=== PATIENT | female | born 1965 | race Caucasian/White ===

== ENCOUNTER → 2018-01-29 11:33 | Outpatient (CLI) | payer MEDICARE, SELFPAY ==
--- NOTE | 2018-01-29 11:40 | RAD_ITS ---
STUDY: X-RAY - LEFT KNEE REASON FOR EXAM: Female, 52 years old. Patient fell. Pain TECHNIQUE: 4 view(s) of the knee. COMPARISON: January 16, 2016 FINDINGS: There is a total left knee replacement with a metallic hardware in good position. There are no acute fractures. The quadriceps and patellar tendons are normal and there is no knee joint effusion. RAD/Knee 4 or More Views IMPRESSION: Total knee replacement. Nothing acute Electronically Signed: Gunnar Mandel, at 5:17 EDT Tel , Service support ,
== END ==
PROVIDERS: Family Provider Family Medicine; PCP Family Medicine; Visit Provider Family Medicine
DX: M25.562 Pain in left knee (principal)
CPT/HCPCS: 73564

== ENCOUNTER 2018-05-03 11:30 | Outpatient (RCR) | payer MEDICARE, SELFPAY ==
--- NOTE | 2018-03-22 14:55 | HP.PTEVAL ---
Patient's Visit Information NU RAMOS is a 52 year old F referred to Physical Therapy by Klaudia Ashley DO with a diagnosis of Left Knee Pain. Date of Evaluation: 03/22/18 Physical Therapist: Celeste Perkins - Visit Plan Frequency: 3x /Week Duration: 3 Weeks Plan: Focus on LE and core s/s for functional mobility in an aquatic setting - Subjective Subjective: Patient reports that a couple of years ago she had a TKR on the left- fell on it and has bursitis. She has Bariatric surgery in January- she has to use a cart at [facility] due to the knee pain. TKR in the left 2 years ago then 6 months later had a fall but everything looks good on it. The right is very arthritic. Trying to get her weight down and she can't get down on her knees. Recently landed on the knee again and its pretty sore. Left: worst: 10 right: 10 but thats like that all the time- is probably going have to have that replaced. Does not get out of bed befoer she takes a pain pill (Tramadol and Tylenol)- has to use a cane in the AM. Both knees give out on her. Most comfortable position is sitting. 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 Pain is located on the anterior knee and the medial knee. Dr. Acevedo did her knee replacement. No radiating pain- no N/T in the feet. Has not had recent injections in her knees. Had x-rays on the knee which was good. Describes the pain as sharp/shooting and hard to put weight through it. Is not currently seeing an ortho for the right knee. One story home with 3 stairs to get in- no problems negotiating them. Sleep: sometimes it wakes her up at night. PMHx/Meds: no changes - Objective Posture: FH, RS. Gait: slightly antalgic- decreased stance on the left LE with poor heel/toe pattern. Stairs: asc/desc 8 recip with 2 HR- slow neeta with poor control with descent. HR/TR: able with pain TR. Balance: unable to SLS without UE A. Palpation: tender along medial joint line and patella. Observation: mild swelling distal to the patealla. ROM: 0-120 degrees. Strength: Ankle: 5/5, Knee: 4/5, Hip: 4/5 Core: fair minus. Flex: HS: moderate, Gastroc: moderate - Goals Goal 1:: Patient will be I with HEP and progression Goal Time Frame: 4-6 Weeks Goal 2:: Patient will demo 4+/5 strength in LE Goal Time Frame: 4-6 Weeks Goal 3:: Patient will asc/desc 8 stairs with 1 HR and good control Goal Time Frame: 4-6 Weeks Goal 4:: Patient will ambulate >300 feet with a normalized gait pattern Goal Time Frame: 4-6 Weeks - Rehabilitation Potential Physical Therapy Diagnosis: Patient presents with hypomobility- she has decreased strength and muscular endurance leading to abnormal giat and pain with ADL's. Rehabilitation Potential: Fair - Anticipated Interventions Patient/Client Instruction: Educate patient on: Benefits of Fitness Program Therapeutic Exercise to Include: Power training, Balance training, Body mechanics, Postural training, Flexibilty training, Gait and locomotor training, In an aquatic setting Thank you for the opportunity to evaluate your patient. For Medicare and Medicare HMO plans, please review the plan of care and approve it. It will need to be FAXED BACK to us at [phone] for Medicare purposes. Please let me know if there are questions or concerns regarding this plan of care. Physician Signature: Date:
--- NOTE | 2018-04-12 15:31 | HP.PTREVAL ---
Klaudia Ashley, DO, It has been my pleasure to treat NU RAMOS over the last 8 visits for Left Knee Pain. Please see the progress note below for an update on the physical therapy plan of care! Subjective: Patient reports that the knee is stronger but the pain is still there. Feels like something on the top of the knee is dented. Worst: 10/10- along the medial side of the knee- In the water she is much more stable. Is able to do more on land now and can go up/down the stairs with more confidence. Sleep: sometimes disturbed- gets up in the AM and takes her pill due to the OA and the weather. 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 Pretty sore after being up on it for long periods of time. Objective/Function: Posture: no pertinent abnormalities. Observation: R medial infrapatellar bursitits. Gait: WFL, slight lateral lean to L, favoring R leg. Stairs: 1 HR reciprocal pattern ascend and descend; favor R leg. AROM: LE WNL, able to toe and heel raise with PT hand placement on shoulder, unstable. Balance: SLS R le seconds, unstable. SLS L leg: unable to perform due to instability. Strength: LE 5/5 throughout. Plan Plan: Progression to land exercise program and dry needling modality. Goals Goal 1:: Patient will be I with HEP and progression Goal Time Frame: 4-6 Weeks Goal Progress: Progressing Goal 2:: Patient will demo 4+/5 strength in LE Goal Time Frame: 4-6 Weeks Goal Progress: Goal Met Goal 3:: Patient will asc/desc 8 stairs with 1 HR and good control Goal Time Frame: 4-6 Weeks Goal Progress: Goal Met Goal 4:: Patient will ambulate >300 feet with a normalized gait pattern Goal Time Frame: 4-6 Weeks Goal Progress: Progressing Goal 5:: Jennnet will SLS for 10 seconds on each LE Goal Time Frame: 4-6 Weeks Anticipated Interventions Patient/Client Instruction: Educate patient on: Benefits of Fitness Program Therapeutic Exercise to Include: Power training, Balance training, Body mechanics, Postural training, Flexibilty training, Gait and locomotor training, In an aquatic setting Please do not hesitate to contact me at [phone] by phone or if you have questions or concerns regarding this new plan of care! Sincerely, Celeste Perkins
--- NOTE | 2018-05-03 13:23 | HP.PTDCSUM_ITS ---
HP - PT D/C Summary It has been my pleasure to treat NU RAMOS under orders from Klaudia Ashley DO, for the diagnosis of Left Knee Pain for a total of 14 visit(s). Discharge Date: Please see the following information for a summary of their discharge status. - Subjective Subjective: [place] pretty good all day after performing housework all of Thursday. Knee feels really good today. Current pain 0/10, best 0/10, worst 3/10. Pain stays local. No trouble at home or with stairs. Doing more than thought able to do. Plans to take knee brace at beach. 90% better than when came in; really enjoyed dry needling. - Pain L knee Pain Intensity (Out of 10): 3 - Overall Improvement % Improvement: 90 - Objective Objective/Function: Gait: WFL. Stairs: ascend with 1 HR reciprocally with good control; descend reciprocally no HR. AROM: LE WFL. Able to heel raise without UE support, required UE support and tactile lumbar support to toe raise. Balance: SL 14 seconds on L and 7 seconds on R. Strength: LE 5/5 bilat throughout except R hip flex. 4+/5. - Goals Goal 1:: Patient will be I with HEP and progression Goal Progress: Goal Met Goal 2:: Patient will demo 4+/5 strength in LE Goal Progress: Goal Met Goal 3:: Patient will asc/desc 8 stairs with 1 HR and good control Goal Progress: Goal Met Goal 4:: Patient will ambulate >300 feet with a normalized gait pattern Goal Progress: Goal Met Goal 5:: Jennnet will SLS for 10 seconds on each LE Goal Progress: Progressing - Plan Plan: Discharge to HEP. - D/C Information If there are questions or concerns regarding this patient's physical therapy, please feel free to call me at [phone]. Thank you for the referral of this patient. Sincerely, Celeste Perkins
== END 2018-05-03 19:00 | disposition home or self-care (01) ==
LOC: PT 11:30
PROVIDERS: Family Provider Family Medicine; PCP Family Medicine; Visit Provider Family Medicine
DX: M25.562 Pain in left knee (principal); M70.52 Other bursitis of knee, left knee
CPT/HCPCS: 97110; 97113; 97161; 97164

== ENCOUNTER → 2018-05-31 16:18 | Outpatient (CLI) | payer MEDICARE, SELFPAY ==
[2018-05-31 17:38] LABS: Erythrocyte Sedimentation Rate 49 mm/hr (0-30)
[2018-05-31 18:00] LABS: Rheumatoid Factor < 10.0 IU/mL (<15)
[2018-06-02 14:43] LABS: ANTINUCLEAR ANTIBODIES DIRECT Negative (Negative)
[2018-06-04 11:31] LABS: CCP IgG Antibodies 8 units (0-19)
== END ==
PROVIDERS: Family Provider Family Medicine; PCP Family Medicine; Visit Provider Family Medicine
DX: M79.10 Myalgia, unspecified site (principal); M25.50 Pain in unspecified joint
CPT/HCPCS: 36415; 85652; 86038; 86140; 86200; 86431

== ENCOUNTER → 2018-06-28 12:18 | Outpatient (CLI) | payer MEDICARE, SELFPAY ==
[2017-03-24 08:41] VITALS: BMI 47.2
--- NOTE | 2018-06-28 12:25 | RAD_ITS ---
HISTORY: inflammatory polyarthropathy COMPARISON: None FINDINGS: AP Pelvis: 1 view. The right and left hips are symmetrical and appear normal. Right pelvic phlebolith. No fracture or acute disease. Degenerative arthritis with marginal sclerosis and inferior spurring of the left SI joint. Degenerative spondylosis of the lower lumbar spine. RAD/Pelvis 1 or 2 Views IMPRESSION: 1. Lower lumbar degenerative spondylosis and left SI joint degenerative arthritis. 2. Negative bilateral hips. 3. No acute disease. at 0441 Reported and signed by: Ian Muro MD Electronically Signed: Ian Muro, at 4:39 EST Tel , Service support ,
[2018-06-28 14:25] LABS: Absolute Lymphocyte Count 3.09 X10^3/ul (0.83-4.51); Absolute Neutrophil Count 3.5 X10^3/uL (2.0-7.7); Basophil# 0.06 X10^3/uL; Basophil% 0.8 % (0-1); Eosinophils% 1.4 % (0-5); Hematocrit 41.9 % (37-47); Lymphocyte # 3.09 X10^3/ul (4.0); Mean Corp Hgb Conc 33.4 g/gl (32-36); Mean Corpuscular Hgb 32.2 pg (27.0-32.0); Mean Corpuscular Volume 96.3 fL (81-99); Mean Platelet Vol. 11.1 fl (6.2-12.0); Monocyte# 0.45 X10^3/uL; Monocyte% 6.3 % (0-10); Neutrophil # 3.46 X10^3/uL (2.7-7.7); Neutrophil % 48.2 % (47-70); Platelet Count 263 K/mm3 (150-450); RBC Distribution Width CV 15.4 % (11.6-14.6); RBC Distribution Width SD 52.5 fl (35.1-43.9); Red Blood Count 4.35 M/mm3 (4.2-5.4); White Blood Count 7.2 K/mm3 (4.4-11.0)
[2018-06-28 14:30] LABS: POSITIVE COUNT NO; POSITIVE DIFFERENTIAL NO; POSITIVE MORPHOLOGY NO
[2018-06-28 14:33] LABS: Erythrocyte Sedimentation Rate 19 mm/hr (0-30)
[2018-06-28 15:00] LABS: ALB/GLOB Ratio 0.8 RATIO (0.9-2.4); AST(SGOT) 22 U/L (15-37); Alanine Aminotransfer ALT/SGPT 27 U/L (13-56); Albumin, Serum 3.5 g/dL (3.2-5.0); Alkaline Phosphatase 116 U/L (45-117); Anion Gap 12 (5-15); BUN 15 mg/dL (7-18); BUN/Creat Ratio 15.1 RATIO (10-20); Calcium,Total 9.3 mg/dL (8.5-10.1); Chloride 99 mmol/L (98-107); EST Glomerular Filtration Rate 62 mL/min (>60); Est Glom Filt Rate - Afr Amer 75 mL/min (>60); Globulin 4.3 g/dL (2.2-4.2); Glucose 85 mg/dL (74-106); Potassium 2.7 mmol/L (3.5-5.1); Protein, Total 7.8 g/dL (6.4-8.2); Rheumatoid Factor < 10.0 IU/mL (<15); Sodium Level 141 mmol/L (136-145)
[2018-06-29 16:51] LABS: ANTINUCLEAR ANTIBODIES DIRECT Negative (Negative)
[2018-07-03 09:21] LABS: CCP IgG Antibodies 9 units (0-19); HEPATITIS B SURFACE AG Negative (Negative); HLA B27 Positive (.); Hep B Surface Antibodies Non Reactive (.); Hep C Antibodies 0.2 s/co ratio (0.0-0.9)
== END ==
PROVIDERS: Family Provider Family Medicine; PCP Family Medicine; Referring Provider Internal Medicine Rheumatology; Visit Provider Internal Medicine Rheumatology
DX: M06.4 Inflammatory polyarthropathy (principal); M17.0 Bilateral primary osteoarthritis of knee; M21.40 Flat foot [pes planus] (acquired), unspecified foot; K21.9 Gastro-esophageal reflux disease without esophagitis; Z87.11 Personal history of peptic ulcer disease; Z98.84 Bariatric surgery status
CPT/HCPCS: 36415; 72170; 80053; 81374; 85025; 85652; 86038; 86140; 86200; 86431; 86706; 86803; 87340

== ENCOUNTER → 2018-07-12 14:49 | Outpatient (CLI) | payer MEDICARE, SELFPAY ==
[2018-07-12 18:29] LABS: Anion Gap 10 (5-15); BUN 10 mg/dL (7-18); Calcium,Total 8.8 mg/dL (8.5-10.1); Chloride 100 mmol/L (98-107); Creatinine, Serum 0.91 mg/dL (0.55-1.02); EST Glomerular Filtration Rate 68 mL/min (>60); Est Glom Filt Rate - Afr Amer 83 mL/min (>60); Glucose 85 mg/dL (74-106); Potassium 3.3 mmol/L (3.5-5.1); Sodium Level 140 mmol/L (136-145)
== END ==
PROVIDERS: Family Provider Family Medicine; PCP Family Medicine; Visit Provider Family Medicine
DX: E87.6 Hypokalemia (principal)
CPT/HCPCS: 36415; 80048

== ENCOUNTER → 2019-01-17 | Outpatient (CLI) | payer MEDICARE, SELFPAY ==
[2017-03-24 08:41] VITALS: BMI 47.2
[2019-01-17 10:21] LABS: Absolute Lymphocyte Count 1.85 X10^3/ul (0.83-4.51); Absolute Neutrophil Count 3.7 X10^3/uL (2.0-7.7); Basophil# 0.06 X10^3/uL; Eosinophil# 0.07 X10^3/uL; Eosinophils% 1.1 % (0-5); Hematocrit 39.8 % (37-47); Hemoglobin 13.1 g/dl (12.0-15.0); Lymphocyte # 1.85 X10^3/ul (4.0); Lymphocyte % 29.5 % (19-41); Mean Corp Hgb Conc 32.9 g/gl (32-36); Mean Corpuscular Hgb 33.7 pg (27.0-32.0); Mean Corpuscular Volume 102.3 fL (81-99); Mean Platelet Vol. 10.4 fl (6.2-12.0); Monocyte# 0.61 X10^3/uL; Monocyte% 9.7 % (0-10); Neutrophil # 3.68 X10^3/uL (2.7-7.7); Neutrophil % 58.5 % (47-70); Platelet Count 269 K/mm3 (150-450); RBC Distribution Width CV 16.3 % (11.6-14.6); RBC Distribution Width SD 61.2 fl (35.1-43.9); Red Blood Count 3.89 M/mm3 (4.2-5.4); White Blood Count 6.3 K/mm3 (4.4-11.0)
[2019-01-17 10:22] LABS: POSITIVE COUNT NO; POSITIVE DIFFERENTIAL NO; POSITIVE MORPHOLOGY NO
[2019-01-17 11:05] LABS: ALB/GLOB Ratio 0.8 RATIO (0.9-2.4); AST(SGOT) 45 U/L (15-37); Alanine Aminotransfer ALT/SGPT 40 U/L (13-56); Albumin, Serum 3.4 g/dL (3.2-5.0); Alkaline Phosphatase 111 U/L (45-117); Anion Gap 12 (5-15); BUN 10 mg/dL (7-18); Calcium,Total 9.4 mg/dL (8.5-10.1); Chloride 101 mmol/L (98-107); Creatinine, Serum 0.83 mg/dL (0.55-1.02); EST Glomerular Filtration Rate 76 mL/min (>60); Est Glom Filt Rate - Afr Amer 92 mL/min (>60); Glucose 75 mg/dL (74-106); Potassium 3.1 mmol/L (3.5-5.1); Protein, Total 7.4 g/dL (6.4-8.2); Sodium Level 141 mmol/L (136-145)
== END | disposition home or self-care (01) ==
LOC: MTLAB 08:34
PROVIDERS: Family Provider Family Medicine; PCP Family Medicine; Referring Provider Internal Medicine Rheumatology; Visit Provider Internal Medicine Rheumatology
DX: M06.4 Inflammatory polyarthropathy (principal); M17.0 Bilateral primary osteoarthritis of knee; M21.40 Flat foot [pes planus] (acquired), unspecified foot; K21.9 Gastro-esophageal reflux disease without esophagitis; Z87.11 Personal history of peptic ulcer disease; Z98.84 Bariatric surgery status; Z79.899 Other long term (current) drug therapy
CPT/HCPCS: 36415; 80053; 85025

== ENCOUNTER → 2019-09-05 | Outpatient (CLI) | payer MEDICARE, SELFPAY ==
[2017-03-24 08:41] VITALS: BMI 47.2
[2019-09-05 12:23] LABS: Absolute Lymphocyte Count 0.81 X10^3/uL (0.83-4.51); Absolute Neutrophil Count 5.2 X10^3/uL (2.0-7.7); Basophil# 0.09 X10^3/uL; Basophil% 1.4 % (0-1); Eosinophil# 0.02 X10^3/uL; Eosinophils% 0.3 % (0-5); Hematocrit 41.1 % (37-47); Hemoglobin 13.5 g/dL (12.0-15.0); Lymphocyte # 0.81 X10^3/ul (4.0); Lymphocyte % 12.8 % (19-41); Mean Corp Hgb Conc 32.8 g/dL (32-36); Mean Corpuscular Hgb 34.8 pg (27.0-32.0); Mean Corpuscular Volume 105.9 fL (81-99); Mean Platelet Vol. 9.3 fl (6.2-12.0); Monocyte# 0.27 X10^3/uL; Monocyte% 4.3 % (0-10); NRBC Flagged by Analyzer 0 % (0-5); Neutrophil # 5.15 X10^3/uL (2.7-7.7); Platelet Count 283 K/mm3 (150-450); RBC Distribution Width CV 14.9 % (11.6-14.6); Red Blood Count 3.88 M/mm3 (4.2-5.4); White Blood Count 6.4 K/mm3 (4.4-11.0)
[2019-09-05 12:31] LABS: ALB/GLOB Ratio 0.9 RATIO (0.9-2.4); AST(SGOT) 63 U/L (15-37); Alanine Aminotransfer ALT/SGPT 60 U/L (13-56); Albumin, Serum 3.7 g/dL (3.2-5.0); Alkaline Phosphatase 105 U/L (45-117); Anion Gap 6 (5-15); BUN 9 mg/dL (7-18); BUN/Creat Ratio 12.4 RATIO (10-20); Calcium,Total 9.4 mg/dL (8.5-10.1); Chloride 105 mmol/L (98-107); Creatinine, Serum 0.73 mg/dL (0.55-1.02); EST Glomerular Filtration Rate 88 mL/min (>60); Est Glom Filt Rate - Afr Amer 107 mL/min (>60); Globulin 3.9 g/dL (2.2-4.2); Glucose 95 mg/dL (74-106); Potassium 3.6 mmol/L (3.5-5.1); Protein, Total 7.6 g/dL (6.4-8.2); Sodium Level 138 mmol/L (136-145)
== END | disposition home or self-care (01) ==
LOC: MTLAB 10:41
PROVIDERS: PCP Family Medicine; Referring Provider Internal Medicine Rheumatology; Visit Provider Internal Medicine Rheumatology
DX: M06.4 Inflammatory polyarthropathy (principal); M17.0 Bilateral primary osteoarthritis of knee; M21.40 Flat foot [pes planus] (acquired), unspecified foot; K21.9 Gastro-esophageal reflux disease without esophagitis; Z87.11 Personal history of peptic ulcer disease; Z98.84 Bariatric surgery status; Z79.899 Other long term (current) drug therapy
CPT/HCPCS: 36415; 80053; 85025

== ENCOUNTER → 2020-01-11 | Outpatient (CLI) | payer MEDICARE, SELFPAY ==
[2017-03-24 08:41] VITALS: BMI 47.2
[2020-01-11 15:34] LABS: Absolute Lymphocyte Count 1.79 X10^3/uL (0.83-4.51); Absolute Neutrophil Count 2.7 X10^3/uL (2.0-7.7); Basophil# 0.08 X10^3/uL; Basophil% 1.5 % (0-1); Eosinophil# 0.06 X10^3/uL; Eosinophils% 1.1 % (0-5); Hematocrit 39.4 % (37-47); Hemoglobin 12.8 g/dL (12.0-15.0); Lymphocyte # 1.79 X10^3/ul (4.0); Lymphocyte % 34.1 % (19-41); Mean Corp Hgb Conc 32.5 g/dL (32-36); Mean Corpuscular Hgb 35.4 pg (27.0-32.0); Mean Corpuscular Volume 108.8 fL (81-99); Mean Platelet Vol. 10.8 fl (6.2-12.0); Monocyte# 0.59 X10^3/uL; Monocyte% 11.2 % (0-10); NRBC Flagged by Analyzer 0 % (0-5); Neutrophil # 2.71 X10^3/uL (2.7-7.7); Neutrophil % 51.7 % (47-70); Platelet Count 140 K/mm3 (150-450); RBC Distribution Width CV 15.7 % (11.6-14.6); RBC Distribution Width SD 62.4 fl (35.1-43.9); Red Blood Count 3.62 M/mm3 (4.2-5.4); White Blood Count 5.3 K/mm3 (4.4-11.0)
[2020-01-11 15:43] LABS: Vitamin B12 819 pg/mL (211-911)
[2020-01-11 16:27] LABS: ALB/GLOB Ratio 0.9 RATIO (0.9-2.4); AST(SGOT) 221 U/L (15-37); Alanine Aminotransfer ALT/SGPT 104 U/L (13-56); Albumin, Serum 3.2 g/dL (3.2-5.0); Alkaline Phosphatase 139 U/L (45-117); Anion Gap 9 (5-15); BUN 10 mg/dL (7-18); Calcium,Total 8.8 mg/dL (8.5-10.1); Chloride 101 mmol/L (98-107); Creatinine, Serum 0.83 mg/dL (0.55-1.02); EST Glomerular Filtration Rate 75 mL/min (>60); Est Glom Filt Rate - Afr Amer 91 mL/min (>60); Ferritin 149 ng/mL (8-252); Globulin 3.6 g/dL (2.2-4.2); Glucose 92 mg/dL (74-106); Iron 51 ug/dL (50-170); Magnesium 1.5 mg/dL (1.6-2.6); Potassium 2.9 mmol/L (3.5-5.1); Protein, Total 6.8 g/dL (6.4-8.2); Sodium Level 141 mmol/L (136-145); Thyroid Stim Hormone (TSH) 0.82 uIU/mL (0.358-3.74)
--- OUTSIDE RECORDS SUMMARY | 2020-05-20 11:05 | XMS RPT_ITS | CCD ---
:1965 External Reference #:[id number] Author Organization [facility] Care Team Providers Name Role Phone LAKTASH, (MACHINE STRAP BUCKLER) Unavailable Unavailable HUNTER, (MACHINE STRAP BUCKLER) Unavailable Unavailable KINGSLEY Unavailable Unavailable KINGSLEY Unavailable Unavailable LAKTASH, (MACHINE STRAP BUCKLER) Unavailable Unavailable LAKTASH, (MACHINE STRAP BUCKLER) Unavailable Unavailable HOWARD Unavailable Unavailable KINGSLEY Unavailable Unavailable HOWARD Unavailable Unavailable LAKTASH, (MACHINE STRAP BUCKLER) Unavailable Unavailable LAKTASH, (MACHINE STRAP BUCKLER) Unavailable Unavailable LAKTASH, (MACHINE STRAP BUCKLER) Unavailable Unavailable LAKTASH, (MACHINE STRAP BUCKLER) Unavailable Unavailable HOWARD Unavailable Unavailable HOWARD Unavailable Unavailable LAKTASH, (MACHINE STRAP BUCKLER) Unavailable Unavailable LAKTASH, (MACHINE STRAP BUCKLER) Unavailable Unavailable LAKTASH, (MACHINE STRAP BUCKLER) Unavailable Unavailable LAKTASH, (MACHINE STRAP BUCKLER) Unavailable Unavailable MIEDEL, JONO Unavailable Unavailable LAKTASH, (MACHINE STRAP BUCKLER) Unavailable Unavailable LAKTASH, (MACHINE STRAP BUCKLER) Unavailable Unavailable KINGSLEY Unavailable Unavailable KINGSLEY Unavailable Unavailable LAKTASH, (MACHINE STRAP BUCKLER) Unavailable Unavailable KINGSLEY Unavailable Unavailable KINGSLEY Unavailable Unavailable KINGSLEY Unavailable Unavailable LAKTASH, (MACHINE STRAP BUCKLER) Unavailable Unavailable KINGSLEY Unavailable Unavailable KINGSLEY Unavailable Unavailable LAKTASH, M Unavailable Unavailable IMCA Unavailable Unavailable IMCA Unavailable Unavailable LAKTASH, M Unavailable Unavailable IMCA Unavailable Unavailable LAKTASH, M Unavailable Unavailable IMCA Unavailable Unavailable LAKTASH, M Unavailable Unavailable IMCA Unavailable Unavailable LAKTASH, M Unavailable Unavailable IMCA Unavailable Unavailable IMCA Unavailable Unavailable LAKTASH, M Unavailable Unavailable IMCA Unavailable Unavailable HOWARD Unavailable Unavailable HOWARD Unavailable Unavailable IMCA Unavailable Unavailable HOWARD Unavailable Unavailable IMCA Unavailable Unavailable HOWARD Unavailable Unavailable KINGSLEY, R Unavailable Unavailable IMCA Unavailable Unavailable LAKTASH, M Unavailable Unavailable IMCA Unavailable Unavailable IMCA Unavailable Unavailable LAKTASH, M Unavailable Unavailable IMCA Unavailable Unavailable IMCA Unavailable Unavailable KINGSLEY, R Unavailable Unavailable IMCA Unavailable Unavailable IMCA Unavailable Unavailable KINGSLEY, R Unavailable Unavailable IMCA Unavailable Unavailable IMCA Unavailable Unavailable LAKTASH, M Unavailable Unavailable IMCA Unavailable Unavailable IMCA Unavailable Unavailable KINGSLEY, R Unavailable Unavailable KINGSLEY, R Unavailable Unavailable IMCA Unavailable Unavailable KINGSLEY, R Unavailable Unavailable KINGSLEY, R Unavailable Unavailable IMCA Unavailable Unavailable LAKTASH, M Unavailable Unavailable IMCA Unavailable Unavailable LAKTASH, M Unavailable Unavailable IMCA Unavailable Unavailable LAKTASH, M Unavailable Unavailable IMCA Unavailable Unavailable LAKTASH, M Unavailable Unavailable IMCA Unavailable Unavailable IMCA Unavailable Unavailable LAKTASH, M Unavailable Unavailable IMCA Unavailable Unavailable LAKTASH, M Unavailable Unavailable IMCA Unavailable Unavailable IMCA Unavailable Unavailable KINGSLEY, R Unavailable Unavailable IMCA Unavailable Unavailable IMCA Unavailable Unavailable KINGSLEY, R Unavailable Unavailable IMCA Unavailable Unavailable IMCA Unavailable Unavailable LAKTASH, M Unavailable Unavailable IMCA Unavailable Unavailable LAKTASH, M Unavailable Unavailable IMCA Unavailable Unavailable IMCA Unavailable Unavailable KINGSLEY, R Unavailable Unavailable IMCA Unavailable Unavailable LAKTASH, M Unavailable Unavailable IMCA Unavailable Unavailable IMCA Unavailable Unavailable Siders, C Unavailable Unavailable Deep GÓMEZ, M Unavailable Aminata Ashley Primary Care Provider Pcp Unavailable Unavailable Allergies Reported Allergen Reaction(s) Severity Date of Onset Location Bee Translations: [ Swelling 03-15-2013 - Kartik arboleda [facility] BEES, BEES, BEES] Cigar Packer And Shader ository Medications Medication Name Sig Date Prescriber Location Amoxicillin AMOXICILLIN 500 MG 12-14-2015 [facility] Surgi dann CAPS 4 po 60 12-27-2015 [facility] ([phone]) minutesprior to procedure AMOXICILLIN [id number] Elina Suárez PADee Budesonide / SYMBICORT 160-4.5 12-27-2015 [facility] Surgic al formoterol MCG/ACT AERO 2 puffs 03-03-2017 [facility] ([id number]) bid BUDESONIDE-FORMOTEROL FUMARATE [id number] Joss Adame MD celecoxib CELEBREX 200 MG CAPS 12-27-2015 - [facility] Kim gical 1 po daily 03-03-2017 [facility] (62582) CELECOXIB [id number] Joss Adame MD cloNIDine CLONIDINE HCL 0.2 MG 08-10-2014 [facility] Kim gical TABS daily [facility] (42477) CLONIDINE HCL [id number] Yamile Montes cloNIDine HCl (CATAPRES) 0.2 mg tablet Ccf Provi marleni [facility] (22684) Take 0.2 mg by mouth twice daily. 0 Active Comment: Take 0.2 mg by mouth twice d aily. Diclofenac DICLOFENAC SODIUM 25 MG 08-10-2014 - [facility] Surgical TBEC twice daily 12-27-2015 [facility] ([id number]) DICLOFENAC SODIUM [id number] Elina Suárez PA-C fluticasone FLOVENT HFA 110 MCG/ACT 08-10-2014 - [facility] Surgical AERO two puffs daily 12-27-2015 [facility] (61408) FLUTICASONE PROPIONATE HFA [id number] Yamile Montes hydroCHLOROthiazide HYDROCHLOROTHIAZIDE 25 MG 08-10-2014 - [facility] Surgical TABS One tablet by mouth 12-27-2015 [facility] (74381) daily HYDROCHLOROTHIAZIDE [id number] Joss Adame MD Comment: Take 25 mg by mouth once aicha ly. MULTIPLE VITAMINS-MINERALS CENTRUM MULTIGUMMIES CHEW 12-27-2015 [facility] Surgical Take 2 gummies daily [facility] (64329) MULTIPLE VITAMINS-MINERALS [id number] Elina Suárez PA-C CENTRUM MULTIGUMMIES CHEW Take 2 gummies 12-27-2015 [facility] (70702) daily MULTIPLE VITAMINS-MINERALS [id number] Elina Suárez PA-C multivitamin tablet multivitamin tablet Take Ccf Provi marleni [facility] 1 tablet by mouth once Provider (4419 [id number]) daily. 0 Active Comment: Take 1 tablet by mouth once daily. nabumetone NABUMETONE 500 MG TABS One 03-03-2017 [facility] tablet by mouth twice daily (40586) NABUMETONE [id number] Joss Adame MD pantoprazole PROTONIX 20 MG TBEC 03-03-2017 [facility] PANTOPRAZOLE SODIUM [id number] (44004) Joss Adame MD pantoprazole DR (PROTONIX) 20 mg Ccf Provider [facility] (43881) tablet Take 10 mg by mouth once daily. 0 Active Comment: Take 10 mg by mouth once aicha ly. Simvastatin SIMVASTATIN 40 MG 03-03-2017 [facility] Surgic al TABS One tablet by Associate [facility] (64988) mouth daily SIMVASTATIN [id number] Joss Adame MD terbinafine TERBINAFINE HCL 250 08-10-2014 - [facility] Surg ical MG TABS daily 12-27-2015 [facility] (44 691) TERBINAFINE HCL [id number] Yamile Montes Thiamine thiamine (VITAMIN 11-06-2017 [facility] ([employer] [facility] 100 mg tablet Laktash Lilly (50132) Indications: ([employer]) Thiamine deficiency Laktash Take 1 tablet by mouth once daily. 90 tablet 0 11/06/2017 Active Comment: Take 1 tablet by mouth once daily. traMADol TRAMADOL HCL 50 MG TABS 08-10-2014 - 12-27-2015 [facility] once every six hours as (446 91) needed TRAMADOL HCL [id number] Yamile Montes Problems Active Problems Category Problem Name Status Date Location Esophageal disorders Gastro-esophageal Active 08-20-2017 - [facility] reflux disease without Medic [facility] esophagitis (83402) Fluid and electrolyte Hypokalemia Active 04-23-2018 - [facility] (28207) Joint disorders and Loose body in knee Active 08-10-2014 - [facility] Surgical dislocations; [facility] (44 691) trauma-related Osteoarthritis Osteoarthritis of knee Active 08-22-2014 - [facility] (446 91) Other non-traumatic Arthritis of knee Active 05-03-2013 - [facility] joint disorders (22385) Other nutritional; Morbid (severe) obesity Active 01-05-2018 - [facility] endocrine; and due to excess calories [facility] metabolic disorders (21596) Other nutritional; Severe obesity Active 01-05-2018 - [facility] endocrine; and (43159) metabolic disorders Other nutritional; Morbid obesity Active 12-15-2017 - [facility] endocrine; and (68223) metabolic disorders Substance-related Nicotine dependence, Active 07-22-2017 - [facility] disorders cigarettes, in [facility] Cent[facility] remission (88737) Unclassified Unknown / UNK(Unknown) Active 12-29-2017 - [facility] (49015) Unclassified Eating disorder, Active 09-29-2017 - [facility] (49204) Unclassified Obstructive sleep apnea Active 08-20-2017 - [facility] (40700) Unclassified Aftercare Active 08-09-2015 - [facility] (446 91) Past or Other Problems Category Problem Name Status Date Location Abdominal pain Abdominal pain Completed 03-03-2017 [facility] Surgica l [facility] (446 91) Nutritional deficiencies Vitamin deficiency, Completed [facility] unspecified [facility] (0000 0) Other gastrointestinal Bariatric surgery Completed 01-13-2018 - [facility] disorders status [facility] (0000 0) Other gastrointestinal Constipation Completed 03-03-2017 [facility] S urgical disorders [facility] (446 91) Other injuries and Injury of lower Completed 03-16-2015 [facility] Max rgical conditions due to extremity [facility] (11089) external causes Other lower respiratory Dyspnea Completed 12-27-2015 [facility] Surgical disease [facility] (446 91) Other non-traumatic joint Knee pain Completed 08-10-2014 [facility] Surgical disorders [facility] ([phone]) Other nutritional; Abnormal weight gain Completed 12-27-2015 - [facility] Surgical endocrine; and metabolic [facility] (24881) disorders Other skin disorders Disorder of skin Completed 12-27-2015 - [facility] (446 91) Residual codes; History of operative Completed 01-16-2016 [facility] Surgical unclassified procedure on knee [facility] (59617) Residual codes; Hypersomnia Completed 01-16-2016 [facility] Surgical unclassified [facility] (446 91) Spondylosis; Chronic low back Completed 06-05-2015 [facility] Surgica l intervertebral disc pain [facility] (47449) disorders; other back problems Unclassified Morbid (severe) 01-05-2018 - [facility] excess calories (17402) Results Result Name Value Range Unit Interpretation Flag Date Location progress on 2018-04 Protein mass HNO ID: [id number]: Liberty marks 04-23-2018 [facility]leService: (none)Author Type: Medical Center PhysicianType: Progress NotesFiled: ([id number]) 04/30/2018 10:37 AMNote Text:BARIATRIC SURGERY CLINICFOLLOW UP NOTEDate: April 23, 2018 Time: 2:35 PMName: Reta Tuttle SurgeryDate of Surgery: 01/05/18urgical Procedure: lap sleeve gastrectomyPre-surgical weight: 132.5 kg (292 lb)Other Bariatric SurgeriesNoneVisit:3 monthsToday's Visit:Wt 112.4 kg (247 lb 12.8 oz) BMI 41.11 kg/m2BMI 41.11 kg/(m2)Last Visit:Wt: 120.7 kg (266 lb 3.2 oz) BMI: 43.61 kg/(m2)Total weight loss:20 kg (44 lb 3.2 oz)%EWL: 32%COMPLICATIONS SINCE LAST VISIT?:NONEDIET INTAKE:tolerates Phase V dietDAILY SUPPLEMENTS:Calcium: Calcium Citrate w/ vitamin D (1200 - 1500mg)Multivitamin AND Minerals: 1 per dayIron Supplement: included in multi-vitaminVitamin A: included in multi-vitaminVitamin B12: 500 mcgB Complex: included in multi-vitaminBiotin: NoVitamin C: included in multi-vitaminVitamin D3: included in multi-vitaminVitamin E: included in multi-vitaminZinc: included in multi-vitaminOther: N/AEXERCISE: total minutes per week: 30-45 minutes of exercise per dayCurrent Outpatient Prescriptions:ursodiol (ACTIGALL) 300 mg capsule Take 1 capsule by mouth twice daily.START AFTER SURGERY.pantoprazole DR (PROTONIX) 20 mg tablet Take 10 mg by mouth once daily.thiamine (VITAMIN B-1) 100 mg tablet Take 1 tablet by mouth once daily.hydroCHLOROthiazide (HYDRODIURIL, ESIDRIX) 25 mg tablet Take 25 mg bymouth once daily.cloNIDine HCl (CATAPRES) 0.2 mg tablet Take 0.2 mg by mouth twice daily.multivitamin tablet Take 1 tablet by mouth once daily.No current facility-administered medications for this visit.ACTIVE PROBLEM LISTArthritis of KneeMorbid Obesity (Hcc)Obesity, Class III, BMI >= 40Class 3 Obesity With Body Mass Index (Bmi) of 40.0 to 44.9 in Adult ([facility])REVIEW OF SYSTEMS:CONSTITUTIONAL: Patient denies fevers, chills, sweatsCARDIOVASCULAR: Patient denies chest pains, palpitationsRESPIRATORY: No dyspnea on exertion, no wheezing or cough.GI: No nausea, vomiting, diarrhea, constipation, abdominal pain,hematochezia or melena.: No urinary hesitancy or dribbling. No nocturia or urinary frequency.PHYSICAL EXAM:PHYSICAL EXAMINATION:GENERAL: No apparent distress. Pt is alert and oriented x3. Mucousmembranes moist. No jaundice or scleral icterusVITAL SIGNS: HR, BP, Temp; NormalHEART: Regular rate and rhythmABDOMEN: Soft, nontender, and nondistended. Positive bowel sounds. Nohepatosplenomegaly was noted. Incisions healing nicely. No cellulitis orabscess. No evidence of site hernia.EXTREMITIES: Without any cyanosis, clubbing, rash, lesions or edema.A/P:- Normal post-OP course*- DISPOSITION: Return 3 months- EDUCATION: Pt encouraged to continue with positive lifestyle changes anddaily/vitamin intake- REFERRALS: N/AInstructions regarding potassium rich foods provided. We will repeat herpotassium level next week iLberty Wynn, MDAdvanced Laparoscopic and Bariatric Surgery Protein mass HNO ID: [id number]: Cinthia mckeon 04-23-2018 Kathie kang (Rd) Mathewice: (none)Author Medical Center Type: Registered DietitianType: ([id number]) Progress NotesFiled: 04/30/2018 10:37 AMNote Text:3 Month Post-opTravi Aparicio Fry52 year old female BP 131/69 Pulse 82 Ht 165.4 cm (5' 5.1) Wt112.4 kg (247 lb 12.8 oz) BMI 41.11 kg/m?SG 01/06/1844# lost since locbzju25%EWL based on IBW w/ BMI 25%BF: deferredTolerating by mouth well: YesNausea: NoVomiting: NoConstipation: Yes--using OTC softeners as neededDiarrhea:NoWeak/Shaky/Light-h eaded: NoEstimated Nutrient Intake:Average of 3 days food records: No24 hour recall/Usual intake: YesEstimated Intake per below:75 protein (g)1.2 g/KgIBW30 carbohydrate (g)510 txgq11-39 liquid intake (oz)Diet advancement/meal pattern reviewed: YesFood/bevearge information: 3 month diet h/oExercise: formal exercise daily for 30-45 minutes (bike ride for 15-20minutes + total gym 20-25 minutes + walk dog for 10 minutes)--haselliptical available in garage for upcoming winter24 hour recall:B-rice cereal 1/3 cupL-tuna pouch (17g)D- 1/2 turkey burger (1.5)Fluids-- coffee drink 1/2 cup milk, 1/2 cup decaf + 15g protein powder(19g), 2x/day.1/2 iraqi yogurt (triple zero) -- (9g)SF popsicleFluids--water 64oz fluidsIntake of obesity endorsing foods: noneFrequent grazing: noneSatiety between meals: yesAttendance at support group: no, encouraged attendanceVitamins:MVI: 2, complete, with [id number]: 1000mcgCalcium Citrate: 1200mg--1, 600 with lunch and 1, 600 with dinnerIron: N/AWritten information provided and reviewed: journalsupport group scheduleHigh potassium food list--encouraged to include these items in diet perteam recommendationsSupport group scheduleReinforced Behaviors:journalPt did not bring food journal to appointment today. Patient verbally reports achieving 55?70 grams protein of 64 ounce dailyprotein goal. She reports achieving over 64 ounces of fluid of 64 ouncefluid goal--both of these supported by 24-hour recall provided in officetoday. She is choosing decaf coffee mixed with 4 ounces of milk mixed with15 g protein from protein powder to aid with meeting goal, furtherguidance with use of this drink provided below. Per team recs, providedhigh potassium containing foods h/o and encouraged patient to include thiswith meals in appropriate portion sizes per guidelines.Goals: Goals - advance to 3 month diet instructions--2oz (14g) protein with 2oz fiber for lunch and dinner + (4oz decaf coffee + 15g protein + 4oz milk, 2times per day for Breakfast and after workout snack) + 2 healthy fat servings - bring food journal to all appointments - consider attending support group - formal exercise daily for 30 minutes (chair exercises, walking, biking)--peppy pace - review potassium rich foods and include items in dietCinthia Sellers RD, LD cnov on 2018-04-23 CNOV Office Visit Normal 04-23-2018 Kathie ([id number]) ---------RETA RAMOS ([id number]) 1965 F CHTDate Time Provider Department04/23/18 2:00 PM LIBERTY [id number] Medica l During your visit today, we recorded the following information about you: Pulse Blood pressure Center Weight Height 82/minute 131/ 69 112.[address], LD 04/30/2018 10:37 AM Signed3 ( [id number]) Month Post-opTravi Mcconnelly52 y ear old female BP 131/69 Pulse 82 Ht 165.4 cm (5' 5.1) Wt 112.4kg (247 lb 12.8 oz) B IN 41.11 kg/m?SG 01/06/1844# lost since ijgjebc80%EWL based on IBW w/ BMI 25%BF: deferredTolerating by mouth well: YesNausea: NoVomiting: NoConstipation: Yes--using OTC softeners as neededDiarrhea: NoWeak/Shaky/Light-headed: NoEstimated Nutrient Intake:Average of 3 days food records: No24 hour recall/Usual intake: YesEstimated Intake per below:75 protein (g)1.2 g/KgIBW30 carbohydrate (g)51 0 hvhn93-39 liquid intake (oz)Diet advancement/meal pattern reviewed: YesFood/bevearge information : 3 month diet h/oExercise: formal exercise daily for 30-45 minutes (bike ride for 15-20 minutes + total gym 20-25 minutes + walk dog for 10 minutes)--has elliptical availablein garage for upcom ing winter24 hour recall:B-rice cereal 1/3 cupL-tuna pouch (17g)D- 1/2 turkey burger (1 .5)Fluids-- coffee drink 1/2 cup milk, 1/2 cup decaf + 15g protein powder (19g),2x/day.1/2 gree k yogurt (triple zero) -- (9g)SF popsicleFluids--water 64oz fluidsIntake of obesity endo rsing foods: noneFrequent grazing: noneSatiety between meals: yesAttendance at support reta up: no, encouraged attendanceVitamins:MVI: 2, complete, with [id number]: 1000mcgCalcium Citrate: 1200mg--1, 600 with lunch and 1, 600 with dinnerIron: N/AWritten information provi ded and reviewed: journalsupport group scheduleHigh potassium food list--encouraged to include these items in diet per teamrecommendationsSupport group scheduleReinforced Behaviors :journalPt did not bring food journal to appointment today. Patient verbally reports achieving 5 5?70 grams protein of 64 ounce dailyprotein goal. She reports achieving over 64 ounces of fluid of 6 4 ounce fluidgoal--both of these supported by 24- hour recall provided in office today. Sheis choos ing decaf coffee mixed with 4 ounces of milk mixed with 15 g proteinfrom protein powder t o aid with meeting goal, further guidance with use of thisdrink provided below. Per team rec s, provided high potassium containing foodsh/o and encouraged patient to include this with meals i n appropriate portionsizes per guidelines.Goals: Goals - advance to 3 month diet instructions--2oz (14g) protein with 2oz fiber for lunch and dinner + (4oz decaf coffee + 15g protein + 4oz milk, 2 times per day for Breakfast and after workout snack) + 2 healthy fat servings - bring food aundreana l to all appointments - consider attending support group - formal exercise daily for 30 minute s (chair exercises, walking, biking)--peppy pace - review potassium rich foods and include items in dietChelsey ROSS Sellers, Bhavin Wynn MD 04/23/2018 2:35 PM SignedPlease continue to foc us on good fluid, protein, vitamin intake and exercisechoices, you're doing a great jobLiberty andino MD 04/30/2018 10:37 AM SignedBARIATRIC SURGERY CLINICFOLLOW UP NOTEDate: April 23, 2018 Time: 2:35 PMName: Reta Tuttle SurgeryDate of Surgery: 01/05/18urgical Procedure: la p sleeve gastrectomyPre-surgical weight: 132.5 kg (292 lb)Other Bariatric SurgeriesNoneVisit :3 monthsToday's Visit:Wt 112.4 kg (247 lb 12.8 oz) BMI 41.11 kg/m2BMI 41.11 kg/(m2)Last Visit:Wt: 120.7 kg (266 lb 3.2 oz) BMI: 43.61 kg/(m2)Total weight loss:20 kg (44 lb 3.2 oz)%EWL: 32%COMPLICAT IONS SINCE LAST VISIT?:NONEDIET INTAKE:tolerates Phase V dietDAILY SUPPLEMENTS:Calcium: Calcium Citrate w/ vitamin D (1200 - 1500mg)Multivitamin AND Minerals: 1 per dayIron Supplement: included in multi-vitaminVitamin A: included in multi- vitaminVitamin B12: 500 mcgB Complex: included in mu lti-vitaminBiotin: NoVitamin C: included in multi- vitaminVitamin D3: included in multi-vitaminVit esparza E: included in multi-vitaminZinc: included in multi-vitaminOther: N/AEXERCISE: total minutes p er week: 30-45 minutes of exercise per dayCurrent Outpatient Prescriptions:ursodiol (ACTI GALL) 300 mg capsule Take 1 capsule by mouth twice daily. STARTAFTER SURGERY.pantoprazole DR (PRO TONIX) 20 mg tablet Take 10 mg by mouth once daily.thiamine (VITAMIN B-1) 100 mg tablet Take 1 ta blet by mouth once daily.hydroCHLOROthiazide (HYDRODIURIL, ESIDRIX) 25 mg tablet Take 25 mg by mout honce daily.cloNIDine HCl (CATAPRES) 0.2 mg tablet Take 0.2 mg by mouth twice daily.multivitamin tab let Take 1 tablet by mouth once daily.No current facility-administered medications for this visit.A CTIVE PROBLEM LISTArthritis of KneeMorbid Obesity (Hcc)Obesity, Class III, BMI >= 40Class 3 Obesit y With Body Mass Index (Bmi) of 40.0 to 44.9 in Adult ([facility])REVIEW OF SYSTEMS:CONSTITUTIONAL: Jenn ent denies fevers, chills, sweatsCARDIOVASCULAR: Patient denies chest pains, palpitationsRESPIRATO RY: No dyspnea on exertion, no wheezing or cough.GI: No nausea, vomiting, diarrhea, constipa tion, abdominal pain, hematocheziaor melena.: No urinary hesitancy or dribbling. No nocturia or ur inary frequency.PHYSICAL EXAM:PHYSICAL EXAMINATION:GENERAL: No apparent distress. Pt is alert and or iented x3. Mucous membranesmoist. No jaundice or scleral icterusVITAL SIGNS: HR, BP, Temp; NormalH EART: Regular rate and rhythmABDOMEN: Soft, nontender, and nondistended. Positive bowel sounds. Nohepatosplenomegaly was noted. Incisions healing nicely. No cellulitis orabscess. No janna dence of site hernia.EXTREMITIES: Without any cyanosis, clubbing, rash, lesions or edema.A/P:- Daily l post-OP course*- DISPOSITION: Return 3 months- EDUCATION: Pt encouraged to continue with positive lifestyle changes anddaily/vitamin intake- REFERRALS: N/AInstructions regarding po tassium rich foods provided. We will repeat herpotassium level next week Rhina Montoya Laparoscopic and Bariatric SurgeryReferring Provider: SELF [[id number]]Allergkaterina s As of Date: 04/23/2018 Noted Allergy ReactionBEES 03/15/2013 7 - SwellingDate Reviewed: 04/23Reviewed by: Liberty Wynn - Fully AssessedReason for Visit: Established Patient [175]Mimi coleman Visit Diagnosis:S/P laparoscopic sleeve gastrectomy [Z98.84] Other Visit Diagnoses:Vitamin defi ciency [E56.9] Hypokalemia [E87.6]Order(s):POTASSIUM BLD [SQK1] Order #: [id number] FUTUREPrescrip tions as of 04/23/2018 Sig: URSODIOL 300 MG CAPSULE Take 1 capsule by mouth twice* PANTOPRAZOLE 20 MG TABLET,DEL* Take 10 mg by mouth once maged* THIAMINE HCL (VITAMIN B1) 100* Take 1 tablet by [facility] once d* HYDROCHLOROTHIAZIDE 25 MG TAB* Take 25 mg by mouth once maged* CLONIDINE HCL 0.2 MG T ABLET Take 0.2 mg by mouth twice da* MULTIVITAMIN TABLET Take 1 tablet by mouth once d*Problem List As Of Date 04/23/2018 Noted Resolved Arthritis of knee [M17.10] INVALID FOR* Meniscus tear [ S83.209A] 06/06/2013 Tear of medial cartilage or meniscus of knee, c*INVALID FOR*06/06/2013 Mor bid obesity (HCC) [E66.01] INVALID FOR* More... Obesity, Class III, BMI >= 40 [E66.01] INVALID FOR* Class 3 obesity with body mass index (BMI) of 4*INVALID FOR* Other instructions from your clini shelia: Please continue to focus on good fluid, protein, vitamin intake and exercise choices, you're doing a great jobDisposition: Return in about 3 months (around 07/23/2018) for thermo processor.Follow-up and Disposition History Recorded --------Questionnai re: AG GEN SURG BARIATRIC POST-OP VISITSWEIGHT (pounds) -> 247.8 -----Questionnaire: AG GEN SURG BARIATRIC PRE-OP VISITSEncounter Number: [id number] Status:Closed by LIBERTY WYNN MD on 04/30/18 vitamin b12 on 2017 Cobalamin (Vitamin B12) 2768 112-4094 pg/mL Normal 2017 [facility] ([id number]) Comment: Performed By: #### CBC, B12, SERFOL, PTHI, BMP ####[facility] [address] [place], [place] [phone]#### B1VIT ####[facility] [address] [place], [place] [phone] vitamin b1,whole bld on 2018-04-19 Vitamin B1 Whole Bld 95 70-180 nmol/L Normal 8 [facility] (06126) Comment: Result Comment: (NOTE)INTERP RETIVE INFORMATION: Vitamin B1, Whole BloodThis assay measures the concentra tion of thiamine diphosphate(TDP), the primary active form of vitamin B1. A pproximately 90percent of vitamin B1 present in whole blood is TDP. Thiamine andthiamine monophosphate, which comprise the remaining 10 percent,are not measured.Test developed and characteristics determined by [employer]. See Compliance Statement B: VHT/CSPerformed by [facility],[address] [place] [id number] tpz.VHT, Westley Moe MD, Lab. Director Performed By: #### CBC, BMP, PTHI, B12, SERFOL ####[facility] [address] [place], [place] [phone]#### B1VIT ####[facility] [address] [place], [place] [phone] pth, intact on 2017 PTH, Intact 33 15-65 pg/mL Normal 04-19-2018 [facility] [place] ([id number]) Comment: Performed By: #### CBC, B12, SERFOL, PTHI, BMP ####[facility] [address] [place], [place] [phone]#### B1VIT ####[facility] [address] [place], [place] [phone] folate, serum on 20-04-17 Folate, Serum >20.0 >4.7 Normal 04-19-2018 [facility] (57626) Comment: Result Comment: A result of > 20 ng/mL is not necessarilyindicative of a pathologic or treatablecondi tion: it reflects a limitation of thetest methodology.Assay reference range: 4.8 to 24.2 ng/mL.Suitable for detection of folate deficiency.Referen ce:Folate III (Folate III) [package insert V 1.0English].[employer], [place], [place]: June2015. Performed By: #### CBC, B12, SERFOL, PTHI, BMP ####[place] [address] [place], [place] [phone]#### B1VIT ####[facility] [address] [place], [place] [phone] cbc on 2018-04-19 Absolute nRBC <0.01 <0.01 Normal 04-19-2018 [facility] (04305) Comment: Performed By: #### CBC, B12, SERFOL, PTHI, BMP ####[place] [address] [place], [place] [phone]#### B1VIT ####[facility] [address] [place], [place] [phone] Erythrocyte distribution 17.7 11.5-15.0 % High 04-19 [facility] width Auto Ratio (RBC) [address] ([address]) Comment: Performed By: #### CBC, B12, SERFOL, PTHI, BMP ####[facility] [place], [place] [phone]#### B1VIT ####[facility] [address] [place], [place] [phone] Hematocrit Auto Volume 42.9 36.0-46.0 % Normal 018 [facility] (d) [facility] ([address]33) Comment: Performed By: #### CBC, B12, SERFOL, PTHI, BMP ####[address] [place], [place] [phone]#### B1VIT ####[facility] [address] [place], [place] [phone] Hemoglobin mass conc 13.8 11.5-15.5 g/dL Normal 8 [facility] (d) [address] ([address]) Comment: Performed By: #### CBC, B12, SERFOL, PTHI, BMP ####[address] [place], [place] [phone]#### B1VIT ####[facility] [address] [place], [place] [phone] MCH Auto Entitic mass 29.5 26.0-34.0 pG Normal 04-19-20 18 [facility] (RBC) [address] ([address]) Comment: Performed By: #### CBC, B12, SERFOL, PTHI, BMP ####[address] [place], [place] [phone]#### B1VIT ####[facility] [address] [place], [place] [phone] MCHC Auto mass conc 32.2 30.5-36.0 g/dL Normal 04-19-2018 [facility] (RBC) [address] ([address]) Comment: Performed By: #### CBC, B12, SERFOL, PTHI, BMP ####[address] [place], [place] [phone]#### B1VIT ####[facility] [address] [place], [place] [phone] MCV Auto Entitic volume 91.7 80.0-100.0 fL Normal 04-19 [facility] (RBC) [address] ([address]) Comment: Performed By: #### CBC, B12, SERFOL, PTHI, BMP ####[address], [place] [phone]#### B1VIT ####[facility] [address] [place], [place] [phone] Platelet mean volume Auto 11.5 9.0-12.7 fL Normal 04-03 [facility] Entitic volume (Bld) [address] (67913) Comment: Performed By: #### CBC, B12, SERFOL, PTHI, BMP ####[address], [place] [phone]#### B1VIT ####[facility] [address] [place], [place] [phone] Platelets Auto #/vol 270 150-400 k/uL Normal 8 [facility] (Bld) [address] ([address]) Comment: Performed By: #### CBC, B12, SERFOL, PTHI, BMP ####[address] [phone]#### B1VIT ####[facility] [address] [place], [place] [phone] RBC Auto #/vol (Bld) 4.68 3.90-5.20 m/uL Normal 8 [facility] (73693) Comment: Performed By: #### CBC, B12, SERFOL, PTHI, BMP ####[address] [place], [place] [phone]#### B1VIT ####[facility] [address] [place], [place] [phone] WBC Auto #/vol (Bld) 8.66 3.70-11.00 k/uL Normal 04-19-20 18 [facility] (96221) Comment: Performed By: #### CBC, B12, SERFOL, PTHI, BMP ####[facility] [address], [place] [phone]#### B1VIT ####[facility] [address] [place], [place] [phone] basic metabolic panl on 2018-04-19 Anion gap 3 molar conc 19 9-18 mmol/L High 018 [facility] (96836) Comment: Performed By: #### CBC, BMP, PTHI, B12, SERFOL ####[place] [address], [place] [phone]#### B1VIT ####[facility] [address] [place], [place] [phone] Calcium mass conc 10.0 8.5-10.2 mg/dL Normal 04-19-2018 [facility] (80108) Comment: Performed By: #### CBC, BMP, PTHI, B12, SERFOL ####[place] [address] [place], [place] [phone]#### B1VIT ####[facility] [address] [place], [place] [phone] Chloride molar conc 97 97-105 mmol/L Normal 04-19-2018 [facility] (61568) Comment: Performed By: #### CBC, BMP, PTHI, B12, SERFOL ####[place] [address] [place], [place] [phone]#### B1VIT ####[facility] [address] [place], [place] [phone] CO2 molar conc 23 22-30 mmol/L Normal 04-19-2018 [facility] (72011) Comment: Performed By: #### CBC, BMP, PTHI, B12, SERFOL ####[place] [address], [place] [phone]#### B1VIT ####[facility] [address] [place], [place] [phone] Creatinine mass conc 0.95 0.58-0.96 mg/dL Normal 8 [facility] (27656) Comment: Performed By: #### CBC, BMP, PTHI, B12, SERFOL ####[facility] [address] [place], [place] [phone]#### B1VIT ####[facility] [address] [place], [place] [phone] eGFR- Amer. >60 Normal 04-19-2018 [facility] (37421) Comment: Performed By: #### CBC, BMP, PTHI, B12, SERFOL ####[facility] [address] [place], [place] [phone]#### B1VIT ####[facility] [address] [place], [place] [phone] GFR/1.73 sq M predicted >60 mL/min/{1.73_m2} Normal 04-19-2018 [facility] among non-blacks MDRD [address] ([address]) vol rate/area (S/P/Bld) Comment: Result Comment: eGFR (Estima maria a GFR) Units of measure: mL/min/1.73 meters squaredeGFR is derived from the reexpressed MDRD Study equation using the following parameters: serum creatinine, age, gender and race. The creatinine assay has been calibrated to be traceable to IDMS.An eGFR <60 mL/min/1.73m2 for >3 months is consistent with chronic kidney disease. Refer to KDOQI guidelines for clinical inte rpretation.In patients with unstable renal function, e.g. those with ac [place] kidney injury, the eGFR may not accurately reflect actual GFR. Performed By: #### CBC, BMP, PTHI, B12, SERFOL ####[facility] [address] [place], [place] [phone]#### B1VIT ####[facility] [address] [place], [place] [phone] Glucose mass conc 95 74-99 mg/dL Normal 04-19-2018 [facility] (49879) Comment: Result Comment: The [place] Diabetes Association (ADA) provides guidance for cutoff values for fastin g glucose and random glucose. The ADA defines fasting as no caloric intake for at least 8 hours. Fasting plasma glucose results between 100 to 125 m g/dL indicate increased risk for diabetes (prediabetes).Fasting plasma glucose results greater than or equal to 126 mg/dL meet the criteria for diagnosis of diabetes. In the absence of unequivocal hyperglycemia, r esults should be confirmed by repeat testing. In a patient with classic sympt oms of hyperglycemia or hyperglycemic crisis, random plasma glucose result s greater than or equal to 200 mg/dL meet the criteria for diagnosis of di abetes.Reference: Standards of Medical Care in Diabetes 2016, [place] Diab etes Association. Diabetes Care. 2016.39(Suppl 1). Performed By: #### CBC, BMP, PTHI, B12, SERFOL ####[facility] [address], [place] [phone]#### B1VIT ####[facility] [address] [place], [place] [phone] Potassium molar conc 3.4 3.7-5.1 mmol/L Low 8 [facility] (21603) Comment: Performed By: #### CBC, BMP, PTHI, B12, SERFOL ####[facility] [address], [place] [phone]#### B1VIT ####[facility] [address] [place], [place] [phone] Sodium molar conc 139 136-144 mmol/L Normal 04-19-2018 [facility] (48016) Comment: Performed By: #### CBC, BMP, PTHI, B12, SERFOL ####[facility] [address] [place], [place] [phone]#### B1VIT ####[facility] [address] [place], [place] [phone] Urea nitrogen mass conc 11 7-21 mg/dL Normal 2017 [facility] (88933) Comment: Performed By: #### CBC, BMP, PTHI, B12, SERFOL ####[facility] [address] [place], [place] [phone]#### B1VIT ####[facility] [address] [place], [place] [phone] obsolete on 2018-03 OBSOLETE Refill Normal 03-19-2018 Kathie (AGGENS4) ---------RETA RAMOS ([id number]) 1965 F CHTDate Time Provider Department03/19/18 LILLY ESTEVEZ (MACHINE STRAP BUCKLER) AGGENS4 Medical During your visit today, we recorded the following information about you:Allergies As of Date: Pascale nter 03/19/2018 Noted Allergy Lindsey ctionBEES 03/15/2013 7 - SwellingDate Reviewed: 02/19/2018Reviewed by: (0000 0) Liberty Wynn - Fully Assesskarli Jones for Visit: Refill Request [94]Prescriptions as of 03/19/2018 Sig: URSODIOL 300 MG CAPSULE Take 1 capsule by mouth twice* PANTOPRAZOLE 20 MG TABLET,DEL* Take 20 mg by mouth once maged* TEENA INE HCL (VITAMIN B1) 100* Take 1 tablet by mouth once d* HYDROCHLOROTHIAZIDE 25 MG TA B* Take 25 mg by mouth once maged* CLONIDINE HCL 0.2 MG TABLET Take 0.2 mg by mouth twice da* MULTIV ITAMIN TABLET Take 1 tablet by mouth once d*Problem List As Of Date 03/19/2018 Noted Resolved Ar thritis of knee [M17.10] INVALID FOR* Meniscus tear [S83.209A] 06/06/2013 Tear of medial ca rtilage or meniscus of knee, c*INVALID FOR*06/06/2013 Morbid obesity (HCC) [E66.01] INVALID FOR* More... Obesity, Class III, BMI >= 40 [E66.01] INVALID FOR* Class 3 obesity with body mass index (BMI) of 4*INVALID FOR* Status:Closed by JOHANNA ODELL MA on 03/19/18 progress on 2018-01 Protein mass HNO ID: [id number]: Liberty marks 02-19-2018 [facility] DaigleService: (none)Author Type: Medical Center PhysicianType: Progress ([id number]) NotesFiled: 02/19/2018 3:23 PMNote Text:BARIATRIC SURGERY CLINICFOLLOW UP NOTEDate: February 19, 2018 Time: 2:53 PMName: Reta Tuttle SurgeryDate of Surgery: 01/05/2018Surgical Procedure: Laparoscopic sleeve gastrectomyPre-surgical weight: 132.5 kg (292 lb)Other Bariatric SurgeriesNoneVisit:6 weeksToday's Visit:Wt 120.7 kg (266 lb 3.2 oz) BMI 43.61 kg/m2BMI 43.61 kg/(m2)Last Visit:Wt: 126.8 kg (279 lb 9.6 oz) BMI: 45.80 kg/(m2)Total weight loss:11.7 kg (25 lb 12.8 oz)%EWL: 19%COMPLICATIONS SINCE LAST VISIT?:NONEDIET INTAKE:tolerates Phase V dietDAILY SUPPLEMENTS:Calcium: Calcium Citrate w/ vitamin D (1200 - 1500mg)Multivitamin AND Minerals: 1 per dayIron Supplement: included in multi-vitaminVitamin A: included in multi-vitaminVitamin B12: 500 mcgB Complex: included in multi-vitaminBiotin: NoVitamin C: included in multi-vitaminVitamin D3: included in multi-vitaminVitamin E: included in multi-vitaminZinc: included in multi-vitaminOther: N/AEXERCISE: total minutes per week: Riding her bike or doing gym exercises in herbasement dailyCurrent Outpatient Prescriptions:ursodiol (ACTIGALL) 300 mg capsule Take 1 capsule by mouth twice daily.START AFTER SURGERY.pantoprazole DR (PROTONIX) 20 mg tablet Take 20 mg by mouth once daily.thiamine (VITAMIN B-1) 100 mg tablet Take 1 tablet by mouth once daily.cloNIDine HCl (CATAPRES) 0.2 mg tablet Take 0.2 mg by mouth twice daily.multivitamin tablet Take 1 tablet by mouth once daily.hydroCHLOROthiazide (HYDRODIURIL, ESIDRIX) 25 mg tablet Take 25 mg bymouth once daily.No current facility-administered medications for this visit.ACTIVE PROBLEM LISTArthritis of KneeMorbid Obesity ([facility])Obesity, Class III, BMI >= 40Class 3 Obesity With Body Mass Index (Bmi) of 40.0 to 44.9 in Adult ([facility])REVIEW OF SYSTEMS:CONSTITUTIONAL: Patient denies fevers, chills, sweatsCARDIOVASCULAR: Patient denies chest pains, palpitationsRESPIRATORY: No dyspnea on exertion, no wheezing or cough.GI: No nausea, vomiting, diarrhea, constipation, abdominal pain,hematochezia or melena.: No urinary hesitancy or dribbling. No nocturia or urinary frequency.No abnormal urethral discharge.PHYSICAL EXAM:PHYSICAL EXAMINATION:GENERAL: No apparent distress. Pt is alert and oriented x3. No jaundice orscleral icterusVITAL SIGNS: HR, BP, Temp; NormalHEART: Regular rate and rhythmABDOMEN: Soft, nontender, and nondistended. Positive bowel sounds. Nohepatosplenomegaly was noted. Citizens healing nicely. No synovitis orabscess. No evidence of port site hernia.A/P:- Normal post-OP course- DISPOSITION: Return for 3 month postop visit- EDUCATION: Pt encouraged to continue with positive lifestyle changes anddaily/vitamin intake- REFERRALS: N/A Liberty Wynn MDAdvanced Laparoscopic and Bariatric Surgery Protein mass HNO ID: [id number]: Cinthia mckeon 02-19-2018 Kathie kang [facility]Rd[facility] (none)Author Type: Registered ([id number]) DietitianType: Progress NotesFiled: 02/19/2018 3:23 PMNote Text:6 Week Post-OpTravi McconnellySG 01/05/1826# lost since kikusau39% EWL based on IBW w/ BMI 25Tolerating by mouth well: YesNausea: NoVomiting: NoConstipation: NoDiarrhea:NoWeak/Shaky/Light-head ed: NoEstimated Nutrient Intake:Average of 3 days' food records: Yes24 hour recall/Usual intake: Yes66 protein (g)69 liquid intake (oz)Diet advancement/meal pattern reviewed: YesFood/beverage intolerance: none reportedExercise: formal exercise daily for 30 minutes (bike riding or on totalgym (3-4), walking) -- breaking a sweatVitamins:MVI: 2, complete, with fpxhkujzlP34: 1000mcgCalcium Citrate: 1200mg--1 with lunch and 1 with dinnerIron: N/AWritten information provided and reviewed: journalsupport group scheduleReinforced behaviors:attend support group meetings2 cups milk/soymilk dailyPt brought food journal to appointment today. Upon review of food journal, pt is meeting daily protein and fluid goals.Per 6 week diet instructions, added additional glass of milk in theevening to meet 64g protein recommendation. Encouraged to ensure exerciseis at a peppy pace to further enhance wt loss. Encouraged attendance atsupport groups.Goals: Goals - advance to 6 week diet instructions--2oz (14g) protein 1oz fiber w/ meals + 3 cups of milk between + 2 healthy fat servings - consider attending support group - continue with vitamin schedule - formal exercise daily for 30 minutes (chair exercises, walking, biking)--pepshannan Sellers RD, LD cnov on 2018-02-19 CNOV Office Visit Normal 02-19-2018 Kathie (AGGENS4) ---------RETA RAMOS ([id number]) 1965 [address] Mota HTDate Time Provider Department02/19/18 2:00 PM KINGSLEY, LIBERTY AGGENS4 During Medical your visit today, we recorde d the following information about you: Pulse Blood pressure Weight Height Cente r 75/minute 162/82 120.7 kg [address]. [address], LD 02/19/2018 3:23 PM Signed6 Week Post-OpTonya (0 0000) J FrySG 01/05/1826# lost since pkmbkza36% EWL based on IBW w/ BMI 25Tolerating by mouth well: YesNausea: NoVomiting: NoConstipation: NoDiarrhea:NoWeak/Shaky/Light-headed: NoEstimated Nutrient Intake:Average of 3 days' food records: Yes 24 hour recall/Usual intake: Yes66 protein (g)69 liquid intake (oz)Diet advancement/meal pattern rev iewed: YesFood/beverage intolerance: none reportedExercise: formal exercise daily for 30 minutes (bike r iding or on total gym(3-4), walking) -- breaking a sweatVitamins:MVI: 2, complete, with zlokvspxgP31: 1000mcgCalcium Citrate: 1200mg--1 with lunch and 1 with dinnerIron: N/AWritten information provi ded and reviewed: journalsupport group scheduleReinforced behaviors:attend support group meetings2 cups milk/soymilk dailyPt brought food journal to appointment today. Upon review of food journal, pt i s meeting daily protein and fluid goals. Per6 week diet instructions, added additional glass of milk in the evening to yahv05b protein recommendation. Encouraged to ensure exercise is at a peppy pace to further enhance wt loss. Encouraged attendance at support groups.Goals: Goals - advance to 6 week di et instructions--2oz (14g) protein 1oz fiber w/ meals + 3 cups of milk between + 2 healthy fat serv ings - consider attending support group - continue with vitamin schedule - formal exercise daily for 30 minutes (chair exercises, walking, biking)--peppy paceCinthia Sellers RD, LDLiberty Wynn MD 2017 2:52 PM SignedPlease continue to focus on good diet and exercise choices, you can do this!! susana Wynn MD 02/19/2018 3:23 PM SignedBARIATRIC SURGERY CLINICFOLLOW UP NOTEDate: February 19, 2018 Time : 2:53 PMName: Reta Aparicio yIestelarobert SurgeryDate of Surgery: 01/05/2018Surgical Procedure: Laparoscopic slee ve gastrectomyPre-surgical weight: 132.5 kg (292 lb)Other Bariatric SurgeriesNoneVisit:6 weeksTo day's Visit:Wt 120.7 kg (266 lb 3.2 oz) BMI 43.61 kg/m2BMI 43.61 kg/(m2)Last Visit:Wt: 126.8 kg (279 lb 9.6 oz) BMI: 45.80 kg/(m2)Total weight loss:11.7 kg (25 lb 12.8 oz)%EWL: 19%COMPLICATIONS SI NCE LAST VISIT?:NONEDIET INTAKE:tolerates Phase V dietDAILY SUPPLEMENTS:Calcium: Calcium Citrate w/ vitamin D (1200 - 1500mg)Multivitamin AND Minerals: 1 per dayIron Supplement: included in multi-vitaminVitamin A: included in multi- vitaminVitamin B12: 500 mcgB Complex: included in multi-v itaminBiotin: NoVitamin C: included in multi- vitaminVitamin D3: included in multi-vitaminVitamin E: incl uded in multi-vitaminZinc: included in multi- vitaminOther: N/AEXERCISE: total minutes per week: Ridi ng her bike or doing gym exercises in her basementdailyCurrent Outpatient Prescriptions:ursodiol (ACTI GALL) 300 mg capsule Take 1 capsule by mouth twice daily. STARTAFTER SURGERY.pantoprazole DR (PRO TONIX) 20 mg tablet Take 20 mg by mouth once daily.thiamine (VITAMIN B-1) 100 mg tablet Take 1 tablet by mouth once daily.cloNIDine HCl (CATAPRES) 0.2 mg tablet Take 0.2 mg by mouth twice daily.multivitam in tablet Take 1 tablet by mouth once daily.hydroCHLOROthiazide (HYDRODIURIL, ESIDRIX) 25 mg tablet Take 25 mg by mouthonce daily.No current facility-administered medications for this visit.A CTIVE PROBLEM LISTArthritis of KneeMorbid Obesity (Hcc)Obesity, Class III, BMI >= 40Class 3 Obesity Wit h Body Mass Index (Bmi) of 40.0 to 44.9 in Adult ([facility])REVIEW OF SYSTEMS:CONSTITUTIONAL: Jenn ent denies fevers, chills, sweatsCARDIOVASCULAR: Patient denies chest pains, palpitationsRESPIRATO RY: No dyspnea on exertion, no wheezing or cough.GI: No nausea, vomiting, diarrhea, constipation, abdo silvio pain, hematocheziaor melena.: No urinary hesitancy or dribbling. No nocturia or urinary frequenc y. Noabnormal urethral discharge.PHYSICAL EXAM:PHYSICAL EXAMINATION:GENERAL: No appa rent distress. Pt is alert and oriented x3. No jaundice orscleral icterusVITAL SIGNS: HR, BP, Temp; NormalHEART: Regular rate and rhythmABDOMEN: Soft, nontender, and nondistended. Positive bowel sounds. Nohepatosplenomegaly was noted. Citizens healing nicely. 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] Other V isit Diagnosis:Vitamin deficiency [E56.9]Order(s):BASIC METABOLIC PNL [SQBMP] Order #: [id number] FUTURE CBC [SQCBC] Order #: [id number] FUTURE FOLATE SERUM [SQSERFOL] Order #: [id number] FUTURE PTH INT ACT BLD [SQPTHI] Order #: [id number] FUTURE VITAMIN B12 BLOOD [SQB12] Order #: [id number] FUTURE VITAMIN B1/THIAMINE, WHOLE BLD [NGT0ICG] Order #: [id number] FUTUREPrescriptions as of 02/19/2018 Sig: URSODI OL 300 MG CAPSULE Take 1 capsule by mouth twice* PANTOPRAZOLE 20 MG TABLET,DEL* Take 20 mg by mo uth once maged* THIAMINE HCL (VITAMIN B1) 100* Take 1 tablet by mouth once d* CLONIDINE HCL 0.2 MG TABL ET Take 0.2 mg by mouth twice da* MULTIVITAMIN TABLET Take 1 tablet by mouth once d* HYDROCHLOROTHI AZIDE 25 MG TAB* Take 25 mg by mouth once maged*Problem List As Of Date 02/19/2018 Noted Resolved Ar thritis of knee [M17.10] INVALID FOR* Meniscus tear [S83.209A] 06/06/2013 Tear of medial cartilage or meniscus of knee, c*INVALID FOR*06/06/2013 Morbid obesity (HCC) [E66.01] INVALID FOR* More... Obesity , Class III, BMI >= 40 [E66.01] INVALID FOR* Class 3 obesity with body mass index (BMI) of 4*INVALID FOR * Other instructions from your clinician: Please continue to focus on good diet and exercise choices, y ou can do this!!Disposition: Return in about 2 months (around 04/22/2018) for [place].Follow-up and Disposition History Recorded --------Questionnaire: AG GEN SURG BARIATRIC POST-O P VISITSWEIGHT (pounds) -> 266.2Encounter Number: [id number] Status:Closed by LIBERTY WYNN MD on 02/19/18 cnco on 2018-02-19 CNCO Letter TextThe Choice You Can Normal 02-19-2018 [facility] Vivian Harrison APRN.[facility] ([id number]) [facility] [address] [address], 4th [place], [place] [address]U: F: This document certifies that Reta Ramos is at least 6 weeks post-op andmedically ready to exercise.This certificate is a complimentary 4 week pass to [facility] Center.[address] [place], [place] [address] ([address] [facility] [address] [place])[address] [place], [place] [address] (at [address] AND [address] in [place])[address] [place], [place] [address] ([place] exit of [address])Use it in good health!Expires vitamin b12 on 2017 Cobalamin (Vitamin B12) 090 400-5034 pg/mL Normal 2017 [facility] ([address]) Comment: Performed By: #### CBC, BMP, PTHI, B12, SERFOL ####[facility], [place] [phone]#### B1VIT ####[facility] [address] [place], [place] [phone] vitamin b1,whole bld on 2018-02-10 Vitamin B1 Whole Bld 170 70-180 nmol/L Normal 8 [facility] ([address]) Comment: Result Comment: (NOTE)INTERP RETIVE INFORMATION: Vitamin B1, Whole BloodThis assay measures the concentra tion of thiamine diphosphate(TDP), the primary active form of vitamin B1. A pproximately 90percent of vitamin B1 present in whole blood is TDP. Thiamine andthiamine monophosphate, which comprise the remaining 10 percent,are not measured.Test developed and characteristics determined by [employer] [facility]. See Compliance Statement B: VHT/CSPerformed by [facility],[address] [place] [address] igy.VHT, Westley Moe MD, Lab. Director Performed By: #### CBC, BMP, PTHI, B12, SERFOL ####[facility] [address], [place] [phone]#### B1VIT ####[facility] [address] [place], [place] [phone] pth, intact on 2017 PTH, Intact 31 15-65 pg/mL Normal 02-10-2018 [facility] [place] ([address]) Comment: Performed By: #### CBC, BMP, PTHI, B12, SERFOL ####[facility] [address] [place], [place] [phone]#### B1VIT ####[facility] [address] [place], [place] [phone] folate, serum on 17-02-11 Folate, Serum >20.0 >4.7 Normal 02-10-2018 [facility] ([address]) Comment: Result Comment: A result of > 20 ng/mL is not necessarilyindicative of a pathologic or treatablecondi tion: it reflects a limitation of thetest methodology.Assay reference range: 4.8 to 24.2 ng/mL.Suitable for detection of folate deficiency.Referen ce:Folate III (Folate III) [package insert V 1.0English].[facility], [place], [place]: June2015. Performed By: #### CBC, BMP, PTHI, B12, SERFOL ####[facility] [place], [place] [phone]#### B1VIT ####[facility] [address] [place], [place] [phone] cbc on 2018-02-10 Absolute nRBC <0.01 <0.01 Normal 02-10-2018 [facility] ([address]) Comment: Performed By: #### CBC, BMP, PTHI, B12, SERFOL ####[facility] [address] [place], [place] [phone]#### B1VIT ####[facility] [address]zthf[address] [place], [place] [phone] Erythrocyte distribution 17.5 11.5-15.0 % High 02-10 [facility] width Auto Ratio (RBC) [address] ([address]) Comment: Performed By: #### CBC, BMP, PTHI, B12, SERFOL ####[facility], [place] [phone]#### B1VIT ####[facility] Qem[address]kbvog[address] [place], [place] [phone] Hematocrit Auto Volume 40.9 36.0-46.0 % Normal 018 [facility] ([facility] ([address]) Comment: Performed By: #### CBC, BMP, PTHI, B12, SERFOL ####[address] [phone]#### B1VIT ####[facility] [address]jq[address] [place], [place] [phone] Hemoglobin mass conc 12.6 11.5-15.5 g/dL Normal 8 [facility] ([facility]) [address] ([address]) Comment: Performed By: #### CBC, BMP, PTHI, B12, SERFOL ####[address] [phone]#### B1VIT ####[facility] Gilnyxctkbib[address] [place], [place] [phone] MCH Auto Entitic mass 27.2 26.0-34.0 pG Normal 02-11-20 18 [facility] (RBC) [address] ([address]) Comment: Performed By: #### CBC, BMP, PTHI, B12, SERFOL ####[address] [phone]#### B1VIT ####[facility] Eiiroospiqrm[address] [place], [place] [phone] MCHC Auto mass conc 30.8 30.5-36.0 g/dL Normal 02-10-2018 [facility] (RBC) [address] ([address]) Comment: Performed By: #### CBC, BMP, PTHI, B12, SERFOL ####[address] [phone]#### B1VIT ####[facility] [address]keq[address]q9[address] [place], [place] [phone] MCV Auto Entitic volume 88.3 80.0-100.0 fL Normal 02-10 [facility] ([facility]) [address] ([address]) Comment: Performed By: #### CBC, BMP, PTHI, B12, SERFOL ####[address] [phone]#### B1VIT ####[facility] Dimxobicbmvv786 [place], [place] [phone] Platelet mean volume Auto 13.0 9.0-12.7 fL High 01-31 [facility] Entitic volume (Bld) ([address]206) Comment: Performed By: #### CBC, BMP, PTHI, B12, SERFOL ####[address] [phone]#### B1VIT ####[facility] [address]isfmb[address] [place], [place] [phone] Platelets Auto #/vol 253 150-400 k/uL Normal 8 [facility] (Bld) [address] ([address]) Comment: Performed By: #### CBC, BMP, PTHI, B12, SERFOL ####[address] [phone]#### B1VIT ####[facility] [address]zszsfkziqhu[address] [place], [place] [phone] RBC Auto #/vol (Bld) 4.63 3.90-5.20 m/uL Normal 8 [facility] ([address]889) Comment: Performed By: #### CBC, BMP, PTHI, B12, SERFOL ####[address] [phone]#### B1VIT ####[facility] Xggajtzonlgl9[address] [place], [place] [phone] WBC Auto #/vol (Bld) 6.75 3.70-11.00 k/uL Normal 02-11-20 18 [facility] (79[address]) Comment: Performed By: #### CBC, BMP, PTHI, B12, SERFOL ####[address] [phone]#### B1VIT ####[facility] Mbfiyfaaedri319 [place], [place] [phone] basic metabolic panl on 2018-02-10 Anion gap 3 molar conc 16 9-18 mmol/L Normal 018 [facility] ([address]46) Comment: Performed By: #### CBC, BMP, PTHI, B12, SERFOL ####[address] [phone]#### B1VIT ####[facility] Cpeplwjckoum197 [place], [place] [phone] Calcium mass conc 10.1 8.5-10.2 mg/dL Normal 02-10-2018 [facility] ([address]) Comment: Performed By: #### CBC, BMP, PTHI, B12, SERFOL ####[address] [phone]#### B1VIT ####[facility] Vsdwxtmoowub687 [place], [place] [phone] Chloride molar conc 102 97-105 mmol/L Normal 02-10-2018 [facility] (67684) Comment: Performed By: #### CBC, BMP, PTHI, B12, SERFOL ####[address] [phone]#### B1VIT ####[facility] Bcoznqxclknj[address] [place], [place] [phone] CO2 molar conc 23 22-30 mmol/L Normal 02-10-2018 [facility] ([address]) Comment: Performed By: #### CBC, BMP, PTHI, B12, SERFOL ####[facility] [address] [place], [place] [phone]#### B1VIT ####[facility] Cqtbzntzpbhi[address] [place], [place] [phone] Creatinine mass conc 1.00 0.58-0.96 mg/dL High 8 [facility] ([address]) Comment: Performed By: #### CBC, BMP, PTHI, B12, SERFOL ####[facility] [address] [place], [place] [phone]#### B1VIT ####[facility] [address]msvkuz5[address] [place], [place] [phone] eGFR- Amer. >60 Normal 02-10-2018 [facility] ([address]47) Comment: Performed By: #### CBC, BMP, PTHI, B12, SERFOL ####[facility] [address] [place], [place] [phone]#### B1VIT ####[facility] Hinbdveiigyh[address] [place], [place] [phone] GFR/1.73 sq M predicted among 58 . Normal 02-10-2018 [facility] non-blacks MDRD vol rate/area (31924) (S/P/Bld) Comment: Result Comment: eGFR (Estima maria a GFR) Units of measure: mL/min/1.73 meters squaredeGFR is derived from the reexpressed MDRD Study equation using the following parameters: serum creatinine, age, gender and race. The creatinine assay has been calibrated to be traceable to IDMS.An eGFR <60 mL/min/1.73m2 for >3 months is consistent with chronic kidney disease. Refer to KDOQI guidelines for clinical inte rpretation.In patients with unstable renal function, e.g. those with ac [place] kidney injury, the eGFR may not accurately reflect actual GFR. Performed By: #### CBC, BMP, PTHI, B12, SERFOL ####[facility] [address] [place], [place] [phone]#### B1VIT ####[facility] [address]wzorpzahc[address] [place], [place] [phone] Glucose mass conc 82 74-99 mg/dL Normal 02-10-2018 [facility] ([address]54) Comment: Result Comment: The [place] Diabetes Association (ADA) provides guidance for cutoff values for fastin g glucose and random glucose. The ADA defines fasting as no caloric intake for at least 8 hours. Fasting plasma glucose results between 100 to 125 m g/dL indicate increased risk for diabetes (prediabetes).Fasting plasma glucose results greater than or equal to 126 mg/dL meet the criteria for diagnosis of diabetes. In the absence of unequivocal hyperglycemia, r esults should be confirmed by repeat testing. In a patient with classic sympt oms of hyperglycemia or hyperglycemic crisis, random plasma glucose result s greater than or equal to 200 mg/dL meet the criteria for diagnosis of di abetes.Reference: Standards of Medical Care in Diabetes 2016, [place] Diab etes Association. Diabetes Care. 2016.39(Suppl 1). Performed By: #### CBC, BMP, PTHI, B12, SERFOL ####[facility] [address] [place], [place] [phone]#### B1VIT ####[facility] Nsrxcufgsdar[address] [place], [place] [phone] Potassium molar conc 4.2 3.7-5.1 mmol/L Normal 8 [facility] (335[address]) Comment: Performed By: #### CBC, BMP, PTHI, B12, SERFOL ####[facility] [address] [place], [place] [phone]#### B1VIT ####[facility] Jiqkg[address]rsqsno[address] [place], [place] [phone] Sodium molar conc 141 136-144 mmol/L Normal 02-10-2018 [facility] ([address]217) Comment: Performed By: #### CBC, BMP, PTHI, B12, SERFOL ####[facility] [address] [place], [place] [phone]#### B1VIT ####[facility] Zinliuiubede9[address] [place], [place] [phone] Urea nitrogen mass conc 14 7-21 mg/dL Normal 2017 [facility] ([address]) Comment: Performed By: #### CBC, BMP, PTHI, B12, SERFOL ####[facility] [address] [place], [place] [phone]#### B1VIT ####[facility] [address]pkqtqslltzi9[address] [place], [place] [phone] progress on 2018-01 Protein mass HNO ID: [id number]: Lilly Normal 01-13-2018 [facility] ([facility] Paramed[facility]) LaktashService: [facility] (none)Author Type: Nurse ([id number]) PractitionerType: Progress NotesFiled: 01/15/2018 12:55 PMNote Text:Name: Reta Aparicio OmarN: [id number] SurgeryDate of Surgery: 01/05/2018Surgeon: DaigleSurgical Procedure: Sleeve gastrectomyPre-surgical weight: 292 lbOther Bariatric SurgeriesNoneVisit:7 daysToday's Visit: Wt 126.8 kg (279 lb 9.6 oz) BMI 45.8 kg/m2 BMI 45.80kg/(m2)Last Visit: Wt: 131.1 kg (289 lb) BMI: 48.09 kg/(m2)Total weight loss: 12Ideal weight: 69.2 kg (152 lb 9.9 oz)Excess weight: 139% of excess body weight lost: -126.826 kg (-279 lb 9.6 oz)COMPLICATIONS SINCE LAST VISIT?: NONEComplaining of mild incisional Vs gas pain located to extraction siteDIET INTAKE: tolerates Phase V dietDAILY SUPPLEMENTS:Calcium: Calcium Citrate w/ vitamin D (1200 - 1500mg)Multivitamin AND Minerals: 2 per dayIron Supplement: 27 - 28 mgVitamin B12: 1000 mcgBiotin: NoVitamin C: included in multi-vitaminVitamin D3: 2000 IUOther: Actigall 300 mg twice dailyThiamine 100 mg for a mild thiamine deficiency preoperatively thatreturned to baselineEXERCISE: No exerciseAre you attending any Support Groups? No attendanceCurrent Outpatient Prescriptions:traMADol (ULTRAM) 50 mg tablet Take 1-2 tablets by mouth every 8 hours asneeded for Pain (post operative) for up to 7 days.ursodiol (ACTIGALL) 300 mg capsule Take 1 capsule by mouth twice daily.START AFTER SURGERY.pantoprazole DR (PROTONIX) 20 mg tablet Take 20 mg by mouth once daily.thiamine (VITAMIN B-1) 100 mg tablet Take 1 tablet by mouth once daily.hydroCHLOROthiazide (HYDRODIURIL, ESIDRIX) 25 mg tablet Take 25 mg bymouth once daily.cloNIDine HCl (CATAPRES) 0.2 mg tablet Take 0.2 mg by mouth twice daily.multivitamin tablet Take 1 tablet by mouth once daily.No current facility-administered medications for this visit.ACTIVE PROBLEM LISTArthritis of KneeMorbid Obesity (Hcc)Obesity, Class III, BMI >= 40Class 3 Obesity With Body Mass Index (Bmi) of 40.0 to 44.9 in Adult ([facility])REVIEW OF SYSTEMS: Denies nausea, vomiting, dumping syndrome, abdominalpain, constipation, diarrhea, melena, hematochezia and paresthesias, gaitabnormality, fatigue, weakness, lower extremity edemaPHYSICAL EXAM:Deferred, no abdominal issues, all wound healed nicely. 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 Protein mass HNO ID: [id number]: Cinthia Thakur linda 01-13-2018 Kathie kang (R[address]) Venturaervice: [facility] (none)Author Type: Registered ([id number]) DietitianType: Progress NotesFiled: 01/15/2018 12:55 PMNote Text:2 Week Post-OpTravi Aparicio FrySurgery Date: 01/06/1812# lost since surgeryCompliance with Full Liquid Diet: YesTolerating by mouth well: YesNausea: NoVomiting: NoConstipation: NoDiarrhea:NoDrinking Slowly: YesCompleted food record: NoJournal brought to appointment: No60 average protein intake (g)64 average liquid intake (oz)Food/beverage intolerance: none reportedExercise: generalized activity, walkingWritten information provided and reviewed: soft dietjournalvitamin scheduleReinforced Behaviors: increase exercise: per goalsvitamin schedulesupport group scheduledPt did not bring food journal to appointment--reports adhering to mealguidelines provided while inpatient. Pt will be using protein powder (30g protein/scoop) for soft dietinstructions, further guidance with use of this supplement provided below.Is adhering to vitamin schedule--2 complete MVI w/ breakfast, 1000mcg B12,1200mg Calcium Citrate split between lunch and dinner. Additional ironsupplement N/A d/t pt denying regular menstrual cycle. Encouragedattendance at support groups.Goals: Goals - advance to soft diet instructions--1oz (7g) protein w/ meals + 2 cups of milk between, each mixed with 1/2 scoop protein supplement - consider attending support group - continue with vitamin schedule - formal exercise 5x/week for 30 minutes (chair exercises, walking) - return to keeping a daily food journal--meet 64g protein and 64oz fluidsCinthia Sellers RD, LD cnov on 2018-01-13 CNOV Office Visit Normal 01-13-2018 Kathie (AGGENS4) ---------RETA RAMOS ([id number]) 1965 F CHTDate Time Provider Department01/13/18 3:30 PM LILLY ESTEVEZ (MACH[employer] BUCKLER) Medical AGGENS4 During your visit to day, we recorded the following information about you: Pulse Blood Center pressure Weight Height 93/mi nute 148/96 126.8 [address], LD 01/15/2018 12:55 ([id number]) PM Signed2 Week Post-OpTravi Aparicio FrySurgery Date: 01/06/1812# lost since surgeryCompliance with Full Liquid Diet: YesTolerating b y mouth well: YesNausea: NoVomiting: NoConstipation: NoDiarrhea:NoDrinking Slowly : YesCompleted food record: NoJournal brought to appointment: No60 average protein intake (g)64 average liquid intake (oz)Food/beverage intolerance: none reportedExercise: generalize d activity, walkingWritten information provided and reviewed: soft dietjournalvitamin sap payroll consultant einforced Behaviors: increase exercise: per goalsvitamin schedulesupport group schedu ledPt did not bring food journal to appointment--reports adhering to mealguidelines provided edward andino inpatient. Pt will be using protein powder (30g protein/scoop) for soft dietinstructions, critical access hospital guidance with use of this supplement provided below. Isadhering to vitamin schedule--2 complete MVI w/ breakfast, 1000mcg B12, 1200mgCalcium Citrate split between lunch and dinner. Additional iron supplement N/Ad/t pt denying regular menstrual cycle. Encouraged attendance at supportgroups. Goals: Goals - advance to soft diet instructions--1oz (7g) protein w/ meals + 2 cups of milk betwe en, each mixed with 1/2 scoop protein supplement - consider attending support group - continue wit h vitamin schedule - formal exercise 5x/week for 30 minutes (chair exercises, walking) - return to keeping a daily food journal--meet 64g protein and 64oz fluidsCinthia Sellers RD, Pilar Estevez APRN.CNP 01/13/2018 4:09 PM SignedPlease wait another 3 weeks before lifting over 10 pounds and another 2 weeksbefore soaking in a tub/swimming in a pool. Otherwise, you are permitted toparticipate in cardiovascular exercise.Lilly Estevez APRN.SONIDO 01/15/2018 12:55 PM SignedNam e: Reta Alessandra BrodyRN: [id number] SurgeryDate of Surgery: 01/05/2018Surgeon: Kendall dann Procedure: Sleeve gastrectomyPre-surgical weight: 292 lbOther Bariatric SurgeriesNoneVisit :7 daysToday's Visit: Wt 126.8 kg (279 lb 9.6 oz) BMI 45.8 kg/m2 BMI 45.80 kg/(m2)Last Visit: Wt: 131.1 kg (289 lb) BMI: 48.09 kg/(m2)Total weight loss: 12Ideal weight: 69.2 kg (152 lb 9.9 oz)Exces s weight: 139% of excess body weight lost: -126.826 kg (-279 lb 9.6 oz)COMPLICATIONS SINCE LAST VISIT?: NONEComplaining of mild incisional Vs gas pain located to extraction siteDIET INTAKE: tolerates Phase V dietDAILY SUPPLEMENTS:Calcium: Calcium Citrate w/ vitamin D (1200 - 1500mg)Mul tivitamin AND Minerals: 2 per dayIron Supplement: 27 - 28 mgVitamin B12: 1000 mcgBiotin: NoVitam in C: included in multi-vitaminVitamin D3: 2000 IUOther: Actigall 300 mg twice dailyThiamine 100 m g for a mild thiamine deficiency preoperatively that returned tobaselineEXERCISE: No exerc iseAre you attending any Support Groups? No attendanceCurrent Outpatient Prescriptions:tra MADol (ULTRAM) 50 mg tablet Take 1-2 tablets by mouth every 8 hours asneeded for Pain (post oper ative) for up to 7 days.ursodiol (ACTIGALL) 300 mg capsule Take 1 capsule by mouth twice daily . STARTAFTER SURGERY.pantoprazole DR (PROTONIX) 20 mg tablet Take 20 mg by mouth once daily.thiamine (VITAMIN B-1) 100 mg tablet Take 1 tablet by mouth once daily.hydroCHLOROthiazide (H YDRODIURIL, ESIDRIX) 25 mg tablet Take 25 mg by mouthonce daily.cloNIDine HCl (CATAPRE S) 0.2 mg tablet Take 0.2 mg by mouth twice daily.multivitamin tablet Take 1 tablet by mouth once daily.No current facility-administered medications for this visit.ACTIVE PROBLEM LISTArt hritis of KneeMorbid Obesity (Hcc)Obesity, Class III, BMI >= 40Class 3 Obesity With Body Mass Index (Bmi) of 40.0 to 44.9 in Adult ([facility])REVIEW OF SYSTEMS: Denies nausea, vomiting, dumping syndrome, abdominal pain,constipation, diarrhea, melena, hematochezia and paresthesias, gaitabnormalit y, fatigue, weakness, lower extremity edemaPHYSICAL EXAM:Deferred, no abdominal issues, all wound healed nicely. No ridity, reboundtenderness or guardingASSESSMENT AND PLAN: Normal post-OP courseD ISPOSITION: Return 1 month to Post-op follow up/ individual office visitEDUCATION: Pt encourage d to continue with positive lifestyle changes anddaily/vitamin intakeREFERRALS: N/ALABS: To day: Surgical pathology reviewed In one month: CBC, BMP, Vitamin B12, Folate, and B1; she does not haveinsurance coverage for iron studies, vitamin DContinue with PPI, ActigallAdvised to stop HCTZ and follow up with PCPLilly Estevez APRN.CNPReferring Provider: SELF [[id number]]Allergies As of Date: 0 01/13/2018 Noted Allergy ReactionBEES 03/15/2013 7 - SwellingDate Reviewed: 01/13/2018Reviewed by: Sara Aggarwal - Fully AssessedPrimary Visit Diagnosis:S/P laparoscopic sleeve gastrect lola [Z98.84] Other Visit Diagnosis:Vitamin deficiency [E56.9]Order(s):BASIC METABO LIC PNL [SQBMP] Order #: [id number] FUTURE CBC [SQCBC] Order #: [id number] FUTURE FOLATE SER UM [SQSERFOL] Order #: [id number] FUTURE VITAMIN B1/THIAMINE, WHOLE BLD [DNY9ZYH] Order #: [id number] FUTURE VITAMIN B12 BLOOD [SQB12] Order #: [id number] FUTUREPrescriptions as of Sig: TRAMADOL 50 MG TABLET Take 1-2 tablets by mouth arsen* URSODIOL 300 MG CAPSULE Take 1 capsule by mouth twice* PANTOPRAZOLE 20 MG TABLET,DEL* Take 20 mg by mouth once maged* THIAMINE HC L (VITAMIN B1) 100* Take 1 tablet by mouth once d* HYDROCHLOROTHIAZIDE 25 MG TAB* Take 25 mg by donna th once maged* CLONIDINE HCL 0.2 MG TABLET Take 0.2 mg by mouth twice da* MULTIVITAMIN TABLET Take 1 tablet by mouth once d*Problem List As Of Date 01/13/2018 Noted Resolved Arthritis of knee [ M17.10] INVALID FOR* Meniscus tear [S83.209A] 06/06/2013 Tear of medial cartilage or meniscus of helen andino c*INVALID FOR*06/06/2013 Morbid obesity (HCC) [E66.01] INVALID FOR* More... Obesity, Class III, BMI >= 40 [E66.01] INVALID FOR* Class 3 obesity with body mass index (BMI) of 4*INVALID FOR* Othe r instructions from your clinician: Please wait another 3 weeks before lifting over 10 pounds and a nother 2 weeks before soaking in a tub/swimming in a pool. Otherwise, you are permitted to partici landin in cardiovascular exercise.Disposition: Return in about 1 month (around 02/12/2018) for Dr. Wynn, Woody felton.Follow-up and Disposition History Recorded --------Questionnai re: AG GEN SURG BARIATRIC PO ST-OP VISITSWEIGHT (pounds) -> 279.6Encounter Number: [id number] Status:Closed by LILLY STILES on 01/01 12/18 progress on 2018-01 Protein mass conc HNO ID: [id number]: Normal 01-07-2018 [facility]fany (Res) [facility] FatchikovaService: General ([id number]) SurgeryAuthor Type: ResidentType: Progress NotesFiled: 01/07/2018 4:32 PMNote Text:FABIO RemovalStitches cut. FABIO pulled - intact. Area covered with 4x4.Stefany Barksdale MDGeneral Surgery ResidentJune 2017 4:31 PMPager: [phone] Protein mass conc HNO ID: [id number]: Normal 01-07-2018 [facility] Stefany (Res) [facility] FatchikovaService: General ([id number]) SurgeryAuthor Type: ResidentType: Progress NotesFiled: 01/07/2018 4:09 PMNote Text:PROGRESS NOTEElective Surgery Progress NoteSERVICE DATE: 01/07/2018SERVICE TIME: 11:11 AMSUBJECTIVE:SubjectiveBowel movement NoFlatus YesDiet DIET BARIATRICAmbulating YesNausea NoEmesis NoCurrent Facility-Administered Medications:potassium phosphate 15 mmol in NaCl 0.9% 250 mL 15 mmol INTRAVENOUS ONCElactated ringers infusion 5-30 mL/hr INTRAVENOUS CONTINUOUSscopolamine - VERIFY patch OTHER q 8 Hpotassium chloride 20 mEq in lactated Ringers 1,000 mL 150 mL/hrINTRAVENOUS CONTINUOUS0.9% NaCl 2-10 mL 2-10 mL INTRAVENOUS q [address] 40 mg tab(s) (PROTONIX) 40 mg ORAL DAILY (6 AM)ondansetron (PF) 4 mg injection (ZOFRAN) 4 mg INTRAVENOUS q 4 H PRNacetaminophen 650 mg CUP (TYLENOL) 650 mg ORAL q 6 HtraMADol 50-100 mg tab(s) (ULTRAM) 50-100 mg ORAL q 6 H PRNenoxaparin 40 mg injection (LOVENOX) 40 mg SUBCUTANEOUS q 12 HRHYDROmorphone 0.5 mg injection (DILAUDID) 0.5 mg INTRAVENOUS q 3 H PRNOBJECTIVE:ObjectivePHYSICAL EXAM:VITAL SIGNSBP 144/77 Pulse 66 Temp (Src) 96.8 (Oral) Resp 18 Ht 5' 5.354(1.66m) Wt 289 lb (131.1kg) SpO2 94% BMI 47.57 kg/(m2).Temp (24hrs), Av.4 ?C (97.6 ?F), Min:36 ?C (96.8 ?F), Max:36.7 ?C(98.1 ?F)Date 01/06/18699 - 01/07/1865801/07/18699 - 01/08/18 0659Shift 0889-5630 2064-3311 9756-1695 24 Hour Total 2664-9913 [id number] 24 Hour TotalINTAKE PO 480 240 720 PO 480 240 720 IV 850 850 LR 850 850 Shift Total 1330 240 1570OUTPUT Urine 213 157 6344 Void (ml) 925 769 4366 Tubes 45 40 40 125 Drain/Tube Output (Drain/Tube 01/05/18 1845 Admission to [facility] Abdomen) 45 40 40 125 Shift Total 745 340 40 1125Weight (kg) 131.1 131.1 131.1 131.1 131.1 131.1 131.1 131.1GENERAL: Alert, no distress, cooperativeSKIN: Skin color, texture, turgor normal. No rashes or lesions.LUNGS: Unlabored breathing on O2 Therapy: Room Air on sating at SpO2: 96%CARDIAC: rate and rhythm as above,ABDOMEN: Benign, Soft, No masses, hepatosplenomegaly, No lymphadenopathyand Mild tenderness in GeneralizedEXTREMITIES: ROM of all joint grossly normal: strength grossly normalbilaterally. No deformities noted.WOUND: No abdominal wound issuesJP with SS outputDATA:Diagnostic tests reviewed for today's visit:No results for input(s): BODSITE, CTYPE, PH, PCO2, PO2, BE, HCO3, CO2CT,O2HB, COHB, MHGB, TEMP, PHTC, PCO2T, PO2T, O2AD in the last 72 hours.Recent Labs 410 500 [id number] 0.91 -- 0.84BUN 6* -- 9NA 139 -- 136K 3.4* -- 4.1CHLOR 103 -- 101CO2 30 -- 30ANION 9 -- 9GLUC 95 -- 111*CA 8.8 -- 8.3*WBC 7.44 8.43 11.76*HB 10.7* 10.9* 10.6*HCT 35.0 34.4 33.9*PLT 257 273 253ASSESSMENT AND PLAN:Active Hospital Problems Diagnosis Date Noted- Morbid obesity (HCC) 12/15/2017 Overview Note: Added automatically from request for surgery [id number]- Obesity, Class III, BMI >= 40 01/05/2018- Class 3 obesity with body mass index (BMI) of 40.0 to 44.9 in adult(HCC) 01/05/2018Assessment/PlanThis is a 52 year old female s/p lap sleeve gastrectomy 01/05/1858-JSZW-bvb-pain nvctmbl-bpz-jwvlu 2-Discharge home today- D/C FABIO drainSIGNATURE: Stefany Barksdale MD PATIENT NAME: Reta KraftATE: January 07, 2018 : 11:11 AM PAGER: see belowElective General Surgery Service Pager:For questions or concerns Mon-Fri 6a-5p please page [phone].After 5pm and on Weekends and Holidays, please page [phone] if in ICU or 2174if on RNF. mdrd gfr on 2018-01 GFR/1.73 sq M >60 >60mL/min/1.73m2 mL/min/{1.73_m2} Normal [facility] predicted among [facility] non-blacks MDRD (000 00) vol rate/area (S/P/Bld) Comment: Result Comment: If the patie nt is , multiply the result by 1.210. Performed By: #### P14 ####A [place] [address] hemogram/diff on 18-01-07 Abs Immature Grans 0.02 0.00-0.05 thou/cmm Normal 01-07-2018 [facility] (00 000) Comment: Performed By: #### P14 ####A [place] [address] Abs. Baso 0.07 0.01-0.08 thou/cmm Normal 01-07-2018 [facility] (11030) Comment: Performed By: #### P14 ####[place] [address] Abs. [place] 0.53 0.27-0.70 thou/cmm Normal 01-07-2018 [facility] (79813) Comment: Performed By: #### P14 ####[place] [address] Abs. Neut (ANC) 4.55 1.56-6.13 thou/cmm Normal 01-07-2018 [facility] (28975) Comment: Performed By: #### P14 ####A [place] [address] Basophils/100 WBC Auto (Bld) 0.9 % Normal 0 01-07-2018 [facility] (49110) Comment: Performed By: #### P14 ####A [facility] [place], [place] [address] Eosinophils Auto #/vol 0.11 0.00-0.31 thou/cmm Normal 018 [facility] (d) Health Sys tem (63422) Comment: Performed By: #### P14 ####A [facility] [place], [place] [address] Eosinophils/100 WBC Auto (Bld) 1.5 % Normal 01-07-2018 [facility] (47647) Comment: Performed By: #### P14 ####A [address] [address] Erythrocyte distribution 18.5 11.7-14.4 % High 01-07 [facility] width Auto Ratio (RBC) System (04646) Comment: Performed By: #### P14 ####A [address] [address] Hematocrit Auto Volume 35.0 34.1-44.9 % Normal 018 [facility] Fraction (Bld) Syste m (97819) Comment: Performed By: #### P14 ####A [address] [address] Hemoglobin mass conc (Bld) 10.7 11.2-15.7 g/dL Low [facility] (00 000) Comment: Performed By: #### P14 ####A [address] [address] Immature Grans 0.30 % Normal 01-07-2018 [facility] (71043) Comment: Performed By: #### P14 ####A [address] [address] Lymphocytes Auto #/vol 2.16 1.18-3.74 thou/cmm Normal 018 [facility] (d) Health [facility] tem (54851) Comment: Performed By: #### P14 ####A [facility] [place], [place] [address] Lymphocytes/100 WBC Auto (Bld) 29.0 % Normal 01-07-2018 [facility] (95011) Comment: Performed By: #### P14 ####A [facility] [place], [place] [address] MCH Auto Entitic mass 27.4 25.6-32.2 pg Normal 01-08-[address] [facility] (00 000) Comment: Performed By: #### P14 ####A [address] [address] MCHC Auto mass conc (RBC) 30.6 31.6-34.8 % Low [facility] (78277) Comment: Performed By: #### P14 ####A [address] [address] MCV Auto Entitic volume 89.5 79.4-94.8 fl Normal 2017 [facility] (RBC) System (00 000) Comment: Performed By: #### P14 ####A [address] [address] Monocytes/100 WBC Auto (Bld) 7.1 % Normal 0 01-07-2018 [facility] (46000) Comment: Performed By: #### P14 ####A [address] [address] Platelet mean volume Auto 10.2 9.4-12.3 fl Normal [facility] Entitic volume (Bld) System (29275) Comment: Performed By: #### P14 ####A [address] [address] Platelets Auto #/vol 257 182-369 thou/cmm Normal 8 [facility] (00 000) Comment: Performed By: #### P14 ####A [address] [address] RBC Auto #/vol (Bld) 3.91 3.93-5.22 mil/cmm Low 8 [facility] (00 000) Comment: Performed By: #### P14 ####A [facility] [place], [place] [address] RDW SD 59.6 36.4-46.3 fl High 01-07-2018 [facility] (54552) Comment: Performed By: #### P14 ####A [facility] [place], [place] [address] Seg Neutrophil 61.2 % Normal 01-07-2018 [facility] (59824) Comment: Performed By: #### P14 ####A [facility] [place], [place] [address] WBC Auto #/vol (Bld) 7.44 3.98-10.04 thou/cmm Normal 01-08-20 18 [facility] (00 000) Comment: Performed By: #### P14 ####A [address] [address] cnds on 2018-01-07 CNDS HNO ID: [id number]: Stefany (Res) Normal 01-07-2018 [facility] FatchikovaService: [facility] Type: ResidentType: Discharge ([id number]) SummariesFiled: 01/07/2018 4:11 PMNote Text:DISCHARGE NOTE (Patient Admitted Less than 48 Hours)SERVICE DATE: 01/07/2018SERVICE TIME: 1:30ADMISSION DATE: 01/05/2018DISCHARGE DISPOSITION: Home/Self Care52 year old female s/p lap sleeve gastrectomy 01/05/18GENERAL: Alert, no distress, cooperativeSKIN: Skin color, texture, turgor normal. No rashes or lesions.LUNGS: Unlabored breathing on O2 Therapy: Room Air on sating at SpO2: 96%CARDIAC: rate and rhythm as above,ABDOMEN: Benign, Soft, No masses, hepatosplenomegaly, No lymphadenopathyand Mild tenderness in GeneralizedEXTREMITIES: ROM of all joint grossly normal: strength grossly normalbilaterally. No deformities noted.WOUND: No abdominal wound issuesJP with SS outputDIET: BariatricACTIVITY AFTER DISCHARGE: Lifting is restricted to 10 lbs for 3 weeksFOLLOW UP CARE REQUIRED: Dr. Wynn, MDDISCHARGE MEDICATIONS (ONLY ACTIVATE WHEN READY TO DISCHARGE):Discharge Medication List as of 01/07/2018 12:29 PMSTART taking these medicationstraMADol (ULTRAM) 50 mg tabletTake 1-2 tablets by mouth every 8 hours as needed for Pain (postoperative) for up to 7 days.Print RX, Disp-20 tablet, R-0Dx: 1. Morbid obesity (HCC)CONTINUE these medications which have NOT CHANGEDursodiol (ACTIGALL) 300 mg capsuleTake 1 capsule by mouth twice daily. START AFTER SURGERY.Normal, Disp-60 capsule, R-5pantoprazole DR (PROTONIX) 20 mg tabletTake 20 mg by mouth once daily.Historical Medthiamine (VITAMIN B-1) 100 mg tabletTake 1 tablet by mouth once daily.Normal, Disp-90 tablet, R-0, Long-termDx: 1. Thiamine deficiencyhydroCHLOROthiazide (HYDRODIURIL, ESIDRIX) 25 mg tabletTake 25 mg by mouth once daily.Historical Med, Long-termcloNIDine HCl (CATAPRES) 0.2 mg tabletTake 0.2 mg by mouth twice daily.Historical Med, Long-termmultivitamin tabletTake 1 tablet by mouth once daily.Historical Med, Long-termFINAL DIAGNOSIS: Morbid ObesitySIGNATURE: Stefany Barksdale MD PATIENT NAME: Reta Bonilla: January 07, 2018 : 4:09 PM PAGER: [phone] case managem on 201 03-08-07 CASE MANAGEM HNO ID: [id number]: Normal 0 01-07-2018 [facility] LUZ ELENA Mancia Rnervice: [facility] Care ManagementAuthor Type: ([id number]) Registered NurseType: Care Mgt Progress NoteFiled: 01/07/2018 8:46 AMNote Text:CARE MANAGEMENT PROGRESS NOTESERVICE DATE: 01/07/2018SERVICE TIME: 0844 LOS: 2 daysNeeds Prior to Discharge: NoneChart reviewed. Patient POD#2 s/p laparoscopic sleeve gastrectomy.Discharge plan remains return to home with when medically stable;anticipate discharge home likely later today. No new discharge needs notedat this time.SIGNATURE: Jaki Quezada RN PATIENT NAME: Reta Bonilla: January 07, 2018 : 8:44 AM PAGER/CONTACT #: [phone] basic panel on 2017 Creatinine mass conc 0.91 0.51-0.95 mg/dL Normal 8 [facility] [employer] [facility] (00 000) Comment: Performed By: #### P14 ####A [facility] [place], [place] [address] Anion gap 3 molar conc 9 8-16 mmol/L Normal 018 [facility] (48002) Comment: Performed By: #### P14 ####A [address] [address] CO2 molar conc 30 21-32 mEq/L Normal 01-07-2018 [facility] (49918) Comment: Performed By: #### P14 ####A [address] [address] Glucose mass conc 95 70-99 mg/dL Normal 01-07-2018 [facility] (37266) Comment: Performed By: #### P14 ####A [address] [address] Urea nitrogen mass conc 6 7-18 mg/dL Low 2017 [facility] (39187) Comment: Performed By: #### P14 ####A [address] [address] Calcium mass conc 8.8 8.5-10.1 mg/dL Normal 01-07-2018 [facility] (77788) Comment: Performed By: #### P14 ####A [address] [address] Chloride molar conc 103 98-107 mEq/L Normal 01-07-2018 [facility] (66258) Comment: Performed By: #### P14 ####A [address] [address] Potassium molar conc 3.4 3.5-5.1 mEq/L Low 8 [facility] [employer] [facility] (39144) Comment: Performed By: #### P14 ####A [address] [place] [address] Sodium molar conc 139 136-145 mEq/L Normal 01-07-2018 A [facility] (22340) Comment: Performed By: #### P14 ####A [address] [address] No panel information on 2018-01-07 CONVERTED CLINICAL OPERATIVE PROCEDURE: 01-07-2018 [facility] HISTORY Laparoscopic gastrectomy ([id number]) CLINICAL INFORMATION: Morbid obesity CONVERTED ELECTRONIC YAMILE LOPEZ M.D. 0 01-07-2018 [facility] SIGNATURE (Electronic signature on file) ([id number]) Final Signed Out: 01/07/2018 14:12 CONVERTED FINAL FINAL DIAGNOSIS: 018 [facility] DIAGNOSIS SLEEVE GASTRECTOMY - NO INFL AMMATORY PROCESS OR OTHER DIAGNOSTIC ABNORMALITY IS IDENTIFIED. ( 62220) CONVERTED GROSS GROSS DESCRIPTION: 01-07 [facility] DESCRIPTION Sleeve gastrectomy ([id number]) Received in formalin labeled sleeve gastrectomy is a partial stomach with one stapled margin measuring 24 x 3 x 2 cm. The serosal surface demonstrates patchy ecchymosis. The stapled margin is removed revealing normal rugal folds. The wall of the stomach averages 0.2 cm in t hickness. No lesion is seen. No ulceration is identified. Title Camera Operator sections are submitted from one aspect towards the opposite in three cassettes. ARH:flavio CONVERTED ORDERING Ordering Provider: [facility] PROVIDER SANDRA WYNN ( [id number]) progress on 2018-01 Protein HNO ID: [id number]: Klarissa (Intensive Care Ambulance Paramedic) No rmal 01-06-2018 [place] [facility] conc LinderService: General SurgeryAuthor Type: General Nurse PractitionerType: Progress Medical NotesFiled: 01/06/2018 1:53 PMNote Center Text:INPATIENT PROGRESS NOTESERVICE DATE: () 01/06/2018SERVICE TIME: 1:47 PMPRIMARY SERVICE: Bariatric SurgerySubjectiveCHIEF COMPLAINT: Morbid ObesityINTERVAL HPI: 52 year old female s/p sleeve gastrectomy. POD #1. Minimalnausea, pain is controlled, tolerating current phase of diet.Current hospital medications:lactated ringers infusion 5-30 mL/hr INTRAVENOUS CONTINUOUSscopolamine - VERIFY patch OTHER q 8 H[START ON 01/07/2018] scopolamine - REMOVE PATCH OTHER ONCEpotassium chloride 20 mEq in lactated Ringers 1,000 mL 150 mL/hrINTRAVENOUS CONTINUOUS0.9% NaCl 2-10 mL 2-10 mL INTRAVENOUS q [address] 40 mg tab(s) (PROTONIX) 40 mg ORAL DAILY (6 AM)ondansetron (PF) 4 mg injection (ZOFRAN) 4 mg INTRAVENOUS q 4 H PRNacetaminophen 650 mg CUP (TYLENOL) 650 mg ORAL q 6 HtraMADol 50-100 mg tab(s) (ULTRAM) 50-100 mg ORAL q 6 H PRNenoxaparin 40 mg injection (LOVENOX) 40 mg SUBCUTANEOUS q 12 HRHYDROmorphone 0.5 mg injection (DILAUDID) 0.5 mg INTRAVENOUS q 3 H PRNObjectivePHYSICAL EXAM:BP 139/55 Pulse 88 Temp (Src) 98.1 (Temporal Artery) Resp 18 Ht 5'5.354 (1.66m) Wt 289 lb (131.1kg) SpO2 94% BMI 47.57 kg/(m2).Physical Exam PerformedGENERAL: Alert, no distress, cooperativeABD: Soft. Mildly-tender.DATA:Diagnostic tests reviewed for today's visit:Most recent labsAssessment/PlanPrincipal Problem: Morbid obesity (HCC) POA: Yes Assessment AND Plan: Tolerating current phase of diet, minimal nausea,pain is controlled thus likely discharged to home later today.Continue PPI.Home going instructions reviewed. Follow up as scheduled in office.Medication and Non-Pharmacologic VTE Prophylaxis/AnticoagulantsAnticoagulant AND Antiplatelet Medications Start Dose Route Frequency Ordered Stop 01/06/18 0600 enoxaparin 40 mg injection (LOVENOX) (Surgical ModerateRisk ) 40 mg SUBCUTANEOUS EVERY 12 HOURS 01/05/18 2106 --01/05/18 2115 pneumatic compression stockings (ri,oh)01/05/18 1400 pneumatic compression stockings (ri,oh)VTE Prophylaxis: VTE prophylaxis appropriateSIGNATURE: Klarissa Harrison APRN.CNP PATIENT NAME: Reta KraftATE: January 06, 2018 : 1:47 PM PAGER:Klarissa Harrison APRN.CNP Protein HNO ID: [id number]: Stevie (Res) Jairo calin 01-06-2018 Kathie kang AdityaService: General SurgeryAuthor Type: General ResidentType: Progress NotesFiled: Medical 01/06/2018 11:13 [facility] Text: ([id number]) -Attestation signed by Liberty Wynn at 01/06/2018 5:19 PMI personally saw and examined the patient. I reviewed the resident's note. Carroll with the resident's assessment and plan unless otherwise noted below.Doing very well. Minimal abdominal pain. Denies nausea or vomiting. No acidreflux. FABIO drain is on the serous side of serosanguineous. Patient's husbandwants her to stay overnight. Plan for discharge tomorrow. Continue to monitorhemoglobin. PROGRESS NOTEElective Surgery Progress NoteSERVICE DATE: 01/06/2018SERVICE TIME: 11:11 AMSUBJECTIVE:SubjectiveSubjective: This is a 52 year old female s/p lap sleeve gastrectomyBowel movement NoFlatus NoDiet DIET BARIATRICAmbulating YesNausea NoEmesis NoCurrent Facility-Administered Medications:lactated ringers infusion 5-30 mL/hr INTRAVENOUS CONTINUOUSscopolamine - VERIFY patch OTHER q 8 Hpotassium chloride 20 mEq in lactated Ringers 1,000 mL 150 mL/hrINTRAVENOUS CONTINUOUS0.9% NaCl 2-10 mL 2-10 mL INTRAVENOUS q [address] 40 mg tab(s) (PROTONIX) 40 mg ORAL DAILY (6 AM)ondansetron (PF) 4 mg injection (ZOFRAN) 4 mg INTRAVENOUS q 4 H PRNacetaminophen 650 mg CUP (TYLENOL) 650 mg ORAL q 6 HtraMADol 50-100 mg tab(s) (ULTRAM) 50-100 mg ORAL q 6 H PRNenoxaparin 40 mg injection (LOVENOX) 40 mg SUBCUTANEOUS q 12 HRHYDROmorphone 0.5 mg injection (DILAUDID) 0.5 mg INTRAVENOUS q 3 H PRNOBJECTIVE:ObjectivePHYSICAL EXAM:VITAL SIGNSBP 122/68 Pulse 77 Temp (Src) 97.7 (Temporal Artery) Resp 18 Ht 5'5.354 (1.66m) Wt 289 lb (131.1kg) SpO2 96% BMI 47.57 kg/(m2).Temp (24hrs), Av.3 ?C (97.4 ?F), Min:35.6 ?C (96.1 ?F), Max:37 ?C(98.6 ?F)Date 01/05/18 07 - 01/06/18 0659 01/06/18 07 - 01/07/18 0659Shift [id number] 5596-4194 5651-5076 24 Hour Total 2563-0944 [id number] 24 Hour TotalINTAKE IV 2400 1000 3400 850 850 LR 1000 1000 850 850 OR Crystalloid intake (mL) 2400 2400 Shift Total 2400 1000 3400 850 850OUTPUT Urine 750 750 300 300 Void (ml) 750 750 300 300 Tubes 35 40 75 30 30 Drain/Tube Output (Drain/Tube 01/05/18 1845 Admission [facility]) 35 40 75 30 30 Blood 50 50 Estimated Blood loss 50 50 Shift Total 85 790 875 330 330Weight (kg) 131.1 131.1 131.1 131.1 131.1 131.1 131.1 131.1GENERAL: Alert, no distress, cooperativeSKIN: Skin color, texture, turgor normal. No rashes or lesions.LUNGS: Unlabored breathing on O2 Therapy: Room Air on sating at SpO2: 96%CARDIAC: rate and rhythm as above,ABDOMEN: Benign, Soft, No masses, hepatosplenomegaly, No lymphadenopathyand Mild tenderness in GeneralizedEXTREMITIES: ROM of all joint grossly normal: strength grossly normalbilaterally. No deformities noted.WOUND: No abdominal wound issuesJP with SS outputDATA:Diagnostic tests reviewed for today's visit:No results for input(s): BODSITE, CTYPE, PH, PCO2, PO2, BE, HCO3, CO2CT,O2HB, COHB, MHGB, TEMP, PHTC, PCO2T, PO2T, O2AD in the last 72 hours.Recent Labs [id number] 0.84BUN 9NA 136K 4.1CHLOR 101CO2 30ANION 9GLUC 111*CA 8.3*WBC 11.76*HB 10.6*HCT 33.9*PLT 253ASSESSMENT AND PLAN:Active Hospital Problems Diagnosis Date Noted- Morbid obesity (HCC) 12/15/2017 Overview Note: Added automatically from request for surgery [id number]- Obesity, Class III, BMI >= 40 01/05/2018- Class 3 obesity with body mass index (BMI) of 40.0 to 44.9 in adult(HCC) 01/05/2018Assessment/PlanThis is a 52 year old female s/p lap sleeve gastrectomy 01/05/1886-DIVC-mxm-pain fvczjkc-cdb-wdckq 2-cbc @ 1500-possible d/c if doing well this afternoon.SIGNATURE: Stevie Burgess MD PATIENT NAME: Reta Bonilla: January 06, 2018 : 11:11 AM PAGER: [phone] General Surgery Service Pager:For questions or concerns Mon-Fri 6a-5p please page [phone].After 5pm and on Weekends and Holidays, please page [phone] if in ICU or 2174if on RNF. nutrition on 01-06 NUTRITION HNO ID: [id number]: Cinthia Normal 01-06-2018 [facility] Center TherapyAuthor Type: Registered ([id number]) DietitianType: NutritionFiled: 01/06/2018 1:46 PMNote Text:Reta McconnellMarielyrocedure and surgery date: 01/05/18Estimated ounces of fluids consumed per hour: 4Current phase diet: Phase 2 Pt presents status post sleeve gastrectomy, post-op day number 1. Isable to tolerate 4 ounces per hour of Phase 2 diet. Choosing to usepurchased whey protein isolate protein supplement for full-liquiddischarge diet. Instructed to start post-op vitamins upon discharge d/tchoosing this supplement (reviewed 1200mg calcium citrate to be taken individed doses). Counseled extensively on meeting 64oz fluid requirement:encouraged frequent sipping throughout the day to meet this goal.Recommended patient to follow up with our office for any intake concernsand/or complications.Items provided and/or reviewed:Discharge diet instructionsPost-op JournalPost-op vitamins and schedulePlan for follow up on 01/13 for soft diet instructions and to addressfurther nutrition concerns.Cinthia Sellers RD, LD mdrd gfr on 2018-01 GFR/1.73 sq M >60 >60mL/min/1.73m2 mL/min/{1.73_m2} Normal [facility] predicted among [facility] System non-blacks MDRD (000 00) vol rate/area (S/P/Bld) Comment: Result Comment: If the patie nt is , multiply the result by 1.210. Performed By: #### CBC1 #### [address] [address] hemogram/diff on 18-01-06 Abs Immature Grans 0.03 0.00-0.05 thou/cmm Normal 01-06-2018 [facility] (00 000) Comment: Performed By: #### CBC1 #### [address] [address] Abs. Baso 0.07 0.01-0.08 thou/cmm Normal 01-06-2018 [facility] (13195) Comment: Performed By: #### CBC1 #### [address] [address] Abs. [place] 0.58 0.27-0.70 thou/cmm Normal 01-06-2018 [facility] (61632) Comment: Performed By: #### CBC1 #### [address] [address] Abs. Neut (ANC) 5.50 1.56-6.13 thou/cmm Normal 01-06-2018 [facility] (63309) Comment: Performed By: #### CBC1 #### [address] [address] Basophils/100 WBC Auto (Bld) 0.8 % Normal 0 01-06-2018 [facility] (60426) Comment: Performed By: #### CBC1 #### [address] [address] Eosinophils Auto #/vol 0.05 0.00-0.31 thou/cmm Normal 018 [facility] (d) [facility] (91002) Comment: Performed By: #### CBC1 #### [address] [address] Eosinophils/100 WBC Auto (Bld) 0.6 % Normal 01-06-2018 [facility] (31877) Comment: Performed By: #### CBC1 #### [address] [address] Erythrocyte distribution 18.5 11.7-14.4 % High 01-06 [facility] width Auto Ratio (RBC) System (20729) Comment: Performed By: #### CBC1 #### [address] [address] Hematocrit Auto Volume 34.4 34.1-44.9 % Normal 018 [facility] Fraction (Bld) Syste m (66660) Comment: Performed By: #### CBC1 #### [address] [address] Hemoglobin mass conc (Bld) 10.9 11.2-15.7 g/dL Low [facility] (00 000) Comment: Performed By: #### CBC1 #### [address] [address] Immature Grans 0.40 % Normal 01-06-2018 [facility] (66772) Comment: Performed By: #### CBC1 #### [address] [address] Lymphocytes Auto #/vol 2.19 1.18-3.74 thou/cmm Normal 018 [facility] ([facility] (28249) Comment: Performed By: #### CBC1 #### [facility] [place], [place] [address] Lymphocytes/100 WBC Auto (Bld) 26.0 % Normal 01-06-2018 [facility] (99855) Comment: Performed By: #### CBC1 #### [facility] [place], [place] [address] MCH Auto Entitic mass 27.3 25.6-32.2 pg Normal 01-07-20 18 [facility] (RBC) System (00 000) Comment: Performed By: #### CBC1 #### [address] [address] MCHC Auto mass conc 31.7 31.6-34.8 % Normal 01-06-2018 [facility] (RBC) System (00 000) Comment: Performed By: #### CBC1 #### [address] [address] MCV Auto Entitic volume 86.0 79.4-94.8 fl Normal 2017 [facility] (RBC) System (00 000) Comment: Performed By: #### CBC1 #### [address] [address] Monocytes/100 WBC Auto (Bld) 6.9 % Normal 0 01-06-2018 [facility] (79293) Comment: Performed By: #### CBC1 #### [address] [address] Platelet mean volume Auto 9.9 9.4-12.3 fl Normal -0 [facility] Entitic volume (Bld) System (81724) Comment: Performed By: #### CBC1 #### [address] [address] Platelets Auto #/vol 273 182-369 thou/cmm Normal 8 [facility] (Bld) System (00 000) Comment: Performed By: #### CBC1 #### [facility] [place] [address] RBC Auto #/vol (Bld) 4.00 3.93-5.22 mil/cmm Normal 8 [facility] (00 000) Comment: Performed By: #### CBC1 #### [facility] [place] [address] RDW SD 58.0 36.4-46.3 fl High 01-06-2018 [facility] (56384) Comment: Performed By: #### CBC1 #### [place] [address] Seg Neutrophil 65.3 % Normal 01-06-2018 [facility] (16256) Comment: Performed By: #### CBC1 #### [place] [address] WBC Auto #/vol (Bld) 8.43 3.98-10.04 thou/cmm Normal 01-07-20 18 [facility] (00 000) Comment: Performed By: #### CBC1 #### [place] [address] Abs Immature Grans 0.05 0.00-0.05 thou/cmm Normal 01-06-2018 [facility] (00 000) Comment: Performed By: #### CBC1 #### [place] [address] Abs. Baso 0.06 0.01-0.08 thou/cmm Normal 01-06-2018 [facility] (74255) Comment: Performed By: #### CBC1 #### [place] [address] Abs. [place] 0.54 0.27-0.70 thou/cmm Normal 01-06-2018 [facility] (41687) Comment: Performed By: #### CBC1 #### [place] [address] Abs. Neut (ANC) 9.71 1.56-6.13 thou/cmm High 01-06-2018 [facility] (10697) Comment: Performed By: #### CBC1 #### [address] [address] Basophils/100 WBC Auto (Bld) 0.5 % Normal 0 01-06-2018 [facility] (60810) Comment: Performed By: #### CBC1 #### [address] [address] Eosinophils Auto #/vol 0.01 0.00-0.31 thou/cmm Normal 018 [facility] ([facility]) Health Sys tem (59324) Comment: Performed By: #### CBC1 #### [address] [address] Eosinophils/100 WBC Auto (Bld) 0.1 % Normal 01-06-2018 [facility] (54642) Comment: Performed By: #### CBC1 #### [address] [address] Erythrocyte distribution 18.3 11.7-14.4 % High 01-06 [facility] width Auto Ratio (RBC) System (13064) Comment: Performed By: #### CBC1 #### [address] [address] Hematocrit Auto Volume 33.9 34.1-44.9 % Low 018 [facility] Fraction (Bld) Syste m (47040) Comment: Performed By: #### CBC1 #### [address] [address] Hemoglobin mass conc (Bld) 10.6 11.2-15.7 g/dL Low [facility] (00 000) Comment: Performed By: #### CBC1 #### [address] [address] Immature Grans 0.40 % Normal 01-06-2018 [facility] (79791) Comment: Performed By: #### CBC1 #### [address] [address] Lymphocytes Auto #/vol 1.39 1.18-3.74 thou/cmm Normal 2 018 [facility] (Bld) Health Sys tem (22053) Comment: Performed By: #### CBC1 #### [facility] [place], [place] [address] Lymphocytes/100 WBC Auto (Bld) 11.8 % Normal 01-06-2018 [facility] (10683) Comment: Performed By: #### CBC1 #### [facility] [place], [place] [address] MCH Auto Entitic mass 27.3 25.6-32.2 pg Normal 01-07-20 18 [facility] (RBC) System (00 000) Comment: Performed By: #### CBC1 #### [address] [address] MCHC Auto mass conc (RBC) 31.3 31.6-34.8 % Low - [facility] (96373) Comment: Performed By: #### CBC1 #### [address] [address] MCV Auto Entitic volume 87.4 79.4-94.8 fl Normal 2017 [facility] (RBC) System (00 000) Comment: Performed By: #### CBC1 #### [address] [address] Monocytes/100 WBC Auto (Bld) 4.6 % Normal 0 01-06-2018 [facility] (79032) Comment: Performed By: #### CBC1 #### [address] [address] Platelet mean volume Auto 10.8 9.4-12.3 fl Normal [facility] Entitic volume (Bld) System (25126) Comment: Performed By: #### CBC1 #### [address] [address] Platelets Auto #/vol 253 182-369 thou/cmm Normal 8 [facility] [employer] (Bld) System (00 000) Comment: Result Comment: Smear scanne d tech agrees with platelet count Performed By: #### CBC1 #### [facility] [place], [place] [address] RBC Auto #/vol (Bld) 3.88 3.93-5.22 mil/cmm Low 8 [facility] (00 000) Comment: Performed By: #### CBC1 #### [facility] [place], [place] [address] RDW SD 57.6 36.4-46.3 fl High 01-06-2018 [facility] (39026) Comment: Performed By: #### CBC1 #### [facility] [place], [place] [address] Seg Neutrophil 82.6 % Normal 01-06-2018 [facility] (49636) Comment: Performed By: #### CBC1 #### [facility] [place], [place] [address] WBC Auto #/vol (Bld) 11.76 3.98-10.04 thou/cmm High 01-07-20 18 [facility] (00 000) Comment: Performed By: #### CBC1 #### [place] [address] case mgt init daphne on 2018-01-06 CASE MGT HNO ID: [id number]: Jaki (Rn) Normal 01-06-2018 [facility] LUZ ELENA Coonervice: Care ManagementAuthor General Type: Registered NurseType: Care Mgt Medical Initial AssessmentFiled: 01/06/2018 1:14 Center PMNote Text:CARE MANAGEMENT: ASSESSMENT ([id number]) AND DISCHARGE PLANSERVICE DATE: 01/06/2018SERVICE TIME: 1235PRIMARY CARE PHYSICIAN:DALE Southhone: [phone] STATUS: InpatientNeeds Prior to Discharge: 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 NoAdvance Directive:Health Literacy:1. How often do you need to have someone help you when you readinstructions, pamphlets, or other written material from your doctor orpharmacy? Never - 12. How confident are you filling out medical forms by yourself? Extremely- 1If Patient scores > 3 on either question, the following interventions wereput into place:Gave Patient the opportunity to ask questions and Patient did not score >3FUNCTIONAL AND COGNITIVE/BEHAVIORALPRIOR TO ADMISSION:Baseline Mental Status: Alert AND Oriented, Person, Place , Time andSituationFunctional Status: IndependentDoes Patient Currently Receive Any Community Services or Home Care? NoneEquipment Prior to Admission: Bi-level Positive Airway Pressure/ContinuousPositive Airway PressureCane - StraightHas the Patient Been in a Long Term Facility in the Past 30 days? NoSOCIAL:Living Arrangement: HomeLives With: Spouse per patientFinancial Resources: UnemployedPrimary Contact: Extended Emergency Contact InformationPrimary Emergency Contact: Tiny Castellanos Wrgkfunn: Friend (spouse per patient)Secondary Emergency Contact: Raegan Trejo Aftlwoqu: MotherSupportive: YesOther Important Patient Contacts: NoneCaregiver Assessment:Caregiver is ready, willing and able to meet the patient's needs asrecommended by the inter-professional team? No Caregiver NeededPatient's transition needs and plan for meeting these needs: Patient plansto return home with assistance as needed at discharge. Nodischarge needs noted at this time.Does the patient have an acute stroke diagnosis, or has the patient had astroke during this admission? NoMedication Adherence:I am convinced of the importance of my prescription medication: Agreecompletely - 0I worry that my prescription medication will do more harm than good to meDisagree completely - 0I feel financially burdened by my yto-mn-bifnsj expenses for myprescription medication: Disagree mostly -0Patient is categorized as low risk < 2Are you interested in bedside delivery of your medications? YesFood Concerns:In the Last Month, Have You had Trouble Getting Food? No trouble gettingfoodDuring the Last Month, Have You Worried Whether Your Food Would Run OutBefore You Had Enough Money to Buy More? NoIs the Patient Psychosocially Complex? NoASSESSMENT AND PLAN:Medical Needs: Nutritional - bariatric diet and ObesityPsychosocial Needs: NoneFREEDOM OF CHOICE EXPLAINED:N/A --no discharge needs noted at this timePOTENTIAL TRANSITION PLANSNo Services IndicatedPatient states family will provide transport home at discharge.SIGNATURE: Jaki Quezada RN PATIENT NAME: Reta Bonilla: January 06, 2018 : 1:03 PM PAGER/CONTACT #: [phone] case managem on 03-08-06 CASE MANAGEM HNO ID: [id number]: Normal 0 01-06-2018 [facility] Jaki (Rn) [facility] RNService: Care (000 00) ManagementAuthor Type: Registered NurseType: Care Mgt Progress NoteFiled: 01/06/2018 8:20 AMNote Text:CARE MANAGEMENT PROGRESS NOTESERVICE DATE: 01/06/2018SERVICE TIME: 0819 LOS: 1 dayNeeds Prior to Discharge: To Be DeterminedChart reviewed. Patient POD#1 laparoscopic sleeve gastrectomy withintraoperative EGD. Advanced to bariatric diet. Continue to follow fordischarge planning needs.SIGNATURE: Jaki Quezada RN PATIENT NAME: Reta Bonilla: January 06, 2018 : 8:19 AM PAGER/CONTACT #: [phone] basic panel on 2017 Creatinine mass conc 0.84 0.51-0.95 mg/dL Normal 8 [facility] (00 000) Comment: Performed By: #### CBC1 #### [address] [address] Glucose mass conc 111 70-99 mg/dL High 01-06-2018 [facility] (93084) Comment: Performed By: #### CBC1 #### [address] [address] Urea nitrogen mass conc 9 7-18 mg/dL Normal 2017 [facility] (81921) Comment: Performed By: #### CBC1 #### [address] [address] Anion gap 3 molar conc 9 8-16 mmol/L Normal 018 [facility] (46108) Comment: Performed By: #### CBC1 #### [facility] [place], [place] [address] Calcium mass conc 8.3 8.5-10.1 mg/dL Low 01-06-2018 [facility] (61847) Comment: Performed By: #### CBC1 #### [facility] [place] [address] CO2 molar conc 30 21-32 mEq/L Normal 01-06-2018 [facility] (98280) Comment: Performed By: #### CBC1 #### [place] [address] Chloride molar conc 101 98-107 mEq/L Normal 01-06-2018 [facility] (21982) Comment: Performed By: #### CBC1 #### [place] [address] Potassium molar conc 4.1 3.5-5.1 mEq/L Normal 8 [facility] (82159) Comment: Performed By: #### CBC1 #### [place] [address] Sodium molar conc 136 136-145 mEq/L Normal 01-06-2018 [facility] (55510) Comment: Performed By: #### CBC1 #### [place] [address] surgical tissue exam on 2018-01-05 Surgical Tissue Test performed at [facility] 01-05-2018 [facility] [address] ([address]) [place], [place] [address]MAPI: RETA RAMOS [id number] REQUESTING: SANDRA WYNN MDFINAL DIAGNOSIS:SLEEVE GASTRECTOMY - NO INFLAMMATORY PROCESS OR OTHER DIAGNOSTICABNORMALITY IS IDENTIFIED.OPERATIVE PROCEDURE: Laparoscopic gastrectomyCLINICAL INFORMATION: Morbid obesityGROSS DESCRIPTION:Sleeve gastrectomyReceived in formalin labeled sleeve gastrectomy is a partial stomachwith one stapled margin measuring 24 x 3 x 2 cm. The serosal surfacedemonstrates patchy ecchymosis. The stapled margin is removedrevealing normal rugal folds. The wall of the stomach averages 0.2 cmin thickness. No lesion is seen. No ulceration is identified.Title Camera Operator sections are submitted from one aspect towards theopposite in three cassettes. ARH:flavio LOPEZ M.D.(Electronic signature on file)Signed out: 01/07/2018 14:12PRINTED: 01/07/2018 Page 1 of 1 Comment: Performed By: #### P14 ####[place] [address] operative no on 201 03-08-05 OPERATIVE NO HNO ID: [id number]: Liberty marks 01-05-2018 Counts Include [facility] HospitalElenarvice: General SurgeryAuthor Type: General PhysicianType: Operative ReportFiled: Medical 01/06/2018 9:43 AMNote Text:[facility] - Operative ReportSURGEON: ([id number]) ALIDA AlATIENT NAME: RETA RAMOS RN: [id number] CSN: [id number] OF SURGERY: 01/05/2018DATE OF : 1965 SEX/AGE: F/52PATIENT TYPE: I HOSP SVC: GENS LOCATION: [id number] OF SURGERY: 01/05/2018SURGEON: LAURO AlEFERRING PHYSICIAN: Lilly Estevez CNPPROCEDURES:1. Laparoscopic sleeve gastrectomy.2. Intraoperative esophagogastroduodenoscopy.ASSISTANTS:1. Dr. Stevie Burgess (surgical instrument mechanic).2. Santos Parsons (surgical supply assistant).ANESTHESIA: General anesthetic without complications.PREOPERATIVE DIAGNOSIS: Morbid obesity with body mass index of 48kilograms/meter squared.POSTOPERATIVE DIAGNOSIS: Morbid obesity with body mass index of 48kilograms/meter squared.COMPLICATIONS: Minor liver capsule injury cauterized with goodhemostasis.ESTIMATED BLOOD LOSS: 50.SPECIMEN: Sleeve gastrectomy specimen.WOUND CLASS: 2.SURGICAL COUNTS: All sponge and needle counts were correct at the end ofthe case.CRYSTALLOID: 1500 mL.DESCRIPTION OF PROCEDURE: The patient was brought to the operativetheater in stable condition. The preprocedural checklist was completedto the satisfaction the entire team and verified with the patient. Juwan have preoperativeantibiotics in the form of IV Mefoxin. She had DVT prophylaxis in theform of SCD stockings and subcutaneous Lovenox. Once she was induced andintubated byAnesthesia, she was prepped and draped in the usual fashion. We startedthe procedure by doing a Veress needle entry in the left upper quadrant.A #15 blade was used to make the skin incision. Veress needle wascarefully introduced. Insufflation was hooked up with appropriateinsufflation pressures. We then used a 5 millimeter 0 degree scopewithin a 5 millimeter optical trocar to gain entry into the abdomen.There was no evidence of injury to surrounding structures. We thenswitched to a 5 millimeter 30-degree scope to facilitate placement of ourother port sites. This involved two 12 millimeter ports in the midabdomen, two 5 millimeter ports in right upper quadrant, and 1 further 5millimeter port in the left upper quadrant. We then switched to a 10millimeter 45-degree scope. The reticulating liver retractor was broughtin via the right upper quadrant and used to retract the left lobe of theliver anteriorly. The patient was then placed in steep reverseTrendelenburg position. To begin the procedure, the advancedhemostasis function on the Harmonic energy device was used to enter thelesser sac along the greater curve of the stomach. The gastrocolicligament was takenproximally towards the left vida again using the Harmonic. She did havesome redundant fundus adherent to the diaphragm, which was dissectedaway. There was no evidence of hiatal hernia. There was goodintraabdominal length of esophagus. We then took the distal gastrocolicligamentous attachments heading towards the pylorus. She did have someretrogastric attachments taken sharply with theHarmonic. We then had Anesthesia remove the orogastric tube. We thenplaced a 40- Luxembourger blunt-tip bougie through the patient's mouth with thetip in the distal stomach. To create the sleeve gastrectomy, a series ofsequential 60 millimeter purple load on the Aerob iDrive stapler wereused. The first staple firing occurred approximately 5 to 6 centimetersproximal to the pylorus. The last staple firing was a 45 millimeterpurple load approximately 1 centimeter orgreater away from the angle of His. The resulting staple line wasoversewn with a running 2-0 Surgidac on the EndoStitch device. We thenremoved the 40-Luxembourger bougie. A laparoscopic bowel clamp was placeddistal to the staple line. The patient was flattened out and copiousamounts of irrigation fluid placed along the sleeve. I then performed aformal intraoperative esophagogastroduodenoscopy. The patient had noobvious esophageal pathology. The sleeve had excellent caliber. Therewas no pathological narrowing. Staple line hemostasis was excellent.Intraoperative leak test was negative. Insufflation and the gastroscopewere then removed. Laparoscopically, the irrigation fluid was suctionedout. At this point, we did notice a small capsule injury on theunderside of the left lobe of the liver. This was either from one of ourgraspers in the area or the liver retractor. The patient did have rathersignificant fatty liver disease and this was somewhat friable. We diduse a laparoscopic hook set to 80 spray on cautery to cauterize the areawith good hemostasis. At this point, we turned ourattention to doing a three-point gastropexy between the sleeve and thegastrocolic ligament using 2-0 Surgidac on the EndoStitch. I thenflattened the patient down. The specimen was ultimately removed via theright abdominal large 12 millimeter port site after stretching this witha Elba clamp. There was no breach orspillage of contents. The port was then replaced. The Navid-Thomasonfascial closure device using 0 Vicryl suture was then used to close the 2larger mid abdominal port sites. 10-20 milliliter of our Exparelsolution was placed in all of the port sites. We also used the Exparelto perform under laparoscopicassistance bilateral abdominal wall tap nerve blocks. At this point, weensured we had good hemostasis, which was indeed the case. Given thesmall liver capsule injury and slight oozing along the staple line duringthe procedure, we opted to leave a 19-Luxembourger round fenestrated FABIO drainin the left upper quadrant. This was brought out via the right upperquadrant port after removing the liver retractor. It was secured using a2-0 nylon skin stitch. At the end of the procedure, we had excellenthemostasis. The FABIO drain was simply precautionary. Insufflation wasthen removed and our 5 ports removed under direct visualization. 12millimeter port sites were then removed. Fascial defects were tied down. Specimenextraction site was irrigated with copious amounts of warm saline.FurtherExparel was placed in all of our skin incisions. 4-0 subcuticularMonocryl was used to close the skin incisions. Steri-Strips were placedover the wounds. A drain gauze was placed over the FABIO drain. Thepatient tolerated the procedure very well and was returned to recoveryroom in stable condition.SURGEON: Eulalio Al MDCD:modlRevised:01/06/2018jhD: 01/05/2018 19:47:22T: 01/06/2018 00:10:16Job #: [id number] nursing prog on 201 03-08-05 Protein mass conc HNO ID: [id number] Normal Kathie Castanon Author: Linn Avila RN [facility] Service: (none) (000 00) Author Type: Registered Nurse Type: Nursing Progress Note Filed: 01/05/2018 8:49 PM Note Text: {pt now going to 5205 again Protein mass conc HNO ID: [id number] Normal [facility] Author: Linn Avila RN [facility] Service: (none) (000 00) Author Type: Registered Nurse Type: Nursing Progress Note Filed: 01/05/2018 8:40 PM Note Text: Pt now to stay ON in PACU Protein mass conc HNO ID: [id number] Normal [facility] Author: Linn Avila RN [facility] Service: (none) (000 00) Author Type: Registered Nurse Type: Nursing Progress Note Filed: 01/05/2018 8:12 PM Note Text: {pt continuously taking o2 off. o2 removed Protein mass conc HNO ID: [id number]: Normal 01-05-2018 Kathie Avila [facility] RNService: (none)Author ([id number]) Type: Registered NurseType: Nursing Progress NoteFiled: 01/05/2018 8:10 PMNote Text:Dr. Burnham paged regarding pt's 03/12 pain and nausea. Fentanyl given perorder and pt started with Compazine vs. zofran per MD history physical on 2018-01-05 HISTORY PHYSICAL HNO ID: [id number]: Franki 01-05-2018 [facility] Liberty DuraneService: [facility] SurgeryAuthor Type: ([id number]) PhysicianType: HANDPFiled: 01/05/2018 4:09 PMNote Text:UPDATED HISTORY AND PHYSICAL EXAMINATIONSERVICE DATE: 01/05/2018SERVICE TIME: 4:09 PMPHYSICAL EXAM MUST BE COMPLETED ON ADMISSIONThe History and Physical (completed in the past 30 days) has been reviewedand the patient has been examined. The contents accurately reflect thepatient's condition with the following additions or revisions since theHANDP was completed.Examination indicates no changes.Provisional Diagnosis/Treatment Plan: Procedure(s) (LRB):LAPAROSCOPIC LONGITUDINAL GASTRECTOMY, GASTRIC RESTRICTIVE PROCEDURE,POSSIBLE OPEN,POSSIBLE BLOOD PRODUCTS (N/A)EGD (N/A)LAPAROSCOPIC BIOPSY LIVER, POSSIBLE (N/A)LAPAROSCOPIC RPR PARAESOHAGEAL HERNIA W/ FUNDOPLASTY W/ MESH, POSSIBLE(N/A)This HANDP can be found in the Electronic Medical Record dated 12/29/2017.SIGNATURE: Liberty Wynn MD PATIENT NAME: Reta KraftATE: January 05, 2018 : 4:09 PM PAGER: glucose meter on 18-01-05 Glucose mass conc 93 70-99 mg/dL Normal 01-05-2018 [facility] ([id number]) Comment: Performed By: #### CBC1 #### [place] [address] brief op not on 201 03-08-05 BRIEF OP HNO ID: [id number]: Liberty Doan 01-05-2018 [facility] General Type: PhysicianType: Brief Op NoteFiled: Medical 01/05/2018 7:08 PMNote Text: BRIEF Center OPERATIVE NOTEBARIATRIC AND METABOLIC ([id number]) INSTITUTELOG ID: [id number]/PROCEDURE DATE: 01/05/2018INCISION/PROCEDURE START TIME: 4:55 PMINCISION CLOSE/PROCEDURE END TIME:SURGEON(S) AND ARCHITECTURE FACULTY MEMBER(S):Surgeon(s) and Role: * Liberty Wynn - Primary * Stevie (Edwin Burgess - Resident - AssistingSurgical Hospital Wellness Coordinator: Mony Ramos [facility] Wellness Coordinator (Relief): Yohan Yee SAPROCEDURES AND ANESTHESIA:Procedure(s) and Anesthesia Type: * LAPAROSCOPIC LONGITUDINAL GASTRECTOMY, GASTRIC RESTRICTIVE PROCEDURE,POSSIBLE OPEN,POSSIBLE BLOOD PRODUCTS - General * EGD - GeneralRevision: NoIf CPT is a Band, Brand: N/AModifiers: - Savage-en-Y: N/A - Sleeve Gastrectomy: N/A - Gastric Banding: N/ATAP Block Performed: YesDIAGNOSIS CODE(S):Pre-Op Diagnosis Codes: * Morbid obesity (HCC) [E66.01]Post-Op Diagnosis Codes: * Same as preoperative diagnosisANESTHESIA:Anesthesia Start Time: * No date or time recorded *Anesthesia End Time: * No date or time recorded *Was Temperature Maintained Above 36.5C for the Entire Case: YesSURGICAL APPROACH: LaparoscopicDVT PREVENTION: Intermittent venous compression device and AnticoagulationINTAKE/OUTPUT:FLUID REPLACEMENT AMOUNT: 1500 mLRBC Transfusion? NoEstimated Blood Loss: 50 mlsDRAINS: NoWOUND CLASSIFICATION: Clean ContaminatedFINDINGS - LEAK TEST: NegativeSPECIMENS: sleeve gastrectomyINTRA-OPERATIVE ADVERSE EVENTS: small Liver capsule injurySIGNATURE: Liberty Wynn MD PATIENT NAME: Reta KraftATE: January 05, 2018 : 7:07 PM PAGER/CONTACT #: aneana preop on 01-05 ANES PREOP HNO ID: [id number]: John marks 01-05-2018 Kahtie Castanon DicioccioService: AnesthesiologyAuthor Medical Type: PhysicianType: Anesthesia Center PreOpFiled: 01/05/2018 3:33 PMNote Text: ([id number]) ANESTHESIOLOGY DAY OF SURGERY NOTESERVICE DATE: 01/05/2018SERVICE TIME: 3:32 PMDOB: 1965Procedure(s) (LRB):LAPAROSCOPIC LONGITUDINAL GASTRECTOMY, GASTRIC RESTRICTIVE PROCEDURE,POSSIBLE OPEN,POSSIBLE BLOOD PRODUCTS (N/A)EGD (N/A)LAPAROSCOPIC BIOPSY LIVER, POSSIBLE (N/A)LAPAROSCOPIC RPR PARAESOHAGEAL HERNIA W/ FUNDOPLASTY W/ MESH, POSSIBLE(N/A)Surgeon(s):Liberty Dang body mass index is 48.09 kg/m? as calculated from the following: Height as of this encounter: 165.1 cm (5' 5). Weight as of this encounter: 131.1 kg (289 lb).Most recent hematocrit and potassium results:Hematocrit 43.1 12/29/2017Potassium 4.0 10/19/2017ANES DOS/PREOP NOTE:Vitals: 600 412BP: 128/74Pulse: 75Resp: 18Temp: (!) 35.6 ?C (96.1 ?F)SpO2: 96%Weight: 131.1 kg (289 lb)Height: 165.1 cm (5' 5)ACTIVE PROBLEM LISTArthritis of KneeMorbid Obesity (Hcc)Obesity, Class III, BMI >= 40Class 3 Obesity With Body Mass Index (Bmi) of 40.0 to 44.9 in Adult (Hcc)PAST MEDICAL HISTORYDiagnosis Date- GERD (gastroesophageal reflux disease)- HTN (hypertension)- Hx of peptic ulcer >20 years ago- Meniscus tear left knee- Morbid obesity (HCC)- SUSAN (obstructive sleep apnea)- Osteoarthritis of both kneesPAST SURGICAL HISTORYProcedure Laterality Date- BACK SURGERY HX- KNEE LEFT OP SURGERY x3- KNEE SCOPE,MENISECTOMY,MED OR LAT 06/06/2013 Left knee arthroscopic partial medial meniscectomy- PAST SURGICAL HISTORY OF Low back- TOTAL KNEE REPLACEMENT LeftFAMILY HISTORYProblem Relation Age of Onset- Hypertension Mother- Hypertension Father- Lipids Father- Heart FatherSocial History:Social HistorySubstance Use Topics- Smoking status: Former Smoker Packs/day: 0.50 Years: 20.00 Types: Cigarettes Quit date: 07/06/2013- Smokeless tobacco: Never Used- Alcohol use Yes Comment: occasionallyNo current facility-administered medications on file prior to encounter.Current Outpatient Prescriptions on File Prior to Encounter:hydroCHLOROthiazide (HYDRODIURIL, ESIDRIX) 25 mg tablet Take 25 mg bymouth once daily.cloNIDine HCl (CATAPRES) 0.2 mg tablet Take 0.2 mg by mouth twice daily.thiamine (VITAMIN B-1) 100 mg tablet Take 1 tablet by mouth once daily.multivitamin tablet Take 1 tablet by mouth once daily.OMEGA-3S/DHA/EPA/FISH OIL (OMEGA 3 ORAL) Take by mouth.Current Facility-Administered Medications:lactated ringers infusion 5-30 mL/hr INTRAVENOUS CONTINUOUS Klarissa (Sonido)LindercefOXitin 2 g in NaCl 0.9% 100 mL MB+ (MEFOXIN) 2 g INTRAVENOUS Pre-OpOnce Klarissa Gonzales) Lindergabapentin 600 mg cap(s) (NEURONTIN) 600 mg ORAL Pre-Op Once Klarissa Gonzales)Linderscopolamine 1 mg over 3 days 1 Patch (TRANSDERM-SCOP) 1 Patch TRANSDERMALONCE Klarissa RosadoIntensive Care Ambulance Paramedic) Linderscopolamine - VERIFY patch OTHER q 8 H Klarissa Gonzales) Hunter[START ON 01/07/2018] scopolamine - REMOVE PATCH OTHER ONCE Klarissa Gonzales)Linderketamine 28.5 mg injection (KETALAR) 0.5 mg/kg/dose ([place]) INTRAVENOUSONCE Liberty Daiglelidocaine iv infusion 2 g in D5W 250 mL 2.4 mg/kg/hr ([place]) INTRAVENOUSONCE Liberty Daiglemagnesium sulfate 1.7 g in NaCl 0.9% 100 mL 1.7 g INTRAVENOUS ONCE LibertyDaigleketamine 250 mg in NaCl 0.9% 250 mL 10 mcg/kg/min ([place]) INTRAVENOUS ONCEChris Daiglebupivacaine liposome (EXPAREL) 266 mg (20 mL) + bupivacaine 0.25% 30 mL in0.9% NaCl 150 mL bag for wound infiltration INFILTRATION ONCE LibertyDaiglecelecoxib 200 mg cap(s) (CeleBREX) 200 mg ORAL ONCE Liberty DaigleAllergies:ALLERGIESAllergen Reactions- Bees SwellingDOS EXAM: Adequate NPO status: YesAnesthetic risks, benefits, alternatives, personnel and consent discussed:YesPatient agrees to proceed: YesPrevious Anesthesia: No history of adverse event.Airway Assessment: MP 2; Neck ROM: Limited Flexion and Extension; AirwayEvaluation: Thick neckSymptoms of Sleep Apnea: Hypertension, BMI > 35, Age over 50 (52 year old)and H/O OSADentition: Dentures: upperAdditional Physical Exam:Lungs: Patient health status unchanged since recent history and physical.See history and physical for exam findings.Cardiac: Patient health status unchanged since recent history andphysical. See history and physical for exam findings.Additional Pertinent Findings: N/ABlood Products: Not anticipated for this procedure.Anesthetic Plan: General, Standard ASA MonitorsPain Management Plan: Parenteral or OralASA Class: 3Other Medical Problems: NoneChronic Beta Eleonora medication administered within 24 hours: N/AI have interviewed and examined the patient. I have reviewed the medicalrecord and/or the pre-anesthesia evaluation, pertinent labs, and testresults.Significant changes in the patient's condition since the History andPhysical, not otherwise documented in primary service progress notes: NoThis contains updated information obtained within 48 hours ofSurgery/Procedure.SIGNATURE: John Garcia MD PATIENT NAME: Reta KraftATE: January 05, 2018 : 3:32 PM CSN: [id number] anes post on 01-05 ANES POST HNO ID: [id number]: John Doan 01-05-2018 [facility] DicioccioService: [facility] AnesthesiologyAuthor Type: ([id number]) PhysicianType: Anesthesia PostOpFiled: 01/05/2018 8:58 PMNote Text:POST ANESTHESIA EVALUATION NOTESERVICE DATE: 01/05/2018SERVICE TIME: 8:58 PMDOB: 1965Vitals: 01/05/1819Temp: (!) 35.6 ?C (96.1 ?F) 36.1 ?C (97 ?F) 36.5 ?C (97.7 ?F) 01/05/1819P: 140/84 151/89 155/89 151/78 01/06/1820Pulse: 84 75 75 71 01/06/1820Resp: 19 17 16 16 01/06/1820SpO2: 100% 95% 95% 95%Validated Vital Signs: YesPOST ANES STATUS: No apparent anesthetic complications. The patient isappropriately hydrated with stable respiratory and cardiovascular status.Patient has safe and adequate airway control. The patient has appropriatepain relief and no significant post operative nausea or vomiting. Thepatient has achieved baseline mental status.Further assessment by Anesthesia Service: NoneOther Remarks:SIGNATURE: John Garcia MD PATIENT NAME: Reta KraftATE: January 05, 2018 : 8:58 PM PAGER/CONTACT #: [id number] thiamine (vitb1), whole blood on 2018-01-03 Thiamine (VitB1), Whole SEE BELOW Normal 2017 [facility] Blood System (00 000) Comment: Result Comment: Vitamin B1 W hole Bld 169Reference range: 70 to 180Unit: nmol/L(NOTE)INTERPRETIVE INF ORMATION: Vitamin B1, Whole BloodThis assay measures the concentration o f thiamine diphosphate(TDP), the primary active form of vitamin B1. Approxim ately 90percent of vitamin B1 present in whole blood is TDP. Thiamine andth iamine monophosphate, which comprise the remaining 10 percent,are not measured.Test developed and characteristics determined by [facility]. See Compliance Statement B: VHT/CSPerformed by [facility],[address] [place] [id number] vrn.VHT, Westley Moe MD, Lab. DirectorPerforming Laboratory: Performed By: #### CBC1 #### [address] [address] type and screen on 2017-12-29 ABO group Nom (Bld) O Normal 12-29-2017 [facility] ([id number]) Comment: Performed By: #### CBC1 #### [address] [address] Comment PAT specimen Normal 12-29-2017 [facility] ([id number]) Comment: Performed By: #### CBC1 #### [address] [address] RH Type Positive Normal 12-29-2017 [facility] ([id number]) Comment: Performed By: #### CBC1 #### [facility] [place], [place] [address] history physical on 2017-12-29 HISTORY HNO ID: [id number]: Emily Marks Normal 12-29-2017 [facility] PHYSICAL (Intensive Care Ambulance Paramedic) WoehlerService: (none)Author Medical Type: Nurse PractitionerType: Center HANDPFiled: 12/29/2017 2:20 PMNote ([id number]) Text:HISTORY AND PHYSICAL EXAMINATIONSERVICE DATE: 12/29/2017SERVICE TIME: 1:30 PMPRICRESTWOOD [facility] PH[facility]IAN: Latha South patient has the following:ACTIVE PROBLEM LISTArthritis of KneeMorbid Obesity (Hcc)SubjectiveCHIEF COMPLAINT: Morbid ObesityHPI: This is a 52 year old female with c/o above but did not gain weightuntil 6-7 years ago when she could no longer exercise because of herknees. States she use to gain weight but was very easy to lose. States sheweighed 140 after the of her 3rd child. States she can no longertake weight off unless she exercises often. She has co-morbidities of HTNGerd SUSAN. She has lost 20 lbs for this procedure and has had multipletesting. Current BMI 48.0 After all her testing she has met the criteriafor weight loss surgery. After discussion with the surgeon she agrees tosurgical intervention.PAST MEDICAL HISTORYDiagnosis Date- GERD (gastroesophageal reflux disease)- HTN (hypertension)- Hx of peptic ulcer >20 years ago- Meniscus tear left knee- Morbid obesity (HCC)- SUSAN (obstructive sleep apnea)- Osteoarthritis of both kneesPAST SURGICAL HISTORYProcedure Laterality Date- BACK SURGERY HX- KNEE LEFT OP SURGERY x3- KNEE SCOPE,MENISECTOMY,MED OR LAT 06/06/2013 Left knee arthroscopic partial medial meniscectomy- PAST SURGICAL HISTORY OF Low back- TOTAL KNEE REPLACEMENT LeftFAMILY HISTORYProblem Relation Age of Onset- Hypertension Mother- Hypertension Father- Lipids Father- Heart FatherSOCIAL HISTORY:Social History Marital status: Single Spouse name: Years of education: Number of children:Social History Main Topics Smoking status: Former Smoker Packs/day: 0.50 Years: 20.00 Types: Cigarettes Quit date: 07/06/2013 Smokeless tobacco: Never Used Alcohol use: Yes Comment: occasionally Drug use: NoSocial History Narrative Merged History Encounter Prior to Admission medications as of 12/29/17 1329Medication Sig Last Dose Takingpantoprazole DR (PROTONIX) 20 mg tablet Take 20 mg by mouth once daily.Yesthiamine (VITAMIN B-1) 100 mg tablet Take 1 tablet by mouth once daily.YeshydroCHLOROthiazide (HYDRODIURIL, ESIDRIX) 25 mg tablet Take 25 mg bymouth once daily. YescloNIDine HCl (CATAPRES) 0.2 mg tablet Take 0.2 mg by mouth twice daily.Yesmultivitamin tablet Take 1 tablet by mouth once daily. YesOMEGA-3S/DHA/EPA/FISH OIL (OMEGA 3 ORAL) Take by mouth. Yesursodiol (ACTIGALL) 300 mg capsule Take 1 capsule by mouth twice daily.START AFTER SURGERY.No medication comments found.ALLERGIESAllergen Reactions- Bees SwellingREVIEW OF SYSTEMS:PAIN ASSESSMENT:General: Denies fever, chills, and unexpected weight change.Neuro: Denies dizziness and headaches.Respiratory: Denies SOB and cough OSACardiovascular: Denies CP and palpitations. HTNGI: Denies abd pain and N/V/D. GerdGU: Denies dysuria and frequency.Endocrine: No history of Diabetes.Hematology: Denies history of bleeding or clotting disorder.Musculoskeletal: Denies joint pain and swelling.Skin: Denies open sores and rashes.Diagnostic tests reviewed for today's visit: Lab Value Units Date High Low HB 11.3 g/dL 10/19/2017 15.7 11.2 HCT 37.9 % 10/19/2017 44.9 34.1 WBC 7.19 thou/c* 10/19/2017 10.04 3.98 PLT 340 thou/c* 10/19/2017 369 182 NA 138 mEq/L 10/19/2017 145 136 K 4.0 mEq/L 10/19/2017 5.1 3.5 GLUC 99 mg/dL 10/19/2017 99 70 BUN 14 mg/dL 10/19/2017 18 7 CREAT 0.88 mg/dL 10/19/2017 0.95 0.51 PTSEC No results within date range. INR No results within date range. APTT No results within date range. ALT 32 U/L 10/19/2017 78 12 AST 25 U/L 10/19/2017 37 9 TBILI 0.5 mg/dL 10/19/2017 1.0 0.2 TSH No results within date range. Lab Value Units Date High Low HCGQT No results within date range. UHCG No results within date range. HCG, BODY* No results within date range. Lab Value Units Date High Low ABORHD No results within date range. ABSCREEN No results within date range.No results found for: [id number] EXAM:VITALS:BP 137/89 Pulse 84 Temp 97.2 Resp 18 Ht 5' 5 (1.65m) Wt 289 lb(131.1kg) SpO2 99% BMI 48.09 kg/(m2).General: NAD. Cooperative.Skin: Skin is warm, no rashes, and no open sores.HEENT: Normocephalic.Cardiovascular: Normal S1 AND S2. RRRLungs: CTA. No respiratory distress.Abdomen: Soft.Extremities: No edema.Neurological: Alert and oriented x 3Pulses: radial pulses +2PLANHTN - Well controlledOSA - Advised to bring CPAP/BIPAP machine to hospitalMETS:Climb a flight of stairs or walk up a hill (5.50 METs)Do heavy work around the house, such as scrubbing floors, lifting ormoving heavy furniture (8.00 METs)Patient denies any chest pain or undue shortness of breath with the abovephysical activity.ANESTHESIA FINDINGS:Intubation History: No history of difficult intubationSignificant Anesthesia Considerations: NauseaDX: Morbid ObesityPlanned Procedure: LAPAROSCOPIC LONGITUDINAL GASTRECTOMY, GASTRICRESTRICTIVE PROCEDURE [90089] EGD LAPAROSCOPIC BIOPSY LIVER [2377]LAPAROSCOPIC RPR PARAESOHAGEAL HERNIA W/ FUNDOPLASTY W/ MESH [39175]The Following Tests/Procedures Have Been Initiated: TANDS HANDH AlbuminCONSULTS: nonePlanned Anesthetic: GeneralInstructions Given to Patient:Patient given verbal and written preop instructions and voicescomprehension and compliance.SIGNATURE: Emily Agustin APRN.CNP PATIENT NAME: Reta KraftATE: December 29, 2017 : 1:30 PM PAGER/CONTACT #: [facility] on 2017-12-29 Hemoglobin mass conc 13.1 11.2-15.7 g/dL Normal 8 [facility] (00 000) Comment: Performed By: #### CBC1 #### [facility] [place], [place] [address] hct on 2017-12-29 Hematocrit Auto Volume 43.1 34.1-44.9 % Normal 018 [facility] Fraction (d) Syste m ([address]) Comment: Performed By: #### CBC1 #### [facility] [place], [place] [address] albumin blood on 18-12-28 Albumin mass conc 4.1 3.4-5.0 g/dL Normal 12-29-2017 [facility] [employer] [facility] (22117) Comment: Performed By: #### CBC1 #### [address] [address] cnco on 2017-12-18 CNCO Letter Text Liberty Wynn MD [facility] Acc [address] [facility] [address]Spyz: [phone] Thk 2017Re: Reta KraftOB: Normal 12-18-[address] [place] [address] Sherie tena is to request MEDICAL clearance for the above named patient.Patient is scheduled for surgery on: 01/05/18Type of surgery to be General performed is: Bariatric and will be performed undergeneral anesthesia.Thank you,Sara Aggarwal MA for Liberty Wynn MDMaintenance Medications: OK to D/C blood Medical thinner/anticoagulant typeme dications prior to surgery:____Yes ____days before surgery____NoPatient is considered:____Low Risk ____Intermediate Risk ____High Center RiskReason: Signature (15101) of Physician DatePlease fax back as soon as possible to zach dee progress on 2017-12 Protein mass HNO ID: [id number]: Liberty marks 12-17-2017 [facility] DaigleService: (none)Author Type: Medical PhysicianType: Progress NotesFiled: Center 12/18/2017 8:21 AMNote Text:BARIATRIC ([id number]) SURGERY PREOPERATIVE VISIT NOTEName: Reta Millan Tasha Ramos is a 52 year old female seen in Bariatric Surgery clinictoday for their final preoperative assessment.WEIGHTCurrent BMI: Body mass index is 47.79 kg/m?.Initial weight/BMI : 292 lbsPlanned Procedure:Laparoscopic Sleeve GastrectomyEGDShe again presents today with her mother who had a previous open gastricbypass 20 years ago. The patient and her mother to have several concernsregarding Savage-en-Y gastric bypass. She does have a history of previouspeptic ulcer disease but no recent ulcer on EGD in her H. pylori wasnegative. She does take frequent NSAIDs for joint pain and walks with acane. She also has a history of reflux but is controlled on a proton pumpinhibitor. While on her medication she has no symptoms. She does havesignificant symptoms while off her medications. During evaluation in ourprogram was also brought to light that she does have at least mildcognitive impairment. Her mother is a good support for her. Bringing thisaltogether they're both more comfortable with sleeve gastrectomy and I dothink this is reasonable. They do understand the risk of worsening refluxafter sleeve.PAST MEDICAL HISTORY:PAST MEDICAL HISTORYDiagnosis Date- GERD (gastroesophageal reflux disease)- HTN (hypertension)- Hx of peptic ulcer >20 years ago- Meniscus tear left knee- SUSAN (obstructive sleep apnea)- Osteoarthritis of both kneesPAST SURGICAL HISTORY:PAST SURGICAL HISTORYProcedure Laterality Date- BACK SURGERY HX- KNEE LEFT OP SURGERY x3- KNEE SCOPE,MENISECTOMY,MED OR LAT 06/06/2013 Left knee arthroscopic partial medial meniscectomy- PAST SURGICAL HISTORY OF Low back- TOTAL KNEE REPLACEMENTSOCIAL HISTORY:Social HistorySubstance Use Topics- Smoking status: Former Smoker Packs/day: 0.50 Years: 20.00 Types: Cigarettes Quit date: 07/06/2013- Smokeless tobacco: Never Used- Alcohol use Yes Comment: occasionallyALLERGIES:ALLERGIESAller gen Reactions- Bees SwellingMEDICATIONS:Prior to Admission Medications:pantoprazole DR (PROTONIX) 20 mg tablet Take 20 mg by mouth once daily.thiamine (VITAMIN B-1) 100 mg tablet Take 1 tablet by mouth once daily.hydroCHLOROthiazide (HYDRODIURIL, ESIDRIX) 25 mg tablet Take 25 mg bymouth once daily.cloNIDine HCl (CATAPRES) 0.2 mg tablet Take 0.2 mg by mouth twice daily.multivitamin tablet Take 1 tablet by mouth once daily.ursodiol (ACTIGALL) 300 mg capsule Take 1 capsule by mouth twice daily.START AFTER SURGERY.OMEGA-3S/DHA/EPA/FISH OIL (OMEGA 3 ORAL) Take by mouth.VISIT NOTEThis patient was seen in clinic today to obtain informed consent, todiscuss the details of their upcoming operation including the appropriateexpectations for perioperative and postoperative care. In addition,preoperative and postoperative relevant prescriptions were provided andexplained during this clinic visit.The consent discussion included the risks, benefits and anticipatedoutcomes of the procedure, the risks and benefits of the alternatives tothe procedure, and the roles and tasks of the personnel to be involved.The patient had an opportunity to ask additional questions that wereanswered. The patient expressed that they understood.A consent form was signed today.Prescriptions were explained and provided to the patient.Very low calorie diet preoperativelyActigall postoperativelyContinue PPI postoperativelyNo extended Lovenox based on risk calculationBariatric enhanced recovery patientChsusana Wynn MD Advanced Laparoscopic and Bariatric Surgery Protein mass HNO ID: [id number]: Cinthia Thakur linda 12-17-2017 [facility] ([address]) Venturaervice: (none)Author Medical Type: Registered DietitianType: Center Progress NotesFiled: 12/18/2017 8:21 ([id number]) AMNote Text:Pre-operative 2 Week Liquid Diet InstructionsReta McconnellyPre-Op wt goal: 290#Tentative Surgery Date: 01/05/18Pre-operative %BF: deferredJournal brought to appointment: Yes, meeting protein and fluid goal2 week VLCD instructions reviewed: YesEncouraged pt to review education class materials: Yes, denies furtherquestionsPost-operative protein supplement reviewed: Yes, has purchased wheyprotein isolate (26g protein per serving)ERAS protocol reviewed: Yes, provided 2, Boost Breeze supplementsDischarge diet instruction provided: yes, provided post-op journal andfull liquid diet h/oExercise: formal exercise 4x/week (WII or total gym for 20-30 minutes) Pt has purchased whey protein isolate--reviewed mixing this with skim/1%milk for full liquid diet in to increase protein intake. Discussed thatpost-op vitamins will be started upon discharge, additional iron N/A asshe denies a regular menstrual cycle--reviewed that if menstrual cycle ispresent, iron supplement will need to be started.Goals - complete 8 day very low calorie diet and ERAS protocol - consider purchasing post-op vitamins - continue to review education class binder and discharge diet - formal exercise 4-5x/week for 30 minutes (chair exercises, WII games at a peppy pace)Cinthia Sellers RD, LD cnov on 2017-12-17 CNOV Office Visit Normal 12-17-2017 Kathie ([id number]) ---------RETA RAMOS ([id number]) 1965 Enoch Mota HTDate Time Provider Department12/17/17 2:00 PM LIBERTY WYNN4 During Medical your visit today, we recorde d the following information about you: Weight Height 132.3 kg [address], LD 8:21 AM SignedPre-operative 2 Week Liquid Diet Charlotte (0000 0) Tasha FryPre-Op wt goal: 290#Te ntative Surgery Date: 01/05/18Pre-operative %BF: deferredJournal brought to appointment: Yes, meeting pr otein and fluid goal2 week VLCD instructions reviewed: YesEncouraged pt to review education class mater ials: Yes, denies furtherquestionsPost-operative protein supplement reviewed: Yes, has purchased whey proteinisolate (26g protein per serving)ERAS protocol reviewed: Yes, provided 2, Boost Breeze sup plementsDischarge diet instruction provided: yes, provided post-op journal and fullliquid diet h/oExerc ise: formal exercise 4x/week (WII or total gym for 20-30 minutes) Pt has purchased whey protein isola te--reviewed mixing this with skim/1% milkfor full liquid diet in to increase protein intake. Dis cussed that post-opvitamins will be started upon discharge, additional iron N/A as she denies aregular m enstrual cycle--reviewed that if menstrual cycle is present, ironsupplement will need to be started.Goal s - complete 8 day very low calorie diet and ERAS protocol - consider purchasing post-op vitamins - continue to review education class binder and discharge diet - formal exercise 4-5x/week for 30 mi nutes (chair exercises, WII games at a peppy pace)Cinthia Sellers RD, Pilar Estevez, MISTI.MACHINE STRAP BUCKLER 12/17 2:46 PM Signed1. Stop taking NSAID medication, herbal supplements, fish oil, flaxseed oil 7days prior to surgery because they thin your blood. Tylenol (Acetaminophen) ispermitted before surgery.2 . If you have diabetes or high blood pressure you must make an appointment tovisit your primary care pr cora ONE WEEK after surgery to regulate yourmedication.3. Your two week post-operative appointment w rebecca Wynn is at .BEFORE SURGERY CHECKLIST1. The evening before surgery, consume 28-3 2 ounces of Gatorade or 1 boostbreeze2. The day of surgery, consume 20 ounces of Gatorade or 1 moose t breeze. Thismust be completed before you arrive to the surgery center (2 hours before)3. Continue to consume clear liquids until you arrive to surgery (2 hoursbefore)4. STOP the following medications 1 day before surgery: Hydrochlorothiazide5. TAKE the following medications the morning of surgery: Clon idine6. 12 hours before surgery shower with anti- bacterial soap, Chlorhexidine. Donot apply l otions, powder, or make-up. Apply clean clothing and bedding afteryour shower. Please remove your j ewelry, including wedding band!ITEMS TO BRING TO THE HOSPITAL:1. CPAP/BiPAP if you are being treated for sleep apnea.2. Comfortable walking shoes3. You will remain in a hospital gown during your stay. You m ay bringundergarments to Josesito Wynn MD 12/18/2017 8:21 AM SignedBARIATRIC SURGERY PREO PERATIVE VISIT NOTEName: Reta Cordova Monty Tasha Ramos is a 52 year old female seen in Bariatric Surgery cl in today fortheir final preoperative assessment.WEIGHTCurrent BMI: Body mass index is 47.79 kg/m?.In itial weight/BMI : 292 lbsPlanned Procedure:Laparoscopic Sleeve GastrectomyEGDShe again pres ents today with her mother who had a previous open gastric dnboye54 years ago. The patient and her mot her to have several concerns rascpxxjlQcnc-se-Z gastric bypass. She does have a history of previous p eptic ulcerdisease but no recent ulcer on EGD in her H. pylori was negative. She does takefrequ ent NSAIDs for joint pain and walks with a cane. She also has a history ofreflux but is controlled o n a proton pump inhibitor. While on her medicationshe has no symptoms. She does have significant sympto ms while off hermedications. During evaluation in our program was also brought to light thatalix hendrix s have at least mild cognitive impairment. Her mother is a good supportfor her. Bringing this altogethe r they're both more comfortable with sleevegastrectomy and I do think this is reasonable. They do under stand the risk ofworsening reflux after sleeve.PAST MEDICAL HISTORY:PAST MEDICAL HISTORYDiagnosis Stephen e- GERD (gastroesophageal reflux disease)- HTN (hypertension)- Hx of peptic ulcer >20 years ago- Meniscu s tear left knee- SUSAN (obstructive sleep apnea)- Osteoarthritis of both kneesPAST SURGICAL HISTORY:P AST SURGICAL HISTORYProcedure Laterality Date- BACK SURGERY HX- KNEE LEFT OP SURGERY x3- KNEE SCOPE,ME NISECTOMY,MED OR LAT 06/06/2013 Left knee arthroscopic partial medial meniscectomy- PAST SURGICAL HISTORY OF Low back- TOTAL KNEE REPLACEMENTSOCIAL HISTORY:Social HistorySubstance Use Topics- Smoking status: Former Smoker Packs/day: 0.50 Years: 20.00 Types: Cigarettes Quit date: 013- Smokeless tobacco: Never Used- Alcohol use Yes Comment: occasionallyALLERGIES:ALLERG IESAllergen Reactions- Bees SwellingMEDICATIONS:Prior to Admission Medications:pantoprazole DR (PROTONIX) 20 mg tablet Take 20 mg by mouth once daily.thiamine (VITAMIN B-1) 100 mg tablet Take 1 ta blet by mouth once daily.hydroCHLOROthiazide (HYDRODIURIL, ESIDRIX) 25 mg tablet Take 25 mg by mouthon ce daily.cloNIDine HCl (CATAPRES) 0.2 mg tablet Take 0.2 mg by mouth twice daily.multivitamin tablet Ta ke 1 tablet by mouth once daily.ursodiol (ACTIGALL) 300 mg capsule Take 1 capsule by mouth twice daily . STARTAFTER SURGERY.OMEGA-3S/DHA/EPA/FISH OIL (OMEGA 3 ORAL) Take by mouth.VISIT NOTEThis patient was seen in clinic today to obtain informed consent, to discussthe details of their upcoming operation including the appropriate expectationsfor perioperative and postoperative care. In addition, preoperat ivett andpostoperative relevant prescriptions were provided and explained during thisclinic visit.The consent discussion included the risks, benefits and anticipated outcomes ofthe procedure, the risks a nd benefits of the alternatives to the procedure, andthe roles and tasks of the personnel to be involved .The patient had an opportunity to ask additional questions that were answered.The patient express ed that they understood.A consent form was signed today.Prescriptions were explained and provided to th e patient.Very low calorie diet preoperativelyActigall postoperativelyContinue PPI postoperativelyNo extended Lovenox based on risk calculationBariatric enhanced recovery patientChr is MD [facility] Advanced Laparoscopic and Bariatric SurgeryReferring Provider: SELF [[id number]]Allergie s As of Date: 12/17/2017 Noted Allergy ReactionBEES 03/15/2013 7 - SwellingDate Reviewed: 12/17Reviewed by: Liberty Wynn - Fully AssessedReason for Visit: Established Patient [175]Mimi coleman Visit Diagnosis:BMI 45.0-49.9, adult (HCC) [Z68.42]Order(s):CONSULT TO PRE-SURGICAL TESTING (AG) [7 565954] Order #: [id number]: 1 HANDP FOR SURGERY [T6919KER] Order #: [id number] HEMOGLOBIN (HGB) [SQHGB] Order #: [id number] FUTURE HEMATOCRIT (HCT) [SQHCT] Order #: [id number] FUTURE TYPE + SCR EEN [SQTSCR] Order #: [id number] FUTURE ALBUMIN BLD [SQALB] Order #: [id number] FUTURE ursodiol ( ACTIGALL) 300 mg capsuleTake 1 capsule by mouth twice daily. START AFTER SURGERY.Disp: 60 capsuleRfl: 5Prescriptions as of 12/17/2017 Sig: PANTOPRAZOLE 20 MG TABLET,DEL* Take 20 mg by mouth once maged* TH IAMINE HCL (VITAMIN B1) 100* Take 1 tablet by mouth once d* HYDROCHLOROTHIAZIDE 25 MG TA B* Take 25 mg by mouth once maged* CLONIDINE HCL 0.2 MG TABLET Take 0.2 mg by mouth twice da* MULTIVITA MIN TABLET Take 1 tablet by mouth once d* URSODIOL 300 MG CAPSULE Take 1 capsule by mouth twice* OMEG A 3 ORAL Take by mouth.Problem List As Of Date 12/17/2017 Noted Resolved Arthritis of knee [M17.10] I NVALID FOR* Meniscus tear [S83.209A] 06/06/2013 Tear of medial cartilage or meniscus of knee, c*INVALID FOR*06/06/2013 Morbid obesity (HCC) [E66.01] INVALID FOR* More... Other instructions from your clini shelia: 1. Stop taking NSAID medication, herbal supplements, fish oil, flaxseed oil 7 days prior to surgery because they thin your blood. Tylenol (Acetaminophen) is permitted before surgery. 2. If you agudelo ve diabetes or high blood pressure you must make an appointment to visit your primary care provider O NE WEEK after surgery to regulate your medication. 3. Your two week post-operative appointment w rebecca Wynn is at . BEFORE SURGERY CHECKLIST 1. The evening before surgery, cons ume 28-32 ounces of Gatorade or 1 boost breeze 2. The day of surgery, consume 20 ounces of Gatorad e or 1 boost breeze. This must be completed before you arrive to the surgery center (2 hours befo re) 3. Continue to consume clear liquids until you arrive to surgery (2 hours before) 4. STOP the fo llowing medications 1 day before surgery: Hydrochlorothiazide 5. TAKE the following medications the mo rning of surgery: Clonidine 6. 12 hours before surgery shower with anti-bacterial soap, Chlorhe xidine. Do not apply lotions, powder, or make-up. Apply clean clothing and bedding after your shower. P lease remove your jewelry, including wedding band! ITEMS TO BRING TO THE HOSPITAL: 1. CPAP/BiPAP if y ou are being treated for sleep apnea. 2. Comfortable walking shoes 3. You will remain in a hospital go wn during your stay. You may bring undergarments to wearPrescriptions ordered this encounter Disp Refills Start End URSODIOL 300 MG CAPSULE 60 c* 5 12/17/2017 06/15/2018 Route: ORAL Sig: Take 1 caps ule by mouth twice daily. START AFTER SURGERY.Medications Discontinued During This Encounter therap eutic multivitamin tablet 0 03/15/2013 12/17/2017 Class: Historical Med Route: ORAL Sig: Take 1 tabl et by mouth once daily. Disc: Reason for discontinue is not on file.Follow-up and Disposition History Recorded --------Questionnaire: AG GEN SURG BARIATRIC PRE-OP VISITSWEIGHT (pounds) (PRE OP) -> 291.6Encounter Number: [id number] Status:Closed by LIBERTY WYNN MD on 12/18 hosp on 2017-12-15 HOSP Patient:Reta Ramos JMRN: Height:5' Normal 12-15-2017 [facility] 5(1.651 m)Weight:289 lb (131.09 [facility] kg)Outpatient Medications as of (11695) 01/05/18:ursodiol (ACTIGALL) [address] (PROTONIX) 20 mg tabletthiamine (VITAMIN B-1) 100 mg tablethydroCHLOROthiazide (HYDRODIURIL, ESIDRIX) 25 mg tabletcloNIDine HCl (CATAPRES) 0.2 mg tabletmultivitamin tabletOMEGA-3S/DHA/EPA/FISH OIL (OMEGA 3 ORAL)Admission/Clinic Administered Medications as of 01/05/18:lactated ringers infusioncefOXitin 2 g in NaCl 0.9% 100 mL MB+ (MEFOXIN)gabapentin 600 mg cap(s) (NEURONTIN)scopolamine 1 mg over 3 days 1 Patch (TRANSDERM-SCOP)scopolamine - VERIFY patchscopolamine - REMOVE PATCHketamine 28.5 mg injection (KETALAR)lidocaine iv infusion 2 g in D5W 250 mLmagnesium sulfate 1.7 g in NaCl 0.9% 100 mLketamine 250 mg in NaCl 0.9% 250 mLbupivacaine liposome (EXPAREL) 266 mg (20 mL) + bupivacaine 0.25% 30 mL in 0.9%NaCl 150 mL bag for wound infiltrationcelecoxib 200 mg cap(s) (CeleBREX)lactated ringers infusionmeperidine (PF) 12.5 mg injection (DEMEROL)ipratropium-albuterol 3 mL nebulizer solution (DUONEB)fentaNYL 50 mcg/mL 50 mcg injection (SUBLIMAZE)ondansetron (PF) 4 mg injection (ZOFRAN)prochlorperazine 10 mg injection (COMPAZINE)Problem List:Arthritis of knee [M17.10]Morbid obesity (HCC) [E66.01]Obesity, Class III, BMI >= 40 [E66.01]Class 3 obesity with body mass index (BMI) of 40.0 to 44.9 in adult (HCC)[E66.9, Z68.41]Allergies:BeesDate Verified: 01/05/18Lab ValuesLab Value Units Date High LowHEMA* 43.1 % 12/29/2017 44.9 34.1Progress Notes ([facility] ACC 492):Sara Aggarwal MA 01/01/2018 9:29 AM SignedMedical clearance received.Progress Notes ([facility] ACC 492):Cinthia Sellers RD, LD 12/18/2017 8:21 AM SignedPre-operative 2 Week Liquid Diet InstructionsTrevonjanessa Cordova FryPre-Op wt goal: 290#Tentative Surgery Date: 01/05/18Pre-operative %BF: deferredJournal brought to appointment: Yes, meeting protein and fluid goal2 week VLCD instructions reviewed: YesEncouraged pt to review education class materials: Yes, denies further questionsPost-operative protein supplement reviewed: Yes, has purchased whey proteinisolate (26g protein per serving)ERAS protocol reviewed: Yes, provided 2, Boost Breeze supplementsDischarge diet instruction provided: yes, provided post-op journal and fullliquid diet h/oExercise: formal exercise 4x/week (WII or total gym for 20-30 minutes) Pt has purchased whey protein isolate--reviewed mixing this with skim/1% milkfor full liquid diet in to increase protein intake. Discussed that post-opvitamins will be started upon discharge, additional iron N/A as she denies aregular menstrual cycle--reviewed that if menstrual cycle is present, ironsupplement will need to be started.Goals - complete 8 day very low calorie diet and ERAS protocol - consider purchasing post-op vitamins - continue to review education class binder and discharge diet - formal exercise 4-5x/week for 30 minutes (chair exercises, WII games at a peppy pace)Cinthia Sellers RD, Pilar Estevez APRN.MACHINE STRAP BUCKLER 12/17/2017 2:46 PM Signed1. Stop taking NSAID medication, herbal supplements, fish oil, flaxseed oil 7days prior to surgery because they thin your blood. Tylenol (Acetaminophen) ispermitted before surgery.2. If you have diabetes or high blood pressure you must make an appointment tovisit your primary care provider ONE WEEK after surgery to regulate yourmedication.3. Your two week post-operative appointment with Dr. Wynn is at .BEFORE SURGERY CHECKLIST1. The evening before surgery, consume 28-32 ounces of Gatorade or 1 boostbreeze2. The day of surgery, consume 20 ounces of Gatorade or 1 boost breeze. Thismust be completed before you arrive to the surgery center (2 hours before)3. Continue to consume clear liquids until you arrive to surgery (2 hoursbefore)4. STOP the following medications 1 day before surgery: Hydrochlorothiazide5. TAKE the following medications the morning of surgery: Clonidine6. 12 hours before surgery shower with anti-bacterial soap, Chlorhexidine. Donot apply lotions, powder, or make-up. Apply clean clothing and bedding afteryour shower. Please remove your jewelry, including wedding band!ITEMS TO BRING TO THE HOSPITAL:1. CPAP/BiPAP if you are being treated for sleep apnea.2. Comfortable walking shoes3. You will remain in a hospital gown during your stay. You may bringundergarments to Josesito Wynn MD 12/18/2017 8:21 AM SignedBARIATRIC SURGERY PREOPERATIVE VISIT NOTEName: Reta Ramos is a 52 year old female seen in Bariatric Surgery clinic today fortheir final preoperative assessment.WEIGHTCurrent BMI: Body mass index is 47.79 kg/m?.Initial weight/BMI : 292 lbsPlanned Procedure:Laparoscopic Sleeve GastrectomyEGDShe again presents today with her mother who had a previous open gastric bnijnn13 years ago. The patient and her mother to have several concerns [id number] gastric bypass. She does have a history of previous peptic ulcerdisease but no recent ulcer on EGD in her H. pylori was negative. She does takefrequent NSAIDs for joint pain and walks with a cane. She also has a history ofreflux but is controlled on a proton pump inhibitor. While on her medication shehas no symptoms. She does have significant symptoms while off her medications.During evaluation in our program was also brought to light that she does have atleast mild cognitive impairment. Her mother is a good support for her. Bringingthis altogether they're both more comfortable with sleeve gastrectomy and I dothink this is reasonable. They do understand the risk of worsening reflux aftersleeve.PAST MEDICAL HISTORY:PAST MEDICAL HISTORYDiagnosis Date- GERD (gastroesophageal reflux disease)- HTN (hypertension)- Hx of peptic ulcer >20 years ago- Meniscus tear left knee- SUSAN (obstructive sleep apnea)- Osteoarthritis of both kneesPAST SURGICAL HISTORY:PAST SURGICAL HISTORYProcedure Laterality Date- BACK SURGERY HX- KNEE LEFT OP SURGERY x3- KNEE SCOPE,MENISECTOMY,MED OR LAT 06/06/2013 Left knee arthroscopic partial medial meniscectomy- PAST SURGICAL HISTORY OF Low back- TOTAL KNEE REPLACEMENTSOCIAL HISTORY:Social HistorySubstance Use Topics- Smoking status: Former Smoker Packs/day: 0.50 Years: 20.00 Types: Cigarettes Quit date: 07/06/2013- Smokeless tobacco: Never Used- Alcohol use Yes Comment: occasionallyALLERGIES:ALLERGIESAllergen Reactions- Bees SwellingMEDICATIONS:Prior to Admission Medications:pantoprazole DR (PROTONIX) 20 mg tablet Take 20 mg by mouth once daily.thiamine (VITAMIN B-1) 100 mg tablet Take 1 tablet by mouth once daily.hydroCHLOROthiazide (HYDRODIURIL, ESIDRIX) 25 mg tablet Take 25 mg by mouth oncedaily.cloNIDine HCl (CATAPRES) 0.2 mg tablet Take 0.2 mg by mouth twice daily.multivitamin tablet Take 1 tablet by mouth once daily.ursodiol (ACTIGALL) 300 mg capsule Take 1 capsule by mouth twice daily. STARTAFTER SURGERY.OMEGA-3S/DHA/EPA/FISH OIL (OMEGA 3 ORAL) Take by mouth.VISIT NOTEThis patient was seen in clinic today to obtain informed consent, to discuss thedetails of their upcoming operation including the appropriate expectations forperioperative and postoperative care. In addition, preoperative andpostoperative relevant prescriptions were provided and explained during thisclinic visit.The consent discussion included the risks, benefits and anticipated outcomes ofthe procedure, the risks and benefits of the alternatives to the procedure, andthe roles and tasks of the personnel to be involved.The patient had an opportunity to ask additional questions that were answered.The patient expressed that they understood.A consent form was signed today.Prescriptions were explained and provided to the patient.Very low calorie diet preoperativelyActigall postoperativelyContinue PPI postoperativelyNo extended Lovenox based on risk calculationBariatric enhanced recovery Lucy Wynn MD [facility] h. pylori ag, stool on 2017-12-03 H. pylori Ag, Stool SEE BELOW Normal 12-03-2017 [facility] ([id number]) Comment: Result Comment: Hpylori Ag E IA StoolSpecimen Desc: StoolTest Result Negative for Helicobacter pyloriAntig en by EIA.Report Status FINAL [id number] Laboratory:[facility] [id number] Performed By: #### HPYAX ### [address] [address] thiamine (vitb1), whole blood on 2017-12-01 Thiamine (VitB1), Whole SEE BELOW Normal 2017 [facility] (00 000) Comment: Result Comment: Vitamin B1 W hole Bld 161Reference range: 70 to 180Unit: nmol/L(NOTE)INTERPRETIVE INF ORMATION: Vitamin B1, Whole BloodThis assay measures the concentration o f thiamine diphosphate(TDP), the primary active form of vitamin B1. Approxim ately 90percent of vitamin B1 present in whole blood is TDP. Thiamine andth iamine monophosphate, which comprise the remaining 10 percent,are not measured.Test developed and characteristics determined by [employer]. See Compliance Statement B: VHT/CSPerformed by A [facility],[address] [place] [id number] ydw.VHT, Westley Moe MD, Lab. DirectorPerforming Laboratory: Performed By: #### VB1WX ### [address] [address] progress on 2017-11 Protein mass HNO ID: [id number]: Cinthiacristiana mckeon 11-24-2017 [facility] conc (Rd) Venturaervice: Medical Center (none)Author Type: Registered ([id number]) DietitianType: Progress NotesFiled: 11/27/2017 3:22 PMNote Text:Reta Lemos required months of supervised wt lossEducation Class: 09/17/17Pre-Op weight goal: 290#Education Class: Patient received instruction regarding healthy foodchoices and eating behaviors identified as optimal when preparing forsurgery, losing weight after surgery, and maintaining weight losslong-term. Patient also received instruction regarding the Bariatric FullLiquid diet following surgery and optimal post-operative high-proteinsupplement choices. Other topics discussed included healthy groceryshopping and food preparation.Pre-Surgical Preparation:Post-Class Quiz: 80% taken 09/04/17, re-tested during today's appointment,scored 80% today, 11/24/17Behaviors Accomplished:Visit # 5 Date: 11/24/2017Weight: 131.2 kg (289 lb 3.2 oz)Weight goal met: Yes: pt achieved GW during today's encounter. Lpfftyauw36# below initial wt and 1# below GW.Behaviors that helped/hindered weight loss: HELPED: increasingfruit/non-starchy vegetablesKeeping journal dailyEating 3 meals/one snackChoose healthy foodsDaily multivitaminDrink between mealsSip beverages slowlyEat slowly,chew wellNo high fat/fast foodsD/c'd caffeinated, carbonated beveragesExercise: formal exericse 3x/week for 15-30 minutes (WII games or weighttraining)Written information provided and reviewed:Healthy plate/menusBehavior ChecklistJournalPt brought food journal to appointment today. Commended pt on achieving GW during today's encounter. Upon review offood journal, of days calculated, pt is meeting her daily protein andfluid goals. Provided further feedback with protein calculations via frontpage of food journal, reference 1oz of protein = 7g. Despite thisfeedback, pt would still be meeting her daily protein goal. Counseled oncalculating/monitoring every day in reference to post-op outcomes. Isusing a protein shake as meal replacement--choosing protein powder w/ 24gprotein and mixing with water--discussed mixing post-op protein supplementwith milk to aid with meeting protein goals.Goals: Goals - continue to calculate protein intake- documenting all fluids consumed (goal of 64oz of fluids, and 64g protein)-document every single day - formal exercise 4-5x/week for 30 minutes (chair exercises, WII games naldo peppy pace) - include fiber and protein with all meals, make meals mimic MyPlate - review education class binder, bring any questions to next appointmentCinthia Sellers RD, LD Protein mass HNO ID: [id number]: Lilly Doan 11-24-2017 Destindillan kang (Intensive [facility] Ambulance Paramedic) Ryan: (none)Author [facility] Center Type: Nurse PractitionerType: ([id number]) Progress NotesFiled: 11/27/2017 3:22 PMNote Text:Pre-op Visit #: 5Weight: Wt 131.2 kg (289 lb 3.2 oz) BMI 47.39 kg/d2Vya-wl Goal: 290Previous Encounter Weight: Last 2 Encounter Wt Readings: Date: Wt: 11/24/2017 131.2 kg (289 lb 3.2 oz) 10/13/2017 132.2 kg (291 lb 6.4 oz)HPI: Reta Ramos a 52 year old female for medical weight loss treatmentof her obesity related co morbidities. This individual presents for month5 preoperative visit, she does not have a direct recurrent per insurance.She does present with a weight loss and she has met her preoperativeweight loss goal, she did bring a food record for review. Furthersubjective and objective data were discussed in office today with anne marie.We reviewed the results of her testing completed in the past month, I didcommunicate initial recommendations to her patient portal. She hasfollowed through with these recommendations. Preoperative labs aresignificant for a mild thiamine deficiency, this is completelyasymptomatic, we did send over a low-dose supplement and she has followedthrough these recommendations. Upper GI was performed with no evidence ofhiatal hernia.Also reviewed recommendations for her psychology assessment. They did notea mild cognitive impairment, she does have a suitable support system. Rosie maintained her monthly appointment and has met her preoperative goals.She has demonstrated a contaminant to treatment plan preoperatively.Her blood pressure was also noted to be elevated office today, she is dueto take her second dose of medications that she has to picker/puller from herpharmacy later today. She is entirely asymptomatic.PAST MEDICAL HISTORYDiagnosis Date- GERD (gastroesophageal reflux disease)- HTN (hypertension)- Hx of peptic ulcer >20 years ago- Meniscus tear left knee- SUSAN (obstructive sleep apnea)- Osteoarthritis of both kneesSocial:Social HistorySubstance Use Topics- Smoking status: Former Smoker Packs/day: 0.50 Years: 20.00 Types: Cigarettes Quit date: 07/06/2013- Smokeless tobacco: Never Used- Alcohol use Yes Comment: occasionallyMedications:Current Outpatient Prescriptions:thiamine (VITAMIN B-1) 100 mg tablet Take 1 tablet by mouth once daily.hydroCHLOROthiazide (HYDRODIURIL, ESIDRIX) 25 mg tablet Take 25 mg bymouth once daily.cloNIDine HCl (CATAPRES) 0.2 mg tablet Take 0.2 mg by mouth twice daily.multivitamin tablet Take 1 tablet by mouth once daily.OMEGA-3S/DHA/EPA/FISH OIL (OMEGA 3 ORAL) Take by mouth.therapeutic multivitamin tablet Take 1 tablet by mouth once daily.No current facility-administered medications for this visit.ROS:General: Weight lossHEENT: Negative for frequent or significant headaches, No changes inhearing or vision, no nose bleeds or other nasal problems Cpap: Using itnightly.GI:No nausea, vomiting, or diarrheaMuskuloskeletal: Negative for joint pain or swelling, back pain or musclepainSkin: Negative for lesions, rash, and itchingPsych: See HPIExam:BP 174/98 Pulse 104 Ht 5' 5.5 (1.66m) Wt 289 lb 3.2 oz (131.2kg) BMI 47.38 kg/(m2).GENERAL APPEARANCE: Pleasant, interacts appropriately and in no apparentdistress. Appropriately groomedABDOMEN: Obese, soft, non-tender, no masses, no palpable hernia.SKIN: Skin of normal texture, temperature withoutrashes/lesions/ulcerations. PSYCH: Oriented to person, place, time; appropriate insight and judgement.Appropriate affect.Diagnostic Tests Reviewed for Today's VisitMost recent labs and imaging results.BEHAVIOR MODIFICATIONS: MetASSESSMENT/PLAN:1. Obesity, morbid, BMI 50 or higher (HCC) - ICD9: 278.01, ICD10: E66.01(primary diagnosis)-Continue ongoing efforts of following a regular balanced diet followed byregular, higher intensity exercise-Also received 10-15 minutes of dietary counseling in office today-Continue to bring food journal at every appointmentIn the literature, individuals with mild cognitive impairment are notprecluded for surgery [place] they have adequate social support anddemonstrate commitment and compliance to treatment recommendations whichin my opinion this individual has demonstrated preoperatively. She is alsomet her preoperative goals.2. Obstructive sleep apnea - ICD9: 327.23, ICD10: G47.33Continue with sleep therapy3. Gastroesophageal reflux disease, esophagitis presence not specified -ICD9: 530.81, ICD10: K21.9Biopsy not performed on previous EGD- H PYLORI AG BY EIA,STOOL4. Thiamine deficiency - ICD9: 265.1, ICD10: E51.9- VITAMIN B1/THIAMINE, WHOLE BLDGivn she has met her preoperative goals, I have placed her follow-up withDrJessie Kingsley to consent for surgery, she is aware ongoing efforts at dietand exercise will continue to be evaluated.Lilly Estevez APRN.CNPTime spent counseling was > 50% total time or 20 minutes.This note was generated using voice recognition technology and may containgrammatical errors. cnov on 2017-11-24 CNOV Office Visit Normal 11-24-2017 Kathie ([facility]) ---------RETA RAMOS ([id number]) 1965 F CHTDate Time Provider Department11/24/17 1:45 PM LILLY ESTEVEZ ([facility]) Medical [facility] During your visit to day, we recorded the following information about you: Pulse Blood Center pressure Weight Height 104/m inute 174/98 131.2 kg 1.664 Lillie Estevez APRN.CNP 11/24/2017 2:26 PM ([id number]) SignedPlease complete your l abs as discussed todayAmy MARCUS Estevez 11/27/2017 3:22 PM SignedPre-op Visit #: 5Weigh t: Wt 131.2 kg (289 lb 3.2 oz) BMI 47.39 kg/m2Pre- op Goal: 290Previous Encounter Weight: Last 2 Enc ounter Wt Readings: Date: Wt: 11/24/2017 131.2 kg (289 lb 3.2 oz) 10/13/2017 132.2 kg (291 lb 6.4 oz)HPI: Reta Ramos a 52 year old female for medical weight loss treatment of herobesity rela maria a co morbidities. This individual presents for month 5preoperative visit, she does not have a d irect recurrent per insurance. Ti present with a weight loss and she has met her preoperative weight lossgoal, she did bring a food record for review. Further subjective and objectivedata were discussed in office today with her dietitian.We reviewed the results of her testing compl eted in the past month, I didcommunicate initial recommendations to her patient portal. She has foll owedthrough with these recommendations. Preoperative labs are significant for amild thiami ne deficiency, this is completely asymptomatic, we did send over alow-dose supplement and she has followed through these recommendations. UpperGI was performed with no evidence of hiatal hernia .Also reviewed recommendations for her psychology assessment. They did note amild cognitive impairm ent, she does have a suitable support system. She hasmaintained her monthly appointment and has met her preoperative goals. She hasdemonstrated a contaminant to treatment plan preoperativel y.Her blood pressure was also noted to be elevated office today, she is due totake her second dose o f medications that she has to picker/puller from her pharmacylater today. She is entirely asymptomatic.PAS T MEDICAL HISTORYDiagnosis Date- GERD (gastroesophageal reflux disease)- HTN (hypertension) - Hx of peptic ulcer ANDgt;20 years ago- Meniscus tear left knee- SUSAN (obstructive sleep apnea)- O steoarthritis of both kneesSocial:Social HistorySubstance Use Topics- Smoking status: Former Smoke r Packs/day: 0.50 Years: 20.00 Types: Cigarettes Quit date: 07/06/2013- Smokeless tobacco: Never Use d- Alcohol use Yes Comment: occasionallyMedications:Current Outpatient Prescriptions:thiamine (VITAMIN B-1) 100 mg tablet Take 1 tablet by mouth once daily.hydroCHLOROthiazide (H YDRODIURIL, ESIDRIX) 25 mg tablet Take 25 mg by mouthonce daily.cloNIDine HCl (CATAPRE S) 0.2 mg tablet Take 0.2 mg by mouth twice daily.multivitamin tablet Take 1 tablet by mouth once daily.OMEGA-3S/DHA/EPA/FISH OIL (OMEGA 3 ORAL) Take by mouth.therapeutic multivitam in tablet Take 1 tablet by mouth once daily.No current facility-administered medica tions for this visit.ROS:General: Weight lossHEENT: Negative for frequent or significant head aches, No changes in hearing orvision, no nose bleeds or other nasal problems Cpap: Using it nigh tly.GI:No nausea, vomiting, or diarrheaMuskuloskeletal: Negative for joint pain or swelling, back pain or muscle painSkin: Negative for lesions, rash, and itchingPsych: See HPIExam:BP 174/98 Puls e 104 Ht 5' 5.5ANDquot; (1.66m) Wt 289 lb 3.2 oz (131.2kg) BMI 47.38 kg/(m2).GENERAL APPEAR ANCE: Pleasant, interacts appropriately and in no apparentdistress. Appropriately groomedABDOMEN : Obese, soft, non-tender, no masses, no palpable hernia.SKIN: Skin of normal texture, temperature without rashes/lesions/ulcerations.PSYCH: Oriented to person, place, time; appropriate insight an d judgement.Appropriate affect.Diagnostic Tests Reviewed for Today's VisitMost recent labs and im aging results.BEHAVIOR MODIFICATIONS: MetASSESSMENT/PLAN:1. Obesity, morbid, BMI 50 or higher (HC C) - ICD9: 278.01, ICD10: E66.01(primary diagnosis)-Continue ongoing efforts of following a regul ar balanced diet followed byregular, higher intensity exercise-Also received 10-15 minutes of di kristianry counseling in office today-Continue to bring food journal at every appointmentIn the [facility], individuals with mild cognitive impairment are not precludedfor surgery [place] they have ad equate social support and demonstratecommitment and compliance to treatment recommendations wh ich in my opinion thisindividual has demonstrated preoperatively. She is also met her preoperative goals.2. Obstructive sleep apnea - ICD9: 327.23, ICD10: G47.33Continue with sleep therapy3. Gastroe sophageal reflux disease, esophagitis presence not specified - ICD9:530.81, ICD10: K21.9Bio psy not performed on previous EGD- H PYLORI AG BY EIA,STOOL4. Thiamine deficiency - ICD9: 265.1, IC D10: E51.9- VITAMIN B1/THIAMINE, WHOLE BLDGivn she has met her preoperative goals, I have p laced her follow-up with to consent for surgery, she is aware ongoing efforts at diet maryam xercise will continue to be evaluated.Lilly Estevez APRN.CNPTime spent counseling was ANDgt; 50% to severiano time or 20 minutes.This note was generated using voice recognition technology and may containgr ammatical errors.Cinthia Sellers, RD, LD 11/27/2017 3:22 PM Jasper arboleda months of supervised wt lossEducation Class: 09/17/17Pre-Op weight goal: 290#Education Class: P yolette received instruction regarding healthy food choicesand eating behaviors identified as opti mal when preparing for surgery, losingweight after surgery, and maintaining weight loss long -term. Patient alsoreceived instruction regarding the Bariatric Full Liquid diet following surger yand optimal post-operative high-protein supplement choices. Other topicsdiscussed included hea lthy grocery shopping and food preparation.Pre-Surgical Preparation:Post-Class Quiz: 80% taken 09/04/17, re-tested during today's appointment, zeewjx03% today, 11/24/17Behaviors Acco mplished:Visit # 5 Date: 11/24/2017Weight: 131.2 kg (289 lb 3.2 oz)Weight goal met: Yes: pt achieved GW during today's encounter. Currently 16#below initial wt and 1# below GW.Behaviors that h elped/hindered weight loss: HELPED: increasingfruit/non-starchy vegetablesKeeping journal da ilyEating 3 meals/one snackChoose healthy foodsDaily multivitaminDrink between mealsSip beverages s lowlyEat slowly,chew wellNo high fat/fast foodsD/c'd caffeinated, carbonated beveragesExercise : formal exericse 3x/week for 15-30 minutes (WII games or weighttraining)Written infor mation provided and reviewed:Healthy plate/menusBehavior ChecklistJournalPt brought f ood journal to appointment today. Commended pt on achieving GW during today's encounter. Upon revi ew of foodjournal, of days calculated, pt is meeting her daily protein and fluid goals.Provided fur ther feedback with protein calculations via front page of foodjournal, reference 1oz of protein = 7 g. Despite this feedback, pt would stillbe meeting her daily protein goal. Counseled on calculati ng/monitoring everyday in reference to post-op outcomes. Is using a protein shake as mealreplace ment--choosing protein powder w/ 24g protein and mixing withwater--discussed mixing post-op protein supplement with milk to aid withmeeting protein goals.Goals: Goals - continu e to calculate protein intake- documenting all fluids consumed (goal of 64oz of fluids, and 64g prot ein)-document every single day - formal exercise 4- 5x/week for 30 minutes (chair exercises, WI I games naldo peppy pace) - include fiber and protein with all meals, make meals mimic MyPlate - r eview education class binder, bring any questions to next appointmentCinthia Sellers RD, LDReferring Provider: SELF [[id number]]Allergies As of Date: 11/24/2017 Noted Allergy ReactionBEES 0 03/15/2013 7 - SwellingDate Reviewed: 11/24/2017Reviewed by: Johanna Roque) Saul - Fully AssessedReason for Visit: Established Patient [175]Primary Visit Diagnosis:Obesity, morbid, BMI 50 or higher (HC C) [E66.01] Other Visit Diagnoses:Obstructive sleep apnea [G47.33] Gastroesophageal reflux dise ase, esophagitis presence not specified [K21.9] Thiamine deficiency [E51.9]Order(s):VITAMIN B1/T HIAMINE, WHOLE BLD [ILR6PNU] Order #: [id number] FUTURE H PYLORI AG BY EIA,STOOL [SQHPYLAG] Order # : [id number] FUTUREPrescriptions as of 11/24/2017 Sig: THIAMINE HCL (VITAMIN B1) 100* Take 1 tab let by mouth once d* HYDROCHLOROTHIAZIDE 25 MG TAB* Take 25 mg by mouth once maged* CLONIDINE HCL 0.2 MG TABLET Take 0.2 mg by mouth twice da* MULTIVITAMIN TABLET Take 1 tablet by mouth once d* OMEG A 3 ORAL Take by mouth. THERAPEUTIC MULTIVITAMIN TABL* Take 1 tablet by mouth once d*Problem List As Of Date 11/24/2017 Noted Resolved Arthritis of knee [M17.10] INVALID FOR* Meniscus tear [S83.209A ] 06/06/2013 Tear of medial cartilage or meniscus of knee, c*INVALID FOR*06/06/2013 Other instruc tions from your clinician: Please complete your labs as discussed todayDisposition: Return in about 1 month (around 12/24/2017) for Dr. Wnyn, Dietitian.Follow-up and Disposition History Recorded --------Questionnai re: AG GEN SURG BARIATRIC OH E-OP VISITSWEIGHT (pounds) (PRE OP) -> 289.2GOAL WEIGHT -> 290Encounter Number: [id number] Status:Closed by FRANKY STILES on 11/27/17 progress on 2017-10 Protein HNO ID: [id number]: Kerrie ÁlvarezsienaService: Normal 10-27-2017 [place] mass (none)Author Type: PhysicianType: Progress General conc NotesFiled: 11/10/2017 2:42 PMNote Text:October 27 Medical 2017Reta McconnellyDOB: 1965Encounter Dates: Center 09/29/17 and 10/27/17Reta Ramos was referred to ([id number]) this office by Dr. Wynn and his bariatricsurgery team for psychological evaluation pertaining to Ms. Ramos?sconsideration of bariatric surgery to assist in treating her morbidobesity. We saw Ms. Ramos over two sessions: September 29 and October 27, 2017.During these visits we conducted our standard preoperative psychologicalevaluation. This included: a clinical interview, administration andinterpretation of a rapid screening instrument for cognitive dysfunctionas well as a broadband measure of personality and psychopathology, reviewof her food/activity log, and extended discussion of the standardpreoperative dietary and activity changes we recommend for bariatricsurgery candidates. This report summarizes our findings andrecommendations pertaining to Ms. Ramos?s care.Identifying InformationMs. Raoms is a 52-year-old female considering bariatric surgery. Shereported a current weight of 294 pounds at a height of 5' 8? with BMI >44.History of Present IllnessMsJessie Ramos reported weighing 294 pounds at 5' 8?, which she said is downabout 12 pounds since her first meeting with the bariatric surgery team.She said the surgical team?s weight loss goal for her is 13 pounds. Shereported weighing 311 pounds when she began preparing for bariatricsurgery in July 2017.Ms. Ramos reported being an ?average? weight in high school. She said shewas around 120 pounds at age 16. She said she steadily gained about 30pounds over the course of having three children. She reported she gainedabout 100 pounds over the course of a year in 2012 after having three kneesurgeries. During this time she said she went from 170 pounds to 270pounds. She described a family history of obesity and stated her motherhad bariatric surgery. She said knee pain/problems, soda pop,grazing/snacking, and eating convenience foods have contributed to herweight gains. She was vague in her report of how long she has beenconsidering surgery. She said her mother has been encouraging it foryears. She noted her mother had bariatric surgery about 20 years ago, lostweight, and now gets sick from eating too much/too quickly. Generally, had fair insight and was a poor historian regarding her weighthistory.Ms. Ramos attended our program's nutrition class and met the bariatricsurgery team at least 4 times. We advised her to attend the bariatricsurgery support group. She related some understanding of the dietary andactivity changes that we routinely recommend patients embark onpreoperatively. Ms. Ramos related a vague understanding of the risks, sideeffects, and potential benefits that bariatric surgery might pose for her.However, she was unable to describe any risks or side effects of surgerywithout cueing. She said she understood that was a possible sideeffect. However, with other side effects (e.g., of anesthesia), she stated?I?m not sure and don?t want to know.? She also expressed clearuncertainty as to which surgical procedure preferred and presented littleknowledge about any particular type(s) of bariatric surgery. She statedshe would have the procedure the surgeon recommends. Her motivation forsurgery includes having less joint pain, more mobility, and doing moreactivities with her grandchildren.Ms. Ramos brought her food journal to our first meeting and appears to begenerally implementing recommended dietary changes. She describedcontinuing to decrease snacking late in the day and increasing duration ofexercise sessions. She reported exercising using [employer] 2-3times/week for about 20 minutes per session. She did not bring her log toour second meeting and reported she had nearly filled the log.Relevant Medical HistoryMs. Richard?s medical history includes GERD, hypertension, torn meniscus,sleep apnea, osteoarthritis in knees, and history of peptic ulcer (> 20years ago). Her surgical history includes back surgery, knee surgery, kneescope, and knee replacement. Her medications include clonidine,pantoprazole, hydrochlorothiazide, omega 3, and multivitamins.Mental/Behavioral/Psychopharmacologi dann Treatment HistoryMs. Richard denied any history of psychotherapeutic or psychopharmacologicaltreatment. She reported drinking wine rarely, denied caffeine intake, andsaid she successfully quit smoking over four years ago. Ms. Ramos reporteddifficulty falling and staying asleep, getting about 6 hours of sleep pernight.Psychosocial HistoryMs. Richard described moving frequently as a child. She reported being born [place], [place] and moving to [place], [place], then moved to [place], [place],and [place] due to her father?s employment. She said her parents arestill and she has three brothers (one older, two younger) who areall still living. She stated her mother worked at a factory then became [employer]. She noted her father worked for [employer] then as a cement corrugated fastener driver.She described her family as close and supportive. She denied any historyof trauma, neglect, or abuse.Education/Work: Ms. Ramos stated she started high school in [place], [place] butgraduated from a high school in [place], [place]. She describedherself as a B/C student who did not participate in school activities butwas active in rastafarian activities. She denied any behavioral problems,special education, or learning disabilities. During high school she workedat a [employer]. 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 Most recently she worked at an [employer] for 14 years before beginning receiving disability benefitsabout two years ago for back and knee injuries/pain.Relationship History: Ms. Ramos reported she has been twice and isnot currently in an intimate relationship. She described having threechildren with her first , whom she was to for 13 years. Shediscussed her children are independent adults and her marriage endedbecause they were incompatible. She described a second marriage of 13years, which also ended in divorce because they were incompatible and hewas ?money grubbing.?Risk/Protective Factors: Ms. Ramos lives alone. She stated her mother is herbiggest support and she will be staying at her parent?s house aftersurgery during recovery. She described a close friend, her brothers, andher daughter as other supports.Mental Status and PresentationMs. Ramos arrived on time, was dressed casually, and was groomedappropriately. She appeared her stated age. She was oriented to person,place, and time and was alert and attentive. She had normal, coherentspeech and appropriate eye contact. She presented as cooperative andpleasant. Her mood was euthymic. Broad range of affect was present. Therewas no evidence of hallucinations or delusions during our interviews. Herinsight was fair. Her judgment was good. There is some evidence of mildcognitive impairment (see testing results below).Psychological Testing ResultsMs. Ramos was administered the [place] Multiphasic ElcgubrnrxcElkwbeygc-2-Feumcgoaudiv Form (MMPI-2-RF). The MMPI-2-RF is a broadbandmeasure of personality and psychopathology. Her responses to the items onthe MMPI-2 yielded a profile that appears valid and interpretable. Herresponses are generally consistent with those who present withgastrointestinal complaints (e.g., upset stomach) and an overall sense ofphysical debilitation/poor health (i.e., malaise). These symptoms areconsistent with many bariatric patients.Ms. Ramos was also administered the Bonilla Cognitive Assessment (MoCA).The MoCA is a rapid screening instrument for mild cognitive dysfunctionacross seven domains. Ms. Ramos?s total score (22/30) is suggestive of mildcognitive impairment. Particularly, Ms. Ramos?s responses evidenceddifficulties in the domains of visuoconstructional skills, executivefunctions, attention and concentration, and memory/recall.Summary, Impressions, RecommendationsMs. Ramos is a 52-year-old female considering bariatric surgery. Shereported a current weight of 294 pounds at a height of 5' 8? with BMI >44. She said her weight is down about 12 pounds since her first meetingwith the bariatric surgery team, which is one pound short of the bariatricteam?s preoperative weight loss goal for her. She exhibits some effort inimplementing the dietary and exercise changes we recommend to patientspreoperatively. Her judgment and adherence to preoperative recommendationsare good.However, Ms. Ramos?ana cognitive functioning is mildly impaired. She haslittle knowledge of her options for surgery and a vague grasp ofrisks/side effects. Her insight is fair and she is a poor historian of herweight history. Testing results suggested Ms. Ramos has mild cognitiveimpairment.In summary, due to Ms. Lesters mild cognitive impairment, additionalreminders and education from the bariatric team may be warranted. Inaddition, maintaining exercise and dietary changes recommendedpreoperatively may ensure a greater likelihood of maintaining the behaviormodifications necessary for successful outcomes related to surgery.Therefore, this patient is considered cleared for bariatric surgery atthis time, if she is able to maintain her lifestyle changes and meet herpreoperative goals. Additional recommendations include:? Continuing to make changes outlined in the bariatric program'sbehavioral contract.? Having ongoing contact with the bariatric team for diet/exercisemonitoring and feedback.? Attending postoperative support groups.? Seeking individual psychotherapeutic treatment if psychological symptomsarise.? Activities designed to improve cognitive functioning and memory.Kerrie Howadr, Ph.D.PsychologistSteven Miguel M.A.Security Solutions Engineer Protein HNO ID: [id number]: Kerrie HowardService: Normal 10-27-2017 [place] mass (none)Author Type: PhysicianType: Progress General conc NotesFiled: 10/27/2017 2:07 PMNote Text:Bariatric Medical Pre-op Interview - Session #2Patient: Reta Cordova Richard Jennings : 1965[facility] 2017:TrevonyaTime: 1:10-2:05 ([id number]) pmCode: [id number] changes since last sessionFood journal?: Filling up the food journal, needs a new one. Did not bringto session. Reported that almost at WL goal. and Excercise?: Problems dueto knee pain. Will play [employer], 2x a week for 30 minutes. Also usesGuojia New Materials machine 2x a week.Pt reported that she is within 1 lb. Of her preop WL goal.Psychosocial HistoryFamily of Origin (parent together? Siblings? and when? Abuse? Getalong now?) :Moved quite a bit. Born in [place], lived in [place], then [place], [place], [place]. Was moving due to father's job. Mom and dad, stillmarried, 3 brothers (1 older, 2 younger), volodymyr, played with brothers.Mom worked at a factor[employer], then a in home caregiver. Dad worked at [employer], retired from there, also worked as a cement corrugated fastener driver. Good childhood,very disciplined family, gardened, hard working family. Denied abuse orneglect.Parents sill living and together, brothers sill living. Very close family.Interpersonal History: (marriage #, how long? Children, who lives withnow, supportive of surgery? Support system?). Has been 2x, and is currently not in a relationship.First , was together for 13 years. He worked odd jobs. Pt was 20years old when they got . Has 3 kids with him (1 daughter, 2 sons -all adults now). Marriage ended due to incompatibility.Second marriage, lasted for 13 years. He worked at a [employer]. Endeddue to incompatibility- he was money grubbing.Pt lives alone. She reported that her biggest support is her mother, johnny will stay at her parent's house after surgery during the recoveryperiod. Close friend, brothers, daughter, other supports. They aresupportive of her having surgery.Educational Hx: (highest level completed, where attended, grades,extracurricular, learning disabilities / IEP, behavioral problems)High school: Started at [place], and graduated out of [place]. [employer] [place]. B/C student, average student. No activities at school,participated in rastafarian activities (basketball, volleyball, track). Deniedspecial education or learning disability. Denied any behavioral problems.Got ASC certified through [employer].Vocational Hx: (include current job and how long)Worked age 14 at the [employer]. Then at a [employer]. Worked at a [employer]. 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 Denied additional problems.Current Stressors: Car is broke down. Got family support and they helpedher repair it. Medical issue- knees.Coping Styles (strategy, hoahaoism, ethnicity, hobby): Social support fromfamily, hobbies- puzzles, adult coloring, watches old movies ([employer]).Used to be faith growing up, [employer]. .Sleep (problems falling asleep, staying asleep, quality of sleep, hours ofsleep, CPAP): Denied problems falling asleep. Some problems stayingasleep. Sleeps 5-6 hours of sleep a night, uses CPAP nightly. Fair qualityof sleep.Review MMPI-2: yes. ( T = 70-75 on MLS, GIC)Pt's response: OpenMoCA: 22/30 = MCI. Difficulties with visuospatial / executive (4/5- cubemissed), Attention (serial 7's 1/3, TTL repeated with 3's same score),Delayed recall (0/5, responded positively to cuing for category andmultiple choice).Mental Status/Behavioral Observations:Appearance: casually dressed and appropriately groomedAttitude: open and cooperativeOrientation: c9Ybulytxry/Concentration: no observed impairmentsMemory: immediate, recent and and remote-intactBehavior: unremarkableSpeech: euthymicAffect: broad rangeThought Processes: logical and goal-directedThought Content: no evidence of delusionsPerceptual Disturbances: no evidence of perceptual disturbancesSuicide/Homicide: no evidence of suicidal/homicidal ideationInsight: fairJudgement: goodDx: F50.9- Eating Disorder NOSRecommendations:Continue making changes outlined in the program's behavioral contract andHave ongoing contact with the bariatric team for frequent diet/exercisecompliance monitoring, feedback, and encouragementAlso, due to MCI might need additional reminders and curing from bariatriccenter.Kerrie Howard, PhD hosp on 2017-10-27 HOSP Psych Procedure Normal 10-27-2017 [place] on (AGPSYACC) RICHARDTREVONRETA General CORDOVA ([id number]) 1965 CHTDate Time Provider Department10/27/17 KERRIE HOWARD Medical During your visit today, we recorded the following information about you:Kerrie Howard, PhD [facility] 11/10/2017 2:42 PM [facility] 2017[facility] McconnellyDOB: 1965[facility] Dates: 09/29/17 and ([id number]) 10/27/17Reta Tasha Ramos was refe rred to this office by Dr. Wynn and his bariatricsurgery team for psychological evaluation per conyning to Ms. Ramos?s considerationof bariatric surgery to assist in treating her morbid obesity. We saw Ms. Rawls two sessions: September 29 and October 27, 2017. During these visits weconducted our standard preoperative psychological evaluation. This included: aclinical interview, adminis tration and interpretation of a rapid screeninginstrument for cognitive dysfunction as well as a bro adband measure ofpersonality and psychopathology, review of her food/activity log, and exten deddiscussion of the standard preoperative dietary and activity changes werecommend for bariatric max rgery candidates. This report summarizes our findingsand recommendations pertaining to Ms. Ramos?s care .Identifying InformationMs. Ramos is a 52-year-old female considering bariatric surgery. She repor maria a acurrent weight of 294 pounds at a height of 5' 8? with BMI > 44.History of Present Illnes [place]. Richard reported weighing 294 pounds at 5' 8?, which she said is down about 12pounds since her [facility] meeting with the bariatric surgery team. She said thesurgical team?s weight loss goal for her is 13 pounds. She reported [id number] pounds when she began preparing for bariatric surgery in 2016.Ms. Ramos reported being an ?average? weight in high school. She said she wasaround 120 pound s at age 16. She said she steadily gained about 30 pounds overthe course of having three children. Hi karli reported she gained about 100 poundsover the course of a year in 2012 after having three knee surg eries. Duringthis time she said she went from 170 pounds to 270 pounds. She described afamily histor y of obesity and stated her mother had bariatric surgery. She saidknee pain/problems, soda pop, gra zing/snacking, and eating convenience foodshave contributed to her weight gains. She was vague in her report of how longshe has been considering surgery. She said her mother has been encouraging itfor years. She noted her mother had bariatric surgery about 20 years ago, lostweight, and now get s sick from eating too much/too quickly. Generally, Ms. Ramoshad fair insight and was a poor histo aron regarding her weight history.Ms. Ramos attended our program's nutrition class and met the bariatric surgeryteam at least 4 times. We advised her to attend the bariatric surgery supportgro up. She related some understanding of the dietary and activity changes thatwe routinely recommend p atients embark on preoperatively. Ms. Ramos related avague understanding of the risks, side effects, and potential benefits thatbariatric surgery might pose for her. However, she was unable to d escribe anyrisks or side effects of surgery without cueing. She said she understood thatdeath was a p ossible side effect. However, with other side effects (e.g., ofanesthesia), she stated ?I ?m not sure and don?t want to know.? She alsoexpressed clear uncertainty as to which surgical procedu re preferred andpresented little knowledge about any particular type(s) of bariatric surgery.She sta maria a she would have the procedure the surgeon recommends. Her motivationfor surgery includ es having less joint pain, more mobility, and doing moreactivities with her grandchildren.Ms. Ramos br ought her food journal to our first meeting and appears to begenerally implementing recommended tary changes. She described continuing todecrease snacking late in the day and increasing duration of exercise sessions.She reported exercising using [employer] 2-3 times/week for about 20 tierra tesper session. She did not bring her log to our second meeting and reported shehad nearly fille d the log.Relevant Medical HistoryMs. Richard?s medical history includes GERD, hypertension, torn men iscus, sleepapnea, osteoarthritis in knees, and history of peptic ulcer (> 20 years ago).Her surgica l history includes back surgery, knee surgery, knee scope, and kneereplacement. Her medicat ions include clonidine, pantoprazole,hydrochlorothiazide, omega 3, and multivitamins.Mental/Behavio ral/Psychopharmacological Treatment HistoryMs. Richard denied any history of psychotherapeutic or psychop harmacologicaltreatment. She reported drinking wine rarely, denied caffeine intake, and saidshe successfully quit smoking over four years ago. Ms. Ramos reported difficultyfalling and stayin g asleep, getting about 6 hours of sleep per night.Psychosocial HistoryMs. Richard described mov ing frequently as a child. She reported being born [place], [place] and moving [place], [place], then moved to [place], [place], [facility] due to her father?s employment. 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 She notedher father worked f or [employer] then as a cement corrugated fastener driver. She described her family asclose and supportive. She denied any h istory of trauma, neglect, or abuse.Education/Work: Ms. Ramos stated she started high school in [place], [place] butgraduated from a high school in [place], [place]. She described herself asa [employer] st [employer]ia who did not participate in school activities but was active [employer] activities. She den ied any behavioral problems, special education, orlearning disabilities. During high school she worke d at a [employer].She then worked at a [employer], and [employer].Most recently she worked at an [employer] for 14 years before beginningreceiving disability mariaelena efits about two years ago for back and kneeinjuries/pain.[facility] History: Ms. Ramos reported she has been twice and is notcurrently in an intimate relationship. She described having three children withher first , whom she was to for 13 years. She discussed herchildren are independent adults and her marriage ended because they wereincompatible. She described a second marriage of 13 years, which also ended indivorce because they were incompatible and he was ?money grubbing.?Risk/Protective Factors: Ms. Ramos lives alone . She stated her mother is herbiggest support and she will be staying at her parent?s house after kim geryduring recovery. She described a close friend, her brothers, and her daughteras other supports.Me ntal Status and PresentationMs. Ramos arrived on time, was dressed casually, and was groomed ap propriately.She appeared her stated age. She was oriented to person, place, and time andwas alert and attentive. She had normal, coherent speech and appropriate eyecontact. She presented as cooperative and pleasant. Her mood was euthymic.Broad range of affect was present. There was no ev idence of hallucinations ordelusions during our interviews. Her insight was fair. Her judgment was g ood.There is some evidence of mild cognitive impairment (see testing resultsbelow).Psychological Testing ResultsMs. Ramos was administered the [place] Multiphasic EiiidqwlbksSaqcryscl-3-Rszfo uctured Form (MMPI-2-RF). The MMPI-2-RF is a broadband measureof personality and psychopathol oglalit. Her responses to the items on the MMPI- 2yielded a profile that appears valid and interpreta ble. Her responses aregenerally consistent with those who present with gastrointestinal complaints( e.g., upset stomach) and an overall sense of physical debilitation/poor health(i.e., malaise). These symptoms are consistent with many bariatric patients.Ms. Ramos was also administered the Bonilla Co gnitive Assessment (MoCA). TheMoCA is a rapid screening instrument for mild cognitive dysfunction a crossseven domains. Ms. Ramos?s total score (22/30) is suggestive of mild cognitiveimpairment. Particu larly, Ms. Ramos?s responses evidenced difficulties in thedomains of visuoconstructional skills, executive functions, attention andconcentration, and memory/recall.Summary, Impre ssions, RecommendationsMs. Ramos is a 52-year-old female considering bariatric surgery. She repor maria a acurrent weight of 294 pounds at a height of 5' 8? with BMI > 44. She said herweight is down a bout 12 pounds since her first meeting with the bariatricsurgery team, which is one pound short of the bariatric team?s preoperativeweight loss goal for her. She exhibits some effort in implementing the dietaryand exercise changes we recommend to patients preoperatively. Her judgment andadherence to preoperative recommendations are good.However, Ms. Morales cognitive functioning is mildly impair ed. She has littleknowledge of her options for surgery and a vague grasp of risks/side effects.Her in sight is fair and she is a poor historian of her weight history. Testingresults suggested Ms. Ramos has mild cognitive impairment.In summary, due to Ms. Lesters mild cognitive impairment, additi onal remindersand education from the bariatric team may be warranted. In addition,maintaining exercis e and dietary changes recommended preoperatively may ensurea greater likelihood of maintaining th e behavior modifications necessary forsuccessful outcomes related to surgery. Therefore, this pat ient is consideredcleared for bariatric surgery at this time, if she is able to maintain herlifestyl e changes and meet her preoperative goals. Additional recommendationsinclude:? Con tinuing to make changes outlined in the bariatric program's behavioralcontract.? Having ongoing contact with the bariatric team for diet/exercise monitoringand feedback.? Attending postope rative support groups.? Seeking individual psychotherapeutic treatment if psychological symptomsari se.? Activities designed to improve cognitive functioning and memory.Ramila Blank.PsychologistSteven Miguel M.A.Psychology AssistantAllergies As of Date: 10/27/2017 Noted Fermín gutiérrez ReactionBEALICE 03/15/2013 7 - SwellingDate Reviewed: 10/13/2017Reviewed by: Francisca Roque) Ainger - Fully AssessedReason for Visit: Results [95] Cmt: Bariatric report and results for HGXA-0-FPCaynslv Visit Diagnosis:Eating disorder, unspecified [F50.9]Prescriptions as of 0 10/27/2017 Sig: HYDROCHLOROTHIAZIDE 25 MG TAB* Take 25 mg by mouth once maged* CLONIDINE HCL 0.2 MG T ABLET Take 0.2 mg by mouth twice da* MULTIVITAMIN TABLET Take 1 tablet by mouth once d* OMEGA 3 ORA L Take by mouth. THERAPEUTIC MULTIVITAMIN TABL* Take 1 tablet by mouth once d*Problem List As Of Da te 10/27/2017 Noted Resolved Arthritis of knee [M17.10] INVALID FOR* Meniscus tear [S83.209A] 11/2012 Tear of medial cartilage or meniscus of knee, c*INVALID FOR*06/06/2013Disposition: R eturn if symptoms worsen or fail to improve.Follow- up and Disposition History RecordedEncounter Maria Isabel mber: [id number] Status:Closed by [facility] on 11/10/17 thiamine (vitb1), whole blood on 2017-10-22 Thiamine (VitB1), Whole SEE BELOW Normal 2017 [facility] Blood System (00 000) Comment: Result Comment: Vitamin B1 W hole Bld 54 LReference range: 70 to 180Unit: nmol/L(NOTE)INTERPRETIVE INF ORMATION: Vitamin B1, Whole BloodThis assay measures the concentration o f thiamine diphosphate(TDP), the primary active form of vitamin B1. Approxim ately 90percent of vitamin B1 present in whole blood is TDP. Thiamine andth iamine monophosphate, which comprise the remaining 10 percent,are not measured.Test developed and characteristics determined by [employer]. See Compliance Statement B: VHT/CSPerformed by A [facility],[address] [place] [id number] bby.VHT, Westley Moe MD, Lab. DirectorPerforming Laboratory: Performed By: #### VB1WX ### #[place] [address] vitamin b12 on 2017 Cobalamin (Vitamin B12) 304 193-986 pg/mL Normal 2017 [facility] conc System (00 000) Comment: Performed By: #### B12 ####A [place] [address] us abd right upper quadrant on 2017-10-19 US ABD RIGHT UPPER Performed at [facility] 10-19-2017 [facility] APPROVED BY: [facility] MAE ARAUJO MD RIGHT UPPER ([id number]) QUADRANT ABDOMINAL ULTRASOUND CLINICAL INDICATION: Preoperative evaluation for bariatric surgery. COMPARISON: None FINDINGS:Real-time grayscale sonography of the right upper quadrant with supplemental Doppler interrogation. Liver: Liver demonstrates increased coarsened echotexture with decreased through transmission compatible with hepatic steatosis. No focal hepatic mass. Gallbladder/biliary system: There are no shadowing gallstones. There is no intrahepatic biliary ductal dilatation. The visualized proximal common bile duct is not dilated measuring 0.4 cm. Pancreas: Visualized portion of the pancreas is unremarkable. Right kidney: 10.4 cm in length No hydronephrosis or evidence of a mass or nephrolithiasis.. IMPRESSION:1. Hepatic steatosis. No hepatic mass identified. 2. No cholelithiasis or sonographic evidence of cholecystitis. No biliary dilation. progress on 2017-10 Protein mass conc HNO ID: [id number]: Normal 10-19-2017 [facility] Lilly (Intensive Care Ambulance Paramedic) ZenaidaService: Medical Center (none)Author Type: Nurse ([id number]) PractitionerType: Progress NotesFiled: 10/19/2017 10:57 AMNote Text:Received outside EGD, normal with no evidence of hiatal hernia. Biopsy wasnot performed, will need an testing for H pylori via stool sample.GISELLE Yañez mdrd gfr on 2017-10 GFR/1.73 sq M >60 >60mL/min/1.73m2 mL/min/{1.73_m2} Normal [facility] predicted among [facility] non-blacks MDRD (000 00) vol rate/area (S/P/Bld) Comment: Result Comment: If the patie nt is , multiply the result by 1.210. Performed By: #### GFR ####A [place] [address] hosp on 2017-10-19 HOSP Patient Update Normal 10-19-2017 Christy ibrahim ([facility]4) ---------RETA RAMOS ([id number]) 1965 F CHTDate Time Provider Department10/19/17 LILLY ESTEVEZ ([facility]) [facility] Medical During your visit today, we recorded the following information about you:DILCIA YañezC Center 10/19/2017 10:57 AM SignedRec eived outside EGD, normal with no evidence of hiatal hernia. Biopsy was (0 0000) notperformed, will need an t esting for H pylori via stool sample.Lilly Estevez NP-CAllergies As of Date: 10/19/2017 Noted Aller gy ReactionBEES 03/15/2013 7 - SwellingDate Reviewed: 10/13/2017Reviewed by: Francisca Roque) Aideysi - Fully AssessedReason for Visit: Received Outside Medical Records [3573] Cmt: EGDPrescriptions as of 10/19/2017 Sig: HYDROCHLOROTHIAZIDE 25 MG TAB* Take 25 mg by mouth once aicha l* CLONIDINE HCL 0.2 MG TABLET Take 0.2 mg by mouth twice da* MULTIVITAMIN TABLET Take 1 t ablet by mouth once d* OMEGA 3 ORAL Take by mouth. THERAPEUTIC MULTIVITAMIN TABL* Take 1 ta blet by mouth once d*Problem List As Of Date 10/19/2017 Noted Resolved Arthritis of knee [M17.10] I NVALID FOR* Meniscus tear [S83.209A] 06/06/2013 Tear of medial cartilage or meniscus of helen andino c*INVALID FOR*06/06/2013Encounter Number: [id number] Status:Closed by LILLY STILES on 10/19/17 hemogram on 2017-10 Erythrocyte distribution 18.9 11.7-14.4 % High 10-19 [facility] width Auto Ratio (RBC) System (49030) Comment: Performed By: #### CBC1 #### [address] [address] Hematocrit Auto Volume 37.9 34.1-44.9 % Normal 018 [facility] Fraction (Bld) Syste m (82250) Comment: Performed By: #### CBC1 #### [place] [address] Hemoglobin mass conc 11.3 11.2-15.7 g/dL Normal 8 [facility] (Bld) System (00 000) Comment: Performed By: #### CBC1 #### [place] [address] MCH Auto Entitic mass 25.0 25.6-32.2 pg Low 10-20-19 18 [facility] (RBC) System (00 000) Comment: Performed By: #### CBC1 #### [place] [address] MCHC Auto mass conc (RBC) 29.8 31.6-34.8 % Low 10-01 [facility] System (39729) Comment: Performed By: #### CBC1 #### [place] [address] MCV Auto Entitic volume 83.8 79.4-94.8 fl Normal 2017 [facility] (RBC) System (00 000) Comment: Performed By: #### CBC1 #### [place] [address] Platelet mean volume Auto 10.2 9.4-12.3 fl Normal 10-01 [facility] Entitic volume (Bld) System (23819) Comment: Performed By: #### CBC1 #### [place] [id number] Platelets Auto #/vol 340 182-369 thou/cmm Normal 8 [facility] (Bld) System (00 000) Comment: Performed By: #### CBC1 #### [place] [address] RBC Auto #/vol (Bld) 4.52 3.93-5.22 mil/cmm Normal 8 [facility] (00 000) Comment: Performed By: #### CBC1 #### [facility] [place] [address] RDW SD 57.6 36.4-46.3 fl High 10-19-2017 [facility] ([address]) Comment: Performed By: #### CBC1 #### [facility] [place] [address] WBC Auto #/vol (Bld) 7.19 3.98-10.04 thou/cmm Normal 10-20-19 18 [facility] (00 000) Comment: Performed By: #### CBC1 #### [place] [address] folate on 2017-10-01 9 Folate 18.20 3.10-17.50 ng/mL High 10-19-2017 [facility] ([address]648) Comment: Performed By: #### FOL ####A [place] [address] comprehensive panel on 2017-10-19 ALP enzyme act/vol 107 46-116 U/L Normal 10-19-2017 [facility] (73[address]) Comment: Performed By: #### P14 ####A [place] [address] Bilirubin mass conc 0.5 0.2-1.0 mg/dL Normal 10-19-2017 [facility] ([address]) Comment: Performed By: #### P14 ####A [place] [address] Protein mass conc 7.5 6.4-8.2 g/dL Normal 10-19-2017 [facility] (34622) Comment: Performed By: #### P14 ####A [place] [address] AST enzyme act/vol 25 9-37 U/L Normal 10-19-2017 [facility] (76461) Comment: Performed By: #### P14 ####A [facility] [place], [place] [address] Creatinine mass conc 0.88 0.51-0.95 mg/dL Normal 8 [facility] (00 000) Comment: Performed By: #### P14 ####A [facility] [place], [place] [address] ALT enzyme act/vol 32 12-78 U/L Normal 10-19-2017 [facility] (73763) Comment: Performed By: #### P14 ####A [address] [address] Albumin mass conc 3.6 3.4-5.0 g/dL Normal 10-19-2017 [facility] (82937) Comment: Performed By: #### P14 ####A [address] [address] Anion gap 3 molar conc 9 8-16 mmol/L Normal 018 [facility] (51431) Comment: Performed By: #### P14 ####A [address] [address] Calcium mass conc 9.6 8.5-10.1 mg/dL Normal 10-19-2017 [facility] (28926) Comment: Performed By: #### P14 ####A [address] [address] CO2 molar conc 31 21-32 mEq/L Normal 10-19-2017 [facility] ([address]154) Comment: Performed By: #### P14 ####A [address] [address] Glucose mass conc 99 70-99 mg/dL Normal 10-19-2017 [facility] [employer] [facility] (30336) Comment: Performed By: #### P14 ####A [address] [address] Urea nitrogen mass conc 14 7-18 mg/dL Normal 2017 [facility] (02156) Comment: Performed By: #### P14 ####A [address] [address] Chloride molar conc 102 98-107 mEq/L Normal 10-19-2017 [facility] (01450) Comment: Performed By: #### P14 ####A [facility] [place], [place] [address] Potassium molar conc 4.0 3.5-5.1 mEq/L Normal 8 [facility] (42626) Comment: Performed By: #### P14 ####A [facility] [place], [place] [address] Sodium molar conc 138 136-145 mEq/L Normal 10-19-2017 A [facility] ([address]750) Comment: Performed By: #### P14 ####A [address] [address] progress on 2017-10 Protein HNO ID: [id number]: Lilly (Intensive Care Ambulance Paramedic) Norm al 10-13-2017 [place] [facility] conc LaktashService: (none)Author Type: Nurse General PractitionerType: Progress NotesFiled: Medical 10/16/2017 1:20 PMNote Text:Pre-op Visit #: Center 4Weight: Wt 132.2 kg (291 lb 6.4 oz) BMI (93742) 47.75 kg/h7Qnv-ep Goal: 290Previous Encounter Weight: Last 2 Encounter Wt Readings: Date: Wt: 10/13/2017 132.2 kg (291 lb 6.4 oz) 09/23/2017 133.4 kg (294 lb 3.2 oz)HPI: Reta Ramos a 52 year old female for medical weight loss treatmentof her obesity related co morbidities. This individual presents forfourth preoperative visit, she does not have a diet requirement perinsurance. She does present with a weight loss and has brought a foodrecord for review she continues to demonstrate a good progression towardsher preoperative goals. Further subjective and objective data wasobtained by our dietitian and office today.We have been unable to obtain previous endoscopy report, we will make anadditional attempt, if we're unable to obtain this may need to proceedwith performing her own endoscopy given GERD, history of peptic ulcerdisease.PAST MEDICAL HISTORYDiagnosis Date- GERD (gastroesophageal reflux disease)- HTN (hypertension)- Hx of peptic ulcer >20 years ago- Meniscus tear left knee- SUSAN (obstructive sleep apnea)- Osteoarthritis of both kneesSocial:Social HistorySubstance Use Topics- Smoking status: Former Smoker Packs/day: 0.50 Years: 20.00 Types: Cigarettes Quit date: 07/06/2013- Smokeless tobacco: Never Used- Alcohol use Yes Comment: occasionallyMedications:Current Outpatient Prescriptions:cloNIDine HCl (CATAPRES) 0.2 mg tablet Take 0.2 mg by mouth once daily.pantoprazole DR (PROTONIX) 20 mg tablet Take 20 mg by mouth once daily.hydroCHLOROthiazide (HYDRODIURIL, ESIDRIX) 25 mg tablet Take 25 mg bymouth once daily.cloNIDine HCl (CATAPRES) 0.2 mg tablet Take 0.2 mg by mouth twice daily.pantoprazole DR (PROTONIX) 20 mg tablet Take 20 mg by mouth once daily.multivitamin tablet Take 1 tablet by mouth once daily.OMEGA-3S/DHA/EPA/FISH OIL (OMEGA 3 ORAL) Take by mouth.hydrochlorothiazide 25 mg tablet Take 1 tablet by mouth once daily.therapeutic multivitamin tablet Take 1 tablet by mouth once daily.No current facility-administered medications for this visit.ROS:General: Weight lossHEENT: Negative for frequent or significant headaches, No changes inhearing or vision, no nose bleeds or other nasal problems Cpap: Using itnightly.GI:No nausea, vomiting, or diarrhea and Positive for heart burn on PPIMuskuloskeletal: Negative for joint pain or swelling, back pain or musclepainSkin: Negative for lesions, rash, and itchingPsych: Negative for sleep disturbance, mood disorder and recentpsychosocial stressorsExam:BP 140/92 Pulse 92 Ht 5' 5.5 (1.66m) Wt 291 lb 6.4 oz (132.2kg) BMI 47.74 kg/(m2).GENERAL APPEARANCE: Pleasant, interacts appropriately and in no apparentdistress. Appropriately groomedABDOMEN: Obese, soft, non-tender, no masses, no palpable hernia.SKIN: Skin of normal texture, temperature withoutrashes/lesions/ulcerations.PSYCH: Oriented to person, place, time; appropriate insight and judgement.Appropriate affect.Diagnostic Tests Reviewed for Today's VisitNo new labsBEHAVIOR MODIFICATIONS: Partially metASSESSMENT/PLAN:1. Obesity, morbid, BMI 50 or higher (HCC) - ICD9: 278.01, ICD10: E66.01(primary diagnosis)-Continue ongoing efforts of following a regular balanced diet followed byregular, higher intensity exercise-Also received 10-15 minutes of dietary counseling in office today-Continue to bring food journal at every appointment2. Gastroesophageal reflux disease, esophagitis presence not specified -ICD9: 530.81, ICD10: K21.9- Multiple requests for EGD-If we are unable to obtain, will need to book EGD3. Obstructive sleep apnea - ICD9: 327.23, ICD10: G47.33Continue with sleep therapyFollow up with me/dietitian in 1 month review results scheduled next week,psychology recommendationsAmy KARIN Estevez-CTime spent counseling was > 50% total time or 30 minutes.This note was generated using voice recognition technology and may containgrammatical errors. Protein HNO ID: [id number]: Cinthia (Ross) Jairo layton 10-13-2017 Destindillan Whiteheadervice: (none)Author Type: General Registered DietitianType: Progress Medical NotesFiled: 10/16/2017 1:20 [facility] Text:Reta Lemos required months of (76519) supervised wt lossEducation Class: 09/17/17Pre-Op weight goal: 290#Education Class: Patient received instruction regarding healthy foodchoices and eating behaviors identified as optimal when preparing forsurgery, losing weight after surgery, and maintaining weight losslong-term. Patient also received instruction regarding the Bariatric FullLiquid diet following surgery and optimal post-operative high-proteinsupplement choices. Other topics discussed included healthy groceryshopping and food preparation.Pre-Surgical Preparation:Post-Class Quiz: 80% taken 09/23/17Behaviors Accomplished:Visit # Date: 10/13/2017Weight: 132.2 kg (291 lb 6.4 oz)Weight goal met: No: pt presents with a 3# wt loss since last appointment.Currently 14# below initial wt and 1# above GW.Behaviors that helped/hindered weight loss: HELPED: been working out withNewsana[employer] machine (15 minute intervals, 2x/day)Keeping journal dailyEating 3 meals/one snackChoose healthy foodsDaily multivitaminDrink between mealsSip beverages slowlyEat slowly,chew wellNo high fat/fast foodsD/c'd caffeinated, carbonated beveragesExercise: formal exercise 3x/week for 30 minutes of WII games (15 minuteintervals)- breaking a sweatWritten information provided and reviewed:Healthy plate/menusBehavior ChecklistJournalTracking protein intakeTracking liquid intakePt brought food journal to appointment today. Upon review of food journal, pt is meeting her protein goal on most daysand achieving her fluid goal daily--consuming 2, 32oz tumblers of water.Pt has increased her non-starchy vegetable consumption, encouraged to alsoinclude a protein source with these vegetables if choosing this as a mealin reference to post-op. Encouraged to also further increase exercise,with goal of 30 minutes daily. Using protein shake as mealreplacement/snack--choosing to mix with skim/1% milk and powdered peanutbutter-provided feedback of including milk with protein calculations andusing protein shake as meal replacement.Goals: Goals - continue to calculate protein intake- documenting all fluids consumed (goal of 64oz of fluids, and 64g protein) - formal exercise 4-5x/week for 30 minutes (chair exercises, WII games at a peppy pace) - include fiber and protein with all meals, make meals mimic Chandrakant Sellers RD, LD cnov on 2017-10-13 CNOV Office Visit Normal 10-13-2017 Kathie ([facility]) ---------RETA RAMOS ([id number]) 1965 F TDate Time Provider Department10/13/17 4:00 PM LILLY ESTEVEZ ([facility]) Medical [facility] During your visit to day, we recorded the following information about you: Pulse Blood [facility] pressure Weight Height 92/mi nute 140/92 132.[address], LD 10/16/2017 1:20 PM ([id number]) Jasper carlos d months of supervised wt lossEducation Class: 09/17/17Pre-Op weight goal: 290#Education Class: P yolette received instruction regarding healthy food choicesand eating behaviors identified as opti mal when preparing for surgery, losingweight after surgery, and maintaining weight loss long -term. Patient alsoreceived instruction regarding the Bariatric Full Liquid diet following surger yand optimal post-operative high-protein supplement choices. Other topicsdiscussed included hea lthy grocery shopping and food preparation.Pre-Surgical Preparation:Post-Class Quiz: 80% taken 09/23/17Behaviors Accomplished:Visit # Date: 10/13/2017Weight: 132.2 kg (291 lb 6.4 oz)[facility] goal met: No: pt presents with a 3# wt loss since last appointment.Currently 14# be low initial wt and 1# above GW.Behaviors that helped/hindered weight loss: HELPED: been working o ut with [employer] (15 minute intervals, 2x/day)Keeping journal dailyEating 3 meals/one [facility] [place] kChoose healthy foodsDaily multivitaminDrink between mealsSip beverages slowlyEat slowly,chew wellNo high fat/fast foodsD/c'd caffeinated, carbonated beveragesExercise: formal exercise 3x/week for 30 minutes of [employer] games (15 minuteintervals)- breaking a sweatWritten information provided and rev iewed:Healthy plate/menusBehavior ChecklistJournalTracking protein intakeTracking liquid intake Pt brought food journal to appointment today. Upon review of food journal, pt is meeting her p rotein goal on most days andachieving her fluid goal daily--consuming 2, 32oz tumblers of water. P t hasincreased her non-starchy vegetable consumption, encouraged to also include aprotein source with these vegetables if choosing this as a meal in reference topost-op. Encouraged to als o further increase exercise, with goal of 30 minutesdaily. Using protein shake as meal replac ement/snack--choosing to mix withskim/1% milk and powdered peanut butter-provided feedback of including milkwith protein calculations and using protein shake as meal replacement.Goals: Goals - c ontinue to calculate protein intake- documenting all fluids consumed (goal of 64oz of fluids, and 64g protein) - formal exercise 4-5x/week for 30 minutes (chair exercises, WII games at a pe ppy pace) - include fiber and protein with all meals, make meals mimic Chandrakant Sellers RD , GISELLE Story 10/16/2017 1:20 PM SignedPre- op Visit #: 4Weight: Wt 132.2 kg (291 lb 6.4 oz) BMI 47.75 kg/s3Woy-mn Goal: 290Previous Encounter Weight: Last 2 Encounter Wt Readings: Date: Wt: 10/13/2017 132.2 kg (291 lb 6.4 oz) 09/23/2017 133.4 kg (294 lb 3.2 oz)HPI: Reta Ramos a [age] year old female for medical weight loss treatment of herobesity related co morbidities. This individual presents for fourthpreoperative visit, she does not have a diet requirement per insuran ce. Avaoes present with a weight loss and has brought a food record for review shecontinues to nkechi leightrate a good progression towards her preoperative goals.Further subjective and objective stephen a was obtained by our dietitian and officetoday.We have been unable to obtain previous endoscopy re port, we will make anadditional attempt, if we're unable to obtain this may need to proceed withperf orming her own endoscopy given GERD, history of peptic ulcer disease.PAST MEDICAL HISTORY Diagnosis Date- GERD (gastroesophageal reflux disease)- HTN (hypertension)- Hx of peptic ulcer ANDgt;20 years ago- Meniscus tear left knee- SUSAN (obstructive sleep apnea)- Osteoarthritis of both kneesSocial:Social HistorySubstance Use Topics- Smoking status: Former Smoker Packs/ day: 0.50 Years: 20.00 Types: Cigarettes Quit date: 07/06/2013- Smokeless tobacco: Never Use d- Alcohol use Yes Comment: occasionallyMedications:Current Outpatient Prescriptions:cloNIDine HCl (CATAPRES) 0.2 mg tablet Take 0.2 mg by mouth once daily.pantoprazole DR (PROTONIX) 20 mg tablet T deanna 20 mg by mouth once daily.hydroCHLOROthiazide (HYDRODIURIL, ESIDRIX) 25 mg tablet Take 2 5 mg by mouthonce daily.cloNIDine HCl (CATAPRES) 0.2 mg tablet Take 0.2 mg by mouth twice daily.pant oprazole DR (PROTONIX) 20 mg tablet Take 20 mg by mouth once daily.multivitamin tablet Ta ke 1 tablet by mouth once daily.OMEGA- 3S/DHA/EPA/FISH OIL (OMEGA 3 ORAL) Take by mouth.hydrochl orothiazide 25 mg tablet Take 1 tablet by mouth once daily.therapeutic multivitamin tablet Take 1 t ablet by mouth once daily.No current facility- administered medications for this visit.ROS:General: Weight lossHEENT: Negative for frequent or significant headaches, No changes in hearing orvision, no nose bleeds or other nasal problems Cpap: Using it nightly.GI:No nausea, vomiting, or diarrhe a and Positive for heart burn on PPIMuskuloskeletal: Negative for joint pain or swelling, back pain or muscle painSkin: Negative for lesions, rash, and itchingPsych: Negative for sleep disturban ce, mood disorder and recent psychosocialstressorsExam:BP 140/92 Pulse 92 Ht 5' 5.5ANDquot; (1.66m) Wt 291 lb 6.4 oz (132.2kg) BMI 47.74 kg/(m2).GENERAL APPEARANCE: Pleasant, intera cts appropriately and in no apparentdistress. Appropriately groomedABDOMEN: Obese, soft, non-tender, no masses, no palpable hernia.SKIN: Skin of normal texture, temperature without rashes/lesions/ulcerations.PSYCH: Oriented to person, place, time; appropriate insight and judg ement.Appropriate affect.Diagnostic Tests Reviewed for Today's VisitNo new labsBEHAVIOR MODIFICATIO NS: Partially metASSESSMENT/PLAN:1. Obesity, morbid, BMI 50 or higher (HCC) - ICD9: 278.01, ICD10: E66.01(primary diagnosis)-Continue ongoing efforts of following a regular balanced diet follow ed byregular, higher intensity exercise-Also received 10-15 minutes of dietary counseling in office today-Continue to bring food journal at every appointment2. Gastroesophageal reflux dise ase, esophagitis presence not specified - ICD9:530.81, ICD10: K21.9- Multiple requests for EGD-If we are unable to obtain, will need to book EGD3. Obstructive sleep apnea - ICD9: 327.23, ICD10: G47.33Continue with sleep therapyFollow up with me/dietitian in 1 month review results sched ed next week,psychology recommendationsAmy DILCIA EstevezCTime spent counseling was ANDgt; 50% to severiano time or 30 minutes.This note was generated using voice recognition technology and may containgr ammatical errors.Referring Provider: SELF [[id number]]Allergies As of Date: 10/13/2017 Noted Allergy Lindsey ctionBEES 03/15/2013 7 - SwellingDate Reviewed: 10/13/2017Reviewed by: Johanna Roque) Maria Isabel - Fully A ssessoksanaReason for Visit: Established Patient [175]Primary Visit Diagnosis:Obesity, morbid, B IN 50 or higher ([facility]) [E66.01] Other Visit Diagnoses:Gastroesophageal reflux disease, esophagitis presence not specified [K21.9] Obstructive sleep apnea [G47.33]Prescriptions as of 10/13/2017 Sig: HYDROCHLOROTHIAZIDE 25 MG TAB* Take 25 mg by mouth once maged* CLONIDINE HCL 0.2 MG T ABLET Take 0.2 mg by mouth twice da* MULTIVITAMIN TABLET Take 1 tablet by mouth once d* OMEGA 3 ORA L Take by mouth. THERAPEUTIC MULTIVITAMIN TABL* Take 1 tablet by mouth once d*Problem List As Of Da te 10/13/2017 Noted Resolved Arthritis of knee [M17.10] INVALID FOR* Meniscus tear [S83.209A] 11/2012 Tear of medial cartilage or meniscus of knee, c*INVALID FOR*06/06/2013Medications Di scontinued During This Encounter cloNIDine HCl (CATAPRES) 0.2 mg tabl* 10/13/2017 Class: Historical Med Route: ORAL Sig: Take 0.2 mg by mouth once daily. Disc: Reason for discontinue is not on file. hydrochlorothiazide 25 mg tablet 0 11/29/2013 10/13/2017 Class: Historical Med Route: ORAL S ig: Take 1 tablet by mouth once daily. Disc: Reason for discontinue is not on file. pantoprazole DR (PROTONIX) 20 mg tab* 10/13/2017 Class: Historical Med Route: ORAL Sig: Take 20 mg by mouth once aicha ly. Disc: Reason for discontinue is not on file. pantoprazole DR (PROTONIX) 20 mg tab* 018 Class: Historical Med Route: ORAL Sig: Take 20 mg by mouth once daily. Disc: Reason for disc ontinue is not on file.Disposition: Return in about 6 weeks (around 11/24/2017) for PREVENTIVE MAINTENANCE COORDINATOR, Dietitian.Follow-up and Disposition Histo ry Recorded --------Questionnai re: AG GEN SURG BARIATRIC OH E-OP VISITSWEIGHT (pounds) (PRE OP) -> 291.4Encounter Number: [id number] Status:Closed by LILLY STILES on 10/01 01/18 progress on 2017-09 Protein mass conc HNO ID: [id number] Normal [facility] Author: [facility] Service: (none) (000 00) Author Type: Physician Type: Progress Notes Filed: 09/30/2017 1:54 PM Note Text: The patient completed the MMPI-2-RF. Kerrie Howard, PhD Protein mass conc HNO ID: [id number]: Normal 09-29-2017 [facility] (none)Author Type: ( [id number]) PhysicianType: Progress NotesFiled: 09/29/2017 3:22 PMNote Text:Bariatric Pre-op Interview - Session #1Patient: Reta Ramos : [birth year]TonyaTime: 2:15-3:10 pmCode: [id number] psych referral? DKMeeting with surgeon, which doctor:Yes and Comments: DaigleType of surgery? Unsure- will leave it up to the doctor. She said that hedoesn't know which procedure he recommends. Did not know much about eitherof the procedures.How long thinking? Vague- mom has been asking her about it for years.Since 2011 and began having knee problems.Decision Making Process: arthritis in her knees is so bad, and then fx herankle, now less active due to these issues. Weight gain within the last 3years. 3 knee surgeries since 2011.Talked with any postop patients: Mom had bariatric surgery 20 years ago.Lost the weight, but didn't change eating habits, now still gets sick-eating too fast and too much- vomiting. Mom now has a hernia in herstomach. Mom did not have the education classes.Motivation: less pain, more mobilityWeight Loss Goal: estimate 150 lbs., and this would be acceptable.Post op Expectations: be more active with grand kids, kayaking, ride hermotorcycle, pontoon boat, less pain and joint issues (knees). Help withback pain and ankle pain. Help with asthma.ActivityTues night info meeting NoFriday moring nutrition class YesMeeting with Nurse Practitioner: Yes and Comments: Lilly 4xMeeting with Header Set Up Operator: Yes and Comments: Shalini 4xInformed Consent/Risk AND Side effects:Risk-operative:- UnderstoodAnesthesia- I'm not sure and don't want to know. Pt had nausea as a sideeffect.Bleeding- understoodBlood Clots- doesn't know, don't want to fall into a deep sleep.Lung / Breathe- Cued? YesLeakage- DKInfection- understoodPostoperative:Dumpi ng- DK,Vitamins- Cued? yesNo liquids w/meals- Cued? YesObstruction- seemed to understand.Stretch Pouch- Cued? yesWeight Regain- Cued? yesPatient seems to have a poor understanding of the surgeries, the risks andside effects.Medical HistoryPAST MEDICAL HISTORYDiagnosis Date- GERD (gastroesophageal reflux disease)- HTN (hypertension)- Hx of peptic ulcer >20 years ago- Meniscus tear left knee- SUSAN (obstructive sleep apnea)- Osteoarthritis of both kneesPAST SURGICAL HISTORYProcedure Laterality Date- BACK SURGERY HX- KNEE LEFT OP SURGERY x3- KNEE SCOPE,MENISECTOMY,MED OR LAT 06/06/2013 Left knee arthroscopic partial medial meniscectomy- PAST SURGICAL HISTORY OF Low back- TOTAL KNEE REPLACEMENTAny history of Mental Health issues postop: Denied. Very upset that firstknee scope didn't help her.Current Medications/Vitamins/OTCCurre nt Outpatient Prescriptions:cloNIDine HCl (CATAPRES) 0.2 mg tablet Take 0.2 mg by mouth once daily.Disp: Rfl:pantoprazole DR (PROTONIX) 20 mg tablet Take 20 mg by mouth once daily.Disp: Rfl:hydroCHLOROthiazide (HYDRODIURIL, ESIDRIX) 25 mg tablet Take 25 mg bymouth once daily. Disp: Rfl:cloNIDine HCl (CATAPRES) 0.2 mg tablet Take 0.2 mg by mouth twice daily.Disp: Rfl:pantoprazole DR (PROTONIX) 20 mg tablet Take 20 mg by mouth once daily.Disp: Rfl:multivitamin tablet Take 1 tablet by mouth once daily. Disp: Rfl:OMEGA-3S/DHA/EPA/FISH OIL (OMEGA 3 ORAL) Take by mouth. Disp: Rfl:hydrochlorothiazide 25 mg tablet Take 1 tablet by mouth once daily. Disp:Rfl: 0therapeutic multivitamin tablet Take 1 tablet by mouth once daily. Disp:Rfl: 0No current facility-administered medications for this visit.stomach pill, blood pressure pill. Denied psych meds. [facility]- pain relief supplementNo current facility-administered medications for this visit.Weight HX:(General Story, Heaviest, Family Hx of obesity?, factors attributed toweight gain)Poor historian.Average in childhood. Age 16 -120 lbs. When and had kids- 140's.Last kid born - 150 lbs. Started seriously gaining weight 5 years ago whenhad 3 knee surgeries. Gained 100 lbs within a year- in 2012. Went from 170lbs to 270 lbs. Family history of obesity- mom had bariatric surgery.Factors attributed to weight gain- knee issues, pop, grazing, conveniencefoods- nachos.311 lbs. Heaviest at beginning of bariatric program, July 2017.-Current weight: There were no vitals taken for this visit. 294 lbs.-Current Height: There were no vitals taken for this visit. 5'8 454 BMI-Preoperative weight loss goal: 13 lbs, current progress? Down 11 lbstowards goal.Weight loss attempts:(commercial diets, fad diets, medications- Rx and OTC, most weight lostand method)Diet pills- unknown OTC, Emir pills, denied Rx. Denied any specific diets.Exercise- would work her weight off.Most weight lost: Gave up pop and sweet tea, lost 70 lbs. 15 years ago.Problematic Eating:(review PHQ ED questions, grazing, night eating syndrome, binge eating,purging, history of diagnosis of eating disorder or ED treatment)Grazing, night eating. Denied binging. Lots of pop drinking.Food Journal:Started: Yes,Brought to session: Yes,Complete? Yes ,3 meals? Yes, 80% of days,Issues/Concerns? No and trying to make changes, reducing snacking inevenings, started tracking protein.Exercise:Yes, Type Nintendo Wii, Frequency 2-3x a week for 20 minutes and Issues?:goal is to do 30 minutes, 3x a week.Mental Health History(dx, counseling, psychotropic meds, inpatient tx, SI, current providersand treatment frequency.)Denied psych meds. Denied counseling. Denied group. Deniedhospitalizations.Report ed that she was very stressed while raising kids and working 50hours.Family history of MH issues? deniedETOH/Drug UseUsed to drink a lot of beer before , quit. Currently, drinks wineoccasionally.Denied any tx or issuesFamily history of SA issues? Denied.-Caffeine?: TEA , SODA and OTHER energy drinks. Now on water only.-Nicotine?: None, quit 4 years ago.Mental Status/Behavioral ObservationsAppearance:casual ly dressed and appropriately groomedAttitude:open and cooperativeOrientation: i6Uzkziqddr/Concentration: no observed impairmentsMemory: immediate, recent and and remote-intactBehavior: unremarkableSpeech: hyperverbalMood: euthymicAffect: broad rangeThought Processes: logical and goal-directedThought Content: no evidence of delusionsPerceptual Disturbances: no evidence of perceptual disturbancesSuicide/Homicide: no evidence of suicidal/homicidal ideationInsight: poorJudgement: fairPlanMMPI - 2 and Continue 2nd session psychosocial history, consider MoCA.Dx: F50.9- Eating Disorder Jc Howard, PhDWith Roscoe Miguel MA advanced psychology practicum student. progress on 2017-09 Protein HNO ID: [id number]: Lilly (Intensive Care Ambulance Paramedic) Bharath live 09-23-2017 [place] [facility] LaktashService: (none)Author Type: Nurse General PractitionerType: Progress NotesFiled: Medical 09/30/2017 7:37 PMNote Text:Pre-op Visit #: Center 3Weight: Wt 133.4 kg (294 lb 3.2 oz) BMI (45459) 48.21 kg/r7Fij-hl Goal: 290Previous Encounter Weight: Last 2 Encounter Wt Readings: Date: Wt: 09/23/2017 133.4 kg (294 lb 3.2 oz) 08/20/2017 134.7 kg (297 lb)HPI: Reta Ramos a 52 year old female for medical weight loss treatmentof her obesity related co morbidities. This individual presents for thirdpreoperative visit, she does not have a direct requirement per insurance.She does present with an additional weight loss, she bring a food recordfor review and she is exercising. She has completed our preoperativeeducation class and has rescheduled her psychology appointments. Thus addi has achieved efforts towards preoperative agreement and expectations.Further subjective and objective data was obtained by our dietitian andoffice today.Individual, we also discussed the results of her upper GI, this isessentially normal. We have been unable to obtain outside EGD recordsdespite numerous attempts. She is also followed up with her primary careregarding her sleep therapy and is using nightly.PAST MEDICAL HISTORYDiagnosis Date- GERD (gastroesophageal reflux disease)- HTN (hypertension)- Hx of peptic ulcer >20 years ago- Meniscus tear left knee- SUSAN (obstructive sleep apnea)- Osteoarthritis of both kneesSocial:Social HistorySubstance Use Topics- Smoking status: Former Smoker Packs/day: 0.50 Years: 20.00 Types: Cigarettes Quit date: 07/06/2013- Smokeless tobacco: Never Used- Alcohol use Yes Comment: occasionallyMedications:Current Outpatient Prescriptions:cloNIDine HCl (CATAPRES) 0.2 mg tablet Take 0.2 mg by mouth once daily.pantoprazole DR (PROTONIX) 20 mg tablet Take 20 mg by mouth once daily.hydroCHLOROthiazide (HYDRODIURIL, ESIDRIX) 25 mg tablet Take 25 mg bymouth once daily.cloNIDine HCl (CATAPRES) 0.2 mg tablet Take 0.2 mg by mouth twice daily.pantoprazole DR (PROTONIX) 20 mg tablet Take 20 mg by mouth once daily.multivitamin tablet Take 1 tablet by mouth once daily.OMEGA-3S/DHA/EPA/FISH OIL (OMEGA 3 ORAL) Take by mouth.hydrochlorothiazide 25 mg tablet Take 1 tablet by mouth once daily.therapeutic multivitamin tablet Take 1 tablet by mouth once daily.No current facility-administered medications for this visit.ROS:General: Weight lossHEENT: Negative for frequent or significant headaches, No changes inhearing or vision, no nose bleeds or other nasal problems Cpap: Using itnightly.GI:No nausea, vomiting, or diarrhea and Positive for heart burn upper GInormal, attempting to obtain EGDMuskuloskeletal: Joint pain, she is using an kylp-myu-indyumw supplementto manage joint pain that is helpfulSkin: Negative for lesions, rash, and itchingPsych: Negative for sleep disturbance, mood disorder and recentpsychosocial stressors; is initiated consultation for psychosocialassessment.Exam:BP 160/90[pt did not take bp medication[ Pulse 113 Ht 5' 5.5 (1.66m) Wt 294 lb 3.2 oz (133.4kg) BMI 48.20 kg/(m2).GENERAL APPEARANCE: Pleasant, interacts appropriately and in no apparentdistress. Appropriately groomedSKIN: Skin of normal texture, temperature withoutrashes/lesions/ulcerations.PSYCH: Oriented to person, place, time; appropriate insight and judgement.Appropriate affect.Diagnostic Tests Reviewed for Today's VisitMost recent imagingBEHAVIOR MODIFICATIONS: Partially metASSESSMENT/PLAN:1. Obesity, morbid, BMI 50 or higher (HCC) - ICD9: 278.01, ICD10: E66.01(primary diagnosis)-Continue ongoing efforts of following a regular balanced diet followed byregular, higher intensity exercise-Also received 10-15 minutes of dietary counseling in office today-Continue to bring food journal at every appointment-Patient agreement reviewed- XR CHEST 2V FRONTAL/LAT- VITAMIN B12 BLOOD- VITAMIN B1/THIAMINE, WHOLE BLD- FOLATE SERUM- ECG COMPLETE W INTERPRETATION- COMP METABOLIC PANEL- CBC- US ABD RT UPPER QUADRANT2. Gastroesophageal reflux disease, esophagitis presence not specified -ICD9: 530.81, ICD10: K21.9- Obtain outside EGDUpper GI normal3. Obstructive sleep apnea - ICD9: 327.23, ICD10: G47.33Continue with sleep therapy- XR CHEST 22 FRONTAL/LAT- ECG COMPLETE W INTERPRETATIONDue to Medicare guidelines, she did not have insurance coverage for ironstudies, vitamin D, she did not pay for these out of pocket. Thus wecould not obtain these preoperativelyFollow up with me in our dietitian in 1 month for preoperative visits andto review the above planAmy YOLANDA Estevezime spent counseling was > 50% total time or 20 minutes.This note was generated using voice recognition technology and may containgrammatical errors. Protein HNO ID: [id number]: Cinthia Vernon) Jairo calin 09-23-2017 Destindillan kang Venturaervice: (none)Author Type: General Registered DietitianType: Progress Medical NotesFiled: 09/30/2017 7:37 PMNote Center Text:Reta Cordova Lilia required months of ([id number]) supervised wt lossEducation Class: 09/17/17Pre-Op weight goal: 290#Education Class: Patient received instruction regarding healthy foodchoices and eating behaviors identified as optimal when preparing forsurgery, losing weight after surgery, and maintaining weight losslong-term. Patient also received instruction regarding the Bariatric FullLiquid diet following surgery and optimal post-operative high-proteinsupplement choices. Other topics discussed included healthy groceryshopping and food preparation.Pre-Surgical Preparation:Post-Class Quiz: 80% taken today, 09/23/17Behaviors Accomplished:Visit # 3 Date: 09/23/2017Weight: 133.4 kg (294 lb 3.2 oz)Weight goal met: No: pt presents with a 3# wt loss since last encounter.Currently 11# below initial wt and 4# above GW.Behaviors that helped/hindered weight loss: HELPED: following portionsizes, weighing via scale and using cups, and eating 3x/day.Keeping journal dailyEating 3 meals/one snackChoose healthy foodsDaily multivitaminSip beverages slowlyEat slowly,chew wellNo high fat/fast foodsD/c'd caffeinated, carbonated beveragesExercise: formal exercise of chair exercises 3x/week 10-15 minutes-waiting after a meal to start sippingWritten information provided and reviewed:Healthy plate/menusBehavior ChecklistJournalTracking protein intakePt brought food journal to appointment today. Upon review of food journal, pt has made efforts of calculating dailyprotein/fluid intake. Provided further guidance with use of front of foodjournal for reference--to be further reviewed at next encounter w/ dailyfluid intake when documented. Pt considering alternative methods forformal, planned exercise such as WII games- did review engaging in atleast 10 minute intervals at a peppy pace with achieving goal per below.To increase satiety and in reference to post-op, provided encouragement ofadding fiber with each meal (non-starchy vegetables, whole grain, fruit).Will provide further feedback at next appointment with all calculationspresent.Goals: Goals - continue to calculate protein intake- documenting all fluids consumed (goal of 64oz of fluids, and 64g protein) - formal exercise 4-5x/week for 30 minutes (chair exercises, WII games at a peppy pace) - include fiber with all meals - add fruit to protein shake, increase non-starchy vegetables w/ meals (broccoli, green beans)Cinthia Sellers RD, LD cnov on 2017-09-23 CNOV Office Visit Normal 09-23-2017 Kathie (AGGENS[facility]) ---------RETA RAMOS ([id number]) 1965 F C HTDate Time Provider Department09/23/17 3:30 PM LILLY ESTEVEZ (MACHINE STRAP BUCKLER) [facility] M edical During your visit today, we recorded the following information about you: Pulse Blood pressure Weight Cente r Height 113/minute 160/90 133 .4 kg [address], LD 09/30/2017 7:37 PM Jasper Cordova (0000 0) Aminta required months of sup ervised wt lossEducation Class: 09/17/17Pre-Op weight goal: 290#Education Class: Patient received inst ruction regarding healthy food choicesand eating behaviors identified as optimal when preparing for s urgery, losingweight after surgery, and maintaining weight loss long-term. Patient alsoreceived instruc tion regarding the Bariatric Full Liquid diet following surgeryand optimal post-operative high-protein supplement choices. Other topicsdiscussed included healthy grocery shopping and food preparation.Pre-Kim gical Preparation:Post-Class Quiz: 80% taken today, 09/23/17Behaviors Accomplished:Visit # 3 Date: 09/23/2017Weight: 133.4 kg (294 lb 3.2 oz)Weight goal met: No: pt presents with a 3# wt loss since last encounter.Currently 11# below initial wt and 4# above GW.Behaviors that helped/hindered weight loss: HELPED: following portion sizes,weighing via scale and using cups, and eating 3x/day.Keeping journa l dailyEating 3 meals/one snackChoose healthy foodsDaily multivitaminSip beverages slowlyEat slowly,c hew wellNo high fat/fast foodsD/c'd caffeinated, carbonated beveragesExercise: formal ex ercise of chair exercises 3x/week 10-15 minutes- waiting after a meal to start sippingWritten informa tion provided and reviewed:Healthy plate/menusBehavior ChecklistJournalTracking pro tein intakePt brought food journal to appointment today. Upon review of food journal, pt has made ef forts of calculating dailyprotein/fluid intake. Provided further guidance with use of front of foodjou rnal for reference--to be further reviewed at next encounter w/ daily fluidintake when documented. Pt considering alternative methods for formal, plannedexercise such as WII games- did review engaging i n at least 10 minute intervalsat a peppy pace with achieving goal per below. To increase satiety a nd inreference to post-op, provided encouragement of adding fiber with each meal(non-starchy vegetables, whole grain, fruit). Will provide further feedback atnext appointment with all calculations present.Goaminata ls: Goals - continue to calculate protein intake- documenting all fluids consumed (goal of 64oz of fl uids, and 64g protein) - formal exercise 4-5x/week for 30 minutes (chair exercises, WII games at a pe ppy pace) - include fiber with all meals - add fruit to protein shake, increase non-starchy vegetab les w/ meals (broccoli, green beans)Cinthia Sellers RD, Pilar Estevez PREVENTIVE MAINTENANCE COORDINATOR-C 09/23/2017 3:51 PM Ashley dPlease continue to review your before surgery goals.GISELLE Yañez 09/30/2017 7:37 PM SignedPre- op Visit #: 3Weight: Wt 133.4 kg (294 lb 3.2 oz) BMI 48.21 kg/d6Xym-ul Goal: 290Previous Encounter Weight: Last 2 Encounter Wt Readings: Date: Wt: 09/23/2017 133.4 kg (294 lb 3.2 oz) 08/20/2017 134.7 kg (297 lb)HPI: Reta Ramos a 52 year old female for medical weight loss treatment of herobesity rela maria a co morbidities. This individual presents for thirdpreoperative visit, she does not have a direct r equirement per insurance. Shedoes present with an additional weight loss, she bring a food record for reviewand she is exercising. She has completed our preoperative education class andhas rescheduled her psychology appointments. Thus far she has achieved effortstowards preoperative agreement and e xpectations. Further subjective andobjective data was obtained by our dietitian and office today.I ndividual, we also discussed the results of her upper GI, this is essentiallynormal. We have b libby unable to obtain outside EGD records despite numerousattempts. She is also followed up with her pr imary care regarding her sleeptherapy and is using nightly.PAST MEDICAL HISTORYDiagnosis Date- GERD (gastroesophageal reflux disease)- HTN (hypertension)- Hx of peptic ulcer ANDgt;20 years ago- Meniscus tear left knee- SUSAN (obstructive sleep apnea)- Osteoarthritis of both kneesSocial:Social HistorySu bstance Use Topics- Smoking status: Former Smoker Packs/day: 0.50 Years: 20.00 Types: Cigarettes Quit date: 07/06/2013- Smokeless tobacco: Never Used- Alcohol use Yes Comment: occasionallyMedications:Curr ent Outpatient Prescriptions:cloNIDine HCl (CATAPRES) 0.2 mg tablet Take 0.2 mg by mouth once daily.p antoprazole DR (PROTONIX) 20 mg tablet Take 20 mg by mouth once daily.hydroCHLOROthiazide (H YDRODIURIL, ESIDRIX) 25 mg tablet Take 25 mg by mouthonce daily.cloNIDine HCl (CATAPRES) 0.2 mg tablet Take 0.2 mg by mouth twice daily.pantoprazole DR (PROTONIX) 20 mg tablet Take 20 mg by mouth once daily.multivita min tablet Take 1 tablet by mouth once daily.OMEGA-3S/DHA/EPA/FISH OIL (OMEGA 3 ORAL) Take by mouth.hydrochlorothiazide 25 mg tablet Take 1 tablet by mouth once daily.t herapeutic multivitamin tablet Take 1 tablet by mouth once daily.No current facility-administered medica tions for this visit.ROS:General: Weight lossHEENT: Negative for frequent or significant headaches, No changes in hearing orvision, no nose bleeds or other nasal problems Cpap: Using it nightly.GI:No nause a, vomiting, or diarrhea and Positive for heart burn upper GInormal, attempting to obtain EGDMusk uloskeletal: Joint pain, she is using an fnwy-dwc-plbbeuf supplement tomanage joint pain that is helpfulSkin: Negative for lesions, rash, and itchingPsych: Negative for sleep disturbance, mood diso rder and recent psychosocialstressors; is initiated consultation for psychosocial assessment.Exam :BP 160/90[pt did not take bp medication[ Pulse 113 Ht 5' 5.5ANDquot; (1.66m) Wt 294 lb 3.2 oz (1 33.4kg) BMI 48.20 kg/(m2).GENERAL APPEARANCE: Pleasant, interacts appropriately and in no appa rentdistress. Appropriately groomedSKIN: Skin of normal texture, temperature without rashes/l esions/ulcerations.PSYCH: Oriented to person, place, time; appropriate insight and judgement.Approp riate affect.Diagnostic Tests Reviewed for Today's VisitMost recent imagingBEHAVIOR MODIFICATION S: Partially metASSESSMENT/PLAN:1. Obesity, morbid, BMI 50 or higher (HCC) - ICD9: 278.01, ICD10: E66.0 1(primary diagnosis)-Continue ongoing efforts of following a regular balanced diet followed byreg ular, higher intensity exercise-Also received 10-15 minutes of dietary counseling in office today-C ontinue to bring food journal at every appointment- Patient agreement reviewed- XR CHEST 2V FRONTA L/LAT- VITAMIN B12 BLOOD- VITAMIN B1/THIAMINE, WHOLE BLD- FOLATE SERUM- ECG COMPLETE W INTERPRETATION- C OMP METABOLIC PANEL- CBC- US ABD RT UPPER QUADRANT2. Gastroesophageal reflux disease, esophagitis presence not specified - ICD9:530.81, ICD10: K21.9- Obtain outside EGDUpper GI normal3. Obstructive slee p apnea - ICD9: 327.23, ICD10: G47.33Continue with sleep therapy- XR CHEST 22 FRONTAL/LAT- ECG COMPLETE W INTERPRETATIONDue to Medicare guidelines, she did not have insurance coverage for ironstudies, vi tamin D, she did not pay for these out of pocket. Thus we could notobtain these preoperativelyFollow u p with me in our dietitian in 1 month for preoperative visits and toreview the above planAmy Jairo Estevez P-CTime spent counseling was ANDgt; 50% total time or 20 minutes.This note was generated using voice re cognition technology and may containgrammatical errors.Referring Provider: SELF [[id number]]Allergies As of Da te: 09/23/2017 Noted Allergy ReactionBEES 03/15/2013 7 - SwellingDate Reviewed: 09/23/2017Reviewed by: Johanna Roque) Ainger - Fully AssessedReason for Visit: Established Patient [175]Primary Visit D iagnosis:Obesity, morbid, BMI 50 or higher ([facility]) [E66.01] Other Visit Diagnoses:Gastroesophageal r eflux disease, esophagitis presence not specified [K21.9] Obstructive sleep apnea [G47.33]Order(s):XR CH EST 2V FRONTAL/LAT [[id number]] Order #: [id number] FUTURE VITAMIN B12 BLOOD [SQB12] Order #: [id number] FUTURE VITAMIN B1/THIAMINE, WHOLE BLD [RJT2UHR] Order #: [id number] FUTURE FOLATE SERUM [SQSERFOL] Orde r #: [id number] FUTURE ECG COMPLETE W INTERPRETATION [ECG01] Order #: [id number] COMP METABOLIC PA BENNIE [SQCMP] Order #: [id number] FUTURE CBC [SQCBC] Order #: [id number] FUTURE US ABD RT UPPER QUADR ANT [[id number]] Order #: [id number] FUTUREPrescriptions as of 09/23/2017 Sig: CLONIDINE HCL 0.2 MG TABLET Take 0.2 mg by mouth once aicha* PANTOPRAZOLE 20 MG TABLET,DEL* Take 20 mg by mouth once maged* HYDROCHLORO THIAZIDE 25 MG TAB* Take 25 mg by mouth once maged* CLONIDINE HCL 0.2 MG TABLET Take 0.2 mg by mouth twice da* PANTOPRAZOLE 20 MG TABLET,DEL* Take 20 mg by mouth once maged* MULTIVITAMIN TABLET Take 1 t ablet by mouth once d* OMEGA 3 ORAL Take by mouth. HYDROCHLOROTHIAZIDE 25 MG TAB* Take 1 tablet by donna th once d* THERAPEUTIC MULTIVITAMIN TABL* Take 1 tablet by mouth once d*Problem List As Of Date Noted Resolved Arthritis of knee [M17.10] INVALID FOR* Meniscus tear [S83.209A] 06/06/2013 T ear of medial cartilage or meniscus of knee, c*INVALID FOR*06/06/2013 Other instructions from your clini shelia: Please continue to review your before surgery goals.Disposition: Return in about 1 month (marshall und 10/21/2017) for PREVENTIVE MAINTENANCE COORDINATOR, Dietitian.Follow-up and Disposition History Recorded --------Questionnaire: AG GEN SURG BARIATRIC PRE-OP VISITSWEIGHT (pounds) (PRE OP) -> 294.2Encounter Number: [id number] Status:Closed by LILLY STILES on 09/04 03/20 progress on 2017-09 Protein mass HNO ID: [id number]: Lilly (Sonido) Jairo layton 09-17-2017 [facility] Ryan: (none)Author Type: Medical Nurse PractitionerType: Progress Center NotesFiled: 09/17/2017 10:55 AMNote ([id number]) Text:Date: September 17, 2017 Time: 10:54 AMName: Reta Belle COMPLAINT:This is a 52 year old female with morbid obesity who presents to clinicfor bariatric surgery and is completing educational class today.HISTORY OF PRESENTING ILLNESS:This individual [facility] and presents to complete preoperativerequirements.Reta Ramos has been seen monthly for medically supervisedweight loss and is being evaluated on their lifestyle modifications.Deniesany difficulty hearing presentation. Denies any difficulty visualizingeducational materialsPHYSICAL EXAM:General Appearance: Well appearing, alert, in no acute distress,well-hydrated, well nourished.MSK: Ambulated to seat without difficulty.PSYCH: Speech clear, asked questions throughout the class. Thoughtprocesses intact, judgment and insight intact.IMPRESSION:Reta Ramos is a 52 year old female with the following diagnosis andco-morbidities:Morbid (severe) obesityPLAN:Counseling and surgical care coordination was addressed during thiseducational class. This individual watched an instructional video 30minutes in length discussing preoperative requirements, medications,psychology, prevention measures. Pathophysiology and SIde effects ofsurgery were discussed. Medications to be stopped 2 weeks and 1 weekprior to surgery were discussed. Discharge instructions for a 2 weekperiod in terms of dietary restrictions, activity requirements,medications, follow-up were reviewed. Vitamins and supplements werereviewed with samples provided. Additionally, signs and symptoms ofvitamin deficiencies reviewed. Postoperative medication management wasexplained. Received prevention education in terms of DVT prophylaxis andpneumonia prophylaxis. Patient was educated on signs and symptomsrequiring immediate and/or emergent medical attention. This patient alsoreceived dietary education.This individual received an educational binder with handouts reviewing thefor mentioned class materials. At the end of class, Reta Ramos wasprovided time to answer questions. Denies any further questions orconcerns.Of the 3 hours total time in direct patient contact, greater than 50% ofthe time was spent in counseling and/or coordinating care.GISELLE Yañez on 2017-09-17 DOREENOV Office Visit Normal 09-17-2017 Kathie (AGGENS4) ---------RETA RAMOS TASHA ([id number]) 1965 F TDate Time Provider Department09/17/17 9:30 AM LILLY ESTEVEZ (SONIDO) Medical [facility]4 During your visit to day, we recorded the following information about you:GISELLE Yañez Center 09/17/2017 10:55 AM SignedDat e: September 17, 2017 Time: 10:54 AMName: Reta Belle ([id number]) COMPLAINT:This is a 52 year old female with morbid obesity who presents to clinic forbariatric surgery and is completing ed ucational class today.HISTORY OF PRESENTING ILLNESS:This individual is currently enrolled in the [facility] persuingweight loss surgery and presents to complete preoperative requir ements.Reta Clay has been seen monthly for medically supervised weight loss and is beingeval uated on their lifestyle modifications.Denies any difficulty hearingpresentation. Denies any difficulty visualizing educational materialsPHYSICAL EXAM:General Appearance: Well appearing, alert, in no acute distress, well-hydrated,well nourished.MSK: Ambulated to seat without di fficulty.PSYCH: Speech clear, asked questions throughout the class. Thought processesintact, amanda gment and insight intact.IMPRESSION:Reta Ramos is a 52 year old female with the following di agnosis andco-morbidities:Morbid (severe) obesityPLAN:Counseling and surgical care coordination w as addressed during this educationalclass. This individual watched an instructional video 30 minut es in lengthdiscussing preoperative requirements, medications, psychology, preventionmeasur es. Pathophysiology and SIde effects of surgery were discussed.Medications to be stopped 2 weeks and 1 week prior to surgery were discussed.Discharge instructions for a 2 week pe riod in terms of dietary restrictions,activity requirements, medications, follow-up were reviewed. Vitamins andsupplements were reviewed with samples provided. Additionally, signs andsympt oms of vitamin deficiencies reviewed. Postoperative medication managementwas explained. Rec eived prevention education in terms of DVT prophylaxis andpneumonia prophylaxis. Patient was edu cated on signs and symptoms requiringimmediate and/or emergent medical attention. This patient also receiveddietary education.This individual received an educational binder with handouts reviewi ng the formentioned class materials. At the end of class, Reta Ramos was provided timeto answer q uestions. Denies any further questions or concerns.Of the 3 hours total time in direct patient conta ct, greater than 50% of thetime was spent in counseling and/or coordinating care.Nikolay Weiss NP-C 09/17/2017 10:55 AM SignedReview educational materials discussed in class and provided in your binderComplete supervised weight loss as scheduledReferring Provider: SELF [[id number]]Allergies As of Date: 09/17/2017 Noted Allergy ReactionBEES 03/15/2013 7 - SwellingDate Reviewed: 08/20/2017Reviewed by: Liberty Wynn - Fully AssessedPrimary Visit Diagnosis:Obesity, mor bid, BMI 50 or higher ([facility]) [E66.01]Order(s):GROUP HEALTH EDUCATION [[id number]] Order #: [id number]: 1Prescriptions as of 09/17/2017 Sig: CLONIDINE HCL 0.2 MG TABLET Take 0.2 mg by mouth once da i* PANTOPRAZOLE 20 MG TABLET,DEL* Take 20 mg by mouth once maged* HYDROCHLOROTHIAZIDE 25 MG TA B* Take 25 mg by mouth once maged* CLONIDINE HCL 0.2 MG TABLET Take 0.2 mg by mouth twice da* PANTOP RAZOLE 20 MG TABLET,DEL* Take 20 mg by mouth once maged* MULTIVITAMIN TABLET Take 1 tablet by mout h once d* OMEGA 3 ORAL Take by mouth. HYDROCHLOROTHIAZIDE 25 MG TAB* Take 1 tablet by mouth once d* THERAPEUTIC MULTIVITAMIN TABL* Take 1 tablet by mouth once d*Problem List As Of Date 09/17/2017 N oted Resolved Arthritis of knee [M17.10] INVALID FOR* Meniscus tear [S83.209A] 06/06/2013 Tear o f medial cartilage or meniscus of knee, c*INVALID FOR*06/06/2013 Other instructions from your clini shelia: Review educational materials discussed in class and provided in your binder Complete supervi sed weight loss as scheduledEncounter Number: [id number] Status:Closed by LILLY STILES on 09/17/17 ugi w/air w/o kub incl esophagus on 2017-09-03 UGI W/AIR W/O KUB Performed at [facility] 09-03-2017 [facility] APPROVED BY: [facility] Rogelio Wright MD EXAM ([id number]) TITLE:UGI W/AIR W/O KUB INCL ESOPHAGUS DATE:09/03/2017 07:40 COMPARISON: None. CLINICAL INDICATION/HISTORY: Preoperative bariatric surgery TECHNIQUE: UGI W/AIR W/O KUB INCL ESOPHAGUS. Study was performed by the psychiatric technician assistant. 34 total images and 1 minute of fluoroscopic time provided by radiology FINDINGS: Barium passed through the esophagus without obstruction, reflux or herniation. Stomach filled to its normal contour without filling defect mass. No evidence of gastric outlet obstruction. Duodenal bulb and sweep are normal. No active ulcer crater seen. IMPRESSION: Unremarkable upper GI series progress on 2017-08 Protein mass HNO ID: [id number]: Liberty marks 08-20-2017 Destin pearl DaigleService: (none)Author Type: General PhysicianType: Progress NotesFiled: Medical 08/20/2017 4:19 PMNote Text:BARIATRIC Center SURGERY NEW PATIENT CONSULTATION ([id number]) HISTORY AND PHYSICALDate: August 20, 2017 Time: 2:44 PMName: Reta Doe is a 51 year old female with morbid obesity (Body mass index is 48.67kg/(m2).) who presents to clinic for consideration of bariatric surgery.She has suffered with weight problems most of her life. She has triednumerous weight loss programs in the past with minimal success. She wouldeither lose minimal weight or would gain back any weight she did lose. Shehas numerous motivations for considering bariatric surgery includingweight loss, control of obesity-related co-morbidities, quality of lifeimprovement and overall longevity.She is present with her mother who remotely had an open Savage-en-Y gastricbypass and has had some issues postoperatively. Patient does have ahistory of acid reflux. No symptoms while on 20 mg of Protonix. Whileoff her medication she has almost daily symptoms. No dysphagia orregurgitation. However, she complains of chronic gas bloating andabdominal distention with no obvious cause. [place]. She is unsure if they did a biopsyfor H. pylori. She has a history of previous peptic ulcer disease. Nomelena or bright red blood per rectum. She does have hypertension. Shehas obstructive sleep apnea but is noncompliant with her CPAP. She doeshave severe osteoarthritis of the knees and takes tramadol. Currently nottaking NSAIDs but has in the past. No History of jaundice.PAST MEDICAL HISTORY:PAST MEDICAL HISTORYDiagnosis Date- GERD (gastroesophageal reflux disease)- HTN (hypertension)- Hx of peptic ulcer >20 years ago- Meniscus tear left knee- SUSAN (obstructive sleep apnea)- Osteoarthritis of both kneesPAST SURGICAL HISTORY:PAST SURGICAL HISTORYProcedure Laterality Date- BACK SURGERY HX- KNEE LEFT OP SURGERY x3- KNEE SCOPE,MENISECTOMY,MED OR LAT 06/06/2013 Left knee arthroscopic partial medial meniscectomy- PAST SURGICAL HISTORY OF Low back- TOTAL KNEE REPLACEMENTFAMILY HISTORY:FAMILY HISTORYProblem Relation Age of Onset- Hypertension Mother- Hypertension Father- Lipids Father- Heart FatherSOCIAL HISTORY:Social HistorySubstance Use Topics- Smoking status: Former Smoker Packs/day: 0.50 Years: 20.00 Types: Cigarettes Quit date: 07/06/2013- Smokeless tobacco: Never Used- Alcohol use Yes Comment: occasionallyMEDICATIONS:Prior to Admission Medications:cloNIDine HCl (CATAPRES) 0.2 mg tablet Take 0.2 mg by mouth once daily.pantoprazole DR (PROTONIX) 20 mg tablet Take 20 mg by mouth once daily.hydroCHLOROthiazide (HYDRODIURIL, ESIDRIX) 25 mg tablet Take 25 mg bymouth once daily.cloNIDine HCl (CATAPRES) 0.2 mg tablet Take 0.2 mg by mouth twice daily.pantoprazole DR (PROTONIX) 20 mg tablet Take 20 mg by mouth once daily.multivitamin tablet Take 1 tablet by mouth once daily.OMEGA-3S/DHA/EPA/FISH OIL (OMEGA 3 ORAL) Take by mouth.hydrochlorothiazide 25 mg tablet Take 1 tablet by mouth once daily.therapeutic multivitamin tablet Take 1 tablet by mouth once daily.ALLERGIES:ALLERGIESAllergen Reactions- Bees SwellingPHYSICAL EXAM:BP 156/84 Pulse 93 Ht 166.4 cm (5' 5.5) Wt 134.7 kg (297 lb) BMI48.67 kg/g8Dyvwrkv appearance: Morbidly obese, appears stated age, no obviousdistress, present with her motherSkin: warm, no jaundice, good turgor pressure, mucous membranes moistHead and neck: No scleral icterusHeart: regular rhythm and rateAbdomen: soft, non-tender, no masses, no organomegaly, unable to palpatethe liver or splenic edge, non-tympanic to percussion, no abdominal wallincisions or hernias noted. Negative Oro's sign. No peritonealfindingsExtremities: Normal exam of the extremities, no pitting edemaIMPRESSION:Reta Ramos is a 51 year old female with the following diagnosis andco-morbidities:Body mass index is 48.67 kg/(m2)., hypertension, obstructive sleep apneafor which she is noncompliant with CPAP but understands importance, GERD,osteoarthritis of the kneesDiagnosis noted as above, no additional diagnosis at this time.This patient does meet the criteria for a surgical weight loss procedureaccording to NIH guidelines.Today we spent over 60 minutes in the office with her in direct patientcontact. Over 50% of that time was spent in counseling and coordinatingher care. She was given the opportunity to ask numerous questions and Iused various visual aids to explain the anatomy related to the variousbariatric surgical options.PLAN:The plan of treatment for Reta Ramos is to continue with theconsultations and tests ordered today in hopes of qualifying forpre-operative clearance for bariatric surgery.Patient is interested in: Sleeve gastrectomy versus Savage-en-Y gastricbypass. Given her symptoms, I would like to perform an upper GI and gether outside EGD and biopsy results before deciding on a procedure.Needs EGD - booked todayUGI/Ultrasound of RUQ before surgeryContinue with psychology and nutrition assessmentRhina Montoya Laparoscopic and Bariatric Surgery Protein mass HNO ID: [id number]: Cinthia (Ross) Normal 08-20-2017 Kathie Whiteheadervice: (none)Author Type: General Registered DietitianType: Progress Medical NotesFiled: 08/20/2017 4:19 PMNote Center Text:Reta Lemos required months of ([id number]) supervised wt lossEducation Class: TBDPre-Op weight goal: 290#Education Class: Patient received instruction regarding healthy foodchoices and eating behaviors identified as optimal when preparing forsurgery, losing weight after surgery, and maintaining weight losslong-term. Patient also received instruction regarding the Bariatric FullLiquid diet following surgery and optimal post-operative high-proteinsupplement choices. Other topics discussed included healthy groceryshopping and food preparation.Pre-Surgical Preparation:Post-Class Quiz: N/Bautista Accomplished:Visit # 2 Date: 08/20/2017Weight: 134.7 kg (297 lb)Weight goal met: No: pt presents with an 8# wt loss. Currently 8# belowinitial wt and 7# above GW.Behaviors that helped/hindered weight loss: HELPED: following mealguidelines provided, does report having the stomach bug over this pastmonth.Eating 3 meals/one snackDaily multivitaminSip beverages slowlyEat slowly,chew wellNo high fat/fast foodsD/c'd caffeinated, carbonated beveragesExercise: has been implementing chair exercisesWritten information provided and reviewed:Healthy plate/menusBehavior ChecklistJournalSick sheet h/oProtein sheet h/oPt brought food journal to appointment today. Pt's mother, Disha, present during appointment. Pt reports following mealguidelines from initial patient information, did review to still continueto document in food journal. She also states consuming 64oz of fluids perday: instructed to start documenting that intake. Planning to startimplementing formal exercise schedule, supported this and reviewed goalbelow. Will plan to start calculating protein/fluid intake during nextappointment and give education class quiz.Goals: Goals - attend education class, bring any questions to next appointment - can do [employer] Triple Zero iraqi yogurt - formal exercise 3x/week for 15 minutes (chair exercises) - journal food intake daily- if following meal guidelines, document foods consumed in jounal- add fluids (goal of 64oz)Cinthia Sellers RD, LD cnov on 2017-08-20 CNOV Office Visit Normal 08-20-2017 Kathie (AGGENS4) ---------RETA RAMOS ([id number]) 1965 F CHTDate Time Provider Department08/20/17 2:00 PM LIBERTY WYNN Medica l During your visit today, we recorded the following information about you: Pulse Blood pressure Center Weight Height 93/minute 156/ 84 134.7 kg [address], LD 08/20/2017 4:19 PM ([id number]) Jasper carlos d months of supervised wt lossEducation Class: TBDPre-Op weight goal: 290#Education Class: Patient received instruction regarding healthy food choicesand eating behaviors identified as opti mal when preparing for surgery, losingweight after surgery, and maintaining weight loss long -term. Patient alsoreceived instruction regarding the Bariatric Full Liquid diet following surger yand optimal post-operative high-protein supplement choices. Other topicsdiscussed included hea lthy grocery shopping and food preparation.Pre-Surgical Preparation:Post-Class Quiz: N/Bautista Accomplished:Visit # 2 Date: 08/20/2017Weight: 134.7 kg (297 lb)Weight goal met: No: pt presents with an 8# wt loss. Currently 8# below initialwt and 7# above GW.Behaviors that help ed/hindered weight loss: HELPED: following meal guidelinesprovided, does report having the ANDqu ot;stomach bugANDquot; over this past month.Eating 3 meals/one snackDaily multivitaminSip b everages slowlyEat slowly,chew wellNo high fat/fast foodsD/c'd caffeinated, carbonated beve ragesExercise: has been implementing chair exercisesWritten information provided and reviewed:Health y plate/menusBehavior ChecklistJournalSick sheet h/oProtein sheet h/oPt brought food journal to appo intment today. Pt's mother, Disha, present during appointment. Pt reports following mealguidel bhavik from initial patient information, did review to still continue todocument in food journal. She also states consuming 64oz of fluids per day:instructed to start documenting that intake. Samreen nning to start implementingformal exercise schedule, supported this and reviewed goal below. Will pl an tostart calculating protein/fluid intake during next appointment and giveeducation class quiz.Demetrice ls: Goals - attend education class, bring any questions to next appointment - can do [employer] T riple Zero iraqi yogurt - formal exercise 3x/week for 15 minutes (chair exercises) - journal food in take daily- if following meal guidelines, document foods consumed in jounal- add fluids (goal of 64oz)Cinthia Sellers RD, Bhavin Wynn MD 08/20/2017 2:44 PM SignedPlease continue to foc us on good diet and exercise choices, every pound youlose before surgery makes a huge differe nce!Liberty Wynn MD 08/20/2017 4:19 PM SignedBARIATRIC SURGERY NEW PATIENT CONSULTATION HISTORY AND PHYSICALDate: August 20, 2017 Time: 2:44 PMName: Reta Doe is a 51 year old female with morbid obesity (Body mass index is 48.67kg/(m2).) who presents to clinic for consideration of bariatric surgery.She has suffered with weight problems most of her life. She has tried numerous weight loss programs in the past with minimal success. She would either loseminimal weight or would gain back any weight she did lose. She has numerousmotivations for considering bariatric surger y including weight loss, control ofobesity-related co-morbidities, quality of life improvement and overalllongevity.She is present with her mother who remotely had an open Savage-en-Y gastricbypass and has had some issues postoperatively. Patient does have a history ofacid reflux. No symptoms w hile on 20 mg of Protonix. While off her medicationshe has almost daily symptoms. No dysphagia or re gurgitation. However, shecomplains of chronic gas bloating and abdominal distention with no obviouscause. She recently had an EGD in [facility] and was told she had 2 polyps. Sheis unsure if did a biopsy for H. pylori. She has a history of previouspeptic ulcer disease. No melena or bright red blood per rectum. She does havehypertension. She has obstructive sleep apnea but is noncompliant with herCPAP. She does have severe osteoarthritis of the knees and takes tramadol .Currently not taking NSAIDs but has in the past. No History of jaundice.PAST MEDICAL HISTOR Y:PAST MEDICAL HISTORYDiagnosis Date- GERD (gastroesophageal reflux disease)- HTN (hypertension) - Hx of peptic ulcer ANDgt;20 years ago- Meniscus tear left knee- USSAN (obstructive sleep apnea)- O steoarthritis of both kneesPAST SURGICAL HISTORY:PAST SURGICAL HISTORYProcedure Laterality Date- BACK SURGERY HX- KNEE LEFT OP SURGERY x3- KNEE SCOPE,MENISECTOMY,MED OR LAT 06/06/2013 Left knee arthroscopic partial medial meniscectomy- PAST SURGICAL HISTORY OF Low back - TOTAL KNEE REPLACEMENTFAMILY HISTORY:FAMILY HISTORYProblem Relation Age of Onset- Hypertension M other- Hypertension Father- Lipids Father- Heart FatherSOCIAL HISTORY:Social HistorySubsta nce Use Topics- Smoking status: Former Smoker Packs/day: 0.50 Years: 20.00 Types: Cigarettes Quit date: 07/06/2013- Smokeless tobacco: Never Used- Alcohol use Yes Comment: occasionallyMEDICAT IONS:Prior to Admission Medications:cloNIDine HCl (CATAPRES) 0.2 mg tablet Take 0.2 mg by mouth once daily.pantoprazole DR (PROTONIX) 20 mg tablet Take 20 mg by mouth once daily.hydroCHLOROthiazi de (HYDRODIURIL, ESIDRIX) 25 mg tablet Take 25 mg by mouthonce daily.cloNIDine HCl (CATAPRE S) 0.2 mg tablet Take 0.2 mg by mouth twice daily.pantoprazole DR (PROTONIX) 20 mg tablet Take 20 mg by mouth once daily.multivitamin tablet Take 1 tablet by mouth once daily.OMEGA-3S/DHA/EPA/ FISH OIL (OMEGA 3 ORAL) Take by mouth.hydrochlorothiazide 25 mg tablet Take 1 tablet by mouth once daily.therapeutic multivitamin tablet Take 1 tablet by mouth once daily.ALLERGIES:ALLERGIESAll ergen Reactions- Bees SwellingPHYSICAL EXAM:BP 156/84 Pulse 93 Ht 166.4 cm (5' 5.5ANDquot;) Wt 134.7 kg (297 lb) BMI48.67 kg/j0Bymvnvg appearance: Morbidly obese, appears stated age, n o obvious distress,present with her motherSkin: warm, no jaundice, good turgor pressure, mucous memb ranes moistHead and neck: No scleral icterusHeart: regular rhythm and rateAbdomen: soft, non-tende r, no masses, no organomegaly, unable to palpate theliver or splenic edge, non-tympanic to percus ba, no abdominal wall incisionsor hernias noted. Negative Oro's sign. No peritoneal findings Extremities: Normal exam of the extremities, no pitting edemaIMPRESSION:Reta Ramos is a 51 year old female with the following diagnosis andco-morbidities:Body mass index is 48.67 kg/(m2)., hypertension, obstructive sleep apnea forwhich she is noncompliant with CPA P but understands importance, GERD,osteoarthritis of the kneesDiagnosis noted as above, no additiona l diagnosis at this time.This patient does meet the criteria for a surgical weight loss procedu reaccording to NIH guidelines.Today we spent over 60 minutes in the office with her in direct pa tientcontact. Over 50% of that time was spent in counseling and coordinating hercare. She wa s given the opportunity to ask numerous questions and I usedvarious visual aids to explain the a natomy related to the various bariatricsurgical options.PLAN:The plan of treatment for Reta Mcconnell y is to continue with the consultationsand tests ordered today in hopes of qualifying for pre-operat ivett clearance forbariatric surgery.Patient is interested in: Sleeve gastrectomy versus Savage-en-Y gastric bypass.Given her symptoms, I would like to perform an upper GI and get her outside EGDand b iopsy results before deciding on a procedure.Needs EGD - booked todayUGI/Ultrasound of RUQ b efore surgeryContinue with psychology and nutrition assessmentLiberty Wynn MDAdvcoy Laparosco pic and Bariatric SurgeryReferring Provider: SELF [[id number]]Allergies As of Date: 08/20/2017 Noted Aller gy ReactionBEES 03/15/2013 7 - SwellingDate Reviewed: 08/20/2017Reviewed by: Liberty Wynn - Fully AssessedReason for Visit: Consult [173] Cmt: seen amyPrimary Visit Diagnosis:BMI 45.0-49.9, adult (HCC) [Z68.4 2] Other Visit Diagnosis:Gastroesophageal r eflux disease, esophagitis presence not specified [K21.9]Order(s):XR UPPER GI ROUTINE DOUBLE CONT RAST/AIR [1795091] Order #: [id number] FUTUREPrescriptions as of 08/20/2017 Sig: CLONIDINE HC L 0.2 MG TABLET Take 0.2 mg by mouth once aicha* PANTOPRAZOLE 20 MG TABLET,DEL* Take 20 mg by mo uth once maged* HYDROCHLOROTHIAZIDE 25 MG TAB* Take 25 mg by mouth once maged* CLONIDINE HCL 0.2 MG T ABLET Take 0.2 mg by mouth twice da* PANTOPRAZOLE 20 MG TABLET,DEL* Take 20 mg by mouth once aicha l* MULTIVITAMIN TABLET Take 1 tablet by mouth once d* OMEGA 3 ORAL Take by mouth. HYDROCHLOROTHIAZID E 25 MG TAB* Take 1 tablet by mouth once d* THERAPEUTIC MULTIVITAMIN TABL* Take 1 tablet by mouth once d*Problem List As Of Date 08/20/2017 Noted Resolved Arthritis of knee [M17.10] INVALID FOR* M eniscus tear [S83.209A] 06/06/2013 Tear of medial cartilage or meniscus of knee, c*INVALID FOR*06/06 Other instructions from your clinician: Please continue to focus on good diet and exercise ch oices, every pound you lose before surgery makes a huge difference!Disposition: Diannau rn in about 4 weeks (around 09/17/2017) for Lilly.Follow-up and Disposition History Recorded --------Questionnai re: AG GEN SURG BARIATRIC [place] E-OP VISITSWEIGHT (pounds) (PRE OP) -> 297Letter Text Liberty Wynn MDGens [facility] [address] AveATwo [facility] Psych[facility] [address]Ahrs: [phone] Xbyxpqm 2017 Klaudia Ashley [id number] [place], [place] [address]Nrpvp: [phone]: [phone]: Reta Cordova SwapnilOB: [address]Dear Dr[address] Klaudia Ashley, DO,I have had the opportunity to evaluate your patient, Reta Ramos, on08/20/17. Please see a copy of my impression and recommendations below.IM PRESSION:Reta Ramos is a 51 year old female with the following diagnosis andco-morbidities: Body mass index is 48.67 kg/(m2)., hypertension, obstructive sleep apnea forwhich she is noncom pliant with CPAP but understands importance, GERD,osteoarthritis of the kneesDiagnosis noted as abov e, no additional diagnosis at this time.This patient does meet the criteria for a surgical weig ht loss procedureaccording to NIH guidelines.Today we spent over 60 minutes in the office with h er in direct patientcontact. Over 50% of that time was spent in counseling and coordinating hercare. She was given the opportunity to ask numerous questions and I usedvarious visual aids to e xplain the anatomy related to the various bariatricsurgical options.PLAN:The plan of seferino atment for Reta Ramos is to continue with the consultationsand tests ordered today in hopes of qu alifying for pre-operative clearancefor bariatric surgery.Patient is interested in: Sleeve gastre ctomy versus Savage-en-Y gastric bypass.Given her symptoms, I would like to perform an upper GI and g et her outsideEGD and biopsy results before deciding on a procedure.Needs EGD - booked todayUGI/Ultrasound of RUQ before surgeryContinue with psychology and nutrition assessmentRuth mejia for allowing me to participate in the care of your patient. If youwould like additional det ails of our visit, please contact our office.Sincerely,Liberty Wynn MD(Electronically signed to expedite mailing) Status:Closed by LIBERTY WYNN MD on 08/20/17 progress on 2017-07 Protein HNO ID: [id number]: Lilly (Intensive Care Ambulance Paramedic) Bharath live 07-22-2017 [place]in mass pearl Suareze: (none)Author Type: Nurse General PractitionerType: Progress NotesFiled: Medical 07/24/2017 1:42 PMNote Text:BARIATRIC Center SURGERY NEW PATIENT CONSULTATION HISTORY ([id number]) AND PHYSICALDate: July 22, 2017 Time: 1:57 PMName: Reta Belle COMPLAINT:This is a 51 year old female with morbid obesity (Body mass index is 49.92kg/(m2).) who presents to clinic for consideration of bariatric surgery.HISTORY OF PRESENTING ILLNESS:Reta Ramos presents today for consideration of bariatric surgery. Agustina Ramos has suffered from weight problems majority of her lifespan and hasnumerous attempts at weight loss. However, she does feel that undergoinga total knee replacement and osteoarthritis of bilateral knees were eventsthat led to significant weight gain. She also has a family history ofobesity, in fact her mother who is present this encounter had a Idyp-pd-Mduptoe 20 years ago. This individual is has lost weight through diet andexercise attempts, however ultimately regained this weight. Furthermore,she wishes to be more active but is aware her severe obesity andosteoarthritis are significantly limiting.Today we reviewed her medical history at length. She is not currentlytreated for type 2 diabetes or hyperlipidemia. However she is treated forhypertension and she does have a significant family history of type 2diabetes. Specific to her she has significant ostial arthritis ofbilateral knees has artery had a total knee replacement, and continues torequire a cane to ambulate. She will take NSAIDs 4-5 times per month forjoint pain. She does feel some of her medications cause reflux symptoms.She had a recent endoscopy, she is unsure of the results of this. Lizeth is reporting a remote history of a peptic ulcer with stigmata ofbleeding. Lastly, she has seen a heating fixture tender for concerns withbreathing in the setting of obstructive sleep apnea, smoking history,obesity however no restrictive lung disease was identified to be tooobesity hypoventilation syndrome. However, she is not currently adherentwith sleep therapy and she is unable to follow up with her pulmonologistdue to outstanding bills.PAST MEDICAL HISTORYDiagnosis Date- GERD (gastroesophageal reflux disease)- Hx of peptic ulcer >20 years ago- Meniscus tear left knee- SUSAN (obstructive sleep apnea)- Osteoarthritis of both kneesPAST SURGICAL HISTORYProcedure Laterality Date- KNEE SCOPE,MENISECTOMY,MED OR LAT 06/06/2013 Left knee arthroscopic partial medial meniscectomy- PAST SURGICAL HISTORY OF Low back- TOTAL KNEE REPLACEMENTFAMILY HISTORYProblem Relation Age of Onset- Hypertension Mother- Hypertension Father- Lipids Father- Heart FatherSOCIAL HISTORY:Social HistorySubstance Use Topics- Smoking status: Former Smoker Packs/day: 0.50 Years: 20.00 Types: Cigarettes Quit date: 07/06/2013- Smokeless tobacco: Never Used- Alcohol use Yes Comment: occasionallyMEDICATIONS:Prior to Admission Medications:cloNIDine HCl (CATAPRES) 0.2 mg tablet Take 0.2 mg by mouth once daily.pantoprazole DR (PROTONIX) 20 mg tablet Take 20 mg by mouth once daily.hydrochlorothiazide 25 mg tablet Take 1 tablet by mouth once daily.therapeutic multivitamin tablet Take 1 tablet by mouth once daily.ALLERGIESAllergen Reactions- Bees SwellingREVIEW OF SYSTEMS:GENERAL: Weight gainHEENT: Negative for frequent or significant headaches, No changes inhearing or vision, no nose bleeds or other nasal problemsNECK: Negative for lumps, goiter, pain and significant neck swellingRESPIRATORY: Negative for cough, hemoptysis, wheezing, COPD, dyspnea orshortness of breath, She's had extensive evaluation by a pulmonologistthat confirmed no evidence of emphysema, chronic bronchitis. She doeshave obstructive sleep apnea. She does not adherent with her sleeptherapy.CARDIOVASCULAR: Negative for chest pain, leg swelling, CHF or palpitationsGI: No nausea, vomiting, or diarrhea, Negative for abdominal discomfort,blood in stools or black stools, change in bowel habit, nausea, vomitingand Positive for heart burn She will clearance reflux symptoms off of PPItherapy. She is reporting a recent endoscopy.: No history of dysuria, frequency or incontinenceMUSCULOSKELETAL: See HPISKIN: Negative for lesions, rash, and itchingPSYCH: Negative for sleep disturbance, mood disorder and recentpsychosocial stressorsHEMATOLOGY/LYMPHOLOGY: Negative for prolonged bleeding, bruising easily orswollen nodesENDOCRINE: Negative for cold or heat intolerance, polyuria, polydipsia andgoiterPHYSICAL EXAM:BP 159/91 Pulse 89 Ht 166.4 cm (5' 5.5) Wt (!) 138.2 kg (304 lb 9.6oz) BMI 49.92 kg/s2MOSBWHK APPEARANCE: Pleasant, interacts appropriately and in no apparentdistress. Appropriately groomedENT: Oral mucosa pink without lesions/ulcerations, dentition intact.NECK: Supple without lymphadenopathy or thyromegalyABDOMEN: Obese, soft, non-tender, no masses, no palpable hernia.MUSCULOSKELETAL: No joint deformities, good range of motion spine, hips,knees, and ankles.SKIN: Skin of normal texture, temperature withoutrashes/lesions/ulcerations.PSYCH: Oriented to person, place, time; appropriate insight and judgement.Appropriate affect.Diagnostic Tests Reviewed for Today's VisitNo new labsIMPRESSION AND PLAN:Reta Ramos is a 51 year old female with the following diagnosis andco-morbidities:Body mass index is 49.92 kg/(m2).This patient does meet the criteria for a surgical weight loss procedureaccording to NIH guidelines. Time was spent discussing both surgicaloptions as well asshe was provided with estimations in terms of percentexcess weight loss. Procedure she is interested in: Sleeve gastrectomyversus Savage-en-Y bypass.? Reta Ramos does not have a diet requirement, however we will see hermonthly to evaluate objective goals. Therefore, Reta Ramos was given a15 pound weight loss goal, received 10-15 minutes of dietary counseling inoffice today, as well as was scheduled for our shared education class. Shewill also need to be cleared by psychology.1. Obesity, morbid, BMI 50 or higher (HCC) - ICD9: 278.01, ICD10: E66.01(primary diagnosis)2. Obstructive sleep apnea - ICD9: 327.23, ICD10: G47.33-Requested recent records, I did advise her to have her sleep therapyturned over to her primary care provider3. Gastroesophageal reflux disease without esophagitis - ICD9: 530.81,ICD10: K21.9- Requested recent EGD4. Cigarette nicotine dependence in remission - ICD9: V15.82, ICD10:F17.211Commended on cessationAmy Joana Estevez the 60 minutes spent with the patient, >50% counseling and orcoordinating care.This note was generated using voice recognition technology and may containgrammatical errors. Protein HNO ID: [id number]: Cinthia layton 07-22-2017 Kathie Carmonaice: (none)Author Type: General Registered DietitianType: Progress Medical NotesFiled: 07/24/2017 1:42 [facility] Text:[facility] Kathie Castanon - ([id number]) Bariatric DepartmentNew Patient Nutritional AssessmentReta Arriolathropometrics:51 year old female BP 159/91 Pulse 89 Ht 166.4 cm (5' 5.5) Wt (!)138.2 kg (304 lb 9.6 oz) BMI 49.92 kg/d1Nuoiuxm Body Fat: 45%Weight History:Previous weight loss attempts: walking, discontinued intake of soda/tea,Luz diet, Nutrisystem, Weight WatchersLife events that have contributed to weight gain: increased painassociated w/ kneePersonal weight loss goals: 180#Medical History:PAST MEDICAL HISTORYDiagnosis Date- Meniscus tear left knee- SUSAN (obstructive sleep apnea)- Unspecified essential hypertension Essential hypertensionDietary Intake:24 hour recall provided Breakfast- 1 orange and cream of wheat Lunch- tuna salad Dinner- hamburger Snacks- nothinLimitations of keeping a food record: noneFood Allergies: noneFrequency of fried foods: 1-2 times per monthFrequency of high sugar foods: 1-2 times per monthFrequency of snack-type foods: 1-2 times per weekFrequency of caffeine/carbonated beverages: 1-2 times per weekFrequency of dining out meals: 1-2 times per monthPhysical Activity:Physical conditions limiting activity: knee pain and difficulty w/breathingCurrent activity: no formal initiatedPre-op goal weight: 290#Written information provided and reviewed:Healthy plate/menusBehavior ChecklistJournal%BF GraphChair exercises Pt's mother, Disha, present during appointment today. Pt reportsconsuming 2/3 meals on most day, usually skips lunch. Did review highprotein, convenient meal items for this meal. Does like milk, currentlydrinking whole milk--further rationale provided for skim or 1%. Providedchair exercises d/t pt report knee pain--encouraged formal, plannedexercise. Will give education class quiz during next appointment and startdaily complete MVI.Goals: Goals - formal exercise 3x/week for 15 minutes (chair exercises) - Have 3 meals a day - protein source with every meal, do not skip lunch - journal daily and bring to all appointmentsCinthia Sellers RD, LD [place] on 2017-07-22 [place] Office Visit Normal 07-22-2017 Kathie (AGGENS4) ---------RETA RAMOS ([id number]) 1965 FDate Time Provider Zkxbtoderz32/20/17 1:30 PM LILLY ESTEVEZ ([facility]) Medical AGGENS4 During your visit to day, we recorded the following information about you: Pulse Blood Center pressure Weight Height 89/mi nute 159/91 138.[address], LD 07/24/2017 1:42 ([id number]) PM SignedAs[facility]ab[facility] Ak dillan [facility] - Bariatric DepartmentNew Patient Nutritional AssessmentTrevonjanessa Cordova Anirudhacrolyn pometrics:51 year old female BP 159/91 Pulse 89 Ht 166.4 cm (5' 5.5ANDquot;) Wt (!)138.2 k g (304 lb 9.6 oz) BMI 49.92 kg/f8Jqpycbi Body Fat: 45%Weight History:Previous weight loss attempts: walking, discontinued intake of soda/tea, Adkinsdiet, Nutrisystem, Weight Watchers Life events that have contributed to weight gain: increased pain associated w/kneePersonal we ight loss goals: 180#Medical History:PAST MEDICAL HISTORYDiagnosis Date- Meniscus tear left kne e- SUSAN (obstructive sleep apnea)- Unspecified essential hypertension Essential hypertensionDietar y Intake:24 hour recall provided Breakfast- 1 orange and cream of wheat Lunch- tuna salad Dinner- agudelo mburger Snacks- nothinLimitations of keeping a food record: noneFood Allergies: noneFrequency of fried foods: 1-2 times per monthFrequency of high sugar foods: 1-2 times per monthFrequency of snack-type foods: 1-2 times per weekFrequency of caffeine/carbonated beverages: 1-2 times per wee kFrequency of dining out meals: 1-2 times per monthPhysical Activity:Physical conditions limiting activity: knee pain and difficulty w/ breathingCurrent activity: no formal initiate dPre-op goal weight: 290#Written information provided and reviewed:Healthy plate/menus Behavior ChecklistJournal%BF GraphChair exercises Pt's mother, Disha, present during appointment t bucky. Pt reports consuming 2/3meals on most day, usually skips lunch. Did review high protein, con venientmeal items for this meal. Does like milk, currently drinking wholemilk--further rationale provided for skim or 1%. Provided chair exercises d/tpt report knee pain--encouraged formal, samreen nned exercise. Will give educationclass quiz during next appointment and start daily complete MVI .Goals: Goals - formal exercise 3x/week for 15 minutes (chair exercises) - Have 3 meals a day - protein source with every meal, do not skip lunch - journal daily and bring to all appointment Linda Sellers RD, GISELLE Story 07/22/2017 1:57 PM SignedWelcome to the first s tep towards your new healthy life! As we discussed,please review the bariatric Center program and contract. Review with thehandouts that were given to an explained to include; the plate diet, cliff djournal, follow-up schedule, bariatric patient flowsheet, and support groupflyer with upcoming stephen es. Please incorporate efforts at eating 3 meals perday with each meal lasting approximately the lo nger than 30 minutes. Anythinglonger would be considered ANDquot;grazingANDquot;. Als o, as recommended inincorporating exercise 4-5 times per week for 30 minutes. This will help youa chieve your presurgical weight loss goal.Please attend educational class scheduled. Please sche dule your appointmentwith our psychologist for your evaluation as directed. Please complete an yadditional orders and/or testing as directed by your provider. You will see usmonthly for medic ally supervised weight loss and we'll progress you towardssurgery.GISELLE Yañez 07/24/2017 1:4 2 PM SignedBARIATRIC SURGERY NEW PATIENT CONSULTATION HISTORY AND PHYSICALDate: July 22 017 Time: 1:57 PMName: Reta BradshawJAVIER COMPLAINT:This is a 51 year old female with morbid obesi ty (Body mass index is 49.92kg/(m2).) who presents to clinic for consideration of bariatric s urgery.HISTORY OF PRESENTING ILLNESS:Reta Ramos presents today for consideration of bariatric s urgery. Reta Clay has suffered from weight problems majority of her lifespan and has numerousatt empts at weight loss. However, she does feel that undergoing a total kneereplacement and osteoart hritis of bilateral knees were events that led tosignificant weight gain. She also has a family history of obesity, in fact hermmckinley who is present this encounter had a Savage-en-Y bypass 20 years ago. Thisindividual is has lost weight through diet and exercise attempts, howeverultimately regained this weight. Furthermore, she wishes to be more active butis aware her severe obesity and osteoarthritis are significantly limiting.Today we reviewed her medical history at length. S he is not currently treatedfor type 2 diabetes or hyperlipidemia. However she is treated for h ypertensionand she does have a significant family history of type 2 diabetes. Specific toher she has significant ostial arthritis of bilateral knees has artery had atotal knee replacement, and continues to require a cane to ambulate. She willtake NSAIDs 4-5 times per month for joint pain. Hi andino does feel some of hermedications cause reflux symptoms. She had a recent endoscopy, she is uns ureof the results of this. She also is reporting a remote history of a pepticulcer with stigmata of bleeding. Lastly, she has seen a heating fixture tender forconcerns with breathing in the setting of obstructive sleep apnea, smokinghistory, obesity however no restrictive lung disease was identified to be tooobesity hypoventilation syndrome. However, she is not currently adherent withsleep therapy and she is unable to follow up with her heating fixture tender due tooutstanding bills.PAST MED ICAL HISTORYDiagnosis Date- GERD (gastroesophageal reflux disease)- Hx of peptic ulcer ANDgt;20 yea rs ago- Meniscus tear left knee- SUSAN (obstructive sleep apnea)- Osteoarthritis of both knees PAST SURGICAL HISTORYProcedure Laterality Date- KNEE SCOPE,MENISECTOMY,MED OR LAT 06/06/2013 Left knee arthroscopic partial medial meniscectomy- PAST SURGICAL HISTORY OF Low back - TOTAL KNEE REPLACEMENTFAMILY HISTORYProblem Relation Age of Onset- Hypertension Mother- Hyperte nsion Father- Lipids Father- Heart FatherSOCIAL HISTORY:Social HistorySubstance Use Topics- Smoking status: Former Smoker Packs/day: 0.50 Years: 20.00 Types: Cigarettes Quit date: 013- Smokeless tobacco: Never Used- Alcohol use Yes Comment: occasionallyMEDICATIONS:Prio r to Admission Medications:cloNIDine HCl (CATAPRES) 0.2 mg tablet Take 0.2 mg by mouth once daily.p antoprazole DR (PROTONIX) 20 mg tablet Take 20 mg by mouth once daily.hydrochlorothiazide 25 mg tablet Take 1 tablet by mouth once daily.therapeutic multivitamin tablet Take 1 tablet by mout h once daily.ALLERGIESAllergen Reactions- Bees SwellingREVIEW OF SYSTEMS:GENERAL: Weight gain HEENT: Negative for frequent or significant headaches, No changes in hearing orvision, no nose bl eeds or other nasal problemsNECK: Negative for lumps, goiter, pain and significant neck swellingRES PIRATORY: Negative for cough, hemoptysis, wheezing, COPD, dyspnea orshortness of breath, She's had extensive evaluation by a heating fixture tender thatconfirmed no evidence of emphysema, chronic bronch itis. She does haveobstructive sleep apnea. She does not adherent with her sleep therapy.CARDIOVASC ULAR: Negative for chest pain, leg swelling, CHF or palpitationsGI: No nausea, vomiting, or diarrhe a, Negative for abdominal discomfort, bloodin stools or black stools, change in bowel habit, nause a, vomiting and Positivefor heart burn She will clearance reflux symptoms off of PPI therapy. She isreporting a recent endoscopy.: No history of dysuria, frequency or incontinenceMUS CULOSKELETAL: See HPISKIN: Negative for lesions, rash, and itchingPSYCH: Negative for sleep disturbance, mood disorder and recent psychosocialstressorsHEMATOL OGY/LYMPHOLOGY: Negative for prolonged bleeding, bruising easily orswollen nodesENDOCRINE: Ne gative for cold or heat intolerance, polyuria, polydipsia andgoiterPHYSICAL EXAM:BP 15 9/91 Pulse 89 Ht 166.4 cm (5' 5.5ANDquot;) Wt (!) 138.2 kg (304 lb 9.6oz) BMI 49.92 kg/m2G ENERAL APPEARANCE: Pleasant, interacts appropriately and in no apparentdistress. Appropriat mary groomedENT: Oral mucosa pink without lesions/ulcerations, dentition intact.NECK: Supple without lymphadenopathy or thyromegalyABDOMEN: Obese, soft, non-tender, no masses, no palpable hernia.M USCULOSKELETAL: No joint deformities, good range of motion spine, hips, knees,and ankles.SKIN: Skin of normal texture, temperature w ithout rashes/lesions/ulcerations.P SYCH: Oriented to person, place, time; appropriate insight and judgement.Appropriate affect .Diagnostic Tests Reviewed for Today's VisitNo new labsIMPRESSION AND PLAN:Reta Ramos is a 51 ye ar old female with the following diagnosis andco- morbidities:Body mass index is 49.92 kg/(m2).This patient does meet the criteria for a surgical weight loss procedureaccording to [facility] gu idelines. Time was spent discussing both surgical optionsas well asshe was provided with estimation s in terms of percent excess weightloss. Procedure she is interested in: Sleeve gastrectomy versu s Chvj-br-Bzejlbd.? Reta Ramos does not have a diet requirement, however we will see her estefani hlyto evaluate objective goals. Therefore, Reta Ramos was given a 15 poundweight loss goal, recei sierra 10-15 minutes of dietary counseling in office today,as well as was scheduled for our shared edu cation class. She will also need yamilex cleared by psychology.1. Obesity, morbid, BMI 50 or higher (HC C) - ICD9: 278.01, ICD10: E66.01(primary diagnosis)2. Obstructive sleep apnea - ICD9: 327.23, ICD10: G47.33-Requested recent records, I did advise her to have her [facility]. Gastroesophageal reflux disease without esophagitis - ICD9: 530.81, ICD10:K21.9- Requested recent EGD4. Cigarette nicotine dependence in remission - ICD9: V15.82, IC D10: F17.211Commended on cessationAmy KARIN Estevez- COenoch the 60 minutes spent with the patient, ANDg t;50% counseling and orcoordinating care.This note was generated using voice recognition technology and may containgrammatical errors.Referring Provider: ANGEL BABIN [[id number]]Allergies As of Date: 07/22/2017 Noted Allergy ReactionBEES 03/15/2013 7 - SwellingDate Reviewed: 07/22Reviewed by: Lilly Estevez - Fully AssessedReason for Visit: Consult [173]Primary Visit D iagnosis:Obesity, morbid, BMI 50 or higher (HCC) [E66.01] Other Visit Diagnoses:Obstructive sleep apnea [G47.33] Gastroesophageal reflux disease without esophagitis [K21.9] Cigarette nicotine d ependence in remission [F17.211]Prescriptions as of 07/22/2017 Sig: CLONIDINE HCL 0.2 MG TABLET Take 0.2 mg by mouth once aicha* PANTOPRAZOLE 20 MG TABLET,DEL* Take 20 mg by mouth once maged* HYDRO CHLOROTHIAZIDE 25 MG TAB* Take 1 tablet by mouth once d* THERAPEUTIC MULTIVITAMIN TABL* Take 1 ta blet by mouth once d*Medication notes this encounter FLUTICASONE 110 MCG/ACTUATION HFA AEROSOL IN HALER >> Johanna Farah MA 07/22/2017 1:07 PM >> JOHANNA FARAH MA [facility] Jul 22, 2017 1:07 PM stopped TRAMADOL 50 MG TABLET >> Johanna Farah MA 07/22/2017 1:07 PM >> JOHANNA FARAH MA [facility] Jul 1:07 PM stopped DICLOFENAC SODIUM 75 MG TABLET,DELAYED RELEASE >> Johanna Farah MA 017 1:08 PM >> JOHANNA FARAH MA [facility] Jul 22, 2017 1:08 PM stoppedProblem List As Of Da juana 07/22/2017 Noted Resolved Arthritis of knee [M17.10] INVALID FOR* Meniscus tear [S83.209A] 11/2012 Tear of medial cartilage or meniscus of knee, c*INVALID FOR*06/06/2013 Other instruc tions from your clinician: Welcome to the first step towards your new healthy life! As we sally d, please review the bariatric Center program and contract. Review with the handouts that were given to an explained to include; the plate diet, food journal, follow-up schedule, bariatric patient flowsheet, and support group flyer with upcoming dates. Please incorporate efforts at eatin g 3 meals per day with each meal lasting approximately the longer than 30 minutes. Anything longer would be considered grazing. Also, as recommended in incorporating exercise 4-5 times per week for 30 minutes. This will help you achieve your presurgical weight loss goal. Please attend educatio nal class scheduled. Please schedule your appointment with our psychologist for your evalua tion as directed. Please complete any additional orders and/or testing as directed by your provider . You will see us monthly for medically supervised weight loss and we'll progress you towards s urgery.Medications Discontinued During This Encounter diclofenac, EC, 75 mg EC tablet 90 t* 1 08/1607/22/2017 Class: Print RX Route: ORAL Sig: Take 1 tablet by mouth twice daily. FOR PAIN Disc: Reason for discontinue is not on file. traMADol 50 mg tablet 11/15/2013 07/22/2017 Class: Historical Med Route: ORAL Sig: Take 1 tablet by mouth every 8 hours as needed. Disc: Reason for dis continue is not on file. fluticasone 110 mcg/actuation inhaler 0 11/29/2013 07/22/2017 Class: Historical Med Route: INHALATION Sig: Inhale 1 Puff as instructed twice daily. Disc: Reason for disc ontinue is not on file.Disposition: Return in about 1 month (around 08/22/2017) for with Dr. Kaitlyn cunningham, with Dietitian.Follow-up and Disposition History Recorded --------Questionnai re: AG GEN SURG BARIATRIC [place] E-OP VISITSWEIGHT (pounds) (PRE OP) -> 304.6HEIGHT (inches) -> 65.5PREOP BMI -> 50PREOP LARA AL BODY WEIGHT -> 64GOAL WEIGHT -> 290PREOP % BODY FAT -> 45Letter TextEncounter Number: [id number] Status:Closed by LILLY STILES on 07/24/17 office visit: abdominal pain and constip ation on 2017-03-03 Fall risk assessment No 7 - [facility] Surgical 03-03-2017 Associate s ([id number]) Protein mass conc Done 03-03-2017 - [facility] Surgical 03-03-2017 Associate s ([id number]) Tobacco smoking status Former 017 - [facility] Surgical [facility] 03-03-2017 Associate s ([id number]) Tobacco smoking status Former smoker - [facility] 03-03-2017 Associate s ([id number]) lab report: urinalysis, complete on 2016-03-12 Bacteria LM.HPF 0 SEEN /hpf None Seen 03-12-2016 - [facility] Surgical #/area (Urine sed) 03-12-2016 Associates ([id number]) Epithelial cells 0-5 SEEN -03-12-2016 [facility] Surgical LM.HPF #/area (Urine 6 Associates ([id number]) sed) Mucus Ql (Urine sed) 0 SEEN <or=2+ 6 - [facility] Surgical 03-12-2016 Associate s ([id number]) RBC LM.HPF #/vol 0 SEEN 0-5 03-12-2016 - [facility] Surgical (Urine sed) 03-12-2016 Associa faith ([id number]) WBC #/vol (Bld) 0 SEEN 0-5 03-12-2016 - [facility] Surgical 03-12-2016 Associate s ([id number]) lab report: troponin-i on 2016-03-12 Troponin I.cardiac < 0.02 ng/mL <0.06 ng/mL 03-12-[address] [place] [address] Surgical mass conc 03-12-2016 Associate s ([id number]) lab report: lipase on 2016-03-12 LIPASE 204 73-393 U/L 03-12-2016 - 03-12- 016 [facility] ([id number]) lab report: comprehensive metabolic prof il on 2016-03-12 Albumin mass conc 3.2 3.4-5.0 g/dL Low 03-12-2016 - [facility] Surgical 03-12-2016 Associate s ([id number]) Albumin/Globulin 0.8 RATIO 0.9-2.4 {ratio} Low 03-12-2016 [facility] Surgical mass ratio 03-12-2016 Associat es ([id number]) ALP enzyme 143 50-136 U/L High 03-12-2016 - [facility] Max rgical act/vol (Bld) 03-12-2016 Assoc iates ([id number]) ALT enzyme 57 12-78 U/L 03-12-2016 [facility] Max rgical act/vol 03-12-2016 Associate s ([id number]) Anion gap molar 7 5-15 mmol/L 03-12-2016 - [facility] Surgical conc 03-12-2016 Associate s ([id number]) AST enzyme 85 15-37 U/L High 03-12-2016 [facility] Max rgical act/vol 03-12-2016 Associate s ([id number]) Bilirubin mass 0.30 0.20-1.00 mg/dL 03-12-2016 - [facility] Surgical conc 03-12-2016 Associate s ([id number]) Calcium mass conc 8.5 8.5-10.1 mg/dL 03-12-2016 [facility] Surgical 03-12-2016 Associate s ([id number]) Chloride molar 102 98-107 mmol/L 03-12-2016 [facility] Surgical conc 03-12-2016 Associate s ([id number]) CO2 ppres (BldV) 30.0 21.0-32.0 mmol/L 03-12-2016 [facility] Surgical 03-12-2016 Associate s ([id number]) Creatinine mass 1.06 0.55-1.20 mg/dL 03-12-2016 - [facility] Surgical conc 03-12-2016 Associate s ([id number]) EST GFR - AA 70 >60 mL/min 03-12-2016 - [facility] Surgical 03-12-2016 Associate s ([id number]) GFR/1.73 sq M 58 >60 mL/min Low 03-12-2016 [facility] Surgical predicted among 03-12-2016 Ass ociates non-blacks MDRD (386 91) vol rate/area (S/P/Bld) Globulin mass 4.1 2.3-3.5 g/dL High 03-12-2016 [facility] Surgical conc (S) 03-12-2016 Associate s ([id number]) Glucose mass conc 97 70-110 mg/dL 03-12-2016 - [facility] Surgical 03-12-2016 Associate s ([id number]) Potassium molar 3.4 3.5-5.1 mmol/L Low 03-12-2016 - [facility] conc 03-12-2016 Associate s ([id number]) Protein mass conc 7.3 6.4-8.2 g/dL 03-12-2016 - [facility] Surgical 03-12-2016 Associate s ([id number]) Sodium molar conc 139 136-145 mmol/L 03-12-2016 - [facility] Surgical 03-12-2016 Associate s ([id number]) Urea nitrogen 15 7-18 mg/dL 03-12-2016 [facility] Surgical mass conc 03-12-2016 Associate s ([id number]) Urea 14.2 RATIO 10-20 03-12-2016 [facility] Max rgical nitrogen/Creatini 03-12-2016 A ssociates ne mass ratio ([id number] ) lab report: cbc w/diff, automated on 2016-03-12 Basophils/100 WBC 0.7 0-1 % 03-12-2016 [facility] Surgical (Bld) 03-12-2016 Associate s ([id number]) Eosinophils/100 WBC 1.9 0-5 % 03-12-2016 [facility] Surgical (Bld) 03-12-2016 Associate s ([id number]) Erythrocyte 59.8 35.1-43.9 fL High 03-12-2016 [facility] S urgical distribution width 03-12-2016 Associates Ratio (RBC) ([id number]) Erythrocyte 17.8 11.6-14.6 % High 03-12-2016 [facility] S urgical distribution width 03-12-2016 Associates Ratio (RBC) ([id number]) Hematocrit Volume 34.5 37-47 % Low 03-12-2016 [facility] Surgical Fraction (Bld) 03-12-2016 Asso ciates ([id number]) Hemoglobin mass conc 10.6 12.0-15.0 g/dL Low [address] [place] [address] Surgical (Bld) 03-12-2016 Associate s ([id number]) Immature 0.100 0.0-0.9 % 03-12-2016 [facility] Kim gical granulocytes #/vol 03-12-2016 Associates (Bld) ([id number]) Lymphocytes #/vol 1.97 X10 0.83-4.51 03-12-2016 [facility] Surgical (Bld) 3/UL 03-12-2016 Associate s ([id number]) Lymphocytes/100 WBC 27.0 19-41 % 03-12-2016 [facility] Surgical (Bld) 03-12-2016 Associate s ([id number]) MCH Entitic mass 28.1 27.0-32.0 pg 03-12-2016 [facility] Surgical (RBC) 03-12-2016 Associate s ([id number]) MCHC mass conc (RBC) 30.7 G/GL 32-[address] [place] [address] Surgical 03-12-2016 Associate s ([id number]) MCV Entitic volume 91.5 81-99 fL 03-12-2016 - [facility] Surgical (RBC) 03-12-2016 Associate s ([id number]) Monocytes/100 WBC 6.3 0-10 % 03-12-2016 - [facility] Surgical (Bld) 03-12-2016 Associate s ([id number]) Neutrophils #/vol 4.7 X10 2.0-7.7 03-12-2016 - [facility] Surgical (Bld) 3/UL 03-12-2016 Associate s ([id number]) Neutrophils/100 WBC 64.0 47-70 % 03-12-2016 - [facility] Surgical (Bld) 03-12-2016 Associate s ([id number]) Platelet mean volume 8.9 6.2-12.0 fL - [facility] Surgical Entitic volume (Bld) 6 Associates ([id number]) Platelets #/vol 316 150-450 10*3/mm3 03-12-2016 Surgical (Bld) 03-12-2016 Associate s ([id number]) RBC #/vol (Bld) 3.77 4.2-5.4 10*6/uL Low 03-12-2016 [facility] Surgical 03-12-2016 Associate s ([id number]) WBC #/vol (Bld) 7.3 4.4-11.0 10*9/L 03-12-2016 [facility] Surgical 03-12-2016 Associate s ([id number]) lab report: (p) urinalysis, complete on 2016-03-12 Albumin Ql (U) Negative Negative 03-12-2016 [facility] Surgical 03-12-2016 Associate s ([id number]) Bilirubin Ql (U) Negative Negative 03-12-2016 [facility] Surgical 03-12-2016 Associate s ([id number]) Clarity Nom (U) Clear Clear 03-12-2016 Surgical 03-12-2016 Associate s ([id number]) Color Nom (U) Yellow Yellow 03-12-2016 [facility] Surgical 03-12-2016 Associate s ([id number]) Glucose Ql (U) Normal mg/dl Normal 03-12-2016 [facility] Surgical 03-12-2016 Associate s ([id number]) Ketones mass conc Negative Negative 03-12-2016 [facility] Surgical (U) 03-12-2016 Associate s ([id number]) Leukocyte esterase 25 Negative High 03-12-2016 [facility] Surgical Test strip Ql (U) 03-12-2016 Aminata pathak ([id number]) OCCULT BLOOD-UR Negative Negative 03-12-2016 - [facility] 03-12-2016 Associate s ([id number]) pH (U) 6.5 5.0 - 8.0 [pH] 03-12-2016 - [facility] Kim gical 03-12-2016 Associate s ([id number]) Specific gravity 1.015 1.002-1.030 03-12-2016 - [facility] Surgical Refractometry 03-12-2016 Assoc iates Relative Density ([id number] 661) (U) lab report: thyroid stim hormone (tsh) on 2015-12-27 Thyrotropin Qn 0.71 0.358-3.74 u[iU]/mL 12-27-2015 - Surgical 12-27-2015 Associate s ([id number]) lab report: t4 free direct on 2015-12-27 T4 free mass conc 0.94 0.76-1.46 ng/dL 12-26-2015 - 12-27-2015 [facility] ([id number]) lab report: free t3 on 2015-12-27 T3 free mass conc 2.8 2.18-3.98 pg/mL 12-26-2015 - 12-27-2015 [facility] ([id number]) lab report: ,urine on 2015-07-24 HCG.beta subunit Negative 07-24-2014 - 07-24-2015 [facility] ( test) Ql (U) ([id number]) microbiology: mrsa/said screen on 2015-07-20 MRSA+SAID SCRN . 07-20-2014 - [facility] ([id number]) office visit: abdominal pain and constip ation on 2013-08-03 MG Breast screening Normal Bilateral - [facility] Surgical 08-03-2013 Associate s ([id number]) Vital Signs Vital Sign Description Value / Unit Date Location The following section is limited to 5 en tries per type and includes entries from the following time range: 20160130 - 1. BMI (Body Mass Index) 45.36 kg/m2 03-03-2017 - 03-03-2017 [facility] ([id number]) Body surface area Derived 62.63 mL/min 03-12-2016 - 6 [facility] Associates from formula ([id number]) Body Temperature 98 [degF] 03-03-2017 - 03-03-2017 [facility] Kim gical Associates ([id number]) Body Temperature 96.26 [degF] 01-30-2016 - 01-30-2016 [facility] Kim gical Associates ([id number]) BP Diastolic 89 mm[Hg] 03-03-2017 - 03-03-2017 [facility] Surg ical [facility] ([id number]) BP Systolic 145 mm[Hg] 03-03-2017 - 03-03-2017 [facility] Surg ical [facility] ([id number]) BSA (Body Surface Area) 2.42 m2 01-30-2016 - 01-30-2016 [facility] ([id number]) Height 175.26 cm 03-03-2017 - 03-03-2017 [facility] S[facility] ical [facility] ([id number]) Height 175.26 cm 01-30-2016 - 01-30-2016 [facility] ([id number]) Pulse (Heart Rate) 60 /min 01-30-2016 - 01-30-2016 [facility] S urgical Associates ([id number]) Respiratory Rate 20 /min 03-03-2017 - 03-03-2017 [facility] Kim gical Associates ([id number]) Weight 139.35 kg 03-03-2017 - 03-03-2017 [facility] S[facility] ical [facility] ([id number]) Weight 132.27 kg 01-30-2016 - 01-30-2016 [facility] S[facility] ical [facility] ([id number]) Encounters Date Type Reason Provider Location 01-05-2018 - Evaluation and LIBERTY Anthony eneral 01-07-[address] [facility] inpatient SANDRA WYNN ([id number]) [facility]DRA WYNN [facility] SANDRA WYNN 04-23-2018 - Patient encounter [id number]-2018 - Patient encounter KLARISSA HARRISON [facility] 04-19-[address] (0000 0) 02-19-2018 - Patient encounter LIBERTY Vázquez Gene [facility] 02-19-2018 [facility] ([id number][facility] 02-10-2018 - Patient encounter LILLY (SONIDO) ZENAIDA [facility] 02-10-[address] (0000 0) 01-13-2018 - Patient encounter LILLY (SONIDO) ZENAIDA [facility] 01-13-2018 M LAKTASH [facility] ([id number]) 12-29-2017 - Patient encounter LILLY (SONIDO) ZENAIDA [facility] 12-30-2017 [id number] 12-29-2017 [facility][id number][facility] 12-17-2017 - Patient encounter LIBERTY Vázquez Gene [facility] 12[facility]17-2017 [facility] [place] ([id number][facility] 12-02-2017 - Patient encounter LILLY (SONIDO) ZENAIDA [place] A sonia General 12-03-2017 [facility] ([id number][facility] 11-24-2017 - Patient encounter LILLY (SONIDO) ZENAIDA [place] A sonia General 11-25-2017 M [facility] ([id number]) 11-24-2017 - Patient encounter LILLY (SONIDO) ZENAIDA [place] A sonia General 11-24-2017 [facility] ([id number]) 11-24-2017 - Patient encounter LILLY (SONIDO) ZENAIDA [place] A sonia General 11-24-2017 [facility] ([id number]) 10-27-2017 - Patient encounter KERRIEPEDRO LUIS HOWARD [place] G eneral 10-27-2017 [facility] er KERRIE HOWARD ([id number]) [place]ERRIE [place]ARD [place] 10-19-2017 - Patient encounter LILLY (SONIDO) ZENAIDA [place] A sonia General 10-20-2017 M [facility] ([id number]) 10-19-2017 - Patient encounter LILLY (SONIDO) ZENAIDA [place] A sonia General 10-19-2017 M [facility] ([id number]) 10-13-2017 - Patient encounter LILLY (SONIDO) ZENAIDA [place] A sonia General 10-13-[address] [facility] ([id number]) 09-29-2017 - Patient encounter KERRIE Anthony eneral 09-29-2017 [facility][phone] KERRIE HOWARD SANDRA Patricio [facility] 09-23-2017 - Patient encounter LILLY (SONIDO) ZENAIDA LILLY [place] sonia General 09-23-[address] [facility] ([id number]) 09-17-2017 - Patient encounter LILLY (SONIDO) ZENAIDA LILLY [facility]ia [facility] 09-17-2017 [facility] ([id number][facility] 09-03-2017 Patient encounter LIBERTY KINGSLEY [place] [facility] ([id number]) 08-20-2017 - Patient encounter LIBERTY KINGSLEY Kathie [facility] 08-20-2017 [facility] ([id number]) 07-22-2017 - Patient encounter LILLY (SONIDO) ARTIEAMY [facility] 07-22-2017 [facility][id number] 08-18-2018 Patient encounter LILLY ESTEVEZ [facility] Faci lity:[place] procedure [facility] 07-20-2018 Patient encounter LILLY ESTEVEZ [facility] Faci [place]ity:[place] procedure [facility] 01-05-2018 - Patient encounter Liberty Wynn [facility] 01-05-2018 procedure 10-28-2017 Patient encounter LILLY ZEEHI [facility] Faci lity:[place] procedure [facility] 01-05-2018 Results Only [facility] Procedures Procedure Name Date Provider Location CONVERTED SURGICAL PATHOLOGY 01-05-2018 [facility] ([id number]) Antibody screen 12-29-2017 [facility] ([id number]) Comment: Performed By: #### CBC1 #### [address] [address] Urinalysis 03-12-2016 - [facility] Surgical 03-12-2016 Associates ([phone] 1) Echo ttc r-t 2d 01-30-2016 - Gricelda Zaragoza [facility] Surgica l w/wom-mode compl spec&colr 02-11-2016 [facility] ([id number]) d Pulmonary stress 01-30-2016 - Gricelda Zaragoza [facility] Surgical test/simple 02-11-2016 [facility] ([id number] 1) Thyrotropin [Units/volume] 12-27-2015 - [facility] in Serum or Plasma 01-01-2016 [facility] ([id number]) Thyroxine (T4) free 12-27-2015 - [facility] Surgica l [Mass/volume] in Serum or 01-01-2016 [facility] ([id number]) Plasma Triiodothyronine (T3) Free 12-27-2015 - [facility] [Mass/volume] in Serum or 01-01-2016 [facility] at[facility] ([id number]) Plasma Pain Management 06-06-2015 - [facility] 06-06-2016 [facility] ([id number] 1) Physical therapy 06-06-2015 - [facility] management 06-06-2016 [facility] ([id number] 1) Radex spine lumbscrl compl 06-05-2015 - [facility] S urgical w/bending views min 6 07-20-2015 [facility] ([id number]) Mri any jt lower extrem 01-12-2015 - [facility] ical w/o contrast matrl 07-20-2015 [facility] ([id number]) Radiologic exam knee 01-12-2015 - [facility] Surgica l complete 4/more views 07-20-2015 [facility] ([id number]) Documentation of current 08-22-2014 - [facility] Kim gical medications 08-29-2014 [facility] ([id number] 1) Mri any jt lower extrem 08-10-2014 - [facility] Surg ical w/o contrast matrl 07-20-2015 [facility] ([id number]) Radiologic exam knee [facility]/more views 07-20-2015 [facility] ([id number]) Plan of Treatment Plan Description Date Location DIABETES SCREEN DIABETES SCREEN 11-09-2021 [facility] ([id number]) INFLUENZA (#1) INFLUENZA (#1) 2020 [facility] (48306) Colonoscopy Colonoscopy 03-03-2017 [facility] Surgical 03-20-2017 Associates ([id number] 1) CT Abdomen and pelvis; CT Abdomen and pelvis; 03-03-2017 [facility] Surgical with contrast with contrast 03-04-2017 [facility] ([id number] 1) material(s) material(s) Echo Complete with Color Echo Complete with Color 01-30-2016 [facility] Surgical Flow Flow 02-11-2016 [facility] ([id number] 1) Pulmonary stress Pulmonary stress 01-30-2016 [facility] Surgical testing; simple (eg, testing; simple (eg, 02-11-2016 Associ ates (44486) 6-minute walk) 6-minute walk) Complete sleep workup Complete sleep workup 01-16-2016 [facility] Surgical (PSG,CPAP as indicated) (PSG,CPAP as indicated) 01-16-2016 [facility] ([id number]) & Follow up & Follow up CT Chest with Contrast CT Chest with Contrast 01-16-2016 [facility] Surgical 01-16-2016 [facility] ([phone] 1) Follow Up Appt 3 months Follow Up Appt 3 months 01-16-2016 [facility] Surgical 01-16-2016 [facility] ([phone] 1) X-Ray, Knee X-Ray, Knee 01-16-2016 [facility] Surgical 01-16-2016 [facility] ([phone] 1) Pulmonary Referral Pulmonary Referral Polo 01-10-2016 [facility] Surgical Polo Purcell, Pulmonary Medicine of os ter, [address], [place], [address] Binh, Pulmonary 01-11-2016 [facility] ([id number]) [facility] [place], [address], [place], [address] X-Ray, Chest, PA & X-Ray, Chest, PA & 12-27-2015 [facility] Surgic al Lateral Lateral 12-27-2015 Associates ([phone] 1) Dermatology Referral Dermatology Referral 12-27-2015 [facility] Max rgical 12-27-2015 [facility] ([phone] 1) Pulmonary Function Pulmonary Function 12-27-2015 [facility] Surgic al 12-27-2015 [facility] ([id number] 1) *T3-Free *T3-Free 12-27-2015 - [facility] Surgical 01-01-2016 Associates ([id number]) *T4 free *T4 free 12-27-2015 - [facility] Surgical 01-01-2016 [facility] ([id number]) *TSH *TSH 12-27-2015 - [facility] Surgical 01-01-2016 [facility] ([id number]) X-Ray, Knee X-Ray, Knee 09-06-2015 - [facility] Surgical 09-06-2015 [facility] ([id number]) Pain Management Pain Management [place] 06-06-2015 - [facility] Surgic al [place] Charles Basali, [address], [address], [place], [address] Charles Basali, 546 06-06-2015 [facility] ([id number]) [facility], [facility] [address], [address] Physical Therapy General Physical Therapy General 06-06-2015 [facility] Surgical Rehab Services, [address] [place] [address], [address] R ehab Services, [facility] 06-06-2015 [facility] ([id number]) [place], [address] X-Ray, Spine, Lumbar, X-Ray, Spine, Lumbar, 06-05-2015 [facility] Surgical complete with bending complete with bending 07-20-2015 Yomaira carter ([id number]) views views 79315 Ofc Vst, Est Level 38278 Ofc Vst, Est Level 03-16-2015 [facility] Surgical IV IV 03-19-2015 [facility] ([id number]) X-Ray, Knee X-Ray, Knee 03-16-2015 - [facility] Surgical 03-16-2015 [facility] ([id number] 1) [address]773 Ofc Vst, Est Level 58510 Ofc Vst, Est Level 02-27-2015 - [facility] Surgical IV IV 03-06-2015 [facility] ([id number]) MRI Joint Lower MRI Joint Lower 01-12-2015 - [facility] Surgical Extremity Extremity 07-20-2015 [facility] ([id number]) X-Ray, Knee X-Ray, Knee 01-12-2015 - [facility] Surgical 07-20-2015 [facility] ([id number]) MRI Joint Lower MRI Joint Lower 08-10-2014 - [facility] Surgical Extremity Extremity 07-20-2015 [facility] ([id number]) X-Ray, Knee X-Ray, Knee 08-10-2014 - [facility] Surgical 07-20-2015 [facility] ([id number] 1) SHINGRIX VACCINE (1 of SHINGRIX VACCINE (1 of 2013 [facility] 2) 2) ([id number]) COLORECTAL CANCER COLORECTAL CANCER 2013 [facility] inic SCREENING,SEE MODIFIER SCREENING,SEE MODIFIER ([id number]) LIPID SCREEN LIPID SCREEN 2008 [facility] ([id number]) MAMMOGRAM MAMMOGRAM 2003 [facility] ([id number]) HPV TESTING HPV TESTING 1993 [facility] ([id number]) PAP TESTING PAP TESTING 1984 [facility] ([id number]) DTAP,TDAP,TD (1 - Tdap) DTAP,TDAP,TD (1 - Tdap) 1982 [facility] ([id number]) HEPATITIS C SCREENING HEPATITIS C SCREENING 1981 [facility] ([id number]) HIV SCREENING HIV SCREENING 1981 [facility] ([id number]) Patient education OPERATIVE+KNEE+ARTHROSCO [facility] S urgical PY [facility] ([id number] 1) Payers Payer Name Policy Number Location MEDICARE [id number] [facility] (44 195) MEDICARE A AND B [id number] [facility] ([id number]) MEDICARE A AND B [id number] [facility] ([id number]) [id number] [facility] ([id number]) [id number] [facility] ([id number]) [id number] [facility] ([id number]) [id number] [facility] ([id number]) [id number] [facility] ([id number]) [id number] [facility] ([id number]) [id number] [facility] ([id number]) [id number] [facility] ([id number]) [id number] [facility] ([id number]) [id number] [facility] ([id number]) [id number] [facility] ([id number]) [id number] [facility] ([id number]) [id number] [facility] ([id number]) [id number] [facility] ([id number]) [id number] [facility] ([id number]) [id number] [facility] ([id number]) [id number] [facility] ([id number]) [id number] [facility] ([id number]) [id number] [facility] ([id number]) [id number] [facility] ([id number]) [id number] [facility] ([id number]) [id number] [facility] ([id number]) [id number] [facility] ([id number]) [id number] [facility] ([id number]) [id number] [facility] ([phone]) [id number] [facility] ([id number]) [id number] [facility] ([id number]) The following information is from the original human readable contentNo Payer Records FoundNo Payer Records FoundNo Payer Records Found Social History Type Social History Date Location Description Tobacco smoking status Former smoker 01-05-2018 [facility] ([id number]) History of tobacco use Current smoker 07-06-2013 [facility] ([id number]) History of tobacco use Cigarette Smoker 07-06-2013 [facility] ([id number]) Cigarettes smoked 01-05-2018 [facility] ic current (pack per day) 01-05-2018 ([id number]) - Reported Tobacco use and Never used 01-05-2018 [facility] exposure ([id number]) Alcohol intake Current drinker of 01-05-[address] [facility] alcohol (finding) (91974) Alcohol Comment occasionally 07-21-2017 [facility] ([id number]) Sex Assigned At Female [facility] ([id number]) The following information is from the original human readable contentNo Social History Records FoundNo Social History Records FoundNo Social History Records FoundNo Social History Records FoundNo Social History Records Found Goals Patient Goal Desired Goal Summary Purpose Family History No Family History Records FoundNo Family History Records FoundNo Family History Records Found Advance Directives Documents on File Type Date 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 This clinical summary was aggregated from multiple sources. Caution should be exercised in using it in the provision of clinical care. This summary normalizes information from multiple sources, and as a consequence, information in this document may materially changethe coding, format and clinical context of patient data. In addition, data may be omittedin some cases. CLINICAL DECISIONS SHOULD BE BASED ON THE PRIMARY CLINICAL RECORDS. [facility] provides no warranty or guarantee of the accuracy or completeness of information in this document. UNRECOGNIZED CONTENT PROVIDED BELOW FOR UNRECOGNIZED SECTION INFORMATION SOURCE DATE CREATED AUTHOR AUTHOR'S ORGANIZATIO N 05/22/2018 [facility] DATE CREATED AUTHOR AUTHOR'S ORGANIZATIO N 05/31/2018 [facility] DATE CREATED AUTHOR AUTHOR'S ORGANIZATIO N 07/17/2018 [facility] UNRECOGNIZED CONTENT PROVIDED BELOW FOR UNRECOGNIZED SECTION Source Comments In the event this information is protected by the Federal Confidentiality of Alcohol and Drug Abuse Patient Records regulations: The Federal rules restrict any use of the information to criminally investigate or prosecute any alcohol or drug abuse patient.[facility]
== END | disposition home or self-care (01) ==
LOC: BFHLAB 12:15
PROVIDERS: PCP Family Medicine; Visit Provider Family Medicine
DX: E16.2 Hypoglycemia, unspecified (principal); D64.9 Anemia, unspecified; R20.2 Paresthesia of skin; R53.83 Other fatigue; Z98.84 Bariatric surgery status; Z51.81 Encounter for therapeutic drug level monitoring
CPT/HCPCS: 36415; 80053; 82607; 82728; 82746; 83540; 83735; 84443; 85025

== ENCOUNTER → 2020-02-07 | Outpatient (CLI) | payer MEDICARE, SELFPAY ==
--- NOTE | 2020-02-07 07:38 | US_ITS ---
STUDY: ABDOMINAL ULTRASOUND - RIGHT UPPER QUADRANT REASON FOR VISIT: Female, 54 years old ELEVATED LIVER ENZYMES TECHNIQUE: Ultrasound evaluation of the right upper quadrant was performed with real-time and static ortega-scale imaging. TECHNICAL QUALITY: Adequate. COMPARISON: Comparison is made with prior ultrasound examination dated March 12, 2016. FINDINGS: Liver: The liver measures 16.0 cm. There is increased echogenicity consistent with fatty infiltration. The bile ducts are within normal limits. There is hepatic color flow. The direction of portal flow is hepatopetal. There is no demonstrated mass lesion. Gallbladder: Normal distended gallbladder. The gallbladder wall measures 2.5 mm. There is a negative sonographic Oro''s sign. There is no pericholecystic fluid. There are no gallstones. Common Bile Duct (C.B.D.): The common bile duct measures 2.1 mm. Pancreas: Normal size of the head, body of the pancreas. The tail portion is obscured due to overlying bowel gas. There is normal echogenicity of the pancreas. There is no demonstrated pancreatic mass or cyst. Right Kidney: Normal size of the right kidney. The right kidney measures 10.3 cm x 4.3 cm x 5.1 cm. Normal renal cortex. The right cortex measures 1.7 cm. There is no demonstrated renal mass or cyst. There is no right hydronephrosis. US/Abdomen Limited IMPRESSION: Fatty infiltration of the liver. Electronically Signed: Fransisco Henriquez, at 10:05 EDT , Service support ,
== END | disposition home or self-care (01) ==
LOC: US 07:37
PROVIDERS: PCP Family Medicine; Referring Provider Family Medicine; Visit Provider Family Medicine
DX: R74.8 Abnormal levels of other serum enzymes (principal)
CPT/HCPCS: 76705

== ENCOUNTER → 2020-04-05 | Outpatient (CLI) | payer MEDICARE, SELFPAY ==
--- NOTE | 2020-04-05 13:23 | CT_ITS ---
STUDY: CT ABDOMEN AND PELVIS WITH CONTRAST REASON FOR EXAM: Female, 54 years old. ABD PAIN, BLOATING, FEELS A and quot; TIGHTNESS and quot; AROUND HER WAIST, WT LOSS, PREV GASTRIC BYPASS RADIATION DOSAGE (If Supplied By Facility): CTDIvol = ( 14.03 ) mGy, DLP = ( 1003.87 ) mGycm TECHNIQUE: Transaxial images were obtained from the dome of the diaphragm to the symphysis pubis with oral contrast. Oral and amp; IV Readi-CAT and amp; 100mL Isovue-300 was administered. Sagittal and coronal images were reconstructed. Individualized dose optimization techniques were used for this CT. COMPARISON: Comparison is made with prior study dated 03/11/2017. FINDINGS: The visualized lung bases are unremarkable. The visualized portions of the heart are within normal limits. There is decreased attenuation of the liver consistent with steatosis. Hepatomegaly. Normal gallbladder and extrahepatic biliary system. Normal spleen. Normal pancreas. Normal bilateral adrenal glands. Normal right kidney. Normal left kidney. Subtotal gastrectomy for gastric bypass surgery. Normal small intestine. Normal colon. The appendix is visualized and appears normal. Normal abdominal aorta. Normal inferior vena cava. Normal retroperitoneum. Normal urinary bladder. There is a small umbilical hernia containing fat. There are degenerative changes of the visualized lumbar spine. CT/Abdomen/Pelvis WITH Contrast IMPRESSION: Hepatomegaly and fatty infiltration of liver. Subtotal gastrectomy for gastric bypass surgery. Electronically Signed: Fransisco Henriquez, at 14:30 EDT , Service support ,
== END | disposition home or self-care (01) ==
LOC: CT 13:22
PROVIDERS: PCP Family Medicine; Referring Provider Family Medicine; Visit Provider Family Medicine
DX: R10.9 Unspecified abdominal pain (principal); R14.0 Abdominal distension (gaseous)
CPT/HCPCS: 74177; Q9967

== ENCOUNTER → 2020-04-30 | Outpatient (CLI) | payer MEDICARE, SELFPAY ==
--- NOTE | 2020-04-30 13:21 | MRI_ITS ---
STUDY: MRI LUMBAR SPINE WITHOUT CONTRAST REASON FOR EXAM: Female, 54 years old. ddd, bilat radiculopathy TECHNIQUE: Standardized fat and water weighted pulse sequences were obtained in the sagittal and axial planes. COMPARISON: Lumbar spine films 06/05/2015 FINDINGS: T12-L1: Normal endplates. Normal disc height, hydration and morphology. Normal bilateral facet joints. Normal central canal and bilateral lateral recesses. Normal bilateral intervertebral neural foramina. Normal lumbar lordosis. There is no substantial scoliosis. Normal conus medullaris that terminates at L1 L1-2: Normal endplates. Normal disc height, desiccation and minimal annular bulge. Normal bilateral facet joints. Normal central canal and bilateral lateral recesses. Normal bilateral intervertebral neural foramina. L2-3: Normal endplates. Normal disc height, desiccation and minor annular bulge.. Normal bilateral facet joints. Normal central canal and bilateral lateral recesses. Normal bilateral intervertebral neural foramina. L3-4: Normal endplates. Normal disc height, desiccation and minor annular bulge.. Normal bilateral facet joints. Normal central canal and bilateral lateral recesses. Minor bilateral neuroforaminal encroachment. L4-5: Degenerative endplate changes. Narrowed disc space with desiccation of the disc and mild annular bulge with small left foraminal disc protrusion. Mild facet arthropathy and thickening of ligamenta flava. Normal central canal and bilateral recesses. Mild right neuroforaminal stenosis and moderate narrowing on the left. L5-S1: Degenerative endplate changes. Narrowed disc space with desiccation of disc and minimal annular bulge. Bilateral facet arthropathy. Minor bilateral neural foraminal encroachment. Normal visualized sacral ala. Normal visualized paraspinous soft tissue structures. MRI/Spine Lumbar (Routine) IMPRESSION: No evidence for acute fracture or other significant bony pathology. Mild spondylosis and multilevel disc degeneration Mild multilevel spinal stenosis secondary to disc disease and bony hypertrophy most pronounced at L4-5. Findings as above Electronically Signed: Fabio Collins MD at 22:22 EDT , Service support ,
== END | disposition home or self-care (01) ==
PROVIDERS: PCP Family Medicine; Referring Provider Family Medicine; Visit Provider Family Medicine
DX: M51.16 Intervertebral disc disorders with radiculopathy, lumbar region (principal)
CPT/HCPCS: 72148

== ENCOUNTER 2020-06-05 00:38 | Observation (INO) | payer MEDICARE, SELFPAY ==
[2020-06-05] VITALS (21 sets, daily range): BP systolic 120–179; BP diastolic 72–101; PULSE 87–133; RESP 16–29; TEMP 36.5–37.1; O2SAT 94–98; BMI 25.2; BMI 29.9; BMI 29.0
--- NOTE | 2020-06-05 00:43 | CT_ITS ---
STUDY: CT BRAIN WITHOUT CONTRAST REASON FOR EXAM: Female, 54 years old. FACIAL TREMORS/TROUBLE FINDING WORDS. HTN-rx controlled RADIATION DOSAGE (If Supplied By Facility): CTDIvol = ( 44.99 ) mGy, DLP = ( 779.24 ) mGycm TECHNIQUE: Transaxial CT imaging of the brain was performed without administration of intravenous contrast material. Individualized dose optimization techniques were used for this CT. COMPARISON: No relevant priors. FINDINGS: Normal soft tissue structures. Normal calvarium. Normal size ventricles and extra-axial spaces for the patient''s age. Normal white matter tracts of the cerebral hemispheres. Normal basal ganglia and thalami. Normal brainstem. Normal cerebellum. There is no intracranial hemorrhage. There are no findings of an acute ischemic infarction. There is minimal mucoperiosteal thickening in the right maxillary sinus consistent with chronic disease. There is no evidence for acute sinusitis. CT/Brain/Head without Contrast IMPRESSION: Normal unenhanced CT scan of the brain. Electronically Signed: Rufino Moise MD at 1:28 EST , Service support ,
--- NOTE | 2020-06-05 00:43 | EKG12_ITS ---
Test Reason : STROKE Blood Pressure : / mmHG Vent. Rate : 106 BPM Atrial Rate : 106 BPM P-R Int : 136 ms QRS Dur : 088 ms QT Int : 334 ms P-R-T Axes : 020 -16 029 degrees QTc Int : 443 ms Sinus tachycardia Otherwise normal ECG Confirmed by CHAPO GÓMEZ, CLARICE ([id number]), editor house organ KIKI SANDERSON ([id number]) on 06/07/2020 11:33:51 AM Referred By: ALEXIS Confirmed By:CLARICE COWAN MD
--- NOTE | 2020-06-05 00:43 | RAD_ITS ---
STUDY: X-RAY CHEST REASON FOR EXAM: Female, 54 years old. NEURO SYMPTOMS TECHNIQUE: 2 AP portable views of the chest were obtained. COMPARISON: Chest x-ray 12/27/2015. FINDINGS: There are no confluent pulmonary infiltrates. There is no demonstrated pleural abnormality. Normal size heart. Normal mediastinum and ishmael. Normal visualized aortic arch and descending thoracic aorta. There are no demonstrated acute fractures or destructive bone lesions. There is no demonstrated abnormality of the visualized soft tissue structures of the upper abdomen. RAD/Chest 1 View IMPRESSION: Normal x-ray examination of the chest. Electronically Signed: Rufino Moise MD at 1:20 EST , Service support ,
--- NOTE | 2020-06-05 00:44 | ED.VIS.GEN ---
History of Present Illness Chief Complaint: Neuro S/Sx Informant: Patient, Family Onset: Today Context: Sudden Onset Timing: Continuous Current Severity: Moderate Maximum Severity: Moderate Narrative: The patient is a 54-year-old female with medical history significant for hypertension, hyperlipidemia, and chronic back pain that presents to the emergency department with neurologic symptoms. Her symptoms began yesterday afternoon at 2 PM. She was talking, and having repetitive motion of her face. Her states that she was having a difficult time getting her words out. He states that he was pleading with her throughout the day that she should be evaluated. She finally relented at about midnight and came in. She states that she feels generally weak. She also states she just does not feel herself. She did have some difficulty with word finding but that is since resolved. She denies any focal weakness. She denies headache or visual change. She has no history of TIA or stroke. Prior similar symptoms: No Recent Illness/Hospitalization: No Past Medical History - Allergies and Home Meds Allergies/Adverse Reactions: Allergies No Known Allergies Allergy (Verified 06/05/20 00:41) Primary Care Physician: Klaudia Ashley DO [Primary Care Provider] - Prior records reviewed: Yes Past Medical History: - - Hypertension, hyperlipidemia, arthritis Surgical History: noncontributory Smoking Status: Former smoker Review of Systems General: Denies: Chills, Fever, Sweats Eyes: Denies: Visual changes - bilaterally, Diplopia ENT: Denies: Rhinorrhea, Sore throat Cardiovascular: Denies: Chest pain, Palpitations Respiratory: Denies: Dyspnea, Cough, Dyspnea on exertion Gastrointestinal: Denies: Abdominal pain, Nausea, Vomiting, Diarrhea, Melena, Hematochezia Genitourinary: Denies: Dysuria, Hematuria, Frequency Musculoskeletal: Denies: Back pain, Extremity Pain Skin: Denies: Rash, Wounds Neurological: Denies: Headache, Weakness, Numbness Physical Exam Inital Vital Signs reviewed: Yes General: Well nourished, Well developed, No Acute Distress Head: Normocephalic, Atraumatic Eyes: Perrl, EOMI ENT: Moist mucous membranes, No rhinorrhea Neck: Supple, Nontender Cardiovascular: Regular rate, Regular rhythm, No murmurs Respiratory: No distress, CTA bilaterally, Chest nontender Abdomen: Soft, Nontender, Nondistended, Normal bowel sounds Back: Nontender, Normal Inspection Extremities: Nontender, No edema Skin: Normal color, No rash Neurological: Alert, Oriented x3, Cranial nerves II-XII grossly intact, Normal Strength, Normal Sensation Psychological: Normal affect, Normal Mood Diagnostic/Tx/Re-eval Clinical Impression(s) from Imaging Studies Chest X-Ray 06/05/20 00:43 IMPRESSION: Normal x-ray examination of the chest. Electronically Signed: Rufino Moise MD at 1:20 EST , Service support , Abnormal Lab Results 06/05/20 06/05/20 06/05/20 00:45 00:45 00:45 WBC 8.1 RBC 4.39 Hgb 14.6 Hct 42.8 MCV 97.5 MCH 33.3 H MCHC 34.1 RDW Std Deviation 49.7 H RDW Coeff of Arnold 13.8 Plt Count 270 MPV 8.9 Immature Gran % (Auto) 0.100 Neut % (Auto) 46.2 L Lymph % (Auto) 45.9 H [place] % (Auto) 6.2 Eos % (Auto) 0.5 Baso % (Auto) 1.1 H Absolute Neuts (auto) 3.7 Absolute Lymphs (auto) 3.71 Nucleated RBC % 0 PT 12.4 INR 1.0 APTT 27.1 Sodium 144 Potassium 3.5 Chloride 106 Carbon Dioxide 25.0 Anion Gap 13 BUN 7 Creatinine 0.70 Estim Creat Clear Calc 90.53 Est GFR (MDRD) Af Amer 111 Est GFR (MDRD) Non-Af 92 BUN/Creatinine Ratio 10.0 Glucose 91 Calcium 9.4 Troponin I < 0.015 - Rhythm Strip Rhythm Strip: Sinus Tach Rate: 110 Ectopy: None - EKG Initial EKG Interpretation: Sinus Rhythm, No Acute Injury Pattern Prior: Unchanged - Medical Decision Making The patient presents with questionable facial spasm and difficulty getting her words out. It happened at about 2:00 today. Since then, she states that she is felt generally weak. Her NIH is 0. However, given the components of expressive aphasia, stroke work-up was pursued. EKG demonstrated sinus rhythm without acute ischemic change. Screening labs are relatively unremarkable. The patient is on tramadol. I am not sure if this was a partial seizure that contributed this to her symptoms. However, she is also hypertensive and has history of high cholesterol. This could represent TIA. I do feel the most prudent plan of care will be observation for TIA work-up. The patient was discussed with the hospitalist. Impression 1. Aphasia-resolved ED Disposition - Plan for ED Patient: Referrals: Klaudia Ashley DO [Primary Care Provider] -
[2020-06-05 00:51] LABS: Absolute Lymphocyte Count 3.71 X10^3/uL (0.83-4.51); Absolute Neutrophil Count 3.7 X10^3/uL (2.0-7.7); Basophil# 0.09 X10^3/uL; Basophil% 1.1 % (0-1); Eosinophil# 0.04 X10^3/uL; Eosinophils% 0.5 % (0-5); Hematocrit 42.8 % (37-47); Hemoglobin 14.6 g/dL (12.0-15.0); Lymphocyte # 3.71 X10^3/ul (4.0); Lymphocyte % 45.9 % (19-41); Mean Corp Hgb Conc 34.1 g/dL (32-36); Mean Corpuscular Hgb 33.3 pg (27.0-32.0); Mean Corpuscular Volume 97.5 fL (81-99); Mean Platelet Vol. 8.9 fl (6.2-12.0); Monocyte% 6.2 % (0-10); NRBC Flagged by Analyzer 0 % (0-5); Neutrophil # 3.74 X10^3/uL (2.7-7.7); Neutrophil % 46.2 % (47-70); Platelet Count 270 K/mm3 (150-450); RBC Distribution Width CV 13.8 % (11.6-14.6); RBC Distribution Width SD 49.7 fl (35.1-43.9); Red Blood Count 4.39 M/mm3 (4.2-5.4); White Blood Count 8.1 K/mm3 (4.4-11.0)
[2020-06-05 01:03] LABS: Prothrombin Time (Protime)PT. 12.4 SECONDS (11.7-14.9)
[2020-06-05 01:04] LABS: Partial Thromboplast Time 27.1 Seconds (24.1-36.2)
[2020-06-05 01:19] LABS: Anion Gap 13 (5-15); BUN 7 mg/dL (7-18); Calcium,Total 9.4 mg/dL (8.5-10.1); Chloride 106 mmol/L (98-107); EST Glomerular Filtration Rate 92 mL/min (>60); Est Glom Filt Rate - Afr Amer 111 mL/min (>60); Estimated Creatinine Clearance 90.53 ml/min; Glucose 91 mg/dL (74-106); Potassium 3.5 mmol/L (3.5-5.1); Sodium Level 144 mmol/L (136-145)
--- NOTE | 2020-06-05 01:40 | PCM.HP.STD ---
Problem List (1) Aphasia Status: Acute (2) TIA (transient ischemic attack) Status: Acute History of Present Illness Date of Admission: 06/05/20 Chief Complaint: unable to speak and facial twitching The patient is a 54 year old male patient with no significant past medical history for stroke presents to the emergency room after onset of inability to speak associated with facial jerking motions. This began at approximately 2:00 this afternoon and persisted to 1230 this evening. Her significant other encouraged her to go to get medical treatment yet she resisted until this time. CT scan is negative for acute findings. All neurologic symptoms have resolved at the time of my evaluation. Laboratory studies are unremarkable. Patient will be admitted for observation and MRI in the morning. Past Medical History Allergies No Known Allergies Allergy (Verified 06/05/20 00:41) Home Medications: Ambulatory Orders Medication Instructions Recorded Clonidine HCl [Catapres] 0.2 mg PO DAILY 09/04/14 Pantoprazole Sodium [Protonix] 20 mg PO DAILY 03/23/17 Dicyclomine HCl 10 mg PO 4X/DAY 06/05/20 Folic Acid 1 mg PO DAILY 06/05/20 L.acidoph,Paracasei, B.lactis 1 ea PO DAILY 06/05/20 [Probiotic] Magnesium Oxide 400 mg PO BID 06/05/20 Potassium Chloride 10 meq PO BID 06/05/20 Surgical History: Surgical History (Last Updated 02/08/18 @ 10:37 by Lilly Kern) h/o back surgery 1999 h/o left TKA 07/24/2015 Surgical History: noncontributory Smoking Status: Never smoker - *Family History Maternal History Items: No pertinent history Review of Systems Constitutional: Denies: Chills, Fever, Weight Change HEENT: Denies: Head Aches, Sinus Congestion, Sinus Drainage Cardiovascular: Denies: Chest Pain, Palpitations Respiratory: Denies: Cough, Shortness of breath at rest, Sputum production Gastrointestinal: Denies: Abdominal Pain, Nausea, Vomiting Genitourinary: Denies: Dysuria Musculoskeletal: Reports: Leg Pain. Denies: Joint Pain, Joint Tenderness Skin: Denies: Rash, Wounds Neurological: Reports: Incoordination - legs moving rapidly. Denies: Focal weakness, Numbness, Tingling Psychiatric: Denies: Anxiety, Depression, Homicidal Ideations, Suicidal Ideations Hematologic/ Lymphatic: Denies: Easy Bruising, Easy Bleeding VTE Information - Inpt Only VTE Present on Admission: No VTE Mechan Device Prophylaxis: None VTE Pharm Prophylaxis ordered?: Yes - Physical Exam Vitals/I&O's: Vital Signs Temp Pulse Resp BP Pulse Ox 98.3 F 102 H 20 H 127/95 H 96 06/05/20 00:42 06/05/20 01:16 06/05/20 01:16 06/05/20 01:16 06/05/20 01:16 Oxygen Delivery Method Room Air Weight: 166 lb 1.187 oz Body Mass Index (BMI) 25.2 Finger Stick Blood Glucose 102 General: Alert, Oriented x3, Cooperative HEENT: Atraumatic, PERRLA, EOMI, Normocephalic Neck: Supple, No JVD, Negative Carotid Bruits Lungs: Clear to auscultation, Normal air movement Cardiovascular: Regular rate, Normal S1, Normal S2, No murmurs Abdomen: Bowel Sounds Present, Soft, Non Tender Extremities: No edema, Capillary Refill Less than 3 Seconds Skin: No rashes Musculoskeletal: No Tenderness to Palpation of Joints or Extremities Neurological: Cranial nerves II-XII grossly intact Psych/Mental Status: Appropriate, Anxious Laboratory Results 06/05/20 00:45: WBC 8.1, RBC 4.39, Hgb 14.6, Hct 42.8, MCV 97.5, MCH 33.3 H, MCHC 34.1, RDW Std Deviation 49.7 H, RDW Coeff of Arnold 13.8, Plt Count 270, MPV 8.9, Immature Gran % (Auto) 0.100, Neut % (Auto) 46.2 L, Lymph % (Auto) 45.9 H, [place] % (Auto) 6.2, Eos % (Auto) 0.5, Baso % (Auto) 1.1 H, Absolute Neuts (auto) 3.7, Absolute Lymphs (auto) 3.71, Nucleated RBC % 0 06/05/20 00:45: PT 12.4, INR 1.0, APTT 27.1 06/05/20 00:45: Sodium 144, Potassium 3.5, Chloride 106, Carbon Dioxide 25.0, Anion Gap 13, BUN 7, Creatinine 0.70, Estim Creat Clear Calc 90.53, Est GFR (MDRD) Af Amer 111, Est GFR (MDRD) Non-Af 92, BUN/Creatinine Ratio 10.0, Glucose 91, Calcium 9.4, Troponin I < 0.015 Current Medications Labetalol HCl (Labetalol (Prefilled) 20 Mg/4 Ml) 20 mg IV X1 PRN PRN Reason: BLOOD PRESSURE Assessment/Plan All Active Problems Aphasia (Acute) TIA (transient ischemic attack) (Acute) Blood per rectum (Acute) Epigastric pain (Acute) Weight gain (Acute) Plan 1. Transient ischemic attack/aphasia associated with facial twitching?admit patient for observation to progressive care unit, neuro checks per routine, MRI in the morning, all neurologic symptoms have returned to baseline with no motor deficit at this time. We will add aspirin to her regimen 2. 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 3. DVT prophylaxis?low molecular weight heparin OBSV E&M: [id number] Initial observation care L2
[2020-06-05] MEDS: HYDROcodone Bitartrate/Apap 5/325 Tablet PO (01:41)
--- NOTE | 2020-06-05 01:54 | MRI_ITS ---
STUDY: MRI BRAIN WITHOUT CONTRAST REASON FOR EXAM: Female, 54 years old. Facial jerking,unable to speak TECHNIQUE: Standardized multiplanar fat and water weighted pulse sequences were obtained. COMPARISON: CT 06/05/2020 FINDINGS: Normal size of the ventricles and extra-axial spaces for the patient''s age. Normal white matter tracts of the supratentorial brain. There is no evidence for recent intracranial ischemia or other cause of cytotoxic edema on diffusion weighted imaging (DWI). Normal T2* images of the brain without demonstrated susceptibility artifact. There is no demonstrated hemosiderin stain. Normal bilateral basal ganglia. Normal thalami. There is no extra-axial fluid accumulation. Normal flow voids within the major intracranial circulation suggesting patency by spin echo criteria. Normal sella turcica, pituitary gland, infundibular stalk, optic chiasm and hypothalamus. Normal tectal plate and pineal gland. Normal midbrain, bennett and medulla. Normal cerebellum. Normal basal cisterns. Normal bilateral temporal bones. Normal bilateral internal auditory canals. No demonstrated orbital abnormality, within the constraints of a routine brain study. Normal visualized paranasal sinuses. Normal calvarium and skull base. Normal visualized soft tissue structures. Normal visualized upper cervical spine. MRI/Brain without Contrast IMPRESSION: Normal unenhanced MRI of the brain. Electronically Signed: Nicola Fry MD at 14:38 EST Tel , Service support ,
[2020-06-05] MEDS: Acetaminophen 325 MG Tablet 650 MG PO ×2 (03:47→21:10)
[2020-06-05 05:37] LABS: Anion Gap 13 (5-15); BUN 8 mg/dL (7-18); BUN/Creat Ratio 12.2 RATIO (10-20); Calcium,Total 8.9 mg/dL (8.5-10.1); Chloride 106 mmol/L (98-107); Cholesterol 315 mg/dL (200); Creatinine, Serum 0.66 mg/dL (0.55-1.02); EST Glomerular Filtration Rate 99 mL/min (>60); Est Glom Filt Rate - Afr Amer 119 mL/min (>60); Estimated Creatinine Clearance 96.01 ml/min; Glucose 81 mg/dL (74-106); High Density Lipoprotein 132 mg/dL; Magnesium 1.6 mg/dL (1.6-2.6); Potassium 3.6 mmol/L (3.5-5.1); Sodium Level 142 mmol/L (136-145); Triglycerides 120 mg/dL; Very Low Density Lipoprotein 24 mg/dL (5-40)
--- NOTE | 2020-06-05 06:09 | NURSING ---
pt started having cp, states it is coming and going, sharp, under left breast. called for a stat ekg
--- NOTE | 2020-06-05 06:34 | EKG12_ITS ---
Test Reason : Blood Pressure : / mmHG Vent. Rate : 119 BPM Atrial Rate : 119 BPM P-R Int : 134 ms QRS Dur : 088 ms QT Int : 318 ms P-R-T Axes : 013 -25 017 degrees QTc Int : 447 ms Sinus tachycardia Leftward axis Poor R wave progression Abnormal ECG Confirmed by HENNA GÓMEZ, DAVID ([id number]), assistant film editor SILVESTRE COLLINS ([id number]) on 06/06/2020 10:53:38 AM Referred By: Confirmed By:DAVID AGUILLON MD
[2020-06-05] MEDS: Nitroglycerin (INPATIENT USE) 0.4 MG TAB.SUBL SUBLINGUAL (06:55)
[2020-06-05 08:00] LABS: Bedside Glucose 102 mg/dL (70-110)
[2020-06-05] MEDS: traMADol 50 MG Tablet PO (09:42)
[2020-06-05] MEDS: Aspirin 81 MG TAB.CHEW PO (10:00)
[2020-06-05] MEDS: cloNIDine HCl 0.2 MG Tablet PO (10:01)
[2020-06-05] MEDS: Dicyclomine 10 MG Capsule PO ×4 (10:01→21:07)
[2020-06-05] MEDS: Enoxaparin 40 MG/0.4 ML Syringe SC (10:01)
[2020-06-05] MEDS: Magnesium Chloride 64 MG Delay Rel.Tablet 128 MG PO ×2 (10:02→21:07)
[2020-06-05] MEDS: Pantoprazole Sodium 20 MG Tablet PO (10:02)
[2020-06-05 10:06] LABS: Free T3 2.4 pg/mL (2.18-3.98); T4 Free Direct 0.96 ng/dL (0.76-1.46)
[2020-06-05] MEDS: Pramipexole Di-HCl 0.125 MG Tablet PO ×3 (10:54→21:10)
[2020-06-05] MEDS: LORazepam 2 MG/ML Syringe 0.5 MG IV (10:55)
--- NOTE | 2020-06-05 14:55 | PCM.PN.HOSP ---
<Zeke Osorio - Last Filed: 06/05/20 14:55> Patient Problems: Active and Suspected Problems Aphasia (Acute) TIA (transient ischemic attack) (Acute) Reason for Visit: facial tremor Subjective: Pt presented after developing facial spasms noted by her . Today she has muscle spasms of the upper and lower extremities with burning of the BL LE. pt feels that she is very hot though she is not running a fever. She is anxious. She is somewhat tachycardic but without palpitations. No issues with conversation this AM. She initially could not have MRI due to restlessness, however this improved after having ativan, requip, and tramadol Vitals/I&O's: Vital Signs Temp Pulse Resp BP Pulse Ox 98.8 F 121 H 18 154/80 H 96 06/05/20 12:00 06/05/20 14:51 06/05/20 12:00 06/05/20 12:00 06/05/20 12:00 Oxygen Delivery Method Room Air Weight: 196 lb 10.437 oz Body Mass Index (BMI) 29.9 Finger Stick Blood Glucose 102 Intake and Output for Last 24 Hours 06/03/20 06/04/20 06/05/20 23:59 23:59 23:59 Intake Total 170 / 170 Balance 170 / 170 General: Alert, Oriented x3, Cooperative HEENT: Atraumatic, PERRLA, EOMI, Normocephalic Neck: Supple, No JVD, Negative Carotid Bruits Lungs: Clear to auscultation, Normal air movement Cardiovascular: No murmurs, Tachycardic Abdomen: Bowel Sounds Present, Soft, Non Tender Extremities: No edema, Capillary Refill Less than 3 Seconds, - - BL UE tremor, restless legs. Skin: - - diffuse mild erythema and warmth Musculoskeletal: No Tenderness to Palpation of Joints or Extremities Neurological: Cranial nerves II-XII grossly intact Psych/Mental Status: Normal Affect, Appropriate, Alert and oriented to time, place, person, mood and affect Laboratory Results 06/05/20 00:43: POC Glucose 102 06/05/20 00:45: WBC 8.1, RBC 4.39, Hgb 14.6, Hct 42.8, MCV 97.5, MCH 33.3 H, MCHC 34.1, RDW Std Deviation 49.7 H, RDW Coeff of Arnold 13.8, Plt Count 270, MPV 8.9, Immature Gran % (Auto) 0.100, Neut % (Auto) 46.2 L, Lymph % (Auto) 45.9 H, Andrew % (Auto) 6.2, Eos % (Auto) 0.5, Baso % (Auto) 1.1 H, Absolute Neuts (auto) 3.7, Absolute Lymphs (auto) 3.71, Nucleated RBC % 0 06/05/20 00:45: PT 12.4, INR 1.0, APTT 27.1 06/05/20 00:45: Sodium 144, Potassium 3.5, Chloride 106, Carbon Dioxide 25.0, Anion Gap 13, BUN 7, Creatinine 0.70, Estim Creat Clear Calc 90.53, Est GFR (MDRD) Af Amer 111, Est GFR (MDRD) Non-Af 92, BUN/Creatinine Ratio 10.0, Glucose 91, Calcium 9.4, Troponin I < 0.015 06/05/20 04:54: Sodium 142, Potassium 3.6, Chloride 106, Carbon Dioxide 23.0, Anion Gap 13, BUN 8, Creatinine 0.66, Estim Creat Clear Calc 96.01, Est GFR (MDRD) Af Amer 119, Est GFR (MDRD) Non-Af 99, BUN/Creatinine Ratio 12.2, Glucose 81, Calcium 8.9, Magnesium 1.6, Triglycerides 120, Cholesterol 315 H, LDL Cholesterol 159 H, VLDL Cholesterol 24, HDL Cholesterol 132 06/05/20 04:54: Troponin I < 0.015 06/05/20 04:56: TSH 0.20 L, Free T4 0.96, Free T3 pg/dL 2.4 06/05/20 09:58: Ammonia 21.0 Current Medications Acetaminophen (Acetaminophen 325 Mg Tablet) 650 mg PO Q6H PRN PRN PRN Reason: Pain Score 1-10/Temp > 100.7 F Last Admin: 06/05/20 03:47 Dose: 650 mg Documented by: Aspirin (Aspirin 81 Mg Tab.Chew) 81 mg PO DAILY@0800 [facility] Last Admin: 06/05/20 10:00 Dose: 81 mg Documented by: Clonidine (Clonidine Hcl 0.2 Mg Tablet) 0.2 mg PO DAILY [facility] Last Admin: 06/05/20 10:01 Dose: 0.2 mg Documented by: Dicyclomine HCl (Dicyclomine 10 Mg Capsule) 10 mg PO 4X/DAY [facility] Last Admin: 06/05/20 10:01 Dose: 10 mg Documented by: Enoxaparin Sodium (Enoxaparin 40 Mg/0.4 Ml Syringe) 40 mg SC DAILY [facility] Last Admin: 06/05/20 10:01 Dose: 40 mg Documented by: Hydralazine HCl (Hydralazine 20 Mg/Ml Vial) 5 mg IV Q30M PRN PRN Reason: to maintain BP goals Sodium Chloride () 250 mls @ 15 mls/hr IV .[id number] PRN PRN Reason: Saline Flush Sodium Chloride () 250 mls @ 15 mls/hr IV .[id number] PRN PRN Reason: Additional IVPB Infusion Labetalol HCl (Labetalol (Prefilled) 20 Mg/4 Ml) 10 - 20 mg IV Q10M PRN PRN PRN Reason: to Maintain BP Goals Magnesium Chloride (Magnesium Chloride 64 Mg Delay Rel.Tablet) 128 mg PO BID [facility] Last Admin: 06/05/20 10:02 Dose: 128 mg Documented by: Ondansetron HCl (Ondansetron 4 Mg/2 Ml Vial) 4 mg IV Q8H PRN PRN PRN Reason: NAUSEA/VOMITING Pantoprazole Sodium (Pantoprazole Sodium 20 Mg Tablet) 20 mg PO DAILY [facility] Last Admin: 06/05/20 10:02 Dose: 20 mg Documented by: Potassium Chloride (Potassium Chloride 10 Meq Tablet) 10 meq PO BIDCM [facility] Last Admin: 06/05/20 10:00 Dose: 10 meq Documented by: Pramipexole Dihydrochloride (Pramipexole Di-Hcl 0.125 Mg Tablet) 0.125 mg PO TID [facility] Last Admin: 06/05/20 10:54 Dose: 0.125 mg Documented by: Sodium Chloride (0.9% Saline Lock 10 Ml Syringe) 10 - 40 ml IV UD PRN PRN Reason: SALINE FLUSH Tramadol HCl (Tramadol 50 Mg Tablet) 50 mg PO 4X/DAY PRN PRN Reason: Pain Score 6-10 STROKE Vital Signs/Narrative: Vital Signs Temp Pulse Resp BP Pulse Ox 06/05/20 14:51 121 H 06/05/20 12:00 98.8 F 115 H 18 154/80 H 96 06/05/20 11:00 128 H Medical Necessity - Tobacco Use Smoking Status: Former smoker Assessment/Plan All Active Problems Aphasia (Acute) TIA (transient ischemic attack) (Acute) Blood per rectum (Acute) Epigastric pain (Acute) Weight gain (Acute) 1. Tremor, aphasia - aphasia resolved - tremor is BL upper and lower extremities. MRI normal. Improved with ativan, requip, tramadol. She is prescribed 150 tabs tramadol q 30 days so 5x per day. Opiate withdrawal is a possibility. She last filled this in november and would have run out approximately 05/27. Consult [facility] neuro for tremor. Leg spasms and burning concerning for RLS. TSH low however t3/4 normal. Ammonia normal. 2. Chronic leg pain - pt states no specific etiology but was on tramadol 5x/day for this. Would have run out 05/27 per [facility] report. Pulses in BLE are normal so doubt claudication. 3. HTN - catapres 4. GERD - ppi DVT ppx: lovenox This patient was seen by Zeke Osorio PA-C under the supervision of Dr. Hernandez. <Thanh Hernandez - Last Filed: 06/05/20 15:13> Vitals/I&O's: Vital Signs Temp Pulse Resp BP Pulse Ox 98.8 F 121 H 18 154/80 H 96 06/05/20 12:00 06/05/20 14:51 06/05/20 12:00 06/05/20 12:00 06/05/20 12:00 Oxygen Delivery Method Room Air Weight: 89.2 kg Body Mass Index (BMI) 29.9 Finger Stick Blood Glucose 102 Intake and Output for Last 24 Hours 06/03/20 06/04/20 06/05/20 23:59 23:59 23:59 Intake Total 170 / 170 Balance 170 / 170 Laboratory Results 06/05/20 00:43: POC Glucose 102 06/05/20 00:45: WBC 8.1, RBC 4.39, Hgb 14.6, Hct 42.8, MCV 97.5, MCH 33.3 H, MCHC 34.1, RDW Std Deviation 49.7 H, RDW Coeff of Arnold 13.8, Plt Count 270, MPV 8.9, Immature Gran % (Auto) 0.100, Neut % (Auto) 46.2 L, Lymph % (Auto) 45.9 H, Andrew % (Auto) 6.2, Eos % (Auto) 0.5, Baso % (Auto) 1.1 H, Absolute Neuts (auto) 3.7, Absolute Lymphs (auto) 3.71, Nucleated RBC % 0 06/05/20 00:45: PT 12.4, INR 1.0, APTT 27.1 06/05/20 00:45: Sodium 144, Potassium 3.5, Chloride 106, Carbon Dioxide 25.0, Anion Gap 13, BUN 7, Creatinine 0.70, Estim Creat Clear Calc 90.53, Est GFR (MDRD) Af Amer 111, Est GFR (MDRD) Non-Af 92, BUN/Creatinine Ratio 10.0, Glucose 91, Calcium 9.4, Troponin I < 0.015 06/05/20 04:54: Sodium 142, Potassium 3.6, Chloride 106, Carbon Dioxide 23.0, Anion Gap 13, BUN 8, Creatinine 0.66, Estim Creat Clear Calc 96.01, Est GFR (MDRD) Af Amer 119, Est GFR (MDRD) Non-Af 99, BUN/Creatinine Ratio 12.2, Glucose 81, Calcium 8.9, Magnesium 1.6, Triglycerides 120, Cholesterol 315 H, LDL Cholesterol 159 H, VLDL Cholesterol 24, HDL Cholesterol 132 06/05/20 04:54: Troponin I < 0.015 06/05/20 04:56: TSH 0.20 L, Free T4 0.96, Free T3 pg/dL 2.4 06/05/20 09:58: Ammonia 21.0 Current Medications Acetaminophen (Acetaminophen 325 Mg Tablet) 650 mg PO Q6H PRN PRN PRN Reason: Pain Score 1-10/Temp > 100.7 F Last Admin: 06/05/20 03:47 Dose: 650 mg Documented by: Aspirin (Aspirin 81 Mg Tab.Chew) 81 mg PO DAILY@0800 [facility] Last Admin: 06/05/20 10:00 Dose: 81 mg Documented by: Clonidine (Clonidine Hcl 0.2 Mg Tablet) 0.2 mg PO DAILY [facility] Last Admin: 06/05/20 10:01 Dose: 0.2 mg Documented by: Dicyclomine HCl (Dicyclomine 10 Mg Capsule) 10 mg PO 4X/DAY [facility] Last Admin: 06/05/20 10:01 Dose: 10 mg Documented by: Enoxaparin Sodium (Enoxaparin 40 Mg/0.4 Ml Syringe) 40 mg SC DAILY [facility] Last Admin: 06/05/20 10:01 Dose: 40 mg Documented by: Hydralazine HCl (Hydralazine 20 Mg/Ml Vial) 5 mg IV Q30M PRN PRN Reason: to maintain BP goals Sodium Chloride () 250 mls @ 15 mls/hr IV .[id number] PRN PRN Reason: Saline Flush Sodium Chloride () 250 mls @ 15 mls/hr IV .[id number] PRN PRN Reason: Additional IVPB Infusion Labetalol HCl (Labetalol (Prefilled) 20 Mg/4 Ml) 10 - 20 mg IV Q10M PRN PRN PRN Reason: to Maintain BP Goals Magnesium Chloride (Magnesium Chloride 64 Mg Delay Rel.Tablet) 128 mg PO BID [facility] Last Admin: 06/05/20 10:02 Dose: 128 mg Documented by: Ondansetron HCl (Ondansetron 4 Mg/2 Ml Vial) 4 mg IV Q8H PRN PRN PRN Reason: NAUSEA/VOMITING Pantoprazole Sodium (Pantoprazole Sodium 20 Mg Tablet) 20 mg PO DAILY [facility] Last Admin: 06/05/20 10:02 Dose: 20 mg Documented by: Potassium Chloride (Potassium Chloride 10 Meq Tablet) 10 meq PO BIDCM [facility] Last Admin: 06/05/20 10:00 Dose: 10 meq Documented by: Pramipexole Dihydrochloride (Pramipexole Di-Hcl 0.125 Mg Tablet) 0.125 mg PO TID [facility] Last Admin: 06/05/20 10:54 Dose: 0.125 mg Documented by: Sodium Chloride (0.9% Saline Lock 10 Ml Syringe) 10 - 40 ml IV UD PRN PRN Reason: SALINE FLUSH Tramadol HCl (Tramadol 50 Mg Tablet) 50 mg PO 4X/DAY PRN PRN Reason: Pain Score 6-10 STROKE Vital Signs/Narrative: Vital Signs Temp Pulse Resp BP Pulse Ox 06/05/20 14:51 121 H 06/05/20 12:00 98.8 F 115 H 18 154/80 H 96 Assessment/Plan This patient was seen in conjunction with Zeke Jo PA-C . I have independently interviewed and examined the patient and reviewed pertinent historical, laboratory, and other data. Please refer to Zeke Osorio PA-C note for details of this patient's presentation, findings, and recommendations. I have reviewed Zeke Osorio PA-C note and concur with documented findings. In brief, patient is a 54-year-old lady who presented with significant tremor and aphasia. There was a suspicion of possible CVA admitted to a monitored bed for subsequent work-up Physical Examination: GENERAL: Appears anxious HEENT: Atraumatic; EYES; Anicteric, Normal Conjunctiva NECK; supple, normal thyroid, RESPIRATORY: Diminished to auscultation CARDIOVASCULAR: Regular S1 S2, GI: soft, normoactive bowel sounds, : No Renal angle tenderness; EXTREMITIES: No edema, no clubbing, MUSCULOSKELETAL: no muscle waisting NEURO: Awake; no lateralizing signs. SKIN: No Rash PSYCH; anxious Assessment: Possible TIA?aphasia resolved 2. Tremors 3. Suspected anxiety attack 4. Chronic leg pain 5. Essential hypertension 6. GERD 7. Abnormal TSH 8. DVT prophylaxis Recommendations: 1. I have discussed the results of my overview and impressions with the patient 2. Options for management were reviewed OBSV E&M: 46183 Subsequent observation care L3
--- NOTE | 2020-06-05 15:01 | TELEMED_ITS ---
[facility] Telemed has confirmed receipt of a request for visit. This document confirms receipt of the order initiating the consult. To find the results of the consultation, please view the patient's reports for the scanned Telemed Consult.
[2020-06-05 16:51] LABS: Vitamin B12 404 pg/mL (211-911)
[2020-06-05] MEDS: LORazepam 0.5 MG Tablet PO (21:10)
[2020-06-06] VITALS (9 sets, daily range): BP systolic 112–174; BP diastolic 67–96; PULSE 79–104; RESP 14–18; TEMP 36.7–37.1; O2SAT 97–99
[2020-06-06] MEDS: hydrALAZINE 20 MG/ML Vial 10 MG IV (00:44)
[2020-06-06] MEDS: 0.9% Saline Lock 10 ML Syringe IV (00:45)
[2020-06-06] MEDS: cloNIDine HCl 0.2 MG Tablet PO ×2 (04:07→08:58)
[2020-06-06] MEDS: Pramipexole Di-HCl 0.125 MG Tablet PO ×2 (05:07→14:44)
[2020-06-06] MEDS: Aspirin 81 MG TAB.CHEW PO (08:51)
[2020-06-06] MEDS: Magnesium Chloride 64 MG Delay Rel.Tablet 128 MG PO (08:51)
[2020-06-06] MEDS: Enoxaparin 40 MG/0.4 ML Syringe SC (08:52)
[2020-06-06] MEDS: Dicyclomine 10 MG Capsule PO ×2 (08:52→14:44)
[2020-06-06] MEDS: Pantoprazole Sodium 20 MG Tablet PO (08:52)
--- NOTE | 2020-06-06 09:21 | CASEMGMT ---
SW did not complete a PHQ 9 as per Physician Supervising Nurse she did not have a Stroke or TIA. Bonita BATES MSW
[2020-06-06] MEDS: traMADol 50 MG Tablet PO (14:46)
--- NOTE | 2020-06-06 15:12 | DS.PCM_ITS ---
<Zeke Osorio - Last Filed: 06/06/20 15:12> Discharge Date and Diagnosis - Problem List Patient Problems: Active and Suspected Problems Aphasia (Acute) TIA (transient ischemic attack) (Acute) Date of Admission: 06/05/20 Date of Discharge: 06/06/20 - Primary Discharge Diagnosis Acute Problems: Active Problems CVA ruled out Seizure ruled out tremor unclear etiology borderline low B12 anxiety Hospital Course and Treatment Imaging Results: CT/Brain/Head without Contrast IMPRESSION: Normal unenhanced CT scan of the brain. RAD/Chest 1 View IMPRESSION: Normal x-ray examination of the chest. MRI/Brain without Contrast IMPRESSION: Normal unenhanced MRI of the brain. EEG: No seizure activity. Study suggestive of mild diffuse encephalopathy based on slow generalized pattern on normal background rhythm. Consults: Neuro - [facility] Teleneuro Operations: None Procedures: None Summary of Care Provided: Hospital course: The patient is a 54 year old F with pmhx of chronic leg pain, HTN, GERD, who presented to the ER with inability to speak and tremors of the face, upper and lower extremities. In the ER she had negative CT mirna and was admitted with concern for TIA. The patient had ongoing severe tremor with speaking difficulties the following day. She complained of burning leg pain and muscle spasms of the arms and legs, flushing/hot flashes, anxiety. She had low TSH however normal T4/T3. She completed menopause over a year ago. She initially was too tremulous to go for MRI but improved with ativan, requip, and tramadol. MRI brain showed no stroke. She had borderline low mag which was supplemented, she had a normal ammonia, normal folate, borderline low B12. She has good peripheral pulses so I dont feel that her burning leg pain is due to PAD. [facility] tele neuro was consulted. They did not feel this was a TIA. They recommended EEG, to supplement her borderline low B12, to start hydroxyzine for anxiety, and to discontinue tramadol. She had no seizure activity on EEG. She was prescribed hydroxyzine for anxiety and b12 supplementation. She was advised to follow up with her PCP in 1 week. She was discharged home in stable condition. This patient was seen by Zeke Osorio PA-C under the supervision of Doctor Hernandez. [] Patient Problems: Active and Suspected Problems Aphasia (Acute) TIA (transient ischemic attack) (Acute) - Physical Exam Vitals/I&O's: Vital Signs Temp Pulse Resp BP Pulse Ox 98.1 F 79 14 112/67 99 06/06/20 14:43 06/06/20 14:43 06/06/20 14:43 06/06/20 14:43 06/06/20 14:43 Oxygen Delivery Method Room Air Weight: 196 lb 10.437 oz Body Mass Index (BMI) 29.9 Finger Stick Blood Glucose 102 Intake and Output for Last 24 Hours 06/04/20 06/05/20 06/06/20 23:59 23:59 23:59 Intake Total 734 / 734 100 / 100 Balance 734 / 734 100 / 100 General: Alert, Oriented x3, Cooperative HEENT: Atraumatic, PERRLA, EOMI, Normocephalic Neck: Supple, No JVD, Negative Carotid Bruits Lungs: Clear to auscultation, Normal air movement Cardiovascular: Regular rate, No murmurs Abdomen: Bowel Sounds Present, Soft, Non Tender Extremities: No edema, Capillary Refill Less than 3 Seconds Skin: No rashes, No breakdown Musculoskeletal: No Tenderness to Palpation of Joints or Extremities Neurological: Cranial nerves II-XII grossly intact Psych/Mental Status: Normal Affect, Appropriate, Alert and oriented to time, place, person, mood and affect Laboratory Results 06/05/20 00:45: Vitamin B12 404 06/06/20 09:15: Folate 40.60 Current Medications Acetaminophen (Acetaminophen 325 Mg Tablet) 650 mg PO Q6H PRN PRN PRN Reason: Pain Score 1-10/Temp > 100.7 F Last Admin: 06/05/20 21:10 Dose: 650 mg Documented by: Aspirin (Aspirin 81 Mg Tab.Chew) 81 mg PO DAILY@0800 [facility] Last Admin: 06/06/20 08:51 Dose: 81 mg Documented by: Clonidine (Clonidine Hcl 0.2 Mg Tablet) 0.2 mg PO DAILY [facility] Last Admin: 06/06/20 08:58 Dose: 0.2 mg Documented by: Cyanocobalamin (Cyanocobalamin 500 Mcg Tablet) 500 mcg PO DAILY@0800 [facility] Dicyclomine HCl (Dicyclomine 10 Mg Capsule) 10 mg PO 4X/DAY [facility] Last Admin: 06/06/20 14:44 Dose: 10 mg Documented by: Enoxaparin Sodium (Enoxaparin 40 Mg/0.4 Ml Syringe) 40 mg SC DAILY [facility] Last Admin: 06/06/20 08:52 Dose: 40 mg Documented by: Hydralazine HCl (Hydralazine 20 Mg/Ml Vial) 10 mg IV Q4H PRN PRN PRN Reason: SBP > 160 Last Admin: 06/06/20 00:44 Dose: 10 mg Documented by: Hydroxyzine Pamoate (Hydroxyzine Janine 25 Mg Capsule) 25 mg PO 4X/DAY PRN PRN PRN Reason: ANXIETY Sodium Chloride () 250 mls @ 15 mls/hr IV .[id number] PRN PRN Reason: Saline Flush Sodium Chloride () 250 mls @ 15 mls/hr IV .[id number] PRN PRN Reason: Additional IVPB Infusion Labetalol HCl (Labetalol (Prefilled) 20 Mg/4 Ml) 10 - 20 mg IV Q10M PRN PRN PRN Reason: to Maintain BP Goals Magnesium Chloride (Magnesium Chloride 64 Mg Delay Rel.Tablet) 128 mg PO BID [facility] Last Admin: 06/06/20 08:51 Dose: 128 mg Documented by: Ondansetron HCl (Ondansetron 4 Mg/2 Ml Vial) 4 mg IV Q8H PRN PRN PRN Reason: NAUSEA/VOMITING Pantoprazole Sodium (Pantoprazole Sodium 20 Mg Tablet) 20 mg PO DAILY [facility] Last Admin: 06/06/20 08:52 Dose: 20 mg Documented by: Potassium Chloride (Potassium Chloride 10 Meq Tablet) 10 meq PO BIDCM [facility] Last Admin: 06/06/20 08:51 Dose: 10 meq Documented by: Pramipexole Dihydrochloride (Pramipexole Di-Hcl 0.125 Mg Tablet) 0.125 mg PO TID [facility] Last Admin: 06/06/20 14:44 Dose: 0.125 mg Documented by: Sodium Chloride (0.9% Saline Lock 10 Ml Syringe) 10 - 40 ml IV UD PRN PRN Reason: SALINE FLUSH Last Admin: 06/06/20 00:45 Dose: 10 ml Documented by: Tramadol HCl (Tramadol 50 Mg Tablet) 50 mg PO TID [facility] Last Admin: 11/04/20 14:46 Dose: 50 mg Documented by: Discharge Diet: Low fat/ Low Cholesterol, 2000 mg Sodium Diet Discharge Activity: Return to Normal Activity Home Medications: Medications to take at Discharge Clonidine HCl [Catapres] 0.2 mg PO DAILY 09/04/14 Pantoprazole Sodium [Protonix] 20 mg PO DAILY 03/23/17 Acetaminophen [Tylenol] 650 mg PO DAILY 06/05/20 Dicyclomine HCl 10 mg PO 4X/DAY 06/05/20 Folic Acid 1 mg PO DAILY 06/05/20 LJessieacidophZunilda, B.lactis [Probiotic] 1 ea PO DAILY 06/05/20 Magnesium Oxide 400 mg PO BID 06/05/20 Potassium Chloride 10 meq PO BID 06/05/20 Cyanocobalamin [Vitamin B12] 500 mcg PO DAILY@0800 #30 tab 06/06/20 hydrOXYzine pamoate capsule [Vistaril pamoate capsule] 25 mg PO 4X/DAY PRN PRN #120 cap 06/06/20 Following Prescriptions Were Given to Patient: hydrOXYzine pamoate capsule [Vistaril pamoate capsule] 25 mg PO 4X/DAY PRN PRN #120 cap PRN Reason: Anxiety Transmission Status: Received by [id number] Cyanocobalamin [Vitamin B12] 500 mcg PO DAILY@0800 #30 tab Transmission Status: Received by [id number] Primary Care Physician: Klaudia Ashley DO [Primary Care Provider] - Please follow up with your Primary Care Physician in: 1 week Disposition: Home Minutes spent on discharge:: 35 Patient Condition:: Stable Medical Necessity - Tobacco Use Smoking Status: Former smoker Meaningful Use Info Meaningful Use Diagnoses (Choose all that apply): None applicable <Thanh Hernandez - Last Filed: 06/06/20 18:07> Discharge Date and Diagnosis - Primary Discharge Diagnosis Acute Problems: Active Problems Aphasia (Acute) TIA (transient ischemic attack) (Acute) Hospital Course and Treatment Summary of Care Provided: This patient was seen in conjunction with Zeke Osorio PA-C . I have independently interviewed and examined the patient and reviewed pertinent historical, laboratory, and other data. Please refer to Zeke Osorio PA-C note for details of this patient's presentation, findings, and recommendations. I have reviewed Zeke Osorio PA-C note and concur with documented findings. In brief, patient is a 54-year-old lady who presented with significant tremor and aphasia. There was a suspicion of possible CVA admitted to a monitored bed for subsequent work-up Assessment: 1. Possible TIA?aphasia resolved 2. Tremors 3. Suspected anxiety attack 4. Chronic leg pain 5. Essential hypertension 6. GERD 7. Abnormal TSH 8. DVT prophylaxis Hospital Course; as documented above - Physical Exam Vitals/I&O's: Vital Signs Temp Pulse Resp BP Pulse Ox 98.1 F 88 14 112/67 99 06/06/20 14:43 06/06/20 15:02 06/06/20 14:43 06/06/20 14:43 06/06/20 14:43 Oxygen Delivery Method Room Air Weight: 89.2 kg Body Mass Index (BMI) 29.9 Finger Stick Blood Glucose 102 Intake and Output for Last 24 Hours 06/04/20 06/05/20 06/06/20 23:59 23:59 23:59 Intake Total 734 / 734 100 / 100 Balance 734 / 734 100 / 100 Laboratory Results 06/06/20 09:15: Folate 40.60 OBSV E&M: [id number] Observation care discharge
--- NOTE | 2020-06-06 15:12 | PCM.DC ---
- Discharge Diagnoses Current Active Problems: Current Active and Chronic Problems Aphasia (Acute) TIA (transient ischemic attack) (Acute) You will use the following diet at home:: Cardiac Your food should be the consistency of: Regular Your liquids should be the consistency of: Regular/Thin Discharge Activity: Return to Normal Activity Allergies/Adverse Reactions: Allergies methotrexate Adverse Reaction (Verified 06/05/20 03:12) Rash Medications to take at Discharge Clonidine HCl [Catapres] 0.2 mg PO DAILY 09/04/14 Pantoprazole Sodium [Protonix] 20 mg PO DAILY 03/23/17 Acetaminophen [Tylenol] 650 mg PO DAILY 06/05/20 Dicyclomine HCl 10 mg PO 4X/DAY 06/05/20 Folic Acid 1 mg PO DAILY 06/05/20 L.acidoph,Paracasei, B.lactis [Probiotic] 1 ea PO DAILY 06/05/20 Magnesium Oxide 400 mg PO BID 06/05/20 Potassium Chloride 10 meq PO BID 06/05/20 Cyanocobalamin [Vitamin B12] 500 mcg PO DAILY@0800 #30 tab 06/06/20 hydrOXYzine pamoate capsule [Vistaril pamoate capsule] 25 mg PO 4X/DAY PRN PRN #120 cap 06/06/20 The following prescriptions were given: hydrOXYzine pamoate capsule [Vistaril pamoate capsule] 25 mg PO 4X/DAY PRN PRN #120 cap PRN Reason: Anxiety Transmission Status: Sent to [id number] Cyanocobalamin [Vitamin B12] 500 mcg PO DAILY@0800 #30 tab Transmission Status: Sent to [id number] Primary Care Physician: Klaudia Ashley DO [Primary Care Provider] - Please follow up with your Primary Care Physician in: 1 week Test Results: Test results from this visit will be discussed in further detail at your follow-up appointment, if applicable. Proposed Discharge Date: 06/06/20
--- NOTE | 2020-06-06 15:16 | CASEMGMT ---
This RN JACOB to room with [facility]OWLEY form at this time, explanation done-pt voices understanding, and signs [facility]OW[facility] form at this time. Original to chart and copy to pt at this time. MCR IP vs OBS booklet to pt at this time. Pt voices no further questions/concerns/needs at this time. SStaten RACHEL JAMES
--- NOTE | 2020-06-06 16:05 | CASEMGMT ---
Per therapy, pt has no need for any further therapy at this time. Pt states on concerns with going home at discharge. Mike RAMOS CM
== END 2020-06-06 15:12 | disposition home or self-care (01) ==
LOC: ED 01:27 → PCU 03:27
PROVIDERS: Physician Assistant; Admitting Provider Family Medicine; Emergency Provider Emergency Medicine; PCP Family Medicine; Visit Provider Internal Medicine
DX: G45.9 Transient cerebral ischemic attack, unspecified (principal); R53.1 Weakness; R47.01 Aphasia; R25.1 Tremor, unspecified; F41.9 Anxiety disorder, unspecified; Z79.899 Other long term (current) drug therapy; E78.5 Hyperlipidemia, unspecified; I10 Essential (primary) hypertension; R29.818 Other symptoms and signs involving the nervous system; M19.90 Unspecified osteoarthritis, unspecified site; G89.29 Other chronic pain; K21.9 Gastro-esophageal reflux disease without esophagitis; R94.6 Abnormal results of thyroid function studies; M62.838 Other muscle spasm; R23.2 Flushing; M79.606 Pain in leg, unspecified
CPT/HCPCS: 36415; 70450; 70551; 71045; 80048; 80061; 82140; 82607; 82746; 82962; 83735; 84439; 84443; 84481; 84484; 85025; 85610; 85730; 92610; 93005; 94762; 95819; 96372; 96374; 96375; 97162; 97166; 99218; 99285; A4216; G0378

== ENCOUNTER 2020-06-25 04:56 | Emergency (ER) | payer MEDICARE, SELFPAY ==
[2020-06-05 02:57] VITALS: BMI 29.9
[2020-06-25 04:57] VITALS: BP 157/95; PULSE 84; RESP 16; TEMP 36.7; O2SAT 97; BMI 33.1
[2020-06-25] MEDS: LORazepam 2 MG/ML Syringe 1 MG IV (05:25)
[2020-06-25 05:26] LABS: Absolute Lymphocyte Count 2.26 X10^3/uL (0.83-4.51); Absolute Neutrophil Count 1.3 X10^3/uL (2.0-7.7); Basophil# 0.04 X10^3/uL; Eosinophil# 0.08 X10^3/uL; Hematocrit 36.9 % (37-47); Hemoglobin 12.2 g/dL (12.0-15.0); Lymphocyte # 2.26 X10^3/ul (4.0); Lymphocyte % 55.3 % (19-41); Mean Corp Hgb Conc 33.1 g/dL (32-36); Mean Corpuscular Hgb 33.7 pg (27.0-32.0); Mean Corpuscular Volume 101.9 fL (81-99); Mean Platelet Vol. 9.3 fl (6.2-12.0); Monocyte# 0.39 X10^3/uL; Monocyte% 9.5 % (0-10); NRBC Flagged by Analyzer 0 % (0-5); Neutrophil # 1.31 X10^3/uL (2.7-7.7); Platelet Count 115 K/mm3 (150-450); RBC Distribution Width CV 14.2 % (11.6-14.6); Red Blood Count 3.62 M/mm3 (4.2-5.4); White Blood Count 4.1 K/mm3 (4.4-11.0)
[2020-06-25] MEDS: 0.9% Normal Saline 1,000 ML 150 ML IV (05:29)
[2020-06-25 05:43] LABS: Anion Gap 7 (5-15); BUN 9 mg/dL (7-18); BUN/Creat Ratio 18.8 RATIO (10-20); Calcium,Total 8.5 mg/dL (8.5-10.1); Chloride 108 mmol/L (98-107); Creatinine, Serum 0.48 mg/dL (0.55-1.02); EST Glomerular Filtration Rate 142 mL/min (>60); Est Glom Filt Rate - Afr Amer 172 mL/min (>60); Estimated Creatinine Clearance 122.51 ml/min; Glucose 90 mg/dL (74-106); Magnesium 1.9 mg/dL (1.6-2.6); Potassium 3.2 mmol/L (3.5-5.1); Sodium Level 145 mmol/L (136-145)
--- NOTE | 2020-06-25 06:05 | ED.VISSUMM ---
- ER Visit Summary Date of Service: 06/25/20 Chief Complaint: [Burning sensation to both legs] History of Present Illness: The patient is a 54 F [presents to the emergency department with complaint of pain in both legs. Patient states that she has this burning sensation and legs feel like they are on fire. Patient states this is been going on for about 2 days. Patient also complains of similar sensation to her hands and forearms. Patient states that she was admitted a few weeks ago for suspected TIA and was diagnosed with anxiety.] Patient does have history of hypertension and arthritis and up until 3 months ago she was on methotrexate. Patient no longer is on the methotrexate but continues to take folic acid. She is not had any new medications other than a as needed anxiety medication for which she cannot remember the name of. Patient denies recent illness. She states that she drank some vodka and orange juice this evening to try to help with the pain. Physical Examination: [HEENT-PERRLA, EOMI. Cranial nerves II through XII grossly intact. TMs clear. Mucous membranes moist. No adenopathy. Cardiovascular-regular rate and rhythm without murmur or ectopy Lungs-clear to auscultation, chest wall stable without crepitus or subcu emphysema Abdomen-normoactive bowel sounds, soft, nontender, no rebound or rigidity, no peritoneal signs. Extremities-intact ?4, normal range of motion, normal pulses, atraumatic. Both lower extremities are warm to the touch and have normal capillary refill. Patient is hypersensitive to touch of the skin. Deep tendon reflexes are plus 2 out of 4 bilaterally at the patella and Achilles. Patient has normal 5 extension bilaterally.] Test Results: [CBC with differential obtained showed a white blood cell count of 4.1, hemoglobin 12, hematocrit 37, platelets 115. Chemistries unremarkable. Magnesium was 1.9. Alcohol was 246.] Emergency Department Course and Treatment: [IV line established on arrival. Patient was given Ativan 1 mg IV initially.] Treatment Plan: [This point etiology of her symptoms is unclear and patient advised to follow-up with her primary care physician within next 3 to 5 days. Patient will be given a few [place] for pain however she is advised not to drink alcohol.] Disposition: [Discharged home in stable condition] Impression: [Bilateral leg pain-etiology uncertain] This note was generated with [employer] software. It may contain incorrect words, spelling, and punctuation that were not noted in review of the chart prior to signing ED Disposition - Plan for ED Patient: Referrals: Klaudia Ashley DO [Primary Care Provider] -
--- NOTE | 2020-06-25 06:09 | ED.DEP ---
ED Disposition - Plan for ED Patient: Prescriptions: Hydrocodone Bitart/Apap 5-325 [[place] 5MG-325MG] 1 tab PO Q4H PRN PRN 2 Days #10 tab PRN Reason: Pain Prescription Printed Referrals: Klaudia Ashley DO [Primary Care Provider] - 3-5 Days Additional Instructions: the reason for your leg and arm pain is unclear. Avoid alcohol and see your doctor in follow up
[2020-06-25 06:20] VITALS: BP 125/82; PULSE 81; RESP 16; O2SAT 98
== END 2020-06-25 06:29 | disposition home or self-care (01) ==
LOC: ED 05:14
PROVIDERS: Emergency Provider Emergency Medicine; PCP Family Medicine
DX: M79.604 Pain in right leg (principal); M79.605 Pain in left leg; I10 Essential (primary) hypertension; Z79.899 Other long term (current) drug therapy
CPT/HCPCS: 80048; 80320; 83735; 85025; 96361; 96374; 99284; J7030; A4216; G0480

== ENCOUNTER 2021-01-19 13:52 | Observation (INO) | payer MEDICARE, SELFPAY ==
[2021-01-19] VITALS (10 sets, daily range): BP systolic 124–181; BP diastolic 90–125; PULSE 102–122; RESP 11–24; TEMP 36.6–36.7; O2SAT 92–97; BMI 33.1; BMI 32.3
--- NOTE | 2021-01-19 13:57 | CT_ITS ---
We are attempting to reach an attending provider to discuss findings. An addendum with communication details will be sent when the communication is complete. EXAM: CT HEAD WITHOUT INTRAVENOUS CONTRAST CLINICAL INDICATION: Neuro deficit, acute, stroke suspected TECHNIQUE: Multiple axial images were obtained of the head without intravenous contrast. This CT exam was performed using one or more of the following dose reduction techniques: automated exposure control, adjustment of the mA and/or kV according to patient size, and/or use of iterative reconstruction technique. This report was created using [email or web address] report [place] [employer] technology. COMPARISON: CT head without contrast 06/05/2020. FINDINGS: BRAIN AND EXTRA-AXIAL SPACES: Unremarkable. No intra- or extra-axial hemorrhage. No evidence of acute infarct. No intracranial mass or mass effect. There is preservation of the ortega/white matter interface. Posterior fossa structures are unremarkable. Ventricles are appropriate for age. No hydrocephalus. Basal cisterns are patent. BONES/JOINTS: Unremarkable. No discrete lytic or blastic abnormalities. SINUSES: Unremarkable as visualized. Clear. MASTOID AIR CELLS: Unremarkable. Clear. ORBITS: Visualized globes, extraocular muscles, optic nerves and retrobulbar fat appear unremarkable. CT/STROKE Brain/Head without Cont IMPRESSION: 1. No CT evidence of intracranial bleeding, acute ischemic infarct or acute intracranial abnormality. 2. Total ASPECTS score: 10/10. 3. No interval change when compared to 06/05/2020. Electronically Signed: Cj Recio MD at 14:08 EDT , Service support ,
--- NOTE | 2021-01-19 13:57 | CT_ITS ---
We are attempting to reach an attending provider to discuss findings. An addendum with communication details will be sent when the communication is complete. STUDY: CTA HEAD AND NECK WITH CONTRAST REASON FOR EXAM: Female, 55 years old. Neuro deficit, acute, stroke suspected RADIATION DOSAGE (If Supplied By Facility): CTDIvol = ( 18.87 ) mGy, DLP = ( 663.24 ) mGycm TECHNIQUE: CT angiography was performed with a multi-detector CT scanner. Data acquisition was obtained from the skull base through the vertex following intravenous administration of IV 100mL Isovue-370. MIP images were reconstructed from the axial data set. Post-processing of the angiographic images was performed, with multiplanar reformation and 3D reconstruction. Individualized dose optimization techniques were used for this CT. COMPARISON: No relevant priors. FINDINGS: Normal bilateral petrous carotid arteries. Normal right cavernous carotid artery with a normal supraclinoid bifurcation. Normal left cavernous carotid artery with a normal supraclinoid bifurcation. Normal right A1 segment of the anterior cerebral artery. Normal left A1 segment of the anterior cerebral artery. Normal intact anterior communicating artery (ACOM). Normal bilateral A2 segments of the anterior cerebral arteries. Normal right M1 and M2 segments of the middle cerebral arteries, with a normal M1 bifurcation. Normal left M1 and M2 segments of the middle cerebral arteries, with a normal M1 bifurcation. No visible right posterior communicating artery (PCOM). No visible left posterior communicating artery (PCOM). Normal bilateral vertebral arteries. Normal basilar artery with a normal basilar bifurcation. The visualized bilateral superior cerebellar (SCA) arteries are normal. Normal bilateral P1, P2 and visualized P3 segments of the posterior cerebral arteries. There is no demonstrated aneurysm of the [place] of [place]. There is no demonstrated abnormality of the visualized brain. AORTIC ARCH: Normal visualized aortic arch. Normal origins of the brachiocephalic, left common carotid, and left subclavian arteries. Normal direct aortic arch origin of the left vertebral artery. RIGHT CAROTID ARTERIES: Normal right common carotid artery (CCA). Normal right internal carotid bulb. Normal origin of the right internal carotid (ICA) artery without a hemodynamically significant stenosis. Normal visualized cervical portion of the right internal carotid artery. Normal origin of the right external carotid artery (ECA). LEFT CAROTID ARTERIES: Normal left common carotid artery (CCA). Normal left internal carotid bulb. Normal origin of the left internal carotid (ICA) artery without a hemodynamically significant stenosis. Normal visualized cervical portion of the left internal carotid artery. Normal origin of the left external carotid artery (ECA). VERTEBRAL ARTERIES: Normal bilateral vertebral arteries. The left vertebral artery has a direct aortic arch origin and is nondominant. CT/STROKE CTA Head AND Neck W/Con IMPRESSION: Normal CTA Head and neck with contrast. Electronically Signed: Cj Recio MD at 14:29 EDT , Service support ,
--- NOTE | 2021-01-19 13:57 | EKG12_ITS ---
Test Reason : STROKE Blood Pressure : / mmHG Vent. Rate : 119 BPM Atrial Rate : 119 BPM P-R Int : 144 ms QRS Dur : 094 ms QT Int : 336 ms P-R-T Axes : 055 -15 042 degrees QTc Int : 472 ms Sinus tachycardia Otherwise normal ECG Confirmed by GHAZALA GÓMEZ, CHARITY ([id number]), food expeditor SILVESTRE COLLINS ([id number]) on 01/21/2021 10:42:33 A M Referred By: HEIDY Confirmed By:VERN VIVAR MD
--- NOTE | 2021-01-19 14:26 | EX.ED.DYSGE1 ---
HPI History of Present Illness Chief Complaint: Confusion Narrative Narrative: Patient was brought in by EMS under EMS stroke protocol prehospital activation, per EMS they were called to the home where the patient seemed unresponsive she was brought medially to the ED history is not fully available as the 's not here yet. Apparently something happened at home where she could not respond EMS arrived she was awake per EMS she is moving everything she would answer the questions in a slow fashion her NIH was almost 0. On arrival her NIH was 0 she was awake alert did not know why she was brought to the hospital. She underwent prehospital stroke protocol I assessed her on arrival her NIH was 0 she is awake alert moving all 4 extremities appropriately just did not know why she was here. Her subsequently arrived later Provide the following history indicates his woke up feeling fine he indicates he has a history of gastric bypass surgery chronic knee pain she is on gabapentin and tramadol. She was trying to pay a bill over the phone that was important to her to be paid today she could not find her purse she then became the very anxious she began shaking her arms up in the air because she could not find her purse to pay the bill she then became nonverbal. He states she has these episodes when she gets very upset, she continued to be nonverbal because she could not find the purse, he is frantically searched around the home found the purse showed it to her and then she basically sat back and would not respond stopped flailing her arms he called EMS and she was brought to the hospital The reports when his gets very anxious she has these types episodes he assures me she was not ill in any way. She has no history of NC PE or DVT she does have a history of intermittent abdominal pain and knee pain related to bariatric surgery and osteoarthritis of her knees no fever no cough no coronavirus exposures again no history of NC PE DVT stroke or seizure she was not incontinent At this time the patient is awake and alert I reviewed that history with her she simply states she does not remember what happened at home or why she is in the hospital and she has no complaints Stroke neurology was contacted they completed their assessment her NIH is 0 they do not believe she requires TPA they would believe she would be need to be admitted for MRI and observation, subsequently, CTA head and neck were read by radiologist showing no occlusive disease no dissection no acute gross abnormality [facility] Medical History (Updated 01/19/21 @ 14:45 by Helena Henderson) Hypertension Home Medications clonidine HCl 0.2 mg PO DAILY 09/04/14 [History Last Taken 03/24/17 07:00] pantoprazole 20 mg PO DAILY 03/23/17 [History Last Taken 03/24/17 07:00] fluoxetine 10 mg PO DAILY 01/19/21 [History Last Taken Unknown] gabapentin 100 mg PO TID 01/19/21 [History Last Taken Unknown] hydroxyzine HCl 25 mg PO 4X/DAY 01/19/21 [History Last Taken Unknown] tramadol 50 mg PO Q8H PRN 01/19/21 [History Last Taken Unknown] Allergy/AdvReac Type Severity Reaction Status Date / Time methotrexate AdvReac Rash Verified 01/19/21 14:45 Surgical History (Updated 02/08/18 @ 10:37 by Lilly Kern) h/o back surgery h/o left TKA Social History (Updated 02/14/18 @ 09:49 by John Acevedo DO) Smoking Status: Never smoker ROS ROS ED ROS Narrative Emotional upset lack of memory as above Constitutional Constitutional ED: Reports subjective, sweats and other; Denies chills, fever(s) or weight loss Eyes Eyes: Denies blurry vision or change in vision ENT ENT ED: Denies ear pain Cardiovascular Cardiovascular: Denies chest pain or palpitations Respiratory/Chest Respiratory/Chest: Denies dyspnea Gastrointestinal Gastrointestinal: Denies abdominal pain, nausea or vomiting Genitourinary Genitourinary ED: Denies dysuria or hematuria Musculoskeletal Musculoskeletal: Denies arthralgias or myalgias Integumentary Reports rash; Denies abscess Neurologic Neurologic: Denies weakness Psychiatric Psychiatric: Denies anxiety or depression Endocrine Endocrinology: Denies polydipsia or polyuria Allergic/Immunologic Allergic/Immunologic ED: Denies urticaria EXAM Physical Exam Narrative Exam Narrative: Patient's neurologic exam shows NIH of 0 awake and alert speaking normally moving all 4 extremities cranial nerves normal head neck chest abdomen was unremarkable she does have some very mild knee pain that is old and not new Const Vital Signs: 01/19/21 14:15 01/19/21 14:45 Temperature 98.0 F Temperature Source Temporal Pulse Rate 118 H 111 H Respiratory Rate 22 H 14 Blood Pressure 178/120 H 170/107 H Blood Pressure Mean 139 128 Pulse Ox 96 92 Oxygen Delivery Method Room Air Room Air MDM MDM MDM Narrative Medical decision making narrative: The patient's EKG shows a sinus rhythm rate 120 She is resting comfortably bed she has a slight resting tremor bilaterally that she states happened sometimes she has no complaints given all the above will complete her stroke evaluation labs will be evaluated discussed with hospitalist the neurologist recommendation she be admitted for MRI and observation ED screening labs are generally unremarkable see all those reports, she is awake and alert NIH is still 0 spoke with the hospitalist arrange for admission, I did give her Ativan 1 mg IV for the sense of anxiety and she is resting comfortably Admit stable Final impression transient loss of memory, situational stress Lab Data Labs: Laboratory Results - last 24 hr 01/19/21 01/19/21 01/19/21 14:15 14:15 14:15 WBC 7.7 RBC 4.11 L Hgb 12.8 Hct 38.2 MCV 92.9 MCH 31.1 MCHC 33.5 RDW Std Deviation 53.1 H RDW Coeff of Arnold 15.6 H Plt Count 121 L MPV 9.4 Immature Gran % (Auto) 0.400 Neut % (Auto) 81.0 H Lymph % (Auto) 8.0 L [place] % (Auto) 4.4 Eos % (Auto) 5.7 H Baso % (Auto) 0.5 Absolute Neuts (auto) 6.2 Absolute Lymphs (auto) 0.61 L Nucleated RBC % 0 PT 13.6 INR 1.1 APTT 23.5 L Sodium 137 Potassium 3.5 Chloride 100 Carbon Dioxide 26.0 Anion Gap 11 BUN 11 Creatinine 0.91 Estim Creat Clear Calc 68.81 Est GFR (MDRD) Af Amer 82 Est GFR (MDRD) Non-Af 68 BUN/Creatinine Ratio 12.1 Glucose 159 H Calcium 8.7 Troponin I < 0.015 Radiography Diagnostic Testing: Radiology Impression Brain CT 01/19/21 13:57 IMPRESSION: 1. No CT evidence of intracranial bleeding, acute ischemic infarct or acute intracranial abnormality. 2. Total ASPECTS score: 10/10. 3. No interval change when compared to 06/05/2020. Electronically Signed: Cj Recio MD at 14:08 EDT , Service support , ADDENDUM: 01/19/21 1415 IMPRESSION: 1. No CT evidence of intracranial bleeding, acute ischemic infarct or acute intracranial abnormality. 2. Total ASPECTS score: 10/10. 3. No interval change when compared to 06/05/2020. N.B. : The above Results were Read Back by Cj Recio MD to Timmy Avalos MD, and understanding confirmed on 01/19/2021 14:09:01 (ET). Electronically Signed: Cj Recio MD at 14:08 EDT , Service support , Head/Neck CTA 01/19/21 13:57 IMPRESSION: Normal CTA Head and neck with contrast. Electronically Signed: Cj Recio MD at 14:29 EDT , Service support , ADDENDUM: 01/19/21 1439 IMPRESSION: Normal CTA Head and neck with contrast. N.B. : The above Results were Read Back by Cj Recio MD to Michela Avalos MD, and understanding confirmed on 01/19/2021 14:32:16 (ET). Electronically Signed: Cj Recio MD at 14:29 EDT , Service support , Discharge Plan Triage Chief Complaint: Confusion ED Provider: Timmy Avalos Dx/Rx/DC Orders Prescriptions: No Action clonidine HCl 0.2 MG tablet 0.2 mg PO DAILY RF: 0 pantoprazole 20 MG tablet 20 mg PO DAILY RF: 0 tramadol 50 mg Tablet 50 mg PO Q8H PRN (Reason: Pain (Scale Score 1-3)) RF: 0 fluoxetine 10 mg Capsule 10 mg PO DAILY RF: 0 hydroxyzine HCl 25 mg Tablet 25 mg PO 4X/DAY RF: 0 gabapentin 100 mg Capsule 100 mg PO TID RF: 0 Primary Care Provider: Klaudia Ashley
[2021-01-19 14:30] LABS: Absolute Lymphocyte Count 0.61 X10^3/uL (0.83-4.51); Absolute Neutrophil Count 6.2 X10^3/uL (2.0-7.7); Basophil# 0.04 X10^3/uL; Basophil% 0.5 % (0-1); Eosinophil# 0.44 X10^3/uL; Eosinophils% 5.7 % (0-5); Hematocrit 38.2 % (37-47); Hemoglobin 12.8 g/dL (12.0-15.0); Lymphocyte # 0.61 X10^3/ul (0.83-4.51); Mean Corp Hgb Conc 33.5 g/dL (32-36); Mean Corpuscular Hgb 31.1 pg (27.0-32.0); Mean Corpuscular Volume 92.9 fL (81-99); Mean Platelet Vol. 9.4 fl (6.2-12.0); Monocyte# 0.34 X10^3/uL; Monocyte% 4.4 % (0-10); NRBC Flagged by Analyzer 0 % (0-5); Neutrophil # 6.21 X10^3/uL (2.7-7.7); Platelet Count 121 K/mm3 (150-450); RBC Distribution Width CV 15.6 % (11.6-14.6); RBC Distribution Width SD 53.1 fl (35.1-43.9); Red Blood Count 4.11 M/mm3 (4.2-5.4); White Blood Count 7.7 K/mm3 (4.4-11.0)
[2021-01-19 14:36] LABS: International Normalized Ratio 1.1; Prothrombin Time (Protime)PT. 13.6 SECONDS (11.7-14.9)
[2021-01-19 14:37] LABS: Partial Thromboplast Time 23.5 Seconds (24.1-36.2)
[2021-01-19] MEDS: 0.9% Normal Saline 1,000 ML 100 ML IV (14:43)
[2021-01-19] MEDS: LORazepam 2 MG/ML Syringe 1 MG IV (14:43)
[2021-01-19 14:46] LABS: Anion Gap 11 (5-15); BUN 11 mg/dL (7-18); BUN/Creat Ratio 12.1 RATIO (10-20); Calcium,Total 8.7 mg/dL (8.5-10.1); Chloride 100 mmol/L (98-107); Creatinine, Serum 0.91 mg/dL (0.55-1.02); EST Glomerular Filtration Rate 68 mL/min (>60); Est Glom Filt Rate - Afr Amer 82 mL/min (>60); Estimated Creatinine Clearance 68.81 ml/min; Glucose 159 mg/dL (74-106); Potassium 3.5 mmol/L (3.5-5.1); Sodium Level 137 mmol/L (136-145)
--- NOTE | 2021-01-19 14:57 | PCM.HP.STD ---
HPI - General HPI Narrative NU BASURTO, is a 55 F who was brought to the emergency department by the with sudden onset of confusion. Patient does not recall the events leading to her presenting to the ED. Per patient's patient became confused suddenly on the afternoon of her presentation.. There was no episodes of seizure activity. Patient did not pass out. Was brought to the emergency department helper CT obtained was unremarkable. A stroke alert was called and assessment of transient global amnesia was made admitted to monitored bed for subsequent management [facility] Medical History (Updated 01/19/21 @ 15:[address] Thanh Hernandez MD) Hypertension TGA (transient global amnesia) Home Medications clonidine HCl 0.2 mg PO DAILY 09/04/14 [History Last Taken 03/24/17 07:00] pantoprazole 20 mg PO DAILY 03/23/17 [History Last Taken 03/24/17 07:00] fluoxetine 10 mg PO DAILY 01/19/21 [History Last Taken Unknown] gabapentin 100 mg PO TID 01/19/21 [History Last Taken Unknown] hydroxyzine HCl 25 mg PO 4X/DAY 01/19/21 [History Last Taken Unknown] tramadol 50 mg PO Q8H PRN 01/19/21 [History Last Taken Unknown] Allergy/AdvReac Type Severity Reaction Status Date / Time methotrexate AdvReac Rash Verified 01/19/21 14:45 Family History (Updated 01/19/21 @ 15:[address] Thanh Hernandez MD) Father Hypertension Mother Hypertension Surgical History (Updated 02/08/18 @ 10:37 by Lilly Kern) h/o back surgery h/o left TKA Social History (Updated 02/14/18 @ 09:49 by John Acevedo DO) Smoking Status: Never smoker ROS ROS Narrative GENERAL: denies fever, chills, HEENT: denies headache, sinus congestion, RESPIRATORY: denies cough, sputum production, CARDIAC: denies chest pain, palpitations, orthopnea, GASTROINTESTINAL: denies abdominal pain, nausea, GENITOURINARY: denies dysuria, urgency, frequency, EXTREMITY: denies swelling MUSCULOSKELETAL: denies current joint pain or tenderness NEUROLOGIC: denies focal numbness, weakness, tingling HEMATOLOGIC: denies easy bruising and/or hemorrhage INTEGUMENT: denies rashes PSYCHIATRIC: denies suicidal or homicidal ideation Vital Signs Vital Signs Vital Signs: 01/19/21 14:15 01/19/21 14:45 Temperature 98.0 F Temperature Source Temporal Pulse Rate 118 H 111 H Respiratory Rate 22 H 14 Blood Pressure 178/120 H 170/107 H Blood Pressure Mean 139 128 Pulse Ox 96 92 Oxygen Delivery Method Room Air Room Air Weight Weight: 98.9 kg Body Mass Index (BMI) 33.1 Physical Exam Narrative GENERAL: cooperative HEENT: Atraumatic; EYES; Anicteric, Normal Conjunctiva NECK; supple, normal thyroid, RESPIRATORY: Diminished to auscultation CARDIOVASCULAR: Regular S1 S2, GI: soft, normoactive bowel sounds, : No Renal angle tenderness; EXTREMITIES: No edema, no clubbing, MUSCULOSKELETAL: no muscle waisting NEURO: Awake; no lateralizing signs. SKIN: No Rash PSYCH; Flat affect Results Lab / Micro Data Result Diagrams: 01/19/21 14:15 01/19/21 14:15 Labs: Laboratory Results - last 24 hr 01/19/21 01/19/21 01/19/21 14:15 14:15 14:15 WBC 7.7 RBC 4.11 L Hgb 12.8 Hct 38.2 MCV 92.9 MCH 31.1 MCHC 33.5 RDW Std Deviation 53.1 H RDW Coeff of Arnold 15.6 H Plt Count 121 L MPV 9.4 Immature Gran % (Auto) 0.400 Neut % (Auto) 81.0 H Lymph % (Auto) 8.0 L [place] % (Auto) 4.4 Eos % (Auto) 5.7 H Baso % (Auto) 0.5 Absolute Neuts (auto) 6.2 Absolute Lymphs (auto) 0.61 L Nucleated RBC % 0 PT 13.6 INR 1.1 APTT 23.5 L Sodium 137 Potassium 3.5 Chloride 100 Carbon Dioxide 26.0 Anion Gap 11 BUN 11 Creatinine 0.91 Estim Creat Clear Calc 68.81 Est GFR (MDRD) Af Amer 82 Est GFR (MDRD) Non-Af 68 BUN/Creatinine Ratio 12.1 Glucose 159 H Calcium 8.7 Troponin I < 0.[address] 01/19/21 13:57 IMPRESSION: 1. No CT evidence of intracranial bleeding, acute ischemic infarct or acute intracranial abnormality. 2. Total ASPECTS score: 10/10. 3. No interval change when compared to 06/05/2020. Electronically Signed: Cj Recio MD at 14:08 EDT , Service support , ADDENDUM: 01/19/21 1415 IMPRESSION: 1. No CT evidence of intracranial bleeding, acute ischemic infarct or acute intracranial abnormality. 2. Total ASPECTS score: 10/10. 3. No interval change when compared to 06/05/2020. N.B. : The above Results were Read Back by Cj Recio MD to Timmy Avalos MD, and understanding confirmed on 01/19/2021 14:09:01 (ET). Electronically Signed: Cj Recio MD at 14:08 EDT , Service support , Head/Neck CTA 01/19/21 13:57 IMPRESSION: Normal CTA Head and neck with contrast. Electronically Signed: Cj Recio MD at 14:29 EDT , Service support , ADDENDUM: 01/19/21 1439 IMPRESSION: Normal CTA Head and neck with contrast. N.B. : The above Results were Read Back by Cj Recio MD to Michela Avalos MD, and understanding confirmed on 01/19/2021 14:32:16 (ET). Electronically Signed: Cj Recio MD at 14:29 EDT , Service support , Assessment & Plan Assessment/Plan (1) TGA (transient global amnesia): PLAN: Patient is a 55-year-old lady admitted with sudden onset of confusion 1. Suspected transient global amnesia ?Patient has been admitted to monitored bed undergoing subsequent evaluation with every 4 neurochecks as well as MRI of the brain. CTA of the head obtained was unremarkable. As part of a management patient was started on statin therapy and aspirin and 2D echo ordered. Patient is also on a bunch of psychotropic medications including gabapentin tramadol hydroxyzine this could also explain for her confusion 2. GERD ?On PPI 3. Generalized osteoarthritis ?Patient was on gabapentin and tramadol held 4. Obesity with BMI of 33.2 ?Weight loss advised 5. Depression ?Patient is on Prozac 6. DVT prophylaxis - On enoxaparin Charges/Coding Visit Charges OBSV E&M: 27796 Initial observation care L3
[2021-01-19 15:55] LABS: Thyroid Stim Hormone (TSH) 0.75 uIU/mL (0.358-3.74)
[2021-01-19 16:06] LABS: Alcohol, Blood (Medical)-Serum < 3.0 mg/dL
--- NOTE | 2021-01-19 16:24 | ECHOD_ITS ---
Reason For Study: TIA/CVA Procedure This was a 2D Doppler, Color Flow transthoracic echocardiogram. The study was technically difficult. Exam performed portable in patient room. Left Ventricle Normal LV size. Left ventricular systolic function is normal. The estimated ejection fraction is 60 %. Stage 1 diastolic dysfunction. No regional wall motion abnormalities noted. Right Ventricle Normal RV size. Normal systolic function. Atria Normal left atrium. Normal right atrium. Bubble contrast study negative for right to left interatrial shunt. Mitral Valve Normal mitral valve. Tricuspid Valve Normal tricuspid valve. Aortic Valve Normal aortic valve. Trisinus/trileaflet aortic valve. Pulmonic Valve Normal pulmonic valve. Great Vessels Normal aortic root. The pulmonary artery is normal size. Normal inferior vena cava. Pericardium/Pleural No pericardial effusion. Medication Performed a rapid injection of agitated mix of 9 cc saline and 1cc air to assess for atrial septal defect. CT negative for stroke. MMode/2D Measurements & Calculations LVIDd: 4.7 cm IVSd: 1.0 cm Ao root diam: 3.7 cm LVIDs: 3.4 cm LVPWd: 1.1 cm RVDd: 4.2 cm FS: 27.6 % LAV(MOD-bp): 58.2 ml LVAd ap4: 26.0 cm2 LVAd ap2: 22.0 cm2 LAV(MOD-bp) Indexed: 27.8 ml/m2 LVLd ap4: 7.9 cm LVLd ap2: 8.1 cm LAV(MOD-sp2): 63.0 ml EDV(MOD-sp4): 69.8 ml EDV(MOD-sp2): 53.4 ml LAV(MOD-sp4): 49.1 ml EDV(sp4-el): 72.3 ml EDV(sp2-el): 50.9 ml LVAs ap4: 13.4 cm2 LVAs ap2: 10.9 cm2 LVLs ap4: 5.6 cm LVLs ap2: 5.8 cm ESV(MOD-sp4): 26.7 ml ESV(MOD-sp2): 18.4 ml ESV(sp4-el): 27.2 ml ESV(sp2-el): 17.4 ml EF(MOD-sp4): 61.7 % EF(MOD-sp2): 65.6 % EF(sp4-el): 62.4 % SV(MOD-sp4): 43.1 ml SV(MOD-sp2): 35.0 ml SV(sp4-el): 45.1 ml LA A4 area: 17.6 cm2 LA dimension(2D): 3.9 cm RA A4 area: 17.9 cm2 Time Measurements MV dec time: 0.24 sec Doppler Measurements & Calculations MV E max gerhard: 51.5 cm/sec Lat Peak E' Gerhard: 8.6 cm/sec Med Peak E' Gerhard: 6.9 cm/sec MV A max gerhard: 65.8 cm/sec E/E' lat: 6.0 E/E' med: 7.5 MV E/A: 0.78 Ao V2 max: 163.3 cm/sec LV V1 max: 141.2 cm/sec PA V2 max: 107.7 cm/sec Ao max P.7 mmHg LV V1 max P.0 mmHg TR max gerhard: 240.6 cm/sec TR max P.2 mmHg ECHO/Echo Complete Interpretation Summary Normal LV size. Left ventricular systolic function is normal. The estimated ejection fraction is 60 %. Stage 1 diastolic dysfunction. Bubble contrast study negative for right to left interatrial shunt. Ordering Physician: Thanh Hernandez Referring Physician: DANISH CRAWFORD Performed By: Jennifer Rizzo, ROSSCS, RVT
[2021-01-19] MEDS: cloNIDine HCl 0.2 MG Tablet PO (18:14)
[2021-01-19] MEDS: Enoxaparin 40 MG/0.4 ML Syringe SC (18:15)
[2021-01-19] MEDS: Pantoprazole Sodium 20 MG Tablet PO (18:15)
[2021-01-19] MEDS: 0.9% Normal Saline 1,000 ML 75 ML IV (18:15)
--- NOTE | 2021-01-19 20:38 | CM.ED ---
JASPER Note Referral Source: Case Find Referral Reason: Stroke Alert SW met with patient's , Kit Castellanos and updated him regarding the process of assessing for stroke. He provided history. Patient provided emotional support. SW remains available if additional needs arise. Plan: Patient admitted to PCU Soniya VELÁSQUEZ
[2021-01-19] MEDS: Atorvastatin Calcium 40 MG Tablet PO (23:02)
[2021-01-20] VITALS (10 sets, daily range): BP systolic 102–145; BP diastolic 57–83; PULSE 72–92; RESP 14–16; TEMP 36.4–37; O2SAT 94–100
[2021-01-20] MEDS: 0.9% Normal Saline 1,000 ML 75 ML IV ×2 (04:00→21:46)
[2021-01-20 06:41] LABS: Amphetamine Urine VISTA NEGATIVE (<1000 ng/mL); Barbiturate Urine VISTA NEGATIVE (< 200 ng/mL); Benzodiazepine Urine VISTA NEGATIVE (< 200 ng/mL); Cocaine Urine VISTA NEGATIVE (< 300 ng/mL); Ecstacy Urine VISTA NEGATIVE (< 500 ng/mL); Methadone Urine VISTA NEGATIVE (< 300 ng/mL); PCP Urine VISTA NEGATIVE (< 25 ng/mL); THC Urine VISTA NEGATIVE (< 50 ng/mL); Vista UDS pH Range 5
[2021-01-20 07:04] LABS: Absolute Lymphocyte Count 1.92 X10^3/uL (0.83-4.51); Absolute Neutrophil Count 2.7 X10^3/uL (2.0-7.7); Basophil# 0.03 X10^3/uL; Basophil% 0.6 % (0-1); Eosinophil# 0.07 X10^3/uL; Eosinophils% 1.4 % (0-5); Hematocrit 38.5 % (37-47); Hemoglobin 12.6 g/dL (12.0-15.0); Lymphocyte # 1.92 X10^3/ul (0.83-4.51); Lymphocyte % 37.4 % (19-41); Mean Corp Hgb Conc 32.7 g/dL (32-36); Mean Corpuscular Volume 94.6 fL (81-99); Mean Platelet Vol. 10.5 fl (6.2-12.0); Monocyte# 0.44 X10^3/uL; Monocyte% 8.6 % (0-10); NRBC Flagged by Analyzer 0 % (0-5); Neutrophil # 2.66 X10^3/uL (2.7-7.7); Neutrophil % 51.8 % (47-70); Platelet Count 118 K/mm3 (150-450); RBC Distribution Width CV 15.6 % (11.6-14.6); RBC Distribution Width SD 53.9 fl (35.1-43.9); Red Blood Count 4.07 M/mm3 (4.2-5.4); White Blood Count 5.1 K/mm3 (4.4-11.0)
[2021-01-20 08:10] LABS: AST(SGOT) 62 U/L (15-37); Alanine Aminotransfer ALT/SGPT 31 U/L (13-56); Albumin, Serum 3.3 g/dL (3.2-5.0); Alkaline Phosphatase 138 U/L (45-117); Anion Gap 8 (5-15); BUN 9 mg/dL (7-18); BUN/Creat Ratio 11.7 RATIO (10-20); Bilirubin, Direct 0.46 mg/dL (0.00-0.30); Calcium,Total 8.6 mg/dL (8.5-10.1); Chloride 102 mmol/L (98-107); Cholesterol 260 mg/dL (200); Creatinine, Serum 0.77 mg/dL (0.55-1.02); EST Glomerular Filtration Rate 82 mL/min (>60); Est Glom Filt Rate - Afr Amer 99 mL/min (>60); Estimated Creatinine Clearance 81.32 ml/min; Globulin 3.7 g/dL (2.2-4.2); Glucose 89 mg/dL (74-106); High Density Lipoprotein 131 mg/dL; Magnesium 1.3 mg/dL (1.6-2.6); Potassium 2.6 mmol/L (3.5-5.1); Sodium Level 139 mmol/L (136-145); Triglycerides 119 mg/dL; Very Low Density Lipoprotein 24 mg/dL (5-40)
--- NOTE | 2021-01-20 10:00 | MRI_ITS ---
HISTORY: Transient global amnesia prev mri 06/05/20. TECHNIQUE: Multiplanar and multisequence MR images of the brain were obtained without gadolinium. # of images incl. paperwork: 282. COMPARISON: CT prior day, MRI 06/05/2020. FINDINGS: Motion artifact lowers sensitivity of the examination. BRAIN PARENCHYMA: Very mild T2 FLAIR hyperintense signal in the periventricular white matter. No abnormal focus of restricted diffusion. INTRACRANIAL HEMORRHAGE: No acute intracranial hemorrhage. CSF SPACES: Cerebral ventricles, cortical sulci, and other extra-axial CSF spaces within normal limits in size for patient's age. No midline shift or other significant mass effect. No extra-axial fluid collection. VASCULAR SYSTEM: Major intracranial flow-voids maintained. PARANASAL SINUSES AND MASTOID AIR CELLS: Clear. MRI/Brain without Contrast IMPRESSION: No evidence for acute infarct. Very mild chronic small vessel ischemic gliosis. Motion artifact. at 1314 Reported and signed by: Cecilia Snider MD Electronically Signed: Cecilia Snider MD at 13:13 EDT Tel , Service support ,
--- NOTE | 2021-01-20 10:20 | PCM.PN.HOSP ---
Subjective Subjective Patient is a 55-year-old lady admitted with transient global amnesia. Seen this a.m. patient is close to her baseline. She has been placed on telemetry for continuous monitoring was found to have runs of SVT. Diagnostic data significant for hypokalemia which is currently being repleted. Scheduled to undergo MRI and a 2D echo as part of her evaluation Objective Data Objective Data Vital Signs: Vital Signs Temp Pulse Resp BP Pulse Ox 98.4 F 84 14 145/83 H 99 01/20/21 08:42 01/20/21 08:42 01/20/21 08:42 01/20/21 08:42 01/20/21 08:42 Oxygen Delivery Method Room Air Weight: 96.3 kg Body Mass Index (BMI) 32.3 Intake & Output: Intake and Output for Last 24 Hours 01/18/21 01/19/21 01/20/21 23:59 23:59 23:59 Intake Total 845 / 845 881.25 / 881.25 Output Total 100 / 100 Balance 845 / 845 781.25 / 781.25 Lab / Micro Data Result Diagrams: 01/20/21 06:36 01/20/21 06:36 Labs: Laboratory Results - last 24 hr 01/19/21 01/19/21 01/19/21 14:15 14:15 14:15 WBC 7.7 RBC 4.11 L Hgb 12.8 Hct 38.2 MCV 92.9 MCH 31.1 MCHC 33.5 RDW Std Deviation 53.1 H RDW Coeff of Arnold 15.6 H Plt Count 121 L MPV 9.4 Immature Gran % (Auto) 0.400 Neut % (Auto) 81.0 H Lymph % (Auto) 8.0 L Boundary % (Auto) 4.4 Eos % (Auto) 5.7 H Baso % (Auto) 0.5 Absolute Neuts (auto) 6.2 Absolute Lymphs (auto) 0.61 L Nucleated RBC % 0 PT 13.6 INR 1.1 APTT 23.5 L Sodium 137 Potassium 3.5 Chloride 100 Carbon Dioxide 26.0 Anion Gap 11 BUN 11 Creatinine 0.91 Estim Creat Clear Calc 68.81 Est GFR (MDRD) Af Amer 82 Est GFR (MDRD) Non-Af 68 BUN/Creatinine Ratio 12.1 Glucose 159 H Calcium 8.7 Magnesium Total Bilirubin Direct Bilirubin AST ALT Alkaline Phosphatase Troponin I < 0.015 Total Protein Albumin Globulin Triglycerides Cholesterol LDL Cholesterol VLDL Cholesterol HDL Cholesterol TSH Urine Opiates Screen Urine Methadone Screen Ur Barbiturates Screen Ur Phencyclidine Scrn Ur Amphetamines Screen U Methamphetamin-MDMA U Benzodiazepines Scrn Urine Cocaine Screen U Cannabinoids Screen Ur Drug Screen Comment Ethyl Alcohol 01/19/21 01/19/21 01/20/21 14:15 14:15 06:10 WBC RBC Hgb Hct MCV MCH MCHC RDW Std Deviation RDW Coeff of Arnold Plt Count MPV Immature Gran % (Auto) Neut % (Auto) Lymph % (Auto) Boundary % (Auto) Eos % (Auto) Baso % (Auto) Absolute Neuts (auto) Absolute Lymphs (auto) Nucleated RBC % PT INR APTT Sodium Potassium Chloride Carbon Dioxide Anion Gap BUN Creatinine Estim Creat Clear Calc Est GFR (MDRD) Af Amer Est GFR (MDRD) Non-Af BUN/Creatinine Ratio Glucose Calcium Magnesium Total Bilirubin Direct Bilirubin AST ALT Alkaline Phosphatase Troponin I Cancelled Total Protein Albumin Globulin Triglycerides Cholesterol LDL Cholesterol VLDL Cholesterol HDL Cholesterol TSH 0.75 Urine Opiates Screen NEGATIVE Urine Methadone Screen NEGATIVE Ur Barbiturates Screen NEGATIVE Ur Phencyclidine Scrn NEGATIVE Ur Amphetamines Screen NEGATIVE U Methamphetamin-MDMA NEGATIVE U Benzodiazepines Scrn NEGATIVE Urine Cocaine Screen NEGATIVE U Cannabinoids Screen NEGATIVE Ur Drug Screen Comment Ethyl Alcohol < 3.0 01/20/21 01/20/21 06:36 06:36 WBC 5.1 RBC 4.07 L Hgb 12.6 Hct 38.5 MCV 94.6 MCH 31.0 MCHC 32.7 RDW Std Deviation 53.9 H RDW Coeff of Arnold 15.6 H Plt Count 118 L MPV 10.5 Immature Gran % (Auto) 0.200 Neut % (Auto) 51.8 Lymph % (Auto) 37.4 Boundary % (Auto) 8.6 Eos % (Auto) 1.4 Baso % (Auto) 0.6 Absolute Neuts (auto) 2.7 Absolute Lymphs (auto) 1.92 Nucleated RBC % 0 PT INR APTT Sodium 139 Potassium 2.6 L* Chloride 102 Carbon Dioxide 29.0 Anion Gap 8 BUN 9 Creatinine 0.77 Estim Creat Clear Calc 81.32 Est GFR (MDRD) Af Amer 99 Est GFR (MDRD) Non-Af 82 BUN/Creatinine Ratio 11.7 Glucose 89 Calcium 8.6 Magnesium 1.3 L Total Bilirubin 1.60 H Direct Bilirubin 0.46 H AST 62 H ALT 31 Alkaline Phosphatase 138 H Troponin I Total Protein 7.0 Albumin 3.3 Globulin 3.7 Triglycerides 119 Cholesterol 260 H LDL Cholesterol 105 VLDL Cholesterol 24 HDL Cholesterol 131 TSH Urine Opiates Screen Urine Methadone Screen Ur Barbiturates Screen Ur Phencyclidine Scrn Ur Amphetamines Screen U Methamphetamin-MDMA U Benzodiazepines Scrn Urine Cocaine Screen U Cannabinoids Screen Ur Drug Screen Comment Ethyl Alcohol Radiography Diagnostic Testing: Radiology Impression Brain CT 01/19/21 13:57 IMPRESSION: 1. No CT evidence of intracranial bleeding, acute ischemic infarct or acute intracranial abnormality. 2. Total ASPECTS score: 10/10. 3. No interval change when compared to 06/05/2020. Electronically Signed: Cj Recio MD at 14:08 EDT , Service support , ADDENDUM: 01/19/21 1415 IMPRESSION: 1. No CT evidence of intracranial bleeding, acute ischemic infarct or acute intracranial abnormality. 2. Total ASPECTS score: 10/10. 3. No interval change when compared to 06/05/2020. N.B. : The above Results were Read Back by Cj Recio MD to Timmy Avalos MD, and understanding confirmed on 01/19/2021 14:09:01 (ET). Electronically Signed: Cj Recio MD at 14:08 EDT , Service support , Head/Neck CTA 01/19/21 13:57 IMPRESSION: Normal CTA Head and neck with contrast. Electronically Signed: Cj Recio MD at 14:29 EDT , Service support , ADDENDUM: 01/19/21 1439 IMPRESSION: Normal CTA Head and neck with contrast. N.B. : The above Results were Read Back by Cj Recio MD to Michela Avalos MD, and understanding confirmed on 01/19/2021 14:32:16 (ET). Electronically Signed: Cj Recio MD at 14:29 EDT , Service support , Physical Exam Narrative GENERAL: cooperative HEENT: Atraumatic; EYES; Anicteric, Normal Conjunctiva NECK; supple, normal thyroid, RESPIRATORY: Diminished to auscultation CARDIOVASCULAR: Regular S1 S2, GI: soft, normoactive bowel sounds, : No Renal angle tenderness; EXTREMITIES: No edema, no clubbing, MUSCULOSKELETAL: no muscle waisting NEURO: Awake; no lateralizing signs. SKIN: No Rash PSYCH; Flat affect Assessment & Plan Assessment/Plan (1) TGA (transient global amnesia): PLAN: Patient is a 55-year-old lady admitted with sudden onset of confusion 1. Suspected transient global amnesia ?Patient has been admitted to monitored bed undergoing subsequent evaluation with every 4 neurochecks as well as MRI of the brain. CTA of the head obtained was unremarkable. As part of a management patient was started on statin therapy and aspirin and 2D echo ordered. Patient is also on a bunch of psychotropic medications including gabapentin tramadol hydroxyzine this could also explain for her confusion -01/20/2021; scheduled to undergo MRI placement 2. GERD ?On PPI 3. Generalized osteoarthritis ?Patient was on gabapentin and tramadol held 4. Obesity with BMI of 33.2 ?Weight loss advised 5. Depression ?Patient is on Prozac 6. DVT prophylaxis - On enoxaparin 7. Hypokalemia ?Corrected per protocol 8. PSVT ?Patient currently on telemetry monitoring Charges/Coding Visit Charges OBSV E&M: 02071 Subsequent observation care L3
[2021-01-20] MEDS: Pantoprazole Sodium 20 MG Tablet PO (10:29)
[2021-01-20] MEDS: Aspirin 81 MG TAB.CHEW PO (10:29)
[2021-01-20] MEDS: cloNIDine HCl 0.2 MG Tablet PO (10:29)
[2021-01-20] MEDS: Enoxaparin 40 MG/0.4 ML Syringe SC (10:29)
[2021-01-20] MEDS: LORazepam 2 MG/ML Syringe 1 MG IV (11:05)
[2021-01-20] MEDS: Potassium Chloride Oral Tablet 20 MEQ PO ×2 (13:12→16:40)
[2021-01-20] MEDS: Magnesium Chloride 64 MG Delay Rel.Tablet 128 MG PO ×2 (13:13→19:48)
[2021-01-20] MEDS: Potassium Chloride 10mEq/100mL 10 MEQ/100 ML IV.SOLN. 100 MEQ IV BOLUS ×4 (13:35→16:39)
[2021-01-20] MEDS: Magnesium Sulfate 4gm/100mL 4 GM/100 ML IV.SOLN. IV (13:37)
[2021-01-20] MEDS: Atorvastatin Calcium 40 MG Tablet PO (19:48)
[2021-01-21 02:58] VITALS: PULSE 77
[2021-01-21 03:10] VITALS: BP 139/83; PULSE 87; RESP 16; TEMP 36.5; O2SAT 99
[2021-01-21 05:55] LABS: Anion Gap 6 (5-15); BUN 11 mg/dL (7-18); BUN/Creat Ratio 16.2 RATIO (10-20); Calcium,Total 7.7 mg/dL (8.5-10.1); Chloride 110 mmol/L (98-107); Creatinine, Serum 0.68 mg/dL (0.55-1.02); EST Glomerular Filtration Rate 95 mL/min (>60); Est Glom Filt Rate - Afr Amer 115 mL/min (>60); Estimated Creatinine Clearance 92.08 ml/min; Glucose 96 mg/dL (74-106); Potassium 3.9 mmol/L (3.5-5.1); Sodium Level 143 mmol/L (136-145)
[2021-01-21 07:38] VITALS: PULSE 75
[2021-01-21 10:08] VITALS: BP 128/72; PULSE 79; RESP 12; TEMP 37.1; O2SAT 97
[2021-01-21] MEDS: Enoxaparin 40 MG/0.4 ML Syringe SC (10:14)
[2021-01-21] MEDS: cloNIDine HCl 0.2 MG Tablet PO (10:14)
[2021-01-21] MEDS: Magnesium Chloride 64 MG Delay Rel.Tablet 128 MG PO (10:14)
[2021-01-21] MEDS: Aspirin 81 MG TAB.CHEW PO (10:14)
[2021-01-21] MEDS: Pantoprazole Sodium 20 MG Tablet PO (10:14)
[2021-01-21] MEDS: Potassium Chloride Oral Tablet 20 MEQ PO (10:14)
[2021-01-21] MEDS: 0.9% Normal Saline 1,000 ML 75 ML IV (10:15)
--- NOTE | 2021-01-21 10:48 | CASEMGMT ---
SW did not complete a PHQ 9 as per physician patient did not have a Stroke or TIA. Bonita BATES
--- NOTE | 2021-01-21 10:56 | CASEMGMT ---
This RN CM to room with CROWLEY form, explanation done-pt voices understanding, and signs CROWLEY form. Pt has IP vs OBS booklet at bedside. Original to chart and copy to pt. Pt awaiting results for discharge. Pt's at bedside. SStaten RN CM
--- NOTE | 2021-01-21 11:00 | PCM.DC ---
Discharge Instructions Diet Discharge Diet: No restrictions Activity Discharge Activity: Return to Normal Activity Dressing / Incision Call your doctor if you observe: Shortness of breath, Dizziness and Chest pain Follow Up Care Test Results: Test results from this visit will be discussed in further detail at your follow-up appointment, if applicable. Discharge Plan Admission Admit Date/Time: 01/19/21 14:57 Primary Reason for Your Visit: Confusion Attending Provider: Genet Ramon Primary Care Provider: Klaudia Ashley Discharge Orders/Prescriptions Prescriptions: New potassium chloride [Klor-Con M20] 20 mEq Tablet,Er Particles/Crystals 20 meq PO DAILY Qty: 30 RF: 0 atorvastatin 10 mg tablet 10 mg PO QHS Qty: 30 RF: 0 Continued clonidine HCl 0.2 MG tablet 0.2 mg PO DAILY RF: 0 pantoprazole 20 MG tablet 20 mg PO DAILY RF: 0 tramadol 50 mg Tablet 50 mg PO Q8H PRN (Reason: Pain (Scale Score 1-3)) RF: 0 fluoxetine 10 mg Capsule 10 mg PO PRN PRN (Reason: depression) RF: 0 gabapentin 100 mg Capsule 100 mg PO TID RF: 0 Referrals / Follow Up: Klaudia Ashley DO [Primary Care Provider] - In 1 Week Disposition Disposition (needs filled in before D/C Order can be placed): Home, self care
--- NOTE | 2021-01-21 11:13 | DS.PCM_ITS ---
Documented by User: Janny Tejeda NP, [employer]-C 01/21/21 11:36 Providers Date of Admission: 01/19/21 Date of Discharge: 01/21/21 Primary Care Physician: Dr. Klaudia Ashley DO Reason For Visit: TRANSIENT GLOBAL AMNESIA Diagnosis Discharge Diagnosis (1) TGA (transient global amnesia): Status: Acute Code(s): G45.4 - Transient global amnesia Medications at Discharge Home Medications clonidine HCl 0.2 mg PO DAILY 09/04/14 pantoprazole 20 mg PO DAILY 03/23/17 fluoxetine 10 mg PO PRN PRN 01/19/21 gabapentin 100 mg PO TID 01/19/21 tramadol 50 mg PO Q8H PRN 01/19/21 atorvastatin 10 mg PO QHS #30 tab 01/21/21 potassium chloride [Klor-Con M20] 20 meq PO DAILY #30 tab 01/21/21 Hospital Course Operations None Procedures 2-D Echocardiogram Summary of Care Provided Minutes Spent on Discharge: 35 Hospital Course: Patient is a 55-year-old female admitted 01/19/2021 due to sudden onset confusion. 1. Suspected transient global amnesia-CVA/TIA ruled out. No evidence of seizure activity or syncope. Confusion was noted to be transient and patient did not have further confusion during admission. MRI without acute infarct. Very mild chronic small vessel ischemic gliosis. CTA of head and neck unremarkable. Follow-up with PCP in 1 week. 2. Hypokalemia-replaced per protocol. Potassium supplement ordered at discharge. Recommend repeat BMP in 1 week by PCP. 3. PSVT/PVCs- Echo completed, report pending and will be reviewed prior to DC. PSVT single episode. If patient has recurrent episodes/symptomatic, consider addition of beta edinson. 4. Hyperlipidemia-initiated on low-dose statin. 5. Generalized osteoarthritis-on gabapentin, tramadol. 6. Obesity-diet and lifestyle modifications encouraged. 7. Depression-on Prozac. Patient seen and examined prior to discharge. Physical assessment as noted below. Patient is stable for discharge with follow up recommendations as noted above. This patient was seen by Janny Tejeda NP-C under the supervision of Dr. Ramon. Physical Exam Const alert, oriented x3 and no apparent distress Orientation / Consciousness: awake, oriented to person, oriented to place and oriented to time HEENT normocephalic and moist oral mucous membranes Eyes PERRL, EOMs intact bilaterally and conjunctivae normal Neck no lymphadenopathy Resp normal respiratory effort and clear to auscultation bilaterally Cardio regular rate, regular rhythm and no murmurs Peripheral Pulses: pulses 2+ throughout GI normal to inspection, nondistended, normoactive bowel sounds, non-tender and non-distended Extremity normal to inspection Skin no rashes or lesions noted Lesions: no lesions Rashes: no rashes Trauma: no lacerations or abrasions Neuro CN's II-XII intact bilaterally, no focal motor deficits, no sensory deficits noted and deep tendon reflexes 2+ bilaterally Psych mental status grossly normal and affect normal Weight / BMI Weight Weight: 212 lb 4.882 oz Body Mass Index (BMI) 32.3 ABG / Lab / Microbiology Data Result Diagrams: 01/20/21 06:36 01/21/21 05:30 Laboratory: Laboratory Results - last 24 hr 01/21/21 05:30 Sodium 143 Potassium 3.9 Chloride 110 H Carbon Dioxide 27.0 Anion Gap 6 BUN 11 Creatinine 0.68 Estim Creat Clear Calc 92.08 Est GFR (MDRD) Af Amer 115 Est GFR (MDRD) Non-Af 95 BUN/Creatinine Ratio 16.2 Glucose 96 Calcium 7.7 L Radiography Diagnostic Testing: Radiology Impression Brain MRI 01/20/21 10:00 IMPRESSION: No evidence for acute infarct. Very mild chronic small vessel ischemic gliosis. Motion artifact. at 1314 Reported and signed by: Cecilia Snider MD Electronically Signed: Cecilia Snider MD at 13:13 EDT Tel , Service support , D/C Instructions Discharge Diet: No restrictions Call your doctor if you observe: Shortness of breath, Dizziness and Chest pain Meaningful Use Info Meaningful Use Diagnoses (Choose all that apply): None applicable Discharge Plan Admission Admit Date/Time: 01/19/21 14:57 Primary Reason for Your Visit: Confusion Attending Provider: Genet Ramon Primary Care Provider: Klaudia Ashley Instructions Additional Instructions / Restrictions: Patient Problems: Altered Health Status related to Hospitalization Patient Goals: *Optimal Level of Health *Keep Appointments *Medication Compliance *Remain Safe Discharge Orders/Prescriptions Prescriptions: New potassium chloride [Klor-Con M20] 20 mEq Tablet,Er Particles/Crystals 20 meq PO DAILY Qty: 30 RF: 0 atorvastatin 10 mg tablet 10 mg PO QHS Qty: 30 RF: 0 Continued clonidine HCl 0.2 MG tablet 0.2 mg PO DAILY RF: 0 pantoprazole 20 MG tablet 20 mg PO DAILY RF: 0 tramadol 50 mg Tablet 50 mg PO Q8H PRN (Reason: Pain (Scale Score 1-3)) RF: 0 fluoxetine 10 mg Capsule 10 mg PO PRN PRN (Reason: depression) RF: 0 gabapentin 100 mg Capsule 100 mg PO TID RF: 0 Referrals / Follow Up: Klaudia Ashley DO [Primary Care Provider] - In 1 Week Disposition Disposition (needs filled in before D/C Order can be placed): Home, self care Documented by User: Dr. Genet Ramon DO 01/21/21 15:26 Providers Date of Admission: 01/19/21 Reason For Visit: TRANSIENT GLOBAL AMNESIA Medications at Discharge Home Medications clonidine HCl 0.2 mg PO DAILY 09/04/14 pantoprazole 20 mg PO DAILY 03/23/17 fluoxetine 10 mg PO PRN PRN 01/19/21 gabapentin 100 mg PO TID 01/19/21 tramadol 50 mg PO Q8H PRN 01/19/21 atorvastatin 10 mg PO QHS #30 tab 01/21/21 potassium chloride [Klor-Con M20] 20 meq PO DAILY #30 tab 01/21/21 Hospital Course Operations None Procedures 2-D Echocardiogram Summary of Care Provided Minutes Spent on Discharge: 22 Hospital Course: Mrs. Goff is a 55-year-old white female who presented to the emergency department [facility] on 01/19/2021 with acute onset confusion. Upon admission the patient did not recall the events leading to her presentation the emergency department. Her reported she became confused suddenly on the afternoon of her presentation. She had no episodes of seizure activity had no syncopal episode and was otherwise unremarkable. A stroke alert was called and per evaluation by the stroke physician transient global amnesia was suggested but stroke work-up was recommended. She was admitted to complete a stroke work-up. An MRI was performed and showed no evidence of acute infarct and mild chronic small vessel changes. An echocardiogram was performed and showed an EF of 60% with stage I diastolic dysfunction and no regional wall motion abnormalities. A bubble contrast that he was negative for shunt. Patient had hypokalemia (2.6) on presentation and this was replaced per protocol. The patient states she felt much better. She is to follow-up with her PCP in 1 week and I would recommend a repeat BMP to reassess her potassium. She was discharged in stable condition and was back to baseline. Physical Exam Const alert, oriented x3, no apparent distress, average body habitus and no limitatio ns Constitutional Narrative: Overweight middle-aged white female, lying in bed currently getting echo, appears comfortable General Appearance: cooperative, comfortable, well kempt and well developed Orientation / Consciousness: awake, oriented to person, oriented to place and oriented to time Exam Limitations: no limitations HEENT normocephalic and head/scalp atraumatic Eyes PERRL and EOMs intact bilaterally Neck supple Neck Narrative: Trachea midline Resp normal respiratory effort, no retractions, no use of accessory muscles and clear to auscultation bilaterally Cardio regular rate, regular rhythm, S1 normal heart sound, S2 normal heart sound, no murmurs, no rub, no gallops, no clicks and no JVD GI normal to inspection, nondistended, normoactive bowel sounds, soft to palpation, non-tender and non-distended Extremity normal to inspection, full ROM and no clubbing, cyanosis or edema Skin no rashes or lesions noted and no wounds Neuro oriented x3, CN's II-XII intact bilaterally, moves all extremities and no focal motor deficits Sensorium / Orientation: awake, alert, oriented to person, oriented to place and oriented to time Speech: speech normal Psych affect normal ABG / Lab / Microbiology Data Result Diagrams: 01/20/21 06:36 01/21/21 05:30 Discharge Plan Admission Admit Date/Time: 01/19/21 14:57 Primary Reason for Your Visit: Confusion Attending Provider: Genet Ramon Primary Care Provider: Klaudia Ashley Instructions Additional Instructions / Restrictions: Patient Problems: Altered Health Status related to Hospitalization Patient Goals: *Optimal Level of Health *Keep Appointments *Medication Compliance *Remain Safe Discharge Orders/Prescriptions Prescriptions: New potassium chloride [Klor-Con M20] 20 mEq Tablet,Er Particles/Crystals 20 meq PO DAILY Qty: 30 RF: 0 atorvastatin 10 mg tablet 10 mg PO QHS Qty: 30 RF: 0 Continued clonidine HCl 0.2 MG tablet 0.2 mg PO DAILY RF: 0 pantoprazole 20 MG tablet 20 mg PO DAILY RF: 0 tramadol 50 mg Tablet 50 mg PO Q8H PRN (Reason: Pain (Scale Score 1-3)) RF: 0 fluoxetine 10 mg Capsule 10 mg PO PRN PRN (Reason: depression) RF: 0 gabapentin 100 mg Capsule 100 mg PO TID RF: 0 Referrals / Follow Up: Klaudia Ashley DO [Primary Care Provider] - In 1 Week Disposition Disposition (needs filled in before D/C Order can be placed): Home, self care Charges/Coding Visit Charges Inpatient E&M: 80757 Disch Hosp
== END 2021-01-21 11:03 | disposition home or self-care (01) ==
LOC: ED 15:14 → PCU 22:38
PROVIDERS: Hospitalist; Admitting Provider Internal Medicine; Emergency Provider Emergency Medicine; PCP Family Medicine; Visit Provider Internal Medicine
DX: G45.4 Transient global amnesia (principal); G89.29 Other chronic pain; R29.700 NIHSS score 0; I10 Essential (primary) hypertension; K21.9 Gastro-esophageal reflux disease without esophagitis; M15.9 Polyosteoarthritis, unspecified; F32.9 Major depressive disorder, single episode, unspecified; E66.9 Obesity, unspecified; E87.6 Hypokalemia; I47.1 Supraventricular tachycardia; E78.5 Hyperlipidemia, unspecified; Z68.33 Body mass index [BMI] 33.0-33.9, adult; Z98.84 Bariatric surgery status; Z79.899 Other long term (current) drug therapy
CPT/HCPCS: 36415; 70450; 70496; 70498; 70551; 71045; 80048; 80061; 80076; 80307; 82077; 83735; 84443; 84484; 85025; 85610; 85730; 93005; 93306; 94762; 96361; 96365; 96366; 96372; 96375; 96376; 97802; 99218; 99285; J7030; Q9967; A4216; G0378; J3490

== ENCOUNTER 2021-04-17 16:49 | Emergency (ER) | payer MEDICARE, SELFPAY ==
[2021-04-17 16:50] VITALS: BP 131/98; PULSE 129; PULSE 135; RESP 13; RESP 19; TEMP 37; O2SAT 100; BMI 46.5
[2021-04-17 17:00] VITALS: PULSE 129; RESP 16; TEMP 37; O2SAT 100
--- NOTE | 2021-04-17 17:00 | RAD_ITS ---
We are attempting to reach an attending provider to discuss findings. An addendum with communication details will be sent when the communication is complete. STUDY: X-RAY CHEST REASON FOR EXAM: Female, 55 years old. Trauma TECHNIQUE: Single frontal view of the chest. COMPARISON: 01/19/2021. FINDINGS: Endotracheal tube tip enters the right mainstem bronchus. Patchy opacity at the base of the left lung likely represents atelectasis. Normal size heart. Normal mediastinum and ishmael. Normal visualized pulmonary arteries. Normal visualized aortic arch and descending thoracic aorta. Normal visualized thoracic spine. Normal visualized ribs, clavicles, and shoulders. There is no demonstrated abnormality of the visualized soft tissue structures of the upper abdomen. RAD/Chest 1 View (Portable) IMPRESSION: Endotracheal tube tip enters the right mainstem bronchus. Recommend retraction by approximately 3 cm. Patchy opacity at the base of the left lung likely represents atelectasis. Electronically Signed: Juve Hayes MD at 18:17 EDT Tel , Service support ,
--- NOTE | 2021-04-17 17:02 | EKG12_ITS ---
Test Reason : TRAUMA Blood Pressure : / mmHG Vent. Rate : 123 BPM Atrial Rate : 123 BPM P-R Int : 144 ms QRS Dur : 090 ms QT Int : 324 ms P-R-T Axes : 023 -19 043 degrees QTc Int : 463 ms Sinus tachycardia Otherwise normal ECG Confirmed by CHAPO GÓMEZ, CLARICE ([id number]), slot editor SILVESTRE COLLINS ([id number]) on 04/18/2021 10:36:35 AM Referred By: VICKY Confirmed By:CLARICE COWAN MD
--- NOTE | 2021-04-17 17:03 | CT_ITS ---
ACR Level 3 findings have been noted. An addendum which confirms receipt of the report will follow. STUDY: CT CHEST, ABDOMEN T PELVIS WITHOUT CONTRAST REASON FOR EXAM: Female, 55 years old. Trauma RADIATION DOSAGE (If Supplied By Facility): CTDIvol = ( 24.41 ) mGy, DLP = ( 2285.32 ) mGycm TECHNIQUE: Transaxial imaging was performed without the administration of intravenous contrast material. Multiplanar coronal and sagittal images were reformatted. Individualized dose optimization techniques were used for this CT. COMPARISON: CT abdomen and pelvis April 05, 2020 FINDINGS: CHEST Endotracheal tube and orogastric tube are present. There is left greater than right lower lung airspace consolidation. There is no demonstrated pleural abnormality. There are calcifications of the coronary arteries. Normal mediastinum. Normal hilar regions. Normal unenhanced pulmonary arteries. There is atherosclerotic calcification of the aortic arch with tortuosity and elongation of the aortic arch and descending thoracic aorta. There are multi-level degenerative changes of the thoracic spine. There is posterior soft tissue swelling at the left shoulder. There is no demonstrated abnormality of the visualized upper abdomen. ABDOMEN There is leftward in the right lower lung airspace consolidation. The visualized portions of the heart are within normal limits. There is hepatomegaly with diffuse hepatic enlargement. Normal gallbladder and extrahepatic biliary system. Normal spleen. Normal pancreas. Normal bilateral adrenal glands. Normal right kidney. Normal left kidney. There is postoperative change of the stomach. Normal small intestine. Normal colon. The appendix is visualized and appears normal. Normal abdominal aorta. Normal inferior vena cava. Normal retroperitoneum. Normal abdominal wall. There are diffuse degenerative changes of the visualized lumbar spine. PELVIS Normal urinary bladder. There is abnormal positioning of De La Fuente catheter at the vagina. Normal visualized small intestine. Normal visualized colon. There is no pelvic fluid. There is no pelvic lymphadenopathy or mass lesion. Normal visualized uterus. Normal visualized pelvic arteries. Normal abdominal wall. Normal osseous structures. CT/CT Chest, Abd, Pelvis WO Cont IMPRESSION: No acute fracture. No solid organ injury. Bilateral lower lung infiltrates or contusions. Abnormal positioning of De La Fuente catheter. Electronically Signed: Cr López MD at 18:32 EDT , Service support ,
--- NOTE | 2021-04-17 17:03 | CT_ITS ---
STUDY: CT CERVICAL SPINE WITHOUT CONTRAST REASON FOR EXAM: Female, 55 years old. Trauma RADIATION DOSAGE (If Supplied By Facility): CTDIvol = ( 23.32 ) mGy, DLP = ( 487.75 ) mGycm TECHNIQUE: High resolution transaxial imaging was performed without contrast material. Sagittal and coronal images were reconstructed. Individualized dose optimization techniques were used for this CT. COMPARISON: None FINDINGS: Normal craniovertebral junction. Normal anterior atlantoaxial articulation. Normal odontoid process. There is a hairline fracture of the right lateral mass of C2 Normal cervical lordosis. Normal vertebral bodies and posterior osseous elements. C2-3: Normal endplates. Normal disc height and morphology. Normal central canal and intervertebral neuroforamina. C3-4: Normal endplates. Normal disc height and morphology. Normal central canal and intervertebral neuroforamina. C4-5: Minor anterior endplate spurring.. Normal disc height and morphology. Normal central canal and intervertebral neuroforamina. C5-6: Normal endplates. Normal disc height and morphology. Normal central canal and intervertebral neuroforamina. C6-7: Normal endplates. Normal disc height and morphology. Normal central canal and intervertebral neuroforamina. C7-T1: Normal endplates. Normal disc height and morphology. Normal central canal and intervertebral neuroforamina. Normal visualized soft tissue structures. CT/Spine Cervical without Contras IMPRESSION: Hairline fracture of the right lateral mass of C2. No other acute fractures identified. Mild degenerative changes N.B. : The above Results were Read Back by Fabio Collins MD to Dr. luis su MD, and understanding confirmed on 04/17/2021 18:45:25 (ET). Electronically Signed: Fabio Collins MD at 18:51 EDT , Service support ,
--- NOTE | 2021-04-17 17:03 | CT_ITS ---
STUDY: CT BRAIN WITHOUT CONTRAST REASON FOR EXAM: Female, 55 years old. Trauma RADIATION DOSAGE (If Supplied By Facility): CTDIvol = ( 44.99 ) mGy, DLP = ( 812.98 ) mGycm TECHNIQUE: Transaxial CT imaging of the brain was performed without administration of intravenous contrast material. Individualized dose optimization techniques were used for this CT. COMPARISON: January 19, 2021 FINDINGS: There is soft tissue swelling and injury on the left. There is air in the subcutaneous soft tissues of the left parietal scalp. There are increased density foreign body with possible glass. There are endotracheal tube and orogastric tube. Normal calvarium. Normal size ventricles and extra-axial spaces for the patient''s age. Normal white matter tracts of the cerebral hemispheres. Normal basal ganglia and thalami. Normal brainstem. Normal cerebellum. There is no intracranial hemorrhage. There are no findings of an acute ischemic infarction. Normal visualized paranasal sinuses. CT/Brain/Head without Contrast IMPRESSION: Normal unenhanced CT scan of the brain. Soft tissue swelling and injury with foreign body. Electronically Signed: Cr López MD at 18:24 EDT , Service support ,
--- NOTE | 2021-04-17 17:03 | RAD_ITS ---
STUDY: X-RAY - PELVIS REASON FOR EXAM: Female, 55 years old. Trauma -- Pelvis 2 views TECHNIQUE: One view of the pelvis was obtained. COMPARISON: None. FINDINGS: There is a non-specific bowel gas pattern. Granular high attenuation material overlying the left hip and pelvis may represent retained foreign bodies. Normal bilateral iliac wings, sacroiliac joints and visualized sacrum. Normal visualized bilateral superior and inferior pubic rami. Normal pubic symphysis. Normal ischial tuberosities. Normal visualized right femoral head. Normal right acetabulum. Normal right hip joint. Normal visualized left femoral head. Normal left acetabulum. Normal left hip joint. RAD/Pelvis 1 or 2 Views IMPRESSION: Intact osseous structures. Granular high attenuation material overlying the left hip and pelvis may represent retained foreign bodies. Electronically Signed: Juve Hayes MD at 18:01 EDT Tel , Service support ,
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
--- NOTE | 2021-04-17 17:08 | NURSING ---
CALLED [facility] FOR TRANSFER.
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
[2021-04-17 17:18] LABS: Absolute Lymphocyte Count 3.37 X10^3/uL (0.83-4.51); Absolute Neutrophil Count 2.3 X10^3/uL (2.0-7.7); Basophil% 1.6 % (0-1); Eosinophil# 0.09 X10^3/uL; Eosinophils% 1.4 % (0-5); Hematocrit 34.7 % (37-47); Hemoglobin 10.9 g/dL (12.0-15.0); Lymphocyte # 3.37 X10^3/ul (0.83-4.51); Lymphocyte % 53.4 % (19-41); Mean Corp Hgb Conc 31.4 g/dL (32-36); Mean Corpuscular Volume 105.2 fL (81-99); Mean Platelet Vol. 9.3 fl (6.2-12.0); Monocyte# 0.42 X10^3/uL; Monocyte% 6.7 % (0-10); NRBC Flagged by Analyzer 0.6 % (0-5); Neutrophil # 2.27 X10^3/uL (2.7-7.7); Neutrophil % 35.9 % (47-70); POSITIVE MORPHOLOGY YES; Platelet Count 251 K/mm3 (150-450); RBC Distribution Width SD 77.7 fl (35.1-43.9); White Blood Count 6.3 K/mm3 (4.4-11.0)
[2021-04-17 17:20] LABS: Differential Indicated SCAN CRITERIA MET; International Normalized Ratio 0.9
[2021-04-17] MEDS: Etomidate 20 MG/10 ML Vial IV (17:21)
[2021-04-17] MEDS: Rocuronium Bromide 50 MG/5 ML Vial 100 MG IV (17:21)
[2021-04-17 17:28] LABS: AST(SGOT) 101 U/L (15-37); Alanine Aminotransfer ALT/SGPT 47 U/L (13-56); Albumin, Serum 2.9 g/dL (3.2-5.0); Alkaline Phosphatase 144 U/L (45-117); Anion Gap 7 (5-15); BUN 8 mg/dL (7-18); BUN/Creat Ratio 10.7 RATIO (10-20); Bilirubin, Direct 0.12 mg/dL (0.00-0.30); Chloride 111 mmol/L (98-107); Creatinine, Serum 0.74 mg/dL (0.55-1.02); EST Glomerular Filtration Rate 85 mL/min (>60); Est Glom Filt Rate - Afr Amer 103 mL/min (>60); Estimated Creatinine Clearance 84.61 ml/min; Globulin 3.8 g/dL (2.2-4.2); Glucose 112 mg/dL (74-106); Potassium 3.5 mmol/L (3.5-5.1); Protein, Total 6.7 g/dL (6.4-8.2); Sodium Level 147 mmol/L (136-145)
--- NOTE | 2021-04-17 17:31 | NURSING ---
CALLED [facility] ETA IS 25 MIN
[2021-04-17 17:35] LABS: Base Excess -1 mmol/L (-2 to +2); Bicarbonate 24.5 mmol/L (22-26); Blood Gas Specimen Type ART; FI02 60; PEEP 5; PO2 172 mmHG (75-100); RR 16; SITE L Radial; SO2 99 % (95-99); Total Carbon Dioxide 26 mmol/L; Vt 450; pCO2 45.3 mmHg (35-45); pH 7.34 (7.35-7.45)
[2021-04-17 17:45] VITALS: BP 166/111; PULSE 121; RESP 19; O2SAT 100
[2021-04-17] MEDS: Cefazolin 1 GM/50 ML BAG IV (17:46)
[2021-04-17] MEDS: Propofol 200 MG/20 ML Vial 40 MG IV BOLUS (17:50)
[2021-04-17] MEDS: Propofol 10MG/Ml 1,000 MG/100 ML Bottle 8.3 MG CONT INF (17:52)
[2021-04-17 17:53] LABS: Differential Comment SCANNED
[2021-04-17 17:54] LABS: Anisocytosis 1+; Microcytosis 1+
[2021-04-17 18:17] VITALS: BP 155/93
[2021-04-17 18:18] VITALS: BP 133/84; PULSE 124; O2SAT 99
== END 2021-04-17 18:27 | disposition short-term general hospital (02) ==
LOC: ED 17:11
PROVIDERS: Emergency Provider Emergency Medicine; PCP Family Medicine
DX: S06.9X1A Unspecified intracranial injury with loss of consciousness of 30 minutes or less, initial encounter (principal); J96.00 Acute respiratory failure, unspecified whether with hypoxia or hypercapnia; S81.012A Laceration without foreign body, left knee, initial encounter; S01.01XA Laceration without foreign body of scalp, initial encounter; R40.2431 Glasgow coma scale score 3-8, in the field [EMT or ambulance]; I10 Essential (primary) hypertension; Z79.899 Other long term (current) drug therapy; Z87.891 Personal history of nicotine dependence; V48.0XXA Car driver injured in noncollision transport accident in nontraffic accident, initial encounter; Y93.I9 Activity, other involving external motion; Y92.410 Unspecified street and highway as the place of occurrence of the external cause; Y99.8 Other external cause status
CPT/HCPCS: 31500; 36600; 70450; 71045; 71250; 72125; 72170; 74176; 80048; 80076; 82803; 85025; 85610; 85730; 87426; 93005; 94002; 96365; 96375; 99251; 99285; J7030; A4216; G0463

== ENCOUNTER 2021-05-03 10:06 | Emergency (ER) | payer MEDICARE, SELFPAY ==
[2021-05-03 10:07] VITALS: BP 176/102; PULSE 99; RESP 16; TEMP 36.3; O2SAT 99; BMI 33.4
--- NOTE | 2021-05-03 10:27 | VDLE_ITS ---
Reason For Study: Swelling Procedure LEFT This is a venous duplex using B-mode, color GSV is normal. flow and spectral Doppler. CFV is compressible, spontaneous, phasic, Exam performed portable in ED. competent, and demonstrates normal A preliminary report was called and/or faxed augmentation. to [facility]. FV is compressible, spontaneous, phasic, competent and demonstrates normal augmentation. POP V is compressible, spontaneous, phasic, competent and demonstrates normal augmentation. T/P Trunk is compressible. PTV is compressible. LT PerV is compressible. VL/Venous Duplex US, Unilateral Interpretation Summary There is no evidence of left lower extremity deep vein thrombosis. Left great s aphenous vein appears patent and compressible segmentally. Ordering Physician: Eamon Sterling Referring Physician: Klaudia Ashley Performed By: Tracee Hernandez RVT
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
== END 2021-05-03 11:32 | disposition home or self-care (01) ==
PROVIDERS: Emergency Provider Student in an Organized Health Care Education/Training Program; PCP Family Medicine
DX: S70.12XA Contusion of left thigh, initial encounter (principal); S80.212A Abrasion, left knee, initial encounter; V89.2XXA Person injured in unspecified motor-vehicle accident, traffic, initial encounter; Y92.410 Unspecified street and highway as the place of occurrence of the external cause; Z87.891 Personal history of nicotine dependence
CPT/HCPCS: 93971; 99281; 99282

== ENCOUNTER → 2022-01-22 | Outpatient (CLI) | payer MEDICARE, SELFPAY ==
[2022-01-22 12:23] LABS: Absolute Lymphocyte Count 1.13 X10^3/uL (0.83-4.51); Absolute Neutrophil Count 6.9 X10^3/uL (2.0-7.7); Basophil# 0.09 X10^3/uL; Basophil% 0.9 % (0-1); Hematocrit 30.3 % (37-47); Hemoglobin 10.8 g/dL (12.0-15.0); Lymphocyte # 1.13 X10^3/ul (0.83-4.51); Lymphocyte % 11.9 % (19-41); Mean Corp Hgb Conc 35.6 g/dL (32-36); Mean Corpuscular Hgb 39.4 pg (27.0-32.0); Mean Corpuscular Volume 110.6 fL (81-99); Mean Platelet Vol. 8.9 fl (6.2-12.0); Monocyte# 1.15 X10^3/uL; Monocyte% 12.1 % (0-10); NRBC Flagged by Analyzer 0 % (0-5); Neutrophil # 6.94 X10^3/uL (2.7-7.7); Neutrophil % 72.8 % (47-70); POSITIVE MORPHOLOGY YES; Platelet Count 231 K/mm3 (150-450); Red Blood Count 2.74 M/mm3 (4.2-5.4); White Blood Count 9.5 K/mm3 (4.4-11.0)
[2022-01-22 12:26] LABS: International Normalized Ratio 1.4; Partial Thromboplast Time 35.8 Seconds (24.1-36.2); Prothrombin Time (Protime)PT. 16.8 SECONDS (11.7-14.9)
[2022-01-22 12:27] LABS: Differential Indicated SCAN CRITERIA MET
[2022-01-22 13:07] LABS: Anisocytosis 2+; Hypochromasia 1+
[2022-01-22 13:08] LABS: Vitamin B12 1177 pg/mL (211-911)
[2022-01-22 13:22] LABS: ALB/GLOB Ratio 0.6 RATIO (0.9-2.4); AST(SGOT) 225 U/L (15-37); Alanine Aminotransfer ALT/SGPT 84 U/L (13-56); Albumin, Serum 2.2 g/dL (3.2-5.0); Alkaline Phosphatase 323 U/L (45-117); Anion Gap 10 (5-15); BUN 8 mg/dL (7-18); Calcium,Total 8.5 mg/dL (8.5-10.1); Chloride 92 mmol/L (98-107); Creatinine, Serum 0.89 mg/dL (0.55-1.02); EST Glomerular Filtration Rate 69 mL/min (>60); Est Glom Filt Rate - Afr Amer 84 mL/min (>60); Glucose 96 mg/dL (74-106); Potassium 2.7 mmol/L (3.5-5.1); Protein, Total 6.2 g/dL (6.4-8.2); Sodium Level 133 mmol/L (136-145)
== END | disposition home or self-care (01) ==
LOC: LAB 11:58
PROVIDERS: PCP Family Medicine; Visit Provider Family Medicine
DX: R17 Unspecified jaundice (principal); F10.20 Alcohol dependence, uncomplicated
CPT/HCPCS: 36415; 80053; 82607; 82746; 85025; 85610; 85730

== ENCOUNTER 2022-01-23 13:55 | Inpatient (IN) | payer MEDICARE, SELFPAY ==
[2022-01-23 13:56] VITALS: BP 129/65; PULSE 91; RESP 14; TEMP 36.4; O2SAT 100; BMI 30.4
--- NOTE | 2022-01-23 14:22 | CT_ITS ---
STUDY: CT Abdomen And Pelvis W/ Contrast Injection 01/23/2022 3:56 PM REASON FOR EXAM: Female, 56 years old. JAUNDICE PAIN abdominal pain TECHNIQUE: Transaxial images were obtained without oral contrast, and IV 100mL [id number]-300 intravenous contrast. Individualized dose optimization techniques were used for this CT. COMPARISON: None. FINDINGS: The visualized lung bases are unremarkable. The visualized portions of the heart are within normal limits. There is decreased attenuation of the liver consistent with steatosis. Enhancement of the wall of the gallbladder suggesting inflammation. Coronal images do demonstrate inflammation of the gallbladder wall. No visible gallstones. Unremarkable spleen. Unremarkable pancreas.There is hepatomegaly with diffuse hepatic enlargement. Unremarkable bilateral adrenal glands. No acute findings of the right kidney. No acute findings of the left kidney. There are multiple surgical clips around the stomach. There are also anastomotic sutures around the stomach and altered gastrointestinal anatomy. This is consistent for prior gastric surgery (this may include sleeve, Dawn, or gastric bypass and other types of gastric surgery). Unremarkable small intestine. Unremarkable colon. There is non-visualization of the appendix. There are calcifications of the abdominal aorta. This is consistent for atherosclerotic disease. There is no abdominal aortic aneurysm. Unremarkable inferior vena cava. Subcentimeter mesenteric lymph nodes. Unremarkable urinary bladder. There is an umbilical hernia containing fat. There are diffuse degenerative changes of the visualized lumbar spine. There is bilateral neural foraminal stenosis at L4-5 and L5-S1. CT/Abdomen/Pelvis W IV Cont ONLY IMPRESSION: (NOT LISTED IN ORDER OF SIGNIFICANCE) Fatty liver. Enlarged liver. There is bilateral neural foraminal stenosis at L4-5 and L5-S1. CT findings concerning for cholecystitis. Calcified gallstones are nonvisualized however Other findings as above. Electronically Signed: Adán Hayes MD at 16:00 EDT ,
--- NOTE | 2022-01-23 14:22 | CT_ITS ---
STUDY: CT BRAIN WITHOUT CONTRAST REASON FOR EXAM: Female, 56 years old. confusion TECHNIQUE: Transaxial CT imaging of the brain was performed without administration of intravenous contrast material. Individualized dose optimization techniques were used for this CT. COMPARISON: 04/17/2021 FINDINGS: Normal calvarium. Normal soft tissues. Normal size ventricles and extra-axial spaces for the patient''s age. Normal white matter tracts of the cerebral hemispheres. Normal basal ganglia and thalami. Normal brainstem. Normal cerebellum. There is no intracranial hemorrhage. There are no findings of an acute ischemic infarction. Normal visualized paranasal sinuses. ASPECTS 10 CT/Brain/Head without Contrast IMPRESSION: There are no acute intracranial findings. Electronically Signed: Adán Hayes MD at 15:42 EDT ,
[2022-01-23 14:27] LABS: Absolute Lymphocyte Count 1.03 X10^3/uL (0.83-4.51); Absolute Neutrophil Count 7.5 X10^3/uL (2.0-7.7); Basophil# 0.09 X10^3/uL; Basophil% 0.9 % (0-1); Eosinophil# 0.07 X10^3/uL; Eosinophils% 0.7 % (0-5); Hematocrit 31.4 % (37-47); Lymphocyte # 1.03 X10^3/ul (0.83-4.51); Lymphocyte % 10.5 % (19-41); Mean Corpuscular Hgb 39.9 pg (27.0-32.0); Mean Corpuscular Volume 113.8 fL (81-99); Mean Platelet Vol. 8.9 fl (6.2-12.0); Monocyte# 1.02 X10^3/uL; Monocyte% 10.4 % (0-10); NRBC Flagged by Analyzer 0 % (0-5); Neutrophil # 7.54 X10^3/uL (2.7-7.7); Neutrophil % 76.5 % (47-70); POSITIVE MORPHOLOGY YES; Platelet Count 253 K/mm3 (150-450); Red Blood Count 2.76 M/mm3 (4.2-5.4); White Blood Count 9.9 K/mm3 (4.4-11.0)
[2022-01-23 14:29] LABS: Differential Indicated SCAN CRITERIA MET
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
[2022-01-23 14:36] LABS: Mucous, Urine 0 SEEN /hpf (<or=2+)
[2022-01-23 14:40] LABS: Color, Urine Amber (Yellow); Glucose, Dipstick Normal (Normal); Ketone-Dipstick 5 mg/dl (Negative); Leukocyte Esterase-Dipstick 100 /ul (Negative); Nitrite-Dipstick Negative (Negative); Occult Blood-Urine 10 /ul (Negative); Protein-Dipstick 30 mg/dl (Negative); Specific Gravity, Urine 1.015 (1.002-1.030); Urine Clarity Sl. Cloudy (Clear); Urine Urobilinogen 12 mg/dl (Normal)
[2022-01-23 14:41] LABS: Urine Bilirubin Dipstick 6 mg/dL (Negative)
[2022-01-23 14:50] LABS: AST(SGOT) 229 U/L (15-37); Alanine Aminotransfer ALT/SGPT 89 U/L (13-56); Albumin, Serum 2.1 g/dL (3.2-5.0); Alkaline Phosphatase 313 U/L (45-117); Anion Gap 8 (5-15); BUN 7 mg/dL (7-18); BUN/Creat Ratio 8.7 RATIO (10-20); Bacteria 1+ /hpf (None Seen); Bilirubin, Direct 11.91 mg/dL (0.00-0.30); Calcium,Total 8.5 mg/dL (8.5-10.1); Chloride 93 mmol/L (98-107); EST Glomerular Filtration Rate 78 mL/min (>60); Est Glom Filt Rate - Afr Amer 94 mL/min (>60); Estimated Creatinine Clearance 77.32 ml/min; Glucose 105 mg/dL (74-106); Lipase 28 U/L (73-393); Potassium 3.5 mmol/L (3.5-5.1); Protein, Total 6.1 g/dL (6.4-8.2); Sodium Level 133 mmol/L (136-145); Squamous Epithelial Cells - UA 5-10 SEEN /hpf (5-10); Transitional Epithelial - Ur 0-5 SEEN /hpf (0-5)
[2022-01-23 14:51] LABS: Red Blood Cells-Urine 0-5 SEEN /hpf (0-5); White Blood Cells 0-5 SEEN /hpf (0-5)
[2022-01-23 14:59] LABS: Anisocytosis 1+
[2022-01-23 15:03] LABS: International Normalized Ratio 1.4; Prothrombin Time (Protime)PT. 17.2 SECONDS (11.7-14.9)
[2022-01-23 15:32] VITALS: BP 119/69; PULSE 91; RESP 16; O2SAT 99
[2022-01-23 15:49] LABS: Amphetamine Urine VISTA NEGATIVE (<1000 ng/mL); Barbiturate Urine VISTA NEGATIVE (< 200 ng/mL); Benzodiazepine Urine VISTA NEGATIVE (< 200 ng/mL); Cocaine Urine VISTA NEGATIVE (< 300 ng/mL); Ecstacy Urine VISTA NEGATIVE (< 500 ng/mL); Methadone Urine VISTA NEGATIVE (< 300 ng/mL); PCP Urine VISTA NEGATIVE (< 25 ng/mL); THC Urine VISTA NEGATIVE (< 50 ng/mL); Vista UDS pH Range 6
--- NOTE | 2022-01-23 16:04 | US_ITS ---
STUDY: ABDOMINAL ULTRASOUND - RIGHT UPPER QUADRANT REASON FOR VISIT: Female, 56 years old. ABDOMEN PAIN RUq pain TECHNIQUE: Ultrasound evaluation of the right upper quadrant was performed with real-time and static ortega-scale imaging. TECHNICAL QUALITY: Adequate. COMPARISON: ct of the same day. FINDINGS: Liver: The liver has a size in centimeters of 23. There is increased echogenicity consistent with fatty infiltration. The bile ducts are within normal limits. There is hepatic color flow. The direction of portal flow is hepatopetal. There is no demonstrated mass lesion. Gallbladder: Normal distended gallbladder. The gallbladder wall measures 9 mm. There is a negative sonographic Oro''s sign. There is pericholecystic fluid. There are no gallstones. Common Bile Duct (C.B.D.): The common bile duct measures ( in mm): 5 Pancreas: It is not visualized. There is too much overlying bowel gas. Right Kidney: Normal size of the right kidney. The right kidney measures 11.2 cm. . Normal renal cortex. There is no demonstrated renal mass or cyst. There is no right hydronephrosis. Aorta: It is not visualized. There is too much overlying bowel gas. . US/Gallbladder IMPRESSION: Fatty liver. Enlarged liver. There is pericholecystic fluid. There are no gallstones. Electronically Signed: Adán Hayes MD at 18:05 EDT ,
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
--- NOTE | 2022-01-23 16:12 | NURSING ---
PCU [facility]AH LIVER FAILURE
[2022-01-23 16:13] LABS: Acetaminophen (Tylenol) Level < 2.0 ug/mL (10.0-30.0); Salicylate < 1.7 mg/dL (2.8-20.0)
[2022-01-23 16:16] VITALS: BP 128/82; PULSE 88; RESP 16; TEMP 36.2; O2SAT 98
[2022-01-23] MEDS: Lactulose 20 GM/30 ML UDC PO ×2 (16:21→21:45)
[2022-01-23 17:26] VITALS: BP 137/73; PULSE 84; RESP 16; TEMP 36.4; O2SAT 99
[2022-01-23 17:27] VITALS: BMI 40.2
[2022-01-23 18:01] VITALS: PULSE 87
--- NOTE | 2022-01-23 18:46 | CON.PCM_ITS ---
Assessment & Plan Assessment/Plan (1) Liver failure: PLAN: I believe her AST ALT ratio and increased bilirubin that she has likely alcoholic hepatitis. She could also have some drug-induced liver injury. I recommend Solu-Medrol therapy for her as her Madrey score is 70 for alcoholic hepatitis. I also recommend Pentoxyphilline therapy for her. I am also recommending Mucomyst drip for now and acetaminophen induced liver failure. To the best of my knowledge, only four prospective studies have reported some benefits of NAC use in RADHA-TIFFANIE patients. Her INR is okay at this time which is one of the most strong indicators of how she would do. We will continue to monitor the along with giving her lactulose and Xifaxan therapy. HPI Consult Data Date of Consult: 01/23/22 HPI Narrative Reason for Consultation: liver failure HPI Narrative: NU BASURTO, is a 56 F who presented to the hospital with lethargy and jaundice. Patient has a past medical history of possible alcoholism. She has been taking Tylenol therapy due to back pain. She has a past medical history of TIA, morbid obesity status post gastric bypass..? She consumes about 30 g of alcohol per day. Her spouse noticed that he was jaundiced about 2 weeks ago.? She started feeling unwell about a week prior to admission. She did not notice some worsening abdominal pain with intermittent cramping over the last several days. She also admitted to some leg swelling without abdominal swelling. She has no previous history of cirrhosis. Her vitals were stable in the ED however., Her laboratory analysis : Her WBC count is 9.9, hemoglobin 11.0, platelet count 253, INR 1.4, sodium 133, potassium 3.5, chloride 93, bicarbonate 32, BUN is 7, creatinine 0.80, total bilirubin 16.2, WBC 11.91, AST 29, ALT 89, ALP 313, ammonia 64, albumin 2.1, lipase 28.? UA slightly cloudy, leukocyte esterase positive, nitrite negative +[address] showed chronic involuntary changes.? CT of the abdomen and pelvis showed findings concerning for acute cholecystitis, no gallstones were seen. [facility] Medical History Hyperlipidemia Hypertension TGA (transient global amnesia) Home Medications clonidine HCl 0.2 mg tablet 0.2 mg PO DAILY blood pressure 09/04/14 [History Last Taken 01/23/22] pantoprazole 20 mg tablet,delayed release 20 mg PO DAILY reflux 03/23/17 [History Last Taken 01/23/22] fluoxetine 10 mg capsule 10 mg PO PRN PRN depression 01/19/21 [History Last Taken 2 Days Ago ~01/21/22] gabapentin 100 mg capsule 100 mg PO TID nerve pain 01/19/21 [History Last Taken 01/23/22] potassium chloride 20 mEq tablet,extended release(part/cryst) (Klor-Con M) 20 meq PO TID 01/23/22 [History Last Taken 01/23/22] Allergy/AdvReac Type Severity Reaction Status Date / Time No Known Allergies Allergy Verified 01/23/22 13:59 Family History Father Hypertension Mother Hypertension Surgical History Gastric bypass status for obesity h/o back surgery h/o left TKA Social History (Updated 01/23/22 @ 17:[address] Yudi Mcmillan MD) household members: spouse housing: house Smoking Status: Former smoker alcohol intake: current substance use type: does not use ROS ROS Narrative Constitutional: Reports: Malaise, Weakness, Fatigue. Denies: Anorexia, Chills, Fever, Night Sweats, Weight Change Eyes: Denies: Blurred vision, Cataracts, Conjunctivae Inflammation, Pain, Redness, Vision Change HEENT: Denies: Difficulty Hearing, Difficulty Swallowing, Head Aches, Hearing Changes, Sinus Congestion, Sinus Drainage Cardiovascular: Denies: Chest Pain, Orthopnea, Palpitations Respiratory: Denies: Cough, Shortness of breath at rest, Sputum production Gastrointestinal: See HPI Genitourinary: Denies: Dysuria Musculoskeletal: Denies: Joint Pain, Joint stiffness, Joint swelling, Joint Tenderness Skin: Denies: Rash, Wounds Neurological: Denies: Numbness, Tingling, Focal weakness Physical Exam Narrative Physical exam: General: Alert, Oriented x3, Cooperative, very jaundiced, obese, anasarca HEENT: Atraumatic Oral: Moist Mucosa Neck: Supple Lungs: Diminished to auscultation Cardiovascular: HS I+II, regular, no murmurs Abdomen: Bowel Sounds Present, Soft, Non Tender Extremities: Bilateral leg edema +3?4 Skin: No rashes, No breakdown Neurological: Grossly intact Psych/Mental Status: Appropriate Lab / Micro Data Result Diagrams: 01/23/22 14:20 01/23/22 14:20 Labs: Laboratory Results - last 24 hr 01/23/22 14:20: WBC 9.9, RBC 2.76 L, Hgb 11.0 L, Hct 31.4 L, MCV 113.8 H, MCH 39.9 H, MCHC 35.0, RDW Std Deviation 111.0 H, RDW Coeff of Arnold 27.0 H, Plt Count 253, MPV 8.9, Immature Gran % (Auto) 1.000 H, Neut % (Auto) 76.5 H, Lymph % (A uto) 10.5 L, [place] % (Auto) 10.4 H, Eos % (Auto) 0.7, Baso % (Auto) 0.9, Absolute Neuts (auto) 7.5, Absolute Lymphs (auto) 1.03, Nucleated RBC % 0, Anisocytosis 1+ 01/23/22 14:20: PT Cancelled, INR Cancelled 01/23/22 14:20: Sodium 133 L, Potassium 3.5, Chloride 93 L, Carbon Dioxide 32.0, Anion Gap 8, BUN 7, Creatinine 0.80, Estim Creat Clear Calc 77.32, Est GFR (MDRD) Af Amer 94, Est GFR (MDRD) Non-Af 78, BUN/Creatinine Ratio 8.7 L, Glucose 105, Calcium 8.5, Total Bilirubin 16.20 H*, Direct Bilirubin 11.91 H, AST 229 H, ALT 89 H, Alkaline Phosphatase 313 H, Total Protein 6.1 L, Albumin 2.1 L, Globulin 4.0, Lipase 28 L 01/23/22 14:20: Salicylates < 1.7 L, Acetaminophen < 2.0 L, Ethyl Alcohol 5.0 01/23/22 14:20: Ammonia 94.0 H 01/23/22 14:20: Urine Opiates Screen NEGATIVE, Urine Methadone Screen NEGATIVE, Ur Barbiturates Screen NEGATIVE, Ur Phencyclidine Scrn NEGATIVE, Ur Amphetamines Screen NEGATIVE, MDMA (Ecstasy) Screen NEGATIVE, U Benzodiazepines Scrn NEGATIVE, Urine Cocaine Screen NEGATIVE, U Cannabinoids Screen NEGATIVE, Ur Drug Screen Comment 01/23/22 14:20: Urine Color Linsey, Urine Clarity Sl. Cloudy, Urine pH 5.0, Ur Specific [place] 1.015, Urine Protein 30 H, Urine Glucose (UA) Normal, Urine Ketones 5 H, Urine Occult Blood 10 H, Urine Nitrite Negative, Urine Bilirubin 6 H, Urine Urobilinogen 12 H, Ur Leukocyte Esterase 100 H, Urine RBC 0-5 SEEN, Urine WBC 0-5 SEEN, Ur Squamous Epith Cells 5-10 SEEN, Ur Transition Epith Cell 0-5 SEEN, Urine Bacteria 1+, Urine Mucus 0 SEEN 01/23/22 14:40: Magnesium 2.0 01/23/22 14:40: PT 17.2 H, INR 1.4 Radiology Impression Abdomen/Pelvis CT 01/23/22 14:22 IMPRESSION: (NOT LISTED IN ORDER OF SIGNIFICANCE) Fatty liver. Enlarged liver. There is bilateral neural foraminal stenosis at L4-5 and L5-S1. CT findings concerning for cholecystitis. Calcified gallstones are nonvisualized however Other findings as above. Electronically Signed: Adán Hayes MD at 16:00 EDT , Brain CT 01/23/22 14:22 IMPRESSION: There are no acute intracranial findings. Electronically Signed: Adán Hayes MD at 15:42 EDT , Gallbladder Ultrasound 01/23/22 16:04 IMPRESSION: Fatty liver. Enlarged liver. There is pericholecystic fluid. There are no gallstones. Electronically Signed: Adán Hayes MD at 18:05 EDT , Charges/Coding Visit Charges Inpatient E&M: 44648 Init Hosp L2
[2022-01-23] MEDS: Furosemide 40 MG/4 ML Vial IV (20:52)
[2022-01-23] MEDS: MethylPREDNISolone 125 MG/2 ML Vial 80 MG IV (21:00)
[2022-01-23] MEDS: 0.9% Normal Saline 1,000 ML 125 ML IV (21:07)
[2022-01-23] MEDS: Acetylcysteine 15,000 MG in Dextrose 5% 200 ML 252.5 MG IV (21:44)
[2022-01-23] MEDS: Pentoxifylline 400 MG Tablet PO (21:46)
[2022-01-23] MEDS: rifAXIMin 550 MG Tablet PO (21:47)
[2022-01-23] MEDS: 0.9% Saline Lock 10 ML Syringe IV (21:49)
[2022-01-23] MEDS: Famotidine 200 MG/20 ML MDV 20 MG in 0.9% Normal Saline (Pres. free 8 ML 300 MG IV (21:51)
[2022-01-23] MEDS: Ondansetron 4 MG/2 ML Vial IV (22:19)
[2022-01-23 22:22] VITALS: BP 135/73; PULSE 109; RESP 18; TEMP 36.6; O2SAT 96
[2022-01-24] VITALS (8 sets, daily range): BP systolic 111–145; BP diastolic 58–84; PULSE 82–115; RESP 15–18; TEMP 36.4–36.7; O2SAT 99–100
[2022-01-24] MEDS: MethylPREDNISolone 125 MG/2 ML Vial 80 MG IV ×5 (00:15→23:09)
[2022-01-24] MEDS: 0.9% Saline Lock 10 ML Syringe IV ×8 (00:15→23:08)
[2022-01-24] MEDS: 0.9% Normal Saline 1,000 ML 125 ML IV (03:52)
[2022-01-24 06:49] LABS: Absolute Lymphocyte Count 0.55 X10^3/uL (0.83-4.51); Absolute Neutrophil Count 7.8 X10^3/uL (2.0-7.7); Basophil# 0.03 X10^3/uL; Basophil% 0.3 % (0-1); Hematocrit 28.3 % (37-47); Hemoglobin 9.8 g/dL (12.0-15.0); Lymphocyte # 0.55 X10^3/ul (0.83-4.51); Lymphocyte % 6.2 % (19-41); Mean Corp Hgb Conc 34.6 g/dL (32-36); Mean Corpuscular Hgb 39.4 pg (27.0-32.0); Mean Corpuscular Volume 113.7 fL (81-99); Mean Platelet Vol. 8.9 fl (6.2-12.0); Monocyte# 0.36 X10^3/uL; Monocyte% 4.1 % (0-10); NRBC Flagged by Analyzer 0 % (0-5); Neutrophil # 7.81 X10^3/uL (2.7-7.7); Neutrophil % 88.5 % (47-70); POSITIVE DIFFERENTIAL YES; POSITIVE MORPHOLOGY YES; Platelet Count 248 K/mm3 (150-450); Red Blood Count 2.49 M/mm3 (4.2-5.4); White Blood Count 8.8 K/mm3 (4.4-11.0)
[2022-01-24 06:54] LABS: Differential Indicated SCAN CRITERIA MET
[2022-01-24 07:16] LABS: Anisocytosis 2+; Differential Comment SCANNED; Hypochromasia RARE; Macrocytosis 2+; Polychromasia RARE
[2022-01-24 07:17] LABS: Pathologist Review May foll
[2022-01-24 07:25] LABS: ALB/GLOB Ratio 0.5 RATIO (0.9-2.4); AST(SGOT) 190 U/L (15-37); Alanine Aminotransfer ALT/SGPT 85 U/L (13-56); Albumin, Serum 1.8 g/dL (3.2-5.0); Alkaline Phosphatase 249 U/L (45-117); Anion Gap 9 (5-15); BUN 5 mg/dL (7-18); Calcium,Total 7.8 mg/dL (8.5-10.1); Chloride 94 mmol/L (98-107); Creatinine, Serum 0.83 mg/dL (0.55-1.02); EST Glomerular Filtration Rate 75 mL/min (>60); Est Glom Filt Rate - Afr Amer 91 mL/min (>60); Estimated Creatinine Clearance 74.53 ml/min; Globulin 3.7 g/dL (2.2-4.2); Glucose 159 mg/dL (74-106); Magnesium 1.6 mg/dL (1.6-2.6); Potassium 2.7 mmol/L (3.5-5.1); Protein, Total 5.5 g/dL (6.4-8.2); Sodium Level 135 mmol/L (136-145)
[2022-01-24] MEDS: Potassium Chloride Oral Tablet 20 MEQ 40 MEQ PO ×3 (08:10→16:51)
[2022-01-24] MEDS: Furosemide 40 MG/4 ML Vial IV ×2 (08:10→16:51)
[2022-01-24] MEDS: Pentoxifylline 400 MG Tablet PO ×2 (08:11→21:14)
[2022-01-24] MEDS: Potassium Chloride Oral Tablet 20 MEQ PO (08:11)
[2022-01-24] MEDS: rifAXIMin 550 MG Tablet PO ×2 (08:11→21:14)
[2022-01-24] MEDS: Lactulose 20 GM/30 ML UDC PO (08:12)
[2022-01-24] MEDS: cloNIDine HCl 0.2 MG Tablet PO (08:27)
[2022-01-24] MEDS: Famotidine 200 MG/20 ML MDV 20 MG in 0.9% Normal Saline (Pres. free 8 ML 300 MG IV (08:35)
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
--- NOTE | 2022-01-24 10:43 | PCM.PN.HOSP ---
Subjective Subjective Follow-up on acute liver failure: Patient was seen and examined. She complains of nausea. She has been having multiple bowel movements. Objective Data Objective Data Vital Signs: Vital Signs Temp Pulse Resp BP Pulse Ox 97.8 F 89 15 145/84 H 100 01/24/22 08:24 01/24/22 08:24 01/24/22 08:24 01/24/22 08:24 01/24/22 08:24 Oxygen Delivery Method Room Air Weight: 120.3 kg Body Mass Index (BMI) 40.2 Intake & Output: Intake and Output for Last 24 Hours 01/22/22 01/23/22 01/24/22 23:59 23:59 23:59 Intake Total 335 / 335 2004.83 / 2004. Output Total 2150 / 2150 Balance 335 / -415 -144.17 / -144.17 Lab / Micro Data Result Diagrams: 01/24/22 04:30 01/24/22 04:30 Labs: Laboratory Results - last 24 hr 01/23/22 14:20: WBC 9.9, RBC 2.76 L, Hgb 11.0 L, Hct 31.4 L, MCV 113.8 H, MCH 39.9 H, MCHC 35.0, RDW Std Deviation 111.0 H, RDW Coeff of Arnold 27.0 H, Plt Count 253, MPV 8.9, Immature Gran % (Auto) 1.000 H, Neut % (Auto) 76.5 H, Lymph % (Auto) 10.5 L, [place] % (Auto) 10.4 H, Eos % (Auto) 0.7, Baso % (Auto) 0.9, Absolute Neuts (auto) 7.5, Absolute Lymphs (auto) 1.03, Nucleated RBC % 0, Anisocytosis 1+ 01/23/22 14:20: PT Cancelled, INR Cancelled 01/23/22 14:20: Sodium 133 L, Potassium 3.5, Chloride 93 L, Carbon Dioxide 32.0, Anion Gap 8, BUN 7, Creatinine 0.80, Estim Creat Clear Calc 77.32, Est GFR (MDRD) Af Amer 94, Est GFR (MDRD) Non-Af 78, BUN/Creatinine Ratio 8.7 L, Glucose 105, Calcium 8.5, Total Bilirubin 16.20 H*, Direct Bilirubin 11.91 H, AST 229 H, ALT 89 H, Alkaline Phosphatase 313 H, Total Protein 6.1 L, Albumin 2.1 L, Globulin 4.0, Lipase 28 L 01/23/22 14:20: Salicylates < 1.7 L, Acetaminophen < 2.0 L, Ethyl Alcohol 5.0 01/23/22 14:20: Ammonia 94.0 H 01/23/22 14:20: Urine Opiates Screen NEGATIVE, Urine Methadone Screen NEGATIVE, Ur Barbiturates Screen NEGATIVE, Ur Phencyclidine Scrn NEGATIVE, Ur Amphetamines Screen NEGATIVE, MDMA (Ecstasy) Screen NEGATIVE, U Benzodiazepines Scrn NEGATIVE, Urine Cocaine Screen NEGATIVE, U Cannabinoids Screen NEGATIVE, Ur Drug Screen Comment 01/23/22 14:20: Urine Color Linsey, Urine Clarity Sl. Cloudy, Urine pH 5.0, Ur Specific [place] 1.015, Urine Protein 30 H, Urine Glucose (UA) Normal, Urine Ketones 5 H, Urine Occult Blood 10 H, Urine Nitrite Negative, Urine Bilirubin 6 H, Urine Urobilinogen 12 H, Ur Leukocyte Esterase 100 H, Urine RBC 0-5 SEEN, Urine WBC 0-5 SEEN, Ur Squamous Epith Cells 5-10 SEEN, Ur Transition Epith Cell 0-5 SEEN, Urine Bacteria 1+, Urine Mucus 0 SEEN 01/23/22 14:40: Magnesium 2.0 01/23/22 14:40: PT 17.2 H, INR 1.4 01/24/22 04:30: WBC 8.8, RBC 2.49 L, Hgb 9.8 L, Hct 28.3 L, MCV 113.7 H, MCH 39.4 H, MCHC 34.6, RDW Std Deviation TNP, RDW Coeff of Arnold TNP, Plt Count 248, MPV 8.9, Immature Gran % (Auto) 0.900, Neut % (Auto) 88.5 H, Lymph % (Auto) 6.2 L, [place] % (Auto) 4.1, Eos % (Auto) 0.0, Baso % (Auto) 0.3, Absolute Neuts (auto) 7.8 H, Absolute Lymphs (auto) 0.55 L, Nucleated RBC % 0, Differential Comment SCANNED, Diff Path Review May foll, Polychromasia RARE, Hypochromasia RARE, Anisocytosis 2+, Macrocytosis 2+ 01/24/22 04:30: Sodium 135 L, Potassium 2.7 L*, Chloride 94 L, Carbon Dioxide 32.0, Anion Gap 9, BUN 5 L, Creatinine 0.83, Estim Creat Clear Calc 74.53, Est GFR (MDRD) Af Amer 91, Est GFR (MDRD) Non-Af 75, BUN/Creatinine Ratio 6.0 L, Glucose 159 H, Calcium 7.8 L, Magnesium 1.6, Total Bilirubin 15.10 H*, AST 190 H, ALT 85 H, Alkaline Phosphatase 249 H, Total Protein 5.5 L, Albumin 1.8 L, Globulin 3.7, Albumin/Globulin Ratio 0.5 L 01/24/22 04:30: Ammonia 32.0 Radiography Diagnostic Testing: Radiology Impression Abdomen/Pelvis CT 01/23/22 14:22 IMPRESSION: (NOT LISTED IN ORDER OF SIGNIFICANCE) Fatty liver. Enlarged liver. There is bilateral neural foraminal stenosis at L4-5 and L5-S1. CT findings concerning for cholecystitis. Calcified gallstones are nonvisualized however Other findings as above. Electronically Signed: Adán Hayes MD at 16:00 EDT , Brain CT 01/23/22 14:22 IMPRESSION: There are no acute intracranial findings. Electronically Signed: Adán Hayes MD at 15:42 EDT , Gallbladder Ultrasound 01/23/22 16:04 IMPRESSION: Fatty liver. Enlarged liver. There is pericholecystic fluid. There are no gallstones. Electronically Signed: Adán Hayes MD at 18:05 EDT , Physical Exam Narrative Physical exam: General: Alert, Oriented x3, Cooperative, very jaundiced, obese, anasarca HEENT: Atraumatic Oral: Moist Mucosa Neck: Supple Lungs: Diminished to auscultation Cardiovascular: HS I+II, regular, no murmurs Abdomen: Bowel Sounds Present, Soft, Non Tender Extremities: Bilateral leg edema +3?4 Skin: No rashes, No breakdown Neurological: Grossly intact Psych/Mental Status: Appropriate Assessment & Plan Assessment/Plan (1) Liver failure: PLAN: Plan 1. Acute liver failure likely secondary to alcoholic hepatitis Patient's liver enzymes remains about the same -total bilirubin is 15.1 from 16.2, minimal improvement in AST ALT and ALP Patient's CT abd/pelvis shows hepatomegaly, gallbladder sludge without cholecystitis, no stone seen Salicylate level was 1.7, Tylenol level was less than 2. Hepatitis profile is unremarkable Other ultrasound shows fatty liver, enlarged liver, pericholecystic fluid, no gallstones Ammonia level is 32 today from 94 Continue lactulose, rifaximin, famotidine, Lasix, IV Solu-Medrol 80 mg every 6h, IV pentoxifylline Will DC the IV Zosyn GI following 2. Severe hypokalemia/hypomagnesemia, replace, recheck in a.m. 3. Generalized edema likely due to hypoalbuminemia #1 Continue on Lasix, will continue to monitor weights 4. Hypertension, continue on clonidine 5. Anxiety/depression, continue on fluoxetine 6. DVT PPx- SCDs Charges/Coding Visit Charges Inpatient E&M: 46700 Subs Hosp L2
--- NOTE | 2022-01-24 11:50 | CASEMGMT ---
RN CM Face to Face with patient for initial transition planning/care coordination assessment. RN CM introduced self and role at [facility]. Patient lying in bed, alert and oriented. Patient willing to participate in assessment and is able to answer all questions appropriately. Care providers, pharmacy, and demographics verified. Patient wishes to discharge home, denies need for home health at this time. Patient states she has no further needs or concerns at this time. CM to follow for discharge planning needs that may arise. PCP: Gabi Specialists: none Preferred Pharmacy: [facility] Insurance: [facility] Prescription Benefit: yes Living Will/HPOA: none LNOK: Living Arrangements: Patient lives with in a mobile home with 3 steps and railing to enter the home. Patient states she is independent at home. Transportation: self, DME/HHC: Patient states she has shower chair, cane, walker, grab bars. Patient has previously been to [facility]. No previous HHC. Disposition Plan: Patient to discharge home with family support and follow-up plans in place. Tracee RICHARDSON, RN, CM
[2022-01-24] MEDS: Ondansetron 4 MG/2 ML Vial IV (12:45)
--- NOTE | 2022-01-24 19:36 | PCM.PROGNOTE ---
Subjective Subjective She says that she feels so much better than she fell yesterday. She has been eating. She is less nauseous. Objective Data Objective Data Vital Signs: Vital Signs Temp Pulse Resp BP Pulse Ox 97.5 F L 86 15 112/70 99 01/24/22 14:09 01/24/22 15:30 01/24/22 14:09 01/24/22 14:09 01/24/22 14:09 Oxygen Delivery Method Room Air Weight: 265 lb 3.457 oz Body Mass Index (BMI) 40.2 Intake & Output: Intake and Output for Last 24 Hours 01/22/22 01/23/22 01/24/22 23:59 23:59 23:59 Intake Total 335 / 335 2055.83 / 5.83 Output Total 2150 / 2150 Balance 335 / -415 -94.17 / -94.17 Lab / Micro Data Result Diagrams: 01/24/22 04:30 01/24/22 04:30 Labs: Laboratory Results - last 24 hr 01/24/22 04:30: WBC 8.8, RBC 2.49 L, Hgb 9.8 L, Hct 28.3 L, MCV 113.7 H, MCH 39.4 H, MCHC 34.6, RDW Std Deviation TNP, RDW Coeff of Arnold TNP, Plt Count 248, MPV 8.9, Immature Gran % (Auto) 0.900, Neut % (Auto) 88.5 H, Lymph % (Auto) 6.2 L, [place] % (Auto) 4.1, Eos % (Auto) 0.0, Baso % (Auto) 0.3, Absolute Neuts (auto) 7.8 H, Absolute Lymphs (auto) 0.55 L, Nucleated RBC % 0, Differential Comment SCANNED, Diff Path Review May foll, Polychromasia RARE, Hypochromasia RARE, Anisocytosis 2+, Macrocytosis 2+ 01/24/22 04:30: Sodium 135 L, Potassium 2.7 L*, Chloride 94 L, Carbon Dioxide 32.0, Anion Gap 9, BUN 5 L, Creatinine 0.83, Estim Creat Clear Calc 74.53, Est GFR (MDRD) Af Amer 91, Est GFR (MDRD) Non-Af 75, BUN/Creatinine Ratio 6.0 L, Glucose 159 H, Calcium 7.8 L, Magnesium 1.6, Total Bilirubin 15.10 H*, AST 190 H, ALT 85 H, Alkaline Phosphatase 249 H, Total Protein 5.5 L, Albumin 1.8 L, Globulin 3.7, Albumin/Globulin Ratio 0.5 L 01/24/22 04:30: Ammonia 32.0 Physical Exam Narrative Physical exam: General: Alert, Oriented x3, Cooperative, very jaundiced, obese, anasarca HEENT: Atraumatic Oral: Moist Mucosa Neck: Supple Lungs: Diminished to auscultation Cardiovascular: HS I+II, regular, no murmurs Abdomen: Bowel Sounds Present, Soft, Non Tender Extremities: Bilateral leg edema +3?4 Skin: No rashes, No breakdown Neurological: Grossly intact Psych/Mental Status: Appropriate Assessment & Plan Assessment/Plan (1) Liver failure: PLAN: Acute liver failure secondary to alcohol and Tylenol toxicity. She is on Mucomyst drip which is scheduled to stop tomorrow. Continue other medical therapy. (2) Encephalopathy: PLAN: Encephalopathy secondary to acute liver failure. She does not have to take the lactulose as she can take Xifaxan 550 mg twice a day. Charges/Coding Visit Charges Inpatient E&M: 32708 Subs Hosp L2
[2022-01-24] MEDS: Famotidine 20 MG Tablet PO (21:14)
[2022-01-25] VITALS (8 sets, daily range): BP systolic 102–139; BP diastolic 70–82; PULSE 76–97; RESP 18; TEMP 36.4–37; O2SAT 96–98
[2022-01-25] MEDS: 0.9% Saline Lock 10 ML Syringe IV ×5 (06:03→23:22)
[2022-01-25] MEDS: MethylPREDNISolone 125 MG/2 ML Vial 80 MG IV ×4 (06:03→23:16)
[2022-01-25] MEDS: cycloBENZAPRine HCl 10 MG Tablet PO ×3 (06:25→23:22)
[2022-01-25 06:48] LABS: Absolute Lymphocyte Count 0.96 X10^3/uL (0.83-4.51); Basophil# 0.01 X10^3/uL; Basophil% 0.1 % (0-1); Hematocrit 30.5 % (37-47); Hemoglobin 10.8 g/dL (12.0-15.0); Lymphocyte # 0.96 X10^3/ul (0.83-4.51); Mean Corp Hgb Conc 35.4 g/dL (32-36); Mean Corpuscular Hgb 40.1 pg (27.0-32.0); Mean Corpuscular Volume 113.4 fL (81-99); Mean Platelet Vol. 9.3 fl (6.2-12.0); Monocyte# 0.57 X10^3/uL; Monocyte% 4.2 % (0-10); NRBC Flagged by Analyzer 0 % (0-5); Neutrophil # 12.02 X10^3/uL (2.7-7.7); Neutrophil % 87.9 % (47-70); POSITIVE MORPHOLOGY YES; Platelet Count 271 K/mm3 (150-450); RBC Distribution Width CV 27.2 % (11.6-14.6); Red Blood Count 2.69 M/mm3 (4.2-5.4); White Blood Count 13.7 K/mm3 (4.4-11.0)
[2022-01-25 06:49] LABS: Differential Indicated SCAN CRITERIA MET; RBC Distribution Width SD 108.9 fl (35.1-43.9)
[2022-01-25 07:05] LABS: Anisocytosis 2+; Differential Comment SCANNED; Hypochromasia RARE; Macrocytosis 2+
[2022-01-25 07:26] LABS: ALB/GLOB Ratio 0.5 RATIO (0.9-2.4); AST(SGOT) 208 U/L (15-37); Alanine Aminotransfer ALT/SGPT 94 U/L (13-56); Alkaline Phosphatase 274 U/L (45-117); Anion Gap 9 (5-15); BUN 6 mg/dL (7-18); BUN/Creat Ratio 6.6 RATIO (10-20); Calcium,Total 8.1 mg/dL (8.5-10.1); Chloride 91 mmol/L (98-107); EST Glomerular Filtration Rate 68 mL/min (>60); Est Glom Filt Rate - Afr Amer 82 mL/min (>60); Estimated Creatinine Clearance 68.73 ml/min; Globulin 3.9 g/dL (2.2-4.2); Glucose 117 mg/dL (74-106); Protein, Total 5.9 g/dL (6.4-8.2); Sodium Level 134 mmol/L (136-145)
--- NOTE | 2022-01-25 07:47 | PN.HOSP_ITS ---
Subjective Subjective Follow-up on acute liver failure/hepatic encephalopathy: Patient was seen and examined.? Feels slightly improved. Has had about 3 or 4 bowel movements. Denies any abdominal discomfort. Objective Data Objective Data Vital Signs: Vital Signs Temp Pulse Resp BP Pulse Ox 97.5 F L 76 18 134/81 H 96 01/25/22 07:45 01/25/22 07:45 01/25/22 07:45 01/25/22 07:45 01/25/22 07:45 Oxygen Delivery Method Room Air Weight: 117.934 kg Body Mass Index (BMI) 40.2 Intake & Output: Intake and Output for Last 24 Hours 01/23/22 01/24/22 01/25/22 23:59 23:59 23:59 Intake Total 335 / 335 3105.83 / 3345.83 360 / 360 Output Total 2150 / 2150 100 / 100 Balance 335 / -415 955.83 / 1195.83 260 / 260 Lab / Micro Data Result Diagrams: 01/25/22 06:38 01/25/22 06:38 Labs: Laboratory Results - last 24 hr 01/25/22 06:38: WBC 13.7 H, RBC 2.69 L, Hgb 10.8 L, Hct 30.5 L, MCV 113.4 H, MCH 40.1 H, MCHC 35.4, RDW Std Deviation 108.9 H, RDW Coeff of Arnold 27.2 H, Plt Count 271, MPV 9.3, Immature Gran % (Auto) 0.800, Neut % (Auto) 87.9 H, Lymph % (Auto) 7.0 L, [place] % (Auto) 4.2, Eos % (Auto) 0.0, Baso % (Auto) 0.1, Absolute Neuts (auto) 12.0 H, Absolute Lymphs (auto) 0.96, Nucleated RBC % 0, Differential Comment SCANNED, Hypochromasia RARE, Anisocytosis 2+, Macrocytosis 2+ 01/25/22 06:38: Sodium 134 L, Potassium 3.0 L, Chloride 91 L, Carbon Dioxide 34.0 H, Anion Gap 9, BUN 6 L, Creatinine 0.90, Estim Creat Clear Calc 68.73, Est GFR (MDRD) Af Amer 82, Est GFR (MDRD) Non-Af 68, BUN/Creatinine Ratio 6.6 L, Glucose 117 H, Calcium 8.1 L, Total Bilirubin 15.50 H*, AST 208 H, ALT 94 H, Alkaline Phosphatase 274 H, Total Protein 5.9 L, Albumin 2.0 L, Globulin 3.9, Albumin/Globulin Ratio 0.5 L 01/25/22 06:38: Ammonia 43.0 H Physical Exam Narrative Physical exam: General: Alert, Oriented x3, Cooperative, very jaundiced, obese, anasarca HEENT: Atraumatic Oral: Moist Mucosa Neck: Supple Lungs: Diminished to auscultation Cardiovascular: HS I+II, regular, no murmurs Abdomen: Bowel Sounds Present, Soft, Non Tender Extremities: Bilateral leg edema +2 Skin: No rashes, No breakdown Neurological: Grossly intact Psych/Mental Status: Appropriate Assessment & Plan Assessment/Plan (1) Liver failure: PLAN: Plan 1. Acute liver failure likely secondary to alcoholic hepatitis vs drug-induced injury from chronic Tylenol use Patient's liver enzymes remains about the same -total bilirubin is 15.5, minimal improvement in AST ALT and ALP Patient's CT abd/pelvis shows hepatomegaly, gallbladder sludge without cholecystitis, no stone seen Salicylate level was 1.7, Tylenol level was less than 2. Hepatitis profile is unremarkable Other ultrasound shows fatty liver, enlarged liver, pericholecystic fluid, no gallstones Ammonia level is 43 Continue lactulose, rifaximin, famotidine, Lasix, IV Solu-Medrol 80 mg every 6h, IV pentoxifylline GI following 2. Severe hypokalemia, replaced, recheck in a.m. 3. Acute hepatic encephalopathy secondary to #1 Patient's admitting ammonia was 94; ammonia today is 43 Continue on rifaximin and lactulose 4. Generalized edema likely due to hypoalbuminemia #1 Continue on Lasix, will continue to monitor weights 5. Hypertension, continue on clonidine 6. Anxiety/depression, continue on fluoxetine 7. DVT PPx- SCDs Charges/Coding Visit Charges Inpatient E&M: 79677 Subs Hosp L2
[2022-01-25] MEDS: Furosemide 40 MG/4 ML Vial IV ×2 (08:38→17:03)
[2022-01-25] MEDS: Famotidine 20 MG Tablet PO ×2 (08:39→21:31)
[2022-01-25] MEDS: cloNIDine HCl 0.2 MG Tablet PO (08:39)
[2022-01-25] MEDS: Potassium Chloride Oral Tablet 20 MEQ 40 MEQ PO (08:39)
[2022-01-25] MEDS: rifAXIMin 550 MG Tablet PO ×2 (08:39→21:31)
[2022-01-25] MEDS: Pentoxifylline 400 MG Tablet PO ×2 (08:39→21:31)
--- NOTE | 2022-01-25 09:23 | PN_ITS ---
Subjective Subjective No acute events overnight. Her epigastric pain is a lot better. She is tolerating a liquid diet. Objective Data Objective Data Vital Signs: Vital Signs Temp Pulse Resp BP Pulse Ox 97.5 F L 76 18 134/81 H 96 01/25/22 07:45 01/25/22 07:45 01/25/22 07:45 01/25/22 07:45 01/25/22 07:45 Oxygen Delivery Method Room Air Weight: 260 lb Body Mass Index (BMI) 40.2 Intake & Output: Intake and Output for Last 24 Hours 01/23/22 01/24/22 01/25/22 23:59 23:59 23:59 Intake Total 335 / 335 3105.83 / 3345.83 360 / 360 Output Total 2150 / 2150 100 / 100 Balance 335 / -415 955.83 / 1195.83 260 / 260 Lab / Micro Data Result Diagrams: 01/25/22 06:38 01/25/22 06:38 Labs: Laboratory Results - last 24 hr 01/25/22 06:38: WBC 13.7 H, RBC 2.69 L, Hgb 10.8 L, Hct 30.5 L, MCV 113.4 H, MCH 40.1 H, MCHC 35.4, RDW Std Deviation 108.9 H, RDW Coeff of Arnold 27.2 H, Plt Count 271, MPV 9.3, Immature Gran % (Auto) 0.800, Neut % (Auto) 87.9 H, Lymph % (Auto) 7.0 L, [place] % (Auto) 4.2, Eos % (Auto) 0.0, Baso % (Auto) 0.1, Absolute Neuts (auto) 12.0 H, Absolute Lymphs (auto) 0.96, Nucleated RBC % 0, Differential Comment SCANNED, Hypochromasia RARE, Anisocytosis 2+, Macrocytosis 2+ 01/25/22 06:38: Sodium 134 L, Potassium 3.0 L, Chloride 91 L, Carbon Dioxide 34.0 H, Anion Gap 9, BUN 6 L, Creatinine 0.90, Estim Creat Clear Calc 68.73, Est GFR (MDRD) Af Amer 82, Est GFR (MDRD) Non-Af 68, BUN/Creatinine Ratio 6.6 L, Glucose 117 H, Calcium 8.1 L, Total Bilirubin 15.50 H*, AST 208 H, ALT 94 H, Alk taylor Phosphatase 274 H, Total Protein 5.9 L, Albumin 2.0 L, Globulin 3.9, Albumin/Globulin Ratio 0.5 L 01/25/22 06:38: Ammonia 43.0 H Physical Exam Narrative Physical exam: General: Alert, Oriented x3, Cooperative, very jaundiced, obese, anasarca HEENT: Atraumatic Oral: Moist Mucosa Neck: Supple Lungs: Diminished to auscultation Cardiovascular: HS I+II, regular, no murmurs Abdomen: Bowel Sounds Present, Soft, Non Tender Extremities: Bilateral leg edema +3?4 Skin: No rashes, No breakdown Neurological: Grossly intact Psych/Mental Status: Appropriate Assessment & Plan Assessment/Plan (1) Encephalopathy: PLAN: Her encephalopathy has resolved. (2) Epigastric pain: PLAN: Epigastric pain likely secondary to gastritis and liver stretching associated with acute liver failure is improved. She is tolerating on liquid diet I would can advance as tolerated. I do not think she needs a prokinetic at this time. Recommend PPI therapy. (3) Liver failure: PLAN: She is she should be off of the Mucomyst drip today. That does not need to be continued orally. She continues to improve. Charges/Coding Visit Charges Inpatient E&M: 26295 Subs Hosp L2
[2022-01-25] MEDS: Gabapentin 100 MG Capsule PO (18:29)
[2022-01-26] VITALS (9 sets, daily range): BP systolic 110–147; BP diastolic 65–87; PULSE 57–85; RESP 18–20; TEMP 36.1–36.7; O2SAT 93–99
[2022-01-26] MEDS: MethylPREDNISolone 125 MG/2 ML Vial 80 MG IV ×3 (05:17→17:28)
[2022-01-26] MEDS: cycloBENZAPRine HCl 10 MG Tablet PO (05:18)
[2022-01-26] MEDS: 0.9% Saline Lock 10 ML Syringe IV ×4 (05:18→20:13)
[2022-01-26 06:20] LABS: Absolute Lymphocyte Count 0.74 X10^3/uL (0.83-4.51); Basophil# 0.01 X10^3/uL; Basophil% 0.1 % (0-1); Hematocrit 28.1 % (37-47); Hemoglobin 9.8 g/dL (12.0-15.0); Lymphocyte # 0.74 X10^3/ul (0.83-4.51); Lymphocyte % 7.9 % (19-41); Mean Corp Hgb Conc 34.9 g/dL (32-36); Mean Corpuscular Hgb 39.5 pg (27.0-32.0); Mean Corpuscular Volume 113.3 fL (81-99); Mean Platelet Vol. 9.5 fl (6.2-12.0); Monocyte# 0.57 X10^3/uL; Monocyte% 6.1 % (0-10); NRBC Flagged by Analyzer 0 % (0-5); Neutrophil # 7.97 X10^3/uL (2.7-7.7); Neutrophil % 85.2 % (47-70); POSITIVE MORPHOLOGY YES; Platelet Count 225 K/mm3 (150-450); Red Blood Count 2.48 M/mm3 (4.2-5.4); White Blood Count 9.4 K/mm3 (4.4-11.0)
[2022-01-26 06:23] LABS: Differential Indicated SCAN CRITERIA MET; RBC Distribution Width SD 103.9 fl (35.1-43.9)
[2022-01-26 06:48] LABS: Differential Comment SCANNED; Target Cells 3+
[2022-01-26 06:49] LABS: Anisocytosis 2+; Macrocytosis 2+; Polychromasia 1+
[2022-01-26 06:51] LABS: Microcytosis 1+
[2022-01-26 06:57] LABS: ALB/GLOB Ratio 0.5 RATIO (0.9-2.4); AST(SGOT) 197 U/L (15-37); Alanine Aminotransfer ALT/SGPT 90 U/L (13-56); Albumin, Serum 1.8 g/dL (3.2-5.0); Alkaline Phosphatase 262 U/L (45-117); Anion Gap 8 (5-15); BUN 10 mg/dL (7-18); Chloride 92 mmol/L (98-107); Creatinine, Serum 0.72 mg/dL (0.55-1.02); EST Glomerular Filtration Rate 89 mL/min (>60); Est Glom Filt Rate - Afr Amer 108 mL/min (>60); Estimated Creatinine Clearance 85.91 ml/min; Globulin 3.4 g/dL (2.2-4.2); Glucose 112 mg/dL (74-106); Potassium 2.7 mmol/L (3.5-5.1); Protein, Total 5.2 g/dL (6.4-8.2); Sodium Level 135 mmol/L (136-145)
--- NOTE | 2022-01-26 06:57 | NURSING ---
Pts primary rn aware of k of 2.7 at this time.
[2022-01-26] MEDS: Gabapentin 100 MG Capsule PO ×3 (07:51→17:27)
[2022-01-26] MEDS: Potassium Chloride Oral Tablet 20 MEQ 60 MEQ PO (07:51)
[2022-01-26] MEDS: Potassium Chloride 10mEq/100mL 10 MEQ/100 ML IV.SOLN. 100 MEQ IV BOLUS ×4 (08:20→12:32)
[2022-01-26] MEDS: cloNIDine HCl 0.2 MG Tablet PO (09:29)
[2022-01-26] MEDS: Famotidine 20 MG Tablet PO ×2 (09:29→21:48)
[2022-01-26] MEDS: Furosemide 40 MG/4 ML Vial IV ×2 (09:29→17:28)
[2022-01-26] MEDS: Pentoxifylline 400 MG Tablet PO ×2 (09:29→21:48)
[2022-01-26] MEDS: rifAXIMin 550 MG Tablet PO ×2 (09:29→21:48)
--- NOTE | 2022-01-26 11:07 | PN.HOSP_ITS ---
Subjective Subjective Follow-up on acute liver failure/hepatic encephalopathy: Patient was seen and examined.? No acute events. Denies any abdominal discomfort. Objective Data Objective Data Vital Signs: Vital Signs Temp Pulse Resp BP Pulse Ox 97.8 F 79 18 147/87 H 99 01/26/22 09:27 01/26/22 09:27 01/26/22 09:27 01/26/22 09:27 01/26/22 09:27 Oxygen Delivery Method Room Air Weight: 117.4 kg Body Mass Index (BMI) 40.2 Intake & Output: Intake and Output for Last 24 Hours 01/24/22 01/25/22 01/26/22 23:59 23:59 23:59 Intake Total 3105.83 / 3345.83 3267.90 / 3267.90 225 / 225 Output Total 2150 / 2150 100 / 100 Balance 955.83 / 1195.83 3167.90 / 3167.90 225 / 225 Lab / Micro Data Result Diagrams: 01/26/22 05:52 01/26/22 05:52 Labs: Laboratory Results - last 24 hr 01/26/22 05:52: WBC 9.4, RBC 2.48 L, Hgb 9.8 L, Hct 28.1 L, MCV 113.3 H, MCH 39.5 H, MCHC 34.9, RDW Std Deviation 103.9 H, RDW Coeff of Arnold 26.0 H, Plt Count 225, MPV 9.5, Immature Gran % (Auto) 0.700, Neut % (Auto) 85.2 H, Lymph % (Auto) 7.9 L, [place] % (Auto) 6.1, Eos % (Auto) 0.0, Baso % (Auto) 0.1, Absolute Neuts (auto) 8.0 H, Absolute Lymphs (auto) 0.74 L, Nucleated RBC % 0, Differential Comment SCANNED, Polychromasia 1+, Anisocytosis 2+, Microcytosis 1+, Macrocytosis 2+, Target Cells 3+ 01/26/22 05:52: Sodium 135 L, Potassium 2.7 L*, Chloride 92 L, Carbon Dioxide 35.0 H, Anion Gap 8, BUN 10, Creatinine 0.72, Estim Creat Clear Calc 85.91, Est GFR (MDRD) Af Amer 108, Est GFR (MDRD) Non-Af 89, BUN/Creatinine Ratio 14.0, Glucose 112 H, Calcium 8.0 L, Total Bilirubin 12.40 H, AST 197 H, ALT 90 H, Alkaline Phosphatase 262 H, Total Protein 5.2 L, Albumin 1.8 L, Globulin 3.4, Albumin/Globulin Ratio 0.5 L 01/26/22 05:52: Ammonia 26.0 Physical Exam Narrative Physical exam: General: Alert, Oriented x3, Cooperative, very jaundiced, obese, anasarca HEENT: Atraumatic Oral: Moist Mucosa Neck: Supple Lungs: Diminished to auscultation Cardiovascular: HS I+II, regular, no murmurs Abdomen: Bowel Sounds Present, Soft, Non Tender Extremities: Bilateral leg edema +2 Skin: No rashes, No breakdown Neurological: Grossly intact Psych/Mental Status: Appropriate Assessment & Plan Assessment/Plan (1) Liver failure: PLAN: Plan Summary: 56-year-old with past medical history of alcohol abuse, who takes about 3 tablets of Tylenol daily comes in with generalized fatigue, jaundice ongoing for about 1 to 2 weeks. Patient was found to be in acute liver failure. 1. Acute liver failure likely secondary to alcoholic hepatitis vs drug-induced injury from chronic Tylenol use Patient's liver enzymes slightly improved-total bilirubin is 12.40, minimal improvement in AST ALT and ALP Patient's CT abd/pelvis shows hepatomegaly, gallbladder sludge without cholecystitis, no stone seen Salicylate level was 1.7, Tylenol level was less than 2. Hepatitis profile is unremarkable Liver ultrasound shows fatty liver, enlarged liver, pericholecystic fluid, no gallstones Ammonia level is 26 Off IV mucocmyst Continue lactulose, rifaximin, famotidine, Lasix, IV Solu-Medrol 80 mg every 6h, IV pentoxifylline GI following 2. Severe hypokalemia, K2.7, replaced, recheck in a.m. 3. Acute hepatic encephalopathy secondary to #1 Patient's admitting ammonia was 94; ammonia today is 26 Continue on rifaximin and lactulose 4. Generalized edema likely due to hypoalbuminemia #1 Continue on Lasix, will continue to monitor weights 5. Hypertension, continue on clonidine 6. Anxiety/depression, continue on fluoxetine 7. DVT PPx- SCDs Charges/Coding Visit Charges Inpatient E&M: 31573 Subs Hosp L2
[2022-01-26 15:42] LABS: Magnesium 1.8 mg/dL (1.6-2.6)
[2022-01-27] VITALS (11 sets, daily range): BP systolic 113–141; BP diastolic 71–92; PULSE 50–74; RESP 16–18; TEMP 35.8–36.7; O2SAT 95–99
[2022-01-27] MEDS: MethylPREDNISolone 125 MG/2 ML Vial 80 MG IV ×5 (00:57→23:13)
[2022-01-27] MEDS: 0.9% Saline Lock 10 ML Syringe IV ×5 (00:59→23:44)
[2022-01-27 05:09] LABS: Absolute Lymphocyte Count 0.65 X10^3/uL (0.83-4.51); Absolute Neutrophil Count 9.1 X10^3/uL (2.0-7.7); Basophil# 0.01 X10^3/uL; Basophil% 0.1 % (0-1); Hematocrit 29.8 % (37-47); Hemoglobin 10.1 g/dL (12.0-15.0); Lymphocyte # 0.65 X10^3/ul (0.83-4.51); Lymphocyte % 6.3 % (19-41); Mean Corp Hgb Conc 33.9 g/dL (32-36); Mean Corpuscular Hgb 39.3 pg (27.0-32.0); Mean Platelet Vol. 9.4 fl (6.2-12.0); Monocyte# 0.54 X10^3/uL; Monocyte% 5.2 % (0-10); NRBC Flagged by Analyzer 0 % (0-5); Neutrophil # 9.14 X10^3/uL (2.7-7.7); Neutrophil % 87.8 % (47-70); POSITIVE MORPHOLOGY YES; Platelet Count 221 K/mm3 (150-450); RBC Distribution Width CV 25.5 % (11.6-14.6); Red Blood Count 2.57 M/mm3 (4.2-5.4); White Blood Count 10.4 K/mm3 (4.4-11.0)
[2022-01-27 05:18] LABS: Differential Indicated SCAN CRITERIA MET; RBC Distribution Width SD 105.9 fl (35.1-43.9)
[2022-01-27] MEDS: cycloBENZAPRine HCl 10 MG Tablet PO (05:34)
[2022-01-27 05:36] LABS: ALB/GLOB Ratio 0.5 RATIO (0.9-2.4); AST(SGOT) 284 U/L (15-37); Alanine Aminotransfer ALT/SGPT 118 U/L (13-56); Albumin, Serum 1.9 g/dL (3.2-5.0); Alkaline Phosphatase 324 U/L (45-117); Anion Gap 5 (5-15); BUN 17 mg/dL (7-18); BUN/Creat Ratio 21.7 RATIO (10-20); Calcium,Total 7.7 mg/dL (8.5-10.1); Chloride 93 mmol/L (98-107); Creatinine, Serum 0.78 mg/dL (0.55-1.02); EST Glomerular Filtration Rate 80 mL/min (>60); Est Glom Filt Rate - Afr Amer 97 mL/min (>60); Estimated Creatinine Clearance 79.31 ml/min; Globulin 3.6 g/dL (2.2-4.2); Glucose 110 mg/dL (74-106); Potassium 3.3 mmol/L (3.5-5.1); Protein, Total 5.5 g/dL (6.4-8.2); Sodium Level 134 mmol/L (136-145)
[2022-01-27 05:37] LABS: Anisocytosis 3+; Macrocytosis 3+
[2022-01-27] MEDS: Potassium Chloride Oral Tablet 20 MEQ 40 MEQ PO (08:16)
[2022-01-27] MEDS: Famotidine 20 MG Tablet PO ×2 (08:17→23:13)
[2022-01-27] MEDS: Gabapentin 100 MG Capsule PO ×3 (08:17→17:48)
[2022-01-27] MEDS: rifAXIMin 550 MG Tablet PO ×2 (08:18→23:13)
[2022-01-27] MEDS: cloNIDine HCl 0.2 MG Tablet PO (08:18)
[2022-01-27] MEDS: Pentoxifylline 400 MG Tablet PO ×2 (08:18→23:13)
[2022-01-27] MEDS: Lactulose 20 GM/30 ML UDC PO (08:19)
[2022-01-27] MEDS: Furosemide 40 MG/4 ML Vial IV ×2 (10:58→17:48)
--- NOTE | 2022-01-27 12:37 | PN.HOSP_ITS ---
Subjective Subjective Patient states she feels much better overall. She states the swelling in her lower extremities is gone. She has no specific complaints this morning. No further epigastric pain. Diet was advanced and patient is tolerating this better. Objective Data Objective Data Vital Signs: Vital Signs Temp Pulse Resp BP Pulse Ox 97.9 F 74 18 113/92 H 95 01/27/22 10:56 01/27/22 10:56 01/27/22 10:56 01/27/22 10:56 01/27/22 10:56 Oxygen Delivery Method Room Air Weight: 117.2 kg Body Mass Index (BMI) 40.2 Intake & Output: Intake and Output for Last 24 Hours 01/25/22 01/26/22 01/27/22 23:59 23:59 23:59 Intake Total 3267.90 / 3267.90 1325 / 1325 320 / 320 Output Total 100 / 100 Balance 3167.90 / 3167.90 1325 / 1325 320 / 320 Lab / Micro Data Result Diagrams: 01/27/22 04:54 01/27/22 04:54 Labs: Laboratory Results - last 24 hr 01/26/22 05:52: Magnesium 1.8 01/27/22 04:54: Ammonia 29.0 01/27/22 04:54: WBC 10.4, RBC 2.57 L, Hgb 10.1 L, Hct 29.8 L, MCV 116.0 H, MCH 39.3 H, MCHC 33.9, RDW Std Deviation 105.9 H, RDW Coeff of Arnold 25.5 H, Plt Count 221, MPV 9.4, Immature Gran % (Auto) 0.600, Neut % (Auto) 87.8 H, Lymph % (Auto) 6.3 L, [place] % (Auto) 5.2, Eos % (Auto) 0.0, Baso % (Auto) 0.1, Absolute Neuts (auto) 9.1 H, Absolute Lymphs (auto) 0.65 L, Nucleated RBC % 0, Anisocytosis 3+, Macrocytosis 3+ 01/27/22 04:54: Sodium 134 L, Potassium 3.3 L, Chloride 93 L, Carbon Dioxide 36.0 H, Anion Gap 5, BUN 17, Creatinine 0.78, Estim Creat Clear Calc 79.31, Est GFR (MDRD) Af Amer 97, Est GFR (MDRD) Non-Af 80, BUN/Creatinine Ratio 21.7 H, Glucose 110 H, Calcium 7.7 L, Magnesium 2.0, Total Bilirubin 12.60 H, AST 284 H, ALT 118 H, Alkaline Phosphatase 324 H, Total Protein 5.5 L, Albumin 1.9 L, Globu briana 3.6, Albumin/Globulin Ratio 0.5 L Physical Exam Const alert and oriented x3 Constitutional Narrative: Obese, middle-aged, white female sitting up in bed watching television, appears older than stated age, nontoxic appearing, very pleasant Resp normal respiratory effort, no retractions, no use of accessory muscles and clear to auscultation bilaterally Cardio regular rate, regular rhythm, S1 normal heart sound, S2 normal heart sound, no murmurs, no rub, no gallops, no clicks and no JVD GI normal to inspection, nondistended, normoactive bowel sounds, soft to palpation and non-distended GI Narrative: Mild tenderness in the epigastric region but otherwise unremarkable Palpation: tender epigastric (Very minimal) Extremity no clubbing, cyanosis or edema Neuro oriented x3, CN's II-XII intact bilaterally, moves all extremities and no focal motor deficits Neuro Narrative: Mild generalized weakness Sensorium / Orientation: awake, alert, oriented to person, oriented to place and oriented to time Speech: speech normal Psych affect normal Psych Narrative: Very pleasant and appropriately interactive Assessment & Plan Assessment/Plan (1) Liver failure: (2) Hypokalemia: (3) Encephalopathy: (4) Edema: PLAN: Plan Acute liver failure -Suspect to be related to acute alcoholic hepatitis plus minus drug-induced liver injury from Tylenol use -Patient indicates she is told her to get rid of all the alcohol in the house and get rid of the Tylenol -Continue steroids per GI for Madrey score of 70 -Mucomyst has been discontinued as treatments been completed -Continue pentoxifylline -Patient has never had INR elevation -Await further input from GI -Anticipate discharge in the next 24 hours if patient continues to do well -We will need outpatient GI follow-up Metabolic/toxic encephalopathy-hepatic -Resolved -Continue rifaximin and lactulose -Goal is 2-3 bowel movements daily Generalized edema -Suspected that this was related to hypoalbuminemia -Edema has resolved Chronic macrocytic anemia -Suspect related to liver disease -Counts stable Hypertension -Continue home clonidine Hypokalemia -Improved -Repeat 40 mill equivalent p.o. dosing -Magnesium is normal Anxiety/depression -Continue home fluoxetine Neuropathy -Continue home gabapentin GERD -Continue home Protonix DVT prophylaxis -Start enoxaparin CODE STATUS -Full code Charges/Coding Visit Charges Inpatient E&M: 57073 Subs Hosp L2
--- NOTE | 2022-01-27 13:52 | PCM.PROGNOTE ---
Subjective Subjective Patient looks a lot better today and she says she feels a lot better. She was able to advance her diet for the first time yesterday without nausea and abdominal discomfort. She has gained some weight since being in the hospital. Objective Data Objective Data Vital Signs: Vital Signs Temp Pulse Resp BP Pulse Ox 97.9 F 74 18 113/92 H 95 01/27/22 10:56 01/27/22 10:56 01/27/22 10:56 01/27/22 10:56 01/27/22 10:56 Oxygen Delivery Method Room Air Weight: 258 lb 6.108 oz Body Mass Index (BMI) 40.2 Intake & Output: Intake and Output for Last 24 Hours 01/25/22 01/26/22 01/27/22 23:59 23:59 23:59 Intake Total 3267.90 / 3267.90 1325 / 1325 320 / 320 Output Total 100 / 100 Balance 3167.90 / 3167.90 1325 / 1325 320 / 320 Lab / Micro Data Result Diagrams: 01/27/22 04:54 01/27/22 04:54 Labs: Laboratory Results - last 24 hr 01/26/22 05:52: Magnesium 1.8 01/27/22 04:54: Ammonia 29.0 01/27/22 04:54: WBC 10.4, RBC 2.57 L, Hgb 10.1 L, Hct 29.8 L, MCV 116.0 H, MCH 39.3 H, MCHC 33.9, RDW Std Deviation 105.9 H, RDW Coeff of Arnold 25.5 H, Plt Count 221, MPV 9.4, Immature Gran % (Auto) 0.600, Neut % (Auto) 87.8 H, Lymph % (Auto) 6.3 L, [place] % (Auto) 5.2, Eos % (Auto) 0.0, Baso % (Auto) 0.1, Absolute Neuts (auto) 9.1 H, Absolute Lymphs (auto) 0.65 L, Nucleated RBC % 0, Anisocytosis 3+, Macrocytosis 3+ 01/27/22 04:54: Sodium 134 L, Potassium 3.3 L, Chloride 93 L, Carbon Dioxide 36.0 H, Anion Gap 5, BUN 17, Creatinine 0.78, Estim Creat Clear Calc 79.31, Est GFR (MDRD) Af Amer 97, Est GFR (MDRD) Non-Af 80, BUN/Creatinine Ratio 21.7 H, Glucose 110 H, Calcium 7.7 L, Magnesium 2.0, Total Bilirubin 12.60 H, AST 284 H, ALT 118 H, Alkaline Phosphatase 324 H, Total Protein 5.5 L, Albumin 1.9 L, Globulin 3.6, Albumin/Globulin Ratio 0.5 L Physical Exam Const alert and oriented x3 Constitutional Narrative: Obese, middle-aged, white female sitting up in bed watching television, appears older than stated age, nontoxic appearing, very pleasant Resp normal respiratory effort, no retractions, no use of accessory muscles and clear to auscultation bilaterally Cardio regular rate, regular rhythm, S1 normal heart sound, S2 normal heart sound, no murmurs, no rub, no gallops, no clicks and no JVD GI normal to inspection, nondistended, normoactive bowel sounds, soft to palpation and non-distended GI Narrative: Mild tenderness in the epigastric region but otherwise unremarkable Palpation: tender epigastric (Very minimal) Extremity no clubbing, cyanosis or edema Neuro oriented x3, CN's II-XII intact bilaterally, moves all extremities and no focal motor deficits Neuro Narrative: Mild generalized weakness Sensorium / Orientation: awake, alert, oriented to person, oriented to place and oriented to time Speech: speech normal Psych affect normal Psych Narrative: Very pleasant and appropriately interactive Assessment & Plan Assessment/Plan (1) Encephalopathy: PLAN: Acute encephalopathy associated with liver failure has resolved. Low kings criteria for severe liver failure. (2) Weight gain: PLAN: Her weight gain is thought to be secondary to fluids. Okay to use diuretic therapy from my standpoint. (3) Liver failure: PLAN: Patient liver function test are improving slowly. They can take a long time for the liver function test to normalize. If her LFTs continue to go down tomorrow then she can be DC'd to home with close follow-up as an outpatient on steroids, pentoxyfilline and PPI therapy. Charges/Coding Visit Charges Inpatient E&M: 72578 Subs Hosp L2
[2022-01-28 03:00] VITALS: PULSE 64
[2022-01-28 05:00] VITALS: BP 115/66; PULSE 54; RESP 16; TEMP 35.8; O2SAT 95
[2022-01-28 05:05] LABS: Absolute Lymphocyte Count 0.55 X10^3/uL (0.83-4.51); Absolute Neutrophil Count 9.7 X10^3/uL (2.0-7.7); Basophil# 0.01 X10^3/uL; Basophil% 0.1 % (0-1); Hematocrit 28.9 % (37-47); Hemoglobin 9.7 g/dL (12.0-15.0); Lymphocyte # 0.55 X10^3/ul (0.83-4.51); Mean Corp Hgb Conc 33.6 g/dL (32-36); Mean Corpuscular Hgb 39.1 pg (27.0-32.0); Mean Corpuscular Volume 116.5 fL (81-99); Mean Platelet Vol. 9.7 fl (6.2-12.0); Monocyte# 0.72 X10^3/uL; Monocyte% 6.5 % (0-10); NRBC Flagged by Analyzer 0 % (0-5); Neutrophil # 9.66 X10^3/uL (2.7-7.7); Neutrophil % 87.2 % (47-70); POSITIVE DIFFERENTIAL YES; POSITIVE MORPHOLOGY YES; Platelet Count 218 K/mm3 (150-450); RBC Distribution Width CV 24.7 % (11.6-14.6); Red Blood Count 2.48 M/mm3 (4.2-5.4); White Blood Count 11.1 K/mm3 (4.4-11.0)
[2022-01-28 05:09] LABS: Differential Indicated SCAN CRITERIA MET
[2022-01-28 05:27] LABS: Anisocytosis 3+; Macrocytosis 3+
[2022-01-28 05:46] LABS: ALB/GLOB Ratio 0.5 RATIO (0.9-2.4); AST(SGOT) 296 U/L (15-37); Alanine Aminotransfer ALT/SGPT 130 U/L (13-56); Albumin, Serum 1.8 g/dL (3.2-5.0); Alkaline Phosphatase 325 U/L (45-117); Anion Gap 5 (5-15); BUN 21 mg/dL (7-18); BUN/Creat Ratio 27.9 RATIO (10-20); Calcium,Total 7.5 mg/dL (8.5-10.1); Chloride 95 mmol/L (98-107); Creatinine, Serum 0.75 mg/dL (0.55-1.02); EST Glomerular Filtration Rate 84 mL/min (>60); Est Glom Filt Rate - Afr Amer 101 mL/min (>60); Estimated Creatinine Clearance 82.48 ml/min; Globulin 3.4 g/dL (2.2-4.2); Glucose 117 mg/dL (74-106); Magnesium 2.3 mg/dL (1.6-2.6); Potassium 2.8 mmol/L (3.5-5.1); Protein, Total 5.2 g/dL (6.4-8.2); Sodium Level 138 mmol/L (136-145)
[2022-01-28] MEDS: MethylPREDNISolone 125 MG/2 ML Vial 80 MG IV ×2 (06:22→11:26)
[2022-01-28] MEDS: 0.9% Saline Lock 10 ML Syringe IV ×2 (06:22→11:25)
[2022-01-28] MEDS: Potassium Chloride Oral Tablet 20 MEQ 40 MEQ PO ×2 (06:56→15:06)
[2022-01-28 07:01] VITALS: PULSE 73
[2022-01-28 08:30] VITALS: BP 132/75; PULSE 77; RESP 18; TEMP 36.5; O2SAT 97
[2022-01-28] MEDS: Gabapentin 100 MG Capsule PO ×2 (08:33→11:25)
[2022-01-28] MEDS: Potassium Chloride Oral Tablet 20 MEQ 60 MEQ PO (08:33)
[2022-01-28] MEDS: rifAXIMin 550 MG Tablet PO (08:35)
[2022-01-28] MEDS: Lactulose 20 GM/30 ML UDC PO (08:35)
[2022-01-28] MEDS: cloNIDine HCl 0.2 MG Tablet PO (08:35)
[2022-01-28] MEDS: Enoxaparin 40 MG/0.4 ML Syringe SC (08:36)
[2022-01-28] MEDS: Pentoxifylline 400 MG Tablet PO (08:36)
[2022-01-28] MEDS: Famotidine 20 MG Tablet PO (08:36)
[2022-01-28] MEDS: Furosemide 40 MG Tablet PO (08:46)
[2022-01-28 11:00] VITALS: PULSE 73
--- NOTE | 2022-01-28 12:07 | PCM.DC.SUM ---
Providers Date of Admission: 01/23/22 Date of Discharge: 01/28/22 Primary Care Physician: Dr. Klaudia Ashley, Consultations 01/23/22 17:25 Consult: Gastroenterology Routine Consulting Provider: [facility] Reason for Consult: Liver failure EMERGENT Consult: No MD Notified: Yes Date Notified: 01/23/22 Time Notified: 16:35 Method of Notification: ED Physician Initiated Reason For Visit: ACUTE LIVER FAILURE Diagnosis Discharge Diagnosis (1) Encephalopathy: Status: Acute Code(s): G93.40 - Encephalopathy, unspecified (2) Weight gain: Status: Acute (3) Liver failure: Status: Acute Code(s): K72.90 - Hepatic failure, unspecified without coma Plan Acute liver failure -Suspect to be related to acute alcoholic hepatitis plus minus drug-induced liver injury from Tylenol use -Patient indicates she is told her to get rid of all the alcohol in the house and get rid of the Tylenol -Continue steroids per GI for Madrey score of 70 -Mucomyst has been discontinued as treatments been completed -Continue pentoxifylline -Patient has never had INR elevation -Await further input from GI -Anticipate discharge in the next 24 hours if patient continues to do well -We will need outpatient GI follow-up Metabolic/toxic encephalopathy-hepatic -Resolved -Continue rifaximin and lactulose -Goal is 2-3 bowel movements daily Generalized edema -Suspected that this was related to hypoalbuminemia -Edema has resolved Chronic macrocytic anemia -Suspect related to liver disease -Counts stable Hypertension -Continue home clonidine Hypokalemia -Improved -Repeat 40 mill equivalent p.o. dosing -Magnesium is normal Anxiety/depression -Continue home fluoxetine Neuropathy -Continue home gabapentin GERD -Continue home Protonix DVT prophylaxis -Start enoxaparin CODE STATUS -Full code Medications at Discharge Home Medications clonidine HCl 0.2 mg tablet 0.2 mg PO DAILY blood pressure 09/04/14 pantoprazole 20 mg tablet,delayed release 20 mg PO DAILY reflux 03/23/17 fluoxetine 10 mg capsule 10 mg PO PRN PRN depression 01/19/21 potassium chloride 20 mEq tablet,extended release(part/cryst) (Klor-Con M) 20 meq PO TID 01/23/22 furosemide 40 mg tablet 40 mg PO DAILY #30 tabs 01/28/22 furosemide 40 mg tablet (Lasix) 40 mg PO DAILY #30 tabs 01/28/22 gabapentin 300 mg capsule 300 mg PO TID #90 caps 01/28/22 lactulose 20 gram/30 mL oral solution 20 g (30 mL) PO DAILY #3,000 mL 01/28/22 pantoprazole 40 mg tablet,delayed release (Protonix) 40 mg PO DAILY #30 tabs 01/28/22 pentoxifylline 400 mg tablet,extended release 400 mg PO BID #60 tabs 01/28/22 prednisone 20 mg tablet 60 mg PO DAILY #90 tabs 01/28/22 rifaximin 550 mg tablet (Xifaxan) 550 mg PO BID #60 tabs 01/28/22 Hospital Course Operations None Procedures - (Gallbladder ultrasound/CT of the abdomen pelvis/CT of the head) Summary of Care Provided Minutes Spent on Discharge: 39 Hospital Course: Mrs. Castellanos is a 56-year-old white female who presented to the emergency department [facility] on 01/23/2022 with a chief complaint of jaundice x2 weeks, abdominal pain, bilateral lower extremity swelling x1 week. The patient has a history of chronic alcohol abuse and has also been taking Tylenol extra strength 3 tablets 3 times a day for several weeks. She has a history of gastric bypass surgery as well. She reported she drank about 3 glasses of vodka every day and her spouse noted she was jaundiced about 2 weeks ago. She started feeling unwell approximately 1 week prior to admission. She had abdominal discomfort but no pain on presentation and felt fatigued. Her vital signs on presentation were unremarkable. Her CBC showed a mild anemia on presentation with an INR of 1.4. Her chemistry panel showed a sodium of 133, potassium 3.5 and a normal BUN and creatinine however her liver enzymes are markedly elevated with a total bilirubin of 16.2 and AST of 29 and ALT of 89 and an alkaline phosphatase of 313. Her ammonia was 64. A lipase was normal and a CT of her brain showed chronic evolutionary changes. The CT of her abdomen pelvis showed findings concerning for acute cholecystitis but no gallstones were seen. The patient was admitted to the medical floor and gastroenterology was consulted they felt that her transaminitis and liver failure was most likely due to alcoholic hepatitis with possibly drug-induced injury from her Tylenol use. Her Madrey score was markedly elevated at 70 and she was started on Solu-Medrol therapy. She was also started on oxacillin therapy and was placed on a Mucomyst drip which she completed. Her INR was normalized throughout her hospitalization. She was also placed on lactulose and Xifaxan for hepatic encephalopathy. With time her encephalopathy improved and her mentation improved to normal. She was also placed on IV Lasix given her swelling which resulted in resolution of her edema. Her Lasix was weaned to oral daily 40 mg during her stay. She had ongoing issues with her potassium levels and was replaced on a daily basis. She is on 60 mill equivalents of potassium at home on at baseline. I do anticipate with the initiation of Lasix that she will need to continue this and have recommended a follow-up BMP be performed on 01/31/2022. The patient is to call her primary care physician for this order on discharge. It was discussed with her and placed in her discharge instructions. Her transaminases escalated but stabilized prior to discharge while her bilirubin trended down. She remains jaundiced however this should improve as her bilirubin continues to de-escalate. Overall she was feeling much better prior to discharge. We discharged her with prescriptions for prednisone 60 mg daily and she is to follow-up with Dr. Ocampo for de-escalation of her steroids, pentoxifylline, rifaximin, lactulose, Lasix, and we did discontinue her gabapentin and exchanged for a higher dose that she was having ongoing bilateral lower extremity neuropathy which may be related to her history of alcohol abuse. We extensively counseled her on sobriety and she has instructed her to get rid of all the alcohol in the house she also was given information for follow-up outpatient alcoholism support. We also instructed her to avoid Tylenol for pain. We did discuss with her intermittent NSAID use would be okay but no more than 600 mg intermittently for headache. We also gave her prescription for Protonix given her ongoing steroid use as an outpatient until this is completed. She was able to be discharged home in stable condition on 01/28/2022. Discharge diagnoses: Acute liver failure secondary to alcoholic hepatitis Tylenol abuse Alcohol abuse Toxic/metabolic encephalopathy secondary to hepatic encephalopathy-resolved Generalized edema-resolved Chronic macrocytic anemia Hypertension Hypokalemia-improved Anxiety Depression Neuropathy GERD Physical Exam Const alert, oriented x3 and no apparent distress Constitutional Narrative: Obese, middle-aged, white female sitting up in bed watching television, appears older than stated age, nontoxic appearing, very pleasant General Appearance: cooperative, comfortable, well kempt, well developed and appears older than stated age Orientation / Consciousness: awake Exam Limitations: no limitations Nutritional Appearance: obese HEENT normocephalic, head/scalp atraumatic, hearing grossly normal bilaterally and moist oral mucous membranes HEENT Narrative: Edentulous, Mallampati is 2, no thrush Eyes PERRL, EOMs intact bilaterally and conjunctivae normal Eyes Narrative: Positive scleral icterus Neck no lymphadenopathy, supple, no JVD and no carotid bruits Neck Narrative: Trachea midline, no thyroid enlargement Resp normal respiratory effort, no retractions, no use of accessory muscles and clear to auscultation bilaterally Auscultation: Negative for crackles, rales, rhonchi or wheezes Cardio regular rate, regular rhythm, S1 normal heart sound, S2 normal heart sound, no murmurs, no rub, no gallops, no clicks and no JVD GI normal to inspection, nondistended, normoactive bowel sounds, soft to palpation, non-tender and non-distended Palpation: tender epigastric (Very minimal) Extremity no clubbing, cyanosis or edema Extremity Narrative: 2+ pedal pulses Skin no rashes or lesions noted, no wounds, skin turgor normal and No no jaundice Skin Narrative: Patient is jaundice Neuro oriented x3, CN's II-XII intact bilaterally, moves all extremities and no focal motor deficits Neuro Narrative: Mild generalized weakness Sensorium / Orientation: awake, alert, oriented to person, oriented to place and oriented to time Speech: speech normal Psych affect normal Psych Narrative: Very pleasant and appropriately interactive Weight / BMI Weight Weight: 117.2 kg Body Mass Index (BMI) 40.2 ABG / Lab / Microbiology Data Result Diagrams: 01/28/22 04:41 01/28/22 04:41 Laboratory: Laboratory Results - last 24 hr 01/28/22 04:41: WBC 11.1 H, RBC 2.48 L, Hgb 9.7 L, Hct 28.9 L, MCV 116.5 H, MCH 39.1 H, MCHC 33.6, RDW Std Deviation 103.0 H, RDW Coeff of Arnold 24.7 H, Plt Count 218, MPV 9.7, Immature Gran % (Auto) 1.200 H, Neut % (Auto) 87.2 H, Lymph % (Auto) 5.0 L, [place] % (Auto) 6.5, Eos % (Auto) 0.0, Baso % (Auto) 0.1, Absolute Neuts (auto) 9.7 H, Absolute Lymphs (auto) 0.55 L, Nucleated RBC % 0, Anisocytosis 3+, Macrocytosis 3+ 01/28/22 04:41: Sodium 138, Potassium 2.8 L, Chloride 95 L, Carbon Dioxide 38.0 H, Anion Gap 5, BUN 21 H, Creatinine 0.75, Estim Creat Clear Calc 82.48, Est GFR (MDRD) Af Amer 101, Est GFR (MDRD) Non-Af 84, BUN/Creatinine Ratio 27.9 H, Glucose 117 H, Calcium 7.5 L, Magnesium 2.3, Total Bilirubin 11.30 H, AST 296 H, ALT 130 H, Alkaline Phosphatase 325 H, Total Protein 5.2 L, Albumin 1.8 L, Globulin 3.4, Albumin/Globulin Ratio 0.5 L D/C Instructions Discharge Diet: Low fat / Low cholesterol and 2000 mg Sodium Diet Discharge Activity: Return to Normal Activity Return to work on: 01/29/22 Meaningful Use Info Meaningful Use Diagnoses (Choose all that apply): None applicable Discharge Plan Admission Admit Date/Time: 01/23/22 16:06 Primary Reason for Your Visit: Bilateral lower extremity swelling Attending Provider: Genet Ramon Primary Care Provider: Klaudia Ashley Consulting Providers: Yudi Mcmillan Instructions Additional Instructions / Restrictions: 1. Please call your primary care physician's office tomorrow 01/29/2022 to obtain an order for a complete metabolic profile to be performed on 01/31/2022 to recheck your potassium and your kidney function with the ongoing use of Lasix Discharge Orders/Prescriptions Prescriptions: New furosemide 40 mg Tablet 40 mg PO DAILY Qty: 30 0RF pentoxifylline 400 mg Tablet Extended Release 400 mg PO BID Qty: 60 1RF Xifaxan 550 mg Tablet 550 mg PO BID Qty: 60 1RF lactulose 20 gram/30 mL Solution 20 g PO DAILY Qty: 3000 0RF prednisone 20 mg tablet 60 mg PO DAILY Qty: 90 0RF pantoprazole [Protonix] 40 mg tablet,delayed release (DR/EC) 40 mg PO DAILY Qty: 30 1RF furosemide [Lasix] 40 mg tablet 40 mg PO DAILY Qty: 30 0RF gabapentin 300 mg capsule 300 mg PO TID Qty: 90 0RF Continued clonidine HCl 0.2 MG tablet 0.2 mg PO DAILY Label Comments: blood pressure pantoprazole 20 MG tablet 20 mg PO DAILY fluoxetine 10 mg Capsule 10 mg PO PRN PRN (Reason: depression) potassium chloride [Klor-Con M20] 20 mEq tablet,ER particles/crystals 20 meq PO TID Discontinued gabapentin 100 mg Capsule 100 mg PO TID Referrals / Follow Up: Klaudia Ashley DO [Primary Care Provider] - In 1 Day Friend,DO Feliciano [STAFF PHYSICIAN] - Within 2 Weeks (Call 01/29/2022 for an appointment-Hospital follow-up) Disposition Disposition (needs filled in before D/C Order can be placed): Home, Self Care Charges/Coding Visit Charges Inpatient E&M: 10163 Disch Hosp
[2022-01-28 12:30] VITALS: BP 132/75; PULSE 77; RESP 18; TEMP 36.5; O2SAT 97
[2022-01-28 13:34] LABS: Anion Gap 7 (5-15); BUN 20 mg/dL (7-18); BUN/Creat Ratio 24.7 RATIO (10-20); Calcium,Total 8.1 mg/dL (8.5-10.1); Chloride 95 mmol/L (98-107); Creatinine, Serum 0.81 mg/dL (0.55-1.02); EST Glomerular Filtration Rate 77 mL/min (>60); Est Glom Filt Rate - Afr Amer 93 mL/min (>60); Estimated Creatinine Clearance 76.37 ml/min; Glucose 108 mg/dL (74-106); Potassium 3.5 mmol/L (3.5-5.1); Sodium Level 138 mmol/L (136-145)
--- NOTE | 2022-01-28 13:42 | CASEMGMT ---
Pt states no need for any HHC at discharge. Pt is stand by assist in room with cane. Pt voices no further questions/concerns/needs. Mike RAMOS CM
--- NOTE | 2022-01-28 14:51 | PHA.DC.MC ---
Pharmacy Service has performed discharge medication reconciliation and counseling for this patient. Spoke to rosalva Gregory to D/C duplicate furosemide and pantoprazole 20mg. 1. FUROSEMIDE 40MG PO DAILY 2. LACTULOSE 30ML PO DAILY 3. RIFAXIMIN 550MG PO BID 4. PREDNISONE 60MG PO DAILY (TAPER TO BE SET UP OUTPATIENT) 5. PENTOXIFYLLINE 40MG PO BID The patient's discharge medication list was reviewed for discrepancies and discrepancies were resolved. Home Medications clonidine HCl 0.2 mg tablet 0.2 mg PO DAILY blood pressure 09/04/14 fluoxetine 10 mg capsule 10 mg PO PRN PRN depression 01/19/21 potassium chloride 20 mEq tablet,extended release(part/cryst) (Klor-Con M) 20 meq PO TID 01/23/22 furosemide 40 mg tablet 40 mg PO DAILY #30 tabs 01/28/22 gabapentin 300 mg capsule 300 mg PO TID #90 caps 01/28/22 lactulose 20 gram/30 mL oral solution 20 g (30 mL) PO DAILY #3,000 mL 01/28/22 pantoprazole 40 mg tablet,delayed release (Protonix) 40 mg PO DAILY #30 tabs 01/28/22 pentoxifylline 400 mg tablet,extended release 400 mg PO BID #60 tabs 01/28/22 prednisone 20 mg tablet 60 mg PO DAILY #90 tabs 01/28/22 rifaximin 550 mg tablet (Xifaxan) 550 mg PO BID #60 tabs 01/28/22 The patient was counseled on the following discharge medications and changes in medications for homegoing were reviewed. The Reason for Use, instructions for use, and potential side effects were reviewed for all new medications. The patient's questions regarding all of their medications were answered. The patient was able to verbally demonstrate an understanding of their discharge medications.
== END 2022-01-28 15:31 | disposition home or self-care (01) | DRG 432 ==
LOC: ED 16:14 → PCU 16:24
PROVIDERS: Admitting Provider Internal Medicine; Emergency Provider Student in an Organized Health Care Education/Training Program; PCP Family Medicine; Visit Provider Internal Medicine
DX: K70.10 Alcoholic hepatitis without ascites (principal); K72.00 Acute and subacute hepatic failure without coma; G92.8 Other toxic encephalopathy; Z68.41 Body mass index [BMI] 40.0-44.9, adult; E88.09 Other disorders of plasma-protein metabolism, not elsewhere classified; E66.01 Morbid (severe) obesity due to excess calories; E78.5 Hyperlipidemia, unspecified; F10.10 Alcohol abuse, uncomplicated; D50.9 Iron deficiency anemia, unspecified; I10 Essential (primary) hypertension; F41.9 Anxiety disorder, unspecified; E87.6 Hypokalemia; E83.42 Hypomagnesemia; K76.0 Fatty (change of) liver, not elsewhere classified; K29.70 Gastritis, unspecified, without bleeding; K21.9 Gastro-esophageal reflux disease without esophagitis; G62.9 Polyneuropathy, unspecified; Z79.899 Other long term (current) drug therapy; Z86.73 Personal history of transient ischemic attack (TIA), and cerebral infarction without residual deficits; Z98.84 Bariatric surgery status; Z87.891 Personal history of nicotine dependence; F32.A Depression, unspecified; T39.1X5A Adverse effect of 4-Aminophenol derivatives, initial encounter
CPT/HCPCS: 36415; 70450; 74177; 76705; 80048; 80053; 80076; 80307; 80329; 81001; 82077; 82140; 82607; 82746; 83690; 83735; 85025; 85610; 85730; 97802; 99251; 99283; J7030; Q9967; A4216; G0463; G0480; J1940; J2405; J3490

== ENCOUNTER → 2022-01-31 | Outpatient (CLI) | payer MEDICARE, SELFPAY ==
[2022-01-31 15:48] LABS: ALB/GLOB Ratio 0.6 RATIO (0.9-2.4); AST(SGOT) 374 U/L (15-37); Alanine Aminotransfer ALT/SGPT 247 U/L (13-56); Albumin, Serum 2.1 g/dL (3.2-5.0); Alkaline Phosphatase 266 U/L (45-117); Anion Gap 6 (5-15); BUN 25 mg/dL (7-18); BUN/Creat Ratio 30.5 RATIO (10-20); Calcium,Total 8.4 mg/dL (8.5-10.1); Chloride 106 mmol/L (98-107); Creatinine, Serum 0.82 mg/dL (0.55-1.02); EST Glomerular Filtration Rate 76 mL/min (>60); Est Glom Filt Rate - Afr Amer 92 mL/min (>60); Globulin 3.7 g/dL (2.2-4.2); Glucose 93 mg/dL (74-106); Potassium 4.6 mmol/L (3.5-5.1); Protein, Total 5.8 g/dL (6.4-8.2); Sodium Level 138 mmol/L (136-145)
== END | disposition home or self-care (01) ==
LOC: LAB 14:25
PROVIDERS: PCP Family Medicine; Referring Provider Family Medicine; Visit Provider Family Medicine
DX: I10 Essential (primary) hypertension (principal); K72.90 Hepatic failure, unspecified without coma
CPT/HCPCS: 36415; 80053

== ENCOUNTER → 2022-02-25 | Outpatient (CLI) | payer MEDICARE, SELFPAY ==
[2022-02-25 15:49] LABS: ALB/GLOB Ratio 0.7 RATIO (0.9-2.4); AST(SGOT) 91 U/L (15-37); Alanine Aminotransfer ALT/SGPT 169 U/L (13-56); Albumin, Serum 2.4 g/dL (3.2-5.0); Alkaline Phosphatase 214 U/L (45-117); Anion Gap 3 (5-15); BUN 21 mg/dL (7-18); BUN/Creat Ratio 35.4 RATIO (10-20); Calcium,Total 9.1 mg/dL (8.5-10.1); Chloride 109 mmol/L (98-107); Creatinine, Serum 0.59 mg/dL (0.55-1.02); EST Glomerular Filtration Rate 110 mL/min (>60); Est Glom Filt Rate - Afr Amer 134 mL/min (>60); Globulin 3.6 g/dL (2.2-4.2); Glucose 117 mg/dL (74-106); Potassium 4.4 mmol/L (3.5-5.1); Sodium Level 140 mmol/L (136-145)
== END | disposition home or self-care (01) ==
LOC: LAB 14:50
PROVIDERS: PCP Family Medicine; Visit Provider Family Medicine
DX: K72.90 Hepatic failure, unspecified without coma (principal)
CPT/HCPCS: 36415; 80053

== ENCOUNTER 2022-03-03 15:26 | Emergency (ER) | payer MEDICARE, SELFPAY ==
[2022-03-03 15:27] VITALS: BP 123/59; PULSE 78; RESP 16; TEMP 36.2; O2SAT 99; BMI 34.9
--- NOTE | 2022-03-03 15:45 | VDLE_ITS ---
Reason For Study: Swelling Procedure LEFT This is a venous duplex using B-mode, color GSV is normal. flow and spectral Doppler. CFV is compressible, spontaneous, phasic, Exam performed portable in ED. competent, and demonstrates normal A preliminary report was called and/or faxed augmentation. to Neftali and RN. FV is compressible, spontaneous, phasic, competent and demonstrates normal augmentation. POP V is compressible, spontaneous, phasic, competent and demonstrates normal augmentation. T/P Trunk is compressible. PTV is compressible. LT PerV is compressible. VL/Venous Duplex US, Unilateral Interpretation Summary Deep veins of the left lower extremity are patent and compressible segmentally. There is no evidence of left lower extremity deep vein thrombosis. The left great saphenous vein christian ears patent and compressible segmentally. Ordering Physician: Carlton Lindsay Referring Physician: Fritz Villatoro Performed By: Tracee Hernandez RVT
--- NOTE | 2022-03-03 15:46 | EDS_ITS ---
HPI History of Present Illness Chief Complaint: Edema Detail of Chief Complaint: Unilateral pain and swelling, left Informant: patient, spouse/S.O. and other Occured/Mechanism Mechanism/Context: Yes other see comment below Comment: Patient was seen by Dr. Ocampo this afternoon. Sent to the ER because of concern for DVT Onset/Context/Timing Onset: Days Context: Sudden Onset Timing: Continuous Quality of Pain: Dull Location: Left lower extremity Current Severity: Moderate Maximum Severity: Moderate Worsened by: Nothing makes the swelling better or worse. Pain with palpation Relieved by: Nothing Associated Symptoms Associated Symptoms: Negative for Parasthesia, Weakness or Loss of Funtion Narrative Narrative: Patient is a 56-year-old woman with history of hypertension, hyperlipidemia, liver failure due to multiple factors who was sent to the ER for evaluation of DVT. Patient's had leg swelling discoloration for several days. She denies shortness of breath or chest pain. She denies prior history of PE or DVT. She denies immobility or recent surgery. She does have history of coagulopathy due to her liver failure. She no longer drinks. She denies fever, chills night sweats. She denies ocular, visual auditory symptoms. She denies cardiac or respiratory symptoms. She denies GI symptoms. She denies orthopnea or PND. Tetanus Immunization: Unknown Prior similar symptoms: No Recent Illness/Hospitalization: Yes [facility] Medical History Hyperlipidemia Hypertension Liver failure TGA (transient global amnesia) Home Medications clonidine HCl 0.2 mg tablet 0.2 mg PO DAILY blood pressure 09/04/14 [History Last Taken 01/23/22] fluoxetine 10 mg capsule 10 mg PO PRN PRN depression 01/19/21 [History Last Taken 2 Days Ago ~01/21/22] potassium chloride 20 mEq tablet,extended release(part/cryst) (Klor-Con M) 20 meq PO TID 01/23/22 [History Last Taken 01/23/22] furosemide 40 mg tablet 40 mg PO DAILY #30 tabs 01/28/22 [Rx Last Taken Unknown] gabapentin 300 mg capsule 300 mg PO TID #90 caps 01/28/22 [Rx Last Taken Unknown] lactulose 20 gram/30 mL oral solution 20 g (30 mL) PO DAILY #3,000 mL 01/28/22 [Rx Last Taken Unknown] pantoprazole 40 mg tablet,delayed release (Protonix) 40 mg PO DAILY #30 tabs 0 01/28/22 [Rx Last Taken Unknown] pentoxifylline 400 mg tablet,extended release 400 mg PO BID #60 tabs 01/28/22 [Rx Last Taken Unknown] prednisone 20 mg tablet 60 mg PO DAILY #90 tabs 01/28/22 [Rx Last Taken Unknown] rifaximin 550 mg tablet (Xifaxan) 550 mg PO BID #60 tabs 01/28/22 [Rx Last Taken Unknown] Allergy/AdvReac Type Severity Reaction Status Date / Time No Known Allergies Allergy Verified 03/03/22 15:30 Family History Father Hypertension Mother Hypertension Surgical History Gastric bypass status for obesity History of total knee arthroplasty Previous back surgery Social History household members: spouse housing: house Smoking Status: Former smoker alcohol intake: current substance use type: does not use ROS ROS ED Constitutional Constitutional ED: Denies chills, fever(s), subjective, sweats or weight loss Eyes Eyes: Denies blurry vision, change in vision or diplopia ENT ENT ED: Denies ear pain, rhinorrhea or sore throat Cardiovascular Cardiovascular: Denies chest pain, orthopnea, palpitations, paroxysmal nocturnal dyspnea or racing heartbeat Respiratory/Chest Respiratory/Chest: Denies cough, dyspnea, dyspnea on exertion, orthopnea or paroxysmal nocturnal dyspnea Gastrointestinal Gastrointestinal: Denies abdominal pain, constipation, diarrhea, nausea or vomiting Genitourinary Genitourinary ED: Denies dysuria, hematuria or urinary frequency Musculoskeletal Musculoskeletal: Reports other Details: Left lower extremity discoloration and swelling. There is also pain. ; Denies arthralgias, back pain, myalgias or neck pain Integumentary Reports Abrasions and other Details: Abrasion noted dorsum of the left foot near the second and great toe ; Denies rash Neurologic Neurologic: Denies headache(s), paresthesias or weakness Psychiatric Psychiatric: Denies anxiety or depression Hematologic/Lymphatic Hematologic/Lymphatic: Denies easy bleeding or easy bruising EXAM Physical Exam Const Vital Signs: 03/03/22 15:27 03/03/22 16:00 Temperature 97.1 F L Temperature Source Temporal Pulse Rate 78 Respiratory Rate 16 Respiratory Pattern Normal Blood Pressure 123/59 H Blood Pressure Mean 80 Pulse Ox 99 Oxygen Delivery Method Room Air Positive well nourished, well developed and obese; Negative for cachectic, contractures or unkempt General Appearance ED: well developed and NAD; Negative for unkempt, cachectic or contractures Nutritional Appearance: obese; Negative for cachectic HEENT Reports moist mucous membranes HEENT Narrative: Head is atraumatic normocephalic. Patient has corrective lenses. Ears normal. Nares patent. There is no Anae the posterior pharynx. Eyes PERRL Eyes Narrative: Extract muscles are intact. Conjunctive appears pale. Neck full ROM and supple Neck Narrative: Trachea is midline. There is no carotid bruit. Resp normal respiratory effort, no retractions and clear to auscultation bilaterally Cardio regular rate, regular rhythm, S1 normal heart sound, S2 normal heart sound and no murmurs GI non-tender, non-distended and no masses GI Narrative: There is no hepatosplenomegaly. Palpation: soft Back/Spine no CVA tenderness Cervical Spine: Negative for cervical spine tenderness Thoracic Spine / Upper Back: Negative for thoracic spinal tenderness Lumbar Spine / Lower Back: Negative for lumbar spinal tenderness Extremity full ROM; Negative for normal to inspection Extremity Narrative: The left lower extremity is swollen in comparison to the left. There is discoloration. There is tenderness along the distribution deep venous system. General Extremety ED: Yes edema; Negative for weight-bearing difficulty General Extremity: edema; Negative for weight-bearing difficulty Neuro oriented x3, CN's II-XII intact bilaterally and moves all extremities Sensorium / Orientation: alert Motor Exam: strength 5/5 throughout Psych mental status grossly normal Appearance: Negative for unkempt Skin No no wounds Skin Narrative: Abrasion dorsum of the left foot as previously described Lesions: no lesions Rashes: no rashes Trauma: Negative for laceration or puncture MDM MDM MDM Narrative Medical decision making narrative: Patient presents with unilateral swelling discoloration concern for DVT. Since patient has history coagulopathy PT/INR was obtained. She does appear anemic. Will obtain CBC to assess H&H as well as platelet count. Competence metabolic panel assess transaminases and renal function in the event that she needs an anticoagulant. Lab Data Attestation: I reviewed the patient's lab results. Lab results narrative: CBC is unremarkable. Patient is slightly anemic 11.3 and 35.5. This is an improvement from prior. Transaminases are elevated AST is 138 ALT is 138. Total bili is 1.4 which is a marked improvement from prior. Labs: Laboratory Results - last 24 hr 03/03/22 03/03/22 03/03/22 16:25 16:25 16:25 WBC 9.9 RBC 3.25 L Hgb 11.3 L Hct 35.5 L MCV 109.2 H MCH 34.8 H MCHC 31.8 L RDW Std Deviation 63.1 H RDW Coeff of Arnold 15.7 H Plt Count 240 MPV 10.0 Immature Gran % (Auto) 0.900 Neut % (Auto) 77.9 H Lymph % (Auto) 14.2 L [place] % (Auto) 5.4 Eos % (Auto) 1.1 Baso % (Auto) 0.5 Absolute Neuts (auto) 7.7 Absolute Lymphs (auto) 1.40 Nucleated RBC % 0 PT 14.1 INR 1.1 Sodium 143 Potassium 4.1 Chloride 112 H Carbon Dioxide 28.0 Anion Gap 3 L BUN 29 H Creatinine 0.62 Estim Creat Clear Calc 99.77 Est GFR (MDRD) Af Amer 126 Est GFR (MDRD) Non-Af 104 BUN/Creatinine Ratio 46.5 H Glucose 82 Calcium 8.7 Total Bilirubin 1.40 H AST 138 H ALT 138 H Alkaline Phosphatase 181 H Total Protein 6.1 L Albumin 2.4 L Globulin 3.7 Albumin/Globulin Ratio 0.6 L Treatment and Re-Evaluation Narrative: I was informed by the archives technician that the venous duplex study was negative for DVT. Discharge Plan Triage Chief Complaint: Edema Other Complaint: Cellulitis ED Provider: Carlton Lindsay Dx/Rx/DC Orders Clinical Impression: Lymphedema, Liver disease, Elevated liver transaminase level, Total bilirubin, elevated Instructions: ED Lymphedema Prescriptions: No Action clonidine HCl 0.2 MG tablet 0.2 mg PO DAILY Label Comments: blood pressure fluoxetine 10 mg Capsule 10 mg PO PRN PRN (Reason: depression) potassium chloride [Klor-Con M20] 20 mEq tablet,ER particles/crystals 20 meq PO TID furosemide 40 mg Tablet 40 mg PO DAILY Qty: 30 0RF pentoxifylline 400 mg Tablet Extended Release 400 mg PO BID Qty: 60 1RF Xifaxan 550 mg Tablet 550 mg PO BID Qty: 60 1RF lactulose 20 gram/30 mL Solution 20 g PO DAILY Qty: 3000 0RF prednisone 20 mg tablet 60 mg PO DAILY Qty: 90 0RF pantoprazole [Protonix] 40 mg tablet,delayed release (DR/EC) 40 mg PO DAILY Qty: 30 1RF gabapentin 300 mg capsule 300 mg PO TID Qty: 90 0RF Primary Care Provider: Fritz Villatoro Referrals: Fritz Villatoro, [Primary Care Provider] - 1-2 Weeks Activity Restrictions/Additional Instructions: 1. When you are sitting elevate your feet. Definition of elevation is toes above your nose 2. Increase activity will help decrease the swelling 3. If these maneuvers do not result in decrease swelling you will need to follow-up with Dr. Ocampo, since this may represent problems with your liver. Disposition Disposition: Home, Self Care
[2022-03-03 16:42] LABS: Absolute Neutrophil Count 7.7 X10^3/uL (2.0-7.7); Basophil# 0.05 X10^3/uL; Basophil% 0.5 % (0-1); Eosinophil# 0.11 X10^3/uL; Eosinophils% 1.1 % (0-5); Hematocrit 35.5 % (37-47); Hemoglobin 11.3 g/dL (12.0-15.0); Lymphocyte % 14.2 % (19-41); Mean Corp Hgb Conc 31.8 g/dL (32-36); Mean Corpuscular Hgb 34.8 pg (27.0-32.0); Mean Corpuscular Volume 109.2 fL (81-99); Monocyte# 0.53 X10^3/uL; Monocyte% 5.4 % (0-10); NRBC Flagged by Analyzer 0 % (0-5); Neutrophil # 7.71 X10^3/uL (2.7-7.7); Neutrophil % 77.9 % (47-70); Platelet Count 240 K/mm3 (150-450); RBC Distribution Width CV 15.7 % (11.6-14.6); RBC Distribution Width SD 63.1 fl (35.1-43.9); Red Blood Count 3.25 M/mm3 (4.2-5.4); White Blood Count 9.9 K/mm3 (4.4-11.0)
[2022-03-03 17:01] LABS: ALB/GLOB Ratio 0.6 RATIO (0.9-2.4); AST(SGOT) 138 U/L (15-37); Alanine Aminotransfer ALT/SGPT 138 U/L (13-56); Albumin, Serum 2.4 g/dL (3.2-5.0); Alkaline Phosphatase 181 U/L (45-117); Anion Gap 3 (5-15); BUN 29 mg/dL (7-18); BUN/Creat Ratio 46.5 RATIO (10-20); Calcium,Total 8.7 mg/dL (8.5-10.1); Chloride 112 mmol/L (98-107); Creatinine, Serum 0.62 mg/dL (0.55-1.02); EST Glomerular Filtration Rate 104 mL/min (>60); Est Glom Filt Rate - Afr Amer 126 mL/min (>60); Estimated Creatinine Clearance 99.77 ml/min; Globulin 3.7 g/dL (2.2-4.2); Glucose 82 mg/dL (74-106); Potassium 4.1 mmol/L (3.5-5.1); Protein, Total 6.1 g/dL (6.4-8.2); Sodium Level 143 mmol/L (136-145)
[2022-03-03 17:10] LABS: International Normalized Ratio 1.1; Prothrombin Time (Protime)PT. 14.1 SECONDS (11.7-14.9)
== END 2022-03-03 17:29 | disposition home or self-care (01) ==
PROVIDERS: Emergency Provider Emergency Medicine; PCP Family Medicine; Visit Provider Emergency Medicine
DX: I89.0 Lymphedema, not elsewhere classified (principal); K72.90 Hepatic failure, unspecified without coma; I10 Essential (primary) hypertension; E66.9 Obesity, unspecified; E78.5 Hyperlipidemia, unspecified; R60.0 Localized edema; R74.01 Elevation of levels of liver transaminase levels; S90.812A Abrasion, left foot, initial encounter; Z79.52 Long term (current) use of systemic steroids; Z79.899 Other long term (current) drug therapy; Z87.891 Personal history of nicotine dependence
CPT/HCPCS: 80053; 85025; 85610; 93971; 99283; A4216

== ENCOUNTER 2022-03-07 11:31 | Inpatient (IN) | payer MEDICARE, SELFPAY ==
[2022-03-07] VITALS (9 sets, daily range): BP systolic 124–158; BP diastolic 64–80; PULSE 88–127; RESP 15–20; TEMP 36.3–37.3; O2SAT 92–98; BMI 34.9; BMI 38.5
--- NOTE | 2022-03-07 12:11 | EDS_ITS ---
HPI History of Present Illness Chief Complaint: Edema Informant: patient Onset/Context/Timing Onset: Weeks (1-2) Context: Gradual Onset Timing: Continuous Quality of Pain: Aching Location: left foot Current Severity: Moderate Maximum Severity: Moderate Worsened by: walking, palpation Relieved by: resting Associated Symptoms Associated Symptoms: Negative for Parasthesia, Weakness or Loss of Funtion Narrative Narrative: Patient sent here for reevaluation of left foot swelling and pain. She was seen here 4 days ago for the same thing out of concern for a DVT, she had an ultrasound that was negative for DVT. She states that this all started with a scratch or some type of lesion that she noticed on her left forefoot dorsum, started becoming more painful and swollen ever since along with more skin lesions that have evolved in the dorsum of her foot but nowhere else. The entire foot is painful, but mostly in the area where these wounds are, they have been seeping serous fluid but no blood or pus that she noticed. She denies any systemic symptoms such as fevers or chills, but she has developed swelling in the other leg. She admits that she has not been getting around as much as usual but she is able to ambulate. Couple months ago was admitted to the hospital for liver issues. She no longer is jaundice like she was then. GI evaluated her and thought that her elevated liver enzymes were likely due to alcohol use in addition to the fact that she was using over 4 g of Tylenol per day which she has discontinued since. [facility] Medical History Hyperlipidemia Hypertension Liver failure TGA (transient global amnesia) Home Medications clonidine HCl 0.2 mg tablet 0.2 mg PO DAILY blood pressure 09/04/14 [History Last Taken 01/23/22] fluoxetine 10 mg capsule 10 mg PO PRN PRN depression 01/19/21 [History Last Taken 2 Days Ago ~01/21/22] potassium chloride 20 mEq tablet,extended release(part/cryst) (Klor-Con M) 20 meq PO TID 01/23/22 [History Last Taken 01/23/22] furosemide 40 mg tablet 40 mg PO DAILY #30 tabs 01/28/22 [Rx Last Taken Unknown] gabapentin 300 mg capsule 300 mg PO TID #90 caps 01/28/22 [Rx Last Taken Unknown] lactulose 20 gram/30 mL oral solution 20 g (30 mL) PO DAILY #3,000 mL 01/28/22 [Rx Last Taken Unknown] pantoprazole 40 mg tablet,delayed release (Protonix) 40 mg PO DAILY #30 tabs 01/28/22 [Rx Last Taken Unknown] pentoxifylline 400 mg tablet,extended release 400 mg PO BID #60 tabs 01/28/22 [Rx Last Taken Unknown] prednisone 20 mg tablet 60 mg PO DAILY #90 tabs 01/28/22 [Rx Last Taken Unknown] rifaximin 550 mg tablet (Xifaxan) 550 mg PO BID #60 tabs 01/28/22 [Rx Last Taken Unknown] Allergy/AdvReac Type Severity Reaction Status Date / Time No Known Allergies Allergy Verified 03/07/22 11:34 Family History Father Hypertension Mother Hypertension Surgical History Gastric bypass status for obesity History of total knee arthroplasty Previous back surgery Social History household members: spouse housing: house Smoking Status: Former smoker alcohol intake: current substance use type: does not use ROS ROS ED Constitutional Constitutional ED: Denies chills or fever(s) Eyes Eyes: Denies blurry vision or diplopia ENT ENT ED: Denies rhinorrhea or sore throat Cardiovascular Cardiovascular: Reports leg edema; Denies chest pain, palpitations or racing heartbeat Respiratory/Chest Respiratory/Chest: Denies cough or dyspnea Gastrointestinal Gastrointestinal: Denies abdominal pain, nausea or vomiting Musculoskeletal Musculoskeletal: Reports extremity pain; Denies neck pain Integumentary Reports wounds; Denies Abrasions or rash Neurologic Neurologic: Denies paresthesias or weakness EXAM Physical Exam Const Vital Signs: 03/07/22 11:32 03/07/22 11:34 03/07/22 15:18 Temperature 97.3 F L 97.3 F L Temperature Source Temporal Temporal Pulse Rate 127 H 127 H 93 Respiratory Rate 20 H 20 H 15 Blood Pressure 158/76 H 158/76 H 135/72 H Blood Pressure Mean 103 103 93 Pulse Ox 92 92 98 Oxygen Delivery Method Room Air Room Air Room Air 03/07/22 12:34 03/07/22 13:34 03/07/22 14:34 Temperature 97.6 F L 97.9 F 98.1 F Temperature Source Temporal Temporal Temporal Pulse Rate 103 H 98 101 H Respiratory Rate 18 18 18 Blood Pressure 132/68 H 124/64 H 137/80 H Blood Pressure Mean 89 84 99 Pulse Ox 96 94 Oxygen Delivery Method Room Air Room Air 03/07/22 15:34 Temperature 98.0 F Temperature Source Temporal Pulse Rate 93 Respiratory Rate 20 H Blood Pressure 135/72 H Blood Pressure Mean 93 Pulse Ox 96 Oxygen Delivery Method Room Air Positive well nourished, well developed and obese General Appearance ED: well developed and NAD Nutritional Appearance: obese Neck full ROM and supple Resp normal respiratory effort Effort and Inspection: able to speak in complete sentences GI non-distended Back/Spine normal ROM and normal to inspection Extremity Extremity Narrative: There is edema in both lower extremities, much more in the left foot and distal half of the lower leg. There are multiple wound wounds with scabs on them on the dorsum of the left foot, some are 2 or 3 cm across, some are very small/punctate, some of them appear to be superficially ulcerating. There is no fluctuance or abscess, there is some minor serous drainage from the largest one that is closer to the first and second MTPJ's, there is good short arc range of motion of all toes and ankle without significant pain although the wounds are tender to palpate. There is no lymphangitis. I see no other lesions that look like these. Neuro oriented x3, no focal motor deficits and no sensory deficits noted Sensorium / Orientation: alert Psych mental status grossly normal and thought process normal Skin Skin Narrative: left foot wounds. see above. Rashes: no rashes MDM MDM MDM Narrative Medical decision making narrative: The left foot area has the appearance of a bullous impetigo but it is fairly localized. She is tachycardic but appears well and not septic clinically. Even if this is not a bullous impetigo, I am suspicious that this is infection. She has not been on any antibiotics yet. I am giving her a dose of vancomycin and repeating her liver enzymes which were elevated the last time she was here, her INR was normal so I am not repeating that. Labs are concerning, she has a CRP that extremely elevated and ESR that is also normal along with a leukocytosis. She presented with tachycardia for no other significant reason, my concern is that she could be early sepsis, her lactate is also elevated. The foot appears to be very swollen and if it is infected it is severe. I obtained an x-ray that shows no definite bony abnormalities, I am concerned enough about this lady's foot that I had podiatry consult Dr. Otero, and he agrees that she should be admitted. Lab Data Attestation: I reviewed the patient's lab results. Labs: Laboratory Results - last 24 hr 03/07/22 03/07/22 03/07/22 12:15 12:15 12:15 WBC 13.5 H RBC 3.50 L Hgb 12.0 Hct 36.1 L MCV 103.1 H D MCH 34.3 H MCHC 33.2 RDW Std Deviation 60.6 H RDW Coeff of Arnold 15.9 H Plt Count 323 MPV 10.0 Immature Gran % (Auto) 0.700 Neut % (Auto) 79.1 H Lymph % (Auto) 13.1 L [place] % (Auto) 5.5 Eos % (Auto) 1.0 Baso % (Auto) 0.6 Absolute Neuts (auto) 10.7 H Absolute Lymphs (auto) 1.77 Nucleated RBC % 0 ESR Sodium 141 Potassium 3.5 Chloride 109 H Carbon Dioxide 25.0 Anion Gap 7 BUN 15 Creatinine 0.62 Estim Creat Clear Calc 99.77 Est GFR (MDRD) Af Amer 126 Est GFR (MDRD) Non-Af 104 BUN/Creatinine Ratio 24.0 H Glucose 98 Lactic Acid 2.1 H* Calcium 8.4 L Total Bilirubin 1.70 H AST 104 H ALT 89 H Alkaline Phosphatase 219 H C-React Prot Ext Range Total Protein 6.6 Albumin 2.5 L Globulin 4.1 Albumin/Globulin Ratio 0.6 L 03/07/22 03/07/22 12:15 12:15 WBC RBC Hgb Hct MCV MCH MCHC RDW Std Deviation RDW Coeff of Arnold Plt Count MPV Immature Gran % (Auto) Neut % (Auto) Lymph % (Auto) [place] % (Auto) Eos % (Auto) Baso % (Auto) Absolute Neuts (auto) Absolute Lymphs (auto) Nucleated RBC % ESR 48 H Sodium Potassium Chloride Carbon Dioxide Anion Gap BUN Creatinine Estim Creat Clear Calc Est GFR (MDRD) Af Amer Est GFR (MDRD) Non-Af BUN/Creatinine Ratio Glucose Lactic Acid Calcium Total Bilirubin AST ALT Alkaline Phosphatase C-React Prot Ext Range 140.00 H Total Protein Albumin Globulin Albumin/Globulin Ratio Radiography Diagnostic Testing: Clinical Impression(s) from Imaging Studies Foot X-Ray 03/07/22 13:04 IMPRESSION: Extensive soft tissue swelling, no underlying osseous abnormality is seen would recommend clinical correlation and if clinically indication further evaluation to rule out bone involvement. Electronically Signed: Kale Odonnell MD at 13:17 EDT Reading Location ID and State: [facility] / [place] Tel , Service support , Discharge Plan Dx/Rx/DC Orders Clinical Impression: Cellulitis of foot, left Disposition Disposition: Acute Care Hospital [facility]
[2022-03-07 12:50] LABS: Absolute Lymphocyte Count 1.77 X10^3/uL (0.83-4.51); Absolute Neutrophil Count 10.7 X10^3/uL (2.0-7.7); Basophil# 0.08 X10^3/uL; Basophil% 0.6 % (0-1); Eosinophil# 0.14 X10^3/uL; Hematocrit 36.1 % (37-47); Lymphocyte # 1.77 X10^3/ul (0.83-4.51); Lymphocyte % 13.1 % (19-41); Mean Corp Hgb Conc 33.2 g/dL (32-36); Mean Corpuscular Hgb 34.3 pg (27.0-32.0); Mean Corpuscular Volume 103.1 fL (81-99); Monocyte# 0.74 X10^3/uL; Monocyte% 5.5 % (0-10); NRBC Flagged by Analyzer 0 % (0-5); Neutrophil # 10.72 X10^3/uL (2.7-7.7); Neutrophil % 79.1 % (47-70); Platelet Count 323 K/mm3 (150-450); RBC Distribution Width CV 15.9 % (11.6-14.6); RBC Distribution Width SD 60.6 fl (35.1-43.9); White Blood Count 13.5 K/mm3 (4.4-11.0)
--- NOTE | 2022-03-07 13:04 | RAD_ITS ---
INDICATION: pain EXAMINATION/TECHNIQUE: X-RAY - LEFT XR Foot Min 3 Views 3 VIEWS COMPARISON: None. FINDINGS: No evidence of cortical irregularity or lucency to suggest a fracture, no evidence of lytic or sclerotic bone lesion is seen. No evidence of cortical disruption, no evidence of lucencies within the bones, no evidence of involucrum or cloaca. No evidence of midfoot dislocation is seen. Unremarkable bone alignment is seen. Inferior calcaneal spur is visualized. Degenerative bone changes seen. Extensive soft tissue swelling is visualized along the dorsal aspect of the forefoot, no radiopaque density visualized within the soft tissues. RAD/Foot min 3 Views IMPRESSION: Extensive soft tissue swelling, no underlying osseous abnormality is seen would recommend clinical correlation and if clinically indication further evaluation to rule out bone involvement. Electronically Signed: Kale Odonnell MD at 13:17 EDT ,
[2022-03-07 13:09] LABS: ALB/GLOB Ratio 0.6 RATIO (0.9-2.4); AST(SGOT) 104 U/L (15-37); Alanine Aminotransfer ALT/SGPT 89 U/L (13-56); Albumin, Serum 2.5 g/dL (3.2-5.0); Alkaline Phosphatase 219 U/L (45-117); Anion Gap 7 (5-15); BUN 15 mg/dL (7-18); Calcium,Total 8.4 mg/dL (8.5-10.1); Chloride 109 mmol/L (98-107); Creatinine, Serum 0.62 mg/dL (0.55-1.02); EST Glomerular Filtration Rate 104 mL/min (>60); Est Glom Filt Rate - Afr Amer 126 mL/min (>60); Estimated Creatinine Clearance 99.77 ml/min; Globulin 4.1 g/dL (2.2-4.2); Glucose 98 mg/dL (74-106); Lactic Acid 2.1 mmol/L (0.4-1.9); Potassium 3.5 mmol/L (3.5-5.1); Protein, Total 6.6 g/dL (6.4-8.2); Sodium Level 141 mmol/L (136-145)
--- NOTE | 2022-03-07 13:11 | ED.RN ---
LACTIC OF 2.1 REPORTED TO . VERBALIZES UNDERSTANDING
[2022-03-07 13:58] LABS: Erythrocyte Sedimentation Rate 48 mm/hr (0-30)
[2022-03-07 16:38] LABS: Reflex Lactate? Y
[2022-03-07 17:51] LABS: Lactic Acid 2.3 mmol/L (0.4-1.9)
--- NOTE | 2022-03-07 17:54 | NURSING ---
Rochelle LEUNG LEFT FOOT CELLULITIS
--- NOTE | 2022-03-07 18:00 | HP.PCM_ITS ---
HPI - General General Date of Admission: 03/07/22 Chief Complaint: Left foot wounds and infection HPI Narrative NU BASURTO, is a 56 F who presents to the [facility] ER with wounds to the left foot, with redness and swelling which she relates is worsening. She relates swelling started 1-2 weeks ago - she was in ER on 03/03/2022 - negative for DVT. She has pain to the foot. Xrays were obtained, no gas or clear evidence of osteomyelitis. Patient's WBC is elevated at 13.5, lactic acid elevated at 2.1. Patient is afebrile. She is here with her . [facility] Medical History Hyperlipidemia Hypertension Liver failure TGA (transient global amnesia) Home Medications clonidine HCl 0.2 mg tablet 0.2 mg PO DAILY blood pressure 09/04/14 [History Last Taken 01/23/22] fluoxetine 10 mg capsule 10 mg PO PRN PRN depression 01/19/21 [History Last Taken 2 Days Ago ~01/21/22] potassium chloride 20 mEq tablet,extended release(part/cryst) (Klor-Con M) 20 meq PO TID 01/23/22 [History Last Taken 01/23/22] furosemide 40 mg tablet 40 mg PO DAILY #30 tabs 01/28/22 [Rx Last Taken Unknown] gabapentin 300 mg capsule 300 mg PO TID #90 caps 01/28/22 [Rx Last Taken Unknown] lactulose 20 gram/30 mL oral solution 20 g (30 mL) PO DAILY #3,000 mL 01/28/22 [Rx Last Taken Unknown] pantoprazole 40 mg tablet,delayed release (Protonix) 40 mg PO DAILY #30 tabs 01/28/22 [Rx Last Taken Unknown] pentoxifylline 400 mg tablet,extended release 400 mg PO BID #60 tabs 01/28/22 [Rx Last Taken Unknown] prednisone 20 mg tablet 60 mg PO DAILY #90 tabs 01/28/22 [Rx Last Taken Unknown] rifaximin 550 mg tablet (Xifaxan) 550 mg PO BID #60 tabs 01/28/22 [Rx Last Taken Unknown] Allergy/AdvReac Type Severity Reaction Status Date / Time No Known Allergies Allergy Verified 03/07/22 11:34 Family History Father Hypertension Mother Hypertension Surgical History Gastric bypass status for obesity History of total knee arthroplasty Previous back surgery Social History household members: spouse housing: house Smoking Status: Former smoker alcohol intake: current substance use type: does not use ROS ROS Narrative No complaints of fever, chills, nausea or vomiting. Vital Signs Vital Signs Vital Signs: 03/07/22 11:32 03/07/22 11:34 03/07/22 15:18 Temperature 97.3 F L 97.3 F L Temperature Source Temporal Temporal Pulse Rate 127 H 127 H 93 Respiratory Rate 20 H 20 H 15 Blood Pressure 158/76 H 158/76 H 135/72 H Blood Pressure Mean 103 103 93 Pulse Ox 92 92 98 Oxygen Delivery Method Room Air Room Air Room Air 03/07/22 12:34 03/07/22 13:34 03/07/22 14:34 Temperature 97.6 F L 97.9 F 98.1 F Temperature Source Temporal Temporal Temporal Pulse Rate 103 H 98 101 H Respiratory Rate 18 18 18 Blood Pressure 132/68 H 124/64 H 137/80 H Blood Pressure Mean 89 84 99 Pulse Ox 96 94 Oxygen Delivery Method Room Air Room Air 03/07/22 15:34 Temperature 98.0 F Temperature Source Temporal Pulse Rate 93 Respiratory Rate 20 H Blood Pressure 135/72 H Blood Pressure Mean 93 Pulse Ox 96 Oxygen Delivery Method Room Air Weight Weight: 104.326 kg Body Mass Index (BMI) 34.9 Physical Exam Const alert, oriented x3 and no apparent distress Extremity Extremity Narrative: Left foot with multiple wounds to the dorsal foot and lateral ankle down to subcutaneous tissue, there is serous drainage, there is some granular tissue and fibrotic tissue, there is significant edema to the foot extending to ankle and leg, there is localized erythema around the wounds, there is no visible abscess, no crepitus, no fluctuance, no probe to bone. CFT < 2 seconds to the toes and DP pulse is intact left foot, no evidence of acute ischemia. There is POP to the foot, left - no gross instability to the foot, sensation is intact to the foot and ankle - left. Muscle strength intact to the left foot/ankle. Results Lab / Micro Data Result Diagrams: 03/07/22 12:15 03/07/22 12:15 Labs: Laboratory Results - last 24 hr 03/07/22 12:15: WBC 13.5 H, RBC 3.50 L, Hgb 12.0, Hct 36.1 L, MCV 103.1 H D, MCH 34.3 H, MCHC 33.2, RDW Std Deviation 60.6 H, RDW Coeff of Arnold 15.9 H, Plt Count 323, MPV 10.0, Immature Gran % (Auto) 0.700, Neut % (Auto) 79.1 H, Lymph % (Auto) 13.1 L, [place] % (Auto) 5.5, Eos % (Auto) 1.0, Baso % (Auto) 0.6, Absolute Neuts (auto) 10.7 H, Absolute Lymphs (auto) 1.77, Nucleated RBC % 0 03/07/22 12:15: Sodium 141, Potassium 3.5, Chloride 109 H, Carbon Dioxide 25.0, Anion Gap 7, BUN 15, Creatinine 0.62, Estim Creat Clear Calc 99.77, Est GFR (MDRD) Af Amer 126, Est GFR (MDRD) Non-Af 104, BUN/Creatinine Ratio 24.0 H, Glucose 98, Calcium 8.4 L, Total Bilirubin 1.70 H, AST 104 H, ALT 89 H, Alkaline Phosphatase 219 H, Total Protein 6.6, Albumin 2.5 L, Globulin 4.1, Albumin/Globulin Ratio 0.6 L 03/07/22 12:15: Lactic Acid 2.1 H* 03/07/22 12:15: ESR 48 H 03/07/22 12:15: C-React Prot Ext Range 140.00 H 03/07/22 16:50: Lactic Acid 2.3 H* Radiology Impression Foot X-Ray 03/07/22 13:04 IMPRESSION: Extensive soft tissue swelling, no underlying osseous abnormality is seen would recommend clinical correlation and if clinically indication further evaluation to rule out bone involvement. Electronically Signed: Kale Odonnell MD at 13:17 EDT , Assessment & Plan Assessment/Plan (1) Cellulitis of left lower limb: (2) Pain in left foot: (3) Non-pressure chronic ulcer of other part of right foot with fat layer exposed: PLAN: Plan Evaluation performed. Reviewed diagnostic data. WBC elevated at 13.5 (was 9.9 on 03/03/2022). Lactic acid 2.1. There is cellulitis with wounds left foot. Patient will be admitted for IV antibotics and further workup. Left foot xrays reviewed - no fractures, no gas noted. MRI of left foot was ordered for further evaluation. A culture was obtained from wounds left foot - sent to microbiology. Patient started on Vanc/Zosyn. Wound care left foot/leg - betadine soln to wounds, gauze, kerlix and mark for compression therapy. Keep foot elevated. I believe the edema is contributing to wounds and cellulitis. DVT Prophylaxis - Lovenox 40mg subcutaneous daily. Patient was admitted with medicine team on consult - discussed with medicine team - appreciate assistance.
--- NOTE | 2022-03-07 18:45 | MRI_ITS ---
EXAM: MR LEFT LOWER EXTREMITY WITHOUT INTRAVENOUS CONTRAST, FOOT CLINICAL INDICATION: abscess/osteomyelitis swelling TECHNIQUE: Multiplanar and multisequence MR images of the left foot without intravenous contrast. This report was created using [employer] report generation technology. COMPARISON: None. FINDINGS: LIGAMENTS: MEDIAL COLLATERAL: Unremarkable. Intact. LATERAL COLLATERAL: Unremarkable. Intact. LISFRANC: Unremarkable. Intact. TENDONS: FLEXOR: Unremarkable. Intact. EXTENSOR: Unremarkable. Intact. PERONEAL: Unremarkable. Intact. TIBIALIS ANTERIOR: Unremarkable. Intact. TIBIALIS POSTERIOR: Unremarkable. Intact. MUSCLES: Unremarkable. No edema or myositis. FLUID: Unremarkable. No joint effusion. PLANTAR FASCIA: Unremarkable. Intact. BONES/JOINTS: Mild degenerative findings of the first metatarsal phalangeal joint. There is a calcaneal spur. Normal forefoot alignment. No fracture. No bone marrow edema. No joint effusion. OTHER SOFT TISSUES: Diffuse soft tissue swelling along the dorsum of the foot. MRI/Lower Ext/No Jt/w/o IMPRESSION: 1. Mild degenerative findings of the first metatarsal phalangeal joint. 2. Diffuse soft tissue swelling along the dorsum of the foot. Electronically Signed: Adán Hayes MD at 19:58 EDT ,
--- NOTE | 2022-03-07 18:55 | PCM.CONS.GEN ---
Assessment & Plan Assessment/Plan (1) Cellulitis of left lower limb: PLAN: Patient has an elevated CRP as well as ESR plus or leukocytosis is concerning for not just cellulitis but possibly deeper infection. Patient has had an MRI ordered to by podiatry I agree with the antibiotics with piperacillin and vancomycin Follow-up cultures (2) Lactic acidosis: PLAN: Unclear significance Patient is not clinically septic at this time Would not pursue this any further unless patient's condition changes for the worse (3) Hepatitis: PLAN: Per history. Patient has a history of heavy alcohol consumption as well as Tylenol use. Looking back at her LFTs appear to be improving. No additional work-up while patient is in the hospital but patient may benefit from seeing mold insert changer as outpatient. PLAN: Plan VTE prophylaxis: Agree with the enoxaparin. COVID-19 vaccination status: Patient has been vaccinated though not boosted. Patient is open to getting the booster. Would hold off on giving the booster until we know for sure whether or not she does have COVID. If she does not have COVID then we can give her the booster closer to when she is being discharged. Discussed with Dr. Duron. Thank you for the consult. The hospitalist service will follow along during her hospitalization. HPI Consult Data Date of Consult: 03/07/22 HPI Narrative Reason for Consultation: Medical management HPI Narrative: NU BASURTO, is a 56 F who presents with left lower extremity remedy particular foot and ankle swelling. Has been going off and on for about weeks but over the past few days is just steadily gotten worse. Have been seen previously and had an ultrasound that was negative for DVT. This apparently began with a scratch dorsum of her left foot became more painful and swollen. Patient presented to the emergency room and had an elevated white count of 13.3 and lactic acid of 2.1 that went up to 2.3. Other than her foot her only other main complaint was just a dry cough that she has been experiencing. Patient's is also sick to from that. She denies any sore throat, loss of taste or smell nor any shortness of breath. COUNTS INCLUDE 234 BEDS AT THE [facility] Medical History (Updated 03/07/22 @ 19:[address] Javier Coleman, ) Hepatitis Hyperlipidemia Hypertension TGA (transient global amnesia) Home Medications clonidine HCl 0.2 mg tablet 0.2 mg PO DAILY blood pressure 09/04/14 [History Last Taken 01/23/22] fluoxetine 10 mg capsule 10 mg PO PRN PRN depression 01/19/21 [History Last Taken 2 Days Ago ~01/21/22] potassium chloride 20 mEq tablet,extended release(part/cryst) (Klor-Con M) 20 meq PO TID 01/23/22 [History Last Taken 01/23/22] furosemide 40 mg tablet 40 mg PO DAILY #30 tabs 01/28/22 [Rx Last Taken Unknown] gabapentin 300 mg capsule 300 mg PO TID #90 caps 01/28/22 [Rx Last Taken Unknown] lactulose 20 gram/30 mL oral solution 20 g (30 mL) PO DAILY #3,000 mL 01/28/22 [Rx Last Taken Unknown] pantoprazole 40 mg tablet,delayed release (Protonix) 40 mg PO DAILY #30 tabs 01/28/22 [Rx Last Taken Unknown] pentoxifylline 400 mg tablet,extended release 400 mg PO BID #60 tabs 01/28/22 [Rx Last Taken Unknown] prednisone 20 mg tablet 60 mg PO DAILY #90 tabs 01/28/22 [Rx Last Taken Unknown] rifaximin 550 mg tablet (Xifaxan) 550 mg PO BID #60 tabs 01/28/22 [Rx Last Taken Unknown] Allergy/AdvReac Type Severity Reaction Status Date / Time No Known Allergies Allergy Verified 03/07/22 11:34 Family History Father Hypertension Mother Hypertension Surgical History Gastric bypass status for obesity History of total knee arthroplasty Previous back surgery Social History household members: spouse housing: house Smoking Status: Former smoker alcohol intake: current substance use type: does not use ROS ROS Narrative Patient denies any bleeding. Is having a dry cough its been going on for the past few days and patient's is also sick. Patient has been vaccinated for COVID-19 though has not received the booster yet. All review of systems were negative except as mentioned above in the history of present illness and the other review of systems. Physical Exam Const alert and no apparent distress HEENT normocephalic, head/scalp atraumatic, hearing grossly normal bilaterally and moist oral mucous membranes Eyes PERRL Resp normal respiratory effort, no retractions, no use of accessory muscles and clear to auscultation bilaterally Cardio regular rate, regular rhythm, S1 normal heart sound and S2 normal heart sound GI normal to inspection, nondistended, normoactive bowel sounds, soft to palpation and non-tender Extremity Extremity Narrative: Left lower extremity wrapped, did not remove. Neuro oriented x3 Lab / Micro Data Result Diagrams: 03/07/22 12:15 03/07/22 12:15 Labs: Laboratory Results - last 24 hr 03/07/22 12:15: WBC 13.5 H, RBC 3.50 L, Hgb 12.0, Hct 36.1 L, MCV 103.1 H D, MCH 34.3 H, MCHC 33.2, RDW Std Deviation 60.6 H, RDW Coeff of Arnold 15.9 H, Plt Count 323, MPV 10.0, Immature Gran % (Auto) 0.700, Neut % (Auto) 79.1 H, Lymph % (Auto) 13.1 L, [place] % (Auto) 5.5, Eos % (Auto) 1.0, Baso % (Auto) 0.6, Absolute Neuts (auto) 10.7 H, Absolute Lymphs (auto) 1.77, Nucleated RBC % 0 03/07/22 12:15: Sodium 141, Potassium 3.5, Chloride 109 H, Carbon Dioxide 25.0, Anion Gap 7, BUN 15, Creatinine 0.62, Estim Creat Clear Calc 99.77, Est GFR (MDRD) Af Amer 126, Est GFR (MDRD) Non-Af 104, BUN/Creatinine Ratio 24.0 H, Glucose 98, Calcium 8.4 L, Total Bilirubin 1.70 H, AST 104 H, ALT 89 H, Alkaline Phosphatase 219 H, Total Protein 6.6, Albumin 2.5 L, Globulin 4.1, Albumin/Globulin Ratio 0.6 L 03/07/22 12:15: Lactic Acid 2.1 H* 03/07/22 12:15: ESR 48 H 03/07/22 12:15: C-React Prot Ext Range 140.00 H 03/07/22 16:50: Lactic Acid 2.3 H* Radiology Impression Foot X-Ray 03/07/22 13:04 IMPRESSION: Extensive soft tissue swelling, no underlying osseous abnormality is seen would recommend clinical correlation and if clinically indication further evaluation to rule out bone involvement. Electronically Signed: Kale Odonnell MD at 13:17 EDT , Charges/Coding Visit Charges Inpatient E&M: 66656 Init Hosp L2
[2022-03-07 19:10] LABS: M R Staph aureus DNA By PCR Negative (Negative); Probe Check PASS; Specimen Processing Control PASS; Staph aureus DNA By PCR POSITIVE (Negative)
--- NOTE | 2022-03-07 19:12 | PCM.RX.CS ---
Consult Pharmacy has been consulted to manage selected antiobiotic: Vancomycin Type of Consult: New start Suspected Infection: Skin/Soft tissue Prior Doses of Antibiotics Received/Current Regimen: Received 1500mg iv x 1 in ED on 03.07.22. Labs: Sodium 141 mmol/L (136-145) 03/07/22 12:15 Potassium 3.5 mmol/L (3.5-5.1) 03/07/22 12:15 Chloride 109 mmol/L (98-107) H 03/07/22 12:15 Carbon Dioxide 25.0 mmol/L (21.0-32.0) 03/07/22 12:15 Anion Gap 7 (5-15) 03/07/22 12:15 BUN 15 mg/dL (7-18) 03/07/22 12:15 Creatinine 0.62 mg/dL (0.55-1.02) 03/07/22 12:15 Est GFR (MDRD) Af Amer 126 mL/min (>60) 03/07/22 12:15 Est GFR (MDRD) Non-Af 104 mL/min (>60) 03/07/22 12:15 BUN/Creatinine Ratio 24.0 RATIO (10-20) H 03/07/22 12:15 Glucose 98 mg/dL (74-106) 03/07/22 12:15 Weight used for dosin.3 kg Estimated Creatinine Clearance: >120ml/min Goal Trough: 10-15 mcg/mL Pharmacy Plan for Drug Dosing: Renal function reviewed. SCrCl calculated to be >120ml/min from adjusted body weight of 79.9kg. Dosing to start as 1750mg iv q12h beginning 12hrs after loading dose in ED. Trough level ordered for 03.09.22 before 4th cumulative dose. Pharmacy Service will continue to monitor and adjust dosing as required. Follow-Up Labs: Trough Vancomycin - 8.7.22@0030 before 0100 dose
[2022-03-08] VITALS (7 sets, daily range): BP systolic 123–141; BP diastolic 70–82; PULSE 88–104; RESP 18–20; TEMP 36.6–37.1; O2SAT 88–94
[2022-03-08] MEDS: 0.9% Saline Lock 10 ML Syringe IV ×6 (06:10→23:08)
--- NOTE | 2022-03-08 07:01 | PCM.PN.HOSP ---
Subjective Subjective Still with swelling in LLE. Objective Data Objective Data Vital Signs: Vital Signs Temp Pulse Resp BP Pulse Ox O2 Del Method 36.8 C 88 20 H 124/71 H 92 Room Air 03/08/22 06:03 03/08/22 06:03 03/08/22 06:03 03/08/22 06:03 03/08/22 06:03 03/08/22 06:03 Oxygen Delivery Method Room Air Weight: 115.2 kg Body Mass Index (BMI) 38.5 Intake & Output: Intake and Output for Last 24 Hours 03/06/22 03/07/22 03/08/22 23:59 23:59 23:59 Intake Total 580 / 580 535 / 535 Balance 580 / 580 535 / 535 Lab / Micro Data Result Diagrams: 03/07/22 12:15 03/07/22 12:15 Labs: Laboratory Results - last 24 hr 03/07/22 12:15: WBC 13.5 H, RBC 3.50 L, Hgb 12.0, Hct 36.1 L, MCV 103.1 H D, MCH 34.3 H, MCHC 33.2, RDW Std Deviation 60.6 H, RDW Coeff of Arnold 15.9 H, Plt Count 323, MPV 10.0, Immature Gran % (Auto) 0.700, Neut % (Auto) 79.1 H, Lymph % (Auto) 13.1 L, [place] % (Auto) 5.5, Eos % (Auto) 1.0, Baso % (Auto) 0.6, Absolute Neuts (auto) 10.7 H, Absolute Lymphs (auto) 1.77, Nucleated RBC % 0 03/07/22 12:15: Sodium 141, Potassium 3.5, Chloride 109 H, Carbon Dioxide 25.0, Anion Gap 7, BUN 15, Creatinine 0.62, Estim Creat Clear Calc 99.77, Est GFR (MDRD) Af Amer 126, Est GFR (MDRD) Non-Af 104, BUN/Creatinine Ratio 24.0 H, Glucose 98, Calcium 8.4 L, Total Bilirubin 1.70 H, AST 104 H, ALT 89 H, Alkaline Phosphatase 219 H, Total Protein 6.6, Albumin 2.5 L, Globulin 4.1, Albumin/Globulin Ratio 0.6 L 03/07/22 12:15: Lactic Acid 2.1 H* 03/07/22 12:15: ESR 48 H 03/07/22 12:15: C-React Prot Ext Range 140.00 H 03/07/22 16:50: Lactic Acid 2.3 H* 03/07/22 17:39: S.aureus Protein A PCR POSITIVE H, MRSA (PCR) Negative Micro: Microbiology 03/07/22 21:05 Nasal Secretion SARS-CoV-2 Antigen (Rapid) - Final Radiography Diagnostic Testing: Radiology Impression Foot X-Ray 03/07/22 13:04 IMPRESSION: Extensive soft tissue swelling, no underlying osseous abnormality is seen would recommend clinical correlation and if clinically indication further evaluation to rule out bone involvement. Electronically Signed: Kale Odonnell MD at 13:17 EDT , Lower Extremity MRI 03/07/22 18:45 IMPRESSION: 1. Mild degenerative findings of the first metatarsal phalangeal joint. 2. Diffuse soft tissue swelling along the dorsum of the foot. Electronically Signed: Adán Hayes MD at 19:58 EDT , Physical Exam Const alert and no apparent distress Resp normal respiratory effort, no retractions, no use of accessory muscles and clear to auscultation bilaterally Cardio regular rate, regular rhythm, S1 normal heart sound and S2 normal heart sound GI normal to inspection, nondistended, normoactive bowel sounds, soft to palpation, non-tender, non-distended and hepatosplenomegaly Assessment & Plan Assessment/Plan (1) Cellulitis of left lower limb: PLAN: Patient has an elevated CRP as well as ESR plus or leukocytosis is concerning for not just cellulitis but possibly deeper infection. I agree with the antibiotics with piperacillin and vancomycin Follow-up cultures, thus far blood cultures and wound culture are pending MRI left lower extremity shows mild degenerative findings in the first MTP. Diffuse soft tissue swelling along the dorsum of the foot. (2) Lactic acidosis: PLAN: Unclear significance Patient is not clinically septic at this time Would not pursue this any further unless patient's condition changes for the worse (3) Hepatitis: PLAN: Per history. Patient has a history of heavy alcohol consumption as well as Tylenol use. Looking back at her LFTs appear to be improving. No additional work-up while patient is in the hospital but patient may benefit from seeing registered nurse surgical services as outpatient. PLAN: Plan VTE prophylaxis: Agree with the enoxaparin. COVID-19 vaccination status: Patient has been vaccinated though not boosted. Patient is open to getting the booster. COVID-19 negative. Will order. Charges/Coding Visit Charges Inpatient E&M: 43265 Subs Hosp L2
[2022-03-08] MEDS: oxyCODONE 5 MG Tablet PO ×2 (08:13→14:37)
--- NOTE | 2022-03-08 09:55 | PN_ITS ---
Subjective Subjective Patient was seen this morning for follow up on left foot infection. She had MRI. She is resting comfortably in bed and ate breakfast this morning. She has no complaints of fever, chills, nausea or vomiting at this time. Objective Data Objective Data Vital Signs: Vital Signs Temp Pulse Resp BP Pulse Ox O2 Del Method 98.2 F 88 20 H 124/71 H 92 Room Air 03/08/22 06:03 03/08/22 06:03 03/08/22 06:03 03/08/22 06:03 03/08/22 06:03 03/08/22 06:03 Oxygen Delivery Method Room Air Weight: 115.2 kg Body Mass Index (BMI) 38.5 Intake & Output: Intake and Output for Last 24 Hours 03/06/22 03/07/22 03/08/22 23:59 23:59 23:59 Intake Total 580 / 580 535 / 535 Balance 580 / 580 535 / 535 Lab / Micro Data Result Diagrams: 03/07/22 12:15 03/07/22 12:15 Labs: Laboratory Results - last 24 hr 03/07/22 12:15: WBC 13.5 H, RBC 3.50 L, Hgb 12.0, Hct 36.1 L, MCV 103.1 H D, MCH 34.3 H, MCHC 33.2, RDW Std Deviation 60.6 H, RDW Coeff of Arnold 15.9 H, Plt Count 323, MPV 10.0, Immature Gran % (Auto) 0.700, Neut % (Auto) 79.1 H, Lymph % ( Auto) 13.1 L, [place] % (Auto) 5.5, Eos % (Auto) 1.0, Baso % (Auto) 0.6, Absolute Neuts (auto) 10.7 H, Absolute Lymphs (auto) 1.77, Nucleated RBC % 0 03/07/22 12:15: Sodium 141, Potassium 3.5, Chloride 109 H, Carbon Dioxide 25.0, Anion Gap 7, BUN 15, Creatinine 0.62, Estim Creat Clear Calc 99.77, Est GFR (MDRD) Af Amer 126, Est GFR (MDRD) Non-Af 104, BUN/Creatinine Ratio 24.0 H, Glucose 98, Calcium 8.4 L, Total Bilirubin 1.70 H, AST 104 H, ALT 89 H, Alkaline Phosphatase 219 H, Total Protein 6.6, Albumin 2.5 L, Globulin 4.1, Albumin/Globulin Ratio 0.6 L 03/07/22 12:15: Lactic Acid 2.1 H* 03/07/22 12:15: ESR 48 H 03/07/22 12:15: C-React Prot Ext Range 140.00 H 03/07/22 16:50: Lactic Acid 2.3 H* 03/07/22 17:39: S.aureus Protein A PCR POSITIVE H, MRSA (PCR) Negative Micro: Microbiology 03/07/22 21:05 Nasal Secretion SARS-CoV-2 Antigen (Rapid) - Final Radiography Diagnostic Testing: Radiology Impression Foot X-Ray 03/07/22 13:04 IMPRESSION: Extensive soft tissue swelling, no underlying osseous abnormality is seen would recommend clinical correlation and if clinically indication further evaluation to rule out bone involvement. Electronically Signed: Kale Odonnell MD at 13:17 EDT , Lower Extremity MRI 03/07/22 18:45 IMPRESSION: 1. Mild degenerative findings of the first metatarsal phalangeal joint. 2. Diffuse soft tissue swelling along the dorsum of the foot. Electronically Signed: Adán Hayes MD at 19:58 EDT , Physical Exam Const alert, oriented x3 and no apparent distress Extremity Extremity Narrative: Left foot with multiple wounds and some excoriations to the dorsal foot and lateral ankle down to subcutaneous tissue - which are noted to be better than yesterday, there is no drainage today, there is some granular tissue and fibrotic tissue, there is edema to the foot extending to ankle and leg which is also improved, there is localized erythema around the wounds which is some improved as well, there is no visible abscess, no crepitus, no fluctuance, no probe to bone. CFT < 2 seconds to the toes and DP pulse is intact left foot, no evidence of acute ischemia. There is still noted POP to the dorsal foot, left - no gross instability to the foot, sensation is intact to the foot and ankle - left. Muscle strength intact to the left foot/ankle. Assessment & Plan Assessment/Plan (1) Cellulitis of left lower limb: (2) Pain in left foot: (3) Non-pressure chronic ulcer of other part of right foot with fat layer exposed: PLAN: Plan Re-evaluation performed. Reviewed diagnostic data. WBC elevated was at 13.5 yesterday (was 9.9 on 03/03/2022). Lactic acid 2.1 yesterday. There is cellulitis with wounds left foot - there has been some improvement compared to yesterday evening. Left foot xrays reviewed - no fractures, no gas noted. MRI of left foot was ordered for further evaluation - this was reviewed and there is no deep abscess, and no evidence of osteomyelitis. A culture was obtained from wounds left foot - sent to microbiology - results pending. Patient on Vanc/Zosyn. Wound care left foot/leg - betadine soln to wounds, gauze, kerlix and mark for compression therapy. Keep foot elevated. I believe the edema is contributing to wounds and cellulitis - there is noted to be some improvement in the edema this morning. Noninvasive lower extremity arterial study was ordered for further evaluation of arterial flow to feet. No evidence of acute ischemia at this time. DVT Prophylaxis - Lovenox 40mg subcutaneous daily. Medicine team on consult - appreciate assistance.
--- NOTE | 2022-03-08 10:21 | ART_ITS ---
Reason For Study: Ulcer Procedure A bilateral lower extremity continuous wave Doppler with analog waveform analysis,segmental pressures,and ankle brachial indexes without exercise. Left Segmental Pressures Left brachial= 153mmHg. Left posterior tibial artery = 166mmHg. Left dorsalis pedis artery = 157mmHg. Left digit = 127 mmHg. The left dorsalis pedis waveforms are triphasic. The left posterior tibial artery waveforms are triphasic. Right Segmental Pressures Right brachial= 148mmHg. Right posterior tibial artery = 161mmHg. Right dorsalis pedis artery = 164mmHg. Right digit = 139 mmHg. The right dorsalis pedis waveforms are triphasic. The right posterior tibial artery waveforms are triphasic. Indices The right ankle brachial index by the dorsalis pedis is 1.07. The right ankle brachial index by the posterior tibial artery is 1.05. The right digital-brachial index is 0.91. The left ankle brachial index by the dorsalis pedis is 1.03. The left ankle brachial index by the posterior tibial artery is 1.08. The left digital-brachial index is 0.83. VL/Lower Ext Art Exam w/o Exercis Interpretation Summary Triphasic Doppler waveforms are noted at ankle level bilaterally. Pulse-volume recordings appear satisfactory at all levels bilaterally. Resting ankle-brachial indices are norm al bilaterally. Digital-brachial indices are normal bilaterally. There is no evidence of significant arterial occlusive disease in the lower ext remities bilaterally. Ordering Physician: Fabio Otero Referring Physician: Fritz Villatoro Performed By: Tracee Hernandez RVT
[2022-03-08] MEDS: Enoxaparin 40 MG/0.4 ML Syringe SC (10:28)
[2022-03-08 11:09] LABS: Absolute Lymphocyte Count 1.46 X10^3/uL (0.83-4.51); Basophil# 0.06 X10^3/uL; Basophil% 0.6 % (0-1); Eosinophil# 0.19 X10^3/uL; Eosinophils% 1.8 % (0-5); Hematocrit 32.3 % (37-47); Hemoglobin 10.3 g/dL (12.0-15.0); Lymphocyte # 1.46 X10^3/ul (0.83-4.51); Mean Corp Hgb Conc 31.9 g/dL (32-36); Mean Corpuscular Hgb 33.8 pg (27.0-32.0); Mean Corpuscular Volume 105.9 fL (81-99); Mean Platelet Vol. 9.6 fl (6.2-12.0); Monocyte# 0.68 X10^3/uL; Monocyte% 6.5 % (0-10); NRBC Flagged by Analyzer 0 % (0-5); Neutrophil # 7.95 X10^3/uL (2.7-7.7); Neutrophil % 76.5 % (47-70); Platelet Count 265 K/mm3 (150-450); RBC Distribution Width CV 16.1 % (11.6-14.6); RBC Distribution Width SD 62.6 fl (35.1-43.9); Red Blood Count 3.05 M/mm3 (4.2-5.4); White Blood Count 10.4 K/mm3 (4.4-11.0)
[2022-03-08 11:20] LABS: ALB/GLOB Ratio 0.5 RATIO (0.9-2.4); AST(SGOT) 77 U/L (15-37); Alanine Aminotransfer ALT/SGPT 60 U/L (13-56); Albumin, Serum 1.9 g/dL (3.2-5.0); Alkaline Phosphatase 177 U/L (45-117); Anion Gap 6 (5-15); BUN 15 mg/dL (7-18); BUN/Creat Ratio 23.1 RATIO (10-20); Calcium,Total 8.2 mg/dL (8.5-10.1); Chloride 112 mmol/L (98-107); Creatinine, Serum 0.65 mg/dL (0.55-1.02); EST Glomerular Filtration Rate 99 mL/min (>60); Est Glom Filt Rate - Afr Amer 120 mL/min (>60); Estimated Creatinine Clearance 95.17 ml/min; Globulin 3.7 g/dL (2.2-4.2); Glucose 107 mg/dL (74-106); Potassium 3.5 mmol/L (3.5-5.1); Protein, Total 5.6 g/dL (6.4-8.2); Sodium Level 143 mmol/L (136-145)
--- NOTE | 2022-03-08 11:55 | CASEMGMT ---
RN CM Face to Face with patient for initial transition planning/care coordination assessment. RN CM introduced self and role at [facility]. Patient lying in bed, alert and oriented. Patient willing to participate in assessment and is able to answer all questions appropriately. Care providers, pharmacy, and demographics verified. Patient wishes to discharge home, denies need for home health at this time. Patient states she has no further needs or concerns at this time. CM to follow for discharge planning needs that may arise. PCP: [place] Specialists: none [facility] Insurance: [employer] [facility] Prescription Benefit: yes Living Will/HPOA: none LNOK: Living Arrangements: Patient lives with in a mobile home with 3 steps and railing to enter the home. Patient states she was independent at home. Transportation: self, DME/HHC: Patient states she has cane, grab bars, and shower chair at home. Discussed possible walker at discharge. 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 Disposition Plan: Patient to discharge home with family support and follow-up plans in place. Tracee RICHARDSON, RN, CM
[2022-03-09] VITALS (7 sets, daily range): BP systolic 124–142; BP diastolic 62–79; PULSE 92–110; RESP 18–20; TEMP 36.6–37.4; O2SAT 88–95
[2022-03-09] MEDS: 0.9% Saline Lock 10 ML Syringe IV ×2 (00:53→14:50)
[2022-03-09] MEDS: Ibuprofen 400 MG Tablet PO (00:54)
[2022-03-09 01:37] LABS: Vancomycin, Trough Level 17.2 ug/mL (5.0-15.0)
--- NOTE | 2022-03-09 01:46 | PCM.RX.CS ---
Consult Pharmacy has been consulted to manage selected antiobiotic: Vancomycin Type of Consult: Follow-up Suspected Infection: Skin/Soft tissue Prior Doses of Antibiotics Received/Current Regimen: Medications Vancomycin HCl 1,500 mg/ (Sodium Chloride) 530 mls @ 250 mls/hr IV Q12H PRECIOUS Vancomycin HCl 1,750 mg/ (Sodium Chloride) 535 mls @ 250 mls/hr IV Q12H PRECIOUS Stop: 03/09/22 03:30 Last Admin: 03/09/22 00:54 Dose: 250 mls/hr Labs: Sodium 143 mmol/L (136-145) 03/08/22 10:40 Potassium 3.5 mmol/L (3.5-5.1) 03/08/22 10:40 Chloride 112 mmol/L (98-107) H 03/08/22 10:40 Carbon Dioxide 25.0 mmol/L (21.0-32.0) 03/08/22 10:40 Anion Gap 6 (5-15) 03/08/22 10:40 BUN 15 mg/dL (7-18) 03/08/22 10:40 Creatinine 0.65 mg/dL (0.55-1.02) 03/08/22 10:40 Est GFR (MDRD) Af Amer 120 mL/min (>60) 03/08/22 10:40 Est GFR (MDRD) Non-Af 99 mL/min (>60) 03/08/22 10:40 BUN/Creatinine Ratio 23.1 RATIO (10-20) H 03/08/22 10:40 Glucose 107 mg/dL (74-106) H 03/08/22 10:40 Vancomycin Trough 17.2 ug/mL (5.0-15.0) H 03/09/22 00:33 Microbiology: Microbiology 03/07/22 17:39 Wound - Left Foot Gram Stain - Final 03/07/22 17:39 Wound - Left Foot Wound Culture - Preliminary Staphylococcus aureus 03/07/22 21:05 Nasal Secretion SARS-CoV-2 Antigen (Rapid) - Final Weight used for dosin.2 kg Estimated Creatinine Clearance: >120 Goal Trough: 10-15 mcg/mL Pharmacy Plan for Drug Dosing: Vancomycin trough level was 17.2, above the target range of 10-15. The dose will be decreased to 1500mg q12h, and another trough will be drawn prior to 4th dose of the new regimen. Pharmacy Service will continue to monitor and adjust dosing as required. Follow-Up Labs: Trough Vancomycin Labs to be done on [date and time ordered]: 03/11/22 @0030
--- NOTE | 2022-03-09 07:11 | PN.HOSP_ITS ---
Subjective Subjective Still swelling in her foot but when she looked at earlier. He looks better. Objective Data Objective Data Vital Signs: Vital Signs Temp Pulse Resp BP Pulse Ox O2 Del Method O2 Flow Rate 36.9 C 92 20 H 127/78 H 92 Room Air 2 03/09/22 02:56 03/09/22 02:56 03/09/22 02:56 03/09/22 02:56 03/09/22 02:56 03/09/22 02:56 03/08/22 14:35 Oxygen Flow Rate (L/min) 2 Oxygen Delivery Method Room Air Weight: 115.2 kg Body Mass Index (BMI) 38.5 Intake & Output: Intake and Output for Last 24 Hours 03/07/22 03/08/22 03/09/22 23:59 23:59 23:59 Intake Total 580 / 580 2570 / 2570 585 / 585 Balance 580 / 580 2570 / 2570 585 / 585 Lab / Micro Data Result Diagrams: 03/09/22 11:04 03/09/22 11:04 Labs: Laboratory Results - last 24 hr 03/08/22 10:40: WBC 10.4, RBC 3.05 L, Hgb 10.3 L, Hct 32.3 L, MCV 105.9 H, MCH 33.8 H, MCHC 31.9 L, RDW Std Deviation 62.6 H, RDW Coeff of Arnold 16.1 H, Plt Count 265, MPV 9.6, Immature Gran % (Auto) 0.600, Neut % (Auto) 76.5 H, Lymph % (Auto) 14.0 L, [place] % (Auto) 6.5, Eos % (Auto) 1.8, Baso % (Auto) 0.6, Absolute Neuts (auto) 8.0 H, Absolute Lymphs (auto) 1.46, Nucleated RBC % 0 03/08/22 10:40: Sodium 143, Potassium 3.5, Chloride 112 H, Carbon Dioxide 25.0, Anion Gap 6, BUN 15, Creatinine 0.65, Estim Creat Clear Calc 95.17, Est GFR (MDRD) Af Amer 120, Est GFR (MDRD) Non-Af 99, BUN/Creatinine Ratio 23.1 H, Glucose 107 H, Calcium 8.2 L, Total Bilirubin 1.50 H, AST 77 H, ALT 60 H, Alkaline Phosphatase 177 H, Total Protein 5.6 L, Albumin 1.9 L, Globulin 3.7, Albumin/Globulin Ratio 0.5 L 03/09/22 00:33: Vancomycin Trough 17.2 H Micro: Microbiology 03/07/22 17:39 Wound - Left Foot Gram Stain - Final 03/07/22 17:39 Wound - Left Foot Wound Culture - Preliminary Staphylococcus aureus 03/07/22 21:05 Nasal Secretion SARS-CoV-2 Antigen (Rapid) - Final Physical Exam Const alert and no apparent distress Resp normal respiratory effort, no retractions, no use of accessory muscles and clear to auscultation bilaterally Cardio regular rate, regular rhythm, S1 normal heart sound and S2 normal heart sound GI normal to inspection, nondistended, normoactive bowel sounds, soft to palpation, non-tender and non-distended Assessment & Plan Assessment/Plan (1) Cellulitis of left lower limb: PLAN: Patient has an elevated CRP as well as ESR plus or leukocytosis is concerning for not just cellulitis but possibly deeper infection. Secondary to MSSA MRI left lower extremity shows mild degenerative findings in the first MTP. Diffuse soft tissue swelling along the dorsum of the foot. DC Zosyn Can be discharged from my standpoint. Could use any of the options for 7 days but due to cost doxycycline would be most reasonable. Could also consider Bactrim as well. Would not recommend linezolid due to cost. (2) Lactic acidosis: PLAN: Unclear significance Patient is not clinically septic at this time Would not pursue this any further unless patient's condition changes for the worse (3) Hepatitis: PLAN: Per history. Patient has a history of heavy alcohol consumption as well as Tylenol use. Looking back at her LFTs appear to be improving. No additional work-up while patient is in the hospital but patient may benefit from seeing principal java developer as outpatient. PLAN: Plan VTE prophylaxis: Agree with the enoxaparin. COVID-19 vaccination status: Patient has been vaccinated though not boosted. Patient is open to getting the booster. COVID-19 negative. Booster given 03/08. Charges/Coding Visit Charges Inpatient E&M: 58005 Subs Hosp L2
--- NOTE | 2022-03-09 08:27 | PCM.PROGNOTE ---
Subjective Subjective Patient was seen this morning for follow up on left foot. She relates she took the dressing off this morning so it could get some air. She is resting in bed comfortably. She denies and fever, nauesa, vomiting, shortness of breath, or chest pain. She relates to some chills. Objective Data Objective Data Vital Signs: Vital Signs Temp Pulse Resp BP Pulse Ox O2 Del Method O2 Flow Rate 98.4 F 92 20 H 127/78 H 92 Room Air 2 03/09/22 02:56 03/09/22 02:56 03/09/22 02:56 03/09/22 02:56 03/09/22 02:56 03/09/22 02:56 03/08/22 14:35 Oxygen Flow Rate (L/min) 2 Oxygen Delivery Method Room Air Weight: 115.2 kg Body Mass Index (BMI) 38.5 Intake & Output: Intake and Output for Last 24 Hours 03/07/22 03/08/22 03/09/22 23:59 23:59 23:59 Intake Total 580 / 580 2570 / 2570 585 / 585 Balance 580 / 580 2570 / 2570 585 / 585 Lab / Micro Data Result Diagrams: 03/08/22 10:40 03/08/22 10:40 Labs: Laboratory Results - last 24 hr 03/08/22 10:40: WBC 10.4, RBC 3.05 L, Hgb 10.3 L, Hct 32.3 L, MCV 105.9 H, MCH 33.8 H, MCHC 31.9 L, RDW Std Deviation 62.6 H, RDW Coeff of Arnold 16.1 H, Plt Count 265, MPV 9.6, Immature Gran % (Auto) 0.600, Neut % (Auto) 76.5 H, Lymph % (Auto) 14.0 L, [place] % (Auto) 6.5, Eos % (Auto) 1.8, Baso % (Auto) 0.6, Absolute Neuts (auto) 8.0 H, Absolute Lymphs (auto) 1.46, Nucleated RBC % 0 03/08/22 10:40: Sodium 143, Potassium 3.5, Chloride 112 H, Carbon Dioxide 25.0, Anion Gap 6, BUN 15, Creatinine 0.65, Estim Creat Clear Calc 95.17, Est GFR (MDRD) Af Amer 120, Est GFR (MDRD) Non-Af 99, BUN/Creatinine Ratio 23.1 H, Glucose 107 H, Calcium 8.2 L, Total Bilirubin 1.50 H, AST 77 H, ALT 60 H, Alkaline Phosphatase 177 H, Total Protein 5.6 L, Albumin 1.9 L, Globulin 3.7, Albumin/Globulin Ratio 0.5 L 03/09/22 00:33: Vancomycin Trough 17.2 H Micro: Microbiology 03/07/22 17:39 Wound - Left Foot Gram Stain - Final 03/07/22 17:39 Wound - Left Foot Wound Culture - Preliminary Staphylococcus aureus 03/07/22 21:05 Nasal Secretion SARS-CoV-2 Antigen (Rapid) - Final Physical Exam Const alert, oriented x3 and no apparent distress Extremity Extremity Narrative: Left foot with multiple wound lesions and some excoriations to the dorsal foot and lateral ankle down to subcutaneous tissue - there is no drainage today and these have dried up, there is edema to the foot extending to ankle and leg and there is localized erythema around the wound/lesion sites, there is no visible abscess, no crepitus, no fluctuance, no probe to bone. CFT < 2 seconds to the toes and DP pulse is intact left foot, no evidence of acute ischemia. There is still noted POP to the dorsal foot, left which she relates has improved - no gross instability to the foot, sensation is intact to the foot and ankle - left. Muscle strength intact to the left foot/ankle. Assessment & Plan Assessment/Plan (1) Cellulitis of left lower limb: (2) Pain in left foot: (3) Non-pressure chronic ulcer of other part of right foot with fat layer exposed: (4) Tinea pedis: PLAN: Plan Re-evaluation performed. Reviewed diagnostic data. WBC normal. The cellulitis has not improved much compared to yesterday - Left foot xrays reviewed - no fractures, no gas noted. MRI of left foot was ordered for further evaluation - this was reviewed and there is no deep abscess, and no evidence of osteomyelitis. A culture was obtained from wounds left foot - sent to microbiology - results so far growing staph aureus - final pending. Patient on Vanc/Zosyn. Upon further evaluation I believe there may be a component of/superimposed possible tinea pedis or dermatitis - ordered Lotrisone cream to be applied topically to left foot/ankle BID. Wound care left foot/leg - Lotrisone cream, gauze, kerlix and mark for compression therapy. Keep foot elevated. Noninvasive lower extremity arterial study was ordered for further evaluation of arterial flow to feet. No evidence of acute ischemia at this time. DVT Prophylaxis - Lovenox 40mg subcutaneous daily. Medicine team on consult - appreciate assistance.
[2022-03-09] MEDS: Enoxaparin 40 MG/0.4 ML Syringe SC (09:57)
[2022-03-09 11:18] LABS: Absolute Lymphocyte Count 1.66 X10^3/uL (0.83-4.51); Absolute Neutrophil Count 7.5 X10^3/uL (2.0-7.7); Basophil# 0.09 X10^3/uL; Basophil% 0.9 % (0-1); Eosinophil# 0.23 X10^3/uL; Eosinophils% 2.2 % (0-5); Hemoglobin 10.1 g/dL (12.0-15.0); Lymphocyte # 1.66 X10^3/ul (0.83-4.51); Lymphocyte % 16.2 % (19-41); Mean Corp Hgb Conc 33.7 g/dL (32-36); Mean Corpuscular Hgb 34.6 pg (27.0-32.0); Mean Corpuscular Volume 102.7 fL (81-99); Mean Platelet Vol. 9.5 fl (6.2-12.0); Monocyte# 0.71 X10^3/uL; Monocyte% 6.9 % (0-10); NRBC Flagged by Analyzer 0 % (0-5); Neutrophil # 7.49 X10^3/uL (2.7-7.7); Neutrophil % 73.2 % (47-70); Platelet Count 275 K/mm3 (150-450); RBC Distribution Width CV 16.2 % (11.6-14.6); RBC Distribution Width SD 61.4 fl (35.1-43.9); Red Blood Count 2.92 M/mm3 (4.2-5.4); White Blood Count 10.2 K/mm3 (4.4-11.0)
[2022-03-09 11:33] LABS: Anion Gap 6 (5-15); BUN 17 mg/dL (7-18); BUN/Creat Ratio 24.5 RATIO (10-20); Chloride 113 mmol/L (98-107); Creatinine, Serum 0.69 mg/dL (0.55-1.02); EST Glomerular Filtration Rate 92 mL/min (>60); Est Glom Filt Rate - Afr Amer 112 mL/min (>60); Estimated Creatinine Clearance 89.65 ml/min; Glucose 103 mg/dL (74-106); Potassium 3.6 mmol/L (3.5-5.1); Sodium Level 142 mmol/L (136-145)
[2022-03-09] MEDS: Clotrimazole/Betamethasone 1 Tube 1 APPLIC TOPICAL ×2 (16:02→23:03)
[2022-03-10 05:59] VITALS: BP 119/73; PULSE 100; RESP 20; TEMP 36.8; O2SAT 93
[2022-03-10] MEDS: 0.9% Saline Lock 10 ML Syringe IV ×2 (06:04→12:23)
--- NOTE | 2022-03-10 08:05 | PN_ITS ---
Subjective Subjective Patient was seen this morning for follow up on left foot, she relates there is no pain to the foot. She has no complaints of fever, chills, nausea, or vomiting. She is resting, sitting up in bed. She is asking if she can go home today. Objective Data Objective Data Vital Signs: Vital Signs Temp Pulse Resp BP Pulse Ox O2 Del Method O2 Flow Rate 98.2 F 100 20 H 119/73 93 Room Air 2 03/10/22 05:59 03/10/22 05:59 03/10/22 05:59 03/10/22 05:59 03/10/22 05:59 03/10/22 05:59 03/09/22 23:24 Oxygen Flow Rate (L/min) 2 Oxygen Delivery Method Room Air Weight: 115.2 kg Body Mass Index (BMI) 38.5 Intake & Output: Intake and Output for Last 24 Hours 03/08/22 03/09/22 03/10/22 23:59 23:59 23:59 Intake Total 2570 / 2570 2795.00 / 2795.00 530 / 530 Balance 2570 / 2570 2795.00 / 2795.00 530 / 530 Lab / Micro Data Result Diagrams: 03/09/22 11:04 03/09/22 11:04 Labs: Laboratory Results - last 24 hr 03/09/22 11:04: WBC 10.2, RBC 2.92 L, Hgb 10.1 L, Hct 30.0 L, MCV 102.7 H, MCH 34.6 H, MCHC 33.7 D, RDW Std Deviation 61.4 H, RDW Coeff of Arnold 16.2 H, Plt Count 275, MPV 9.5, Immature Gran % (Auto) 0.600, Neut % (Auto) 73.2 H, Lymph % (Auto) 16.2 L, [place] % (Auto) 6.9, Eos % (Auto) 2.2, Baso % (Auto) 0.9, Absolute Neuts (auto) 7.5, Absolute Lymphs (auto) 1.66, Nucleated RBC % 0 03/09/22 11:04: Sodium 142, Potassium 3.6, Chloride 113 H, Carbon Dioxide 23.0, Anion Gap 6, BUN 17, Creatinine 0.69, Estim Creat Clear Calc 89.65, Est GFR (MDRD) Af Amer 112, Est GFR (MDRD) Non-Af 92, BUN/Creatinine Ratio 24.5 H, Glucose 103, Calcium 8.0 L Micro: Microbiology 03/07/22 12:30 Blood Culture (Wb) - Anticubital Right Blood Culture - Preliminary No growth in 48 hours. 03/07/22 12:15 Blood Culture (Wb) - Anticubital Right Blood Culture - Preliminary No growth in 48 hours. 03/07/22 17:39 Wound - Left Foot Gram Stain - Final 03/07/22 17:39 Wound - Left Foot Wound Culture - Final Staphylococcus aureus 03/07/22 21:05 Nasal Secretion SARS-CoV-2 Antigen (Rapid) - Final Physical Exam Const alert, oriented x3 and no apparent distress Extremity Extremity Narrative: Left foot with multiple wound lesions and some excoriations to the dorsal foot and lateral ankle down to subcutaneous tissue - there is no drainage today and these have dried up, there is edema to the foot extending to ankle and leg and there is localized erythema around the wound/lesion sites - improved, there is no visible abscess, no crepitus, no fluctuance, no probe to bone. CFT < 2 seconds to the toes and DP pulse is intact left foot, no evidence of acute ischemia. There is resolved POP to the dorsal foot - no gross instability to the foot, sensation is intact to the foot and ankle - left. Muscle strength intact to the left foot/ankle. Assessment & Plan Assessment/Plan (1) Cellulitis of left lower limb: (2) Pain in left foot: (3) Non-pressure chronic ulcer of other part of right foot with fat layer exposed: (4) Tinea pedis: PLAN: Plan Re-evaluation performed. Reviewed diagnostic data. WBC normal. The cellulitis has improved much compared to yesterday - Left foot xrays reviewed - no fra ctures, no gas noted. MRI of left foot was ordered for further evaluation - this was reviewed and there is no deep abscess, and no evidence of osteomyelitis. A culture was obtained from wounds left foot - sent to microbiology - results so far growing staph aureus - final pending. Patient on Vanc. I believe there may be a component of/superimposed possible tinea pedis / dermatitis - Lotrisone cream to be applied topically to left foot/ankle BID. Wound care left foot/leg - Lotrisone cream, gauze, Kerlix and mark for compression therapy. Keep foot elevated. Noninvasive lower extremity arterial study was ordered for further evaluation of arterial flow to feet. No evidence of acute ischemia at this time. DVT Prophylaxis - Lovenox 40mg subcutaneous daily. Medicine team on consult - appreciate assistance. Plan to discharge home today.
[2022-03-10 08:24] VITALS: BP 139/72; PULSE 106; RESP 18; TEMP 37.1; O2SAT 92
[2022-03-10 09:36] LABS: Absolute Lymphocyte Count 2.23 X10^3/uL (0.83-4.51); Absolute Neutrophil Count 7.4 X10^3/uL (2.0-7.7); Basophil# 0.12 X10^3/uL; Basophil% 1.1 % (0-1); Eosinophil# 0.21 X10^3/uL; Hematocrit 32.9 % (37-47); Hemoglobin 10.8 g/dL (12.0-15.0); Lymphocyte # 2.23 X10^3/ul (0.83-4.51); Lymphocyte % 20.9 % (19-41); Mean Corp Hgb Conc 32.8 g/dL (32-36); Mean Corpuscular Volume 103.5 fL (81-99); Mean Platelet Vol. 9.5 fl (6.2-12.0); Monocyte# 0.68 X10^3/uL; Monocyte% 6.4 % (0-10); NRBC Flagged by Analyzer 0 % (0-5); Neutrophil # 7.38 X10^3/uL (2.7-7.7); Neutrophil % 68.9 % (47-70); Platelet Count 319 K/mm3 (150-450); RBC Distribution Width CV 16.8 % (11.6-14.6); Red Blood Count 3.18 M/mm3 (4.2-5.4); White Blood Count 10.7 K/mm3 (4.4-11.0)
[2022-03-10] MEDS: Clotrimazole/Betamethasone 1 Tube 1 APPLIC TOPICAL (09:44)
[2022-03-10] MEDS: Enoxaparin 40 MG/0.4 ML Syringe SC (09:44)
[2022-03-10 09:53] LABS: ALB/GLOB Ratio 0.5 RATIO (0.9-2.4); AST(SGOT) 72 U/L (15-37); Alanine Aminotransfer ALT/SGPT 47 U/L (13-56); Albumin, Serum 1.9 g/dL (3.2-5.0); Alkaline Phosphatase 186 U/L (45-117); Anion Gap 5 (5-15); BUN 13 mg/dL (7-18); BUN/Creat Ratio 21.2 RATIO (10-20); Calcium,Total 8.2 mg/dL (8.5-10.1); Chloride 111 mmol/L (98-107); Creatinine, Serum 0.61 mg/dL (0.55-1.02); EST Glomerular Filtration Rate 106 mL/min (>60); Est Glom Filt Rate - Afr Amer 128 mL/min (>60); Estimated Creatinine Clearance 101.41 ml/min; Globulin 4.2 g/dL (2.2-4.2); Glucose 139 mg/dL (74-106); Potassium 3.4 mmol/L (3.5-5.1); Protein, Total 6.1 g/dL (6.4-8.2); Sodium Level 139 mmol/L (136-145)
--- NOTE | 2022-03-10 10:28 | PN.HOSP_ITS ---
Subjective Subjective Patient seen and examined. She felt well and had no active complaints. Nurse noted that she was only saturating at ~ 89-91% on room air. Patient denied feeling short of breath, cough, chest pain, palpitations or dizziness. Review of systems is otherwise negative. Objective Data Objective Data Vital Signs: Vital Signs Temp Pulse Resp BP Pulse Ox O2 Del Method O2 Flow Rate 98.8 F 106 H 18 139/72 H 92 Room Air 2 03/10/22 08:24 03/10/22 08:24 03/10/22 08:24 03/10/22 08:24 03/10/22 08:24 03/10/22 08:36 03/09/22 23:24 Oxygen Flow Rate (L/min) 2 Oxygen Delivery Method Room Air Weight: 253 lb 15.56 oz Body Mass Index (BMI) 38.5 Intake & Output: Intake and Output for Last 24 Hours 03/08/22 03/09/22 03/10/22 23:59 23:59 23:59 Intake Total 2570 / 2570 2795.00 / 2795.00 530 / 530 Balance 2570 / 2570 2795.00 / 2795.00 530 / 530 Lab / Micro Data Result Diagrams: 03/10/22 09:20 03/10/22 09:20 Labs: Laboratory Results - last 24 hr 03/09/22 11:04: WBC 10.2, RBC 2.92 L, Hgb 10.1 L, Hct 30.0 L, MCV 102.7 H, MCH 34.6 H, MCHC 33.7 D, RDW Std Deviation 61.4 H, RDW Coeff of Arnold 16.2 H, Plt Count 275, MPV 9.5, Immature Gran % (Auto) 0.600, Neut % (Auto) 73.2 H, Lymph % (Auto) 16.2 L, [place] % (Auto) 6.9, Eos % (Auto) 2.2, Baso % (Auto) 0.9, Absolute Neuts (auto) 7.5, Absolute Lymphs (auto) 1.66, Nucleated RBC % 0 03/09/22 11:04: Sodium 142, Potassium 3.6, Chloride 113 H, Carbon Dioxide 23.0, Anion Gap 6, BUN 17, Creatinine 0.69, Estim Creat Clear Calc 89.65, Est GFR (MDRD) Af Amer 112, Est GFR (MDRD) Non-Af 92, BUN/Creatinine Ratio 24.5 H, Glucose 103, Calcium 8.0 L 03/10/22 09:20: WBC 10.7, RBC 3.18 L, Hgb 10.8 L, Hct 32.9 L, MCV 103.5 H, MCH 34.0 H, MCHC 32.8, RDW Std Deviation 64.0 H, RDW Coeff of [place] 16.8 H, Plt Count 319, MPV 9.5, Immature Gran % (Auto) 0.700, Neut % (Auto) 68.9, Lymph % (Auto) 20.9, [place] % (Auto) 6.4, Eos % (Auto) 2.0, Baso % (Auto) 1.1 H, Absolute Neuts (auto) 7.4, Absolute Lymphs (auto) 2.23, Nucleated RBC % 0 03/10/22 09:20: Sodium 139, Potassium 3.4 L, Chloride 111 H, Carbon Dioxide 23.0, Anion Gap 5, BUN 13, Creatinine 0.61, Estim Creat Clear Calc 101.41, Est GFR (MDRD) Af Amer 128, Est GFR (MDRD) Non-Af 106, BUN/Creatinine Ratio 21.2 H, Glucose 139 H, Calcium 8.2 L, Total Bilirubin 1.40 H, AST 72 H, ALT 47, Alkaline Phosphatase 186 H, Total Protein 6.1 L, Albumin 1.9 L, Globulin 4.2, Albumin/Globulin Ratio 0.5 L Micro: Microbiology 03/07/22 17:39 Wound - Left Foot Gram Stain - Final 03/07/22 17:39 Wound - Left Foot Wound Culture - Final Staphylococcus aureus 03/07/22 17:39 Wound - Left Foot Anaerobic Culture - Final No anaerobic bacteria isolated. 03/07/22 12:30 Blood Culture (Wb) - Anticubital Right Blood Culture - Preliminary No growth in 48 hours. 03/07/22 12:15 Blood Culture (Wb) - Anticubital Right Blood Culture - Preliminary No growth in 48 hours. 03/07/22 21:05 Nasal Secretion SARS-CoV-2 Antigen (Rapid) - Final Physical Exam Const alert, oriented x3 and no apparent distress HEENT head/scalp atraumatic, moist oral mucous membranes and oropharynx normal Mouth: oral and palatal mucosa normal Eyes PERRL and EOMs intact bilaterally Neck no lymphadenopathy, supple and no JVD Resp normal respiratory effort, no retractions and no use of accessory muscles Resp Narrative: on room air. few crackles bibasally, likely from atelectasis Cardio regular rate, regular rhythm, S1 normal heart sound, S2 normal heart sound and no murmurs GI normal to inspection, nondistended, normoactive bowel sounds, soft to palpation, non-tender and non-distended Extremity Extremity Narrative: left foot wrapped in bandage. Neuro oriented x3, CN's II-XII intact bilaterally and no focal motor deficits Sensorium / Orientation: awake, alert and oriented to person Psych affect normal Assessment & Plan Assessment/Plan (1) Cellulitis of foot, left: PLAN: Plan #Cellulitis of the LLE * feels better today * MRI of left foot showed mild degenerative changes in [place] first MTP. * podiatry on board * ID consulted per podiatry for antibiotic recommendation * #Cirrhosis * Patient does appear to have a history of cirrhosis as she is on rifaximin and pentoxifylline and also has a history of chronic alcohol use. * To follow-up with gastroenterology on outpatient basis. * #Hypoxia likely due to atelectasis * Patient saturations are marginal at around 89 to 91% this morning. She denies any shortness of breath. She does admit to not using her incentive spirometry and has been quite sedentary in bed throughout her admission. Patient is also obese. On using incentive spirometer in my presence, her saturation improved indicating this is likely due to atelectasis. * Patient counseled that she should use the incentive spirometer about 10-12 times every hour to help with atelectasis. * Breathing treatments bronchodilators. * DVT prophylaxis: lovenox Disposition: * Patient stable for discharge from medical standpoint. Encouraged to use incentive spirometer whilst at home and to also increase physical activity to help prevent atelectasis. Charges/Coding Visit Charges Inpatient E&M: 45991 Subs Hosp L2
--- NOTE | 2022-03-10 14:03 | PCM.CONS.GEN ---
Assessment & Plan Assessment/Plan (1) Cellulitis of foot, left: PLAN: Wound cx with mssa. MRI showed no osteo. Sx much improved. Ok for home with 7 more days po keflex, wrote rx. Will follow as needed, thank you, d/w case folder HPI Consult Data Date of Consult: 03/10/22 HPI Narrative Reason for Consultation: foot infection HPI Narrative: NU BASURTO, is a 56 F who presented 03/07 with about a week or two of progressive L foot pain, redness, swelling. No fever or chills, no outpt abx. No n/v/d. No drainage. Came to ED, admitted on vanc/zosyn. Seen by podiatry, mri done, foot now much better. Wound cx with MSSA. Discharge home planned. Full ROS performed and neg except as noted above. [facility] Medical History Former smoker Hepatitis Hyperlipidemia Hypertension TGA (transient global amnesia) Home Medications clonidine HCl 0.2 mg tablet 0.2 mg PO DAILY blood pressure 09/04/14 [History Last Taken 01/23/22] fluoxetine 10 mg capsule 10 mg PO PRN PRN depression 01/19/21 [History Last Taken 2 Days Ago ~01/21/22] potassium chloride 20 mEq tablet,extended release(part/cryst) (Klor-Con M) 20 meq PO TID 01/23/22 [History Last Taken 01/23/22] furosemide 40 mg tablet 40 mg PO DAILY #30 tabs 01/28/22 [Rx Last Taken Unknown] gabapentin 300 mg capsule 300 mg PO TID #90 caps 01/28/22 [Rx Last Taken Unknown] pantoprazole 40 mg tablet,delayed release (Protonix) 40 mg PO DAILY #30 tabs 01/28/22 [Rx Last Taken Unknown] pentoxifylline 400 mg tablet,extended release 400 mg PO BID #60 tabs 01/28/22 [Rx Last Taken Unknown] rifaximin 550 mg tablet (Xifaxan) 550 mg PO BID #60 tabs 01/28/22 [Rx Last Taken Unknown] cephalexin 500 mg capsule 500 mg PO TID #21 caps 03/10/22 [Rx Last Taken Unknown] Allergy/AdvReac Type Severity Reaction Status Date / Time No Known Allergies Allergy Verified 03/07/22 11:34 Family History Father Hypertension Mother Hypertension Surgical History Gastric bypass status for obesity History of total knee arthroplasty Previous back surgery Social History household members: spouse housing: house Smoking Status: Former smoker alcohol intake: current substance use type: does not use Physical Exam Const alert, oriented x3 and no apparent distress General Appearance: cooperative HEENT normocephalic and head/scalp atraumatic Eyes PERRL and EOMs intact bilaterally Neck supple and No nodes Resp normal air movement and clear to auscultation bilaterally Cardio regular rate and regular rhythm GI soft to palpation and non-tender Extremity General Extremity: edema Skin Skin Narrative: L foot wrapped Neuro CN's II-XII intact bilaterally Lab / Micro Data Attestation: I reviewed the patient's lab results. Result Diagrams: 03/10/22 09:20 03/10/22 09:20 Labs: Laboratory Results - last 24 hr 03/10/22 09:20: WBC 10.7, RBC 3.18 L, Hgb 10.8 L, Hct 32.9 L, MCV 103.5 H, MCH 34.0 H, MCHC 32.8, RDW Std Deviation 64.0 H, RDW Coeff of Arnold 16.8 H, Plt Count 319, MPV 9.5, Immature Gran % (Auto) 0.700, Neut % (Auto) 68.9, Lymph % (Auto) 20.9, [place] % (Auto) 6.4, Eos % (Auto) 2.0, Baso % (Auto) 1.1 H, Absolute Neuts (auto) 7.4, Absolute Lymphs (auto) 2.23, Nucleated RBC % 0 03/10/22 09:20: Sodium 139, Potassium 3.4 L, Chloride 111 H, Carbon Dioxide 23.0, Anion Gap 5, BUN 13, Creatinine 0.61, Estim Creat Clear Calc 101.41, Est GFR (MDRD) Af Amer 128, Est GFR (MDRD) Non-Af 106, BUN/Creatinine Ratio 21.2 H, Glucose 139 H, Calcium 8.2 L, Total Bilirubin 1.40 H, AST 72 H, ALT 47, Alkaline Phosphatase 186 H, Total Protein 6.1 L, Albumin 1.9 L, Globulin 4.2, Albumin/Globulin Ratio 0.5 L Micro: Microbiology 03/07/22 17:39 Wound - Left Foot Gram Stain - Final 03/07/22 17:39 Wound - Left Foot Wound Culture - Final Staphylococcus aureus 03/07/22 17:39 Wound - Left Foot Anaerobic Culture - Final No anaerobic bacteria isolated. 03/07/22 12:30 Blood Culture (Wb) - Anticubital Right Blood Culture - Preliminary No growth in 48 hours. 03/07/22 12:15 Blood Culture (Wb) - Anticubital Right Blood Culture - Preliminary No growth in 48 hours.
[2022-03-10 14:27] VITALS: BP 155/88; PULSE 98; RESP 18; TEMP 36.8; O2SAT 94
--- NOTE | 2022-03-10 16:08 | CASEMGMT ---
Pt to be dc'd on po antibiotics. Faxed [employer] FWW script. Spoke with Meagan who is gone for the day. Updated charge nurse for [facility] to be taken [facility].
--- NOTE | 2022-03-10 16:58 | PCM.DC.SUM ---
Providers Date of Admission: 03/07/22 Primary Care Physician: Dr. 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 Comment: Reason for Consult:: wound left foot 03/07/22 17:34 Consult: Hospitalist Routine Consulting Provider: Javier Coleman Reason for Consult: medical problems EMERGENT Consult: No MD Notified: Yes Date Notified: 03/07/22 Time Notified: 18:35 Method of Notification: via spok 03/10/22 08:26 Consult: Infectious Disease Routine Consulting Provider: Valeriano Calzada Reason for Consult: cellulitis MSSA, antibiotics EMERGENT Consult: No MD Notified: Yes Date Notified: 03/10/22 Time Notified: 08:26 Method of Notification: Text Reason For Visit: LEFT FOOT CELLULITIS Diagnosis Discharge Diagnosis (1) Cellulitis of foot, left: Status: Acute Code(s): L03.116 - Cellulitis of left lower limb (2) Cellulitis of left lower limb: Status: Acute Code(s): L03.116 - Cellulitis of left lower limb (3) Pain in left foot: Status: Acute Code(s): M79.672 - Pain in left foot (4) Non-pressure chronic ulcer of other part of right foot with fat layer exposed: Status: Chronic Code(s): L97.512 - Non-pressure chronic ulcer of other part of right foot with fat layer exposed (5) Tinea pedis: Status: Acute Code(s): B35.3 - Tinea pedis Plan Re-evaluation performed. Reviewed diagnostic data. WBC normal. The cellulitis has improved much compared to yesterday - Left foot xrays reviewed - no fractures, no gas noted. MRI of left foot was ordered for further evaluation - this was reviewed and there is no deep abscess, and no evidence of osteomyelitis. A culture was obtained from wounds left foot - sent to microbiology - results so far growing staph aureus - final pending. Patient on Vanc. I believe there may be a component of/superimposed possible tinea pedis / dermatitis - Lotrisone cream to be applied topically to left foot/ankle BID. Wound care left foot/leg - Lotrisone cream, gauze, Kerlix and mark for compression therapy. Keep foot elevated. Noninvasive lower extremity arterial study was ordered for further evaluation of arterial flow to feet. No evidence of acute ischemia at this time. DVT Prophylaxis - Lovenox 40mg subcutaneous daily. Medicine team on consult - appreciate assistance. Plan to discharge home today. Medications at Discharge Home Medications clonidine HCl 0.2 mg tablet 0.2 mg PO DAILY blood pressure 09/04/14 fluoxetine 10 mg capsule 10 mg PO PRN PRN depression 01/19/21 potassium chloride 20 mEq tablet,extended release(part/cryst) (Klor-Con M) 20 meq PO TID 01/23/22 furosemide 40 mg tablet 40 mg PO DAILY #30 tabs 01/28/22 gabapentin 300 mg capsule 300 mg PO TID #90 caps 01/28/22 pantoprazole 40 mg tablet,delayed release (Protonix) 40 mg PO DAILY #30 tabs 01/28/22 pentoxifylline 400 mg tablet,extended release 400 mg PO BID #60 tabs 01/28/22 rifaximin 550 mg tablet (Xifaxan) 550 mg PO BID #60 tabs 01/28/22 cephalexin 500 mg capsule 500 mg PO TID #21 caps 03/10/22 clotrimazole-betamethasone 1 %-0.05 % topical cream 1 applic topical BID 14 days #60 grams 03/10/22 Hospital Course Summary of Care Provided Hospital Course: Patient was admitted for left foot infection - MRI negative for deep abscess and negative for osteomyelitis. Culture grew MSSA. Patient's left foot much improved with IV antibiotics Vanc/Zosyn, and also with topical lotrisone cream with dressing changes. ID/Dr. Calzada saw patient and made antibiotic recommendations for discharge. Physical Exam Narrative See progress note from 03/10/2022 Weight / BMI Weight Weight: 115.2 kg Body Mass Index (BMI) 38.5 ABG / Lab / Microbiology Data Result Diagrams: 03/10/22 09:20 03/10/22 09:20 Laboratory: Laboratory Results - last 24 hr 03/10/22 09:20: WBC 10.7, RBC 3.18 L, Hgb 10.8 L, Hct 32.9 L, MCV 103.5 H, MCH 34.0 H, MCHC 32.8, RDW Std Deviation 64.0 H, RDW Coeff of Arnold 16.8 H, Plt Count 319, MPV 9.5, Immature Gran % (Auto) 0.700, Neut % (Auto) 68.9, Lymph % (Auto) 20.9, [place] % (Auto) 6.4, Eos % (Auto) 2.0, Baso % (Auto) 1.1 H, Absolute Neuts (auto) 7.4, Absolute Lymphs (auto) 2.23, Nucleated RBC % 0 03/10/22 09:20: Sodium 139, Potassium 3.4 L, Chloride 111 H, Carbon Dioxide 23.0, Anion Gap 5, BUN 13, Creatinine 0.61, Estim Creat Clear Calc 101.41, Est GFR (MDRD) Af Amer 128, Est GFR (MDRD) Non-Af 106, BUN/Creatinine Ratio 21.2 H, Glucose 139 H, Calcium 8.2 L, Total Bilirubin 1.40 H, AST 72 H, ALT 47, Alkaline Phosphatase 186 H, Total Protein 6.1 L, Albumin 1.9 L, Globulin 4.2, Albumin/Globulin Ratio 0.5 L Microbiology: Microbiology 03/07/22 17:39 Wound - Left Foot Gram Stain - Final 03/07/22 17:39 Wound - Left Foot Wound Culture - Final Staphylococcus aureus 03/07/22 17:39 Wound - Left Foot Anaerobic Culture - Final No anaerobic bacteria isolated. 03/07/22 12:30 Blood Culture (Wb) - Anticubital Right Blood Culture - Preliminary No growth in 48 hours. 03/07/22 12:15 Blood Culture (Wb) - Anticubital Right Blood Culture - Preliminary No growth in 48 hours. 03/07/22 21:05 Nasal Secretion SARS-CoV-2 Antigen (Rapid) - Final D/C Instructions Keep extremity elevated above heart level: Left Leg Call your doctor if your incision/area has: Continuous Slow Oozing and Increased Redness Call your doctor if you observe: Fever of 101 or Higher, Shortness of breath, Chest pain, Calf discomfort and Uncontrolled pain Cleanse incision/area with: Normal Saline (Change dressing left foot/ankle/leg twice a day. Cleanse with normal saline solution. Allow to dry. Apply Lotrisone cream topically, cover with gauze and mark dressing. ) Please Follow Up With: Fabio Otero DPM When: this week at [facility] Office information: [facility] [address], [address] [place] [address] Meaningful Use Info Meaningful Use Diagnoses (Choose all that apply): None applicable Discharge Plan Admission Admit Date/Time: 03/07/22 17:57 Attending Provider: Fabio Otero Primary Care Provider: Fritz Villatoro Consulting Providers: Mona Deluna ; Valeriano Calzada Discharge Orders/Prescriptions Prescriptions: New cephalexin 500 mg capsule 500 mg PO TID Qty: 21 0RF clotrimazole-betamethasone 1-0.05 % Cream 1 applic topical BID 14 Days Qty: 60 1RF Protocol: *Topical Application Instructions APPLICATION INSTRUCTIONS: Apply topically to left foot/ankle twice a day then apply overlying gauze, kerlix and mark dressing. Rx Instructions: Apply topically to left foot/ankle twice a day. Continued clonidine HCl 0.2 MG tablet 0.2 mg PO DAILY Label Comments: blood pressure fluoxetine 10 mg Capsule 10 mg PO PRN PRN (Reason: depression) potassium chloride [Klor-Con M20] 20 mEq tablet,ER particles/crystals 20 meq PO TID furosemide 40 mg Tablet 40 mg PO DAILY Qty: 30 0RF pentoxifylline 400 mg Tablet Extended Release 400 mg PO BID Qty: 60 1RF Xifaxan 550 mg Tablet 550 mg PO BID Qty: 60 1RF pantoprazole [Protonix] 40 mg tablet,delayed release (DR/EC) 40 mg PO DAILY Qty: 30 1RF gabapentin 300 mg capsule 300 mg PO TID Qty: 90 0RF Referrals / Follow Up: Fritz Villatoro DO [Primary Care Provider] - Disposition Disposition (needs filled in before D/C Order can be placed): Home Health Service
--- NOTE | 2022-03-10 16:59 | DCINST_ITS ---
Discharge Instructions Activity Weight Bearing Status: - (Limit weightbearing to left foot.) Keep extremity elevated above heart level: Left Leg (Keep left foot/ankle elevated as much as possible.) Dressing / Incision Call your doctor if your incision/area has: Continuous Slow Oozing, Increased Pain/ Swelling, Increased Redness, Foul Smelling Discharge and - Call your doctor if you observe: Fever of 101 or Higher, Shortness of breath, Chest pain, Increased palpitations (irregular heartbeat), Calf discomfort and Uncontrolled pain Change Dressing in: 1 day (Change dressing to left foot/ankle twice a day. Cleanse with normal soap and water, dry with clean towel. Apply lotrisone cream, then apply overlying gauze and mark dressing. Change twice a day.) Cleanse incision/area with: Soap & Water Follow Up Care Please Follow Up With: Fabio Otero DPM When: 2-3 days, sooner if needed. Office information: [facility] [address], [place] [address] Test Results: Test results from this visit will be discussed in further detail at your follow- up appointment, if applicable. Discharge Plan Admission Admit Date/Time: 03/07/22 17:57 Attending Provider: Fabio Otero Primary Care Provider: Fritz Villatoro Consulting Providers: Mona Deluna ; Valeriano Calzada Discharge Orders/Prescriptions Prescriptions: New cephalexin 500 mg capsule 500 mg PO TID Qty: 21 0RF clotrimazole-betamethasone 1-0.05 % Cream 1 applic topical BID 14 Days Qty: 60 1RF Protocol: *Topical Application Instructions APPLICATION INSTRUCTIONS: Apply topically to left foot/ankle twice a day then apply overlying gauze, kerlix and mark dressing. Rx Instructions: Apply topically to left foot/ankle twice a day. Continued clonidine HCl 0.2 MG tablet 0.2 mg PO DAILY Label Comments: blood pressure fluoxetine 10 mg Capsule 10 mg PO PRN PRN (Reason: depression) potassium chloride [Klor-Con M20] 20 mEq tablet,ER particles/crystals 20 meq PO TID furosemide 40 mg Tablet 40 mg PO DAILY Qty: 30 0RF pentoxifylline 400 mg Tablet Extended Release 400 mg PO BID Qty: 60 1RF Xifaxan 550 mg Tablet 550 mg PO BID Qty: 60 1RF pantoprazole [Protonix] 40 mg tablet,delayed release (DR/EC) 40 mg PO DAILY Qty: 30 1RF gabapentin 300 mg capsule 300 mg PO TID Qty: 90 0RF Referrals / Follow Up: Fritz Villatoro DO [Primary Care Provider] - Disposition Disposition (needs filled in before D/C Order can be placed): Home Health Service
[2022-03-10 17:44] VITALS: BP 142/80; PULSE 94; RESP 18; TEMP 36.7; O2SAT 94
== END 2022-03-10 17:45 | disposition home health service (06) | DRG 603 ==
LOC: ED 17:51 → MS3 17:58
PROVIDERS: Admitting Provider Podiatrist; Emergency Provider Emergency Medicine; PCP Family Medicine; Visit Provider Podiatrist
DX: L03.116 Cellulitis of left lower limb (principal); E87.2 Acidosis; J98.11 Atelectasis; L97.512 Non-pressure chronic ulcer of other part of right foot with fat layer exposed; B35.3 Tinea pedis; B95.61 Methicillin susceptible Staphylococcus aureus infection as the cause of diseases classified elsewhere; K74.60 Unspecified cirrhosis of liver; E78.5 Hyperlipidemia, unspecified; M79.672 Pain in left foot; I10 Essential (primary) hypertension; M19.072 Primary osteoarthritis, left ankle and foot; Z23 Encounter for immunization; Z87.891 Personal history of nicotine dependence
CPT/HCPCS: 0064A; 36415; 73630; 73718; 80048; 80053; 80202; 83605; 85025; 85652; 86140; 87040; 87070; 87075; 87077; 87186; 87205; 87640; 87811; 91306; 93923; 97802; 99251; 99283; J7040; J7050; A4216; G0463

== ENCOUNTER 2022-04-02 11:50 | Inpatient (IN) | payer MEDICARE, SELFPAY ==
[2022-04-02] VITALS (18 sets, daily range): BP systolic 74–125; BP diastolic 47–80; PULSE 63–88; RESP 10–20; TEMP 35.6–36.8; O2SAT 94–100; BMI 35.7; BMI 41.1
--- NOTE | 2022-04-02 12:33 | EKG12_ITS ---
Test Reason : EDEMA Blood Pressure : / mmHG Vent. Rate : 073 BPM Atrial Rate : 073 BPM P-R Int : 158 ms QRS Dur : 094 ms QT Int : 402 ms P-R-T Axes : 022 -03 025 degrees QTc Int : 442 ms Normal sinus rhythm Normal ECG Confirmed by GHAZALA GÓMEZ, CHARITY ([id number]), manager editorial SILVESTRE COLLINS ([id number]) on 04/04/2022 2:03:28 PM Referred By: VICKY Confirmed By:VERN VIVAR MD
--- NOTE | 2022-04-02 12:35 | EX.ED.DYSGE1 ---
HPI History of Present Illness Chief Complaint: Edema Informant: patient Onset/Context/Timing Onset: Days Context: Gradual Onset Timing: Continuous Current Severity: Mild Maximum Severity: Mild Narrative Narrative: 56-year-old female reporting history of hepatitis and hypertension. States she was admitted to the hospital in the last several weeks for infection of the left foot. She is currently no longer on antibiotics. Says she developed a rash and swelling of both lower extremities. The swelling began several days ago. Even before she ran out of her diuretic. Says she just feels generally weak. She denies any nausea vomiting or diarrhea. No melena. No fever or chills. Prior similar symptoms: Yes Recent Illness/Hospitalization: [facility] OF [facility] Medical History Acute post-gastric reduction surgery (APGARS) neuropathy Former smoker Hepatitis Hyperlipidemia Hypertension Lactic acidosis TGA (transient global amnesia) Home Medications clonidine HCl 0.2 mg tablet 0.2 mg PO DAILY blood pressure 09/04/14 [History Last Taken 01/23/22] fluoxetine 10 mg capsule 10 mg PO PRN PRN depression 01/19/21 [History Last Taken 2 Days Ago ~01/21/22] potassium chloride 20 mEq tablet,extended release(part/cryst) (Klor-Con M) 20 meq PO TID 01/23/22 [History Last Taken 01/23/22] furosemide 40 mg tablet 40 mg PO DAILY #30 tabs 01/28/22 [Rx Last Taken Unknown] gabapentin 300 mg capsule 300 mg PO TID #90 caps 01/28/22 [Rx Last Taken Unknown] pantoprazole 40 mg tablet,delayed release (Protonix) 40 mg PO DAILY #30 tabs 01/28/22 [Rx Last Taken Unknown] cephalexin 500 mg capsule 500 mg PO TID #21 caps 03/10/22 [Rx Last Taken Unknown] magnesium oxide 400 mg (241.3 mg magnesium) tablet 400 mg PO BID 04/02/22 [History Last Taken Unknown] Allergy/AdvReac Type Severity Reaction Status Date / Time bee venom protein (honey bee) Allergy Swelling Verified 04/02/22 12:02 Family History Father Hypertension Mother Hypertension Surgical History Gastric bypass status for obesity History of total knee arthroplasty Previous back surgery Social History household members: spouse housing: house Smoking Status: Former smoker alcohol intake: current substance use type: does not use ROS ROS ED ROS Narrative Weakness. Leg swelling. Rash. Review of Systems ROS Unobtainable: Denies due to encephalopathy Constitutional Constitutional ED: Denies chills or fever(s) Eyes Eyes: Denies blurry vision ENT ENT ED: Denies ear pain Cardiovascular Cardiovascular: Denies chest pain Respiratory/Chest Respiratory/Chest: Reports dyspnea; Denies cough Gastrointestinal Gastrointestinal: Denies abdominal pain, constipation, diarrhea, melena, nausea or vomiting Genitourinary Genitourinary ED: Denies dysuria or hematuria Musculoskeletal Musculoskeletal: Denies arthralgias Integumentary Denies abscess Neurologic Neurologic: Denies headache(s) Psychiatric Psychiatric: Denies anxiety Endocrine Endocrinology: Denies cold intolerance Hematologic/Lymphatic Hematologic/Lymphatic: Reports none Allergic/Immunologic Allergic/Immunologic ED: Denies mouth swelling or tongue swelling EXAM Physical Exam Narrative Exam Narrative: 13-year-old female no acute distress she is hypotensive blood pressure 95/76. Pulse ox 95% on room air. Afebrile. She does not look septic or toxic. H EENT exam unremarkable. Moist Riis membranes. Neck nontender. Lungs clear to auscultation. Heart regular rhythm rate about 90 no murmur. Abdomen soft, nontender normal bowel sounds no peritoneal signs. Moving all 4 extremities. 2+ pitting edema both lower extremities. Calves are nontender. Neurologically she is awake and alert with no focal motor deficits. Skin there is a nondescript rash that blanches is diffuse. Red. No petechiae or purpura. Const Vital Signs: 04/02/22 11:51 04/02/22 11:52 04/02/22 11:56 Temperature 98.1 F 98.1 F Temperature Source Temporal Temporal Pulse Rate 88 88 Respiratory Rate 16 16 Respiratory Effort Normal Non-Labored Short of Breath Respiratory Pattern Normal Blood Pressure 95/76 95/76 Blood Pressure Mean 82 82 Pulse Ox 95 95 Oxygen Delivery Method Room Air Room Air 04/02/22 12:44 04/02/22 12:47 04/02/22 12:47 Temperature 98.3 F 98.3 F Temperature Source Oral Oral Pulse Rate 77 Respiratory Rate 13 Respiratory Effort Respiratory Pattern Blood Pressure 103/50 L Blood Pressure Mean 67 Pulse Ox 97 99 Oxygen Delivery Method Room Air Room Air 04/02/22 12:53 04/02/22 13:20 04/02/22 14:06 Temperature 98.3 F 97.0 F L 97.6 F L Temperature Source Oral Temporal Oral Pulse Rate 73 67 71 Respiratory Rate 15 14 16 Respiratory Effort Respiratory Pattern Blood Pressure 103/50 L 108/64 113/80 Blood Pressure Mean 67 78 91 Pulse Ox 97 98 98 Oxygen Delivery Method Room Air Room Air Room Air 04/02/22 14:06 04/02/22 14:06 04/02/22 15:08 Temperature 97.6 F L 97.6 F L 97.7 F L Temperature Source Oral Oral Oral Pulse Rate 71 66 Respiratory Rate 16 13 Respiratory Effort Respiratory Pattern Blood Pressure 113/80 109/47 L Blood Pressure Mean 91 67 Pulse Ox 98 99 Oxygen Delivery Method Room Air Room Air 04/02/22 15:08 04/02/22 15:09 Temperature 97.7 F L 97.7 F L Temperature Source Oral Oral Pulse Rate 68 Respiratory Rate 10 L Respiratory Effort Respiratory Pattern Blood Pressure 109/47 L Blood Pressure Mean 67 Pulse Ox 99 Oxygen Delivery Method Room Air Positive well nourished, well developed and obese; Negative for cachectic, contractures or unkempt General Appearance ED: well developed and NAD; Negative for unkempt, cachectic, contractures, cyanotic or diaphoretic Nutritional Appearance: obese; Negative for cachectic HEENT Reports moist mucous membranes Negative for trauma or tenderness Eyes PERRL General Eye ED: Negative for pale conjunctiva or scleral icterus Neck no lymphadenopathy, supple and no JVD General: Negative for tenderness Resp normal respiratory effort and clear to auscultation bilaterally Effort and Inspection: Negative for retractions Auscultation: Negative for rales or rhonchi Cardio regular rate, regular rhythm, S1 normal heart sound, S2 normal heart sound and no murmurs Rate: Negative for bradycardia Rhythm: Negative for abnormal rhythm GI normal to inspection, nondistended, normoactive bowel sounds, non-tender, non-distended and no masses Inspection: Negative for abdominal distention Auscultation: normoactive bowel sounds Palpation: soft; Negative for tender, guarding or mass Back/Spine no CVA tenderness General Back: Negative for CVA tenderness Cervical Spine: Negative for cervical spine tenderness Thoracic Spine / Upper Back: Negative for thoracic spinal tenderness Lumbar Spine / Lower Back: Negative for lumbar spinal tenderness Extremity normal to inspection Extremity Narrative: Bilateral lower extremity 2+ pitting edema. General Extremety ED: Negative for tenderness Neuro oriented x3 Sensorium / Orientation: alert; Negative for orientation impaired, lethargic or stuporous Motor Exam: strength 5/5 throughout Psych mental status grossly normal Appearance: Negative for unkempt Attitude: No agitated Mood & Affect: Negative for depressed, anxious or tearful Skin No no rashes or lesions noted and no wounds Lesions: No lesion noted Rashes: rashes noted Wounds: wounds noted MDM MDM MDM Narrative Medical decision making narrative: 56-year-old hypotensive with bilateral lower extremity pitting edema. She also has a rash. She undergo a septic work-up. Lab Data Attestation: I reviewed the patient's lab results. Lab results narrative: CBC showed a white count 9.6. H&H 9.1 and 29. Platelets 251. PT 15 INR 1.3 PTT 33. Electrolytes show a gap of 4 BUN and creatinine at 19 and 0.9. Glucose of 105. Liver enzymes unremarkable alkaline phosphatase 228. Lactic acid normal 1.7. Urinalysis shows 10-25 white blood cells. However no nitrites or bacteria. A culture was sent. Labs: Laboratory Results - last 24 hr 04/02/22 04/02/22 04/02/22 12:49 12:49 12:49 WBC 9.6 RBC 3.05 L Hgb 9.1 L Hct 29.2 L MCV 95.7 MCH 29.8 MCHC 31.2 L RDW Std Deviation 66.4 H RDW Coeff of Arnold 19.3 H Plt Count 251 MPV 10.9 Immature Gran % (Auto) 0.400 Neut % (Auto) 70.5 H Lymph % (Auto) 18.6 L [place]eman % (Auto) 7.0 Eos % (Auto) 2.2 Baso % (Auto) 1.3 H Absolute Neuts (auto) 6.8 Absolute Lymphs (auto) 1.78 Nucleated RBC % 0 Hypochromasia 2+ Anisocytosis 2+ PT 15.8 H INR 1.3 APTT 33.5 Sodium 141 Potassium 3.9 Chloride 110 H Carbon Dioxide 27.0 Anion Gap 4 L BUN 19 H Creatinine 0.94 Estim Creat Clear Calc 65.81 Est GFR (MDRD) Af Amer 79 Est GFR (MDRD) Non-Af 65 BUN/Creatinine Ratio 20.2 H Glucose 105 Lactic Acid Calcium 7.8 L Total Bilirubin 0.90 AST 88 H ALT 29 Alkaline Phosphatase 228 H Total Protein 6.6 Albumin 1.7 L Globulin 4.9 H Albumin/Globulin Ratio 0.3 L Urine Color Urine Clarity Urine pH Ur Specific [place] Urine Protein Urine Glucose (UA) Urine Ketones Urine Occult Blood Urine Nitrite Urine Bilirubin Urine Urobilinogen Ur Leukocyte Esterase Urine RBC Urine WBC Ur Squamous Epith Cells Urine Bacteria Urine Mucus 04/02/22 04/02/22 12:49 15:07 WBC RBC Hgb Hct MCV MCH MCHC RDW Std Deviation RDW Coeff of Arnold Plt Count MPV Immature Gran % (Auto) Neut % (Auto) Lymph % (Auto) [place] % (Auto) Eos % (Auto) Baso % (Auto) Absolute Neuts (auto) Absolute Lymphs (auto) Nucleated RBC % Hypochromasia Anisocytosis PT INR APTT Sodium Potassium Chloride Carbon Dioxide Anion Gap BUN Creatinine Estim Creat Clear Calc Est GFR (MDRD) Af Amer Est GFR (MDRD) Non-Af BUN/Creatinine Ratio Glucose Lactic Acid 1.7 Calcium Total Bilirubin AST ALT Alkaline Phosphatase Total Protein Albumin Globulin Albumin/Globulin Ratio Urine Color Yellow Urine Clarity Clear Urine pH 8.0 Ur Specific [place] 1.010 Urine Protein Negative Urine Glucose (UA) Normal Urine Ketones Negative Urine Occult Blood 10 H Urine Nitrite Negative Urine Bilirubin Negative Urine Urobilinogen Normal Ur Leukocyte Esterase 500 H Urine RBC 0-5 SEEN Urine WBC 10-25 SEEN Ur Squamous Epith Cells 0-5 SEEN Urine Bacteria 0 SEEN Urine Mucus 0 SEEN Radiography Chest X-Ray - ED: 1 View, Read by ED Physician, Read by Radiologist, Heart, Lungs, Mediastinum, Bony Structures, Chronic Changes and CHF Diagnostic Testing: Clinical Impression(s) from Imaging Studies Chest X-Ray 04/02/22 13:45 IMPRESSION: Findings suggestive of a mild degree of CHF with right basilar atelectasis. Electronically Signed: Fransisco Henriquez MD at 14:00 EDT , Discharge Plan Triage Chief Complaint: Edema ED Provider: Cam Green Dx/Rx/DC Orders Prescriptions: No Action clonidine HCl 0.2 MG tablet 0.2 mg PO DAILY Label Comments: blood pressure fluoxetine 10 mg Capsule 10 mg PO PRN PRN (Reason: depression) potassium chloride [Klor-Con M20] 20 mEq tablet,ER particles/crystals 20 meq PO TID furosemide 40 mg Tablet 40 mg PO DAILY Qty: 30 0RF pantoprazole [Protonix] 40 mg tablet,delayed release (DR/EC) 40 mg PO DAILY Qty: 30 1RF gabapentin 300 mg capsule 300 mg PO TID Qty: 90 0RF cephalexin 500 mg capsule 500 mg PO TID Qty: 21 0RF magnesium oxide 400 mg (241.3 mg magnesium) tablet 400 mg PO BID Label Comments: TAKE 1 TABLET BY MOUTH TWICE A DAY Primary Care Provider: Fritz Villatoro Referrals: Fritz Villatoro DO [Primary Care Provider] -
[2022-04-02 13:03] LABS: Absolute Lymphocyte Count 1.78 X10^3/uL (0.83-4.51); Absolute Neutrophil Count 6.8 X10^3/uL (2.0-7.7); Basophil# 0.12 X10^3/uL; Basophil% 1.3 % (0-1); Eosinophil# 0.21 X10^3/uL; Eosinophils% 2.2 % (0-5); Hematocrit 29.2 % (37-47); Hemoglobin 9.1 g/dL (12.0-15.0); Lymphocyte # 1.78 X10^3/ul (0.83-4.51); Lymphocyte % 18.6 % (19-41); Mean Corp Hgb Conc 31.2 g/dL (32-36); Mean Corpuscular Hgb 29.8 pg (27.0-32.0); Mean Corpuscular Volume 95.7 fL (81-99); Mean Platelet Vol. 10.9 fl (6.2-12.0); Monocyte# 0.67 X10^3/uL; NRBC Flagged by Analyzer 0 % (0-5); Neutrophil # 6.77 X10^3/uL (2.7-7.7); Neutrophil % 70.5 % (47-70); POSITIVE MORPHOLOGY YES; Platelet Count 251 K/mm3 (150-450); RBC Distribution Width CV 19.3 % (11.6-14.6); RBC Distribution Width SD 66.4 fl (35.1-43.9); Red Blood Count 3.05 M/mm3 (4.2-5.4); White Blood Count 9.6 K/mm3 (4.4-11.0)
[2022-04-02 13:14] LABS: Differential Indicated SCAN CRITERIA MET
[2022-04-02 13:20] LABS: International Normalized Ratio 1.3; Prothrombin Time (Protime)PT. 15.8 SECONDS (11.7-14.9)
[2022-04-02 13:21] LABS: ALB/GLOB Ratio 0.3 RATIO (0.9-2.4); AST(SGOT) 88 U/L (15-37); Alanine Aminotransfer ALT/SGPT 29 U/L (13-56); Albumin, Serum 1.7 g/dL (3.2-5.0); Alkaline Phosphatase 228 U/L (45-117); Anion Gap 4 (5-15); BUN 19 mg/dL (7-18); BUN/Creat Ratio 20.2 RATIO (10-20); Calcium,Total 7.8 mg/dL (8.5-10.1); Chloride 110 mmol/L (98-107); Creatinine, Serum 0.94 mg/dL (0.55-1.02); EST Glomerular Filtration Rate 65 mL/min (>60); Est Glom Filt Rate - Afr Amer 79 mL/min (>60); Estimated Creatinine Clearance 65.81 ml/min; Globulin 4.9 g/dL (2.2-4.2); Glucose 105 mg/dL (74-106); Partial Thromboplast Time 33.5 Seconds (24.1-36.2); Potassium 3.9 mmol/L (3.5-5.1); Protein, Total 6.6 g/dL (6.4-8.2); Sodium Level 141 mmol/L (136-145)
[2022-04-02 13:28] LABS: Lactic Acid 1.7 mmol/L (0.4-1.9)
[2022-04-02 13:34] LABS: Anisocytosis 2+; Hypochromasia 2+
--- NOTE | 2022-04-02 13:45 | RAD_ITS ---
STUDY: X-RAY CHEST REASON FOR EXAM: Female, 56 years old. Hypotension . Shortness of breath. TECHNIQUE: Single AP portable view of the chest. COMPARISON: Comparison is made with prior chest radiograph dated 04/17/2021. FINDINGS: EKG electrodes are seen. There is evidence of a vascular congestion and a mild degree of CHF. Increased markings at the right lung base suggestive of superimposed atelectasis. There is no demonstrated pleural abnormality. Normal size heart. Normal mediastinum and ishmael. Normal visualized pulmonary arteries. Normal visualized aortic arch and descending thoracic aorta. Normal visualized thoracic spine. Normal visualized ribs, clavicles, and shoulders. There is no demonstrated abnormality of the visualized soft tissue structures of the upper abdomen. RAD/Chest 1 View (Portable) IMPRESSION: Findings suggestive of a mild degree of CHF with right basilar atelectasis. Electronically Signed: Fransisco Henriquez MD at 14:00 EDT ,
--- NOTE | 2022-04-02 14:08 | ED.RN ---
PT ASSISTED UP TO BATHROOM TO GIVE URINE SAMPLE. PT EDUCATED ON CLEAN CATCH PROCESS VERBALIZES UNDERSTANDING. PRIVACY GIVEN. PT RINGS BATHROOM LIGHT. REPORTS, I FORGOT TO PEE IN THE CUP. PT ASSISTED BACK TO ROOM, MONITOR.
[2022-04-02 15:13] LABS: Bacteria 0 SEEN /hpf (None Seen); Mucous, Urine 0 SEEN /hpf (<or=2+)
[2022-04-02 15:22] LABS: Color, Urine Yellow (Yellow); Glucose, Dipstick Normal (Normal); Ketone-Dipstick Negative (Negative); Leukocyte Esterase-Dipstick 500 /ul (Negative); Nitrite-Dipstick Negative (Negative); Occult Blood-Urine 10 /ul (Negative); Protein-Dipstick Negative (Negative); Urine Bilirubin Dipstick Negative (Negative); Urine Clarity Clear (Clear); Urine Urobilinogen Normal (Normal)
[2022-04-02 15:25] LABS: Red Blood Cells-Urine 0-5 SEEN /hpf (0-5); Squamous Epithelial Cells - UA 0-5 SEEN /hpf (5-10); White Blood Cells 10-25 SEEN /hpf (0-5)
[2022-04-02] MEDS: Furosemide 40 MG/4 ML Vial IV (17:21)
--- NOTE | 2022-04-02 17:21 | ED.RN ---
Addendum entered by Leia Farias 04/02/22 17:22: DR. PERRY INFORMED. Original Note: PUREWICK PLACED FOR PT DUE TO RECEIVING LASIX IVP. PT ABDOMEN AND PELVIS AREA REDDENED AND TENDER TO TOUCH. YEAST SMELL FROM GROIN. PT REPORTS DIFFICULTY CLEANING DOWN THERE AND FEELING SWOLLEN.
--- NOTE | 2022-04-02 17:39 | PCM.HP.STD ---
Documented by User: Janny Tejeda NP, [employer] 04/02/22 17:58 HPI - General General Date of Admission: 04/02/22 Date of Service: 04/02/22 Chief Complaint: Increased swelling. HPI Narrative NU BASURTO, is a 56 F who presents to the emergency room due to increased lower extremity swelling and shortness of breath. Patient states she was recently started on Lasix which has not improved her symptoms. She states her weight fluctuates up and down however denies known significant weight loss. Denies chest pain. States she is having difficulty doing her daily activities due to shortness of breath. She reports recent admission for left foot wound/cellulitis. She denies history of CHF. Patient reports generalized scabbing and itching. States she has had fleas in her house in the past. She has a past medical history of alcoholic fatty liver disease, hypertension, GERD, anxiety/depression. [facility] Medical History Acute post-gastric reduction surgery (APGARS) neuropathy Former smoker Hepatitis Hyperlipidemia Hypertension Lactic acidosis TGA (transient global amnesia) Home Medications clonidine HCl 0.2 mg tablet 0.2 mg PO DAILY blood pressure 09/04/14 [History Last Taken 04/02/22] fluoxetine 10 mg capsule 10 mg PO PRN PRN depression 01/19/21 [History Last Taken 1 Week Ago ~03/26/22] potassium chloride 20 mEq tablet,extended release(part/cryst) (Klor-Con M) 20 meq PO TID supplement 01/23/22 [History Last Taken 04/02/22] cephalexin 500 mg capsule 500 mg PO TID foot 04/02/22 [History Last Taken 04/01/22] furosemide 40 mg tablet 40 mg PO DAILY fluid 04/02/22 [History Last Taken 1 Week Ago ~03/26/22] gabapentin 300 mg capsule 300 mg PO TID nerve pain 04/02/22 [History Last Taken 04/02/22] magnesium oxide 400 mg (241.3 mg magnesium) tablet 400 mg PO BID supplement 04/02/22 [History Last Taken 04/02/22] pantoprazole 40 mg tablet,delayed release (Protonix) 40 mg PO DAILY stomach 04/02/22 [History Last Taken 04/02/22] Allergy/AdvReac Type Severity Reaction Status Date / Time bee venom protein (honey bee) Allergy Swelling Verified 04/02/22 12:02 Family History (Reviewed 04/02/22 @ 17:49 by Janny Tejeda [employer], [employer]) Father Hypertension Mother Hypertension Surgical History Gastric bypass status for obesity History of total knee arthroplasty Previous back surgery Social History household members: spouse housing: house Smoking Status: Former smoker alcohol intake: current substance use type: does not use ROS Constitutional Constitutional: Reports fatigue and weakness; Denies change in weight, chills or fever(s) Cardiovascular Cardiovascular: Reports edema; Denies chest pain, lightheadedness, palpitations or syncope Respiratory/Chest Respiratory/Chest: Reports dyspnea; Denies cough or wheezing Gastrointestinal Gastrointestinal: Denies abdominal pain, constipation, diarrhea, nausea or vomiting Genitourinary Genitourinary: Denies burning urination, difficulty urinating, dysuria, hematuria, urinary frequency, urinary incontinence or urinary urgency Musculoskeletal Musculoskeletal: Denies back pain, joint pain or muscle weakness Integumentary Integumentary: Reports other Details: Lower abdomen excoriation. Generalized scabbing with pruritus. ; Denies erythema, lesions or wounds Neurologic Neurologic: Denies abnormal speech, confusion, dizziness, focal weakness, numbness, paresthesias, seizure-like activity or syncope Psychiatric Psychiatric: Denies anxiety or depression Hematologic/Lymphatic Hematologic/Lymphatic: Denies anemia, easy bleeding or easy bruising Allergic/Immunologic Allergic/Immunologic: Denies hives or asthma Vital Signs Vital Signs Vital Signs: 04/02/22 11:51 04/02/22 11:52 04/02/22 11:56 Temperature 98.1 F 98.1 F Temperature Source Temporal Temporal Pulse Rate 88 88 Respiratory Rate 16 16 Respiratory Effort Normal Non-Labored Short of Breath Respiratory Pattern Normal Blood Pressure 95/76 95/76 Blood Pressure Mean 82 82 Pulse Ox 95 95 Oxygen Delivery Method Room Air Room Air 04/02/22 12:44 04/02/22 12:47 04/02/22 12:47 Temperature 98.3 F 98.3 F Temperature Source Oral Oral Pulse Rate 77 Respiratory Rate 13 Respiratory Effort Respiratory Pattern Blood Pressure 103/50 L Blood Pressure Mean 67 Pulse Ox 97 99 Oxygen Delivery Method Room Air Room Air 04/02/22 12:53 04/02/22 13:20 04/02/22 14:06 Temperature 98.3 F 97.0 F L 97.6 F L Temperature Source Oral Temporal Oral Pulse Rate 73 67 71 Respiratory Rate 15 14 16 Respiratory Effort Respiratory Pattern Blood Pressure 103/50 L 108/64 113/80 Blood Pressure Mean 67 78 91 Pulse Ox 97 98 98 Oxygen Delivery Method Room Air Room Air Room Air 04/02/22 14:06 04/02/22 14:06 04/02/22 16:43 Temperature 97.6 F L 97.6 F L Temperature Source Oral Oral Pulse Rate 71 Respiratory Rate 16 Respiratory Effort Respiratory Pattern Blood Pressure 113/80 99/58 L Blood Pressure Mean 91 71 Pulse Ox 98 Oxygen Delivery Method Room Air 04/02/22 17:23 04/02/22 15:08 04/02/22 15:08 Temperature 97.6 F L 97.7 F L 97.7 F L Temperature Source Temporal Oral Oral Pulse Rate 69 66 Respiratory Rate 12 13 Respiratory Effort Respiratory Pattern Blood Pressure 92/77 109/47 L Blood Pressure Mean 82 67 Pulse Ox 94 99 Oxygen Delivery Method Room Air Room Air 04/02/22 15:09 04/02/22 16:31 Temperature 97.7 F L 97.6 F L Temperature Source Oral Oral Pulse Rate 68 68 Respiratory Rate 10 L 16 Respiratory Effort Respiratory Pattern Blood Pressure 109/47 L 74/58 L Blood Pressure Mean 67 63 Pulse Ox 99 100 Oxygen Delivery Method Room Air Room Air Weight Weight: 235 lb Body Mass Index (BMI) 35.7 Physical Exam Const alert and oriented x3 HEENT normocephalic and moist oral mucous membranes Eyes PERRL, EOMs intact bilaterally and conjunctivae normal Neck no lymphadenopathy Resp normal respiratory effort and clear to auscultation bilaterally Cardio regular rate, regular rhythm and no murmurs Peripheral Pulses: pulses 2+ throughout GI normal to inspection, nondistended, normoactive bowel sounds, non-tender and non-distended Extremity normal to inspection General Extremity: edema bilateral lower extremity Details: severe Skin no rashes or lesions noted Skin Narrative: Generalized scabbing. Lower abdomen/pelvis excoriation with yeast appearance. Lesions: no lesions Rashes: no rashes Trauma: no lacerations or abrasions Neuro CN's II-XII intact bilaterally, no focal motor deficits, no sensory deficits noted and deep tendon reflexes 2+ bilaterally Psych mental status grossly normal and affect normal Results Lab / Micro Data Result Diagrams: 04/02/22 12:49 04/02/22 12:49 Labs: Laboratory Results - last 24 hr 04/02/22 12:49: WBC 9.6, RBC 3.05 L, Hgb 9.1 L, Hct 29.2 L, MCV 95.7, MCH 29.8, MCHC 31.2 L, RDW Std Deviation 66.4 H, RDW Coeff of Arnold 19.3 H, Plt Count 251, MPV 10.9, Immature Gran % (Auto) 0.400, Neut % (Auto) 70.5 H, Lymph % (Auto) 18.6 L, [place] % (Auto) 7.0, Eos % (Auto) 2.2, Baso % (Auto) 1.3 H, Absolute Neuts (auto) 6.8, Absolute Lymphs (auto) 1.78, Nucleated RBC % 0, Hypochromasia 2+, Anisocytosis 2+ 04/02/22 12:49: PT 15.8 H, INR 1.3, APTT 33.5 04/02/22 12:49: Sodium 141, Potassium 3.9, Chloride 110 H, Carbon Dioxide 27.0, Anion Gap 4 L, BUN 19 H, Creatinine 0.94, Estim Creat Clear Calc 65.81, Est GFR (MDRD) Af Amer 79, Est GFR (MDRD) Non-Af 65, BUN/Creatinine Ratio 20.2 H, Glucose 105, Calcium 7.8 L, Total Bilirubin 0.90, AST 88 H, ALT 29, Alkaline Phosphatase 228 H, Total Protein 6.6, Albumin 1.7 L, Globulin 4.9 H, Albumin/Globulin Ratio 0.3 L 04/02/22 12:49: Lactic Acid 1.7 04/02/22 15:07: Urine Color Yellow, Urine Clarity Clear, Urine pH 8.0, Ur Specific [place] 1.010, Urine Protein Negative, Urine Glucose (UA) Normal, Urine Ketones Negative, Urine Occult Blood 10 H, Urine Nitrite Negative, Urine Bilirubin Negative, Urine Urobilinogen Normal, Ur Leukocyte Esterase 500 H, Urine RBC 0-5 SEEN, Urine WBC 10-25 SEEN, Ur Squamous Epith Cells 0-5 SEEN, Urine Bacteria 0 SEEN, Urine Mucus 0 SEEN Radiology Impression Chest X-Ray 04/02/22 13:45 IMPRESSION: Findings suggestive of a mild degree of CHF with right basilar atelectasis. Electronically Signed: Fransisco Henriquez MD at 14:00 EDT , Assessment & Plan Assessment/Plan (1) Anasarca: (2) New onset of congestive heart failure: PLAN: Plan 1. New onset CHF, unclear subtype with anasarca-chest x-ray with CHF. Significant lower extremity swelling. BNP ordered. Lasix drip. Strict I&O. Daily weight. Kyle wraps bilateral lower extremities. Obtain echocardiogram. 2. History of alcoholic fatty liver disease-following with GI. States she is no longer on meds. Denies recent alcohol use. 3. Hypertension-hold clonidine due to borderline low blood pressure on admission. 4. GERD-continue PPI. 5. Anxiety/depression-on fluoxetine. 6. Lower abdomen candidiasis-topical nystatin. DVT prophylaxis- Lovenox sc This patient was seen by GISELLE Medina under the supervision of Dr. Mercado. Time spent examining patient, reviewing data and subsequent management of care: 25 Documented by User: Dr. Fritz Mercado, 04/02/22 19:01 HPI - General General Date of Admission: 04/02/22 [facility] Medical History Acute post-gastric reduction surgery (APGARS) neuropathy Former smoker Hepatitis Hyperlipidemia Hypertension Lactic acidosis TGA (transient global amnesia) Home Medications clonidine HCl 0.2 mg tablet 0.2 mg PO DAILY blood pressure 09/04/14 [History Last Taken 04/02/22] fluoxetine 10 mg capsule 10 mg PO PRN PRN depression 01/19/21 [History Last Taken 1 Week Ago ~03/26/22] potassium chloride 20 mEq tablet,extended release(part/cryst) (Klor-Con M) 20 meq PO TID supplement 01/23/22 [History Last Taken 04/02/22] cephalexin 500 mg capsule 500 mg PO TID foot 04/02/22 [History Last Taken 04/01/22] furosemide 40 mg tablet 40 mg PO DAILY fluid 04/02/22 [History Last Taken 1 Week Ago ~03/26/22] gabapentin 300 mg capsule 300 mg PO TID nerve pain 04/02/22 [History Last Taken 04/02/22] magnesium oxide 400 mg (241.3 mg magnesium) tablet 400 mg PO BID supplement 04/02/22 [History Last Taken 04/02/22] pantoprazole 40 mg tablet,delayed release (Protonix) 40 mg PO DAILY stomach 04/02/22 [History Last Taken 04/02/22] Allergy/AdvReac Type Severity Reaction Status Date / Time bee venom protein (honey bee) Allergy Swelling Verified 04/02/22 12:02 Family History (Reviewed 04/02/22 @ 17:49 by Janny Tejeda [employer], [employer]) Father Hypertension Mother Hypertension Surgical History (Reviewed 04/02/22 @ 17:49 by Janny Tejeda [employer], DES[employer]) Gastric bypass status for obesity History of total knee arthroplasty Previous back surgery Social History (Reviewed 04/02/22 @ 17:50 by Janny Tejeda [employer], DESIGN [employer]) household members: spouse housing: house Smoking Status: Former smoker alcohol intake: current substance use type: does not use Results Lab / Micro Data Result Diagrams: 04/02/22 12:49 04/02/22 12:49 Assessment & Plan Assessment/Plan (1) Anasarca: (2) New onset of congestive heart failure: Charges/Coding Addendum Addendum: Patient was seen and examined independently of Janny Tejeda today, she came to the emergency room at [facility] with complaints of increased swelling over both legs-patient was vague about the timeframe of the swelling, it appears that she has been having edema in her legs over the last several days. Patient states that she ran out of a diuretic that she takes at home and has been out of this for the last few days. Patient has no complaints of any shortness of breath at rest, she is does states she gets short of breath on exertion however. On examination she appeared older than her stated age, she does not appear to be in any distress. Patient is morbidly obese. Vital signs as documented. Skin warm and dry, under the patient's panniculus, she has excoriated reddened skin areas. Neck without JVD, thyroid appears normal, trachea is midline, neck is supple. Lungs clear, normal air movement was noted. Heart exam notable for regular rhythm, normal sounds and absence of murmurs, rubs or gallops. Abdomen unremarkable and without evidence of organomegaly, masses, or abdominal aortic enlargement, bowel sounds are present in all 4 quadrants, no abdominal tenderness was noted. Extremities-there is generalized edema noted over both lower legs, no cyanosis was noted, no clubbing was noted. Neuro: Cranial nerves II through XII are grossly intact, no focal motor deficits were noted, sensation to light touch and pinprick is intact, motor exam 5/5 throughout. Psych: Patient is alert and oriented x3, she does not appear anxious or depressed, she does not appear agitated. Chest x-ray obtained in the emergency room shows evidence of congestive heart failure, revealed a normal white blood cell count, hemoglobin was low at 9.1, urinalysis showed 10-25 WBCs, 0-5 RBCs, and no bacteria. Assessment: #1 congestive heart [id number] unknown at this time, patient will be admitted to PCU, she will be placed on IV Lasix, echocardiogram will be obtained, I will check a troponin. #2 morbid obesity-complicates care, management, recovery, and prognosis #3 mycotic skin infection over abdominal skin fold areas-patient was placed on Mycolog cream twice daily #4 hypotension-patient had a low blood pressure in the emergency room, blood pressure will be monitored on the floor, at this time, patient's blood pressure is 96/57, patient is asymptomatic. #5 essential hypertension by history-patient is on clonidine, this will be held #6 chronic depression-patient is on Prozac, this will be continued in the hospital #7 right leg neuropathy-patient has chronic right leg neuropathy, she is taking gabapentin 300 mg 3 times daily, I will add on [place] 5/325 1 every 4 hours as needed pain #8 GERD-patient is on Protonix, this will be continued here I have reviewed Janny Tejeda's history and physical including her medical assessment and plan of care and with the above additions endorse it. Total clinical time spent by myself addressing the patient's medical issues, reviewing the data, and collaborating with patient's care team: 47 minutes Visit Charges Inpatient E&M: 97258 Init Hosp L3
--- NOTE | 2022-04-02 18:25 | ECHOD_ITS ---
Reason For Study: CHF Procedure This was a 2D Doppler, Color Flow transthoracic echocardiogram. Exam performed portable in patient room. Left Ventricle Normal LV size. The estimated ejection fraction is 60 %. Normal diastology for age. No regional wall motion abnormalities noted. Right Ventricle Normal RV size. Normal systolic function. Atria Normal left atrium. Normal right atrium. No doppler evidence for ASD. Mitral Valve There is no mitral valve stenosis. No mitral valve insufficiency. Tricuspid Valve There is no tricuspid stenosis. Trivial tricuspid valve insufficiency. Pulmonary artery systolic pressure is 30 mmHg. Aortic Valve Trisinus/trileaflet aortic valve. There is no aortic stenosis. No aortic valve insufficiency. Pulmonic Valve There is no pulmonic valvular stenosis. No pulmonic valve insufficiency. Great Vessels Normal aortic root. Pericardium/Pleural No pericardial effusion. MMode/2D Measurements & Calculations LVIDd: 5.2 cm IVSd: 0.98 cm Ao root diam: 3.8 cm LVIDs: 3.5 cm LVPWd: 0.75 cm RVDd: 2.9 cm FS: 31.3 % LAV(MOD-sp4): 40.8 ml LVAd ap4: 26.6 cm2 SV(MOD-sp4): 44.4 ml LVLd ap4: 7.8 cm EDV(MOD-sp4): 74.9 ml EDV(sp4-el): 77.2 ml LVAs ap4: 14.5 cm2 LVLs ap4: 6.3 cm ESV(MOD-sp4): 30.5 ml ESV(sp4-el): 28.4 ml EF(MOD-sp4): 59.2 % EF(sp4-el): 63.2 % SV(sp4-el): 48.8 ml LA A4 area: 15.7 cm2 LA dimension(2D): 3.9 cm RA A4 area: 13.6 cm2 Time Measurements MV dec time: 0.25 sec Doppler Measurements & Calculations MV E max gerhard: 72.3 cm/sec Lat Peak E' Gerhard: 12.1 cm/sec Med Peak E' Gerhard: 7.3 cm/sec MV A max gerhard: 60.1 cm/sec E/E' lat: 6.0 E/E' med: 9.9 MV E/A: 1.2 MV V2 max: 89.7 cm/sec Ao V2 max: 193.5 cm/sec MV max P.2 mmHg MV dec slope: 314.4 cm/sec2 Ao max P.1 mmHg MV V2 mean: 62.2 cm/sec Ao V2 mean: 127.3 cm/sec MV mean P.7 mmHg Ao mean P.6 mmHg MV V2 VTI: 25.4 cm Ao V2 VTI: 34.7 cm LV V1 max: 154.8 cm/sec PA V2 max: 108.0 cm/sec TR max gerhard: 233.6 cm/sec LV V1 max P.6 mmHg TR max P.8 mmHg LV V1 mean P.3 mmHg LV V1 mean: 108.0 cm/sec LV V1 VTI: 29.7 cm ECHO/Echo Complete Interpretation Summary The estimated ejection fraction is 60 %. No significant valvular abnormalities Ordering Physician: Fritz Mercado Referring Physician: Fritz Villatoro Performed By: Kanwal Burton RCS
[2022-04-02 18:42] LABS: BNP,B-Type NATRIURETIC PEPTIDE 233.2 pg/mL (0-100)
[2022-04-02] MEDS: Furosemide 500 MG in Empty Viaflex 50 mL 1 EACH CONT INF (19:07)
[2022-04-02] MEDS: 0.9% Saline Lock 10 ML Syringe IV (19:07)
[2022-04-02 20:01] LABS: Troponin-I HS 4 pg/mL (3.0-54.0)
[2022-04-02] MEDS: HYDROcodone Bitartrate/Apap 5/325 Tablet PO (20:05)
[2022-04-02] MEDS: Potassium Chloride Oral Tablet 20 MEQ PO (21:32)
[2022-04-02] MEDS: Gabapentin 300 MG Capsule PO (21:32)
[2022-04-02] MEDS: Nystatin/Triamcin Cream Tube 1 APPLIC TOPICAL (21:32)
[2022-04-02] MEDS: Heparin Injection (Vial) 5,000 UNIT/ML VIAL 5000 UNIT SC (21:32)
[2022-04-03] VITALS (10 sets, daily range): BP systolic 110–112; BP diastolic 60–66; PULSE 78–92; RESP 16–18; TEMP 36.6–36.8; O2SAT 95–96
[2022-04-03] MEDS: Menthol/Lanolin/Calamine/Znox 113 GM Tube 1 APPLIC TOPICAL ×3 (00:05→21:22)
[2022-04-03] MEDS: HYDROcodone Bitartrate/Apap 5/325 Tablet PO ×3 (00:14→21:22)
--- NOTE | 2022-04-03 01:30 | NURSING ---
pt c/o feeling as if she is unable to empty her bladder and is uncomfortable, call placed to susanne, roe order obtained, placed and 1100ml out right away
[2022-04-03 06:00] LABS: Absolute Lymphocyte Count 1.95 X10^3/uL (0.83-4.51); Absolute Neutrophil Count 6.7 X10^3/uL (2.0-7.7); Basophil# 0.11 X10^3/uL; Basophil% 1.1 % (0-1); Eosinophil# 0.12 X10^3/uL; Eosinophils% 1.3 % (0-5); Hematocrit 29.3 % (37-47); Hemoglobin 9.3 g/dL (12.0-15.0); Lymphocyte # 1.95 X10^3/ul (0.83-4.51); Lymphocyte % 20.3 % (19-41); Mean Corp Hgb Conc 31.7 g/dL (32-36); Mean Corpuscular Hgb 29.2 pg (27.0-32.0); Mean Corpuscular Volume 91.8 fL (81-99); Mean Platelet Vol. 10.8 fl (6.2-12.0); Monocyte# 0.66 X10^3/uL; Monocyte% 6.9 % (0-10); NRBC Flagged by Analyzer 0 % (0-5); Neutrophil # 6.73 X10^3/uL (2.7-7.7); Neutrophil % 70.1 % (47-70); Platelet Count 260 K/mm3 (150-450); RBC Distribution Width CV 19.4 % (11.6-14.6); RBC Distribution Width SD 64.5 fl (35.1-43.9); Red Blood Count 3.19 M/mm3 (4.2-5.4); White Blood Count 9.6 K/mm3 (4.4-11.0)
[2022-04-03] MEDS: Gabapentin 300 MG Capsule PO ×3 (06:21→21:23)
[2022-04-03 06:49] LABS: Anion Gap 7 (5-15); BUN 15 mg/dL (7-18); BUN/Creat Ratio 17.5 RATIO (10-20); Calcium,Total 7.8 mg/dL (8.5-10.1); Chloride 105 mmol/L (98-107); Creatinine, Serum 0.86 mg/dL (0.55-1.02); EST Glomerular Filtration Rate 72 mL/min (>60); Est Glom Filt Rate - Afr Amer 88 mL/min (>60); Estimated Creatinine Clearance 71.93 ml/min; Glucose 94 mg/dL (74-106); Iron 25 ug/dL (50-170); Iron Binding Capacity,Total 170 ug/dL (250-450); PERCENT IRON SATURATION 14.7 % (15.0-55.0); Potassium 3.6 mmol/L (3.5-5.1); Sodium Level 141 mmol/L (136-145)
--- NOTE | 2022-04-03 08:06 | PCM.PN.HOSP ---
Subjective Subjective At home, patient's son is legs got more swollen to the point where she was unable to walk around. Objective Data Objective Data Vital Signs: Vital Signs Temp Pulse Resp BP Pulse Ox O2 Del Method 36.6 C 81 16 110/66 96 Room Air 04/03/22 04:39 04/03/22 07:00 04/03/22 04:39 04/03/22 04:39 04/03/22 04:39 04/03/22 04:39 Oxygen Delivery Method Room Air Weight: 122.8 kg Body Mass Index (BMI) 41.1 Intake & Output: Intake and Output for Last 24 Hours 04/01/22 04/02/22 04/03/22 23:59 23:59 23:59 Intake Total 520 / 520 400 / 400 Output Total 2050 / 2150 2500 / 2500 Balance -1530 / -1630 -2100 / -2100 Lab / Micro Data Result Diagrams: 04/03/22 05:17 04/03/22 05:17 Labs: Laboratory Results - last 24 hr 04/02/22 12:49: WBC 9.6, RBC 3.05 L, Hgb 9.1 L, Hct 29.2 L, MCV 95.7, MCH 29.8, MCHC 31.2 L, RDW Std Deviation 66.4 H, RDW Coeff of Arnold 19.3 H, Plt Count 251, MPV 10.9, Immature Gran % (Auto) 0.400, Neut % (Auto) 70.5 H, Lymph % (Auto) 18.6 L, [place] % (Auto) 7.0, Eos % (Auto) 2.2, Baso % (Auto) 1.3 H, Absolute Neuts (auto) 6.8, Absolute Lymphs (auto) 1.78, Nucleated RBC % 0, Hypochromasia 2+, Anisocytosis 2+ 04/02/22 12:49: PT 15.8 H, INR 1.3, APTT 33.5 04/02/22 12:49: Sodium 141, Potassium 3.9, Chloride 110 H, Carbon Dioxide 27.0, Anion Gap 4 L, BUN 19 H, Creatinine 0.94, Estim Creat Clear Calc 65.81, Est GFR (MDRD) Af Amer 79, Est GFR (MDRD) Non-Af 65, BUN/Creatinine Ratio 20.2 H, Glucose 105, Calcium 7.8 L, Total Bilirubin 0.90, AST 88 H, ALT 29, Alkaline Phosphatase 228 H, Total Protein 6.6, Albumin 1.7 L, Globulin 4.9 H, Albumin/Globulin Ratio 0.3 L 04/02/22 12:49: Lactic Acid 1.7 04/02/22 12:49: B-Natriuretic Peptide 233.2 H 04/02/22 15:07: Urine Color Yellow, Urine Clarity Clear, Urine pH 8.0, Ur Specific [place] 1.010, Urine Protein Negative, Urine Glucose (UA) Normal, Urine Ketones Negative, Urine Occult Blood 10 H, Urine Nitrite Negative, Urine Bilirubin Negative, Urine Urobilinogen Normal, Ur Leukocyte Esterase 500 H, Urine RBC 0-5 SEEN, Urine WBC 10-25 SEEN, Ur Squamous Epith Cells 0-5 SEEN, Urine Bacteria 0 SEEN, Urine Mucus 0 SEEN 04/02/22 18:45: Troponin I High Sens 4 04/03/22 05:17: WBC 9.6, RBC 3.19 L, Hgb 9.3 L, Hct 29.3 L, MCV 91.8, MCH 29.2, MCHC 31.7 L, RDW Std Deviation 64.5 H, RDW Coeff of Arnold 19.4 H, Plt Count 260, MPV 10.8, Immature Gran % (Auto) 0.300, Neut % (Auto) 70.1 H, Lymph % (Auto) 20.3, [place] % (Auto) 6.9, Eos % (Auto) 1.3, Baso % (Auto) 1.1 H, Absolute Neuts (auto) 6.7, Absolute Lymphs (auto) 1.95, Nucleated RBC % 0 04/03/22 05:17: Sodium 141, Potassium 3.6, Chloride 105, Carbon Dioxide 29.0, Anion Gap 7, BUN 15, Creatinine 0.86, Estim Creat Clear Calc 71.93, Est GFR (MDRD) Af Amer 88, Est GFR (MDRD) Non-Af 72, BUN/Creatinine Ratio 17.5, Glucose 94, Calcium 7.8 L, Iron 25 L, TIBC 170 L, Iron Saturation 14.7 L Radiography Diagnostic Testing: Radiology Impression Chest X-Ray 04/02/22 13:45 IMPRESSION: Findings suggestive of a mild degree of CHF with right basilar atelectasis. Electronically Signed: Fransisco Henriquez MD at 14:00 EDT , Physical Exam Const alert and no apparent distress Resp normal respiratory effort and no retractions Cardio regular rate, regular rhythm, S1 normal heart sound and S2 normal heart sound GI normal to inspection, nondistended, normoactive bowel sounds and soft to palpation Extremity General Extremity: edema bilateral lower extremity Details: moderate Neuro Sensorium / Orientation: awake and alert Speech: speech normal Psych affect normal Assessment & Plan Assessment/Plan (1) New onset of congestive heart failure: PLAN: Acute heart failure with preserved ejection fraction EF 60% from 2D echocardiogram from January 19, 2021 On furosemide drip Repeat echo ordered and pending (2) Anasarca: PLAN: Weight appears to have gone up roughly 7.6 kg since she was here last. She was last here on March 08. PLAN: Plan 1. New onset CHF, unclear subtype with anasarca-chest x-ray with CHF. Significant lower extremity swelling. BNP ordered. Lasix drip. Strict I&O. Daily weight. Kyle wraps bilateral lower extremities. Obtain echocardiogram. 2. History of alcoholic fatty liver disease-following with GI. States she is no longer on meds. Denies recent alcohol use. 3. Hypertension-hold clonidine due to borderline low blood pressure on admission. 4. GERD-continue PPI. 5. Anxiety/depression-on fluoxetine. 6. Lower abdomen candidiasis-topical nystatin. DVT prophylaxis- Lovenox sc Charges/Coding Visit Charges Inpatient E&M: 28526 Subs Hosp L2
[2022-04-03] MEDS: Potassium Chloride Oral Tablet 20 MEQ PO ×3 (09:31→16:34)
[2022-04-03] MEDS: Magnesium Chloride 64 MG Delay Rel.Tablet 128 MG PO (09:32)
[2022-04-03] MEDS: Heparin Injection (Vial) 5,000 UNIT/ML VIAL 5000 UNIT SC ×2 (09:32→21:24)
[2022-04-03] MEDS: FLUoxetine 10 MG Capsule PO (09:33)
[2022-04-03] MEDS: Nystatin/Triamcin Cream Tube 1 APPLIC TOPICAL ×2 (09:33→21:22)
[2022-04-03] MEDS: Pantoprazole Sodium 40 MG Tablet PO (09:33)
--- NOTE | 2022-04-03 13:21 | CASEMGMT ---
Readmission chart review: 03/07-03/10/22 Left foot cellulitis 04/02/22-current CHF, anasarca Pt initially admitted to [facility] for left foot cellulitis and was discharged home with FWW and po antibx. 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 Pt returned to [facility] ED on 04/02/22 for bilat lower extremity swelling x1 week ans was admitted to PCU for CHF, anasarca. Pt's BNPt is 233.2. Pt states ran out of lasix at home and then also stated that she doesn't think it works anyway. Pt also c/o weight gain in last week or so. Pt has been 94-100% on room air since arrival. Pt is currently on lasix gtt and mark wraps to bilat le. CM to follow for any further discharge planning/needs. SStjanna RAMOS CM
[2022-04-03] MEDS: Furosemide 500 MG in Empty Viaflex 50 mL 1 EACH CONT INF (17:45)
[2022-04-04] VITALS (9 sets, daily range): BP systolic 107–132; BP diastolic 63–79; PULSE 71–89; RESP 18; TEMP 36.4–37; O2SAT 94–96
[2022-04-04] MEDS: Gabapentin 300 MG Capsule PO ×3 (05:15→21:16)
[2022-04-04 06:44] LABS: Anion Gap 5 (5-15); BUN 13 mg/dL (7-18); BUN/Creat Ratio 11.5 RATIO (10-20); Calcium,Total 8.3 mg/dL (8.5-10.1); Chloride 100 mmol/L (98-107); Creatinine, Serum 1.13 mg/dL (0.55-1.02); EST Glomerular Filtration Rate 53 mL/min (>60); Est Glom Filt Rate - Afr Amer 64 mL/min (>60); Estimated Creatinine Clearance 54.74 ml/min; Glucose 95 mg/dL (74-106); Potassium 3.4 mmol/L (3.5-5.1); Sodium Level 138 mmol/L (136-145)
--- NOTE | 2022-04-04 07:27 | PN.HOSP_ITS ---
Subjective Subjective Feeling well. Still with edema, but improved. Objective Data Objective Data Vital Signs: Vital Signs Temp Pulse Resp BP Pulse Ox O2 Del Method 36.4 C L 75 18 114/69 95 Room Air 04/04/22 03:21 04/04/22 03:21 04/04/22 03:21 04/04/22 03:21 04/04/22 03:21 04/04/22 03:28 Oxygen Delivery Method Room Air Weight: 122.8 kg Body Mass Index (BMI) 41.1 Intake & Output: Intake and Output for Last 24 Hours 04/02/22 04/03/22 04/04/22 23:59 23:59 23:59 Intake Total 520 / 520 1182.63 / 1182.63 Output Total 2050 / 2150 7950 / 7950 1725 / 1725 Balance -1530 / -1630 -6767.37 / -6767.37 -1725 / -1725 Lab / Micro Data Result Diagrams: 04/03/22 05:17 04/04/22 05:11 Labs: Laboratory Results - last 24 hr 04/04/22 05:11: Sodium 138, Potassium 3.4 L, Chloride 100, Carbon Dioxide 33.0 H , Anion Gap 5, BUN 13, Creatinine 1.13 H, Estim Creat Clear Calc 54.74, Est GFR (MDRD) Af Amer 64, Est GFR (MDRD) Non-Af 53 L, BUN/Creatinine Ratio 11.5, Glucose 95, Calcium 8.3 L Micro: Microbiology 04/02/22 15:07 Urine, Clean Catch Urine Culture - Preliminary Mixed Gram Pos & Gram Neg Org Radiography Diagnostic Testing: Radiology Impression Echocardiogram 04/02/22 18:25 Interpretation Summary The estimated ejection fraction is 60 %. No significant valvular abnormalities Ordering Physician: Fritz Mercado Referring Physician: Fritz Villatoro Performed By: Kanwal Burton RCS Physical Exam Const alert and no apparent distress Resp normal respiratory effort, no retractions, no use of accessory muscles and clear to auscultation bilaterally Cardio regular rate, regular rhythm, S1 normal heart sound and S2 normal heart sound GI normal to inspection, nondistended, normoactive bowel sounds, soft to palpation, non-tender and non-distended Extremity Extremity Narrative: +edema bilateral LE. HEIKE wraps. Psych affect normal Assessment & Plan Assessment/Plan (1) New onset of congestive heart failure: PLAN: Acute heart failure with preserved ejection fraction EF 60% from 2D echocardiogram from January 19, 2021, same as 04/03 Repeat echo ordered and pending Overall diuresed 10 L Plan: * DC furosemide gtt * change to PO furosemide 40 BID (2) Anasarca: PLAN: improved with diuresis (3) Hypokalemia: PLAN: Replace Magnesium 1.7, replace PLAN: Plan Chronic conditions: * History of alcoholic fatty liver disease-following with GI. States she is no longer on meds. Denies recent alcohol use. * Hypertension-hold clonidine due to borderline low blood pressure on admission. * GERD-continue PPI. * Anxiety/depression-on fluoxetine. Lower abdomen candidiasis-topical nystatin. DVT prophylaxis- Lovenox sc Disposition: To be determined. PT OT evaluate and treat. Based on their assessment will determine if patient would be going to a senior living facility versus home. Patient's is present and expressed some concern about her going home. Charges/Coding Visit Charges Inpatient E&M: 26034 Subs Hosp L2
[2022-04-04 08:20] LABS: Magnesium 1.7 mg/dL (1.6-2.6)
[2022-04-04] MEDS: Potassium Chloride Oral Tablet 20 MEQ PO ×3 (08:30→17:03)
[2022-04-04] MEDS: Pantoprazole Sodium 40 MG Tablet PO (08:30)
[2022-04-04] MEDS: Heparin Injection (Vial) 5,000 UNIT/ML VIAL 5000 UNIT SC ×2 (08:30→21:16)
[2022-04-04] MEDS: Menthol/Lanolin/Calamine/Znox 113 GM Tube 1 APPLIC TOPICAL ×2 (08:31→21:17)
[2022-04-04] MEDS: Magnesium Chloride 64 MG Delay Rel.Tablet 128 MG PO (08:31)
[2022-04-04] MEDS: Nystatin/Triamcin Cream Tube 1 APPLIC TOPICAL ×2 (08:31→21:17)
[2022-04-04] MEDS: FLUoxetine 10 MG Capsule PO (08:31)
[2022-04-04] MEDS: Furosemide 40 MG Tablet PO ×2 (10:40→17:03)
[2022-04-04] MEDS: 0.9% Saline Lock 10 ML Syringe IV (21:17)
[2022-04-05 02:59] VITALS: PULSE 71
[2022-04-05 03:38] VITALS: BP 144/76; PULSE 83; RESP 18; TEMP 36.7; O2SAT 95
[2022-04-05] MEDS: Gabapentin 300 MG Capsule PO (05:42)
[2022-04-05 06:32] LABS: Anion Gap 5 (5-15); BUN 12 mg/dL (7-18); BUN/Creat Ratio 12.5 RATIO (10-20); Calcium,Total 8.1 mg/dL (8.5-10.1); Chloride 101 mmol/L (98-107); Creatinine, Serum 0.96 mg/dL (0.55-1.02); EST Glomerular Filtration Rate 64 mL/min (>60); Est Glom Filt Rate - Afr Amer 77 mL/min (>60); Estimated Creatinine Clearance 64.44 ml/min; Glucose 104 mg/dL (74-106); Potassium 3.6 mmol/L (3.5-5.1); Sodium Level 136 mmol/L (136-145)
[2022-04-05 06:54] VITALS: PULSE 77
[2022-04-05 07:40] VITALS: O2SAT 93
--- NOTE | 2022-04-05 08:31 | PN.HOSP_ITS ---
Subjective Subjective Feeling better. Did well with therapy. Objective Data Objective Data Vital Signs: Vital Signs Temp Pulse Resp BP Pulse Ox O2 Del Method 36.7 C 77 18 144/76 H 93 Room Air 04/05/22 03:38 04/05/22 06:54 04/05/22 03:38 04/05/22 03:38 04/05/22 07:40 04/05/22 07:40 Oxygen Delivery Method Room Air Weight: 122.8 kg Body Mass Index (BMI) 41.1 Intake & Output: Intake and Output for Last 24 Hours 04/03/22 04/04/22 04/05/22 23:59 23:59 23:59 Intake Total 1182.63 / 1182.63 720.83 / 720.83 Output Total 7950 / 7950 4675 / 4675 500 / 500 Balance -6767.37 / -6767.37 -3954.17 / -3954.17 -500 / -500 Lab / Micro Data Result Diagrams: 04/03/22 05:17 04/05/22 05:37 Labs: Laboratory Results - last 24 hr 04/05/22 05:37: Sodium 136, Potassium 3.6, Chloride 101, Carbon Dioxide 30.0, Anion Gap 5, BUN 12, Creatinine 0.96, Estim Creat Clear Calc 64.44, Est GFR (MDRD) Af Amer 77, Est GFR (MDRD) Non-Af 64, BUN/Creatinine Ratio 12.5, Glucose 104, Calcium 8.1 L Micro: Microbiology 04/02/22 13:19 Blood Culture (Wb) - Anticubital Left Blood Culture - Preliminary No growth in 48 hours. 04/02/22 12:49 Blood Culture (Wb) - Anticubital Left Blood Culture - Preliminary No growth in 48 hours. 04/02/22 15:07 Urine, Clean Catch Urine Culture - Final Mixed Gram Pos & Gram Neg Org Physical Exam Const alert HEENT head/scalp atraumatic Extremity General Extremity: edema bilateral lower extremity Details: mild Psych affect normal Assessment & Plan Assessment/Plan (1) New onset of congestive heart failure: PLAN: Acute heart failure with preserved ejection fraction EF 60% from 2D echocardiogram from January 19, 2021, same as 04/03 Repeat echo ordered and pending Overall diuresed 10 L Plan: * change to PO furosemide 40 BID (2) Anasarca: PLAN: improved with diuresis (3) Hypokalemia: PLAN: Replace Improved PLAN: Plan Chronic conditions: * History of alcoholic fatty liver disease-following with GI. States she is no longer on meds. Denies recent alcohol use. * Hypertension-hold clonidine due to borderline low blood pressure on admission. * GERD-continue PPI. * Anxiety/depression-on fluoxetine. Lower abdomen candidiasis-topical nystatin. DVT prophylaxis- Lovenox sc Disposition: To home. Patient was seen by therapy and recommend no additional therapy needs
[2022-04-05] MEDS: Potassium Chloride Oral Tablet 20 MEQ PO ×2 (08:59→11:16)
[2022-04-05] MEDS: HYDROcodone Bitartrate/Apap 5/325 Tablet PO (09:00)
[2022-04-05] MEDS: FLUoxetine 10 MG Capsule PO (09:00)
[2022-04-05] MEDS: Magnesium Chloride 64 MG Delay Rel.Tablet 128 MG PO (09:00)
[2022-04-05] MEDS: Nystatin/Triamcin Cream Tube 1 APPLIC TOPICAL (09:00)
[2022-04-05] MEDS: Furosemide 40 MG Tablet PO (09:00)
[2022-04-05] MEDS: Pantoprazole Sodium 40 MG Tablet PO (09:00)
[2022-04-05] MEDS: Heparin Injection (Vial) 5,000 UNIT/ML VIAL 5000 UNIT SC (09:00)
[2022-04-05] MEDS: Menthol/Lanolin/Calamine/Znox 113 GM Tube 1 APPLIC TOPICAL (09:01)
[2022-04-05 09:35] VITALS: BP 145/79; PULSE 94; RESP 18; TEMP 37.1; O2SAT 97
--- NOTE | 2022-04-05 10:53 | PCM.DC ---
Discharge Instructions Diet Discharge Diet: Low fat / Low cholesterol, 2000 mg Sodium Diet and - (1.5 liters (48 oz) fluid per day) Dressing / Incision Call your doctor if you observe: Swelling in the ankles Follow Up Care Test Results: Test results from this visit will be discussed in further detail at your follow-up appointment, if applicable. Discharge Plan Admission Admit Date/Time: 04/02/22 18:00 Primary Reason for Your Visit: CHF Attending Provider: Javier Coleman Primary Care Provider: Fritz Villatoro Consulting Providers: Fritz Mercado Instructions Additional Instructions / Restrictions: Daily weights. Notify physician if weight increases more than 2 pounds in 1 day, or 3 pounds in 1 week. Discharge Orders/Prescriptions Prescriptions: New furosemide 40 mg Tablet 40 mg PO BIDLX Qty: 60 0RF Continued fluoxetine 10 mg Capsule 10 mg PO PRN PRN (Reason: depression) potassium chloride [Klor-Con M20] 20 mEq tablet,ER particles/crystals 20 meq PO TID magnesium oxide 400 mg (241.3 mg magnesium) tablet 400 mg PO BID Label Comments: TAKE 1 TABLET BY MOUTH TWICE A DAY pantoprazole [Protonix] 40 mg tablet,delayed release (DR/EC) 40 mg PO DAILY gabapentin 300 mg capsule 300 mg PO TID Discontinued clonidine HCl 0.2 MG tablet 0.2 mg PO DAILY Label Comments: blood pressure furosemide 40 mg tablet 40 mg PO DAILY cephalexin 500 mg capsule 500 mg PO TID Referrals / Follow Up: [facility] [Provider Group] - 05/28/22 3:00 pm [facility] [Provider Group] - Within 1 Month Fritz Villatoro DO [Primary Care Provider] - Within 2 Weeks Disposition Disposition (needs filled in before D/C Order can be placed): Home, Self Care
--- NOTE | 2022-04-05 10:59 | DS.PCM_ITS ---
Providers Date of Admission: 04/02/22 Primary Care Physician: Dr. Fritz Villatoro DO Reason For Visit: CHF, ANASARCA Diagnosis Discharge Diagnosis (1) New onset of congestive heart failure: Status: Acute Code(s): I50.9 - Heart failure, unspecified Plan: Acute heart failure with preserved ejection fraction EF 60% from 2D echocardiogram from January 19, 2021, same as 04/03 Repeat echo ordered and pending Overall diuresed 10 L Plan: * change to PO furosemide 40 BID * follow up with cardiology as outp * fluid restrict at home 1.5 liters/day (2) Anasarca: Status: Acute Code(s): R60.1 - Generalized edema Plan: improved with diuresis (3) Hypokalemia: Status: Acute Code(s): E87.6 - Hypokalemia Plan: Replace Improved Plan Chronic conditions: * History of alcoholic fatty liver disease-following with GI. States she is no longer on meds. Denies recent alcohol use. * Hypertension-hold clonidine due to borderline low blood pressure on admission. * GERD-continue PPI. * Anxiety/depression-on fluoxetine. Lower abdomen candidiasis-topical nystatin. DVT prophylaxis- Lovenox sc Disposition: To home. Patient was seen by therapy and recommend no additional therapy needs Medications at Discharge Home Medications fluoxetine 10 mg capsule 10 mg PO PRN PRN depression 01/19/21 potassium chloride 20 mEq tablet,extended release(part/cryst) (Klor-Con M) 20 meq PO TID supplement 01/23/22 gabapentin 300 mg capsule 300 mg PO TID nerve pain 04/02/22 magnesium oxide 400 mg (241.3 mg magnesium) tablet 400 mg PO BID supplement 04/02/22 pantoprazole 40 mg tablet,delayed release (Protonix) 40 mg PO DAILY stomach 04/02/22 furosemide 40 mg tablet 40 mg PO BIDLX #60 tabs 04/05/22 Hospital Course Operations None Procedures 2-D Echocardiogram Summary of Care Provided Minutes Spent on Discharge: 32 Hospital Course: This is a 56-year-old female presents with anasarca. Patient had acute heart failure with preserved ejection fraction with an EF of 60% on 2D echocardiogram from April 03. Patient was started on a furosemide drip and diuresed over 10 L. Patient is doing much better today. Patient has been changed over to oral Lasix. Patient will continue with oral Lasix and has been advised to check her weight daily and to notify physician if her weight changes. Patient also advised to restrict her fluid intake as well to 1.5 L daily. Weight / BMI Weight Weight: 122.8 kg Body Mass Index (BMI) 41.1 ABG / Lab / Microbiology Data Result Diagrams: 04/03/22 05:17 04/05/22 05:37 Laboratory: Laboratory Results - last 24 hr 04/05/22 05:37: Sodium 136, Potassium 3.6, Chloride 101, Carbon Dioxide 30.0, Anion Gap 5, BUN 12, Creatinine 0.96, Estim Creat Clear Calc 64.44, Est GFR (MDRD) Af Amer 77, Est GFR (MDRD) Non-Af 64, BUN/Creatinine Ratio 12.5, Glucose 104, Calcium 8.1 L Microbiology: Microbiology 04/02/22 13:19 Blood Culture (Wb) - Anticubital Left Blood Culture - Preliminary No growth in 48 hours. 04/02/22 12:49 Blood Culture (Wb) - Anticubital Left Blood Culture - Preliminary No growth in 48 hours. 04/02/22 15:07 Urine, Clean Catch Urine Culture - Final Mixed Gram Pos & Gram Neg Org D/C Instructions Discharge Diet: Low fat / Low cholesterol, 2000 mg Sodium Diet and - (1.5 liters (48 oz) fluid per day) Call your doctor if you observe: Swelling in the ankles Meaningful Use Info Meaningful Use Diagnoses (Choose all that apply): CHF CHF HEIKE/ARB ordered at discharge?: No Reason HEIKE/ARB not ordered?: Hypotension Documented LVEF (%): 60 Discharge Plan Admission Admit Date/Time: 04/02/22 18:00 Primary Reason for Your Visit: CHF Attending Provider: Javier Coleamn Primary Care Provider: Fritz Villatoro Consulting Providers: Fritz Mercado Instructions Additional Instructions / Restrictions: Daily weights. Notify physician if weight increases more than 2 pounds in 1 day, or 3 pounds in 1 week. Discharge Orders/Prescriptions Prescriptions: New furosemide 40 mg Tablet 40 mg PO BIDLX Qty: 60 0RF Continued fluoxetine 10 mg Capsule 10 mg PO PRN PRN (Reason: depression) potassium chloride [Klor-Con M20] 20 mEq tablet,ER particles/crystals 20 meq PO TID magnesium oxide 400 mg (241.3 mg magnesium) tablet 400 mg PO BID Label Comments: TAKE 1 TABLET BY MOUTH TWICE A DAY pantoprazole [Protonix] 40 mg tablet,delayed release (DR/EC) 40 mg PO DAILY gabapentin 300 mg capsule 300 mg PO TID Discontinued clonidine HCl 0.2 MG tablet 0.2 mg PO DAILY Label Comments: blood pressure furosemide 40 mg tablet 40 mg PO DAILY cephalexin 500 mg capsule 500 mg PO TID Referrals / Follow Up: [facility] [Provider Group] - 05/28/22 3:00 pm [facility] [Provider Group] - Within 1 Month Fritz Villatoro DO [Primary Care Provider] - Within 2 Weeks Disposition Disposition (needs filled in before D/C Order can be placed): Home, Self Care Charges/Coding Visit Charges Inpatient E&M: 29425 Disch Hosp
== END 2022-04-05 13:03 | disposition home or self-care (01) | DRG 291 ==
LOC: ED 17:01 → PCU 17:38
PROVIDERS: Nurse Practitioner Family; Admitting Provider Internal Medicine; Emergency Provider Emergency Medicine; PCP Family Medicine
DX: I11.0 Hypertensive heart disease with heart failure (principal); I50.31 Acute diastolic (congestive) heart failure; Z68.41 Body mass index [BMI] 40.0-44.9, adult; E66.01 Morbid (severe) obesity due to excess calories; E78.5 Hyperlipidemia, unspecified; G62.9 Polyneuropathy, unspecified; B37.2 Candidiasis of skin and nail; I95.9 Hypotension, unspecified; K21.9 Gastro-esophageal reflux disease without esophagitis; E87.6 Hypokalemia; F41.9 Anxiety disorder, unspecified; Z87.891 Personal history of nicotine dependence; F32.A Depression, unspecified; Z79.899 Other long term (current) drug therapy; Z98.84 Bariatric surgery status
CPT/HCPCS: 36415; 71045; 80048; 80053; 81001; 83540; 83550; 83605; 83735; 83880; 84484; 85025; 85610; 85730; 87040; 87086; 87088; 93005; 93306; 97161; 97802; 99285; Q9957; A4216; J1940

== ENCOUNTER 2022-06-20 09:53 | Inpatient (IN) | payer MEDICARE, SELFPAY ==
[2022-06-20] VITALS (13 sets, daily range): BP systolic 95–132; BP diastolic 58–68; PULSE 110–130; RESP 15–20; TEMP 36.1–36.6; O2SAT 88–97; BMI 37.6; BMI 37.3
--- NOTE | 2022-06-20 10:26 | CT_ITS ---
STUDY: CT CERVICAL SPINE WITHOUT CONTRAST REASON FOR EXAM: Female, 56 years old. Neck injury due to a fall. RADIATION DOSAGE (If Supplied By Facility): CTDIvol = ( 44.99 ) mGy, DLP = ( 745.49 ) mGycm TECHNIQUE: High resolution transaxial imaging was performed without contrast material. Sagittal and coronal images were reconstructed. Individualized dose optimization techniques were used for this CT. COMPARISON: Comparison is made with prior study dated 04/17/2021. FINDINGS: Normal craniovertebral junction. Normal anterior atlantoaxial articulation. Normal odontoid process. There is evidence of healing of the hairline fracture of the right lateral mass of C2. There is straightening of the normal cervical lordosis. Normal vertebral bodies and posterior osseous elements. C2-3: Normal endplates. Normal disc height and morphology. Normal central canal and intervertebral neuroforamina. C3-4: Facet joint osteoarthritis and hypertrophy on the left side. No significant stenosis seen. C4-5: Minimal degree of anterior listhesis of C4 on C5. Facet joint osteoarthritis worse on the left side. Uncovertebral arthrosis. Mild degree of right neural foraminal stenosis. C5-6: Normal endplates. Normal disc height and morphology. Normal central canal and intervertebral neuroforamina. C6-7: Normal endplates. Normal disc height and morphology. Normal central canal and intervertebral neuroforamina. C7-T1: Normal endplates. Normal disc height and morphology. Normal central canal and intervertebral neuroforamina. Normal visualized soft tissue structures. CT/Spine Cervical without Contras IMPRESSION: Multilevel degenerative changes, as described above. Healing of the previously seen hairline fracture of the right lateral mass of C2. Minimal anterior listhesis of C4 on C5 most likely secondary to the facet joint osteoarthritis. Electronically Signed: Fransisco Henriquez MD at 13:20 EST ,
--- NOTE | 2022-06-20 10:26 | RAD_ITS ---
STUDY: X-RAY - PELVIS AND RIGHT HIP REASON FOR EXAM: Female, 56 years old. Pain following a fall. TECHNIQUE: 3 views of the pelvis and hip. COMPARISON: None. FINDINGS: There is a non-specific bowel gas pattern. Normal visualized soft tissue structures. There is narrowing with cortical sclerosis and osteophyte formation of the sacroiliac joint consistent with degenerative osteoarthritic changes. Normal bilateral superior and inferior pubic rami. Normal pubic symphysis. Normal bilateral ischial tuberosities. Normal visualized femoral head. Normal acetabulum. Normal hip joint. RAD/HIP, UNI W/ Pelvis 2-3 Views IMPRESSION: Normal x-ray examination of the pelvis and hip. Electronically Signed: Fransisco Henriquez MD at 13:15 EST ,
--- NOTE | 2022-06-20 10:26 | RAD_ITS ---
STUDY: X-RAY - RIGHT SHOULDER REASON FOR EXAM: Female, 56 years old. Pain TECHNIQUE: 2 view(s) of the shoulder. COMPARISON: None. FINDINGS: Normal glenohumeral articulation. Normal acromioclavicular joint. Normal acromion. Normal humeral head and visualized proximal humerus. The soft tissue structures are unremarkable. RAD/Shoulder min 2 Views IMPRESSION: Normal x-ray examination of the shoulder. Electronically Signed: Fransisco Henriquez MD at 13:16 EST ,
--- NOTE | 2022-06-20 10:26 | EKG12_ITS ---
Test Reason : FALL Blood Pressure : / mmHG Vent. Rate : 123 BPM Atrial Rate : 123 BPM P-R Int : 140 ms QRS Dur : 092 ms QT Int : 330 ms P-R-T Axes : 027 -17 048 degrees QTc Int : 472 ms Sinus tachycardia Minimal voltage criteria for LVH, may be normal variant ( R in aVL ) Borderline ECG Confirmed by CHAPO GÓMEZ, CLARICE ([id number]), writer editor SILVESTRE COLLINS ([id number]) on 06/24/2022 7:26:18 AM Referred By: Confirmed By:CLARICE COWAN MD
--- NOTE | 2022-06-20 10:26 | RAD_ITS ---
STUDY: X-RAY - RIGHT KNEE REASON FOR EXAM: Female, 56 years old. Pain following a fall. TECHNIQUE: 2 view(s) of the knee. COMPARISON: Comparison made with prior study dated 01/12/2015. FINDINGS: Degenerative spurring along the medial distal femoral condyle. Normal visualized proximal tibia and fibula. Normal proximal tibiofibular articulation. There is severe degenerative arthrosis of the medial femorotibial compartment with severe joint space narrowing. Normal lateral femorotibial compartment. There is moderate degenerative arthrosis of the patellofemoral articulation. Small joint effusion. RAD/Knee 1 or 2 Views IMPRESSION: Degenerative arthrosis. Electronically Signed: Fransisco Henriquez MD at 13:10 EST ,
--- NOTE | 2022-06-20 10:26 | CT_ITS ---
STUDY: CT BRAIN WITHOUT CONTRAST REASON FOR EXAM: Female, 56 years old. Fall RADIATION DOSAGE (If Supplied By Facility): CTDIvol = ( 44.99 ) mGy, DLP = ( 745.49 ) mGycm TECHNIQUE: Transaxial CT imaging of the brain was performed without administration of intravenous contrast material. Individualized dose optimization techniques were used for this CT. COMPARISON: No relevant priors. FINDINGS: Normal soft tissue structures. Normal calvarium. Normal size ventricles and extra-axial spaces for the patient''s age. Normal white matter tracts of the cerebral hemispheres. Normal basal ganglia and thalami. Normal brainstem. Normal cerebellum. There is no intracranial hemorrhage. There are no findings of an acute ischemic infarction. Normal visualized paranasal sinuses. CT/Brain/Head without Contrast IMPRESSION: Normal unenhanced CT scan of the brain. Electronically Signed: Fransisco Henriquez MD at 13:08 EST ,
--- NOTE | 2022-06-20 10:31 | EDS_ITS ---
HPI History of Present Illness Chief Complaint: Other, Pain/Inj Narrative Narrative: 56-year-old female presenting with multiple complaints. She states that about a week ago she has started having pain in her left shoulder which migrated down to her left hip and then moved to her right hip then back to her left hip and up to her left shoulder again. She states that she does have chronic pain. She does report that she fell a few days ago and had to crawl back to her trailer. She s tates she has ambulated since then. She would normally have difficulty getting up. She states that she did not hit her head when she fell but she has new neck pain. Patient does report chronic neck pain. She also states that since that fall she is unable to lift her right arm up all the way because her shoulder hurts on the right. She also complains of left knee pain but also states that she has chronic knee pain in this knee and was told previously that she will need surgery at some point. Patient also has chronic lower back pain which she states is unchanged. No loss of bladder or bowel control. Patient also reports that she has been unable to get any pain medication for home so she has been drinking alcohol to treat her pain. Patient reportedly slid out of her chair today and was unable to get up for a couple of hours. She states she is too weak to ambulate today and she has too much pain and she request [facility] facility to get her better. [facility] Medical History Acute post-gastric reduction surgery (APGARS) neuropathy Former smoker Hepatitis Hyperlipidemia Hypertension Lactic acidosis Liver failure TGA (transient global amnesia) TIA (transient ischemic attack) Home Medications fluoxetine 10 mg capsule 10 mg PO PRN PRN depression 01/19/21 [History Last Taken 06/20/22] potassium chloride 20 mEq tablet,extended release(part/cryst) (Klor-Con M) 20 meq PO TID supplement 01/23/22 [History Last Taken 06/20/22] gabapentin 300 mg capsule 300 mg PO TID nerve pain 04/02/22 [History Last Taken 06/20/22] magnesium oxide 400 mg (241.3 mg magnesium) tablet 400 mg PO BID supplement 04/02/22 [History Last Taken 06/19/22] clonidine HCl 0.2 mg tablet 0.2 mg PO DAILY HEART 06/20/22 [History Last Taken 06/20/22] diclofenac potassium 50 mg tablet 50 mg PO TID PRN Pain 06/20/22 [History Last Taken 06/20/22] furosemide 40 mg tablet 40 mg PO DAILY FLUID 06/20/22 [History Last Taken 06/20/22] pantoprazole 20 mg tablet,delayed release 20 mg PO DAILY GERD 06/20/22 [History Last Taken 06/20/22] pentoxifylline 400 mg tablet,extended release 400 mg PO DAILY LIVER 06/20/22 [History Last Taken 06/20/22] Allergy/AdvReac Type Severity Reaction Status Date / Time bee venom protein (honey bee) Allergy Swelling Verified 06/20/22 09:58 Family History Father Hypertension Mother Hypertension Surgical History Gastric bypass status for obesity History of total knee arthroplasty Previous back surgery Social History household members: spouse housing: house Smoking Status: Former smoker alcohol intake: current substance use type: does not use ROS ROS ED Constitutional Constitutional ED: Denies chills Eyes Eyes: Denies change in vision ENT ENT ED: Denies rhinorrhea or sore throat Cardiovascular Cardiovascular: Denies chest pain Respiratory/Chest Respiratory/Chest: Denies cough or dyspnea Gastrointestinal Gastrointestinal: Denies abdominal pain, nausea or vomiting Genitourinary Genitourinary ED: Denies dysuria or hematuria Musculoskeletal Musculoskeletal: Reports back pain, neck pain and other Details: Right shoulder pain, right knee pain Neurologic Neurologic: Denies headache(s) or paresthesias Psychiatric Psychiatric: Denies anxiety or depression Endocrine Endocrinology: Denies cold intolerance or heat intolerance EXAM Physical Exam Const Vital Signs: 06/20/22 09:58 06/20/22 10:38 06/20/22 10:38 Temperature 97.0 F L Temperature Source Temporal Pulse Rate 126 H Respiratory Rate 18 Respiratory Effort Normal Non-Labored Respiratory Pattern Normal Blood Pressure 95/68 Blood Pressure Mean 77 Pulse Ox 95 Oxygen Delivery Method Room Air Room Air Oxygen Flow Rate (L/min) 06/20/22 12:36 06/20/22 12:37 Temperature Temperature Source Pulse Rate 126 H Respiratory Rate 18 Respiratory Effort Respiratory Pattern Blood Pressure 113/62 Blood Pressure Mean 79 Pulse Ox 88 95 Oxygen Delivery Method Room Air Nasal Cannula Oxygen Flow Rate (L/min) 2 Positive obese and unkempt General Appearance ED: unkempt Nutritional Appearance: obese HEENT atraumatic Eyes PERRL and EOMs intact bilaterally General Eye ED: Yes scleral icterus Neck full ROM Neck Narrative: No midline spinal deformity, step-offs Chest Wall inspection of chest normal Resp normal respiratory effort Auscultation: diminished lung sounds Cardio regular rhythm Rate: tachycardic GI normal to inspection, nondistended, normoactive bowel sounds Extremity Extremity Narrative: Right shoulder: Tenderness to palpation noted. No obvious deformity. Patient able to raise her arm to about 45 degrees before pain is elicited. There is tenderness to palpation over the right knee. There is no increased warmth, erythema. No obvious deformity. Neuro oriented x3 and CN's II-XII intact bilaterally Sensorium / Orientation: alert and oriented to person Psych Appearance: unkempt Skin Skin Narrative: Superficial excoriations noted to the right forearm MDM MDM MDM Narrative Medical decision making narrative: Patient seen evaluated on arrival. She has multiple complaints. Initial blood pressure was low when she was tachycardic and I assume she was dehydrated so I gave her a 500 cc bolus of normal saline because he has a documented history of CHF and anasarca. Her blood pressure did improve although she remained a little tachycardic. She was given a second bolus of 500 cc of normal saline. EKG is sinus rhythm with a ventricular rate of 123 bpm my interpretation. I did obtain blood work and her CBC shows a slight leukocytosis of 12.1. Hemoglobin 9.3 and at baseline. Platelets low at 58 which is new. Creatinine is elevated today at 1.79. Because she laid on the floor for a while I did obtain a CPK which not consistent with rhabdomyolysis. Patient does have a significant elevation in her total bilirubin today at 6.7, direct bilirubin 5.52, AST 73 alkaline phosphatase 153. SPECT this is due to her drinking. EtOH is negative today. Coagulation studies are normal. Chest x-ray my interpretation is no acute cardiopulmonary process and the radiologist interprets this and agrees. Right hip, right knee, right shoulder x-rays interpreted by myself show no acute fracture subluxation. Radiologist interprets these and agrees to. I did obtain a CT brain which was interpreted as no acute intra cranial process. The CT cervical spine does show healing fracture of C2 lateral mass and mild listhesis anteriorly at C4-C5. Patient was discussed with the hospitalist because she request admission for placement due to weakness and inability to care for herself. She does not feel that her can care for her either. After evaluation the hospitalist requested a right upper quadrant ultrasound due to the transaminitis. This was performed and is negative. Patient transported to medical floor. Impression 1. Generalized weakness 2. Right knee contusion 3. Right hip contusion 4. Right shoulder contusion 5. Cervical strain 6. Transaminitis 7. History of EtOH abuse 8. Hypotension?resolved 9. Dehydration 10. Tachycardia Lab Data Attestation: I reviewed the patient's lab results. Labs: Laboratory Results - last 24 hr 06/20/22 06/20/22 06/20/22 10:55 10:55 10:55 WBC 12.1 H RBC 3.84 L Hgb 9.3 L Hct 30.5 L MCV 79.4 L MCH 24.2 L MCHC 30.5 L RDW Std Deviation 67.5 H RDW Coeff of Arnold 24.8 H Plt Count 58 L Immature Gran % (Auto) 1.700 H Neut % (Auto) 90.6 H Lymph % (Auto) 4.3 L Hamblen % (Auto) 3.2 Eos % (Auto) 0.1 Baso % (Auto) 0.1 Absolute Neuts (auto) 11.0 H Absolute Lymphs (auto) 0.52 L Nucleated RBC % 0.4 Platelet Estimate MOD DEC Polychromasia RARE Hypochromasia 1+ Poikilocytosis 1+ Anisocytosis 2+ Microcytosis 1+ Ovalocytes 1+ PT INR Sodium 134 L Potassium 3.4 L Chloride 97 L Carbon Dioxide 22.0 Anion Gap 15 BUN 59 H Creatinine 1.79 H Estim Creat Clear Calc 34.56 Est GFR (MDRD) Af Amer 37 L Est GFR (MDRD) Non-Af 31 L BUN/Creatinine Ratio 33.0 H Glucose 62 L Calcium 8.9 Total Bilirubin 6.70 H Direct Bilirubin 5.52 H AST 73 H ALT 31 Alkaline Phosphatase 153 H Total Creatine Kinase Troponin I High Sens 20 Total Protein 7.3 Albumin 2.4 L Globulin 4.9 H Ethyl Alcohol < 3.0 06/20/22 06/20/22 10:55 10:55 WBC RBC Hgb Hct MCV MCH MCHC RDW Std Deviation RDW Coeff of Arnold Plt Count Immature Gran % (Auto) Neut % (Auto) Lymph % (Auto) Hamblen % (Auto) Eos % (Auto) Baso % (Auto) Absolute Neuts (auto) Absolute Lymphs (auto) Nucleated RBC % Platelet Estimate Polychromasia Hypochromasia Poikilocytosis Anisocytosis Microcytosis Ovalocytes PT 17.5 H INR 1.5 Sodium Potassium Chloride Carbon Dioxide Anion Gap BUN Creatinine Estim Creat Clear Calc Est GFR (MDRD) Af Amer Est GFR (MDRD) Non-Af BUN/Creatinine Ratio Glucose Calcium Total Bilirubin Direct Bilirubin AST ALT Alkaline Phosphatase Total Creatine Kinase 173 Troponin I High Sens Total Protein Albumin Globulin Ethyl Alcohol Radiography Diagnostic Testing: Clinical Impression(s) from Imaging Studies Brain CT 06/20/22 10:26 IMPRESSION: Normal unenhanced CT scan of the brain. Electronically Signed: Fransisco Henriquez MD at 13:08 EST , Cervical Spine CT 06/20/22 10:26 IMPRESSION: Multilevel degenerative changes, as described above. Healing of the previously seen hairline fracture of the right lateral mass of C2. Minimal anterior listhesis of C4 on C5 most likely secondary to the facet joint osteoarthritis. Electronically Signed: Fransisco Henriquez MD at 13:20 EST , Hip/Pelvis X-Ray 06/20/22 10:26 IMPRESSION: Normal x-ray examination of the pelvis and hip. Electronically Signed: Fransisco Henriquez MD at 13:15 EST , Knee X-Ray 06/20/22 10:26 IMPRESSION: Degenerative arthrosis. Electronically Signed: Fransisco Henriquez MD at 13:10 EST , Shoulder X-Ray 06/20/22 10:26 IMPRESSION: Normal x-ray examination of the shoulder. Electronically Signed: Fransisco Henriquez MD at 13:16 EST , Chest X-Ray 06/20/22 12:40 IMPRESSION: Cardiomegaly and CHF. Electronically Signed: Fransisco Henriquez MD at 13:15 EST , Discharge Plan Triage Chief Complaint: Other, Pain/Inj ED Provider: Eamon Sterling Dx/Rx/DC Orders Primary Care Provider: Fritz Villatoro
[2022-06-20 11:10] LABS: Absolute Lymphocyte Count 0.52 X10^3/uL (0.83-4.51); Basophil# 0.01 X10^3/uL; Basophil% 0.1 % (0-1); Eosinophil# 0.01 X10^3/uL; Eosinophils% 0.1 % (0-5); Hematocrit 30.5 % (37-47); Hemoglobin 9.3 g/dL (12.0-15.0); Lymphocyte # 0.52 X10^3/ul (0.83-4.51); Lymphocyte % 4.3 % (19-41); Mean Corp Hgb Conc 30.5 g/dL (32-36); Mean Corpuscular Hgb 24.2 pg (27.0-32.0); Mean Corpuscular Volume 79.4 fL (81-99); Monocyte# 0.39 X10^3/uL; Monocyte% 3.2 % (0-10); NRBC Flagged by Analyzer 0.4 % (0-5); Neutrophil # 10.98 X10^3/uL (2.7-7.7); Neutrophil % 90.6 % (47-70); POSITIVE COUNT YES; POSITIVE DIFFERENTIAL YES; POSITIVE MORPHOLOGY YES; Platelet Count 58 K/mm3 (150-450); RBC Distribution Width CV 24.8 % (11.6-14.6); RBC Distribution Width SD 67.5 fl (35.1-43.9); Red Blood Count 3.84 M/mm3 (4.2-5.4); White Blood Count 12.1 K/mm3 (4.4-11.0)
[2022-06-20 11:13] LABS: Differential Indicated SCAN CRITERIA MET
[2022-06-20 11:23] LABS: International Normalized Ratio 1.5; Prothrombin Time (Protime)PT. 17.5 SECONDS (11.7-14.9)
[2022-06-20 11:37] LABS: AST(SGOT) 73 U/L (15-37); Alanine Aminotransfer ALT/SGPT 31 U/L (13-56); Albumin, Serum 2.4 g/dL (3.2-5.0); Alkaline Phosphatase 153 U/L (45-117); Anion Gap 15 (5-15); BUN 59 mg/dL (7-18); Bilirubin, Direct 5.52 mg/dL (0.00-0.30); CPK Total, Creatine Kinase 173 U/L (26-192); Calcium,Total 8.9 mg/dL (8.5-10.1); Chloride 97 mmol/L (98-107); Creatinine, Serum 1.79 mg/dL (0.55-1.02); EST Glomerular Filtration Rate 31 mL/min (>60); Est Glom Filt Rate - Afr Amer 37 mL/min (>60); Estimated Creatinine Clearance 34.56 ml/min; Globulin 4.9 g/dL (2.2-4.2); Glucose 62 mg/dL (74-106); Potassium 3.4 mmol/L (3.5-5.1); Protein, Total 7.3 g/dL (6.4-8.2); Sodium Level 134 mmol/L (136-145); Troponin-I HS 20 pg/mL (3.0-54.0)
[2022-06-20 11:42] LABS: Platelet Estimate MOD DEC (ADEQ)
[2022-06-20 11:43] LABS: Anisocytosis 2+; Hypochromasia 1+; Microcytosis 1+; Poikilocytosis 1+; Polychromasia RARE
[2022-06-20 11:44] LABS: Ovalocyte 1+
[2022-06-20 11:46] LABS: Alcohol, Blood (Medical)-Serum < 3.0 mg/dL
[2022-06-20] MEDS: fentaNYL 100 MCG/2 ML Ampul 50 MCG IV (12:09)
[2022-06-20] MEDS: Ondansetron 4 MG/2 ML Vial IV (12:09)
--- NOTE | 2022-06-20 12:40 | RAD_ITS ---
STUDY: X-RAY CHEST REASON FOR EXAM: Female, 56 years old. Chest pain TECHNIQUE: Single AP portable view of the chest. COMPARISON: Comparison is made with prior study dated 04/02/2022. FINDINGS: EKG electrodes are seen. Vascular congestion and CHF. There is no demonstrated pleural abnormality. There is moderate cardiac enlargement. Normal mediastinum and ishmael. Normal visualized pulmonary arteries. There is atherosclerotic tortuosity of the aortic arch and descending thoracic aorta. There are degenerative changes of the visualized thoracic spine. Normal visualized ribs, clavicles, and shoulders. There is no demonstrated abnormality of the visualized soft tissue structures of the upper abdomen. RAD/Chest 1 View (Portable) IMPRESSION: Cardiomegaly and CHF. Electronically Signed: Fransisco Henriquez MD at 13:15 EST ,
--- NOTE | 2022-06-20 14:14 | HP.PCM.HOS_ITS ---
HPI - General General Date of Admission: 06/20/22 Date of Service: 06/20/22 Chief Complaint: generalised weakness HPI Narrative NU BASURTO, is a 56 F with a PMH as outlined who presents via the ED on 06/20/2022 with a complaint of generalised pain. She had vague, multiple symptoms and complained of pain in her left shoulder. Pain apparently migrated to her left hip then right hip and also says she fell a few days ago and couldnt get up on her own. She didnt hit her head. She also complains of neck pain which she thinks is due to the mechanical fall. She complained of generalised pain with no aggravating or relieving factors. She denies any fever, chills, cough, chest pain, palpitations, dizziness, vomiting or diarrhea. She did admit to nausea. She has been drinking at least one large bottle of vodka daily as this is the only thing that helps with her pain. She and her insist she has not been taking any tylenol as she was once told she had problems with her liver due to excessive tylenol use. Review of systems is otherwise negative. Patient was mildy hypotensive on admission with BP down at 95/68. HR was 126 and temp was 97.9F; RR was 18 and she was saturating at 86% on room air at time of review; she had removed her oxygen 2L by nasal canula she was supposed to be wearing. CBC showed wbc of 12.1 with Hb of 9.3 and platelets of 58. INR was 1.5 and chemistry showed sodium of 134, potassium of 3.4 and Cr of 1.79, with eGFR of 31. Total bilirubin was 6.7 and direct bilirubin of 5.52, with ALP elevated at 153 and AST/ALT at 73/31. Serum alcohol level was <3. CT of head and cervical spine showed minimal anterior listhesis of C4 on C5 due to facet osteoarthritis. Knee xray showed degenerative arthrosis and xray of the shoulder was normal. CXR showed cardiomegaly and CHF. She is being admitted to be managed for debility due to generalised chronic pain as well as elevated liver enzymes in the setting of alcohol abuse and hypoxia with probable HFpEF. [facility] Medical History Acute post-gastric reduction surgery (APGARS) neuropathy Former smoker Hepatitis Hyperlipidemia Hypertension Lactic acidosis Liver failure TGA (transient global amnesia) TIA (transient ischemic attack) Home Medications fluoxetine 10 mg capsule 10 mg PO PRN PRN depression 01/19/21 [History Last Taken 06/20/22] potassium chloride 20 mEq tablet,extended release(part/cryst) (Klor-Con M) 20 meq PO TID supplement 01/23/22 [History Last Taken 06/20/22] gabapentin 300 mg capsule 300 mg PO TID nerve pain 04/02/22 [History Last Taken 06/20/22] magnesium oxide 400 mg (241.3 mg magnesium) tablet 400 mg PO BID supplement 04/02/22 [History Last Taken 06/19/22] clonidine HCl 0.2 mg tablet 0.2 mg PO DAILY HEART 06/20/22 [History Last Taken 06/20/22] diclofenac potassium 50 mg tablet 50 mg PO TID PRN Pain 06/20/22 [History Last Taken 06/20/22] furosemide 40 mg tablet 40 mg PO DAILY FLUID 06/20/22 [History Last Taken 06/20/22] pantoprazole 20 mg tablet,delayed release 20 mg PO DAILY GERD 06/20/22 [History Last Taken 06/20/22] pentoxifylline 400 mg tablet,extended release 400 mg PO DAILY LIVER 06/20/22 [History Last Taken 06/20/22] Allergy/AdvReac Type Severity Reaction Status Date / Time bee venom protein (honey bee) Allergy Swelling Verified 06/20/22 09:58 Family History Father Hypertension Mother Hypertension Surgical History Gastric bypass status for obesity History of total knee arthroplasty Previous back surgery Social History household members: spouse housing: house Smoking Status: Former smoker alcohol intake: current substance use type: does not use ROS Constitutional Constitutional: Reports anorexia, fatigue, malaise and weakness; Denies change in weight, chills or fever(s) Eyes Eyes: Denies change in vision ENT HEENT: Denies dysphagia, headache(s), nasal congestion, sinus pressure or sore throat Cardiovascular Cardiovascular: Reports dyspnea on exertion and rapid heart rate; Denies chest pain, edema, lightheadedness, orthopnea, palpitations, paroxysmal nocturnal dyspnea or syncope Respiratory/Chest Respiratory/Chest: Reports dyspnea, shortness of breath at rest and shortness of breath with exertion; Denies cough, hemoptysis, productive cough or wheezing Gastrointestinal Gastrointestinal: Reports nausea; Denies abdominal pain, coffee ground emesis, constipation, diarrhea or vomiting Genitourinary Genitourinary: Denies dysuria Musculoskeletal Musculoskeletal: Reports arthralgias, joint pain and other Details: complains of generalised pain Neurologic Neurologic: Denies confusion, dizziness, focal weakness, headache(s), numbness or seizures Psychiatric Psychiatric: Denies anxiety or depression Endocrine Endocrinology: Denies change in body appearance Hematologic/Lymphatic Hematologic/Lymphatic: Denies anemia Vital Signs Vital Signs Vital Signs: 06/20/22 09:58 06/20/22 10:38 06/20/22 10:38 Temperature 97.0 F L Temperature Source Temporal Pulse Rate 126 H Respiratory Rate 18 Respiratory Effort Normal Non-Labored Respiratory Pattern Normal Blood Pressure 95/68 Blood Pressure Mean 77 Pulse Ox 95 Oxygen Delivery Method Room Air Room Air Oxygen Flow Rate (L/min) 06/20/22 12:36 06/20/22 12:37 Temperature Temperature Source Pulse Rate 126 H Respiratory Rate 18 Respiratory Effort Respiratory Pattern Blood Pressure 113/62 Blood Pressure Mean 79 Pulse Ox 88 95 Oxygen Delivery Method Room Air Nasal Cannula Oxygen Flow Rate (L/min) 2 Weight Weight: 247 lb 9.266 oz Body Mass Index (BMI) 37.6 Physical Exam Const alert and oriented x3 Constitutional Narrative: morbidly obese General Appearance: cooperative Orientation / Consciousness: lethargic HEENT normocephalic, head/scalp atraumatic and hearing grossly normal bilaterally HEENT Narrative: very dry oral mucosal membranes, with dry, parched burnt tongue. Eyes PERRL and EOMs intact bilaterally Eyes Narrative: patient visibly jaundiced Neck no lymphadenopathy and supple Resp Resp Narrative: mildly diminished breath sounds bibasally, few crackles bilaterally. saturating in mid 80s on room air. Cardio regular rhythm, S1 normal heart sound, S2 normal heart sound and no murmurs Cardio Narrative: sinus tachycardia GI GI Narrative: abdomen obese, soft, nontender, no palpable organomegaly. Oro's sign negative Extremity normal to inspection Extremity Narrative: mild tenderness on palpation of LEs and calves, especially right calf. No visible calf swelling Neuro oriented x3 and CN's II-XII intact bilaterally Sensorium / Orientation: awake Psych Psych Narrative: flat affect Results Lab / Micro Data Result Diagrams: 06/20/22 10:55 06/20/22 10:55 Labs: Laboratory Results - last 24 hr 06/20/22 10:55: WBC 12.1 H, RBC 3.84 L, Hgb 9.3 L, Hct 30.5 L, MCV 79.4 L, MCH 24.2 L, MCHC 30.5 L, RDW Std Deviation 67.5 H, RDW Coeff of Arnold 24.8 H, Plt Count 58 L, Immature Gran % (Auto) 1.700 H, Neut % (Auto) 90.6 H, Lymph % (Auto) 4.3 L, Morrill % (Auto) 3.2, Eos % (Auto) 0.1, Baso % (Auto) 0.1, Absolute Neuts (auto) 11.0 H, Absolute Lymphs (auto) 0.52 L, Nucleated RBC % 0.4, Platelet Estimate MOD DEC, Polychromasia RARE, Hypochromasia 1+, Poikilocytosis 1+, Anisocytosis 2+, Microcytosis 1+, Ovalocytes 1+ 06/20/22 10:55: Sodium 134 L, Potassium 3.4 L, Chloride 97 L, Carbon Dioxide 22.0, Anion Gap 15, BUN 59 H, Creatinine 1.79 H, Estim Creat Clear Calc 34.56, Est GFR (MDRD) Af Amer 37 L, Est GFR (MDRD) Non-Af 31 L, BUN/Creatinine Ratio 33.0 H, Glucose 62 L, Calcium 8.9, Total Bilirubin 6.70 H, Direct Bilirubin 5.52 H, AST 73 H, ALT 31, Alkaline Phosphatase 153 H, Troponin I High Sens 20, Total Protein 7.3, Albumin 2.4 L, Globulin 4.9 H 06/20/22 10:55: Ethyl Alcohol < 3.0 06/20/22 10:55: PT 17.5 H, INR 1.5 06/20/22 10:55: Total Creatine Kinase [address] 06/20/22 10:26 IMPRESSION: Normal unenhanced CT scan of the brain. Electronically Signed: Fransisco Henriquez MD at 13:08 EST , Cervical Spine CT 06/20/22 10:26 IMPRESSION: Multilevel degenerative changes, as described above. Healing of the previously seen hairline fracture of the right lateral mass of C2. Minimal anterior listhesis of C4 on C5 most likely secondary to the facet joint osteoarthritis. Electronically Signed: Fransisco Henriquez MD at 13:20 EST Reading Location ID and State: [address] [place] [address] , Service support , Hip/Pelvis X-Ray 06/20/22 10:26 IMPRESSION: Normal x-ray examination of the pelvis and hip. Electronically Signed: Fransisco Henriquez MD at 13:15 EST Reading Location ID and State: [address] [place] [address] , Service support , Knee X-Ray 06/20/22 10:26 IMPRESSION: Degenerative arthrosis. Electronically Signed: Fransisco Henriquez MD at 13:10 EST Reading Location ID and State: [address] [place] [address] , Service support , Shoulder X-Ray 06/20/22 10:26 IMPRESSION: Normal x-ray examination of the shoulder. Electronically Signed: Fransisco Henriquez MD at 13:16 EST Reading Location ID and State: [facility] [place] [facility] [place] , Service support , Chest X-Ray 06/20/22 12:40 IMPRESSION: Cardiomegaly and CHF. Electronically Signed: Fransisco Henriquez MD at 13:15 EST , Assessment & Plan Assessment/Plan (1) Debility: (2) Elevated liver enzymes: (3) Alcohol abuse: PLAN: Plan #ELevated liver enzymes * likely due to excessive alcohol intake and probable alcoholic hepatitis. Says she has been drinking at least one large bottle of vodka daily to help with her pain * has a history of acute liver failure due to tylenol use in January 2022, which required mucormyst infusion * insists she hasnt taken any tylenol since then * check tylenol level * ALP is also elevated, indicating a probable obstructive pattern * will therefore get RUQ ultrasound to evaluate liver and gallbladder. * hydrate with IVF. * Consult gastroenterology: patient started on solumedrol, pentoxyfylline and mucormist per GI * #Debility due to generalised pain * complains of generalised pain all over. * PO ibuprofen prn as well as IV morphine prn. * no tylenol due to liver enzymes elevation * PT.OT consult. Fall precautions * CT cervical spine and xray of hte knee showed no acute pathology and showed evidence of arthritis * #Hypoxia * likely due to exacerbation of HFpEF * has not been compliant with her lasix as she said it wasnt delivered ontime by her mail order pharmacy * received some fluids in the ED also due to low blood pressure on admission * CXR showed evidence of fluid overload and heart failure. * will give IV lasix 40mg daily; monitor intake and output. * FLuid restriction to 1500cc daily. * Cr also elevated so will monitor carefully. * titrate oxygen to maintain sats >90% * #Sinus tachycardia * HR is up in the 120s. Not on any beta edinson. She was hypotensive on adm ission * will give IV lopressor 5mg x 1 and monitor. * if not improving, will get CTA chest. * #Hypokalemia: K is 3.4. Will replace and trend. #GERD: on PPI DVT prophylaxis: heparin COde status: full code * Patient and counseled extensively about different types of CODE STATUS including full code, DNR CCA and DNR CCA. Patient elects to be full code. * Total [id number] time 16 minutes. # Charges/Coding Visit Charges Inpatient E&M: 45283 Init Hosp L3 Procedures Hospitalists Procedures: 22715 Advncd Care Plan 30 Min
--- NOTE | 2022-06-20 14:37 | US_ITS ---
STUDY: ABDOMINAL ULTRASOUND - RIGHT UPPER QUADRANT REASON FOR VISIT: Female, 56 years old Elevated liver enzyme TECHNIQUE: Ultrasound evaluation of the right upper quadrant was performed with real-time and static ortega-scale imaging. TECHNICAL QUALITY: Adequate. COMPARISON: Ultrasound of the right upper quadrant of the abdomen 01/23/2022. CT abdomen and pelvis with IV contrast 01/23/2022. FINDINGS: Liver: The liver measures 23.2 cm. Pronounced at the increased echogenicity of the liver parenchyma due to pronounced hepatic steatosis. The bile ducts are within normal limits. There is hepatic color flow. The direction of portal flow is hepatopetal. There is no demonstrated mass lesion. Gallbladder: Normal distended gallbladder. The gallbladder wall measures 3 mm. There is a negative sonographic Oro''s sign. There is no pericholecystic fluid. There are no gallstones. Common Bile Duct (C.B.D.): The common bile duct measures 5 mm. Pancreas: Normal size of the head, body and tail of the pancreas. There is normal echogenicity of the pancreas. There is no demonstrated pancreatic mass or cyst. The pancreatic duct is not dilated. Right Kidney: Normal size of the right kidney. The right kidney measures 11.2 x 4.5 x 4.0 cm. Normal renal cortex. The right cortex measures 1.3 cm. There is no demonstrated renal mass or cyst. There is no right hydronephrosis. US/Gallbladder IMPRESSION: 1. Hepatomegaly and pronounced diffuse hepatic steatosis. 2. No acute abnormality in the abdomen. 3. No significant interval change when compared to 01/23/[address] abdomen. Electronically Signed: Cj Recio MD at 15:52 EST ,
[2022-06-20] MEDS: proMETHazine 25 MG/ML Syringe 12.5 MG IM (14:38)
--- NOTE | 2022-06-20 17:11 | VDLE_ITS ---
Reason For Study: Pain RIGHT GSV is normal. CFV is compressible, spontaneous, phasic, competent and demonstrates normal augmentation. FV is compressible, spontaneous, phasic, competent and demonstrates normal augmentation. POP V is compressible, spontaneous, phasic, competent and demonstrates normal augmentation. T/P Trunk is compressible. PTV is compressible. RT PerV is compressible. Procedure This is a venous duplex using B-mode, color flow and spectral Doppler. Exam performed portable in ICU/CCU. A preliminary report was called and/or faxed to ICU. VL/Venous Duplex US, Unilateral Interpretation Summary Deep veins of the right lower extremity are patent and compressible segmentally . There is no evidence of right lower extremity deep vein thrombosis. The right great sapheno us vein appears patent and compressible segmentally. Ordering Physician: Mona Deluna Referring Physician: Fritz Villatoro Performed By: Tracee Hernandez RVT
[2022-06-20] MEDS: Furosemide 40 MG/4 ML Vial IV (17:33)
[2022-06-20] MEDS: Metoprolol Tartrate 5 MG/5 ML Vial IV (17:33)
[2022-06-20] MEDS: 0.9% Saline Lock 10 ML Syringe IV (17:33)
--- NOTE | 2022-06-20 17:34 | CON.PCM_ITS ---
Assessment & Plan Assessment/Plan (1) Alcoholic hepatitis: PLAN: ?I believe her AST ALT ratio and increased bilirubin that she has likely alcoholic hepatitis.? She could also have some drug-induced liver injury.? I recommend Solu-Medrol therapy for her as her Madrey score is 70 for alcoholic hepatitis.? I also recommend Pentoxyphilline therapy for her.? I am also recommending Mucomyst drip for non acetaminophen induced liver failure to hopefully replete her glutathione stores To the best of my knowledge, there has been four prospective studies have reported some benefits of NAC use in [facility] patients.? Her INR is okay at this time which is one of the most strong indicators of how she would do during this hospital stay. I will also check a lactic acid and LDH with ammonia level. She should take prophylactic lactulose and Xifaxan therapy. (2) Thrombocytopenia: PLAN: Thrombocytopenia possibly secondary to acute alcoholic toxicity. Continue to monitor platelets. I will get a CT scan to make sure there is no signs of portal hypertension leading to an enlarged spleen. (3) Hepatomegaly: PLAN: Hepatomegaly with diffuse steatosis consistent with alcoholic induced fatty liver disease. HPI Consult Data Date of Consult: 06/20/22 HPI Narrative Reason for Consultation: Hepatitis HPI Narrative: NU BASURTO,56 F who presented to the hospital with lethargy and jaundice.? Patient has a past medical history of possible alcoholism.? She has been drinking alcohol and in the past had been taking Tylenol due to back pain.? She has a past medical history of TIA, morbid obesity status post gastric bypass..? ?She consumes about 30 g of alcohol per day. Her spouse noticed that he was jaundiced about 2 weeks ago.? She started feeling unwell about a week prior to admission.? She did not notice some worsening abdominal pain with intermittent cramping over the last several days.? She also admitted to some leg swelling without abdominal swelling. ?Also ,she states that about a week ago she has started having pain in her left shoulder which migrated down to her left hip and then moved to her right hip then back to her left hip and up to her left shoulder again.?? She has no previous history of cirrhosis.? Her vitals were stable in the ED however.,? Her laboratory analysis : Her WBC count is 12 hemoglobin 11.0, platelet count 253, INR 1.4, sodium 133, potassium 3.5, chloride 93, bicarbonate 32, BUN is 7, creatinine 0.80, total bilirubin 6.2, WBC 11.91, AST 29, ALT 89, ALP 313, ammonia 64, albumin 2.1, lipase 28, INR 1.5,? UA slightly cloudy, leukocyte esterase positive, nitrite negative +1 bacteria. Ultrasound of the right upper quadrant showed hepatomegaly with steatosis [facility] Medical History Acute post-gastric reduction surgery (APGARS) neuropathy Former smoker Hepatitis Hyperlipidemia Hypertension Lactic acidosis Liver failure TGA (transient global amnesia) TIA (transient ischemic attack) Home Medications fluoxetine 10 mg capsule 10 mg PO PRN PRN depression 01/19/21 [History Last Taken 06/20/22] potassium chloride 20 mEq tablet,extended release(part/cryst) (Klor-Con M) 20 meq PO TID supplement 01/23/22 [History Last Taken 06/20/22] gabapentin 300 mg capsule 300 mg PO TID nerve pain 04/02/22 [History Last Taken 06/20/22] magnesium oxide 400 mg (241.3 mg magnesium) tablet 400 mg PO BID supplement 04/02/22 [History Last Taken 06/19/22] clonidine HCl 0.2 mg tablet 0.2 mg PO DAILY HEART 06/20/22 [History Last Taken 06/20/22] diclofenac potassium 50 mg tablet 50 mg PO TID PRN Pain 06/20/22 [History Last Taken 06/20/22] furosemide 40 mg tablet 40 mg PO DAILY FLUID 06/20/22 [History Last Taken 06/20/22] pantoprazole 20 mg tablet,delayed release 20 mg PO DAILY GERD 06/20/22 [History Last Taken 06/20/22] pentoxifylline 400 mg tablet,extended release 400 mg PO DAILY LIVER 06/20/22 [History Last Taken 06/20/22] Allergy/AdvReac Type Severity Reaction Status Date / Time bee venom protein (honey bee) Allergy Swelling Verified 06/20/22 09:58 Family History Father Hypertension Mother Hypertension Surgical History Gastric bypass status for obesity History of total knee arthroplasty Previous back surgery Social History household members: spouse housing: house Smoking Status: Former smoker alcohol intake: current substance use type: does not use ROS Constitutional Constitutional: Reports anorexia, fatigue, malaise and weakness; Denies change in weight, chills or fever(s) Eyes Eyes: Denies change in vision ENT HEENT: Denies dysphagia, headache(s), nasal congestion, sinus pressure or sore throat Cardiovascular Cardiovascular: Reports dyspnea on exertion and rapid heart rate; Denies chest pain, edema, lightheadedness, orthopnea, palpitations, paroxysmal nocturnal dyspnea or syncope Respiratory/Chest Respiratory/Chest: Reports dyspnea, shortness of breath at rest and shortness of breath with exertion; Denies cough, hemoptysis, productive cough or wheezing Gastrointestinal Gastrointestinal: Reports nausea; Denies abdominal pain, coffee ground emesis, constipation, diarrhea or vomiting Genitourinary Genitourinary: Denies dysuria Musculoskeletal Musculoskeletal: Reports arthralgias, joint pain and other Details: complains of generalised pain Neurologic Neurologic: Denies confusion, dizziness, focal weakness, headache(s), numbness or seizures Psychiatric Psychiatric: Denies anxiety or depression Endocrine Endocrinology: Denies change in body appearance Hematologic/Lymphatic Hematologic/Lymphatic: Denies anemia Physical Exam Const alert and oriented x3 Constitutional Narrative: morbidly obese General Appearance: cooperative Orientation / Consciousness: lethargic HEENT normocephalic, head/scalp atraumatic and hearing grossly normal bilaterally HEENT Narrative: very dry oral mucosal membranes, with dry, parched burnt tongue. Eyes PERRL and EOMs intact bilaterally Eyes Narrative: patient visibly jaundiced Neck no lymphadenopathy and supple Resp normal respiratory effort and clear to auscultation bilaterally Resp Narrative: mildly diminished breath sounds bibasally, few crackles bilaterally. saturating in mid 80s on room air. Cardio regular rhythm, S1 normal heart sound, S2 normal heart sound and no murmurs Cardio Narrative: sinus tachycardia Peripheral Pulses: pulses 2+ throughout GI normal to inspection, nondistended, normoactive bowel sounds, non-tender and non-distended GI Narrative: abdomen obese, soft, nontender, no palpable organomegaly. Oro's sign negative Extremity normal to inspection Extremity Narrative: mild tenderness on palpation of LEs and calves, especially right calf. No visi ble calf swelling General Extremity: edema bilateral lower extremity Details: severe Skin no rashes or lesions noted Skin Narrative: Generalized scabbing. Lower abdomen/pelvis excoriation with yeast appearance. Lesions: no lesions Rashes: no rashes Trauma: no lacerations or abrasions Neuro oriented x3 and CN's II-XII intact bilaterally Sensorium / Orientation: awake Psych mental status grossly normal and affect normal Psych Narrative: flat affect Lab / Micro Data Result Diagrams: 06/20/22 10:55 06/20/22 10:55 Labs: Laboratory Results - last 24 hr 06/20/22 10:55: WBC 12.1 H, RBC 3.84 L, Hgb 9.3 L, Hct 30.5 L, MCV 79.4 L, MCH 24.2 L, MCHC 30.5 L, RDW Std Deviation 67.5 H, RDW Coeff of Arnold 24.8 H, Plt Count 58 L, Immature Gran % (Auto) 1.700 H, Neut % (Auto) 90.6 H, Lymph % (Auto) 4.3 L, Whitfield % (Auto) 3.2, Eos % (Auto) 0.1, Baso % (Auto) 0.1, Absolute Neuts (auto) 11.0 H, Absolute Lymphs (auto) 0.52 L, Nucleated RBC % 0.4, Platelet Estimate MOD DEC, Polychromasia RARE, Hypochromasia 1+, Poikilocytosis 1+, Anisocytosis 2+, Microcytosis 1+, Ovalocytes 1+ 06/20/22 10:55: Sodium 134 L, Potassium 3.4 L, Chloride 97 L, Carbon Dioxide 22.0, Anion Gap 15, BUN 59 H, Creatinine 1.79 H, Estim Creat Clear Calc 34.56, Est GFR (MDRD) Af Amer 37 L, Est GFR (MDRD) Non-Af 31 L, BUN/Creatinine Ratio 33.0 H, Glucose 62 L, Calcium 8.9, Total Bilirubin 6.70 H, Direct Bilirubin 5.52 H, AST 73 H, ALT 31, Alkaline Phosphatase 153 H, Troponin I High Sens 20, Total Protein 7.3, Albumin 2.4 L, Globulin 4.9 H 06/20/22 10:55: Ethyl Alcohol < 3.0 06/20/22 10:55: PT 17.5 H, INR 1.5 06/20/22 10:55: Total Creatine Kinase [address] 06/20/22 10:26 IMPRESSION: Normal unenhanced CT scan of the brain. Electronically Signed: Fransisco Henriquez MD at 13:08 EST Reading Location ID and State: [facility] / [place] , Service support , Cervical Spine CT 06/20/22 10:26 IMPRESSION: Multilevel degenerative changes, as described above. Healing of the previously seen hairline fracture of the right lateral mass of C2. Minimal anterior listhesis of C4 on C5 most likely secondary to the facet joint osteoarthritis. Electronically Signed: Fransisco Henriquez MD at 13:20 EST Reading Location ID and State: [address] [place] [address] , Service support , Hip/Pelvis X-Ray 06/20/22 10:26 IMPRESSION: Normal x-ray examination of the pelvis and hip. Electronically Signed: Fransisco Henriquez MD at 13:15 EST Reading Location ID and State: [address] [place] [address] , Service support , Knee X-Ray 06/20/22 10:26 IMPRESSION: Degenerative arthrosis. Electronically Signed: Fransisco Henriquez MD at 13:10 EST Reading Location ID and State: [facility] / [place] , Service support , Shoulder X-Ray 06/20/22 10:26 IMPRESSION: Normal x-ray examination of the shoulder. Electronically Signed: Fransisco Henriquez MD at 13:16 EST Reading Location ID and State: [facility] / [place] , Service support , Chest X-Ray 06/20/22 12:40 IMPRESSION: Cardiomegaly and CHF. Electronically Signed: Fransisco Henriquez MD at 13:15 EST , Gallbladder Ultrasound 06/20/22 14:37 IMPRESSION: 1. Hepatomegaly and pronounced diffuse hepatic steatosis. 2. No acute abnormality in the abdomen. 3. No significant interval change when compared to 01/23/[address] abdomen. Electronically Signed: Cj Recio MD at 15:52 EST , Charges/Coding Visit Charges Inpatient E&M: 14551 Init Hosp L3
[2022-06-20 18:28] LABS: Erythrocyte Sedimentation Rate 91 mm/hr (0-30)
[2022-06-20 19:55] LABS: Lactic Acid 2.1 mmol/L (0.4-1.9)
[2022-06-20 22:58] LABS: Reflex Lactate? Y
[2022-06-20] MEDS: Lactulose 20 GM/30 ML UDC PO (22:58)
[2022-06-20] MEDS: Magnesium Chloride 64 MG Delay Rel.Tablet 128 MG PO (23:01)
[2022-06-20] MEDS: Menthol/Lanolin/Calamine/Znox 113 GM Tube 1 APPLIC TOPICAL (23:01)
[2022-06-20] MEDS: rifAXIMin 550 MG Tablet PO (23:02)
[2022-06-20] MEDS: Pentoxifylline 400 MG Tablet PO (23:03)
[2022-06-20] MEDS: Gabapentin 300 MG Capsule PO (23:14)
[2022-06-20 23:57] LABS: Lactic Acid 2.7 mmol/L (0.4-1.9)
[2022-06-21] VITALS (53 sets, daily range): BP systolic 51–155; BP diastolic 33–91; PULSE 90–133; RESP 14–29; TEMP 36.1–39.4; O2SAT 90–110
[2022-06-21] MEDS: LORazepam 2 MG/ML Syringe IV ×2 (00:28→06:11)
[2022-06-21] MEDS: 0.9% Saline Lock 10 ML Syringe IV ×2 (00:31→06:12)
[2022-06-21] MEDS: Menthol/Lanolin/Calamine/Znox 113 GM Tube 1 APPLIC TOPICAL ×2 (06:14→21:40)
[2022-06-21 06:52] LABS: Basophil# 0.02 X10^3/uL; Eosinophil# 0.03 X10^3/uL; Hematocrit 28.5 % (37-47); Hemoglobin 8.8 g/dL (12.0-15.0); Mean Corp Hgb Conc 30.9 g/dL (32-36); Mean Corpuscular Hgb 25.4 pg (27.0-32.0); Mean Corpuscular Volume 82.1 fL (81-99); Mean Platelet Vol. 10.6 fl (6.2-12.0); Monocyte# 0.61 X10^3/uL; NRBC Flagged by Analyzer 0.4 % (0-5); POSITIVE COUNT YES; POSITIVE DIFFERENTIAL YES; POSITIVE MORPHOLOGY YES; Platelet Count 79 K/mm3 (150-450); RBC Distribution Width CV 25.1 % (11.6-14.6); RBC Distribution Width SD 70.4 fl (35.1-43.9); Red Blood Count 3.47 M/mm3 (4.2-5.4); White Blood Count 24.5 K/mm3 (4.4-11.0)
[2022-06-21 06:54] LABS: Differential Indicated SCAN CRITERIA MET
[2022-06-21 07:08] LABS: Scan Smear per Review Criteria MANUAL DIFF
[2022-06-21 07:12] LABS: Lymphocyte 8 % (19-41); Metamyelocyte 7 % (0-1); Neutrophil-Band 16 % (0-5); Neutrophil-Segmented 68 % (47-70); Promyelocyte 1 % (0-0); Total Cells Counted 100 (MANUAL DIFF)
[2022-06-21 07:16] LABS: Absolute Lymphocyte Count 1.96 X10^3/uL (0.83-4.51); Lymphocyte # 1.96 X10^3/ul (0.83-4.51)
[2022-06-21 07:17] LABS: Absolute Neutrophil Count 22.6 X10^3/uL (2.0-7.7); Neutrophil # 22.58 X10^3/uL (2.7-7.7)
[2022-06-21 07:18] LABS: Platelet Estimate MOD DEC (ADEQ)
[2022-06-21 07:20] LABS: Macrocytosis 1+; Microcytosis 1+
[2022-06-21 07:21] LABS: Polychromasia RARE
[2022-06-21 07:22] LABS: ALB/GLOB Ratio 0.5 RATIO (0.9-2.4); AST(SGOT) 88 U/L (15-37); Alanine Aminotransfer ALT/SGPT 32 U/L (13-56); Alkaline Phosphatase 106 U/L (45-117); Anion Gap 19 (5-15); BUN 70 mg/dL (7-18); BUN/Creat Ratio 30.2 RATIO (10-20); Calcium,Total 8.4 mg/dL (8.5-10.1); Chloride 101 mmol/L (98-107); Creatinine, Serum 2.32 mg/dL (0.55-1.02); EST Glomerular Filtration Rate 23 mL/min (>60); Est Glom Filt Rate - Afr Amer 28 mL/min (>60); Estimated Creatinine Clearance 26.66 ml/min; Globulin 4.2 g/dL (2.2-4.2); Glucose 44 mg/dL (74-106); Potassium 3.7 mmol/L (3.5-5.1); Protein, Total 6.2 g/dL (6.4-8.2); Sodium Level 137 mmol/L (136-145); Toxic Granulation 1+
--- NOTE | 2022-06-21 07:35 | NURSING ---
Nightshift RACHEL Abbott brought into room with this nurse as pt is very drowsy and lethargic and blood is noted coming down from mouth. This nurse and RACHEL Abbott clean mouth and try to awaken pt. Pt moans as this nurse cleans out mouth, and does open up mouth once when this nurse cues to do so. Will continue to monitor
--- NOTE | 2022-06-21 08:10 | NURSING ---
This nurse gives amp of D50 to help raise blood glucose from 44, will continue to monitor
[2022-06-21] MEDS: Dextrose 50%-Water 25 GM/50 ML DISP.SYRIN IV ×2 (08:11→10:23)
--- NOTE | 2022-06-21 08:11 | NURSING ---
Dr. Hernandez is at bedside with pt and this nurse. He notices that this pt has blood coming from her mouth, this nurse explains that he tried swabbing mouth and cleaning it out. Pt was not appropriate in order to take oral meds or oral intake at all. Dr Hernandez unsure of source of bleeding. He states that based on VS she may need intubated and plans to transfer pt to ICU
--- NOTE | 2022-06-21 08:29 | PCM.PN.HOSP ---
Subjective Subjective Patient is a 56-year-old lady admitted with multiple vague symptoms including generalized weakness. Patient was reported to have been drinking excessively. Initial assessment demonstrated abnormal LFTs as well as radiographic findings consistent with congestive heart failure with preserved ejection fraction. Patient was started on Lasix and admitted to a monitored bed. Consult was also placed to gastroenterology on admission. Patient was started on lorazepam taper given her heavy use of alcohol. Patient was found to be hypoglycemic on the morning following her admission. An order was given for D50. Patient was found later to be lethargic tachycardic with bleeding in the mouth. Review of diagnostic work-up was consistent with possible sepsis. Patient started on IV fluid sepsis protocol initiated patient transferred to the intensive care unit. Patient went into cardiopulmonary arrest moments after arriving in the ICU. Patient was successfully resuscitated using ACLS protocol intubated and placed on the vent Objective Data Objective Data Vital Signs: Vital Signs Temp Pulse Resp BP Pulse Ox O2 Del Method O2 Flow Rate 97.4 F L 130 H 29 H 89/56 L 94 Nasal Cannula 5 06/21/22 08:16 06/21/22 08:16 06/21/22 08:16 06/21/22 08:16 06/21/22 08:16 06/21/22 08:16 06/21/22 08:16 Oxygen Flow Rate (L/min) 5 Oxygen Delivery Method Nasal Cannula Weight: 111.538 kg Body Mass Index (BMI) 37.3 Intake & Output: Intake and Output for Last 24 Hours 06/19/22 06/20/22 06/21/22 23:59 23:59 23:59 Intake Total 1000 / 1100 100 / 100 Balance 1000 / 1100 100 / 100 Lab / Micro Data Result Diagrams: 06/21/22 06:31 06/21/22 06:31 Labs: Laboratory Results - last 24 hr 06/20/22 10:55: WBC 12.1 H, RBC 3.84 L, Hgb 9.3 L, Hct 30.5 L, MCV 79.4 L, MCH 24.2 L, MCHC 30.5 L, RDW Std Deviation 67.5 H, RDW Coeff of Arnold 24.8 H, Plt Count 58 L, Immature Gran % (Auto) 1.700 H, Neut % (Auto) 90.6 H, Lymph % (Auto) 4.3 L, [place] % (Auto) 3.2, Eos % (Auto) 0.1, Baso % (Auto) 0.1, Absolute Neuts (auto) 11.0 H, Absolute Lymphs (auto) 0.52 L, Nucleated RBC % 0.4, Platelet Estimate MOD DEC, Polychromasia RARE, Hypochromasia 1+, Poikilocytosis 1+, Anisocytosis 2+, Microcytosis 1+, Ovalocytes 1+ 06/20/22 10:55: Sodium 134 L, Potassium 3.4 L, Chloride 97 L, Carbon Dioxide 22.0, Anion Gap 15, BUN 59 H, Creatinine 1.79 H, Estim Creat Clear Calc 34.56, Est GFR (MDRD) Af Amer 37 L, Est GFR (MDRD) Non-Af 31 L, BUN/Creatinine Ratio 33.0 H, Glucose 62 L, Calcium 8.9, Total Bilirubin 6.70 H, Direct Bilirubin 5.52 H, AST 73 H, ALT 31, Alkaline Phosphatase 153 H, Troponin I High Sens 20, Total Protein 7.3, Albumin 2.4 L, Globulin 4.9 H 06/20/22 10:55: Ethyl Alcohol < 3.0 06/20/22 10:55: PT 17.5 H, INR 1.5 06/20/22 10:55: Total Creatine Kinase 173 06/20/22 10:55: ESR 91 H 06/20/22 10:55: C-React Prot Ext Range 416.00 H 06/20/22 18:40: Lactic Acid 2.1 H* 06/20/22 23:06: Lactic Acid 2.7 H* 06/21/22 06:31: WBC 24.5 H, RBC 3.47 L, Hgb 8.8 L, Hct 28.5 L, MCV 82.1, MCH 25.4 L, MCHC 30.9 L, RDW Std Deviation 70.4 H, RDW Coeff of Arnold 25.1 H, Plt Count 79 L, MPV 10.6, Immature Gran % (Auto) BREAKFAST HOSTESS, Neut % (Auto) BREAKFAST HOSTESS, Lymph % (Auto) BREAKFAST HOSTESS, [place] % (Auto) BREAKFAST HOSTESS, Eos % (Auto) BREAKFAST HOSTESS, Baso % (Auto) BREAKFAST HOSTESS, Absolute Neuts (auto) 22.6 H, Absolute Lymphs (auto) 1.96, Total Counted 100, Neutrophils % (Manual) 68, Band Neutrophils % 16 H, Lymphocytes % (Manual) 8 L, Metamyelocytes % 7 H, Promyelocytes % 1 H, Nucleated RBC % 0.4, Diff Path Review May foll, Toxic Granulation 1+, Platelet Estimate MOD DEC, Polychromasia RARE, Microcytosis 1+, Macrocytosis 1+ 06/21/22 06:31: Sodium 137, Potassium 3.7, Chloride 101, Carbon Dioxide 17.0 L, Anion Gap 19 H, BUN 70 H, Creatinine 2.32 H, Estim Creat Clear Calc 26.66, Est GFR (MDRD) Af Amer 28 L, Est GFR (MDRD) Non-Af 23 L, BUN/Creatinine Ratio 30.2 H, Glucose 44 L*, Calcium 8.4 L, Total Bilirubin 7.40 H, AST 88 H, ALT 32, Alkaline Phosphatase 106, Total Protein 6.2 L, Albumin 2.0 L, Globulin 4.2, Albumin/Globulin Ratio 0.5 L Radiography Diagnostic Testing: Radiology Impression Brain CT 06/20/22 10:26 IMPRESSION: Normal unenhanced CT scan of the brain. Electronically Signed: Fransisco Henriquez MD at 13:08 EST Reading Location ID and State: 603 / [place] , Service support , Cervical Spine CT 06/20/22 10:26 IMPRESSION: Multilevel degenerative changes, as described above. Healing of the previously seen hairline fracture of the right lateral mass of C2. Minimal anterior listhesis of C4 on C5 most likely secondary to the facet joint osteoarthritis. Electronically Signed: Fransisco Henriquez MD at 13:20 EST , Hip/Pelvis X-Ray 06/20/22 10:26 IMPRESSION: Normal x-ray examination of the pelvis and hip. Electronically Signed: Fransisco Henriquez MD at 13:15 EST Reading Location ID and State: [place] / [place] , Service support , Knee X-Ray 06/20/22 10:26 IMPRESSION: Degenerative arthrosis. Electronically Signed: Fransisco Henriquez MD at 13:10 EST , Shoulder X-Ray 06/20/22 10:26 IMPRESSION: Normal x-ray examination of the shoulder. Electronically Signed: Fransisco Henriquez MD at 13:16 EST , Chest X-Ray 06/20/22 12:40 IMPRESSION: Cardiomegaly and CHF. Electronically Signed: Fransisco Henriquez MD at 13:15 EST , Gallbladder Ultrasound 06/20/22 14:37 IMPRESSION: 1. Hepatomegaly and pronounced diffuse hepatic steatosis. 2. No acute abnormality in the abdomen. 3. No significant interval change when compared to 01/23/[address] abdomen. Electronically Signed: Cj Recio MD at 15:52 EST Reading Location ID and State: [facility] / [place] , Service support , Physical Exam Narrative GENERAL: Patient lethargic HEENT: Atraumatic; bleeding from buccal cavity EYES; icteric, Normal Conjunctiva NECK; supple, normal thyroid, RESPIRATORY: Diminished to auscultation CARDIOVASCULAR: Regular S1 S2, tachycardic GI: soft, normoactive bowel sounds, : No Renal angle tenderness; EXTREMITIES: No edema, no clubbing, MUSCULOSKELETAL: no muscle wasting NEURO: Patient encephalopathic SKIN: Icteric PSYCH; flat affect Assessment & Plan Assessment/Plan (1) Cardiopulmonary arrest with successful resuscitation: (2) Septic shock: PLAN: Plan Patient is a 56-year-old lady admitted with multiple vague symptoms including generalized weakness. Patient was reported to have been drinking excessively. Initial assessment demonstrated abnormal LFTs as well as radiographic findings consistent with congestive heart failure with preserved ejection fraction. Patient was started on Lasix and admitted to a monitored bed. Consult was also placed to gastroenterology on admission. Patient was started on lorazepam taper given her heavy use of alcohol. Patient was found to be hypoglycemic on the morning following her admission. An order was given for D50. Patient was found later to be lethargic tachycardic with bleeding in the mouth. Review of diagnostic work-up was consistent with possible sepsis. Patient started on IV fluid sepsis protocol initiated patient transferred to the intensive care unit. Patient went into cardiopulmonary arrest moments after arriving in the ICU. Patient was successfully resuscitated using ACLS protocol intubated and placed on the vent 1. Septic shock ? Etiology not clear at this point but this is evidenced by patient leukocytosis, lactic acidosis, WBC count with left differential. Treatment initiated per protocol with broad-spectrum antibiotic therapy IV fluid resuscitation after cultures have been sent. Order given for patient to be transferred to the intensive care unit. Plan is to initiate patient pressor if patient fails to respond to initial fluid resuscitation 2. Acute hypoxic respiratory failure Patient went into cardiopulmonary arrest movement after arriving in the ICU successfully resuscitated using ACLS protocol and left on the vent. Vent orders written consultation placed to munitions handler. Case had been discussed with Dr. Mott prior to patient going into cardiopulmonary arrest 3. Cardiopulmonary arrest ? Suspected to be secondary to patient metabolic derangement including severe metabolic acidosis. Patient was successfully resuscitated using ACLS protocol 4. Combined respiratory and metabolic acidosis Initial ABG demonstrated pH of 6.98, base excess of -19 PCO2 of 54.2. CO2 on patient BMP was 14. Plan is to treat patient underlying etiology including septic shock and acute kidney injury. We will repeat ABG and if patient remains acidotic patient will be started on bicarb drip 5. Acute kidney injury ? Suspected to be secondary to ATN from patient septic shock patient is on IV fluids. Patient had been given diuretics for suspected congestive heart failure diuretics subsequently discontinued 6. Acute transaminitis ? With AST being greater than ALT with ratio greater than 221. This was thought to be secondary to patient chronic alcohol use 7. Chronic alcohol dependence ? Patient was started on Ativan for suspected alcohol withdrawal at this has since been discontinued patient is currently on the vent 8. Thrombocytopenia ? Secondary to chronic alcohol use; Monitoring with daily CBC 9. Hepatosteatosis ? Secondary to chronic alcohol use patient was seen in consultation by Dr. Ocampo with GI he is noted recommendations reviewed. Patient was started on, lactulose rifaximin and methylprednisolone by Dr. Ocampo 10. DVT prophylaxis ? Bilateral SCDs 11. Hypomagnesemia ? Corrected per protocol 12. Hypokalemia ? Corrected per protocol Total critical care time spent evaluating patient, writing of CODE BLUE, subsequent evaluation, adjustment of therapy or medication, discussion with other providers involved in patient care and subsequent review of patient; 90 minutes Sepsis Attestation Sepsis Alert: Yes Sepsis Attestation: Agree w/Sepsis Date exam was performed: 06/21/22 Time exam was performed: 08:30 Possible Source of Sepsis: Unknown Sepsis Organ Dysfunction Criteria Present: SBP < 90 mmHg or MAP < 65 mmHg, SBP decrease of more than 40 mmHg, Acute Respiratory Failure (New need for BiPAP/CPAP or MV), Creatinine > 2.0 mg/dL, UOP < 0.5 mL/kg/hour for 2 consecutive hours, Total Bilirubin > 2 mg/dl, Serum CO2 < 20 mmol/L (on BMP) and New/Unexplained change in mental status Fluid Resuscitation Fluid resuscitation indicated?: Yes Fluid Resuscitation ordered: 30 ml/kg fluid bolus ordered Sepsis Note Date exam was performed: 06/21/22 Time exam was performed: 11:57 Response to fluids: Vasopressors started Charges/Coding Procedures Hospitalists Procedures: 76560 Critial Care 1st Hr Multi Select Codes Hospitalists' Procedures Procedures: 81223 Critial Care Addl 30 Min
--- NOTE | 2022-06-21 08:31 | RAD_ITS ---
STUDY: X-RAY CHEST REASON FOR EXAM: Female, 56 years old. Sepsis TECHNIQUE: Single frontal view of the chest. COMPARISON: 06/20/2022 FINDINGS: There are prominent interstitial markings associated with ill-defined opacities within the lower lungs. It is indeterminate 1.7 cm nodular opacity projecting over the left lower lung. There is cardiomegaly. Normal mediastinum and ishmael. Normal visualized pulmonary arteries. Normal visualized aortic arch and descending thoracic aorta. Normal visualized thoracic spine. Normal visualized ribs, clavicles, and shoulders. There is no demonstrated abnormality of the visualized soft tissue structures of the upper abdomen. RAD/Chest 1 View (Portable) IMPRESSION: Prominent interstitial markings associated with ill defined opacities within the lower lungs may be secondary to edema and/or an infectious process. Indeterminate 1.7 cm nodular opacity projecting over the left lower lung, may be secondary to a confluence of shadows however cannot exclude a pulmonary nodule. Cardiomegaly. Electronically Signed: Sydney Floyd MD at 8:46 EST ,
[2022-06-21 08:56] LABS: Bedside Glucose 93 mg/dL (74-106)
--- NOTE | 2022-06-21 09:19 | NURSING ---
Pt transported to ICU by this nurse and supercharge repair supervisor Megan. Report given to RACHEL Mckinney
--- NOTE | 2022-06-21 09:42 | RAD_ITS ---
STUDY: X-RAY CHEST REASON FOR EXAM: Female, 56 years old. Et tube og placement TECHNIQUE: 2 frontal images of the chest were obtained. COMPARISON: 06/21/2022 at 8:33 AM. FINDINGS: There is an endotracheal tube in place terminating 8 mm above the yoanna. There is an enteric tube in place terminating caudal to the inferior margin of the image. There are bilateral ill-defined opacities. Normal size heart. Normal mediastinum and ishmael. Normal visualized pulmonary arteries. Normal visualized aortic arch and descending thoracic aorta. Normal visualized thoracic spine. Normal visualized ribs, clavicles, and shoulders. There is no demonstrated abnormality of the visualized soft tissue structures of the upper abdomen. RAD/Chest 1 View (Portable) IMPRESSION: The endotracheal tube terminating 8 mm above the yoanna, recommend retraction by 2 to 3 cm. Enteric tube terminating caudal to the inferior margin of the image, consider imaging the mid and upper abdomen for further evaluation. Bilateral ill-defined opacities concerning for multifocal pneumonia and/or edema. Electronically Signed: Sydney Floyd MD at 10:22 EST ,
[2022-06-21 09:45] LABS: Base Excess -15 mmol/L (-2 to +2); Blood Gas Specimen Type ART; FI02 100; O2 Delivery Device Bagging; PO2 186 mmHG (75-100); SITE L Radial; SO2 99 % (95-99); Total Carbon Dioxide 18 mmol/L; pCO2 60.3 mmHg (35-45); pH 7.03 (7.35-7.45)
[2022-06-21] MEDS: 0.9% Normal Saline 1,000 ML 999 ML IV ×2 (09:55→11:09)
--- NOTE | 2022-06-21 09:57 | CASEMGMT ---
RN CM assessment deferred today d/t code blue called. SStaten RN CM
[2022-06-21 10:46] LABS: Allen Test Positive; Base Excess -19 mmol/L (-2 to +2); Bicarbonate 12.7 mmol/L (22-26); Blood Gas Specimen Type ART; FI02 70; Mode AC; O2 Delivery Device Adult Vent; PEEP 5; PO2 113 mmHG (75-100); RR 14; SITE L Radial; SO2 95 % (95-99); Total Carbon Dioxide 14 mmol/L; Vt 450; pCO2 54.2 mmHg (35-45); pH 6.98 (7.35-7.45)
[2022-06-21 10:56] LABS: Bedside Glucose 133 mg/dL (74-106)
[2022-06-21 10:56] LABS: Bedside Glucose 26 mg/dL (74-106)
--- NOTE | 2022-06-21 11:35 | PCM.OP.PRO ---
Assessment & Plan Assessment/Plan (1) Cardiopulmonary arrest with successful resuscitation: PLAN: Plan Intubation Indication: [CPA] Consent was obtained from: [Emergent] The patient was placed in the appropriate sniffing position. No sedation was required. The patient had continuous cardiac as well as pulse oximetry monitoring during the procedure. Direct laryngoscopy was then performed using a number [4] blade, which revealed a grade [2] view. A [7.5] mm endotracheal tube was visualized advancing between the cords to the level of [25] cm at the lip. The stylette was then removed and discarded. Tube placement was confirmed by fogging in the tube along with equal and bilateral breath sounds. Colorimetric change was visualized on the CO2 meter. The cuff was then inflated and the tube secured using a commercially available device. A good pulse oximetry waveform was seen on the monitor throughout the procedure. A portable chest x-ray has been ordered to confirm appropriate placement. The patient tolerated the procedure well. Procedures Hospitalists Procedures: 10551 Insert Emergency Airway
--- NOTE | 2022-06-21 11:47 | PCM.CODE.SUM ---
Code Blue Report Code Blue Summary Code Blue Summary: Patient is a 56-year-old female who has been assessed with septic shock transferred to the intensive care unit went into cardiopulmonary arrest moments after arriving in the ICU. MATIAS BLUE was called. Patient resuscitation initiated using ACLS protocol with continuous CPR and use of epinephrine. Patient was intubated by Dr. Ramon during the CODE BLUE. Patient resuscitation was successful with ROSC. Patient left on the vent orders written. Treatment of underlying etiology initiated
[2022-06-21 12:10] LABS: Bedside Glucose 88 mg/dL (74-106)
[2022-06-21 12:17] LABS: Lactic Acid 11.1 mmol/L (0.4-1.9)
[2022-06-21 13:41] LABS: Absolute Neutrophil Count 32.9 X10^3/uL (2.0-7.7); Basophil# 0.04 X10^3/uL; Basophil% 0.1 % (0-1); Eosinophil# 0.03 X10^3/uL; Eosinophils% 0.1 % (0-5); Hemoglobin 7.9 g/dL (12.0-15.0); Lymphocyte % 6.7 % (19-41); Mean Corp Hgb Conc 30.4 g/dL (32-36); Mean Corpuscular Hgb 25.6 pg (27.0-32.0); Mean Corpuscular Volume 84.4 fL (81-99); Mean Platelet Vol. 10.5 fl (6.2-12.0); Monocyte# 1.13 X10^3/uL; Monocyte% 2.9 % (0-10); NRBC Flagged by Analyzer 1.1 % (0-5); Neutrophil # 32.91 X10^3/uL (2.7-7.7); Neutrophil % 85.5 % (47-70); POSITIVE COUNT YES; POSITIVE DIFFERENTIAL YES; POSITIVE MORPHOLOGY YES; Platelet Count 91 K/mm3 (150-450); RBC Distribution Width SD 73.2 fl (35.1-43.9); Red Blood Count 3.08 M/mm3 (4.2-5.4); White Blood Count 38.5 K/mm3 (4.4-11.0)
[2022-06-21 13:52] LABS: Differential Indicated SCAN CRITERIA MET
[2022-06-21 13:53] LABS: ALB/GLOB Ratio 0.5 RATIO (0.9-2.4); AST(SGOT) 218 U/L (15-37); Alanine Aminotransfer ALT/SGPT 41 U/L (13-56); Albumin, Serum 1.8 g/dL (3.2-5.0); Alkaline Phosphatase 121 U/L (45-117); Anion Gap 14 (5-15); BUN 73 mg/dL (7-18); BUN/Creat Ratio 27.4 RATIO (10-20); Calcium,Total 7.7 mg/dL (8.5-10.1); Chloride 105 mmol/L (98-107); Creatinine, Serum 2.66 mg/dL (0.55-1.02); EST Glomerular Filtration Rate 20 mL/min (>60); Est Glom Filt Rate - Afr Amer 24 mL/min (>60); Estimated Creatinine Clearance 23.26 ml/min; Globulin 3.8 g/dL (2.2-4.2); Glucose 134 mg/dL (74-106); Protein, Total 5.6 g/dL (6.4-8.2); Sodium Level 141 mmol/L (136-145)
[2022-06-21 14:07] LABS: Mucous, Urine 0 SEEN /hpf (<or=2+); Red Blood Cells-Urine 0 SEEN /hpf (0-5)
[2022-06-21 14:09] LABS: Color, Urine Yellow (Yellow); Glucose, Dipstick Normal (Normal); Ketone-Dipstick 5 mg/dl (Negative); Leukocyte Esterase-Dipstick 500 /ul (Negative); Nitrite-Dipstick Positive (Negative); Occult Blood-Urine 250 /ul (Negative); Protein-Dipstick 30 mg/dl (Negative); Specific Gravity, Urine 1.015 (1.002-1.030); Urine Bilirubin Dipstick 1 mg/dL (Negative); Urine Clarity Cloudy (Clear); Urine Urobilinogen 1 mg/dl (Normal)
[2022-06-21 14:38] LABS: Squamous Epithelial Cells - UA 5-10 SEEN /hpf (5-10)
[2022-06-21 14:39] LABS: Bacteria 1+ /hpf (None Seen); White Blood Cells 10-25 SEEN /hpf (0-5)
[2022-06-21 14:52] LABS: Allen Test Positive; Base Excess -9 mmol/L (-2 to +2); Bicarbonate 19.7 mmol/L (22-26); Blood Gas Specimen Type ART; FI02 70; Mode AC; O2 Delivery Device Adult Vent; PEEP 5; PO2 76 mmHG (75-100); RR 14; SITE L Brach; SO2 91 % (95-99); Total Carbon Dioxide 21 mmol/L; Vt 450; pCO2 52.2 mmHg (35-45); pH 7.19 (7.35-7.45)
[2022-06-21] MEDS: Acetaminophen 650 MG/20 ML UDC GT (15:29)
--- NOTE | 2022-06-21 15:30 | PCM.RX.CS ---
Consult Pharmacy has been consulted to manage selected antiobiotic: Vancomycin Type of Consult: New start Suspected Infection: Sepsis Prior Doses of Antibiotics Received/Current Regimen: Received 2gm iv x 1 as loading dose on 06.21.22. Labs: Sodium 141 mmol/L (136-145) 06/21/22 13:25 Potassium 4.0 mmol/L (3.5-5.1) 06/21/22 13:25 Chloride 105 mmol/L (98-107) 06/21/22 13:25 Carbon Dioxide 22.0 mmol/L (21.0-32.0) 06/21/22 13:25 Anion Gap 14 (5-15) 06/21/22 13:25 BUN 73 mg/dL (7-18) H 06/21/22 13:25 Creatinine 2.66 mg/dL (0.55-1.02) H 06/21/22 13:25 Est GFR (MDRD) Af Amer 24 mL/min (>60) L 06/21/22 13:25 Est GFR (MDRD) Non-Af 20 mL/min (>60) L 06/21/22 13:25 BUN/Creatinine Ratio 27.4 RATIO (10-20) H 06/21/22 13:25 Glucose 134 mg/dL (74-106) H 06/21/22 13:25 Microbiology: Microbiology 06/21/22 14:00 Urine Catheter - Catheter Streptococcus pneumoniae Antigen (M - Final 06/21/22 14:00 Urine Catheter - [place]ente Legionella Antigen - Final 06/21/22 10:03 Mucosa - Nose - Final Weight used for dosin.5 kg Estimated Creatinine Clearance: ~30ml/min Goal Trough: 15-20 mcg/mL Pharmacy Plan for Drug Dosing: Per review of renal function Cr 2.66 , SCrCl calculated to be ~30ml/min using adjusted body weight of 82.7kg. Will start 1500mg iv q24h beginning 24hr after loading dose of 2gm. Trough level ordered for before 3rd total dose. Pharmacy Service will continue to monitor and adjust dosing as required. Follow-Up Labs: Trough Vancomycin - 06.23.22 @1330 before 1400 dose
[2022-06-21 15:42] LABS: Reflex Lactate? Y
--- NOTE | 2022-06-21 15:45 | PCM.PROGNOTE ---
Subjective Subjective Overnight patient went into cardiopulmonary arrest. She was intubated and was successfully resuscitated. She remains intubated and on 2 IV pressors. She has been nonresponsive. Her last blood gas does show some improvement. Objective Data Objective Data Vital Signs: Vital Signs Temp Pulse Resp BP Pulse Ox O2 Del Method O2 Flow Rate 102 F H 110 H 20 H 96/55 L 92 Mechanical Ventilator 4 06/21/22 15:00 06/21/22 15:00 06/21/22 15:00 06/21/22 15:00 06/21/22 15:00 06/21/22 15:00 06/21/22 09:00 FiO2 70 06/21/22 15:00 Oxygen Flow Rate (L/min) 4 Oxygen Delivery Method Mechanical Ventilator Weight: 245 lb 13.047 oz Body Mass Index (BMI) 37.3 Intake & Output: Intake and Output for Last 24 Hours 06/19/22 06/20/22 06/21/22 23:59 23:59 23:59 Intake Total 1000 / 1100 2044.08 / 2044.08 Output Total 500 / 500 Balance 1000 / 1100 1544.08 / 1544.08 Lab / Micro Data Result Diagrams: 06/21/22 13:25 06/21/22 13:25 Labs: Laboratory Results - last 24 hr 06/20/22 10:55: ESR 91 H 06/20/22 10:55: C-React Prot Ext Range 416.00 H 06/20/22 18:40: Lactic Acid 2.1 H* 06/20/22 23:06: Lactic Acid 2.7 H* 06/21/22 06:31: WBC 24.5 H, RBC 3.47 L, Hgb 8.8 L, Hct 28.5 L, MCV 82.1, MCH 25.4 L, MCHC 30.9 L, RDW Std Deviation 70.4 H, RDW Coeff of Arnold 25.1 H, Plt Count 79 L, MPV 10.6, Immature Gran % (Auto) FIRE EQUIPMENT INSPECTOR, Neut % (Auto) FIRE EQUIPMENT INSPECTOR, Lymph % (Auto) FIRE EQUIPMENT INSPECTOR, Newton % (Auto) FIRE EQUIPMENT INSPECTOR, Eos % (Auto) FIRE EQUIPMENT INSPECTOR, Baso % (Auto) FIRE EQUIPMENT INSPECTOR, Absolute Neuts (auto) 22.6 H, Absolute Lymphs (auto) 1.96, Total Counted 100, Neutrophils % (Manual) 68, Band Neutrophils % 16 H, Lymphocytes % (Manual) 8 L, Metamyelocytes % 7 H, Promyelocytes % 1 H, Nucleated RBC % 0.4, Diff Path Review December, Toxic Granulation 1+, Platelet Estimate MOD DEC, Polychromasia RARE, Microcytosis 1+, Macrocytosis 1+ 06/21/22 06:31: Sodium 137, Potassium 3.7, Chloride 101, Carbon Dioxide 17.0 L, Anion Gap 19 H, BUN 70 H, Creatinine 2.32 H, Estim Creat Clear Calc 26.66, Est GFR (MDRD) Af Amer 28 L, Est GFR (MDRD) Non-Af 23 L, BUN/Creatinine Ratio 30.2 H, Glucose 44 L*, Calcium 8.4 L, Total Bilirubin 7.40 H, AST 88 H, ALT 32, Alkaline Phosphatase 106, Total Protein 6.2 L, Albumin 2.0 L, Globulin 4.2, Albumin/Globulin Ratio 0.5 L 06/21/22 08:38: POC Glucose 93 06/21/22 10:18: POC Glucose 26 L* 06/21/22 10:35: POC Glucose 133 H 06/21/22 11:35: Lactic Acid 11.1 H* 06/21/22 11:50: POC Glucose 88 06/21/22 13:25: WBC 38.5 H*, RBC 3.08 L, Hgb 7.9 L, Hct 26.0 L, MCV 84.4, MCH 25.6 L, MCHC 30.4 L, RDW Std Deviation 73.2 H, RDW Coeff of Arnold 25.0 H, Plt Count 91 L, MPV 10.5, Immature Gran % (Auto) 4.700 H, Neut % (Auto) 85.5 H, Lymph % (Auto) 6.7 L, [place] % (Auto) 2.9, Eos % (Auto) 0.1, Baso % (Auto) 0.1, Absolute Neuts (auto) 32.9 H, Absolute Lymphs (auto) 2.60, Nucleated RBC % 1.1, Diff Path Review December kamla 06/21/22 13:25: Sodium 141, Potassium 4.0, Chloride 105, Carbon Dioxide 22.0, Anion Gap 14, BUN 73 H, Creatinine 2.66 H, Estim Creat Clear Calc 23.26, Est GFR (MDRD) Af Amer 24 L, Est GFR (MDRD) Non-Af 20 L, BUN/Creatinine Ratio 27.4 H, Glucose 134 H, Calcium 7.7 L, Total Bilirubin 7.30 H, AST 218 H, ALT 41, Alkaline Phosphatase 121 H, Total Protein 5.6 L, Albumin 1.8 L, Globulin 3.8, Albumin/Globulin Ratio 0.5 L 06/21/22 14:00: Urine Color Yellow, Urine Clarity Cloudy, Urine pH 6.0, Ur Specific [place] 1.015, Urine Protein 30 H, Urine Glucose (UA) Normal, Urine Ketones 5 H, Urine Occult Blood 250 H, Urine Nitrite Positive H, Urine Bilirubin 1 H, Urine Urobilinogen 1 H, Ur Leukocyte Esterase 500 H, Urine RBC 0 SEEN, Urine WBC 10-25 SEEN, Ur Squamous Epith Cells 5-10 SEEN, Urine Bacteria 1+, Urine Mucus 0 SEEN Micro: Microbiology 06/21/22 14:00 Urine Catheter - Catheter Streptococcus pneumoniae Antigen (M - Final 06/21/22 14:00 Urine Catheter - De [place] Fuente Legionella Antigen - Final 06/21/22 10:03 Mucosa - Nose - Final ABG Data ABG results: ABG 06/21/22 06/21/22 06/21/22 09:38 10:39 14:45 Specimen Type ART ART ART Sample Site L Radial L Radial L Brach pH 7.03 L* 6.98 L* 7.19 L* Bicarbonate Actual 16.0 L 12.7 L 19.7 L Total CO2 18 14 21 Base Excess -15 L -19 L -9 L O2 Saturation 99 95 91 L O2 % 100 70 70 ABG pCO2 60.3 H 54.2 H 52.2 H ABG pO2 186 H 113 H 76 Lawrence Test Positive Positive Respiration Rate 14 14 O2 Delivery Device Bagging Adult Vent Adult Vent Vent Mode AC AC Tidal Volume 450 450 POC PEEP 5 5 Crit Call To/Read Back Yes Yes Yes Blood Gas Notified Whom DR ELENA saamniego Radiography Diagnostic Testing: Radiology Impression Gallbladder Ultrasound 06/20/22 14:37 IMPRESSION: 1. Hepatomegaly and pronounced diffuse hepatic steatosis. 2. No acute abnormality in the abdomen. 3. No significant interval change when compared to 01/23/[address] abdomen. Electronically Signed: Cj Recio MD at 15:52 EST , Chest X-Ray 06/21/22 08:31 IMPRESSION: Prominent interstitial markings associated with ill defined opacities within the lower lungs may be secondary to edema and/or an infectious process. Indeterminate 1.7 cm nodular opacity projecting over the left lower lung, may be secondary to a confluence of shadows however cannot exclude a pulmonary nodule. Cardiomegaly. Electronically Signed: Sydney Floyd MD at 8:46 EST , Chest X-Ray 06/21/22 09:42 IMPRESSION: The endotracheal tube terminating 8 mm above the yoanna, recommend retraction by 2 to 3 cm. Enteric tube terminating caudal to the inferior margin of the image, consider imaging the mid and upper abdomen for further evaluation. Bilateral ill-defined opacities concerning for multifocal pneumonia and/or edema. Electronically Signed: Sydney Floyd MD at 10:22 EST , Physical Exam Narrative GENERAL: Patient lethargic HEENT: Atraumatic; bleeding from buccal cavity EYES; icteric, Normal Conjunctiva NECK; supple, normal thyroid, RESPIRATORY: Diminished to auscultation CARDIOVASCULAR: Regular S1 S2, tachycardic GI: soft, normoactive bowel sounds, : No Renal angle tenderness; EXTREMITIES: No edema, no clubbing, MUSCULOSKELETAL: no muscle wasting NEURO: Patient encephalopathic SKIN: Icteric PSYCH; flat affect Assessment & Plan Assessment/Plan (1) Septic shock: PLAN: From an unknown source at this time. She is on broad-spectrum antibiotic therapy. Guarded prognosis. (2) Thrombocytopenia: PLAN: Thrombocytopenia possibly secondary to acute alcoholic toxicity.? Continue to monitor platelets.? I will get a CT scan to make sure there is no signs of portal hypertension leading to an enlarged spleen. (3) Alcoholic hepatitis: PLAN: I recommend to stop Solu-Medrol therapy for her alcoholic hepatitis even though her Madrey score is 70 for alcoholic hepatitis.? I recommend to continue Pentoxyphilline and N-acetylcysteine therapy for her.? I am also recommending Mucomyst drip for non acetaminophen induced liver failure to hopefully replete her glutathione stores She should also continue prophylactic lactulose and Xifaxan therapy. (4) Hepatomegaly: PLAN: Hepatomegaly with diffuse steatosis consistent with alcoholic induced fatty liver disease. Charges/Coding Visit Charges Inpatient E&M: 11158 Subs Hosp L3
[2022-06-21 16:37] LABS: Lactic Acid 5.4 mmol/L (0.4-1.9)
[2022-06-21 17:43] LABS: Amphetamine Urine VISTA NEGATIVE (<1000 ng/mL); Barbiturate Urine VISTA NEGATIVE (< 200 ng/mL); Benzodiazepine Urine VISTA NEGATIVE (< 200 ng/mL); Cocaine Urine VISTA NEGATIVE (< 300 ng/mL); Ecstacy Urine VISTA NEGATIVE (< 500 ng/mL); Methadone Urine VISTA NEGATIVE (< 300 ng/mL); PCP Urine VISTA NEGATIVE (< 25 ng/mL); THC Urine VISTA NEGATIVE (< 50 ng/mL); Vista UDS pH Range 4
--- NOTE | 2022-06-21 20:13 | NURSING ---
Nurse notified MD of pt decreasing BP with maps in low 50's. MD to bedside to evaluate patient. Orders to draw H&H and shut off precedex given. Will continue to monitor patient.
[2022-06-21 20:35] LABS: Hematocrit 23.9 % (37-47); POSITIVE COUNT YES
--- NOTE | 2022-06-21 21:04 | PCM.PN.BLA ---
Progress Note Notified today of continued hypotension, recommended turning off the Precedex drip and the autocad technician was also called and so she was started on Gabriel-Synephrine. I did call the to update him on her situation. An H&H was obtained which showed that her hemoglobin dropped to 7 so she will be transfused 1 unit with a second unit on hold and her blood cultures have come back positive with gram-positive cocci still no clear source as she does not have any obvious skin wounds, and her UA and x-ray unremarkable. When I had seen her overnight for agitation from her alcohol withdrawal she was not complaining of any significant abdominal pain and her abdomen was soft and nontender. She was also transitioned from Solu-Medrol to Solu-Cortef to help with her pressures. Otherwise we will continue current therapy.
[2022-06-21] MEDS: Chlorhexidine 15 ML PO (21:50)
[2022-06-21] MEDS: Hydrocortisone Sod Succinate 100 MG/2 ML Vial 50 MG IV (23:15)
[2022-06-22] VITALS (84 sets, daily range): BP systolic 86–164; BP diastolic 40–83; PULSE 91–112; RESP 14–21; TEMP 37.7–38.9; O2SAT 85–96
[2022-06-22 03:58] LABS: Hemoglobin 7.3 g/dL (12.0-15.0); Mean Corp Hgb Conc 30.4 g/dL (32-36); Mean Corpuscular Hgb 25.2 pg (27.0-32.0); Mean Corpuscular Volume 82.8 fL (81-99); Mean Platelet Vol. 10.3 fl (6.2-12.0); POSITIVE COUNT YES; POSITIVE DIFFERENTIAL YES; POSITIVE MORPHOLOGY YES; Platelet Count 59 K/mm3 (150-450); RBC Distribution Width CV 23.9 % (11.6-14.6); RBC Distribution Width SD 68.5 fl (35.1-43.9)
[2022-06-22 03:59] LABS: Differential Indicated MANUAL DIFF
[2022-06-22 04:00] LABS: White Blood Count 31.5 K/mm3 (4.4-11.0)
[2022-06-22 04:10] LABS: International Normalized Ratio 2.5
[2022-06-22 04:26] LABS: Lymphocyte 5 % (19-41); Metamyelocyte 7 % (0-1); Monocyte 2 % (0-10); Myelocyte 1 % (0-0); Neutrophil-Band 5 % (0-5); Neutrophil-Segmented 80 % (47-70); Total Cells Counted 100 (MANUAL DIFF)
[2022-06-22 04:27] LABS: Absolute Neutrophil Count 29.3 X10^3/uL (2.0-7.7); Neutrophil # 29.29 X10^3/uL (2.7-7.7)
[2022-06-22 04:28] LABS: Absolute Lymphocyte Count 1.57 X10^3/uL (0.83-4.51); Lymphocyte # 1.57 X10^3/ul (0.83-4.51)
[2022-06-22 04:29] LABS: Anisocytosis 3+; Microcytosis 1+; Platelet Estimate MOD DEC (ADEQ)
[2022-06-22 04:32] LABS: Macrocytosis 1+; Polychromasia RARE; Target Cells RARE
[2022-06-22 05:02] LABS: Phosphorus 4.1 mg/dL (2.5-4.9)
[2022-06-22 05:17] LABS: AST(SGOT) 280 U/L (15-37); Alanine Aminotransfer ALT/SGPT 48 U/L (13-56); Albumin, Serum 1.3 g/dL (3.2-5.0); Alkaline Phosphatase 77 U/L (45-117); Anion Gap 13 (5-15); BUN 71 mg/dL (7-18); BUN/Creat Ratio 33.6 RATIO (10-20); Bilirubin, Direct 5.93 mg/dL (0.00-0.30); Calcium,Total 5.7 mg/dL (8.5-10.1); Chloride 108 mmol/L (98-107); Creatinine, Serum 2.11 mg/dL (0.55-1.02); EST Glomerular Filtration Rate 26 mL/min (>60); Est Glom Filt Rate - Afr Amer 31 mL/min (>60); Estimated Creatinine Clearance 29.32 ml/min; Globulin 2.9 g/dL (2.2-4.2); Glucose 132 mg/dL (74-106); Magnesium 1.4 mg/dL (1.6-2.6); Potassium 3.1 mmol/L (3.5-5.1); Protein, Total 4.2 g/dL (6.4-8.2); Sodium Level 143 mmol/L (136-145)
--- NOTE | 2022-06-22 05:26 | NURSING ---
notified of critical Calcium. Order given for calcium replacement.
[2022-06-22] MEDS: Magnesium Sulfate 4gm/100mL 4 GM/100 ML IV.SOLN. IV (06:15)
--- NOTE | 2022-06-22 06:17 | EX.PCM.CONCC ---
Assessment & Plan Assessment/Plan (1) Septic shock: PLAN: Plan RECOMMENDATIONS: 1. Continue assist-control mode mechanical ventilation. Wean FiO2 and PEEP to maintain saturations at or above 90%. 2. Continue empiric broad-spectrum antimicrobials. 3. Continue vasopressor support in an attempt to maintain a mean arterial pressure at or above 65 mmHg. 4. Okay to discontinue bicarbonate infusion. 5. Continue stress dose steroids. 6. Obtain follow-up ABG and chest x-ray. 7. Continue PPI therapy as ordered. 8. Continue to monitor H&H and transfuse if hemoglobin drops below 7 g/dL. 9. Lactulose and rifaximin per GI recommendations. IMPRESSIONS: 1. Septic shock with multisystem organ failure The patient presented to the hospital with a number of vague musculoskeletal complaints. She ultimately suffered from a cardiac arrest on the morning of June 21 and was subsequently found to have staph bacteremia. The patient has went on to develop fulminant septic shock with multisystem organ failure requiring multiple vasopressors. Plan to continue Levophed, vasopressin and Gabriel-Synephrine in an attempt to maintain a mean arterial pressure at or above 65 mmHg. The patient will be continued on broad-spectrum antimicrobials. In light of her staph bacteremia, recommend obtaining an echocardiogram. In light of her profound acidosis overnight, the patient was initiated on a bicarbonate infusion, which will be discontinued this morning. She will be maintained on stress dose steroids, pending improvement in her hemodynamic status. 2. Acute combined respiratory failure The patient does have findings on plain film chest imaging concerning for underlying infection. However, she remains on empiric broad-spectrum antimicrobials. Sputum culture is currently pending. Continue assist-control mode mechanical ventilation. Wean FiO2 and PEEP to maintain oxygen saturations at or above 90%. 3. Acute kidney injury Likely prerenal/ischemic ATN in the setting of #1. Continue supportive measures as noted above. Creatinine has improved somewhat this morning. Continue to monitor urine output. No current indication for renal replacement therapy. 4. History of alcoholic hepatitis/chronic alcohol dependency Complicates care, management, recovery and prognosis. Continue supportive care per GI recommendations. TIME: 47 minutes of critical care time, independent of procedures, was spent addressing the patient's septic shock with multisystem organ failure, acute combined respiratory failure, acute kidney injury, alcoholic hepatitis, review of all data and collaboration with the care team. HPI Consult Data Date of Consult: 06/22/22 HPI Narrative Reason for Consultation: Septic shock HPI Narrative: The patient is a 56-year-old female, with a history as outlined below, who initially presented to the emergency department on June 20 via EMS with multiple musculoskeletal pain complaints. The patient has a known history of alcoholic hepatitis and chronic alcohol dependency. The remainder of her history pertinent to her hospitalization was obtained primarily via chart review, as the patient is currently intubated and sedated. On presentation to the emergency department, the patient was noted to be afebrile and hemodynamically stable. Initial laboratory evaluation revealed a white blood cell count of 12,000. The patient was anemic with a hemoglobin of 9.3 g/dL. Platelet count was low at 58,000. Chemistry profile was notable for a creatinine of 1.79. Lactate was elevated at 2.1. Urinalysis was positive for nitrites, leukocyte Estrace and 1+ urine bacteria. Toxicology screen was positive for urine opiates. Head CT was unremarkable. Hip and pelvis x-ray was unremarkable. Right knee x-ray demonstrated degenerative arthrosis. Shoulder x-ray was unremarkable. On the morning of June 21, the patient was noted to be lethargic and hypoglycemic after having been started on a lorazepam taper due to her history of heavy alcohol use. She was subsequently transferred to the medical intensive care unit, where a short time later she went into cardiopulmonary arrest. ACLS was initiated and the patient was intubated. ROSC was ultimately achieved. However, the patient has went on to declare herself as fulminant septic shock with multisystem organ failure. She is currently on a combination of Levophed, vasopressin and Gabriel-Synephrine along with stress dose steroids. Blood cultures are positive for staph aureus. The patient did receive packed red blood cells overnight with a hemoglobin this morning noted to be 7.3 g/dL. White count is elevated at 32,000 this morning. The patient remains thrombocytopenic with a platelet count of 59,000. Creatinine is somewhat improved this morning at 2.1. Prior surface echocardiogram from April 2022 demonstrated normal LV size and function with an ejection fraction of 60% and pulmonary artery systolic pressure of 30 mmHg. [facility] Medical History Acute post-gastric reduction surgery (APGARS) neuropathy Former smoker Hepatitis Hyperlipidemia Hypertension Lactic acidosis Liver failure TGA (transient global amnesia) TIA (transient ischemic attack) Home Medications fluoxetine 10 mg capsule 10 mg PO PRN PRN depression 01/19/21 [History Last Taken 06/20/22] potassium chloride 20 mEq tablet,extended release(part/cryst) (Klor-Con M) 20 meq PO TID supplement 01/23/22 [History Last Taken 06/20/22] gabapentin 300 mg capsule 300 mg PO TID nerve pain 04/02/22 [History Last Taken 06/20/22] magnesium oxide 400 mg (241.3 mg magnesium) tablet 400 mg PO BID supplement 04/02/22 [History Last Taken 06/19/22] clonidine HCl 0.2 mg tablet 0.2 mg PO DAILY HEART 06/20/22 [History Last Taken 06/20/22] diclofenac potassium 50 mg tablet 50 mg PO TID PRN Pain 06/20/22 [History Last Taken 06/20/22] furosemide 40 mg tablet 40 mg PO DAILY FLUID 06/20/22 [History Last Taken 06/20/22] pantoprazole 20 mg tablet,delayed release 20 mg PO DAILY GERD 06/20/22 [History Last Taken 06/20/22] pentoxifylline 400 mg tablet,extended release 400 mg PO DAILY LIVER 06/20/22 [History Last Taken 06/20/22] Allergy/AdvReac Type Severity Reaction Status Date / Time bee venom protein (honey bee) Allergy Swelling Verified 06/20/22 09:58 Family History Father Hypertension Mother Hypertension Surgical History Gastric bypass status for obesity History of total knee arthroplasty Previous back surgery Social History household members: spouse housing: house Smoking Status: Former smoker alcohol intake: current substance use type: does not use ROS Review of Systems ROS Unobtainable: due to endotracheal tube and due to mental status Physical Exam Const Constitutional Narrative: The patient is quite ill and toxic in appearance. She is intubated, sedated and mechanically ventilated. HEENT normocephalic and head/scalp atraumatic Mouth: endotracheal tube in place and OG tube in place Eyes PERRL and EOMs intact bilaterally Neck supple General: trachea midline Chest inspection of chest normal Resp Resp Narrative: Coarse mechanical breath sounds bilaterally. Cardio S1 normal heart sound and S2 normal heart sound Rate: tachycardic GI normal to inspection, nondistended, normoactive bowel sounds Extremity no clubbing, cyanosis or edema Skin no rashes or lesions noted Neuro Sensorium / Orientation: sedated on vent Lab / Micro Data Result Diagrams: 06/22/22 03:35 06/22/22 03:35 Labs: Laboratory Results - last 24 hr 06/21/22 06:31: WBC 24.5 H, RBC 3.47 L, Hgb 8.8 L, Hct 28.5 L, MCV 82.1, MCH 25.4 L, MCHC 30.9 L, RDW Std Deviation 70.4 H, RDW Coeff of Arnold 25.1 H, Plt Count 79 L, MPV 10.6, Immature Gran % (Auto) VOLUNTEER SERVICES COORDINATOR, Neut % (Auto) VOLUNTEER SERVICES COORDINATOR, Lymph % (Auto) VOLUNTEER SERVICES COORDINATOR, Hardin % (Auto) VOLUNTEER SERVICES COORDINATOR, Eos % (Auto) VOLUNTEER SERVICES COORDINATOR, Baso % (Auto) VOLUNTEER SERVICES COORDINATOR, Absolute Neuts (auto) 22.6 H, Absolute Lymphs (auto) 1.96, Total Counted 100, Neutrophils % (Manual) 68, Band Neutrophils % 16 H, Lymphocytes % (Manual) 8 L, Metamyelocytes % 7 H, Promyelocytes % 1 H, Nucleated RBC % 0.4, Diff Path Review May foll, Toxic Granulation 1+, Platelet Estimate MOD DEC, Polychromasia RARE, Microcytosis 1+, Macrocytosis 1+ 06/21/22 06:31: Sodium 137, Potassium 3.7, Chloride 101, Carbon Dioxide 17.0 L, Anion Gap 19 H, BUN 70 H, Creatinine 2.32 H, Estim Creat Clear Calc 26.66, Est GFR (MDRD) Af Amer 28 L, Est GFR (MDRD) Non-Af 23 L, BUN/Creatinine Ratio 30.2 H, Glucose 44 L*, Calcium 8.4 L, Total Bilirubin 7.40 H, AST 88 H, ALT 32, Alkaline Phosphatase 106, Total Protein 6.2 L, Albumin 2.0 L, Globulin 4.2, Albumin/Globulin Ratio 0.5 L 06/21/22 08:38: POC Glucose 93 06/21/22 10:18: POC Glucose 26 L* 06/21/22 10:35: POC Glucose 133 H 06/21/22 11:35: Lactic Acid 11.1 H* 06/21/22 11:50: POC Glucose 88 06/21/22 13:25: WBC 38.5 H*, RBC 3.08 L, Hgb 7.9 L, Hct 26.0 L, MCV 84.4, MCH 25.6 L, MCHC 30.4 L, RDW Std Deviation 73.2 H, RDW Coeff of Arnold 25.0 H, Plt Count 91 L, MPV 10.5, Immature Gran % (Auto) 4.700 H, Neut % (Auto) 85.5 H, Lymph % (Auto) 6.7 L, Hardin % (Auto) 2.9, Eos % (Auto) 0.1, Baso % (Auto) 0.1, Absolute Neuts (auto) 32.9 H, Absolute Lymphs (auto) 2.60, Nucleated RBC % 1.1, Diff Path Review December06/21/22 13:25: Sodium 141, Potassium 4.0, Chloride 105, Carbon Dioxide 22.0, Anion Gap 14, BUN 73 H, Creatinine 2.66 H, Estim Creat Clear Calc 23.26, Est GFR (MDRD) Af Amer 24 L, Est GFR (MDRD) Non-Af 20 L, BUN/Creatinine Ratio 27.4 H, Glucose 134 H, Calcium 7.7 L, Total Bilirubin 7.30 H, AST 218 H, ALT 41, Alkaline Phosphatase 121 H, Total Protein 5.6 L, Albumin 1.8 L, Globulin 3.8, Albumin/Globulin Ratio 0.5 L 06/21/22 14:00: Urine Opiates Screen POSITIVE H, Urine Methadone Screen NEGATIVE, Ur Barbiturates Screen NEGATIVE, Ur Phencyclidine Scrn NEGATIVE, Ur Amphetamines Screen NEGATIVE, MDMA (Ecstasy) Screen NEGATIVE, U Benzodiazepines Scrn NEGATIVE, Urine Cocaine Screen NEGATIVE, U Cannabinoids Screen NEGATIVE, Ur Drug Screen Comment 06/21/22 14:00: Urine Color Yellow, Urine Clarity Cloudy, Urine pH 6.0, Ur Specific [place] 1.015, Urine Protein 30 H, Urine Glucose (UA) Normal, Urine Ketones 5 H, Urine Occult Blood 250 H, Urine Nitrite Positive H, Urine Bilirubin 1 H, Urine Urobilinogen 1 H, Ur Leukocyte Esterase 500 H, Urine RBC 0 SEEN, Urine WBC 10-25 SEEN, Ur Squamous Epith Cells 5-10 SEEN, Urine Bacteria 1+, Urine Mucus 0 SEEN 06/21/22 16:00: Lactic Acid 5.4 H* 06/21/22 20:25: Hgb 7.0 L, Hct 23.9 L 06/21/22 21:10: Blood Type O POSITIVE, Antibody Screen NEGATIVE, Crossmatch See Detail 06/22/22 03:35: WBC 31.5 H*, RBC 2.90 L, Hgb 7.3 L, Hct 24.0 L, MCV 82.8, MCH 25.2 L, MCHC 30.4 L, RDW Std Deviation 68.5 H, RDW Coeff of Arnold 23.9 H, Plt Count 59 L, MPV 10.3, Neut % (Auto) Not Reportable, Absolute Neuts (auto) 29.3 H, Absolute Lymphs (auto) 1.57, Total Counted 100, Neutrophils % (Manual) 80 H, Band Neutrophils % 5, Lymphocytes % (Manual) 5 L, Monocytes % (Manual) 2, Metamyelocytes % 7 H, Myelocytes % 1 H, Diff Path Review May foll, Platelet Estimate MOD DEC, Polychromasia RARE, Anisocytosis 3+, Microcytosis 1+, Macrocytosis 1+, Target Cells RARE 06/22/22 03:35: Sodium 143, Potassium 3.1 L, Chloride 108 H, Carbon Dioxide 22.0, Anion Gap 13, BUN 71 H, Creatinine 2.11 H, Estim Creat Clear Calc 29.32, Est GFR (MDRD) Af Amer 31 L, Est GFR (MDRD) Non-Af 26 L, BUN/Creatinine Ratio 33.6 H, Glucose 132 H, Calcium 5.7 L*, Magnesium 1.4 L, Total Bilirubin 6.90 H, Direct Bilirubin 5.93 H, AST 280 H, ALT 48, Alkaline Phosphatase 77, Total Protein 4.2 L, Albumin 1.3 L, Globulin 2.9 06/22/22 03:35: PT 27.0 H, INR 2.5 06/22/22 03:35: Phosphorus 4.1 Micro: Microbiology 06/21/22 11:35 Blood Culture (Wb) - Other Blood Culture - Preliminary 06/21/22 11:35 Blood Culture (Wb) - Other Blood Culture - Preliminary 06/21/22 14:00 Urine Catheter - Catheter Streptococcus pneumoniae Antigen (M - Final 06/21/22 14:00 Urine Catheter - [place] Legionella Antigen - Final 06/21/22 10:03 Mucosa - Nose - Final ABG Data ABG results: ABG 06/21/22 06/21/22 06/21/22 09:38 10:39 14:45 Specimen Type ART ART ART Sample Site L Radial L Radial L Brach pH 7.03 L* 6.98 L* 7.19 L* Bicarbonate Actual 16.0 L 12.7 L 19.7 L Total CO2 18 14 21 Base Excess -15 L -19 L -9 L O2 Saturation 99 95 91 L O2 % 100 70 70 ABG pCO2 60.3 H 54.2 H 52.2 H ABG pO2 186 H 113 H 76 Lawrence Test Positive Positive Respiration Rate 14 14 O2 Delivery Device Bagging Adult Vent Adult Vent Vent Mode AC AC Tidal Volume 450 450 POC PEEP 5 5 Crit Call To/Read Back Yes Yes Yes Blood Gas Notified Whom DR ELENA samaniego Radiology Impression Chest X-Ray 06/21/22 08:31 IMPRESSION: Prominent interstitial markings associated with ill defined opacities within the lower lungs may be secondary to edema and/or an infectious process. Indeterminate 1.7 cm nodular opacity projecting over the left lower lung, may be secondary to a confluence of shadows however cannot exclude a pulmonary nodule. Cardiomegaly. Electronically Signed: Sydney Floyd MD at 8:46 EST , Chest X-Ray 06/21/22 09:42 IMPRESSION: The endotracheal tube terminating 8 mm above the yoanna, recommend retraction by 2 to 3 cm. Enteric tube terminating caudal to the inferior margin of the image, consider imaging the mid and upper abdomen for further evaluation. Bilateral ill-defined opacities concerning for multifocal pneumonia and/or edema. Electronically Signed: Sydney Floyd MD at 10:22 EST , Charges/Coding Procedures Hospitalists Procedures: [id number] [facility]
--- NOTE | 2022-06-22 06:27 | ECHOCS_ITS ---
Reason For Study: OTHER Procedure This was a 2D Doppler, Color Flow transthoracic echocardiogram. The study was technically difficult. Contrast injection was performed. Exam performed in department. Left Ventricle Normal LV size. Left ventricular systolic function is normal. The estimated ejection fraction is 60 %. No regional wall motion abnormalities noted. Right Ventricle Normal RV size. Normal systolic function. Atria Normal left atrium. Normal right atrium. Mitral Valve Normal mitral valve. Tricuspid Valve Normal tricuspid valve. Mild (1+) tricuspid valve insufficiency. Pulmonary artery systolic pressure is 40 mmHg. Aortic Valve Trisinus/trileaflet aortic valve. Pulmonic Valve Normal pulmonic valve. Great Vessels Normal aortic root. The pulmonary artery is normal size. Normal inferior vena cava. Pericardium/Pleural No pericardial effusion. Medication Diluted definity 2ml given slow IV push to enhance endocardial definition. MMode/2D Measurements & Calculations LVIDd: 4.8 cm IVSd: 1.3 cm Ao root diam: 3.1 cm LVIDs: 3.1 cm LVPWd: 1.1 cm RVDd: 3.9 cm FS: 35.8 % LAV(MOD-sp4): 67.3 ml LVAd ap4: 38.7 cm2 SV(MOD-sp4): 84.9 ml LVLd ap4: 9.0 cm EDV(MOD-sp4): 138.8 ml EDV(sp4-el): 141.5 ml LVAs ap4: 21.8 cm2 LVLs ap4: 7.3 cm ESV(MOD-sp4): 53.9 ml ESV(sp4-el): 55.4 ml EF(MOD-sp4): 61.1 % EF(sp4-el): 60.8 % SV(sp4-el): 86.1 ml LA A4 area: 21.7 cm2 LA dimension(2D): 4.3 cm RA A4 area: 19.1 cm2 Time Measurements MV dec time: 0.25 sec Doppler Measurements & Calculations MV E max gerhard: 80.3 cm/sec Lat Peak E' Gerhard: 15.5 cm/sec Med Peak E' Gerhard: 9.2 cm/sec MV A max gerhard: 79.5 cm/sec E/E' lat: 5.2 E/E' med: 8.8 MV E/A: 1.0 MV V2 max: 89.5 cm/sec MV dec slope: 337.6 cm/sec2 Ao V2 max: 230.5 cm/sec MV max P.2 mmHg Ao max P.3 mmHg MV V2 mean: 69.7 cm/sec Ao V2 mean: 159.7 cm/sec MV mean P.0 mmHg Ao mean P.7 mmHg MV V2 VTI: 25.8 cm Ao V2 VTI: 36.7 cm PA V2 max: 156.5 cm/sec TR max gerhard: 301.9 cm/sec TR max P.5 mmHg ECHO/Echo Complete W/ Contrast Interpretation Summary Normal LV size. Left ventricular systolic function is normal. The estimated ejection fraction is 60 %. Pulmonary artery systolic pressure is 40 mmHg. Structurally normal valves. Contrast injection was performed. Ordering Physician: Samson Mott Referring Physician: Fritz Villatoro Performed By: Kanwal Burton RCS
[2022-06-22] MEDS: Hydrocortisone Sod Succinate 100 MG/2 ML Vial 50 MG IV ×4 (06:30→23:50)
--- NOTE | 2022-06-22 06:34 | RAD_ITS ---
INDICATION: Respiratory Failure EXAMINATION/TECHNIQUE: X-RAY - XR Chest 1 View COMPARISON: June 21, 2022. FINDINGS: LINES/DEVICES: Endotracheal tube 4.3 cm above the yoanna. Enteric tube extends subdiaphragmatic off the inferior study margin. Right PICC tip projects at the superior cavoatrial junction. Right axillary midline or peripheral catheter suggestive. Multiple overlying telemetry leads. Right upper quadrant surgical clips. LUNGS: Slight low lung volumes with mildly increased interstitial thickening and patchy airspace opacification, most prominent in the left lower lung and bilateral lung periphery. Small left effusion likely. No pneumothorax. MEDIASTINUM AND CARDIOVASCULAR STRUCTURES: Prominent cardiac size accentuated by low lung volumes and projection.. BONES AND SOFT TISSUES: Unremarkable. RAD/Chest 1 View (Portable) IMPRESSION: Interval increase in mixed interstitial and patchy airspace disease. Endotracheal tube retraction, now 4.3 cm above the yoanna, just above the clavicles Electronically Signed: Ian Lambert MD at 8:13 EST ,
[2022-06-22 06:56] LABS: Allen Test Positive; Base Excess -1 mmol/L (-2 to +2); Bicarbonate 26.2 mmol/L (22-26); Blood Gas Specimen Type ART; FI02 45; Mode AC; O2 Delivery Device Adult Vent; PEEP 5; PO2 67 mmHG (75-100); RR 14; SITE L Radial; SO2 90 % (95-99); Total Carbon Dioxide 28 mmol/L; Vt 450; pCO2 56.7 mmHg (35-45); pH 7.27 (7.35-7.45)
--- NOTE | 2022-06-22 07:16 | PN.HOSP_ITS ---
Subjective Subjective Patient remains in ICU on the vent. A third pressor had to be added to patient treatment. Patient was transfused 2 unit overnight with significant drop in her hemoglobin. Was started on octreotide drip. Objective Data Objective Data Vital Signs: Vital Signs Temp Pulse Resp BP Pulse Ox O2 Del Method O2 Flow Rate 100 F H 93 16 134/60 H 92 Mechanical Ventilator 4 06/22/22 07:00 06/22/22 07:00 06/22/22 07:00 06/22/22 07:00 06/22/22 07:00 06/22/22 07:00 06/21/22 09:00 FiO2 50 06/22/22 07:00 Oxygen Flow Rate (L/min) 4 Oxygen Delivery Method Mechanical Ventilator Weight: 111.5 kg Body Mass Index (BMI) 37.3 Intake & Output: Intake and Output for Last 24 Hours 06/20/22 06/21/22 06/22/22 23:59 23:59 23:59 Intake Total 1000 / 1100 4986.47 / 5033.31 2906.16 / 2906.16 Output Total 825 / 900 435 / 435 Balance 1000 / 1100 4161.47 / 4133.31 2471.16 / 2471.16 Lab / Micro Data Result Diagrams: 06/22/22 03:35 06/22/22 03:35 Labs: Laboratory Results - last 24 hr 06/21/22 06:31: Absolute Neuts (auto) 22.6 H, Absolute Lymphs (auto) 1.96, Diff Path Review May foll, Toxic Granulation 1+, Platelet Estimate MOD DEC, Polychromasia RARE, Microcytosis 1+, Macrocytosis 1+ 06/21/22 06:31: Sodium 137, Potassium 3.7, Chloride 101, Carbon Dioxide 17.0 L, Anion Gap 19 H, BUN 70 H, Creatinine 2.32 H, Estim Creat Clear Calc 26.66, Est GFR (MDRD) Af Amer 28 L, Est GFR (MDRD) Non-Af 23 L, BUN/Creatinine Ratio 30.2 H , Glucose 44 L*, Calcium 8.4 L, Total Bilirubin 7.40 H, AST 88 H, ALT 32, Alkaline Phosphatase 106, Total Protein 6.2 L, Albumin 2.0 L, Globulin 4.2, Albumin/Globulin Ratio 0.5 L 06/21/22 08:38: POC Glucose 93 06/21/22 10:18: POC Glucose 26 L* 06/21/22 10:35: POC Glucose 133 H 06/21/22 11:35: Lactic Acid 11.1 H* 06/21/22 11:50: POC Glucose 88 06/21/22 13:25: WBC 38.5 H*, RBC 3.08 L, Hgb 7.9 L, Hct 26.0 L, MCV 84.4, MCH 25.6 L, MCHC 30.4 L, RDW Std Deviation 73.2 H, RDW Coeff of Arnold 25.0 H, Plt Count 91 L, MPV 10.5, Immature Gran % (Auto) 4.700 H, Neut % (Auto) 85.5 H, Lymph % (Auto) 6.7 L, Traill % (Auto) 2.9, Eos % (Auto) 0.1, Baso % (Auto) 0.1, Absolute Neuts (auto) 32.9 H, Absolute Lymphs (auto) 2.60, Nucleated RBC % 1.1, Diff Path Review December06/21/22 13:25: Sodium 141, Potassium 4.0, Chloride 105, Carbon Dioxide 22.0, Anion Gap 14, BUN 73 H, Creatinine 2.66 H, Estim Creat Clear Calc 23.26, Est GFR (MDRD) Af Amer 24 L, Est GFR (MDRD) Non-Af 20 L, BUN/Creatinine Ratio 27.4 H, Glucose 134 H, Calcium 7.7 L, Total Bilirubin 7.30 H, AST 218 H, ALT 41, Alkaline Phosphatase 121 H, Total Protein 5.6 L, Albumin 1.8 L, Globulin 3.8, Albumin/Globulin Ratio 0.5 L 06/21/22 14:00: Urine Opiates Screen POSITIVE H, Urine Methadone Screen NEGATIVE, Ur Barbiturates Screen NEGATIVE, Ur Phencyclidine Scrn NEGATIVE, Ur Amphetamines Screen NEGATIVE, MDMA (Ecstasy) Screen NEGATIVE, U Benzodiazepines Scrn NEGATIVE, Urine Cocaine Screen NEGATIVE, U Cannabinoids Screen NEGATIVE, Ur Drug Screen Comment 06/21/22 14:00: Urine Color Yellow, Urine Clarity Cloudy, Urine pH 6.0, Ur Specific Vanderbilt 1.015, Urine Protein 30 H, Urine Glucose (UA) Normal, Urine Ketones 5 H, Urine Occult Blood 250 H, Urine Nitrite Positive H, Urine Bilirubin 1 H, Urine Urobilinogen 1 H, Ur Leukocyte Esterase 500 H, Urine RBC 0 SEEN, Urine WBC 10-25 SEEN, Ur Squamous Epith Cells 5-10 SEEN, Urine Bacteria 1+, Urine Mucus 0 SEEN 06/21/22 16:00: Lactic Acid 5.4 H* 06/21/22 20:25: Hgb 7.0 L, Hct 23.9 L 06/21/22 21:10: Blood Type O POSITIVE, Antibody Screen NEGATIVE, Crossmatch See Detail 06/22/22 03:35: WBC 31.5 H*, RBC 2.90 L, Hgb 7.3 L, Hct 24.0 L, MCV 82.8, MCH 25.2 L, MCHC 30.4 L, RDW Std Deviation 68.5 H, RDW Coeff of Arnold 23.9 H, Plt Count 59 L, MPV 10.3, Neut % (Auto) Not Reportable, Absolute Neuts (auto) 29.3 H , Absolute Lymphs (auto) 1.57, Total Counted 100, Neutrophils % (Manual) 80 H, Band Neutrophils % 5, Lymphocytes % (Manual) 5 L, Monocytes % (Manual) 2, Metamyelocytes % 7 H, Myelocytes % 1 H, Diff Path Review May , Platelet Estimate MOD DEC, Polychromasia RARE, Anisocytosis 3+, Microcytosis 1+, Macrocytosis 1+, Target Cells RARE 06/22/22 03:35: Sodium 143, Potassium 3.1 L, Chloride 108 H, Carbon Dioxide 22.0, Anion Gap 13, BUN 71 H, Creatinine 2.11 H, Estim Creat Clear Calc 29.32, Est GFR (MDRD) Af Amer 31 L, Est GFR (MDRD) Non-Af 26 L, BUN/Creatinine Ratio 33.6 H, Glucose 132 H, Calcium 5.7 L*, Magnesium 1.4 L, Total Bilirubin 6.90 H, Direct Bilirubin 5.93 H, AST 280 H, ALT 48, Alkaline Phosphatase 77, Total Protein 4.2 L, Albumin 1.3 L, Globulin 2.9 06/22/22 03:35: PT 27.0 H, INR 2.5 06/22/22 03:35: Phosphorus 4.1 Micro: Microbiology 06/21/22 11:35 Blood Culture (Wb) - Other Blood Culture - Preliminary Staphylococcus aureus 06/21/22 11:35 Blood Culture (Wb) - Other Blood Culture - Preliminary Staphylococcus aureus 06/21/22 14:00 Urine Catheter - Catheter Streptococcus pneumoniae Antigen (M - Final 06/21/22 14:00 Urine Catheter - [place] Legionella Antigen - Final 06/21/22 10:03 Mucosa - Nose - Final ABG Data ABG results: ABG 06/21/22 06/21/22 06/21/22 09:38 10:39 14:45 Specimen Type ART ART ART Sample Site L Radial L Radial L Brach pH 7.03 L* 6.98 L* 7.19 L* Bicarbonate Actual 16.0 L 12.7 L 19.7 L Total CO2 18 14 21 Base Excess -15 L -19 L -9 L O2 Saturation 99 95 91 L O2 % 100 70 70 ABG pCO2 60.3 H 54.2 H 52.2 H ABG pO2 186 H 113 H 76 Lawrence Test Positive Positive Respiration Rate 14 14 O2 Delivery Device Bagging Adult Vent Adult Vent Vent Mode AC AC Tidal Volume 450 450 POC PEEP 5 5 Crit Call To/Read Back Yes Yes Yes Blood Gas Notified Whom DR ELENA samaniego 06/22/22 06:47 Specimen Type ART Sample Site L Radial pH 7.27 L Bicarbonate Actual 26.2 H Total CO2 28 Base Excess -1 O2 Saturation 90 L O2 % 45 ABG pCO2 56.7 H ABG pO2 67 L Lawrence Test Positive Respiration Rate 14 O2 Delivery Device Adult Vent Vent Mode AC Tidal Volume 450 POC PEEP 5 Crit Call To/Read Back Blood Gas Notified Whom Radiography Diagnostic Testing: Radiology Impression Chest X-Ray 06/21/22 08:31 IMPRESSION: Prominent interstitial markings associated with ill defined opacities within the lower lungs may be secondary to edema and/or an infectious process. Indeterminate 1.7 cm nodular opacity projecting over the left lower lung, may be secondary to a confluence of shadows however cannot exclude a pulmonary nodule. Cardiomegaly. Electronically Signed: Sydney Floyd MD at 8:46 EST , Chest X-Ray 06/21/22 09:42 IMPRESSION: The endotracheal tube terminating 8 mm above the yoanna, recommend retraction by 2 to 3 cm. Enteric tube terminating caudal to the inferior margin of the image, consider imaging the mid and upper abdomen for further evaluation. Bilateral ill-defined opacities concerning for multifocal pneumonia and/or edema. Electronically Signed: Sydney Floyd MD at 10:22 EST , Physical Exam Narrative GENERAL: Patient on the vent HEENT: Atraumatic; bleeding from buccal cavity EYES; icteric, Normal Conjunctiva NECK; supple, normal thyroid, RESPIRATORY: Diminished to auscultation CARDIOVASCULAR: Regular S1 S2, tachycardic GI: soft, normoactive bowel sounds, : No Renal angle tenderness; EXTREMITIES: No edema, no clubbing, MUSCULOSKELETAL: no muscle wasting NEURO: Patient on the vent SKIN: Icteric Assessment & Plan Assessment/Plan (1) Cardiopulmonary arrest with successful resuscitation: (2) Septic shock: PLAN: Plan Patient is a 56-year-old lady admitted with multiple vague symptoms including generalized weakness. Patient was reported to have been drinking excessively. Initial assessment demonstrated abnormal LFTs as well as radiographic findings consistent with congestive heart failure with preserved ejection fraction. Patient was started on Lasix and admitted to a monitored bed. Consult was also placed to gastroenterology on admission. Patient was started on lorazepam taper given her heavy use of alcohol. Patient was found to be hypoglycemic on the morning following her admission. An order was given for D50. Patient was found later to be lethargic tachycardic with bleeding in the mouth. Review of diagnostic work-up was consistent with possible sepsis. Patient started on IV fluid sepsis protocol initiated patient transferred to the intensive care unit. Patient went into cardiopulmonary arrest moments after arriving in the ICU. Patient was successfully resuscitated using ACLS protocol intubated and placed on the vent 1. Septic shock ? Etiology not clear at this point but this is evidenced by patient leukocytosis, lactic acidosis, WBC count with left differential. Treatment initiated per protocol with broad-spectrum antibiotic therapy IV fluid resuscitation after cultures have been sent. Order given for patient to be transferred to the intensive care unit. Plan is to initiate patient pressor if patient fails to respond to initial fluid resuscitation ? 06/22/2022: Patient remains on broad-spectrum antibiotic therapy as well as pressor support with norepinephrine vasopressin and phenylephrine. Patient urinalysis came back abnormal consistent with acute cystitis 2. Acute hypoxic respiratory failure Patient went into cardiopulmonary arrest movement after arriving in the ICU successfully resuscitated using ACLS protocol and left on the vent. Vent orders written consultation placed to insurance claims assistant. Case had been discussed with Dr. Mott prior to patient going into cardiopulmonary arrest ? 06/22/2022 patient currently on the vent with fentanyl and dexmedetomidine for sedation. Patient has been seen in consultation by Dr. Mott with pulmonary/intensive care notes and recommendations reviewed 3. Cardiopulmonary arrest ? Suspected to be secondary to patient metabolic derangement including severe metabolic acidosis. Patient was successfully resuscitated using ACLS protocol 4. Combined respiratory and metabolic acidosis Initial ABG demonstrated pH of 6.98, base excess of -19 PCO2 of 54.2. CO2 on patient BMP was 14. Plan is to treat patient underlying etiology including septic shock and acute kidney injury. We will repeat ABG and if patient remains acidotic patient will be started on bicarb drip ? 06/22/2022 patient was started on bicarb drip; 5. Acute kidney injury ? Suspected to be secondary to ATN from patient septic shock patient is on IV fluids. Patient had been given diuretics for suspected congestive heart failure diuretics subsequently discontinued 6. Acute transaminitis ? With AST being greater than ALT with ratio greater than 221. This was thought to be secondary to patient chronic alcohol use ? 06/22/2022. Patient acute transaminitis continued to worsen 7. Anemia ? Secondary to acute blood loss anemia suspected from upper GI bleed. Patient did receive 2 unit PRBC blood transfusion started on octreotide drip. Patient is on Protonix GI on case. Repeat H&H ordered for follow-up 8. Hypokalemia ? Corrected per protocol repeat labs ordered for a.m. 9. Hypocalcemia ? Patient low albumin level contributing additional calcium levels given repeat labs ordered for a.m. 10. Chronic alcohol dependence ? Patient was started on Ativan for suspected alcohol withdrawal at this has since been discontinued patient is currently on the vent 11.. Thrombocytopenia ? Secondary to chronic alcohol use; Monitoring with daily CBC ? Further drop in patient platelet count 12.. Hepatosteatosis ? Secondary to chronic alcohol use patient was seen in consultation by Dr. Fri end with GI he is noted recommendations reviewed. Patient was started on, lactulose rifaximin and methylprednisolone by Dr. Ocampo 13. Hypomagnesemia ? Corrected per protocol 14. DVT prophylaxis ? Bilateral SCDsrotocol Total critical care time spent evaluating patient review of diagnostic data subsequent management changes and discussion with other providers involved in patient's care 55 minutes Charges/Coding Procedures Hospitalists Procedures: 47711 Critial Care 1st Hr
[2022-06-22] MEDS: Chlorhexidine 15 ML PO ×2 (08:00→21:41)
[2022-06-22] MEDS: Lactulose 20 GM/30 ML UDC GT ×2 (10:17→21:15)
[2022-06-22] MEDS: Pentoxifylline 400 MG Tablet PO (10:18)
[2022-06-22] MEDS: rifAXIMin 550 MG Tablet GT ×2 (10:18→21:15)
[2022-06-22] MEDS: 0.9% Saline Lock 10 ML Syringe IV ×2 (10:19→14:15)
[2022-06-22] MEDS: Potassium Chloride Oral Soln 20 MEQ/15 ML UDC GT ×3 (10:19→16:09)
[2022-06-22] MEDS: Acetaminophen 650 MG/20 ML UDC GT ×2 (10:55→16:08)
[2022-06-22 13:45] LABS: Allen Test Positive; Base Excess 1 mmol/L (-2 to +2); Bicarbonate 26.7 mmol/L (22-26); Blood Gas Specimen Type ART; FI02 50; Mode AC; O2 Delivery Device Adult Vent; PEEP 5; PO2 51 mmHG (75-100); RR 18; SITE L Radial; SO2 84 % (95-99); Total Carbon Dioxide 28 mmol/L; Vt 450; pCO2 47.1 mmHg (35-45); pH 7.36 (7.35-7.45)
--- NOTE | 2022-06-22 17:30 | PCM.PROGNOTE ---
Subjective Subjective Patient is still intubated and nonresponsive. Patient is still not hemodynamically stable and on 2 IV pressor therapies. She is still have some blood around the mouth. She was given 2 units of packed red blood cells. Objective Data Objective Data Vital Signs: Vital Signs Temp Pulse Resp BP Pulse Ox O2 Del Method O2 Flow Rate 102.1 F H 111 H 18 117/57 L 90 Mechanical Ventilator 4 06/22/22 16:30 06/22/22 16:30 06/22/22 16:30 06/22/22 17:00 06/22/22 16:30 06/22/22 16:30 06/21/22 09:00 FiO2 80 06/22/22 16:30 Oxygen Flow Rate (L/min) 4 Oxygen Delivery Method Mechanical Ventilator Weight: 245 lb 13.047 oz Body Mass Index (BMI) 37.3 Intake & Output: Intake and Output for Last 24 Hours 06/20/22 06/21/22 06/22/22 23:59 23:59 23:59 Intake Total 1000 / 1100 4986.47 / 5033.31 5994.23 / 5994.23 Output Total 825 / 900 890 / 890 Balance 1000 / 1100 4161.47 / 4133.31 5104.23 / 5104.23 Lab / Micro Data Result Diagrams: 06/22/22 03:35 06/22/22 03:35 Labs: Laboratory Results - last 24 hr 06/21/22 11:35: Lactic Acid 11.1 H* 06/21/22 14:00: Urine Opiates Screen POSITIVE H, Urine Methadone Screen NEGATIVE, Ur Barbiturates Screen NEGATIVE, Ur Phencyclidine Scrn NEGATIVE, Ur Amphetamines Screen NEGATIVE, MDMA (Ecstasy) Screen NEGATIVE, U Benzodiazepines Scrn NEGATIVE, Urine Cocaine Screen NEGATIVE, U Cannabinoids Screen NEGATIVE 06/21/22 20:25: Hgb 7.0 L, Hct 23.9 L 06/21/22 21:10: Blood Type O POSITIVE, Antibody Screen NEGATIVE, Crossmatch See Detail 06/22/22 03:35: WBC 31.5 H*, RBC 2.90 L, Hgb 7.3 L, Hct 24.0 L, MCV 82.8, MCH 25.2 L, MCHC 30.4 L, RDW Std Deviation 68.5 H, RDW Coeff of Arnold 23.9 H, Plt Count 59 L, MPV 10.3, Neut % (Auto) Not Reportable, Absolute Neuts (auto) 29.3 H, Absolute Lymphs (auto) 1.57, Total Counted 100, Neutrophils % (Manual) 80 H, Band Neutrophils % 5, Lymphocytes % (Manual) 5 L, Monocytes % (Manual) 2, Metamyelocytes % 7 H, Myelocytes % 1 H, Diff Path Review May foll, Platelet Estimate MOD DEC, Polychromasia RARE, Anisocytosis 3+, Microcytosis 1+, Macrocytosis 1+, Target Cells RARE 06/22/22 03:35: Sodium 143, Potassium 3.1 L, Chloride 108 H, Carbon Dioxide 22.0, Anion Gap 13, BUN 71 H, Creatinine 2.11 H, Estim Creat Clear Calc 29.32, Est GFR (MDRD) Af Amer 31 L, Est GFR (MDRD) Non-Af 26 L, BUN/Creatinine Ratio 33.6 H, Glucose 132 H, Calcium 5.7 L*, Magnesium 1.4 L, Total Bilirubin 6.90 H, Direct Bilirubin 5.93 H, AST 280 H, ALT 48, Alkaline Phosphatase 77, Total Protein 4.2 L, Albumin 1.3 L, Globulin 2.9 06/22/22 03:35: PT 27.0 H, INR 2.5 06/22/22 03:35: Phosphorus 4.1 Micro: Microbiology 06/21/22 15:43 Nasal Secretion SARS-CoV-2 Antigen (Rapid) - Final 06/21/22 09:39 Sputum, Induced/Lukens Gram Stain - Final 06/21/22 09:39 Sputum, Induced/Lukens Respiratory Culture - Preliminary Staphylococcus aureus 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 06/21/22 14:00 Urine Catheter - [place] Urine Culture - Preliminary 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 Gram Positive Cocci 06/21/22 11:35 Blood Culture (Wb) - Other Blood Culture - Preliminary Staphylococcus aureus 06/21/22 11:35 Blood Culture (Wb) - Other Blood Culture - Preliminary Staphylococcus aureus 06/21/22 14:00 Urine Catheter - Catheter Streptococcus pneumoniae Antigen (M - Final 06/21/22 14:00 Urine Catheter - [place] Legionella Antigen - Final 06/21/22 10:03 Mucosa - Nose - Final ABG Data ABG results: ABG 06/22/22 06/22/22 06:47 13:39 Specimen Type ART ART Sample Site L Radial L Radial pH 7.27 L 7.36 Bicarbonate Actual 26.2 H 26.7 H Total CO2 28 28 Base Excess -1 1 O2 Saturation 90 L 84 L O2 % 45 50 ABG pCO2 56.7 H 47.1 H ABG pO2 67 L 51 L Lawrence Test Positive Positive Respiration Rate 14 18 O2 Delivery Device Adult Vent Adult Vent Vent Mode AC AC Tidal Volume 450 450 POC PEEP 5 5 Radiography Diagnostic Testing: Radiology Impression Chest X-Ray 06/22/22 06:34 IMPRESSION: Interval increase in mixed interstitial and patchy airspace disease. Endotracheal tube retraction, now 4.3 cm above the yoanna, just above the clavicles Electronically Signed: Ian Lambert MD at 8:13 EST , Physical Exam Narrative GENERAL: Patient on the vent HEENT: Atraumatic; bleeding from buccal cavity EYES; icteric, Normal Conjunctiva NECK; supple, normal thyroid, RESPIRATORY: Diminished to auscultation CARDIOVASCULAR: Regular S1 S2, tachycardic GI: soft, normoactive bowel sounds, : No Renal angle tenderness; EXTREMITIES: No edema, no clubbing, MUSCULOSKELETAL: no muscle wasting NEURO: Patient on the vent SKIN: Icteric Assessment & Plan Assessment/Plan (1) Septic shock: PLAN: She is on broad-spectrum antibiotic therapy.? Guarded prognosis. Managed by primary team and community development officer. (2) Hepatomegaly: PLAN: Hepatomegaly with diffuse steatosis consistent with alcoholic induced fatty liver disease. I recommend to stop Solu-Medrol therapy for her alcoholic hepatitis even though her Madrey score is 70 for alcoholic hepatitis.? I? recommend to continue Pentoxyphilline and N-acetylcysteine therapy for her.? I am also recommending Mucomyst drip for non acetaminophen induced liver failure to hopefully replete her glutathione stores Recheck LFTs and monitor INR to recalculate Madrey score. She should also continue prophylactic lactulose and Xifaxan therapy. (3) Thrombocytopenia: PLAN: Thrombocytopenia possibly secondary to acute alcoholic toxicity.? Continue to monitor platelets.? I will get a CT scan to make sure there is no signs of portal hypertension leading to an enlarged spleen. (4) GI bleed: PLAN: She will get an upper endoscopy tomorrow to see if she is bleeding from her upper GI tract. She does not have cirrhosis and she is a gastric bypass patient. So this less likely she may be experiencing any signs of portal hypertension that would lead to an upper GI bleed from portal gastropathy from her stomach. On her previous endoscopy she did not have any varices. If she does have an upper GI bleed it would likely be from erosive esophagitis, Carlee-Harmon tear or angiodysplastic lesion in the setting of thrombocytopenia secondary to alcohol toxicity and coagulopathy from sepsis. (5) Coagulopathy: PLAN: Coagulopathy likely secondary to sepsis possibly associated with DIC. Charges/Coding Visit Charges Inpatient E&M: 02463 Subs Hosp L3
[2022-06-22 18:27] LABS: Hematocrit 28.6 % (37-47); Hemoglobin 9.1 g/dL (12.0-15.0); POSITIVE COUNT YES
[2022-06-22 18:50] LABS: ALB/GLOB Ratio 0.4 RATIO (0.9-2.4); AST(SGOT) 304 U/L (15-37); Alanine Aminotransfer ALT/SGPT 61 U/L (13-56); Albumin, Serum 1.5 g/dL (3.2-5.0); Alkaline Phosphatase 85 U/L (45-117); Anion Gap 9 (5-15); BUN 89 mg/dL (7-18); BUN/Creat Ratio 38.9 RATIO (10-20); Calcium,Total 7.1 mg/dL (8.5-10.1); Chloride 105 mmol/L (98-107); Creatinine, Serum 2.29 mg/dL (0.55-1.02); EST Glomerular Filtration Rate 23 mL/min (>60); Est Glom Filt Rate - Afr Amer 28 mL/min (>60); Estimated Creatinine Clearance 27.01 ml/min; Globulin 3.6 g/dL (2.2-4.2); Glucose 150 mg/dL (74-106); Potassium 4.1 mmol/L (3.5-5.1); Protein, Total 5.1 g/dL (6.4-8.2); Sodium Level 141 mmol/L (136-145)
[2022-06-22] MEDS: Albuterol 2.5 MG/3 ML VIAL.NEB. INHALATION (20:15)
[2022-06-22] MEDS: Menthol/Lanolin/Calamine/Znox 113 GM Tube 1 APPLIC TOPICAL (21:16)
[2022-06-23] VITALS (50 sets, daily range): BP systolic 85–137; BP diastolic 45–65; PULSE 94–128; RESP 12–28; TEMP 37.1–38.6; O2SAT 90–98; BMI 40.3
[2022-06-23 03:56] LABS: Hematocrit 27.1 % (37-47); Hemoglobin 8.7 g/dL (12.0-15.0); Mean Corp Hgb Conc 32.1 g/dL (32-36); Mean Corpuscular Hgb 25.3 pg (27.0-32.0); Mean Corpuscular Volume 78.8 fL (81-99); POSITIVE COUNT YES; POSITIVE MORPHOLOGY YES; Platelet Count 41 K/mm3 (150-450); RBC Distribution Width SD 60.3 fl (35.1-43.9); Red Blood Count 3.44 M/mm3 (4.2-5.4); White Blood Count 19.5 K/mm3 (4.4-11.0)
[2022-06-23 04:06] LABS: Differential Indicated MANUAL DIFF
[2022-06-23 04:15] LABS: Microcytosis 1+
[2022-06-23 04:16] LABS: Absolute Lymphocyte Count 2.34 X10^3/uL (0.83-4.51); Absolute Neutrophil Count 15.2 X10^3/uL (2.0-7.7); Anisocytosis 2+; Platelet Estimate MKD DEC (ADEQ); Total Cells Counted 101 (MANUAL DIFF)
[2022-06-23 04:17] LABS: Lymphocyte 12 % (19-41); Metamyelocyte 1 % (0-1); Monocyte 5 % (0-10); Myelocyte 2 % (0-0); Neutrophil-Band 13 % (0-5); Neutrophil-Segmented 65 % (47-70); Nucleated Red Bld Cells,Manual 1 % (0-5); Promyelocyte 2 % (0-0)
[2022-06-23 04:18] LABS: AST(SGOT) 281 U/L (15-37); Alanine Aminotransfer ALT/SGPT 69 U/L (13-56); Albumin, Serum 1.4 g/dL (3.2-5.0); Alkaline Phosphatase 83 U/L (45-117); Anion Gap 10 (5-15); BUN 94 mg/dL (7-18); BUN/Creat Ratio 43.3 RATIO (10-20); Bilirubin, Direct 7.49 mg/dL (0.00-0.30); Calcium,Total 6.7 mg/dL (8.5-10.1); Chloride 105 mmol/L (98-107); Creatinine, Serum 2.17 mg/dL (0.55-1.02); EST Glomerular Filtration Rate 25 mL/min (>60); Est Glom Filt Rate - Afr Amer 30 mL/min (>60); Estimated Creatinine Clearance 28.51 ml/min; Globulin 3.5 g/dL (2.2-4.2); Glucose 162 mg/dL (74-106); Potassium 3.8 mmol/L (3.5-5.1); Protein, Total 4.9 g/dL (6.4-8.2); Sodium Level 141 mmol/L (136-145)
[2022-06-23] MEDS: Hydrocortisone Sod Succinate 100 MG/2 ML Vial 50 MG IV ×3 (04:56→16:29)
--- NOTE | 2022-06-23 06:38 | PCM.PN.INT ---
Assessment & Plan Assessment/Plan (1) Septic shock: PLAN: Plan RECOMMENDATIONS: 1. Continue assist-control mode mechanical ventilation. Wean FiO2 and PEEP to maintain saturations at or above 90%. 2. Continue empiric broad-spectrum antimicrobials. 3. Continue vasopressor support in an attempt to maintain a mean arterial pressure at or above 65 mmHg. 4. Challenge with diuretics 5. Continue stress dose steroids. 6. Advance endotracheal tube and repeat chest x-ray 7. Continue PPI therapy as ordered. 8. Continue to monitor H&H and transfuse if hemoglobin drops below 7 g/dL. 9. Lactulose and rifaximin per GI recommendations. 10. EGD per GI IMPRESSIONS: 1. Septic shock with multisystem organ failure The patient presented to the hospital with a number of vague musculoskeletal complaints. She ultimately suffered from a cardiac arrest on the morning of June 21 and was subsequently found to have staph bacteremia. The patient has went on to develop fulminant septic shock with multisystem organ failure requiring multiple vasopressors. Plan to continue Levophed, vasopressin and Gabriel-Synephrine in an attempt to maintain a mean arterial pressure at or above 65 mmHg, but this significantly improved overnight. The patient will be continued on broad-spectrum antimicrobials. Echocardiogram is currently pending. She will be maintained on stress dose steroids, pending improvement in her hemodynamic status. Possibly wean stress dose steroids once off of pressors. 2. Acute combined respiratory failure The patient does have findings on plain film chest imaging concerning for underlying infection. However, she remains on empiric broad-spectrum antimicrobials. Sputum culture is currently pending. Continue assist-control mode mechanical ventilation. Wean FiO2 and PEEP to maintain oxygen saturations at or above 90%. Patient significantly volume positive. We will challenge with diuretics given improvement in blood pressure. Endotracheal tube does appear to be somewhat high. We will move endotracheal tube in and obtain a chest x-ray to for confirmation of appropriate positioning. 3. Acute kidney injury Likely prerenal/ischemic ATN in the setting of #1. Continue supportive measures as noted above. Creatinine has stabilized. Continue to monitor urine output. No current indication for renal replacement therapy. 4. History of alcoholic hepatitis/chronic alcohol dependency Complicates care, management, recovery and prognosis. Continue supportive care per GI recommendations. TIME: 40 minutes of critical care time, independent of procedures, was spent addressing the patient's septic shock with multisystem organ failure, acute combined respiratory failure, acute kidney injury, alcoholic hepatitis, review of all data and collaboration with the care team. Subjective Subjective Patient with significant improvement in pressor requirements overnight. Patient is having some voluntary head and lower extremity movements. Not following commands. Does fight with pupillary exam. Did receive 2 units of packed red blood cells overnight. Patient reportedly is to have an EGD today. Exact procedure time has not been determined. Objective Data Objective Data Vital Signs: Vital Signs Temp Pulse Resp BP Pulse Ox O2 Del Method O2 Flow Rate 37.7 C H 103 H 25 H 110/57 L 93 Mechanical Ventilator 4 06/23/22 06:30 06/23/22 06:30 06/23/22 06:30 06/23/22 06:30 06/23/22 06:30 06/23/22 06:30 06/21/22 09:00 FiO2 70 06/23/22 06:30 Oxygen Flow Rate (L/min) 4 Oxygen Delivery Method Mechanical Ventilator Weight: 120.7 kg Body Mass Index (BMI) 40.3 Intake & Output: Intake and Output for Last 24 Hours 06/21/22 06/22/22 06/23/22 23:59 23:59 23:59 Intake Total 4986.47 / 5033.31 6533.20 / 6542.42 319.68 / 319.68 Output Total 825 / 900 1105 / 1155 270 / 270 Balance 4161.47 / 4133.31 5428.20 / 5387.42 49.68 / 49.68 Lab / Micro Data Attestation: I reviewed the patient's lab results. Result Diagrams: 06/23/22 03:40 06/23/22 03:40 Labs: Laboratory Results - last 24 hr 06/21/22 21:10: Crossmatch See Detail 06/22/22 18:15: Hgb 9.1 L, Hct 28.6 L 06/22/22 18:15: Sodium 141, Potassium 4.1, Chloride 105, Carbon Dioxide 27.0, Anion Gap 9, BUN 89 H, Creatinine 2.29 H, Estim Creat Clear Calc 27.01, Est GFR (MDRD) Af Amer 28 L, Est GFR (MDRD) Non-Af 23 L, BUN/Creatinine Ratio 38.9 H, Glucose 150 H, Calcium 7.1 L, Total Bilirubin 8.90 H, AST 304 H, ALT 61 H, Alkaline Phosphatase 85, Total Protein 5.1 L, Albumin 1.5 L, Globulin 3.6, Albumin/Globulin Ratio 0.4 L 06/23/22 03:40: WBC 19.5 H, RBC 3.44 L, Hgb 8.7 L, Hct 27.1 L, MCV 78.8 L, MCH 25.3 L, MCHC 32.1 D, RDW Std Deviation 60.3 H, RDW Coeff of Arnold 23.0 H, Plt Count 41 L*, Neut % (Auto) Not Reportable, Absolute Neuts (auto) 15.2 H, Absolute Lymphs (auto) 2.34, Total Counted 101, Neutrophils % (Manual) 65, Band Neutrophils % 13 H, Lymphocytes % (Manual) 12 L, Monocytes % (Manual) 5, Metamyelocytes % 1, Myelocytes % 2 H, Promyelocytes % 2 H, Nucleated RBCs/100 WBC 1, Diff Path Review December, Platelet Estimate MKD DEC, Anisocytosis 2+, Microcytosis 1+ 06/23/22 03:40: Sodium 141, Potassium 3.8, Chloride 105, Carbon Dioxide 26.0, Anion Gap 10, BUN 94 H, Creatinine 2.17 H, Estim Creat Clear Calc 28.51, Est GFR (MDRD) Af Amer 30 L, Est GFR (MDRD) Non-Af 25 L, BUN/Creatinine Ratio 43.3 H, Glucose 162 H, Calcium 6.7 L, Total Bilirubin 8.70 H, Direct Bilirubin 7.49 H, AST 281 H, ALT 69 H, Alkaline Phosphatase 83, Total Protein 4.9 L, Albumin 1.4 L, Globulin 3.5 Micro: Microbiology 06/21/22 15:43 Nasal Secretion SARS-CoV-2 Antigen (Rapid) - Final 06/21/22 09:39 Sputum, Induced/Lukens Gram Stain - Final 06/21/22 09:39 Sputum, Induced/Lukens Respiratory Culture - Preliminary Staphylococcus aureus GNR lactose contract consultant 06/21/22 14:00 Urine Catheter - De La Fuente Urine Culture - Preliminary GNR lactose contract consultant Gram Positive Cocci 06/21/22 11:35 Blood Culture (Wb) - Other Blood Culture - Preliminary Staphylococcus aureus 06/21/22 11:35 Blood Culture (Wb) - Other Blood Culture - Preliminary Staphylococcus aureus 06/21/22 14:00 Urine Catheter - Catheter Streptococcus pneumoniae Antigen (M - Final 06/21/22 14:00 Urine Catheter - De La Fuente Legionella Antigen - Final 06/21/22 10:03 Mucosa - Nose - Final ABG Data ABG results: ABG 06/22/22 06/22/22 06:47 13:39 Specimen Type ART ART Sample Site L Radial L Radial pH 7.27 L 7.36 Bicarbonate Actual 26.2 H 26.7 H Total CO2 28 28 Base Excess -1 1 O2 Saturation 90 L 84 L O2 % 45 50 ABG pCO2 56.7 H 47.1 H ABG pO2 67 L 51 L Lawrence Test Positive Positive Respiration Rate 14 18 O2 Delivery Device Adult Vent Adult Vent Vent Mode AC AC Tidal Volume 450 450 POC PEEP 5 5 Radiography Diagnostic Testing: Radiology Impression Chest X-Ray 06/22/22 06:34 IMPRESSION: Interval increase in mixed interstitial and patchy airspace disease. Endotracheal tube retraction, now 4.3 cm above the yoanna, just above the clavicles Electronically Signed: Ian Lambert MD at 8:13 EST , Physical Exam Const Constitutional Narrative: The patient is quite ill and toxic in appearance. She is intubated, sedated and mechanically ventilated. Anasarca noted HEENT normocephalic and head/scalp atraumatic HEENT Narrative: Some spontaneous movement of the head [id number] Eyes PERRL and EOMs intact bilaterally Neck supple General: trachea midline Chest inspection of chest normal Resp Resp Narrative: Coarse mechanical breath sounds bilaterally. Breathing over the vent Auscultation: rhonchi and diminished lung sounds; Negative for rales or wheezes Cardio S1 normal heart sound, S2 normal heart sound and no murmurs Rate: tachycardic GI Inspection: anasarca present and abdominal distention Auscultation: normoactive bowel sounds Extremity General Extremity: edema Skin no rashes or lesions noted Neuro Sensorium / Orientation: sedated on vent Psych Activity / Motor Behavior: restless Charges/Coding Procedures Hospitalists Procedures: 22385 Critial Care 1st Hr
--- NOTE | 2022-06-23 06:39 | NURSING ---
Addendum entered by Pan Rosario 06/23/22 06:58: [id number] attempted to call Kit again, no answer. Original Note: Attempted to contact pt's Kit to obtain verbal consent for EGD, no answer, left voicemail with unit's callback number.
[2022-06-23] MEDS: Ipratropium/Albuterol Sulfate 3 ML AMPUL.NEB INHALATION ×5 (06:46→22:17)
[2022-06-23] MEDS: Furosemide 40 MG/4 ML Vial IV (06:47)
--- NOTE | 2022-06-23 07:25 | PN.HOSP_ITS ---
Subjective Subjective Follow-up on septic shock/acute cardiopulmonary arrest/acute GI bleed: Patient was seen and examined. She is going for EGD morning. She is off vasopressor, on Levophed only; being weaned down. She is having low-grade fevers. Objective Data Objective Data Vital Signs: Vital Signs Temp Pulse Resp BP Pulse Ox O2 Del Method O2 Flow Rate 100 F H 103 H 25 H 110/57 L 93 Mechanical Ventilator 4 06/23/22 06:30 06/23/22 06:30 06/23/22 06:30 06/23/22 06:30 06/23/22 06:30 06/23/22 06:30 06/21/22 09:00 FiO2 70 06/23/22 06:30 Oxygen Flow Rate (L/min) 4 Oxygen Delivery Method Mechanical Ventilator Weight: 120.7 kg Body Mass Index (BMI) 40.3 Intake & Output: Intake and Output for Last 24 Hours 06/21/22 06/22/22 06/23/22 23:59 23:59 23:59 Intake Total 4986.47 / 5033.31 6533.20 / 6542.42 352.78 / 352.78 Output Total 825 / 900 1105 / 1155 270 / 270 Balance 4161.47 / 4133.31 5428.20 / 5387.42 82.78 / 82.78 Lab / Micro Data Result Diagrams: 06/23/22 03:40 06/23/22 03:40 Labs: Laboratory Results - last 24 hr 06/21/22 21:10: Crossmatch See Detail 06/22/22 18:15: Hgb 9.1 L, Hct 28.6 L 06/22/22 18:15: Sodium 141, Potassium 4.1, Chloride 105, Carbon Dioxide 27.0, Anion Gap 9, BUN 89 H, Creatinine 2.29 H, Estim Creat Clear Calc 27.01, Est GFR (MDRD) Af Amer 28 L, Est GFR (MDRD) Non-Af 23 L, BUN/Creatinine Ratio 38.9 H, Glucose 150 H, Calcium 7.1 L, Total Bilirubin 8.90 H, AST 304 H, ALT 61 H, Alkaline Phosphatase 85, Total Protein 5.1 L, Albumin 1.5 L, Globulin 3.6, Albumin/Globulin Ratio 0.4 L 06/23/22 03:40: WBC 19.5 H, RBC 3.44 L, Hgb 8.7 L, Hct 27.1 L, MCV 78.8 L, MCH 25.3 L, MCHC 32.1 D, RDW Std Deviation 60.3 H, RDW Coeff of Arnold 23.0 H, Plt Count 41 L*, Neut % (Auto) Not Reportable, Absolute Neuts (auto) 15.2 H, Absolute Lymphs (auto) 2.34, Total Counted 101, Neutrophils % (Manual) 65, Band Neutrophils % 13 H, Lymphocytes % (Manual) 12 L, Monocytes % (Manual) 5, Metamyelocytes % 1, Myelocytes % 2 H, Promyelocytes % 2 H, Nucleated RBCs/100 WBC 1, Diff Path Review December, Platelet Estimate MKD DEC, Anisocytosis 2+, Microcytosis 1+ 06/23/22 03:40: Sodium 141, Potassium 3.8, Chloride 105, Carbon Dioxide 26.0, Anion Gap 10, BUN 94 H, Creatinine 2.17 H, Estim Creat Clear Calc 28.51, Est GFR (MDRD) Af Amer 30 L, Est GFR (MDRD) Non-Af 25 L, BUN/Creatinine Ratio 43.3 H, Glucose 162 H, Calcium 6.7 L, Total Bilirubin 8.70 H, Direct Bilirubin 7.49 H, AST 281 H, ALT 69 H, Alkaline Phosphatase 83, Total Protein 4.9 L, Albumin 1.4 L , Globulin 3.5 Micro: Microbiology 06/21/22 15:43 Nasal Secretion SARS-CoV-2 Antigen (Rapid) - Final 06/21/22 09:39 Sputum, Induced/Lukens Gram Stain - Final 06/21/22 09:39 Sputum, Induced/Lukens Respiratory Culture - Preliminary Staphylococcus aureus GNR lactose lay ups assembler 06/21/22 14:00 Urine Catheter - De La Fuente Urine Culture - Preliminary GNR lactose lay ups assembler Gram Positive Cocci 06/21/22 11:35 Blood Culture (Wb) - Other Blood Culture - Preliminary Staphylococcus aureus 06/21/22 11:35 Blood Culture (Wb) - Other Blood Culture - Preliminary Staphylococcus aureus 06/21/22 14:00 Urine Catheter - Catheter Streptococcus pneumoniae Antigen (M - Final 06/21/22 14:00 Urine Catheter - De [place] Fuente Legionella Antigen - Final 06/21/22 10:03 Mucosa - Nose - Final ABG Data ABG results: ABG 06/22/22 13:39 Specimen Type ART Sample Site L Radial pH 7.36 Bicarbonate Actual 26.7 H Total CO2 28 Base Excess 1 O2 Saturation 84 L O2 % 50 ABG pCO2 47.1 H ABG pO2 51 L Lawrence Test Positive Respiration Rate 18 O2 Delivery Device Adult Vent Vent Mode AC Tidal Volume 450 POC PEEP 5 Radiography Diagnostic Testing: Radiology Impression Chest X-Ray 06/22/22 06:34 IMPRESSION: Interval increase in mixed interstitial and patchy airspace disease. Endotracheal tube retraction, now 4.3 cm above the yoanna, just above the clavicles Electronically Signed: Ian Lambert MD at 8:13 EST , Physical Exam Narrative Physical exam: General: Sedated, intubated, on mechanical ventilator HEENT: Atraumatic, ETT and OG tube in situ Oral: Moist Mucosa Neck: Supple Lungs: Diminished to auscultation Cardiovascular: HS I+II, regular, no murmurs Abdomen: Bowel Sounds Present, Soft, Non Tender Extremities: No edema Skin: No rashes, No breakdown Neurological: Grossly intact Psych/Mental Status: Appropriate Assessment & Plan Assessment/Plan (1) Cardiopulmonary arrest with successful resuscitation: (2) Septic shock: PLAN: Plan 1. Septic shock likely secondary to probable Acute UTI, somehow improving Patient was on multi pressors yesterday -currently only on Levophed Urine cultures growing gram-negative lactose lay ups assembler/gram-positive cocci Continue on cefepime, vancomycin and Hydrocortisone IV Q6h 2. CHEN, likely prerenal from #1, creatinine went from 2.66 to 2.17 today We will trend labs in am 3. Acute GI bleed, likely upper, GI following, patient going for EGD today Continue on octreotide, IV PPI BID 4. Anemia, acute blood loss, secondary to #3, s/p 2 units pRBCs Hb is 8.7, will continue to monitor 5. Acute hypoxic respiratory failure secondary to acute cardiopulmonary arrest Remains on mechanical ventilator; gas line repairer following 5. Acute cardiopulmonary arrest, likely multifactorial, will continue to monitor. 6. Acute combined respiratory metabolic acidosis, improved Patient was on bicarb drip yesterday, been off since 7. Acute transaminitis, remains elevated, GI consulted Will trend in am 8. Hypokalemia, resolved 9. Thrombocytopenia, acute on chronic, likely secondary to alcohol use We will trend 10. Hepatic steatosis secondary to chronic alcohol use, continue lactulose, rifaximin GI following 11. DVT PPx- SCDS Charges/Coding Visit Charges Inpatient E&M: 95798 Subs Hosp L3
[2022-06-23 08:12] LABS: International Normalized Ratio 1.6; Prothrombin Time (Protime)PT. 18.4 SECONDS (11.7-14.9)
[2022-06-23] MEDS: Potassium Chloride Oral Soln 20 MEQ/15 ML UDC GT ×3 (09:36→16:29)
[2022-06-23] MEDS: Lactulose 20 GM/30 ML UDC GT ×2 (09:36→21:54)
[2022-06-23] MEDS: rifAXIMin 550 MG Tablet GT ×2 (09:37→21:46)
[2022-06-23] MEDS: Chlorhexidine 15 ML PO ×2 (09:41→21:50)
--- NOTE | 2022-06-23 10:05 | RAD_ITS ---
STUDY: X-RAY CHEST REASON FOR EXAM: Female, 56 years old. ET tube positioning TECHNIQUE: Single AP portable view of the chest. COMPARISON: June 22, 2022 FINDINGS: 1. Stable endotracheal and feeding tubes in good position. 2. Redemonstration of moderate patchy pneumonic infiltrates scattered throughout both lungs 3. Redemonstration of a small left lower lobe pleural effusion 4. Mild cardiomegaly unchanged from the prior study 5. No pneumothorax is present 6. Stable mediastinal and osseous structures. 7. There is slight retraction of the tip of the right side PICC line which is at the brachiocephalic junction. There is no demonstrated abnormality of the visualized soft tissue structures of the upper abdomen. RAD/Chest 1 View (Portable) IMPRESSION: No change in moderate bilateral patchy pneumonic infiltrates Electronically Signed: Crescencio Roblero MD at 10:34 EST ,
--- NOTE | 2022-06-23 11:25 | NURSING ---
Dr. Ocampo at bedside for EGD, per verbal order increased fentanyl to 150 mcg/min.
[2022-06-23 11:36] LABS: Magnesium 2.5 mg/dL (1.6-2.6)
--- NOTE | 2022-06-23 12:23 | OP.EGD_ITS ---
Patient Name: Reta Castellanos Procedure Date: 06/23/2022 11:11 AM Date of : 1965 Age: 56 Procedure: Upper GI endoscopy Indications: Coffee-ground emesis, Hematemesis Providers: Feliciano Ocampo DO Medicines: Fentanyl 150 micrograms IV Patient Profile: This is a 56 year old female. Refer to note in patient chart for documentation of history and physical. Patient has symptoms of acute vomiting. Complications: No immediate complications. Procedure: Pre-Anesthesia Assessment: - Prior to the procedure, a History and Physical was performed, and patient medications and allergies were reviewed. The patient is competent. The risks and benefits of the procedure and the sedation options and risks were discussed with the patient. All questions were answered and informed consent was obtained. Patient identification and proposed procedure were verified by the physician in the pre-procedure area. Mental Status Examination: alert and oriented. Airway Examination: normal oropharyngeal airway and neck mobility. Respiratory Examination: clear to auscultation. CV Examination: normal. Prophylactic Antibiotics: The patient does not require prophylactic antibiotics. Prior Anticoagulants: The patient has taken no previous anticoagulant or antiplatelet agents. ASA Grade Assessment: II - A patient with mild systemic disease. After reviewing the risks and benefits, the patient was deemed in satisfactory condition to undergo the procedure. The anesthesia plan was to use moderate sedation / analgesia (conscious sedation). Immediately prior to administration of medications, the patient was re-assessed for adequacy to receive sedatives. The heart rate, respiratory rate, oxygen saturations, blood pressure, adequacy of pulmonary ventilation, and response to care were monitored throughout the procedure. The physical status of the patient was re-assessed after the procedure. After obtaining informed consent, the endoscope was passed under direct vision. Throughout the procedure, the patient's blood pressure, pulse, and oxygen saturations were monitored continuously. The gastroscope was introduced through the mouth, and advanced to the second part of duodenum. The upper GI endoscopy was accomplished without difficulty. The patient tolerated the procedure well. Scope In: 11:29:47 AM Scope Out: 11:40:15 AM Total Procedure Duration Time 0 hours 10 minutes 28 seconds Findings: LA Grade C (one or more mucosal breaks continuous between tops of 2 or more mucosal folds, less than 75% circumference) esophagitis with bleeding was found 36 to 40 cm from the incisors. Two oozing cratered gastric ulcers with a visible vessel were found on the lesser curvature of the stomach. The largest lesion was 4 mm in largest dimension. For hemostasis, three hemostatic clips were successfully placed. There was no bleeding at the end of the procedure. Two non-bleeding cratered gastric ulcers with no stigmata of bleeding were found in the gastric body. The largest lesion was 6 mm in largest dimension. The first portion of the duodenum was normal. Impression: - LA Grade C erosive esophagitis. - Oozing gastric ulcers with a visible vessel. Clips were placed. - Non-bleeding gastric ulcers with no stigmata of bleeding. - Normal first portion of the duodenum. - No specimens collected. Recommendation: - Return patient to ICU for ongoing care. - NPO. - Continue present medications. Procedure Code(s): --- Professional --- 47682, Esophagogastroduodenoscopy, flexible, transoral; with control of bleeding, any method CPT copyright 2017 [employer]. All rights reserved. The codes documented in this report are preliminary and upon farmworker poultry review may be revised to meet current compliance requirements. Feliciano Ocampo DO 06/23/2022 12:22:56 PM This report has been signed electronically. Number of Addenda: 0 Note Initiated On: 06/23/2022 11:11 AM
--- NOTE | 2022-06-23 12:24 | OP.CCLET_ITS ---
06/23/2022 Fritz Villatoro [address] [facility] [place] [address] Re : Upper GI endoscopy procedure for Reta Castellanos Dear Dr. Villatoro This procedure was performed on Thursday, June 23, 2022. My impressions and recommendations are as follows: Impressions : - LA Grade C erosive esophagitis. - Oozing gastric ulcers with a visible vessel. Clips were placed. - Non-bleeding gastric ulcers with no stigmata of bleeding. - Normal first portion of the duodenum. - No specimens collected. Recommendations : - Return patient to ICU for ongoing care. - NPO. - Continue present medications. My findings are described in the full procedure note, which is enclosed. If I can be of further assistance, please feel free to contact me at . Sincerely, Feliciano Ocampo, 06/23/2022 12:22:56 PM This report has been signed electronically.
--- NOTE | 2022-06-23 13:20 | CASEMGMT ---
RACHEL CM Face to Face with , Kit, for initial transition planning/care coordination assessment as patient is currently intubated. RN CM introduced self and role at [facility]. willing to participate in assessment and is able to answer all questions appropriately. Care providers, pharmacy, and demographics verified. Kit states he has no further needs or concerns at this time. CM to follow for discharge planning needs that may arise. PCP: Irving Specialists: none Preferred Pharmacy: [facility] Insurance: [employer] [facility] Prescription Benefit: yes Living Will/HPOA: none LNOK: , sons Living Arrangements: Patient lives with in a mobile home with 3 steps and grab bar to enter the home. Per patient was independent at home prior to hospitalization. Transportation: self, DME/HHC: Patient has canes, walker, raised toilet, grab bars and shower chair at home. Patient has attended outpatient therapy previously. No previous HHC or SNF. Disposition Plan: TBD by course of treatment and progress with therapy. Tracee RICHARDSON, RN, CM
[2022-06-23] MEDS: Menthol/Lanolin/Calamine/Znox 113 GM Tube 1 APPLIC TOPICAL ×2 (13:23→21:49)
[2022-06-23 14:17] LABS: Vancomycin, Trough Level 22.7 ug/mL (5.0-15.0)
[2022-06-23] MEDS: Furosemide 100 MG/10 ML Vial 80 MG IV (16:48)
[2022-06-23] MEDS: 0.9% Saline Lock 10 ML Syringe IV (16:48)
[2022-06-23] MEDS: Digoxin 250 MCG/ML Ampul 400 MCG IV (21:21)
[2022-06-23] MEDS: TITRATION PARAMETER CHANGE 1 EACH IV (21:21)
[2022-06-24] VITALS (52 sets, daily range): BP systolic 96–152; BP diastolic 47–68; PULSE 94–114; RESP 12–23; TEMP 36.2–37.9; O2SAT 88–97
[2022-06-24] MEDS: Hydrocortisone Sod Succinate 100 MG/2 ML Vial 50 MG IV ×5 (00:52→23:45)
[2022-06-24] MEDS: Ipratropium/Albuterol Sulfate 3 ML AMPUL.NEB INHALATION ×5 (02:58→18:53)
[2022-06-24 03:25] LABS: Hematocrit 27.1 % (37-47); Hemoglobin 8.6 g/dL (12.0-15.0); Mean Corp Hgb Conc 31.7 g/dL (32-36); Mean Corpuscular Hgb 25.5 pg (27.0-32.0); Mean Corpuscular Volume 80.4 fL (81-99); POSITIVE COUNT YES; POSITIVE MORPHOLOGY YES; RBC Distribution Width CV 23.5 % (11.6-14.6); RBC Distribution Width SD 65.6 fl (35.1-43.9); Red Blood Count 3.37 M/mm3 (4.2-5.4); White Blood Count 19.1 K/mm3 (4.4-11.0)
[2022-06-24 03:38] LABS: Differential Indicated MANUAL DIFF; Platelet Count 39 K/mm3 (150-450)
[2022-06-24 03:47] LABS: Lymphocyte 5 % (19-41); Metamyelocyte 3 % (0-1); Monocyte 4 % (0-10); Myelocyte 1 % (0-0); Neutrophil-Band 7 % (0-5); Neutrophil-Segmented 80 % (47-70); Platelet Estimate MKD DEC (ADEQ); Total Cells Counted 100 (MANUAL DIFF)
[2022-06-24 03:48] LABS: Absolute Lymphocyte Count 0.96 X10^3/uL (0.83-4.51); Absolute Neutrophil Count 16.6 X10^3/uL (2.0-7.7); Anisocytosis 1+; Hypochromasia 2+; Lymphocyte # 0.96 X10^3/ul (0.83-4.51); Microcytosis 1+; Neutrophil # 16.63 X10^3/uL (2.7-7.7)
[2022-06-24 04:47] LABS: Anion Gap 6 (5-15); BUN 119 mg/dL (7-18); BUN/Creat Ratio 45.2 RATIO (10-20); Calcium,Total 7.2 mg/dL (8.5-10.1); Chloride 110 mmol/L (98-107); Creatinine, Serum 2.63 mg/dL (0.55-1.02); EST Glomerular Filtration Rate 20 mL/min (>60); Est Glom Filt Rate - Afr Amer 24 mL/min (>60); Estimated Creatinine Clearance 23.52 ml/min; Glucose 137 mg/dL (74-106); Potassium 4.9 mmol/L (3.5-5.1); Sodium Level 143 mmol/L (136-145)
[2022-06-24] MEDS: CHLORHEXIDINE GLUC 2% CLOTH 1 EACH TOWELETTE TOPICAL (05:37)
[2022-06-24] MEDS: 0.9% Saline Lock 10 ML Syringe IV ×2 (05:38→18:58)
[2022-06-24] MEDS: Menthol/Lanolin/Calamine/Znox 113 GM Tube 1 APPLIC TOPICAL ×3 (05:52→21:36)
--- NOTE | 2022-06-24 07:18 | PN.CC_ITS ---
Assessment & Plan Assessment/Plan (1) Septic shock: PLAN: Plan RECOMMENDATIONS: 1. Continue assist-control mode mechanical ventilation. Wean FiO2 and PEEP to maintain saturations at or above 90%. 2. Continue empiric broad-spectrum antimicrobials. 3. Continue vasopressor support in an attempt to maintain a mean arterial pressure at or above 65 mmHg. 4. Consult nephrology. Possible need for hemodialysis 5. Continue stress dose steroids. 6. Spontaneous breathing and awakening trials per protocol 7. Continue PPI therapy as ordered. 8. Continue to monitor H&H and transfuse if hemoglobin drops below 7 g/dL. 9. Lactulose and rifaximin per GI recommendations. 10. Initiate tube feeds when okay with GI IMPRESSIONS: 1. Septic shock with multisystem organ failure The patient presented to the hospital with a number of vague musculoskeletal complaints. She ultimately suffered from a cardiac arrest on th morning of June 21 and was subsequently found to have staph bacteremia. The patient has went on to develop fulminant septic shock with multisystem organ failure requiring multiple vasopressors. Patient has been holding pressure on minimal doses of Levophed. The patient will be continued on broad-spectrum antimicrobials. Cultures are showing both MSSA and E. coli. Echocardiogram shows elevated pulmonary artery pressures of 40 mmHg, but EF is preserved at 60%. She will be maintained on stress dose steroids, pending improvement in her hemodynamic status. Possibly wean stress dose steroids once off of pressors. 2. Acute combined respiratory failure The patient does have findings on plain film chest imaging concerning for underlying infection. However, she remains on empiric broad-spectrum antimicrobials. Sputum culture is currently pending. Continue assist-control mode mechanical ventilation. Wean FiO2 and PEEP to maintain oxygen saturations at or above 90%. Patient significantly volume positive. We will challenge with diuretics given improvement in blood pressure. Endotracheal tube does appear to be somewhat high. We will move endotracheal tube in and obtain a chest x-ray to for confirmation of appropriate positioning. 3. Acute kidney injury Likely prerenal/ischemic ATN in the setting of #1. Continue supportive measures as noted above. Creatinine has worsened. Continue to monitor urine output. Patient may require renal replacement therapy. We will consult nephrology for recommendations. Patient does have significant elevation of BUN with decreased urine output. No significant metabolic acidosis is noted 4. History of alcoholic hepatitis/chronic alcohol dependency Complicates care, management, recovery and prognosis. Continue supportive care per GI recommendations. TIME: 35 minutes of critical care time, independent of procedures, was spent addressing the patient's septic shock with multisystem organ failure, acute combined respiratory failure, acute kidney injury, alcoholic hepatitis, review of all data and collaboration with the care team. Subjective Subjective Patient did have periods of paroxysmal A. fib overnight. This was treated with digoxin and resolution. Patient remains n.p.o. given findings on EGD yesterday. Patient did not have significant urine output despite challenges of 40 and 80 mg of Lasix. Patient does have spontaneous movement, but is not following commands at this time. Objective Data Objective Data Vital Signs: Vital Signs Temp Pulse Resp BP Pulse Ox O2 Del Method O2 Flow Rate 36.4 C L 97 14 119/58 L 90 Mechanical Ventilator 4 06/24/22 07:00 06/24/22 07:00 06/24/22 07:00 06/24/22 07:00 06/24/22 07:00 06/24/22 07:00 06/21/22 09:00 FiO2 55 06/24/22 07:00 Oxygen Flow Rate (L/min) 4 Oxygen Delivery Method Mechanical Ventilator Weight: 121.1 kg Body Mass Index (BMI) 40.3 Intake & Output: Intake and Output for Last 24 Hours 06/22/22 06/23/22 06/24/22 23:59 23:59 23:59 Intake Total 6533.20 / 6542.42 1464.36 / 1520.66 218.62 / 218.62 Output Total 1105 / 1155 770 / 810 255 / 255 Balance 5428.20 / 5387.42 694.36 / 710.66 -36.38 / -36.38 Lab / Micro Data Attestation: I reviewed the patient's lab results. Result Diagrams: 06/24/22 03:10 06/24/22 03:10 Labs: Laboratory Results - last 24 hr 06/23/22 03:40: Magnesium 2.5 06/23/22 07:50: PT 18.4 H, INR 1.6 06/23/22 13:40: Vancomycin Trough 22.7 H 06/24/22 03:10: WBC 19.1 H, RBC 3.37 L, Hgb 8.6 L, Hct 27.1 L, MCV 80.4 L, MCH 25.5 L, MCHC 31.7 L, RDW Std Deviation 65.6 H, RDW Coeff of Arnold 23.5 H, Plt Count 39 L*, MPV TNP, Neut % (Auto) Not Reportable, Absolute Neuts (auto) 16.6 H , Absolute Lymphs (auto) 0.96, Total Counted 100, Neutrophils % (Manual) 80 H, Band Neutrophils % 7 H, Lymphocytes % (Manual) 5 L, Monocytes % (Manual) 4, Metamyelocytes % 3 H, Myelocytes % 1 H, Diff Path Review May foll, Platelet Estimate MKD DEC, Hypochromasia 2+, Anisocytosis 1+, Microcytosis 1+ 06/24/22 03:10: Sodium 143, Potassium 4.9, Chloride 110 H, Carbon Dioxide 27.0, Anion Gap 6, BUN 119 H*, Creatinine 2.63 H, Estim Creat Clear Calc 23.52, Est GFR (MDRD) Af Amer 24 L, Est GFR (MDRD) Non-Af 20 L, BUN/Creatinine Ratio 45.2 H , Glucose 137 H, Calcium 7.2 L Micro: Microbiology 06/21/22 14:00 Urine Catheter - De La Fuente Urine Culture - Final Escherichia coli Staphylococcus aureus 06/21/22 11:35 Blood Culture (Wb) - Other Blood Culture - Final Staphylococcus aureus 06/21/22 09:39 Sputum, Induced/Lukens Gram Stain - Final 06/21/22 09:39 Sputum, Induced/Lukens Respiratory Culture - Final Staphylococcus aureus Escherichia coli 06/21/22 11:35 Blood Culture (Wb) - Other Blood Culture - Final Staphylococcus aureus 06/21/22 15:43 Nasal Secretion SARS-CoV-2 Antigen (Rapid) - Final 06/21/22 14:00 Urine Catheter - Catheter Streptococcus pneumoniae Antigen (M - Final 06/21/22 14:00 Urine Catheter - De La Fuente Legionella Antigen - Final 06/21/22 10:03 Mucosa - Nose - Final Radiography Diagnostic Testing: Radiology Impression Venous Doppler Study 06/20/22 17:11 Interpretation Summary Deep veins of the right lower extremity are patent and compressible segmentally. There is no evidence of right lower extremity deep vein thrombosis. The right great saphenous vein appears patent and compressible segmentally. Ordering Physician: Mona Deluna Referring Physician: Fritz Villatoro Performed By: Tracee Hernandez RVT Echocardiogram 06/22/22 06:27 Interpretation Summary Normal LV size. Left ventricular systolic function is normal. The estimated ejection fraction is 60 %. Pulmonary artery systolic pressure is 40 mmHg. Structurally normal valves. Contrast injection was performed. Ordering Physician: Samson Mott Referring Physician: Fritz Villatoro Performed By: Kanwal Burton RCS Chest X-Ray 06/23/22 10:05 IMPRESSION: No change in moderate bilateral patchy pneumonic infiltrates Electronically Signed: Crescencio Roblero MD at 10:34 EST Reading Location ID and State: [address] [place] [address] , Service support , Physical Exam Const Constitutional Narrative: The patient is quite ill and toxic in appearance. She is intubated, sedated and mechanically ventilated. Anasarca noted HEENT normocephalic and head/scalp atraumatic Eyes PERRL and EOMs intact bilaterally Neck supple General: trachea midline Chest inspection of chest normal Resp Resp Narrative: Coarse mechanical breath sounds bilaterally, worse on the right. Breathing over the vent Auscultation: rhonchi and diminished lung sounds; Negative for rales or wheezes Cardio regular rate, regular rhythm, S1 normal heart sound, S2 normal heart sound and no murmurs GI normal to inspection, nondistended, normoactive bowel sounds Inspection: anasarca present and abdominal distention Auscultation: normoactive bowel sounds Extremity no clubbing, cyanosis or edema General Extremity: edema Skin Skin Narrative: Punctate skin wounds noted without surrounding erythema Neuro Sensorium / Orientation: sedated on vent Psych Mood & Affect: flat affect Charges/Coding Procedures Hospitalists Procedures: 75059 Critial Care 1st Hr
[2022-06-24 07:38] LABS: AST(SGOT) 218 U/L (15-37); Alanine Aminotransfer ALT/SGPT 72 U/L (13-56); Albumin, Serum 1.4 g/dL (3.2-5.0); Alkaline Phosphatase 88 U/L (45-117); Bilirubin, Direct 8.26 mg/dL (0.00-0.30); Protein, Total 5.4 g/dL (6.4-8.2)
--- NOTE | 2022-06-24 08:18 | PN.HOSP_ITS ---
Subjective Subjective Follow-up on septic shock/acute cardiopulmonary arrest/acute GI bleed: Patient was seen and examined.?Overnight, and went to A. fib with RVR, a dose of digoxin was given . Her Levophed drip is being weaned off. Urine output has decreased. Objective Data Objective Data Vital Signs: Vital Signs Temp Pulse Resp BP Pulse Ox O2 Del Method O2 Flow Rate 97.6 F L 97 14 119/58 L 90 Mechanical Ventilator 4 06/24/22 07:00 06/24/22 07:22 06/24/22 07:00 06/24/22 07:00 06/24/22 07:00 06/24/22 07:00 06/21/22 09:00 FiO2 55 06/24/22 07:00 Oxygen Flow Rate (L/min) 4 Oxygen Delivery Method Mechanical Ventilator Weight: 121.1 kg Body Mass Index (BMI) 40.3 Intake & Output: Intake and Output for Last 24 Hours 06/22/22 06/23/22 06/24/22 23:59 23:59 23:59 Intake Total 6533.20 / 6542.42 1464.36 / 1520.66 218.62 / 218.62 Output Total 1105 / 1155 770 / 810 285 / 285 Balance 5428.20 / 5387.42 694.36 / 710.66 -66.38 / -66.38 Lab / Micro Data Result Diagrams: 06/24/22 03:10 06/24/22 03:10 Labs: Laboratory Results - last 24 hr 06/23/22 03:40: Magnesium 2.5 06/23/22 13:40: Vancomycin Trough 22.7 H 06/24/22 03:10: WBC 19.1 H, RBC 3.37 L, Hgb 8.6 L, Hct 27.1 L, MCV 80.4 L, MCH 25.5 L, MCHC 31.7 L, RDW Std Deviation 65.6 H, RDW Coeff of Arnold 23.5 H, Plt Count 39 L*, MPV TNP, Neut % (Auto) Not Reportable, Absolute Neuts (auto) 16.6 H , Absolute Lymphs (auto) 0.96, Total Counted 100, Neutrophils % (Manual) 80 H, Band Neutrophils % 7 H, Lymphocytes % (Manual) 5 L, Monocytes % (Manual) 4, Metamyelocytes % 3 H, Myelocytes % 1 H, Diff Path Review May foll, Platelet Estimate MKD DEC, Hypochromasia 2+, Anisocytosis 1+, Microcytosis 1+ 06/24/22 03:10: Sodium 143, Potassium 4.9, Chloride 110 H, Carbon Dioxide 27.0, Anion Gap 6, BUN 119 H*, Creatinine 2.63 H, Estim Creat Clear Calc 23.52, Est GFR (MDRD) Af Amer 24 L, Est GFR (MDRD) Non-Af 20 L, BUN/Creatinine Ratio 45.2 H , Glucose 137 H, Calcium 7.2 L 06/24/22 03:10: Total Bilirubin 9.80 H, Direct Bilirubin 8.26 H, AST 218 H, ALT 72 H, Alkaline Phosphatase 88, Total Protein 5.4 L, Albumin 1.4 L, Globulin 4.0 Micro: Microbiology 06/21/22 14:00 Urine Catheter - De La Fuente Urine Culture - Final Escherichia coli Staphylococcus aureus 06/21/22 11:35 Blood Culture (Wb) - Other Blood Culture - Final Staphylococcus aureus 06/21/22 09:39 Sputum, Induced/Lukens Gram Stain - Final 06/21/22 09:39 Sputum, Induced/Lukens Respiratory Culture - Final Staphylococcus aureus Escherichia coli 06/21/22 11:35 Blood Culture (Wb) - Other Blood Culture - Final Staphylococcus aureus 06/21/22 15:43 Nasal Secretion SARS-CoV-2 Antigen (Rapid) - Final 06/21/22 14:00 Urine Catheter - Catheter Streptococcus pneumoniae Antigen (M - Final 06/21/22 14:00 Urine Catheter - De La Fuente Legionella Antigen - Final 06/21/22 10:03 Mucosa - Nose - Final Radiography Diagnostic Testing: Radiology Impression Venous Doppler Study 06/20/22 17:11 Interpretation Summary Deep veins of the right lower extremity are patent and compressible segmentally. There is no evidence of right lower extremity deep vein thrombosis. The right great saphenous vein appears patent and compressible segmentally. Ordering Physician: Mona Deluna Referring Physician: Fritz Villatoro Performed By: Tracee Hernandez RVT Echocardiogram 06/22/22 06:27 Interpretation Summary Normal LV size. Left ventricular systolic function is normal. The estimated ejection fraction is 60 %. Pulmonary artery systolic pressure is 40 mmHg. Structurally normal valves. Contrast injection was performed. Ordering Physician: Samson Mott Referring Physician: Fritz Villatoro Performed By: Kanwal Burton RCS Chest X-Ray 06/23/22 10:05 IMPRESSION: No change in moderate bilateral patchy pneumonic infiltrates Electronically Signed: Crescencio Roblero MD at 10:34 EST Reading Location ID and State: [address] [place] [address] , Service support , Physical Exam Narrative Physical exam: General: Sedated, intubated, on mechanical ventilator, anasarca HEENT: Atraumatic, ETT and OG tube in situ Oral: Moist Mucosa Neck: Supple Lungs: Diminished to auscultation Cardiovascular: HS I+II, regular, no murmurs Abdomen: Bowel Sounds Present, Soft, Non Tender Extremities:Bilateral pedal edema +1 Skin: No rashes, No breakdown Neurological: Grossly intact Psych/Mental Status: Appropriate Assessment & Plan Assessment/Plan (1) Cardiopulmonary arrest with successful resuscitation: (2) Septic shock: PLAN: Plan 1. Septic shock likely secondary to staph aureus bacteremia/E. coli/staph aureus UTI, somehow improving Urine cultures growing E. coli and staph aureus. Blood cultures growing MSSA Continue on pressors, cefazolin, hydrocortisone 2. CHEN, likely prerenal from #1, worsening BUN increased to 119 and Cr 2.63. Urine output is reduced but nonoliguric Nephrology consult, trend labs 3. Acute GI bleed secondary to 2 gastric ulcers, s/p EGD on 06/24/22, Status post clipping over visible vessels Continue on octreotide, IV PPI BID 4. Anemia, acute blood loss, secondary to #3, s/p 2 units pRBCs Hb is 8.6, will continue to monitor 5. 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 Acute cardiopulmonary arrest, likely multifactorial, will continue to monitor. 6. Acute combined respiratory metabolic acidosis, improved Patient was on bicarb drip yesterday, been off since 7. Acute transaminitis, worsening GI following, continue rifaximin, will trend LFTs in am 8. Hypokalemia, resolved 9. Thrombocytopenia, acute on chronic, likely secondary to alcohol use We will trend 10. Hepatic steatosis secondary to chronic alcohol use, continue lactulose, rifaximin GI following 11. DVT PPx- SCDS Charges/Coding Visit Charges Inpatient E&M: 51643 Subs Hosp L3
[2022-06-24 08:30] LABS: CPK Total, Creatine Kinase 167 U/L (26-192); Uric Acid 12.8 mg/dL (2.6-6.0)
[2022-06-24] MEDS: Lactulose 20 GM/30 ML UDC GT ×2 (10:13→21:42)
[2022-06-24] MEDS: Chlorhexidine 15 ML PO ×2 (10:13→21:38)
[2022-06-24] MEDS: Potassium Chloride Oral Soln 20 MEQ/15 ML UDC GT ×2 (10:13→12:31)
[2022-06-24] MEDS: rifAXIMin 550 MG Tablet GT ×2 (10:14→21:42)
--- NOTE | 2022-06-24 10:24 | CON.PCM.ID_ITS ---
Assessment & Plan Assessment/Plan (1) MSSA bacteremia: PLAN: septic shock due to mssa bacteremia - Ucx and sputum cx with ecoli and mssa. Wbc and BP improved. Fever resolving. TTE showed no veg. No sign of metastatic infection on exam. Will check repeat bcx. Will check noncontrast CT abd/pelvis to look for ascites and renal obstruction/stone/abscess. Will narrow vanc/cefepime to cefazolin. Platelets, bilirubin, and Cr cont to worsen. Will follow, thank you (2) GI bleed: (3) Septic shock: (4) Cardiopulmonary arrest with successful resuscitation: (5) Alcoholic hepatitis: HPI Consult Data Date of Consult: 06/24/22 HPI Narrative Reason for Consultation: bacteremia HPI Narrative: NU BASURTO, is a 56 F with h/o etoh abuse, presented 06/20 with about a week of generalized aches, fatigue, mild nausea. thinks her drinking had gotten much worse recently (H&P reports one large bottle of vodka a day). Has some small scratches from their cats, but no recent skin infections. No recent complaints of cough, SOB, fever, or dysuria. Came to ED, treated for hypoxia, progressive hypotension, abnormal LFTs. GI consulted. Pt coded 06/21, started on vanc/cefepime, remains in icu on vent and pressor. ROS unobtainable due to intubation [facility] Medical History Acute post-gastric reduction surgery (APGARS) neuropathy Former smoker Hepatitis Hyperlipidemia Hypertension Lactic acidosis Liver failure TGA (transient global amnesia) TIA (transient ischemic attack) Home Medications fluoxetine 10 mg capsule 10 mg PO PRN PRN depression 01/19/21 [History Last Taken 06/20/22] potassium chloride 20 mEq tablet,extended release(part/cryst) (Klor-Con M) 20 meq PO TID supplement 01/23/22 [History Last Taken 06/20/22] gabapentin 300 mg capsule 300 mg PO TID nerve pain 04/02/22 [History Last Taken 06/20/22] magnesium oxide 400 mg (241.3 mg magnesium) tablet 400 mg PO BID supplement 0 04/02/22 [History Last Taken 06/19/22] clonidine HCl 0.2 mg tablet 0.2 mg PO DAILY HEART 06/20/22 [History Last Taken 06/20/22] diclofenac potassium 50 mg tablet 50 mg PO TID PRN Pain 06/20/22 [History Last Taken 06/20/22] furosemide 40 mg tablet 40 mg PO DAILY FLUID 06/20/22 [History Last Taken 06/03 03/24] pantoprazole 20 mg tablet,delayed release 20 mg PO DAILY GERD 06/20/22 [History Last Taken 06/20/22] pentoxifylline 400 mg tablet,extended release 400 mg PO DAILY LIVER 06/20/22 [History Last Taken 06/20/22] Allergy/AdvReac Type Severity Reaction Status Date / Time bee venom protein (honey bee) Allergy Swelling Verified 06/20/22 09:58 Family History Father Hypertension Mother Hypertension Surgical History Gastric bypass status for obesity History of total knee arthroplasty Previous back surgery Social History household members: spouse housing: house Smoking Status: Former smoker alcohol intake: current substance use type: does not use Physical Exam Const Constitutional Narrative: intubated, stirs with physical stim HEENT normocephalic and head/scalp atraumatic Eyes PERRL Neck supple and No nodes Resp Resp Narrative: mild rhonchi Effort and Inspection: mechanically ventilated Cardio Rate: tachycardic GI soft to palpation and non-tender; Negative for non-distended Extremity Extremity Narrative: edema in LLE more than R. No pain with movements of major joints, none are warm/red General Extremity: edema Skin Skin Narrative: some small scabbed lesions. RUE picc in place. R antecub iv is red. No splinter hemorrhages on hands or feet Neuro Neuro Narrative: unable to follow commands Lab / Micro Data Attestation: I reviewed the patient's lab results. Result Diagrams: 06/24/22 03:10 06/24/22 03:10 Labs: Laboratory Results - last 24 hr 06/23/22 03:40: Magnesium 2.5 06/23/22 13:40: Vancomycin Trough 22.7 H 06/24/22 03:10: WBC 19.1 H, RBC 3.37 L, Hgb 8.6 L, Hct 27.1 L, MCV 80.4 L, MCH 25.5 L, MCHC 31.7 L, RDW Std Deviation 65.6 H, RDW Coeff of Arnold 23.5 H, Plt Count 39 L*, MPV TNP, Neut % (Auto) Not Reportable, Absolute Neuts (auto) 16.6 H , Absolute Lymphs (auto) 0.96, Total Counted 100, Neutrophils % (Manual) 80 H, Band Neutrophils % 7 H, Lymphocytes % (Manual) 5 L, Monocytes % (Manual) 4, Metamyelocytes % 3 H, Myelocytes % 1 H, Diff Path Review December, Platelet Estimate MKD DEC, Hypochromasia 2+, Anisocytosis 1+, Microcytosis 1+ 06/24/22 03:10: Sodium 143, Potassium 4.9, Chloride 110 H, Carbon Dioxide 27.0, Anion Gap 6, BUN 119 H*, Creatinine 2.63 H, Estim Creat Clear Calc 23.52, Est GFR (MDRD) Af Amer 24 L, Est GFR (MDRD) Non-Af 20 L, BUN/Creatinine Ratio 45.2 H , Glucose 137 H, Calcium 7.2 L 06/24/22 03:10: Total Bilirubin 9.80 H, Direct Bilirubin 8.26 H, AST 218 H, ALT 72 H, Alkaline Phosphatase 88, Total Protein 5.4 L, Albumin 1.4 L, Globulin 4.0 06/24/22 03:10: Uric Acid 12.8 H, Total Creatine Kinase 167 Micro: Microbiology 06/21/22 14:00 Urine Catheter - De La Fuente Urine Culture - Final Escherichia coli Staphylococcus aureus 06/21/22 11:35 Blood Culture (Wb) - Other Blood Culture - Final Staphylococcus aureus 06/21/22 09:39 Sputum, Induced/Lukens Gram Stain - Final 06/21/22 09:39 Sputum, Induced/Lukens Respiratory Culture - Final Staphylococcus aureus Escherichia coli 06/21/22 11:35 Blood Culture (Wb) - Other Blood Culture - Final Staphylococcus aureus Radiology Impression Venous Doppler Study 06/20/22 17:11 Interpretation Summary Deep veins of the right lower extremity are patent and compressible segmentally. There is no evidence of right lower extremity deep vein thrombosis. The right great saphenous vein appears patent and compressible segmentally. Ordering Physician: Mona Deluna Referring Physician: Fritz Villatoro Performed By: Tracee Hernandez RVT Echocardiogram 06/22/22 06:27 Interpretation Summary Normal LV size. Left ventricular systolic function is normal. The estimated ejection fraction is 60 %. Pulmonary artery systolic pressure is 40 mmHg. Structurally normal valves. Contrast injection was performed. Ordering Physician: Samson Mott Referring Physician: Fritz Villatoro Performed By: Kanwal Burton RCS Chest X-Ray 06/23/22 10:05 IMPRESSION: No change in moderate bilateral patchy pneumonic infiltrates Electronically Signed: Crescencio Roblero MD at 10:34 EST ,
--- NOTE | 2022-06-24 10:24 | CT_ITS ---
HISTORY: liver failure. TECHNIQUE: Helically acquired images were obtained of the abdomen and pelvis without oral or IV contrast. A radiation dose optimization technique was used for this scan. 556 images. COMPARISON: 01/23/2022. FINDINGS: LOWER CHEST: Multiple small cavitary and noncavitary nodules in the lung bases with alveolar opacities and air bronchograms. Nodular thickening along the right fissure. Mild right pleural effusion. BOWEL: Gastric postoperative change. Nasogastric tube tip in the proximal duodenum. Small bowel with mild fluid distention. Appendix not well visualized. Gaseous distention of colon with the right colon dilated to 9 cm but the descending colon and sigmoid colon relatively normal in caliber. PERITONEUM: Mild free fluid in the abdomen and pelvis. Varices noted. LIVER: Fatty infiltration. GALLBLADDER/BILIARY TREE: Gallbladder present. SPLEEN/PANCREAS: Nonenlarged. KIDNEYS AND URETERS: No nephrolithiasis or obstructing renal calculus. ADRENAL GLANDS: No nodules. VESSELS: No abdominal aortic aneurysm. Mild atherosclerosis. Mild stranding adjacent to the left psoas muscle. PELVIC ORGANS: De La Fuente catheter decompression of the bladder. ABDOMINAL WALL: Mild dependent subcutaneous edema. BONES: Degenerative change. Mild subacute lumbar compression fracture. CT/Abdomen/Pelvis without Cont IMPRESSION: Alveolar opacities in the lung bases with multiple small cavitary nodules, concerning for pneumonia and possible septic emboli. Recommend follow-up to exclude pulmonary metastases. Gastric postoperative changes with nasogastric tube tip in the proximal duodenum. Fluid distention of small bowel compatible with enteritis and ileus. Gaseous and fluid distention and dilatation of the proximal to mid colon, likely colonic pseudoobstruction/colonic ileus. Hepatic steatosis. Mild ascites. Mild stranding adjacent to the left psoas muscle from mild retroperitoneal edema or hemorrhage. Electronically Signed: Cecilia Snider MD at 12:27 EST ,
[2022-06-24] MEDS: Cefazolin 1 GM/50 ML BAG IV ×2 (10:47→21:36)
[2022-06-24] MEDS: Vital AF 1.2 Cal Liquid 1,000 ML 20 ML GT (10:47)
--- NOTE | 2022-06-24 13:43 | PCM.CONS.R ---
Documented by User: GISELLE Sheffield 06/24/22 14:17 Assessment & Plan Assessment/Plan (1) Cardiopulmonary arrest with successful resuscitation: (2) Septic shock: (3) CHEN (acute kidney injury): (4) GI bleed: PLAN: Plan Initially nonoliguric CHEN likely pre-renal from septic shock (staff aureus bacteremia and E. coli/staph aureus UTI), cardiopulmonary arrest with decreased renal perfusion which has likely evolved to ATN. Patient has normal baseline creatinine. Serum creatinine was slightly elevated on admission but today has risen to 2.6 mg/dL, BUN 119, K+ 4.9 and C02 27. Initially patient was nonoliguric but urine output is dropping off even after receiving multiple doses of IV Lasix yesterday. BUN elevated likely multifactorial from IV steroids, acute GI bleed. At this time there is no acute indication for GLOBAL MARKETING OPERATIONS MANAGER today but it does appear patient is heading towards needing GLO[employer] MARKETING OPERATIONS MANAGER. Family is not at bedside, discussion was held with patient's today with nursing and should patient need dialysis he is in agreement. Patient is not hyperkalemic however she is becoming fluid overloaded. Will follow renal function trajectory, labs ordered for this evening. If renal function worse and/or UOP decreasing then will likely start GLOBAL MARKETING OPERATIONS MANAGER via temporary hemodialysis catheter. Potassium was low but has improved on oral K+ supplement. Will decrease from tid to bid starting tomorrow (no further K+ today) as if renal function worsens could possibly see hyperkalemia. K+ is 4.9 today. GI is following patient for elevated liver enzymes, alcohol hepatitis/thrombocytopenia/hepatomegaly. She did have Upper GI with findings of oozing gastric ulcers s/p clipping. She is on PPI gtt, lactulose, Rifaximin. Further orders forthcoming as hospitalizaiton evolves. Thank you for allowing us to participate in care of Ms. Castellanos. HPI Consult Data Date of Consult: 06/24/22 HPI Narrative HPI Narrative: NU CASTELLANOS, is a 56 F who presented to the emergency room on June 20 with complaints of generalized weakness, shoulder pain. Patient was admitted for decompensated heart failure, debility, elevated liver enzymes. Unfortunately on June 21 patient became unresponsive, pulseless therefore CPR and ACLS protocol used and patient's resuscitation successful with ROSC. She is in ICU, on vent therefore information gathered from the chart. We were consulted for acute kidney injury, low urine output. In reviewing past lab work, patient has normal baseline creatinine. On April 05, 2022 creatinine 0.96 mg/dL. On admission to the emergency room serum creatinine 1.79 mg/dL. Today creatinine is 2.63 mg/dL, BUN 119. Patient had 2 doses of Lasix IV yesterday with last dose of 80 mg last evening. Urine output today so far about 300 mL. [facility] Medical History Acute post-gastric reduction surgery (APGARS) neuropathy Former smoker Hepatitis Hyperlipidemia Hypertension Lactic acidosis Liver failure TGA (transient global amnesia) TIA (transient ischemic attack) Home Medications fluoxetine 10 mg capsule 10 mg PO PRN PRN depression 01/19/21 [History Last Taken 06/20/22] potassium chloride 20 mEq tablet,extended release(part/cryst) (Klor-Con M) 20 meq PO TID supplement 01/23/22 [History Last Taken 06/20/22] gabapentin 300 mg capsule 300 mg PO TID nerve pain 04/02/22 [History Last Taken 06/20/22] magnesium oxide 400 mg (241.3 mg magnesium) tablet 400 mg PO BID supplement 04/02/22 [History Last Taken 06/19/22] clonidine HCl 0.2 mg tablet 0.2 mg PO DAILY HEART 06/20/22 [History Last Taken 06/20/22] diclofenac potassium 50 mg tablet 50 mg PO TID PRN Pain 06/20/22 [History Last Taken 06/20/22] furosemide 40 mg tablet 40 mg PO DAILY FLUID 06/20/22 [History Last Taken 06/20/22] pantoprazole 20 mg tablet,delayed release 20 mg PO DAILY GERD 06/20/22 [History Last Taken 06/20/22] pentoxifylline 400 mg tablet,extended release 400 mg PO DAILY LIVER 06/20/22 [History Last Taken 06/20/22] Allergy/AdvReac Type Severity Reaction Status Date / Time bee venom protein (honey bee) Allergy Swelling Verified 06/20/22 09:58 Family History Father Hypertension Mother Hypertension Surgical History Gastric bypass status for obesity History of total knee arthroplasty Previous back surgery Social History household members: spouse housing: house Smoking Status: Former smoker alcohol intake: current substance use type: does not use ROS ROS Narrative unable to obtain Physical Exam Narrative Const: On vent. No apparent distress Cardio: S1, S2 rate controlled Respiratory: No audible wheezing. Diminished breath sounds. : Indwelling [place] Fuente with scant yellow urine in bag GI: Positive bowel sounds Extremities: Generalized edema noted bilateral lower legs, feet, arms and hands Lab / Micro Data Result Diagrams: 06/24/22 03:10 06/24/22 16:30 Labs: Laboratory Results - last 24 hr 06/23/22 13:40: Vancomycin Trough 22.7 H 06/24/22 03:10: WBC 19.1 H, RBC 3.37 L, Hgb 8.6 L, Hct 27.1 L, MCV 80.4 L, MCH 25.5 L, MCHC 31.7 L, RDW Std Deviation 65.6 H, RDW Coeff of Arnold 23.5 H, Plt Count 39 L*, MPV TNP, Neut % (Auto) Not Reportable, Absolute Neuts (auto) 16.6 H, Absolute Lymphs (auto) 0.96, Total Counted 100, Neutrophils % (Manual) 80 H, Band Neutrophils % 7 H, Lymphocytes % (Manual) 5 L, Monocytes % (Manual) 4, Metamyelocytes % 3 H, Myelocytes % 1 H, Diff Path Review December, Platelet Estimate MKD DEC, Hypochromasia 2+, Anisocytosis 1+, Microcytosis 1+ 06/24/22 03:10: Sodium 143, Potassium 4.9, Chloride 110 H, Carbon Dioxide 27.0, Anion Gap 6, BUN 119 H*, Creatinine 2.63 H, Estim Creat Clear Calc 23.52, Est GFR (MDRD) Af Amer 24 L, Est GFR (MDRD) Non-Af 20 L, BUN/Creatinine Ratio 45.2 H, Glucose 137 H, Calcium 7.2 L 06/24/22 03:10: Total Bilirubin 9.80 H, Direct Bilirubin 8.26 H, AST 218 H, ALT 72 H, Alkaline Phosphatase 88, Total Protein 5.4 L, Albumin 1.4 L, Globulin 4.0 06/24/22 03:10: Uric Acid 12.8 H, Total Creatine Kinase 167 Micro: Microbiology 06/21/22 14:00 Urine Catheter - [place] Fuente Urine Culture - Final Escherichia coli Staphylococcus aureus 06/21/22 11:35 Blood Culture (Wb) - Other Blood Culture - Final Staphylococcus aureus 06/21/22 09:39 Sputum, Induced/Lukens Gram Stain - Final 06/21/22 09:39 Sputum, Induced/Lukens Respiratory Culture - Final Staphylococcus aureus Escherichia coli 06/21/22 11:35 Blood Culture (Wb) - Other Blood Culture - Final Staphylococcus aureus Radiology Impression Venous Doppler Study 06/20/22 17:11 Interpretation Summary Deep veins of the right lower extremity are patent and compressible segmentally. There is no evidence of right lower extremity deep vein thrombosis. The right great saphenous vein appears patent and compressible segmentally. Ordering Physician: Mona Deluna Referring Physician: Fritz Villatoro Performed By: Tracee Hernandez RVT Abdomen/Pelvis CT 06/24/22 10:24 IMPRESSION: Alveolar opacities in the lung bases with multiple small cavitary nodules, concerning for pneumonia and possible septic emboli. Recommend follow-up to exclude pulmonary metastases. Gastric postoperative changes with nasogastric tube tip in the proximal duodenum. Fluid distention of small bowel compatible with enteritis and ileus. Gaseous and fluid distention and dilatation of the proximal to mid colon, likely colonic pseudoobstruction/colonic ileus. Hepatic steatosis. Mild ascites. Mild stranding adjacent to the left psoas muscle from mild retroperitoneal edema or hemorrhage. Electronically Signed: Cecilia Snider MD at 12:27 EST , Documented by User: Dr. Paty Negrete MD 06/24/22 17:57 Assessment & Plan Assessment/Plan (1) Cardiopulmonary arrest with successful resuscitation: (2) Septic shock: (3) CHEN (acute kidney injury): (4) GI bleed: HPI Consult Data Date of Consult: 06/24/22 [facility] Medical History Acute post-gastric reduction surgery (APGARS) neuropathy Former smoker Hepatitis Hyperlipidemia Hypertension Lactic acidosis Liver failure TGA (transient global amnesia) TIA (transient ischemic attack) Home Medications fluoxetine 10 mg capsule 10 mg PO PRN PRN depression 01/19/21 [History Last Taken 06/20/22] potassium chloride 20 mEq tablet,extended release(part/cryst) (Klor-Con M) 20 meq PO TID supplement 01/23/22 [History Last Taken 06/20/22] gabapentin 300 mg capsule 300 mg PO TID nerve pain 04/02/22 [History Last Taken 06/20/22] magnesium oxide 400 mg (241.3 mg magnesium) tablet 400 mg PO BID supplement 04/02/22 [History Last Taken 06/19/22] clonidine HCl 0.2 mg tablet 0.2 mg PO DAILY HEART 06/20/22 [History Last Taken 06/20/22] diclofenac potassium 50 mg tablet 50 mg PO TID PRN Pain 06/20/22 [History Last Taken 06/20/22] furosemide 40 mg tablet 40 mg PO DAILY FLUID 06/20/22 [History Last Taken 06/20/22] pantoprazole 20 mg tablet,delayed release 20 mg PO DAILY GERD 06/20/22 [History Last Taken 06/20/22] pentoxifylline 400 mg tablet,extended release 400 mg PO DAILY LIVER 06/20/22 [History Last Taken 06/20/22] Allergy/AdvReac Type Severity Reaction Status Date / Time bee venom protein (honey bee) Allergy Swelling Verified 06/20/22 09:58 Family History Father Hypertension Mother Hypertension Surgical History Gastric bypass status for obesity History of total knee arthroplasty Previous back surgery Social History household members: spouse housing: house Smoking Status: Former smoker alcohol intake: current substance use type: does not use Lab / Micro Data Result Diagrams: 06/24/22 03:10 06/24/22 16:30
--- NOTE | 2022-06-24 15:04 | NURSING ---
Gricelda at bedside for dialysis line placement
[2022-06-24] MEDS: Heparin 10,000 UNITS/10 ML Vial 1000 UNITS IV (15:37)
--- NOTE | 2022-06-24 15:40 | RAD_ITS ---
EXAM: XR CHEST, 1 VIEW CLINICAL INDICATION: dialysis cath placed TECHNIQUE: Frontal view of the chest. This report was created using brick&mobile report generation technology. COMPARISON: XR Chest dated 06/23/2022 FINDINGS: LUNGS AND PLEURAL SPACES: Bilateral pulmonary opacities again noted. Improving left lower lobe atelectasis. Small left pleural effusion. No pneumothorax. HEART: Normal heart size. MEDIASTINUM: No mediastinal or hilar mass. BONES/JOINTS: No acute abnormality. SOFT TISSUES: Normal. TUBES, LINES AND DEVICES: The endotracheal tube (ETT) is in satisfactory position. Left internal jugular central venous catheter tip in the proximal superior vena cava. Enteric tube tip in the stomach. RAD/CXR for Line Placement IMPRESSION: Bilateral pneumonia. Improving left lower lobe atelectasis. Electronically Signed: Dnotae Golsdtein MD at 15:51 EST Reading Location ID and State: [facility] / [place] Tel , Service support ,
--- NOTE | 2022-06-24 16:25 | PCM.OP.BLANK ---
Operative Report Date of Procedure: 06/24/22 Temporary Dialysis Catheter placement procedure note Indication: Hemodialysis Procedure: A time-out was completed to verify correct patient, indication, medication allergies, procedure, coagulation studies, informed consent signed, and equipment needed. The patient was placed in the supine position for a central line placement to the rt IJ vein. The patients rt neck was prepped using chlorhexidine and a full body sterile drape was applied. 1% lidocaine was used to anesthetize the surrounding skin. A 12fr 16 cm temporary hemodialysis catheter introduced into the internal jugular vein using the modified Seldinger technique with the assistance of ultrasound. The site was dilated up twice in a step sadler fashion. The catheter was threaded smoothly over the guidewire, the guidewire was removed easily, nonpulsatile blood returned. All ports were aspirated of air and flushed with sterile saline and locked with 1.3 ml U1,000 Heparin. The catheter was sutured in place and covered with an occlusive dressing impregnated with chlorhexidine. Post-procedure: The patient tolerated the procedure well. Vital signs remained stable. EBL 5 cc. No complications. Chest X Ray ordered and confirmed tip placement in the SVC/RA junction and the absence of pneumothorax. Procedures Hospitalists Procedures: 78675 Insert Non-tunnel CV Cath
[2022-06-24 17:23] LABS: Anion Gap 6 (5-15); BUN 140 mg/dL (7-18); BUN/Creat Ratio 48.4 RATIO (10-20); Calcium,Total 7.5 mg/dL (8.5-10.1); Chloride 111 mmol/L (98-107); Creatinine, Serum 2.89 mg/dL (0.55-1.02); EST Glomerular Filtration Rate 18 mL/min (>60); Est Glom Filt Rate - Afr Amer 22 mL/min (>60); Glucose 132 mg/dL (74-106); Potassium 5.5 mmol/L (3.5-5.1); Sodium Level 144 mmol/L (136-145)
[2022-06-24] MEDS: Furosemide 100 MG/10 ML Vial IV (18:58)
[2022-06-24] MEDS: Senna/Docusate Sodium 1 Tablet 2 TABLET GT (21:41)
[2022-06-25] VITALS (66 sets, daily range): BP systolic 87–135; BP diastolic 46–68; PULSE 81–887; RESP 12–26; TEMP 36.4–38.1; O2SAT 90–98
[2022-06-25 03:47] LABS: Hemoglobin 7.9 g/dL (12.0-15.0); Mean Corp Hgb Conc 30.4 g/dL (32-36); Mean Corpuscular Hgb 25.2 pg (27.0-32.0); Mean Corpuscular Volume 83.1 fL (81-99); POSITIVE COUNT YES; POSITIVE MORPHOLOGY YES; RBC Distribution Width CV 23.9 % (11.6-14.6); RBC Distribution Width SD 68.6 fl (35.1-43.9); Red Blood Count 3.13 M/mm3 (4.2-5.4); White Blood Count 14.8 K/mm3 (4.4-11.0)
[2022-06-25 03:50] LABS: Differential Indicated MANUAL DIFF
[2022-06-25 03:51] LABS: Platelet Count 41 K/mm3 (150-450)
[2022-06-25 04:45] LABS: ALB/GLOB Ratio 0.4 RATIO (0.9-2.4); AST(SGOT) 143 U/L (15-37); Alanine Aminotransfer ALT/SGPT 58 U/L (13-56); Albumin, Serum 1.4 g/dL (3.2-5.0); Alkaline Phosphatase 92 U/L (45-117); Anion Gap 7 (5-15); BUN 141 mg/dL (7-18); BUN/Creat Ratio 46.7 RATIO (10-20); Calcium,Total 7.1 mg/dL (8.5-10.1); Chloride 109 mmol/L (98-107); Creatinine, Serum 3.02 mg/dL (0.55-1.02); EST Glomerular Filtration Rate 17 mL/min (>60); Est Glom Filt Rate - Afr Amer 20 mL/min (>60); Estimated Creatinine Clearance 20.48 ml/min; Glucose 148 mg/dL (74-106); Potassium 5.4 mmol/L (3.5-5.1); Protein, Total 5.4 g/dL (6.4-8.2); Sodium Level 143 mmol/L (136-145)
[2022-06-25 04:51] LABS: Total Cells Counted 100 (MANUAL DIFF)
[2022-06-25 04:54] LABS: Lymphocyte 8 % (19-41); Metamyelocyte 2 % (0-1); Monocyte 3 % (0-10); Myelocyte 1 % (0-0); Neutrophil-Band 7 % (0-5); Neutrophil-Segmented 79 % (47-70); Nucleated Red Bld Cells,Manual 2 % (0-5); Toxic Granulation RARE; Vacuolated Cells RARE
[2022-06-25 04:55] LABS: Anisocytosis 2+; Platelet Estimate MKD DEC (ADEQ)
[2022-06-25 04:56] LABS: Absolute Lymphocyte Count 1.19 X10^3/uL (0.83-4.51); Absolute Neutrophil Count 12.8 X10^3/uL (2.0-7.7); Hypochromasia 2+; Lymphocyte # 1.19 X10^3/ul (0.83-4.51); Macrocytosis RARE; Microcytosis 2+; Neutrophil # 12.75 X10^3/uL (2.7-7.7)
[2022-06-25] MEDS: Hydrocortisone Sod Succinate 100 MG/2 ML Vial 50 MG IV ×3 (06:19→16:56)
[2022-06-25] MEDS: Menthol/Lanolin/Calamine/Znox 113 GM Tube 1 APPLIC TOPICAL ×3 (06:19→21:23)
[2022-06-25] MEDS: 0.9% Saline Lock 10 ML Syringe IV (06:20)
[2022-06-25] MEDS: Ipratropium/Albuterol Sulfate 3 ML AMPUL.NEB INHALATION ×4 (07:05→19:06)
--- NOTE | 2022-06-25 07:14 | PN.CC_ITS ---
Assessment & Plan Assessment/Plan (1) Septic shock: PLAN: Plan RECOMMENDATIONS: 1. Continue assist-control mode mechanical ventilation. Wean FiO2 and PEEP to maintain saturations at or above 90%. 2. Continue empiric broad-spectrum antimicrobials. 3. Okay to use vasopressors if necessary to facilitate dialysis 4. Consult nephrology. Anticipate hemodialysis today 5. Continue stress dose steroids. 6. Spontaneous breathing and awakening trials per protocol 7. Continue PPI therapy as ordered. 8. Continue to monitor H&H and transfuse if hemoglobin drops below 7 g/dL. 9. Lactulose and rifaximin per GI recommendations. 10. Tube feeds per GI IMPRESSIONS: 1. Septic shock with multisystem organ failure The patient presented to the hospital with a number of vague musculoskeletal complaints. She ultimately suffered from a cardiac arrest on the morning of June 21 and was subsequently found to have staph bacteremia. The patient has went on to develop fulminant septic shock with multisystem organ failure requiring multiple vasopressors. Patient has been holding pressure on no Levophed for almost 24 hours. The patient will be continued on broad- spectrum antimicrobials. Cultures are showing both MSSA and E. coli. Echocardiogram shows elevated pulmonary artery pressures of 40 mmHg, but EF is preserved at 60%. She will be maintained on stress dose steroids, pending improvement in her hemodynamic status. Okay to transition to prednisolone if this will help her liver function. Defer to GI. 2. Acute combined respiratory failure The patient does have findings on plain film chest imaging concerning for underlying infection. However, she remains on empiric broad-spectrum antimicrobials. Sputum culture is currently pending. Continue assist-control mode mechanical ventilation. Wean FiO2 and PEEP to maintain oxygen saturations at or above 90%. Patient significantly volume positive. Will attempt volume removal with hemodialysis. Endotracheal tube is in appropriate position. 3. Acute kidney injury Likely prerenal/ischemic ATN in the setting of #1. Continue supportive measures as noted above. Creatinine has worsened. Continue to monitor urine output. Patient will require renal replacement therapy. Appreciate nephrology input. Patient does have significant elevation of BUN with decreased urine output. No significant metabolic acidosis is noted 4. History of alcoholic hepatitis/chronic alcohol dependency Complicates care, management, recovery and prognosis. Continue supportive care per GI recommendations. TIME: 37 minutes of critical care time, independent of procedures, was spent addressing the patient's septic shock with multisystem organ failure, acute combined respiratory failure, acute kidney injury, alcoholic hepatitis, review of all data and collaboration with the care team. Subjective Subjective Patient did okay from a hemodynamic standpoint overnight. Patient did have to go up on PEEP, but FiO2 is down to 55%. Patient has remained off of Levophed. Patient is in normal sinus rhythm. No bowel movement has been noted overnight. Patient continues to fight to keep eyes closed, but otherwise has not making many purposeful movements. Objective Data Objective Data Vital Signs: Vital Signs Temp Pulse Resp BP Pulse Ox O2 Del Method O2 Flow Rate 36.6 C 86 14 95/53 L 95 Mechanical Ventilator 4 06/25/22 07:00 06/25/22 07:00 06/25/22 07:00 06/25/22 07:00 06/25/22 07:00 06/25/22 07:00 06/21/22 09:00 FiO2 55 06/25/22 07:00 Oxygen Flow Rate (L/min) 4 Oxygen Delivery Method Mechanical Ventilator Weight: 122.1 kg Body Mass Index (BMI) 40.3 Intake & Output: Intake and Output for Last 24 Hours 06/23/22 06/24/22 06/25/22 23:59 23:59 23:59 Intake Total 1464.36 / 1520.66 900.12 / 900.12 280 / 280 Output Total 770 / 810 475 / 475 105 / 105 Balance 694.36 / 710.66 425.12 / 425.12 175 / 175 Lab / Micro Data Result Diagrams: 06/25/22 03:36 06/25/22 03:36 Labs: Laboratory Results - last 24 hr 06/24/22 03:10: Total Bilirubin 9.80 H, Direct Bilirubin 8.26 H, AST 218 H, ALT 72 H, Alkaline Phosphatase 88, Total Protein 5.4 L, Albumin 1.4 L, Globulin 4.0 06/24/22 03:10: Uric Acid 12.8 H, Total Creatine Kinase 167 06/24/22 16:30: Sodium 144, Potassium 5.5 H, Chloride 111 H, Carbon Dioxide 27.0, Anion Gap 6, BUN 140 H*, Creatinine 2.89 H, Estim Creat Clear Calc 21.40, Est GFR (MDRD) Af Amer 22 L, Est GFR (MDRD) Non-Af 18 L, BUN/Creatinine Ratio 48.4 H, Glucose 132 H, Calcium 7.5 L 06/25/22 03:36: Sodium 143, Potassium 5.4 H, Chloride 109 H, Carbon Dioxide 27.0, Anion Gap 7, BUN 141 H*, Creatinine 3.02 H, Estim Creat Clear Calc 20.48, Est GFR (MDRD) Af Amer 20 L, Est GFR (MDRD) Non-Af 17 L, BUN/Creatinine Ratio 46.7 H, Glucose 148 H, Calcium 7.1 L, Total Bilirubin 9.30 H, AST 143 H, ALT 58 H, Alkaline Phosphatase 92, Total Protein 5.4 L, Albumin 1.4 L, Globulin 4.0, Albumin/Globulin Ratio 0.4 L 06/25/22 03:36: WBC 14.8 H, RBC 3.13 L, Hgb 7.9 L, Hct 26.0 L, MCV 83.1, MCH 2 5.2 L, MCHC 30.4 L, RDW Std Deviation 68.6 H, RDW Coeff of Arnold 23.9 H, Plt Count 41 L*, MPV TNP, Neut % (Auto) Not Reportable, Absolute Neuts (auto) 12.8 H, Absolute Lymphs (auto) 1.19, Total Counted 100, Neutrophils % (Manual) 79 H, Band Neutrophils % 7 H, Lymphocytes % (Manual) 8 L, Monocytes % (Manual) 3, Metamyelocytes % 2 H, Myelocytes % 1 H, Nucleated RBCs/100 WBC 2, Diff Path Review May foll, Toxic Granulation RARE, Toxic Vacuolation RARE, Platelet Estimate MKD DEC, Hypochromasia 2+, Anisocytosis 2+, Microcytosis 2+, Macrocytosis RARE Micro: Microbiology 06/21/22 14:00 Urine Catheter - [place] Urine Culture - Final Escherichia coli Staphylococcus aureus 06/21/22 11:35 Blood Culture (Wb) - Other Blood Culture - Final Staphylococcus aureus 06/21/22 09:39 Sputum, Induced/Lukens Gram Stain - Final 06/21/22 09:39 Sputum, Induced/Lukens Respiratory Culture - Final Staphylococcus aureus Escherichia coli 06/21/22 11:35 Blood Culture (Wb) - Other Blood Culture - Final Staphylococcus aureus 06/21/22 15:43 Nasal Secretion SARS-CoV-2 Antigen (Rapid) - Final 06/21/22 14:00 Urine Catheter - Catheter Streptococcus pneumoniae Antigen (M - Final 06/21/22 14:00 Urine Catheter - [place] Fuente Legionella Antigen - Final 06/21/22 10:03 Mucosa - Nose - Final Radiography Diagnostic Testing: Radiology Impression Abdomen/Pelvis CT 06/24/22 10:24 IMPRESSION: Alveolar opacities in the lung bases with multiple small cavitary nodules, concerning for pneumonia and possible septic emboli. Recommend follow-up to exclude pulmonary metastases. Gastric postoperative changes with nasogastric tube tip in the proximal duodenum. Fluid distention of small bowel compatible with enteritis and ileus. Gaseous and fluid distention and dilatation of the proximal to mid colon, likely colonic pseudoobstruction/colonic ileus. Hepatic steatosis. Mild ascites. Mild stranding adjacent to the left psoas muscle from mild retroperitoneal edema or hemorrhage. Electronically Signed: Cecilia Snider MD at 12:27 EST , Chest X-Ray 06/24/22 15:40 IMPRESSION: Bilateral pneumonia. Improving left lower lobe atelectasis. Electronically Signed: Dontae Goldstein MD at 15:51 EST , Physical Exam Const Constitutional Narrative: The patient is quite ill and toxic in appearance. She is intubated, sedated and mechanically ventilated. Anasarca noted General Appearance: patient mechanically ventilated HEENT normocephalic and head/scalp atraumatic HEENT Narrative: Right IJ dialysis catheter is clean, dry and intact Eyes PERRL and EOMs intact bilaterally Sclera: sclera abnormal Positive for bilateral Details: scleral injection and other (Icterus noted) Neck supple General: trachea midline Chest inspection of chest normal Resp Resp Narrative: Coarse mechanical breath sounds bilaterally, worse on the right. Breathing over the vent Auscultation: rhonchi and diminished lung sounds; Negative for rales or wheezes Cardio regular rate, regular rhythm, S1 normal heart sound, S2 normal heart sound and no murmurs GI normal to inspection, nondistended, normoactive bowel sounds Inspection: anasarca present and abdominal distention Auscultation: normoactive bowel sounds Extremity no clubbing, cyanosis or edema General Extremity: edema Skin no rashes or lesions noted Skin Narrative: Punctate skin wounds noted without surrounding erythema Neuro Sensorium / Orientation: sedated on vent Psych Activity / Motor Behavior: restless Mood & Affect: flat affect Charges/Coding Procedures Hospitalists Procedures: [id number] Critial Care 1st Hr
--- NOTE | 2022-06-25 07:28 | PCM.PN.HOSP ---
Subjective Subjective Follow-up on septic shock/acute cardiopulmonary arrest/acute GI bleed: Patient was seen and examined.?Patient started on dialysis; seen on dialysis. Restarted on pressors. Objective Data Objective Data Vital Signs: Vital Signs Temp Pulse Resp BP Pulse Ox O2 Del Method O2 Flow Rate 97.8 F 83 14 95/53 L 96 Mechanical Ventilator 4 06/25/22 07:00 06/25/22 07:05 06/25/22 07:05 06/25/22 07:00 06/25/22 07:05 06/25/22 07:00 06/21/22 09:00 FiO2 55 06/25/22 07:05 Oxygen Flow Rate (L/min) 4 Oxygen Delivery Method Mechanical Ventilator Weight: 122.1 kg Body Mass Index (BMI) 40.3 Intake & Output: Intake and Output for Last 24 Hours 06/23/22 06/24/22 06/25/22 23:59 23:59 23:59 Intake Total 1464.36 / 1520.66 900.12 / 900.12 280 / 280 Output Total 770 / 810 475 / 475 105 / 105 Balance 694.36 / 710.66 425.12 / 425.12 175 / 175 Lab / Micro Data Result Diagrams: 06/25/22 03:36 06/25/22 03:36 Labs: Laboratory Results - last 24 hr 06/24/22 03:10: Total Bilirubin 9.80 H, Direct Bilirubin 8.26 H, AST 218 H, ALT 72 H, Alkaline Phosphatase 88, Total Protein 5.4 L, Albumin 1.4 L, Globulin 4.0 06/24/22 03:10: Uric Acid 12.8 H, Total Creatine Kinase 167 06/24/22 16:30: Sodium 144, Potassium 5.5 H, Chloride 111 H, Carbon Dioxide 27.0, Anion Gap 6, BUN 140 H*, Creatinine 2.89 H, Estim Creat Clear Calc 21.40, Est GFR (MDRD) Af Amer 22 L, Est GFR (MDRD) Non-Af 18 L, BUN/Creatinine Ratio 48.4 H, Glucose 132 H, Calcium 7.5 L 06/25/22 03:36: Sodium 143, Potassium 5.4 H, Chloride 109 H, Carbon Dioxide 27.0, Anion Gap 7, BUN 141 H*, Creatinine 3.02 H, Estim Creat Clear Calc 20.48, Est GFR (MDRD) Af Amer 20 L, Est GFR (MDRD) Non-Af 17 L, BUN/Creatinine Ratio 46.7 H, Glucose 148 H, Calcium 7.1 L, Total Bilirubin 9.30 H, AST 143 H, ALT 58 H, Alkaline Phosphatase 92, Total Protein 5.4 L, Albumin 1.4 L, Globulin 4.0, Albumin/Globulin Ratio 0.4 L 06/25/22 03:36: WBC 14.8 H, RBC 3.13 L, Hgb 7.9 L, Hct 26.0 L, MCV 83.1, MCH 25.2 L, MCHC 30.4 L, RDW Std Deviation 68.6 H, RDW Coeff of Arnold 23.9 H, Plt Count 41 L*, MPV TNP, Neut % (Auto) Not Reportable, Absolute Neuts (auto) 12.8 H, Absolute Lymphs (auto) 1.19, Total Counted 100, Neutrophils % (Manual) 79 H, Band Neutrophils % 7 H, Lymphocytes % (Manual) 8 L, Monocytes % (Manual) 3, Metamyelocytes % 2 H, Myelocytes % 1 H, Nucleated RBCs/100 WBC 2, Diff Path Review May foll, Toxic Granulation RARE, Toxic Vacuolation RARE, Platelet Estimate MKD DEC, Hypochromasia 2+, Anisocytosis 2+, Microcytosis 2+, Macrocytosis RARE Micro: Microbiology 06/21/22 14:00 Urine Catheter - [place]ente Urine Culture - Final Escherichia coli Staphylococcus aureus 06/21/22 11:35 Blood Culture (Wb) - Other Blood Culture - Final Staphylococcus aureus 06/21/22 09:39 Sputum, Induced/Lukens Gram Stain - Final 06/21/22 09:39 Sputum, Induced/Lukens Respiratory Culture - Final Staphylococcus aureus Escherichia coli 06/21/22 11:35 Blood Culture (Wb) - Other Blood Culture - Final Staphylococcus aureus 06/21/22 15:43 Nasal Secretion SARS-CoV-2 Antigen (Rapid) - Final 06/21/22 14:00 Urine Catheter - Catheter Streptococcus pneumoniae Antigen (M - Final 06/21/22 14:00 Urine Catheter - [place] Legionella Antigen - Final 06/21/22 10:03 Mucosa - Nose - Final Radiography Diagnostic Testing: Radiology Impression Abdomen/Pelvis CT 06/24/22 10:24 IMPRESSION: Alveolar opacities in the lung bases with multiple small cavitary nodules, concerning for pneumonia and possible septic emboli. Recommend follow-up to exclude pulmonary metastases. Gastric postoperative changes with nasogastric tube tip in the proximal duodenum. Fluid distention of small bowel compatible with enteritis and ileus. Gaseous and fluid distention and dilatation of the proximal to mid colon, likely colonic pseudoobstruction/colonic ileus. Hepatic steatosis. Mild ascites. Mild stranding adjacent to the left psoas muscle from mild retroperitoneal edema or hemorrhage. Electronically Signed: Cecilia Snider MD at 12:27 EST , Chest X-Ray 06/24/22 15:40 IMPRESSION: Bilateral pneumonia. Improving left lower lobe atelectasis. Electronically Signed: Dontae Goldstein MD at 15:51 EST , Physical Exam Narrative Physical exam: General: Sedated, intubated, on mechanical ventilator, anasarca HEENT: Atraumatic, ETT and OG tube in situ Oral: Moist Mucosa Neck: Supple Lungs: Diminished to auscultation Cardiovascular: HS I+II, regular, no murmurs Abdomen: Bowel Sounds Present, Soft, Non Tender Extremities:Bilateral pedal edema +1 Skin: No rashes, No breakdown Neurological: Grossly intact Psych/Mental Status: Appropriate Assessment & Plan Assessment/Plan (1) Cardiopulmonary arrest with successful resuscitation: (2) Septic shock: PLAN: Plan 1. Septic shock likely secondary to staph aureus bacteremia/E. coli/staph aureus UTI, persistent Patient restarted back on pressors this morning Urine cultures growing E. coli and staph aureus. Blood cultures growing MSSA Continue on pressors, cefazolin, hydrocortisone 2. CHEN, likely prerenal from #1, worsening kidney function, likely a component of hepatorenal also BUN increased to 141 and Cr 3.02. Urine output is oliguric Patient started on dialysis today 3. Acute GI bleed secondary to 2 gastric ulcers, s/p EGD on 06/24/22, Status post clipping over visible vessels Continue on octreotide, IV PPI BID 4. Anemia, acute blood loss, secondary to #3, s/p 2 units pRBCs Hb is 8.6, will continue to monitor 5. Acute hypoxic respiratory failure secondary to acute cardiopulmonary arrest Remains on mechanical ventilator; automobile drivers following 5. Acute cardiopulmonary arrest, likely multifactorial, will continue to monitor. 6. Acute combined respiratory metabolic acidosis, improved 7. Acute transaminitis, worsening GI following, continue rifaximin, will trend LFTs in am 8. Hypokalemia,now mildly hyperkalemic, started on dialysis 9. Thrombocytopenia, acute on chronic, likely secondary to alcohol use We will trend 10. Hepatic steatosis secondary to chronic alcohol use, continue lactulose, rifaximin GI following 11. DVT PPx- SCDS Charges/Coding Visit Charges Inpatient E&M: 79818 Subs Hosp L3
[2022-06-25 08:54] LABS: Pathologist Review Reviewed
[2022-06-25 08:54] LABS: Pathologist Review Reviewed
[2022-06-25 08:55] LABS: Pathologist Review Reviewed
[2022-06-25 09:12] LABS: Pathologist Review Reviewed
[2022-06-25 09:38] LABS: Pathologist Review Reviewed
[2022-06-25] MEDS: Chlorhexidine 15 ML PO ×2 (10:27→21:23)
--- NOTE | 2022-06-25 11:04 | DIALYSIS ---
Hemodialysis complete via RIJ temporary dialysis CVC. Ran even d/t requiring levophed during treatment.
[2022-06-25 11:18] LABS: Hepatitis B Surface Antibody Non-Reactive; Hepatitis B Surface Antigen Non-Reactive (Nonreactive)
[2022-06-25] MEDS: Lactulose 20 GM/30 ML UDC GT ×2 (11:32→21:22)
[2022-06-25] MEDS: Senna/Docusate Sodium 1 Tablet 2 TABLET GT ×2 (11:33→21:24)
[2022-06-25] MEDS: rifAXIMin 550 MG Tablet GT ×2 (11:34→21:25)
[2022-06-25] MEDS: Polyethylene Glycol 3350 17 GM PACKET GT ×2 (11:34→21:22)
[2022-06-25] MEDS: Heparin 10,000 UNITS/10 ML Vial IV (11:46)
[2022-06-25 13:20] LABS: Pathologist Review Reviewed
--- NOTE | 2022-06-25 13:44 | PN.RENAL_ITS ---
Subjective Subjective Following for dialysis requiring CHEN On vent. No apparent distress Objective Data Objective Data Vital Signs: Vital Signs Temp Pulse Resp BP Pulse Ox O2 Del Method O2 Flow Rate 98.8 F 96 16 98/50 L 95 Mechanical Ventilator 4 06/25/22 12:00 06/25/22 12:00 06/25/22 12:00 06/25/22 13:15 06/25/22 12:00 06/25/22 12:00 06/21/22 09:00 FiO2 50 06/25/22 12:00 Oxygen Flow Rate (L/min) 4 Oxygen Delivery Method Mechanical Ventilator Weight: 122.1 kg Body Mass Index (BMI) 40.3 Intake & Output: Intake and Output for Last 24 Hours 06/23/22 06/24/22 06/25/22 23:59 23:59 23:59 Intake Total 1464.36 / 1520.66 900.12 / 900.12 1116.93 / 1116.93 Output Total 770 / 810 475 / 475 149 / 149 Balance 694.36 / 710.66 425.12 / 425.12 967.93 / 967.93 Lab / Micro Data Result Diagrams: 06/25/22 03:36 06/25/22 03:36 Labs: Laboratory Results - last 24 hr 06/21/22 06:31: Diff Path Review Reviewed 06/21/22 13:25: Diff Path Review Reviewed 06/22/22 03:35: Diff Path Review Reviewed 06/23/22 03:40: Diff Path Review Reviewed 06/24/22 03:10: Diff Path Review Reviewed 06/24/22 16:30: Sodium 144, Potassium 5.5 H, Chloride 111 H, Carbon Dioxide 27.0, Anion Gap 6, BUN 140 H*, Creatinine 2.89 H, Estim Creat Clear Calc 21.40, Est GFR (MDRD) Af Amer 22 L, Est GFR (MDRD) Non-Af 18 L, BUN/Creatinine Ratio 48.4 H, Glucose 132 H, Calcium 7.5 L 06/25/22 03:36: Sodium 143, Potassium 5.4 H, Chloride 109 H, Carbon Dioxide 27.0, Anion Gap 7, BUN 141 H*, Creatinine 3.02 H, Estim Creat Clear Calc 20.48, Est GFR (MDRD) Af Amer 20 L, Est GFR (MDRD) Non-Af 17 L, BUN/Creatinine Ratio 46.7 H, Glucose 148 H, Calcium 7.1 L, Total Bilirubin 9.30 H, AST 143 H, ALT 58 H, Alkaline Phosphatase 92, Total Protein 5.4 L, Albumin 1.4 L, Globulin 4.0, Albumin/Globulin Ratio 0.4 L 06/25/22 03:36: WBC 14.8 H, RBC 3.13 L, Hgb 7.9 L, Hct 26.0 L, MCV 83.1, MCH 25.2 L, MCHC 30.4 L, RDW Std Deviation 68.6 H, RDW Coeff of Arnold 23.9 H, Plt Count 41 L*, MPV TNP, Neut % (Auto) Not Reportable, Absolute Neuts (auto) 12.8 H , Absolute Lymphs (auto) 1.19, Total Counted 100, Neutrophils % (Manual) 79 H, Band Neutrophils % 7 H, Lymphocytes % (Manual) 8 L, Monocytes % (Manual) 3, Metamyelocytes % 2 H, Myelocytes % 1 H, Nucleated RBCs/100 WBC 2, Diff Path Review Reviewed, Toxic Granulation RARE, Toxic Vacuolation RARE, Platelet Estimate MKD DEC, Hypochromasia 2+, Anisocytosis 2+, Microcytosis 2+, Macrocytosis RARE 06/25/22 10:34: Hep Bs Antigen Non-Reactive, Hep Bs Antibody Non-Reactive Micro: Microbiology 06/21/22 14:00 Urine Catheter - [place] Urine Culture - Final Escherichia coli Staphylococcus aureus 06/21/22 11:35 Blood Culture (Wb) - Other Blood Culture - Final Staphylococcus aureus 06/21/22 09:39 Sputum, Induced/Lukens Gram Stain - Final 06/21/22 09:39 Sputum, Induced/Lukens Respiratory Culture - Final Staphylococcus aureus Escherichia coli 06/21/22 11:35 Blood Culture (Wb) - Other Blood Culture - Final Staphylococcus aureus 06/21/22 15:43 Nasal Secretion SARS-CoV-2 Antigen (Rapid) - Final 06/21/22 14:00 Urine Catheter - Catheter Streptococcus pneumoniae Antigen (M - Final 06/21/22 14:00 Urine Catheter - [place] Legionella Antigen - Final 06/21/22 10:03 Mucosa - Nose - Final Radiography Diagnostic Testing: Radiology Impression Chest X-Ray 06/24/22 15:40 IMPRESSION: Bilateral pneumonia. Improving left lower lobe atelectasis. Electronically Signed: Dontae Goldstein MD at 15:51 EST , Physical Exam Narrative Const: On vent. No apparent distress Cardio: S1, S2 rate controlled Respiratory: No audible wheezing. Diminished breath sounds. : Indwelling De La Fuente with scant yellow urine in bag GI: Positive bowel sounds Extremities: Generalized edema noted bilateral lower legs, feet, arms and hands Nontunneled temporary right IJ HD catheter dressing clean, dry and intact Assessment & Plan Assessment/Plan (1) Cardiopulmonary arrest with successful resuscitation: (2) Septic shock: (3) CHEN (acute kidney injury): (4) GI bleed: PLAN: Plan - Initially nonoliguric CHEN likely pre-renal from septic shock (staff aureus oleksandr teremia and E. coli/staph aureus UTI), cardiopulmonary arrest with decreased renal perfusion which has likely evolved to ATN. Patient has normal baseline creatinine. Serum creatinine 1.79 mg/dL on admission (06/10). Serum creatinine 2.63 mg/dL and BUN 141 today. Urine output declined, patient becoming hypervolemic and had poor response to multiple doses of IV Lasix. Patient had temporary HD catheter placed 06/25. First HD today with no UF over 2.5 hours on 2K dialysate. UOP only 150ml so far today -Blood pressures had improved yesterday and patient was off pressors for about 12 hours. Back on Levophed at 5mcg. -We will hold off on dialysis tomorrow. Reevaluate for dialysis needs on Thursday unless acute need for dialysis arises. Continue to monitor for renal recovery. -Off potassium supplements -GI is following patient for elevated liver enzymes, alcohol hepatitis/thrombocytopenia/hepatomegaly. She did have Upper GI with findings of oozing gastric ulcers s/p clipping. She is on PPI gtt, lactulose, Rifaximin -On antibiotics, cefazolin.
--- NOTE | 2022-06-25 13:50 | PCM.PN.ID ---
Physical Exam Narrative On vent, on pressor, no fever Const no apparent distress Resp Effort and Inspection: mechanically ventilated Auscultation: rhonchi Cardio regular rate and regular rhythm GI soft to palpation, non-tender and non-distended Skin no rashes or lesions noted ID ID: Route of nutrition/ use of supplements: [] Nutritional Intake: [] IV Site: [] De La Fuente Catheter: [] Assessment & Plan Assessment/Plan (1) MSSA bacteremia: PLAN: septic shock due to mssa bacteremia - Ucx and sputum cx with ecoli and mssa. Wbc and BP improved. Fever resolved. TTE showed no veg. No sign of metastatic infection on exam. Will check repeat bcx. CT showed mild ascites, possible septic emboli to lungs. 06/24 narrowed vanc/cefepime to cefazolin. Consider SHARON, otherwise will plan on treating for 6 weeks with iv abx. Will follow (2) GI bleed: (3) Septic shock: (4) Cardiopulmonary arrest with successful resuscitation: (5) Alcoholic hepatitis:
[2022-06-25] MEDS: Cefazolin 1 GM/50 ML BAG IV (16:49)
[2022-06-25] MEDS: Vital AF 1.2 Cal Liquid 1,000 ML 20 ML GT (16:55)
[2022-06-26] VITALS (44 sets, daily range): BP systolic 90–149; BP diastolic 34–81; PULSE 76–194; RESP 12–22; TEMP 37.7–38.8; O2SAT 85–98
[2022-06-26] MEDS: Hydrocortisone Sod Succinate 100 MG/2 ML Vial 50 MG IV ×4 (01:30→19:35)
[2022-06-26] MEDS: 0.9% Saline Lock 10 ML Syringe IV ×3 (02:03→19:36)
[2022-06-26] MEDS: Acetaminophen 650 MG/20 ML UDC GT ×3 (02:16→17:07)
[2022-06-26] MEDS: CHLORHEXIDINE GLUC 2% CLOTH 1 EACH TOWELETTE TOPICAL (02:53)
[2022-06-26 04:08] LABS: Hematocrit 27.7 % (37-47); Hemoglobin 8.6 g/dL (12.0-15.0); Mean Corpuscular Hgb 25.1 pg (27.0-32.0); POSITIVE COUNT YES; POSITIVE DIFFERENTIAL YES; POSITIVE MORPHOLOGY YES; Platelet Count 95 K/mm3 (150-450); RBC Distribution Width CV 24.1 % (11.6-14.6); RBC Distribution Width SD 67.7 fl (35.1-43.9); Red Blood Count 3.42 M/mm3 (4.2-5.4)
[2022-06-26 04:10] LABS: Differential Indicated MANUAL DIFF
[2022-06-26 05:11] LABS: ALB/GLOB Ratio 0.3 RATIO (0.9-2.4); AST(SGOT) 202 U/L (15-37); Alanine Aminotransfer ALT/SGPT 49 U/L (13-56); Albumin, Serum 1.5 g/dL (3.2-5.0); Alkaline Phosphatase 225 U/L (45-117); Anion Gap 7 (5-15); BUN 110 mg/dL (7-18); BUN/Creat Ratio 38.2 RATIO (10-20); Calcium,Total 7.6 mg/dL (8.5-10.1); Chloride 104 mmol/L (98-107); Creatinine, Serum 2.88 mg/dL (0.55-1.02); EST Glomerular Filtration Rate 18 mL/min (>60); Est Glom Filt Rate - Afr Amer 22 mL/min (>60); Estimated Creatinine Clearance 21.48 ml/min; Globulin 4.5 g/dL (2.2-4.2); Glucose 134 mg/dL (74-106); Potassium 5.3 mmol/L (3.5-5.1); Sodium Level 139 mmol/L (136-145)
[2022-06-26 05:21] LABS: Corrected WBC 23.5 K/mm3 (4.4-11.0); Lymphocyte 4 % (19-41); Metamyelocyte 1 % (0-1); Monocyte 1 % (0-10); Myelocyte 6 % (0-0); Neutrophil-Band 7 % (0-5); Neutrophil-Segmented 80 % (47-70); Nucleated Red Bld Cells,Manual 10 % (0-5); Promyelocyte 1 % (0-0); Total Cells Counted 100 (MANUAL DIFF)
[2022-06-26 05:22] LABS: Platelet Estimate SLT DEC (ADEQ)
[2022-06-26 05:23] LABS: Absolute Neutrophil Count 22.5 X10^3/uL (2.0-7.7); Anisocytosis 1+; Hypochromasia 2+; Microcytosis 1+; Toxic Granulation RARE
[2022-06-26 05:24] LABS: Absolute Lymphocyte Count 1.04 X10^3/uL (0.83-4.51); Lymphocyte # 1.04 X10^3/ul (0.83-4.51)
--- NOTE | 2022-06-26 05:40 | RAD_ITS ---
We are attempting to reach an attending provider to discuss findings. An addendum with communication details will be sent when the communication is complete. EXAM: XR CHEST, 1 VIEW CLINICAL INDICATION: Hypoxia TECHNIQUE: Frontal view of the chest. This report was created using BTR report generation technology. COMPARISON: Previous chest radiograph of 06/24/2022. FINDINGS: LUNGS AND PLEURAL SPACES: Interstitial and patchy alveolar infiltrates are noted within the right lung, with mild increase in airspace disease within the right lung base laterally. There is worsening dense consolidation within the retrocardiac portion of the left lower lobe, with development of silhouetting of the left hemidiaphragm. Mild stable patchy airspace disease noted within the left mid to upper lung. Small pleural effusions are suspected. The costophrenic angles. No pneumothorax is noted. HEART: Mild-moderate cardiomegaly is present. Cephalization of pulmonary blood flow is noted. MEDIASTINUM: Central airways and mediastinal contour are unremarkable. BONES/JOINTS: No acute osseous abnormality. SOFT TISSUES: Mid-abdominal surgical clips. TUBES, LINES AND DEVICES: ET tube has been advanced and its tip now lies at the level of the yoanna, pointing toward the origin of the left mainstem bronchus; the ET tube should be withdrawn by 2-3 cm for more optimal positioning. NG tube remains in place extending into the stomach; distal tip of the NG tube is not included on the submitted portable chest radiograph. Positioning of the right jugular venous catheter and right-sided PICC line are unchanged. pump and still operator leads overlie the chest wall. RAD/Chest 1 View (Portable) IMPRESSION: Tip of the ET tube is now projected near the origin of the left mainstem bronchus, and should be withdrawn about 2-3 cm for more optimal positioning. Nonstandard communication protocol initiated. Worsening infiltrates at the lung bases, left greater than right, most likely due to worsening pneumonia and atelectasis, though a component of pulmonary edema could also be present. Electronically Signed: Vahe Bejarano MD at 6:02 EST ,
[2022-06-26] MEDS: Menthol/Lanolin/Calamine/Znox 113 GM Tube 1 APPLIC TOPICAL ×3 (05:55→22:14)
[2022-06-26 06:05] LABS: Magnesium 2.6 mg/dL (1.6-2.6); Phosphorus 3.1 mg/dL (2.5-4.9)
--- NOTE | 2022-06-26 06:12 | EKG12_ITS ---
Test Reason : CONVERTED TO SR Blood Pressure : / mmHG Vent. Rate : 076 BPM Atrial Rate : 076 BPM P-R Int : 148 ms QRS Dur : 094 ms QT Int : 330 ms P-R-T Axes : -22 -09 048 degrees QTc Int : 371 ms Normal sinus rhythm Normal ECG When compared with ECG of 26-JUN-2022 06:12, MANUAL COMPARISON REQUIRED, DATA IS UNCONFIRMED Confirmed by CHAPO GÓMEZ, CLARICE ([id number]), electronic news gathering editor SILVESTRE COLLINS ([id number]) on 06/30/2022 11:34:39 AM Referred By: Maurice MORFIN Confirmed By:CLARICE COWAN MD
[2022-06-26] MEDS: Amiodarone 360 MG in Dextrose 5% Viaflo Bag 192.8 ML 33.3 MG CONT INF (06:45)
--- NOTE | 2022-06-26 07:14 | PN.HOSP_ITS ---
Subjective Subjective Follow-up on septic shock/acute cardiopulmonary arrest/acute GI bleed: Patient was seen and examined.?She went into A. fib with RVR yesterday. She has been started on amiodarone drip. Patient was started on dialysis yesterday. No fluid was taken off. Objective Data Objective Data Vital Signs: Vital Signs Temp Pulse Resp BP Pulse Ox O2 Del Method O2 Flow Rate 100.3 F H 144 H 13 116/67 98 Mechanical Ventilator 4 06/26/22 04:00 06/26/22 07:05 06/26/22 07:05 06/26/22 07:00 06/26/22 07:05 06/26/22 07:00 06/21/22 09:00 FiO2 90 06/26/22 07:05 Oxygen Flow Rate (L/min) 4 Oxygen Delivery Method Mechanical Ventilator Weight: 123.2 kg Body Mass Index (BMI) 40.3 Intake & Output: Intake and Output for Last 24 Hours 06/24/22 06/25/22 06/26/22 23:59 23:59 23:59 Intake Total 900.12 / 900.12 2419.32 / 2454.97 315.52 / 315.52 Output Total 475 / 475 196 / 196 50 / 50 Balance 425.12 / 425.12 2223.32 / 2258.97 265.52 / 265.52 Lab / Micro Data Result Diagrams: 06/26/22 03:50 06/26/22 03:50 Labs: Laboratory Results - last 24 hr 06/21/22 06:31: Diff Path Review Reviewed 06/21/22 13:25: Diff Path Review Reviewed 06/22/22 03:35: Diff Path Review Reviewed 06/23/22 03:40: Diff Path Review Reviewed 06/24/22 03:10: Diff Path Review Reviewed 06/25/22 03:36: Diff Path Review Reviewed 06/25/22 10:34: Hep Bs Antigen Non-Reactive, Hep Bs Antibody Non-Reactive 06/26/22 03:50: Sodium 139, Potassium 5.3 H, Chloride 104, Carbon Dioxide 28.0, Anion Gap 7, BUN 110 H*, Creatinine 2.88 H, Estim Creat Clear Calc 21.48, Est GFR (MDRD) Af Amer 22 L, Est GFR (MDRD) Non-Af 18 L, BUN/Creatinine Ratio 38.2 H , Glucose 134 H, Calcium 7.6 L, Total Bilirubin 10.70 H, AST 202 H, ALT 49, Kathy line Phosphatase 225 H, Total Protein 6.0 L, Albumin 1.5 L, Globulin 4.5 H, Albumin/Globulin Ratio 0.3 L 06/26/22 03:50: WBC CARE TECHNICIAN, Corrected WBC 23.5 H, RBC 3.42 L, Hgb 8.6 L, Hct 27.7 L, MCV 81.0, MCH 25.1 L, MCHC 31.0 L, RDW Std Deviation 67.7 H, RDW Coeff of Arnold 24.1 H, Plt Count 95 L, MPV TNP, Neut % (Auto) Not Reportable, Absolute Neuts (auto) 22.5 H, Absolute Lymphs (auto) 1.04, Total Counted 100, Neutrophils % (Manual) 80 H, Band Neutrophils % 7 H, Lymphocytes % (Manual) 4 L, Monocytes % (Manual) 1, Metamyelocytes % 1, Myelocytes % 6 H, Promyelocytes % 1 H, Nucleated RBCs/100 WBC 10 H, Diff Path Review May foll, Toxic Granulation RARE, Platelet Estimate SLT DEC, Hypochromasia 2+, Anisocytosis 1+, Microcytosis 1+ 06/26/22 03:50: Phosphorus 3.1, Magnesium 2.6 Micro: Microbiology 06/21/22 14:00 Urine Catheter - [place] Fuente Urine Culture - Final Escherichia coli Staphylococcus aureus 06/21/22 11:35 Blood Culture (Wb) - Other Blood Culture - Final Staphylococcus aureus 06/21/22 09:39 Sputum, Induced/Lukens Gram Stain - Final 06/21/22 09:39 Sputum, Induced/Lukens Respiratory Culture - Final Staphylococcus aureus Escherichia coli 06/21/22 11:35 Blood Culture (Wb) - Other Blood Culture - Final Staphylococcus aureus 06/21/22 15:43 Nasal Secretion SARS-CoV-2 Antigen (Rapid) - Final 06/21/22 14:00 Urine Catheter - Catheter Streptococcus pneumoniae Antigen (M - Final 06/21/22 14:00 Urine Catheter - [place] Legionella Antigen - Final 06/21/22 10:03 Mucosa - Nose - Final Radiography Diagnostic Testing: Radiology Impression Chest X-Ray 06/26/22 05:40 IMPRESSION: Tip of the ET tube is now projected near the origin of the left mainstem bronchus, and should be withdrawn about 2-3 cm for more optimal positioning. Nonstandard communication protocol initiated. Worsening infiltrates at the lung bases, left greater than right, most likely due to worsening pneumonia and atelectasis, though a component of pulmonary edema could also be present. Electronically Signed: Vahe Bejarano MD at 6:02 EST , ADDENDUM: 06/26/22 0611 IMPRESSION: Tip of the ET tube is now projected near the origin of the left mainstem bronchus, and should be withdrawn about 2-3 cm for more optimal positioning. Nonstandard communication protocol initiated. Worsening infiltrates at the lung bases, left greater than right, most likely due to worsening pneumonia and atelectasis, though a component of pulmonary edema could also be present. N.B. : The above Results were Read Back by Vahe Bejarano MD to Polo Purcell MD, and understanding confirmed on 06/26/2022 06:04:28 (ET). Electronically Signed: Vahe Bejarano MD at 6:02 EST , Physical Exam Narrative Physical exam: General: Sedated, intubated, on mechanical ventilator, anasarca HEENT: Atraumatic, ETT and OG tube in situ Oral: Moist Mucosa Neck: Supple Lungs: Diminished to auscultation Cardiovascular: HS I+II, regular, no murmurs Abdomen: Bowel Sounds Present, Soft, Non Tender Extremities:Bilateral pedal edema +1 Skin: No rashes, No breakdown Neurological: Grossly intact Psych/Mental Status: Appropriate Assessment & Plan Assessment/Plan (1) Cardiopulmonary arrest with successful resuscitation: (2) Septic shock: PLAN: Plan 1. Septic shock secondary to staph aureus bacteremia/E. coli/staph aureus UTI, pneumonia ,persistent Patient also with pulmonary emboli seen on CT of the abdomen/pelvis on 06/24/2022 Patient remains unstable, continue pressors, cefazolin Urine cultures growing E. coli and staph aureus. Blood cultures growing MSSA Continue on pressors, cefazolin, hydrocortisone 2. CHEN secondary to hepatorenal, started on dialysis, BUN/Cr 110/2.88, nephrology following Repeat labs in am 3. A. fib with RVR likely secondary to the above Started on amiodarone drip, will continue 4. Acute GI bleed secondary to 2 gastric ulcers, s/p EGD on 06/24/22, Status post clipping over visible vessels Continue on octreotide, IV PPI BID 5. Anemia, acute blood loss, secondary to #3, s/p 2 units pRBCs Hb is 8.6, will continue to monitor 6. Acute hypoxic respiratory failure secondary to acute cardiopulmonary arrest Remains on mechanical ventilator; dyeing machine tender following 7. Acute cardiopulmonary arrest, likely multifactorial, will continue to monitor. 8. Acute combined respiratory metabolic acidosis, improved 9. Acute transaminitis, worsening, total bilirubin, AST, ALP worsening GI following, continue rifaximin, will trend LFTs in am 10. Hyperkalemia, K 5.3, patient had dialysis yesterday, nephrology following Will trend 11. Thrombocytopenia, acute on chronic, likely secondary to alcohol use We will trend 12. Hepatic steatosis secondary to chronic alcohol use, continue lactulose, rifaximin GI following 13. DVT PPx- SCDS Charges/Coding Visit Charges Inpatient E&M: 43643 Subs Hosp L3
--- NOTE | 2022-06-26 07:17 | PCM.PN.INT ---
Assessment & Plan Assessment/Plan (1) Septic shock: PLAN: Plan RECOMMENDATIONS: 1. Continue assist-control mode mechanical ventilation. Wean FiO2 and PEEP to maintain saturations at or above 90%. 2. Continue empiric broad-spectrum antimicrobials. 3. Wean pressors as tolerated to maintain MAP greater than 65 4. Consult nephrology. Anticipate no hemodialysis today 5. Continue stress dose steroids. 6. Spontaneous breathing and awakening trials per protocol 7. Continue PPI therapy as ordered. 8. Continue to monitor H&H and transfuse if hemoglobin drops below 7 g/dL. 9. Lactulose and rifaximin per GI recommendations. 10. Tube feeds per GI IMPRESSIONS: 1. Septic shock with multisystem organ failure The patient presented to the hospital with a number of vague musculoskeletal complaints. She ultimately suffered from a cardiac arrest on the morning of June 21 and was subsequently found to have staph bacteremia. The patient has went on to develop fulminant septic shock with multisystem organ failure requiring multiple vasopressors. Patient has been holding pressure on no Levophed for almost 24 hours. The patient will be continued on broad-spectrum antimicrobials. Cultures are showing both MSSA and E. coli. Echocardiogram shows elevated pulmonary artery pressures of 40 mmHg, but EF is preserved at 60%. She will be maintained on stress dose steroids, pending improvement in her hemodynamic status. Okay to transition to prednisolone if this will help her liver function. Defer to GI. Clinical suspicion for repeat hypotension secondary to acute kidney injury and subsequent dysregulation 2. Acute combined respiratory failure The patient does have findings on plain film chest imaging concerning for underlying infection. However, she remains on empiric broad-spectrum antimicrobials. Sputum culture is currently pending. Continue assist-control mode mechanical ventilation. Wean FiO2 and PEEP to maintain oxygen saturations at or above 90%. Patient significantly volume positive. Worsening chest x-ray likely secondary to volume status and an element of atelectasis given migration of the endotracheal tube to the yoanna. 3. Acute kidney injury Likely prerenal/ischemic ATN in the setting of #1. Continue supportive measures as noted above. Creatinine has worsened. Continue to monitor urine output. Patient will require renal replacement therapy. Appreciate nephrology input. Patient does have significant elevation of BUN with decreased urine output. Dialysis completed yesterday. 4. History of alcoholic hepatitis/chronic alcohol dependency Complicates care, management, recovery and prognosis. Continue supportive care per GI recommendations. TIME: 34 minutes of critical care time, independent of procedures, was spent addressing the patient's septic shock with multisystem organ failure, acute combined respiratory failure, acute kidney injury, alcoholic hepatitis, review of all data and collaboration with the care team. Subjective Subjective Patient was able to tolerate hemodialysis yesterday, but no fluid could be removed secondary to hypotension. Patient was initiated on pressors at that time. Pressor demands have gone up overnight. At approximately 6 AM patient was having intermittent pauses and then developed A. fib with RVR. This was confirmed by EKG. Blood pressures had remained stable on the current dose of pressors, so amiodarone drip was started. Patient also found to have an endotracheal tube at the yoanna. This has subsequently been moved back 3 cm. Objective Data Objective Data Vital Signs: Vital Signs Temp Pulse Resp BP Pulse Ox O2 Del Method O2 Flow Rate 37.9 C H 144 H 13 116/67 98 Mechanical Ventilator 4 06/26/22 04:00 06/26/22 07:05 06/26/22 07:05 06/26/22 07:00 06/26/22 07:05 06/26/22 07:00 06/21/22 09:00 FiO2 90 06/26/22 07:05 Oxygen Flow Rate (L/min) 4 Oxygen Delivery Method Mechanical Ventilator Weight: 123.2 kg Body Mass Index (BMI) 40.3 Intake & Output: Intake and Output for Last 24 Hours 06/24/22 06/25/22 06/26/22 23:59 23:59 23:59 Intake Total 900.12 / 900.12 2419.32 / 2454.97 315.52 / 315.52 Output Total 475 / 475 196 / 196 50 / 50 Balance 425.12 / 425.12 2223.32 / 2258.97 265.52 / 265.52 Lab / Micro Data Attestation: I reviewed the patient's lab results. Result Diagrams: 06/26/22 03:50 06/26/22 03:50 Labs: Laboratory Results - last 24 hr 06/21/22 06:31: Diff Path Review Reviewed 06/21/22 13:25: Diff Path Review Reviewed 06/22/22 03:35: Diff Path Review Reviewed 06/23/22 03:40: Diff Path Review Reviewed 06/24/22 03:10: Diff Path Review Reviewed 06/25/22 03:36: Diff Path Review Reviewed 06/25/22 10:34: Hep Bs Antigen Non-Reactive, Hep Bs Antibody Non-Reactive 06/26/22 03:50: Sodium 139, Potassium 5.3 H, Chloride 104, Carbon Dioxide 28.0, Anion Gap 7, BUN 110 H*, Creatinine 2.88 H, Estim Creat Clear Calc 21.48, Est GFR (MDRD) Af Amer 22 L, Est GFR (MDRD) Non-Af 18 L, BUN/Creatinine Ratio 38.2 H, Glucose 134 H, Calcium 7.6 L, Total Bilirubin 10.70 H, AST 202 H, ALT 49, Alkaline Phosphatase 225 H, Total Protein 6.0 L, Albumin 1.5 L, Globulin 4.5 H, Albumin/Globulin Ratio 0.3 L 06/26/22 03:50: WBC SOFTWARE PACKAGING ENGINEER, Corrected WBC 23.5 H, RBC 3.42 L, Hgb 8.6 L, Hct 27.7 L, MCV 81.0, MCH 25.1 L, MCHC 31.0 L, RDW Std Deviation 67.7 H, RDW Coeff of Arnold 24.1 H, Plt Count 95 L, MPV TNP, Neut % (Auto) Not Reportable, Absolute Neuts (auto) 22.5 H, Absolute Lymphs (auto) 1.04, Total Counted 100, Neutrophils % (Manual) 80 H, Band Neutrophils % 7 H, Lymphocytes % (Manual) 4 L, Monocytes % (Manual) 1, Metamyelocytes % 1, Myelocytes % 6 H, Promyelocytes % 1 H, Nucleated RBCs/100 WBC 10 H, Diff Path Review May foll, Toxic Granulation RARE, Platelet Estimate SLT DEC, Hypochromasia 2+, Anisocytosis 1+, Microcytosis 1+ 06/26/22 03:50: Phosphorus 3.1, Magnesium 2.6 Micro: Microbiology 06/21/22 14:00 Urine Catheter - De La Fuente Urine Culture - Final Escherichia coli Staphylococcus aureus 06/21/22 11:35 Blood Culture (Wb) - Other Blood Culture - Final Staphylococcus aureus 06/21/22 09:39 Sputum, Induced/Lukens Gram Stain - Final 06/21/22 09:39 Sputum, Induced/Lukens Respiratory Culture - Final Staphylococcus aureus Escherichia coli 06/21/22 11:35 Blood Culture (Wb) - Other Blood Culture - Final Staphylococcus aureus 06/21/22 15:43 Nasal Secretion SARS-CoV-2 Antigen (Rapid) - Final 06/21/22 14:00 Urine Catheter - Catheter Streptococcus pneumoniae Antigen (M - Final 06/21/22 14:00 Urine Catheter - De La Fuente Legionella Antigen - Final 06/21/22 10:03 Mucosa - Nose - Final Radiography Diagnostic Testing: Radiology Impression Chest X-Ray 06/26/22 05:40 IMPRESSION: Tip of the ET tube is now projected near the origin of the left mainstem bronchus, and should be withdrawn about 2-3 cm for more optimal positioning. Nonstandard communication protocol initiated. Worsening infiltrates at the lung bases, left greater than right, most likely due to worsening pneumonia and atelectasis, though a component of pulmonary edema could also be present. Electronically Signed: Vahe Bejarano MD at 6:02 EST , ADDENDUM: 06/26/22 0611 IMPRESSION: Tip of the ET tube is now projected near the origin of the left mainstem bronchus, and should be withdrawn about 2-3 cm for more optimal positioning. Nonstandard communication protocol initiated. Worsening infiltrates at the lung bases, left greater than right, most likely due to worsening pneumonia and atelectasis, though a component of pulmonary edema could also be present. N.B. : The above Results were Read Back by Vahe Bejarano MD to Polo Purcell MD, and understanding confirmed on 06/26/2022 06:04:28 (ET). Electronically Signed: Vahe Bejarano MD at 6:02 EST , Rhythm Strip Rhythm Strip: A-fib Rate: 180 Ectopy: - (Significant ectopy noted throughout the evening) EKG A. fib with RVR: Attestation: I personally reviewed and interpreted this EKG as follows: (A. fib with RVR confirmed at 6:[address] segment changes. This represents a change from previous) Prior EKG tracings: available for review Physical Exam Const Constitutional Narrative: The patient is quite ill and toxic in appearance. She is intubated, sedated and mechanically ventilated. Anasarca noted General Appearance: patient mechanically ventilated HEENT normocephalic and head/scalp atraumatic Eyes PERRL and EOMs intact bilaterally Sclera: sclera abnormal Positive for bilateral Details: scleral injection and other (Icterus noted) Neck supple General: trachea midline Chest inspection of chest normal Resp Resp Narrative: Coarse mechanical breath sounds bilaterally, worse on the right. Breathing over the vent Auscultation: rhonchi and diminished lung sounds; Negative for rales or wheezes Cardio regular rate, regular rhythm, S1 normal heart sound, S2 normal heart sound and no murmurs Rate: tachycardic GI normal to inspection, nondistended, normoactive bowel sounds Inspection: anasarca present and abdominal distention Auscultation: normoactive bowel sounds Extremity no clubbing, cyanosis or edema General Extremity: edema Skin no rashes or lesions noted Skin Narrative: Punctate skin wounds noted without surrounding erythema Neuro Sensorium / Orientation: sedated on vent Psych Activity / Motor Behavior: restless Mood & Affect: flat affect Charges/Coding Procedures Hospitalists Procedures: 43451 Critial Care 1st Hr
--- NOTE | 2022-06-26 07:47 | NURSING ---
0610- Patient's monitor alarmed and this RN went into room to assess. Bedside monitor was showing HR 170s-180s Afib RVR sustaining. EKG was obtained and Dr. Purcell notified. 0612- EKG showed Afib RVR. Dr. Purcell is at bedside assessing and ordered an amiodarone 150mg bolus and amiodarone gtt to follow. Patient's BP 110/70s on Levophed gtt @15mcg.
[2022-06-26] MEDS: Polyethylene Glycol 3350 17 GM PACKET GT ×2 (09:45→22:09)
[2022-06-26] MEDS: Lactulose 20 GM/30 ML UDC GT ×2 (09:45→22:08)
[2022-06-26] MEDS: Chlorhexidine 15 ML PO ×2 (09:45→22:14)
[2022-06-26] MEDS: Senna/Docusate Sodium 1 Tablet 2 TABLET GT ×2 (09:47→22:09)
[2022-06-26] MEDS: rifAXIMin 550 MG Tablet GT ×2 (09:48→22:08)
[2022-06-26] MEDS: Vital AF 1.2 Cal Liquid 1,000 ML 20 ML GT (10:09)
--- NOTE | 2022-06-26 11:31 | EKG12_ITS ---
Test Reason : SGREGG Blood Pressure : / mmHG Vent. Rate : 179 BPM Atrial Rate : 277 BPM P-R Int : 000 ms QRS Dur : 090 ms QT Int : 252 ms P-R-T Axes : 000 -08 133 degrees QTc Int : [address] & T wave abnormality, consider lateral ischemia Abnormal ECG When compared with ECG of 23-JUN-2022 19:52, MANUAL COMPARISON REQUIRED, DATA IS UNCONFIRMED Confirmed by CHAPO GÓMEZ, CLARICE ([id number]), non linear editor SILVESTRE COLLINS ([id number]) on 06/30/2022 11:34:50 AM Referred By: Confirmed By:CLARICE COWAN MD
[2022-06-26] MEDS: Amiodarone 360 MG in Dextrose 5% Viaflo Bag 192.8 ML 16.7 MG CONT INF (12:57)
[2022-06-26] MEDS: Ipratropium/Albuterol Sulfate 3 ML AMPUL.NEB INHALATION ×3 (14:34→22:40)
[2022-06-26] MEDS: Cefazolin 1 GM/50 ML BAG IV (17:08)
--- NOTE | 2022-06-26 18:55 | PCM.PN.REN ---
Subjective Subjective Following for CHEN. The patient remains on ventilator and is sedated. The patient remains on IV norepinephrine although the requirement has not increased today. Mainly an uneventful day per my discussion with RN. Cannot do ROS. Objective Data Objective Data Vital Signs: Vital Signs Temp Pulse Resp BP Pulse Ox O2 Del Method O2 Flow Rate 101.7 F H 82 15 121/57 H 92 Mechanical Ventilator 4 06/26/22 13:56 06/26/22 16:00 06/26/22 14:35 06/26/22 13:56 06/26/22 16:00 06/26/22 16:00 06/21/22 09:00 FiO2 70 06/26/22 16:00 Oxygen Flow Rate (L/min) 4 Oxygen Delivery Method Mechanical Ventilator Weight: 123.2 kg Body Mass Index (BMI) 40.3 Intake & Output: Intake and Output for Last 24 Hours 06/24/22 06/25/22 06/26/22 23:59 23:59 23:59 Intake Total 900.12 / 900.12 2419.32 / 2454.97 1535.03 / 1535.03 Output Total 475 / 475 196 / 196 250 / 250 Balance 425.12 / 425.12 2223.32 / 2258.97 1285.03 / 1285.03 Lab / Micro Data Result Diagrams: 06/26/22 03:50 06/26/22 03:50 Labs: Laboratory Results - last 24 hr 06/26/22 03:50: Sodium 139, Potassium 5.3 H, Chloride 104, Carbon Dioxide 28.0, Anion Gap 7, BUN 110 H*, Creatinine 2.88 H, Estim Creat Clear Calc 21.48, Est GFR (MDRD) Af Amer 22 L, Est GFR (MDRD) Non-Af 18 L, BUN/Creatinine Ratio 38.2 H, Glucose 134 H, Calcium 7.6 L, Total Bilirubin 10.70 H, AST 202 H, ALT 49, Alkaline Phosphatase 225 H, Total Protein 6.0 L, Albumin 1.5 L, Globulin 4.5 H, Albumin/Globulin Ratio 0.3 L 06/26/22 03:50: WBC SECURITY REPRESENTATIVE, Corrected WBC 23.5 H, RBC 3.42 L, Hgb 8.6 L, Hct 27.7 L, MCV 81.0, MCH 25.1 L, MCHC 31.0 L, RDW Std Deviation 67.7 H, RDW Coeff of Arnold 24.1 H, Plt Count 95 L, MPV TNP, Neut % (Auto) Not Reportable, Absolute Neuts (auto) 22.5 H, Absolute Lymphs (auto) 1.04, Total Counted 100, Neutrophils % (Manual) 80 H, Band Neutrophils % 7 H, Lymphocytes % (Manual) 4 L, Monocytes % (Manual) 1, Metamyelocytes % 1, Myelocytes % 6 H, Promyelocytes % 1 H, Nucleated RBCs/100 WBC 10 H, Diff Path Review May foll, Toxic Granulation RARE, Platelet Estimate SLT DEC, Hypochromasia 2+, Anisocytosis 1+, Microcytosis 1+ 06/26/22 03:50: Phosphorus 3.1, Magnesium 2.6 Micro: Microbiology 06/24/22 10:15 Blood Culture (Wb) - Pic Blood Culture - Preliminary No growth in 48 hours. 06/21/22 14:00 Urine Catheter - De La Fuente Urine Culture - Final Escherichia coli Staphylococcus aureus 06/21/22 11:35 Blood Culture (Wb) - Other Blood Culture - Final Staphylococcus aureus 06/21/22 09:39 Sputum, Induced/Lukens Gram Stain - Final 06/21/22 09:39 Sputum, Induced/Lukens Respiratory Culture - Final Staphylococcus aureus Escherichia coli 06/21/22 11:35 Blood Culture (Wb) - Other Blood Culture - Final Staphylococcus aureus 06/21/22 15:43 Nasal Secretion SARS-CoV-2 Antigen (Rapid) - Final 06/21/22 14:00 Urine Catheter - Catheter Streptococcus pneumoniae Antigen (M - Final 06/21/22 14:00 Urine Catheter - De [place] Fuente Legionella Antigen - Final 06/21/22 10:03 Mucosa - Nose - Final Radiography Diagnostic Testing: Radiology Impression Chest X-Ray 06/26/22 05:40 IMPRESSION: Tip of the ET tube is now projected near the origin of the left mainstem bronchus, and should be withdrawn about 2-3 cm for more optimal positioning. Nonstandard communication protocol initiated. Worsening infiltrates at the lung bases, left greater than right, most likely due to worsening pneumonia and atelectasis, though a component of pulmonary edema could also be present. Electronically Signed: Vahe Bejarano MD at 6:02 EST , ADDENDUM: 06/26/22 0611 IMPRESSION: Tip of the ET tube is now projected near the origin of the left mainstem bronchus, and should be withdrawn about 2-3 cm for more optimal positioning. Nonstandard communication protocol initiated. Worsening infiltrates at the lung bases, left greater than right, most likely due to worsening pneumonia and atelectasis, though a component of pulmonary edema could also be present. N.B. : The above Results were Read Back by Vahe Bejarano MD to Polo Purcell MD, and understanding confirmed on 06/26/2022 06:04:28 (ET). Electronically Signed: Vahe Bejarano MD at 6:02 EST , Rhythm Strip Rhythm Strip: A-fib Rate: 180 Ectopy: - (Significant ectopy noted throughout the evening) Physical Exam Narrative Const: On vent. No apparent distress Cardio: Normal S1, S2 rate controlled Respiratory: No audible wheezing. Diminished breath sounds. : Indwelling De La Fuente with scant yellow urine in bag GI: Positive bowel sounds Extremities: Generalized edema noted bilateral lower legs, feet, arms and hands Nontunneled temporary right IJ HD catheter dressing clean, dry and intact Assessment & Plan Assessment/Plan (1) Cardiopulmonary arrest with successful resuscitation: (2) Septic shock: (3) CHEN (acute kidney injury): (4) GI bleed: PLAN: Plan - Initially nonoliguric CHEN likely pre-renal from septic shock (Staph aureus bacteremia and E. coli/staph aureus UTI), cardiopulmonary arrest with decreased renal perfusion which has likely evolved to ATN. -Patient has normal baseline creatinine. Serum creatinine 1.79 mg/dL on admission (06/10). Serum creatinine 3.02 mg/dL and BUN 141 on 06/25/2022. Urine output has also declined, patient becoming hypervolemic and had poor response to multiple doses of IV Lasix. -Patient had temporary HD catheter placed 06/25. First HD yesterday with no UF because of hypotension over 2.5 hours on 2K dialysate. -Blood pressures had improved compared to 2 days ago and patient was off pressors for about 12 hours. Back on Levophed at 5mcg. -We will hold off on dialysis today. We monitor likely need to dialyze again tomorrow. Continue to monitor for renal recovery. -Continue to keep the patient off potassium supplements. -GI is following patient for elevated liver enzymes, alcohol hepatitis/thrombocytopenia/hepatomegaly. She did have Upper GI with findings of oozing gastric ulcers s/p clipping. She is on PPI gtt, lactulose, Rifaximin -On antibiotics, cefazolin.
[2022-06-27] VITALS (41 sets, daily range): BP systolic 76–127; BP diastolic 38–82; PULSE 81–165; RESP 12–27; TEMP 37.1–38.6; O2SAT 90–96
[2022-06-27] MEDS: Amiodarone 360 MG in Dextrose 5% Viaflo Bag 192.8 ML 16.7 MG CONT INF ×3 (01:34→22:09)
[2022-06-27] MEDS: Hydrocortisone Sod Succinate 100 MG/2 ML Vial 50 MG IV ×4 (01:38→17:12)
--- NOTE | 2022-06-27 01:59 | NURSING ---
Patient prefers supination with head of bed elevated for optimal oxygenation.
[2022-06-27 03:39] LABS: Hematocrit 30.1 % (37-47); Hemoglobin 9.2 g/dL (12.0-15.0); Mean Corp Hgb Conc 30.6 g/dL (32-36); Mean Corpuscular Hgb 25.5 pg (27.0-32.0); Mean Corpuscular Volume 83.4 fL (81-99); POSITIVE COUNT YES; POSITIVE DIFFERENTIAL YES; POSITIVE MORPHOLOGY YES; Platelet Count 177 K/mm3 (150-450); RBC Distribution Width SD 68.3 fl (35.1-43.9); Red Blood Count 3.61 M/mm3 (4.2-5.4)
[2022-06-27 03:41] LABS: Differential Indicated MANUAL DIFF
[2022-06-27 03:58] LABS: ALB/GLOB Ratio 0.3 RATIO (0.9-2.4); AST(SGOT) 188 U/L (15-37); Alanine Aminotransfer ALT/SGPT 36 U/L (13-56); Albumin, Serum 1.5 g/dL (3.2-5.0); Alkaline Phosphatase 251 U/L (45-117); Anion Gap 8 (5-15); BUN 131 mg/dL (7-18); BUN/Creat Ratio 35.3 RATIO (10-20); Calcium,Total 7.5 mg/dL (8.5-10.1); Chloride 100 mmol/L (98-107); Creatinine, Serum 3.71 mg/dL (0.55-1.02); EST Glomerular Filtration Rate 13 mL/min (>60); Est Glom Filt Rate - Afr Amer 16 mL/min (>60); Estimated Creatinine Clearance 16.67 ml/min; Globulin 4.8 g/dL (2.2-4.2); Glucose 141 mg/dL (74-106); Potassium 6.5 mmol/L (3.5-5.1); Protein, Total 6.3 g/dL (6.4-8.2); Sodium Level 133 mmol/L (136-145)
--- NOTE | 2022-06-27 04:04 | NURSING ---
notified of Afib w/RVR. New orders for Amiodarone bolus and drip placed. also notified of critical lab results. Potassium: 6.5, BUN: 131, WBC: 35.6 and Gram positive cocci in clusters in Aerobic BC bottles.
--- NOTE | 2022-06-27 04:11 | EKG12_ITS ---
Test Reason : ARRYTHMIA Blood Pressure : / mmHG Vent. Rate : 142 BPM Atrial Rate : 150 BPM P-R Int : 000 ms QRS Dur : 090 ms QT Int : 260 ms P-R-T Axes : 000 -17 015 degrees QTc Int : 399 ms Atrial fibrillation Voltage criteria for left ventricular hypertrophy Inferior infarct , age undetermined Abnormal ECG When compared with ECG of 20-JUN-2022 10:38, Atrial fibrillation has replaced Sinus rhythm Inferior infarct is now Present Confirmed by CHAPO GÓMEZ, CLARICE ([id number]), deputy editor in chief SILVESTRE COLLINS ([id number]) on 06/27/2022 11:10:55 AM Referred By: SHELBIE Confirmed By:CLARICE COWAN MD
[2022-06-27 04:14] LABS: Corrected WBC 33.6 K/mm3 (4.4-11.0); Lymphocyte 8 % (19-41); Metamyelocyte 7 % (0-1); Myelocyte 2 % (0-0); Neutrophil-Band 4 % (0-5); Neutrophil-Segmented 79 % (47-70); Nucleated Red Bld Cells,Manual 6 % (0-5); Total Cells Counted 100 (MANUAL DIFF)
[2022-06-27 04:16] LABS: Absolute Lymphocyte Count 2.85 X10^3/uL (0.83-4.51); Absolute Neutrophil Count 32.8 X10^3/uL (2.0-7.7); Lymphocyte # 2.85 X10^3/ul (0.83-4.51); Neutrophil # 32.78 X10^3/uL (2.7-7.7)
[2022-06-27 04:17] LABS: Platelet Estimate ADEQUATE (ADEQ)
[2022-06-27 04:18] LABS: Anisocytosis 2+; Microcytosis 1+; Polychromasia 1+
--- NOTE | 2022-06-27 04:23 | NURSING ---
Called Dr. Vargas per hospitalist instruction. New order for kayexelate in addition to Insulin/D50
[2022-06-27] MEDS: Amiodarone 360 MG in Dextrose 5% Viaflo Bag 192.8 ML 33.3 MG CONT INF (04:25)
[2022-06-27] MEDS: Dextrose 50%-Water 25 GM/50 ML DISP.SYRIN IV (04:30)
[2022-06-27] MEDS: Insulin Lispro 10 UNIT in Syringe 0 ML 6 UNIT IV (04:30)
[2022-06-27] MEDS: 0.9% Saline Lock 10 ML Syringe IV ×2 (04:37→21:22)
[2022-06-27] MEDS: Sodium Polystyrene Sulfonate 15 GM/60 ML UDC 30 GM PO (05:09)
[2022-06-27] MEDS: Menthol/Lanolin/Calamine/Znox 113 GM Tube 1 APPLIC TOPICAL ×3 (05:09→21:22)
--- NOTE | 2022-06-27 05:18 | EKG12_ITS ---
Test Reason : A-FIB Blood Pressure : / mmHG Vent. Rate : 130 BPM Atrial Rate : 122 BPM P-R Int : 000 ms QRS Dur : 100 ms QT Int : 300 ms P-R-T Axes : 000 -16 095 degrees QTc Int : [address] & T wave abnormality, consider lateral ischemia Abnormal ECG When compared with ECG of 26-JUN-2022 11:31, MANUAL COMPARISON REQUIRED, DATA IS UNCONFIRMED Confirmed by CHAPO GÓMEZ, CLARICE ([id number]), communications editor SILVESTRE COLLINS ([id number]) on 06/30/2022 11:42:49 AM Referred By: CALIXTO Confirmed By:LCARICE COWAN MD
--- NOTE | 2022-06-27 05:55 | PCM.RX.CS ---
Consult Pharmacy has been consulted to manage selected antiobiotic: Vancomycin Type of Consult: New start Suspected Infection: Bacteremia Prior Doses of Antibiotics Received/Current Regimen: Medications Vancomycin HCl 2,000 mg/ (Sodium Chloride) 540 mls @ 250 mls/hr IV X1 ONE Stop: 06/27/22 08:09 Labs: Sodium 133 mmol/L (136-145) L 06/27/22 03:25 Potassium 6.5 mmol/L (3.5-5.1) H* 06/27/22 03:25 Chloride 100 mmol/L (98-107) 06/27/22 03:25 Carbon Dioxide 25.0 mmol/L (21.0-32.0) 06/27/22 03:25 Anion Gap 8 (5-15) 06/27/22 03:25 BUN 131 mg/dL (7-18) H* 06/27/22 03:25 Creatinine 3.71 mg/dL (0.55-1.02) H 06/27/22 03:25 Est GFR (MDRD) Af Amer 16 mL/min (>60) L 06/27/22 03:25 Est GFR (MDRD) Non-Af 13 mL/min (>60) L 06/27/22 03:25 BUN/Creatinine Ratio 35.3 RATIO (10-20) H 06/27/22 03:25 Glucose 141 mg/dL (74-106) H 06/27/22 03:25 Vancomycin Trough 22.7 ug/mL (5.0-15.0) H 06/23/22 13:40 Microbiology: Microbiology 06/25/22 14:45 Blood Culture (Wb) - Anticubital Left Blood Culture - Preliminary 06/24/22 10:15 Blood Culture (Wb) - Pic Blood Culture - Preliminary 06/21/22 14:00 Urine Catheter - De La Fuente Urine Culture - Final Escherichia coli Staphylococcus aureus 06/21/22 11:35 Blood Culture (Wb) - Other Blood Culture - Final Staphylococcus aureus 06/21/22 09:39 Sputum, Induced/Lukens Gram Stain - Final 06/21/22 09:39 Sputum, Induced/Lukens Respiratory Culture - Final Staphylococcus aureus Escherichia coli 06/21/22 11:35 Blood Culture (Wb) - Other Blood Culture - Final Staphylococcus aureus 06/21/22 15:43 Nasal Secretion SARS-CoV-2 Antigen (Rapid) - Final 06/21/22 14:00 Urine Catheter - Catheter Streptococcus pneumoniae Antigen (M - Final 06/21/22 14:00 Urine Catheter - De [place] Fuente Legionella Antigen - Final 06/21/22 10:03 Mucosa - Nose - Final Weight used for dosin kg Estimated Creatinine Clearance: 16.7 Goal Trough: 15-20 mcg/mL Pharmacy Plan for Drug Dosing: Vancomycin was re-started with a loading dose of 2000mg. Pharmacy will verify dialysis dates/times for subsequent doses. Pharmacy Service will continue to monitor and adjust dosing as required.
--- NOTE | 2022-06-27 06:58 | PN.CC_ITS ---
Assessment & Plan Assessment/Plan (1) Septic shock: PLAN: Plan RECOMMENDATIONS: 1. Continue assist-control mode mechanical ventilation. Wean FiO2 and PEEP to maintain saturations at or above 90%. 2. Add vancomycin given gram-positive cocci in blood culture 3. Wean pressors as tolerated to maintain MAP greater than 65 4. Appreciate nephrology input. Anticipate hemodialysis today 5. Continue stress dose steroids. 6. Spontaneous breathing and awakening trials per protocol 7. Continue PPI therapy as ordered. 8. Continue to monitor H&H and transfuse if hemoglobin drops below 7 g/dL. 9. Lactulose and rifaximin per GI recommendations. 10. Tube feeds per GI IMPRESSIONS: 1. Septic shock with multisystem organ failure The patient presented to the hospital with a number of vague musculoskeletal complaints. She ultimately suffered from a cardiac arrest on the morning of June 21 and was subsequently found to have staph bacteremia. The patient has went on to develop fulminant septic shock with multisystem organ failure requiring multiple vasopressors. Patient has been holding pressure on no Levophed for almost 24 hours. The patient will be continued on broad- spectrum antimicrobials. Cultures are showing both MSSA and E. coli. Antibiotics had been narrowed, but there is some concern for the development of MRSA given gram-positive cocci on recent blood culture. Echocardiogram shows elevated pulmonary artery pressures of 40 mmHg, but EF is preserved at 60%. Patient is much more volume overloaded at this time, so pulmonary artery pressures are likely higher. She will be maintained on stress dose steroids, pending improvement in her hemodynamic status. Okay to transition to predn isolone if this will help her liver function. Defer to GI. Clinical suspicion for repeat hypotension secondary to acute kidney injury and subsequent dysregulation 2. Acute combined respiratory failure The patient does have findings on plain film chest imaging concerning for underlying infection. However, she remains on empiric broad-spectrum antimicrobials. Sputum culture is currently pending. Continue assist-control mode mechanical ventilation. Wean FiO2 and PEEP to maintain oxygen saturations at or above 90%. Patient significantly volume positive. Worsening chest x-ray likely secondary to volume status and an element of atelectasis given migration of the endotracheal tube to the yoanna. We will attempt to wean PEEP if able to get to 50% FiO2. This will likely require volume removal. 3. Acute kidney injury Likely prerenal/ischemic ATN in the setting of #1. Continue supportive measures as noted above. Creatinine has worsened. Continue to monitor urine output. Patient will require renal replacement therapy. Appreciate nephrology input. Patient does have significant elevation of BUN with decreased urine out put. Dialysis completed yesterday. 4. History of alcoholic hepatitis/chronic alcohol dependency Complicates care, management, recovery and prognosis. Continue supportive care per GI recommendations. TIME: 32 minutes of critical care time, independent of procedures, was spent addressing the patient's septic shock with multisystem organ failure, acute combined respiratory failure, acute kidney injury, alcoholic hepatitis, review of all data and collaboration with the care team. Subjective Subjective Patient continues to have issues with A. fib with RVR overnight. Patient also had elevated body temperature. Patient was given Kayexalate secondary to elevated potassium. Despite this, patient's Levophed requirements have remained stable. Patient is not responsive. Patient is not sedated and restrained. Objective Data Objective Data Vital Signs: Vital Signs Temp Pulse Resp BP Pulse Ox O2 Del Method O2 Flow Rate 37.4 C H 134 H 13 107/70 92 Mechanical Ventilator 4 06/27/22 06:00 06/27/22 06:00 06/27/22 06:00 06/27/22 06:00 06/27/22 06:00 06/27/22 06:00 06/21/22 09:00 FiO2 65 06/27/22 06:00 Oxygen Flow Rate (L/min) 4 Oxygen Delivery Method Mechanical Ventilator Weight: 128.3 kg Body Mass Index (BMI) 40.3 Intake & Output: Intake and Output for Last 24 Hours 06/25/22 06/26/22 06/27/22 23:59 23:59 23:59 Intake Total 2419.32 / 2454.97 1925.03 / 1983.13 604.23 / 604.23 Output Total 196 / 196 250 / 375 245 / 245 Balance 2223.32 / 2258.97 1675.03 / 1608.13 359.23 / 359.23 Lab / Micro Data Attestation: I reviewed the patient's lab results. Result Diagrams: 06/27/22 03:25 06/27/22 03:25 Labs: Laboratory Results - last 24 hr 06/27/22 03:25: WBC POULTRY SCALDER, Corrected WBC 33.6 H*, RBC 3.61 L, Hgb 9.2 L, Hct 30.1 L , MCV 83.4, MCH 25.5 L, MCHC 30.6 L, RDW Std Deviation 68.3 H, RDW Coeff of Arnold 24.0 H, Plt Count 177, Neut % (Auto) Not Reportable, Absolute Neuts (auto) 32.8 H, Absolute Lymphs (auto) 2.85, Total Counted 100, Neutrophils % (Manual) 79 H, Band Neutrophils % 4, Lymphocytes % (Manual) 8 L, Metamyelocytes % 7 H, Myelocytes % 2 H, Nucleated RBCs/100 WBC 6 H, Diff Path Review May foll, Platelet Estimate ADEQUATE, Polychromasia 1+, Anisocytosis 2+, Microcytosis 1+ 06/27/22 03:25: Sodium 133 L, Potassium 6.5 H*, Chloride 100, Carbon Dioxide 25.0, Anion Gap 8, BUN 131 H*, Creatinine 3.71 H, Estim Creat Clear Calc 16.67, Est GFR (MDRD) Af Amer 16 L, Est GFR (MDRD) Non-Af 13 L, BUN/Creatinine Ratio 35.3 H, Glucose 141 H, Calcium 7.5 L, Total Bilirubin 9.70 H, AST 188 H, ALT 36, Alkaline Phosphatase 251 H, Total Protein 6.3 L, Albumin 1.5 L, Globulin 4.8 H, Albumin/Globulin Ratio 0.3 L Micro: Microbiology 06/25/22 14:45 Blood Culture (Wb) - Anticubital Left Blood Culture - Preliminary 06/24/22 10:15 Blood Culture (Wb) - Pic Blood Culture - Preliminary 06/21/22 14:00 Urine Catheter - De La Fuente Urine Culture - Final Escherichia coli Staphylococcus aureus 06/21/22 11:35 Blood Culture (Wb) - Other Blood Culture - Final Staphylococcus aureus 06/21/22 09:39 Sputum, Induced/Lukens Gram Stain - Final 06/21/22 09:39 Sputum, Induced/Lukens Respiratory Culture - Final Staphylococcus aureus Escherichia coli 06/21/22 11:35 Blood Culture (Wb) - Other Blood Culture - Final Staphylococcus aureus 06/21/22 15:43 Nasal Secretion SARS-CoV-2 Antigen (Rapid) - Final 06/21/22 14:00 Urine Catheter - Catheter Streptococcus pneumoniae Antigen (M - Final 06/21/22 14:00 Urine Catheter - De La Fuente Legionella Antigen - Final 06/21/22 10:03 Mucosa - Nose - Final Rhythm Strip Rhythm Strip: A-fib Rate: 134 Ectopy: - (Significant ectopy noted throughout the evening) Physical Exam Const Constitutional Narrative: The patient is quite ill and toxic in appearance. She is intubated and mech anically ventilated. Anasarca noted General Appearance: ill appearing and patient mechanically ventilated HEENT normocephalic and head/scalp atraumatic Eyes PERRL and EOMs intact bilaterally Sclera: sclera abnormal Positive for bilateral Details: scleral injection and other (Icterus noted) Neck supple General: trachea midline Chest inspection of chest normal Resp Resp Narrative: Coarse mechanical breath sounds bilaterally, worse on the right. Breathing over the vent Auscultation: rhonchi and diminished lung sounds; Negative for rales or wheezes Cardio regular rate, regular rhythm, S1 normal heart sound, S2 normal heart sound and no murmurs Rate: tachycardic GI normal to inspection, nondistended, normoactive bowel sounds Inspection: anasarca present and abdominal distention Auscultation: normoactive bowel sounds Extremity no clubbing, cyanosis or edema General Extremity: edema Skin no rashes or lesions noted Neuro Sensorium / Orientation: sedated on vent Psych Activity / Motor Behavior: restless Mood & Affect: flat affect Charges/Coding Procedures Hospitalists Procedures: 81082 Critial Care 1st Hr
--- NOTE | 2022-06-27 07:16 | PCM.PN.HOSP ---
Subjective Subjective Follow-up on septic shock/acute cardiopulmonary arrest/acute GI bleed: Patient was seen and examined.?HR remains elevated. Seen on dialysis. Patient with dry blood around ET tube Objective Data Objective Data Vital Signs: Vital Signs Temp Pulse Resp BP Pulse Ox O2 Del Method O2 Flow Rate 99.6 F H 134 H 13 97/63 93 Mechanical Ventilator 4 06/27/22 07:00 06/27/22 07:00 06/27/22 07:00 06/27/22 07:00 06/27/22 07:00 06/27/22 07:00 06/21/22 09:00 FiO2 65 06/27/22 07:00 Oxygen Flow Rate (L/min) 4 Oxygen Delivery Method Mechanical Ventilator Weight: 128.3 kg Body Mass Index (BMI) 40.3 Intake & Output: Intake and Output for Last 24 Hours 06/25/22 06/26/22 06/27/22 23:59 23:59 23:59 Intake Total 2419.32 / 2454.97 1925.03 / 1983.13 632.33 / 632.33 Output Total 196 / 196 250 / 375 245 / 245 Balance 2223.32 / 2258.97 1675.03 / 1608.13 387.33 / 387.33 Lab / Micro Data Result Diagrams: 06/27/22 03:25 06/27/22 03:25 Labs: Laboratory Results - last 24 hr 06/27/22 03:25: WBC TELEPHONIC NURSE CASE MANAGER, Corrected WBC 33.6 H*, RBC 3.61 L, Hgb 9.2 L, Hct 30.1 L, MCV 83.4, MCH 25.5 L, MCHC 30.6 L, RDW Std Deviation 68.3 H, RDW Coeff of Arnold 24.0 H, Plt Count 177, Neut % (Auto) Not Reportable, Absolute Neuts (auto) 32.8 H, Absolute Lymphs (auto) 2.85, Total Counted 100, Neutrophils % (Manual) 79 H, Band Neutrophils % 4, Lymphocytes % (Manual) 8 L, Metamyelocytes % 7 H, Myelocytes % 2 H, Nucleated RBCs/100 WBC 6 H, Diff Path Review May , Platelet Estimate ADEQUATE, Polychromasia 1+, Anisocytosis 2+, Microcytosis 1+ 06/27/22 03:25: Sodium 133 L, Potassium 6.5 H*, Chloride 100, Carbon Dioxide 25.0, Anion Gap 8, BUN 131 H*, Creatinine 3.71 H, Estim Creat Clear Calc 16.67, Est GFR (MDRD) Af Amer 16 L, Est GFR (MDRD) Non-Af 13 L, BUN/Creatinine Ratio 35.3 H, Glucose 141 H, Calcium 7.5 L, Total Bilirubin 9.70 H, AST 188 H, ALT 36, Alkaline Phosphatase 251 H, Total Protein 6.3 L, Albumin 1.5 L, Globulin 4.8 H, Albumin/Globulin Ratio 0.3 L Micro: Microbiology 06/25/22 14:45 Blood Culture (Wb) - Anticubital Left Blood Culture - Preliminary 06/24/22 10:15 Blood Culture (Wb) - Pic Blood Culture - Preliminary 06/21/22 14:00 Urine Catheter - De La Fuente Urine Culture - Final Escherichia coli Staphylococcus aureus 06/21/22 11:35 Blood Culture (Wb) - Other Blood Culture - Final Staphylococcus aureus 06/21/22 09:39 Sputum, Induced/Lukens Gram Stain - Final 06/21/22 09:39 Sputum, Induced/Lukens Respiratory Culture - Final Staphylococcus aureus Escherichia coli 06/21/22 11:35 Blood Culture (Wb) - Other Blood Culture - Final Staphylococcus aureus 06/21/22 15:43 Nasal Secretion SARS-CoV-2 Antigen (Rapid) - Final 06/21/22 14:00 Urine Catheter - Catheter Streptococcus pneumoniae Antigen (M - Final 06/21/22 14:00 Urine Catheter - De La Fuente Legionella Antigen - Final 06/21/22 10:03 Mucosa - Nose - Final Rhythm Strip Rhythm Strip: A-fib Rate: 134 Ectopy: - (Significant ectopy noted throughout the evening) Physical Exam Narrative Physical exam: General: Sedated, intubated, on mechanical ventilator, anasarca, jaundiced++ HEENT: Atraumatic, ETT and OG tube in situ Oral: Moist Mucosa Neck: Supple Lungs: Diminished to auscultation Cardiovascular: HS I+II, regular, no murmurs Abdomen: Bowel Sounds Present, Soft, Non Tender Extremities:Bilateral pedal edema +1 Skin: No rashes, No breakdown Neurological: Grossly intact Psych/Mental Status: Appropriate Assessment & Plan Assessment/Plan (1) Cardiopulmonary arrest with successful resuscitation: (2) Septic shock: PLAN: Plan 1. Septic shock secondary to staph aureus bacteremia/E. coli/staph aureus UTI, pneumonia ,persistent Patient also with septic pulmonary emboli seen on CT of the abdomen/pelvis on 06/24/2022 Patient remains unstable, continue pressors, cefazolin Urine cultures growing E. coli and staph aureus. Blood cultures growing MSSA Continue on pressors, cefazolin, hydrocortisone 2. Hyperkalemia, potassium 6.5, secondary to CHEN Patient is on dialysis, will repeat labs in am 3. CHEN secondary to hepatorenal, started on dialysis, BUN/Cr 131/3.71, nephrology following Repeat labs in am 4. A. fib with RVR likely secondary to the above, persistent Continue on amiodarone drip 5. Acute GI bleed secondary to 2 gastric ulcers, s/p EGD on 06/24/22, Status post clipping over visible vessels Continue on octreotide, IV PPI BID 6. Anemia, acute blood loss, secondary to #3, s/p 2 units pRBCs Hb is 9.2, will continue to monitor 7. Acute hypoxic respiratory failure secondary to acute cardiopulmonary arrest Remains on mechanical ventilator; senior rd engineer following 8. Acute cardiopulmonary arrest, likely multifactorial, will continue to monitor. 9. Acute combined respiratory metabolic acidosis, improved 10. Acute transaminitis, worsening, total bilirubin, AST, ALP worsening GI following, continue rifaximin, will trend LFTs in am 11. Thrombocytopenia, acute on chronic, likely secondary to alcohol use, improving 12. Hepatic steatosis secondary to chronic alcohol use, continue lactulose, rifaximin GI following 13. DVT PPx- SCDS Charges/Coding Visit Charges Inpatient E&M: 93590 [facility] Hosp L3
[2022-06-27] MEDS: Chlorhexidine 15 ML PO ×2 (07:48→21:34)
[2022-06-27] MEDS: Polyethylene Glycol 3350 17 GM PACKET GT ×2 (07:50→21:22)
[2022-06-27] MEDS: Lactulose 20 GM/30 ML UDC GT ×2 (07:50→21:22)
[2022-06-27] MEDS: Pentoxifylline 400 MG Tablet PO (07:52)
[2022-06-27] MEDS: rifAXIMin 550 MG Tablet GT ×2 (07:52→21:22)
[2022-06-27] MEDS: LORazepam 2 MG/ML Syringe IV ×2 (09:09→09:34)
--- NOTE | 2022-06-27 09:52 | NURSING ---
facial seizure activity observed subsided after ativan 2mg ivpx2 as per order
[2022-06-27] MEDS: CHLORHEXIDINE GLUC 2% CLOTH 1 EACH TOWELETTE TOPICAL (10:35)
--- NOTE | 2022-06-27 11:08 | DIALYSIS ---
Hemodialysis x3 hours completed at 1040 on a 1K bath, 2nd tx, tolerated fair, UF 500mL, Levo at 15mcg, seizure activity that started at 0903, eyes fluttering that progressed to mouth movement, accessed via RIJ temporary dialysis catheter, worked well
--- NOTE | 2022-06-27 11:26 | PCM.PN.ID ---
Physical Exam Narrative On vent, pressors, HD. New seizures. Had fever yesterday, vanc restarted. Const Constitutional Narrative: ill appearing, pronounced facial spasms/twitching Resp Effort and Inspection: mechanically ventilated Auscultation: rhonchi and diminished lung sounds Cardio Rate: tachycardic GI soft to palpation, non-tender and non-distended Extremity General Extremity: edema Skin no rashes or lesions noted ID ID: Route of nutrition/ use of supplements: [] Nutritional Intake: [] IV Site: [] De La Fuente Catheter: [] Assessment & Plan Assessment/Plan (1) MSSA bacteremia: PLAN: septic shock due to mssa bacteremia - Ucx and sputum cx with ecoli and mssa. Wbc now worsening, remains on pressors, fever has returned, and new seizures. On HD. TTE showed no veg. Will check repeat bcx. CT showed mild ascites, possible septic emboli to lungs. 06/24 narrowed vanc/cefepime to cefazolin. Now vanc restarted. Recommend SHARON. Overall poor prognosis. Will follow (2) GI bleed: (3) Septic shock: (4) Cardiopulmonary arrest with successful resuscitation: (5) Alcoholic hepatitis:
[2022-06-27] MEDS: Vital AF 1.2 Cal Liquid 1,000 ML 20 ML GT (11:43)
[2022-06-27] MEDS: Propofol 10MG/Ml 1,000 MG/100 ML Bottle 7.7 MG CONT INF ×2 (11:58→22:11)
--- NOTE | 2022-06-27 13:09 | DIALYSIS ---
3rd dialysis treatment planned for tomorrow
[2022-06-27 13:28] LABS: Pathologist Review Reviewed
[2022-06-27 13:32] LABS: Pathologist Review Reviewed
[2022-06-27 14:16] LABS: CPK Total, Creatine Kinase 123 U/L (26-192); Triglycerides 335 mg/dL
--- NOTE | 2022-06-27 15:04 | PCM.RX.CS ---
Consult Pharmacy has been consulted to manage selected antiobiotic: Vancomycin Type of Consult: Follow-up Suspected Infection: Bacteremia Prior Doses of Antibiotics Received/Current Regimen: Received 2gm iv x 1 on 06.27.22 post dialysis. Labs: Sodium 133 mmol/L (136-145) L 06/27/22 03:25 Potassium 6.5 mmol/L (3.5-5.1) H* 06/27/22 03:25 Chloride 100 mmol/L (98-107) 06/27/22 03:25 Carbon Dioxide 25.0 mmol/L (21.0-32.0) 06/27/22 03:25 Anion Gap 8 (5-15) 06/27/22 03:25 BUN 131 mg/dL (7-18) H* 06/27/22 03:25 Creatinine 3.71 mg/dL (0.55-1.02) H 06/27/22 03:25 Est GFR (MDRD) Af Amer 16 mL/min (>60) L 06/27/22 03:25 Est GFR (MDRD) Non-Af 13 mL/min (>60) L 06/27/22 03:25 BUN/Creatinine Ratio 35.3 RATIO (10-20) H 06/27/22 03:25 Glucose 141 mg/dL (74-106) H 06/27/22 03:25 Vancomycin Trough 22.7 ug/mL (5.0-15.0) H 06/23/22 13:40 Microbiology: Microbiology 06/25/22 14:45 Blood Culture (Wb) - Anticubital Left Blood Culture - Preliminary Staphylococcus aureus 06/24/22 10:15 Blood Culture (Wb) - Pic Blood Culture - Preliminary Staphylococcus aureus 06/21/22 14:00 Urine Catheter - De La Fuente Urine Culture - Final Escherichia coli Staphylococcus aureus 06/21/22 11:35 Blood Culture (Wb) - Other Blood Culture - Final Staphylococcus aureus 06/21/22 09:39 Sputum, Induced/Lukens Gram Stain - Final 06/21/22 09:39 Sputum, Induced/Lukens Respiratory Culture - Final Staphylococcus aureus Escherichia coli 06/21/22 11:35 Blood Culture (Wb) - Other Blood Culture - Final Staphylococcus aureus 06/21/22 15:43 Nasal Secretion SARS-CoV-2 Antigen (Rapid) - Final 06/21/22 14:00 Urine Catheter - Catheter Streptococcus pneumoniae Antigen (M - Final 06/21/22 14:00 Urine Catheter - De La Fuente Legionella Antigen - Final 06/21/22 10:03 Mucosa - Nose - Final Weight used for dosin kg Estimated Creatinine Clearance: 17 ml/min Goal Trough: 15-20 mcg/mL Pharmacy Plan for Drug Dosing: Dialysis tentatively planned for tomorrow 06.28.22. If so, will give a dose post dialysis. Random level will be ordered for subsequent pre-dialysis session per policy. Pharmacy Service will continue to monitor and adjust dosing as required.
[2022-06-27] MEDS: Cefazolin 1 GM/50 ML BAG IV (16:09)
[2022-06-27] MEDS: Acetaminophen 650 MG/20 ML UDC GT (16:10)
--- NOTE | 2022-06-27 20:03 | PN.RENAL_ITS ---
Subjective Subjective Following for CHEN. The patient remains on ventilator and is sedated. The patient remains on IV norepinephrine although the requirement has not increased today. She remains on 15 mcg/min of IV norepinephrine. The patient was dialyzed earlier today. We are unable to remove much fluid because of hypotension. Cannot do ROS. Objective Data Objective Data Vital Signs: Vital Signs Temp Pulse Resp BP Pulse Ox O2 Del Method O2 Flow Rate 100.4 F H 154 H 12 99/50 L 90 Mechanical Ventilator 4 06/27/22 16:06 06/27/22 17:39 06/27/22 17:39 06/27/22 16:06 06/27/22 17:39 06/27/22 16:00 06/21/22 09:00 FiO2 65 06/27/22 17:39 Oxygen Flow Rate (L/min) 4 Oxygen Delivery Method Mechanical Ventilator Weight: 128.3 kg Body Mass Index (BMI) 40.3 Intake & Output: Intake and Output for Last 24 Hours 06/25/22 06/26/22 06/27/22 23:59 23:59 23:59 Intake Total 2419.32 / 2454.97 1925.03 / 1982.13 3099.37 / 3099.37 Output Total 196 / 196 250 / 375 1965 / 1965 Balance 2223.32 / 2258.97 1675.03 / 1608.13 1134.37 / 1134.37 Lab / Micro Data Result Diagrams: 06/27/22 03:25 06/27/22 03:25 Labs: Laboratory Results - last 24 hr 06/26/22 03:50: Diff Path Review Reviewed 06/27/22 03:25: WBC 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 SERVICE SUPERVISOR, Corrected WBC 33.6 H*, RBC 3.61 L, Hgb 9.2 L, Hct 30.1 L , MCV 83.4, MCH 25.5 L, MCHC 30.6 L, RDW Std Deviation 68.3 H, RDW Coeff of Arnold 24.0 H, Plt Count 177, Neut % (Auto) Not Reportable, Absolute Neuts (auto) 32.8 H, Absolute Lymphs (auto) 2.85, Total Counted 100, Neutrophils % (Manual) 79 H, Band Neutrophils % 4, Lymphocytes % (Manual) 8 L, Metamyelocytes % 7 H, Myelocytes % 2 H, Nucleated RBCs/100 WBC 6 H, Diff Path Review Reviewed, Platelet Estimate ADEQUATE, Polychromasia 1+, Anisocytosis 2+, Microcytosis 1+ 06/27/22 03:25: Sodium 133 L, Potassium 6.5 H*, Chloride 100, Carbon Dioxide 25.0, Anion Gap 8, BUN 131 H*, Creatinine 3.71 H, Estim Creat Clear Calc 16.67, Est GFR (MDRD) Af Amer 16 L, Est GFR (MDRD) Non-Af 13 L, BUN/Creatinine Ratio 35.3 H, Glucose 141 H, Calcium 7.5 L, Total Bilirubin 9.70 H, AST 188 H, ALT 36, Alkaline Phosphatase 251 H, Total Protein 6.3 L, Albumin 1.5 L, Globulin 4.8 H, Albumin/Globulin Ratio 0.3 L 06/27/22 03:25: Total Creatine Kinase 123, Triglycerides 335 H Micro: Microbiology 06/25/22 14:45 Blood Culture (Wb) - Anticubital Left Blood Culture - Preliminary Staphylococcus aureus 06/24/22 10:15 Blood Culture (Wb) - Pic Blood Culture - Preliminary Staphylococcus aureus 06/21/22 14:00 Urine Catheter - De La Fuente Urine Culture - Final Escherichia coli Staphylococcus aureus 06/21/22 11:35 Blood Culture (Wb) - Other Blood Culture - Final Staphylococcus aureus 06/21/22 09:39 Sputum, Induced/Lukens Gram Stain - Final 06/21/22 09:39 Sputum, Induced/Lukens Respiratory Culture - Final Staphylococcus aureus Escherichia coli 06/21/22 11:35 Blood Culture (Wb) - Other Blood Culture - Final Staphylococcus aureus 06/21/22 15:43 Nasal Secretion SARS-CoV-2 Antigen (Rapid) - Final 06/21/22 14:00 Urine Catheter - Catheter Streptococcus pneumoniae Antigen (M - Final 06/21/22 14:00 Urine Catheter - De La Fuente Legionella Antigen - Final 06/21/22 10:03 Mucosa - Nose - Final Rhythm Strip Rhythm Strip: A-fib Rate: 134 Ectopy: - (Significant ectopy noted throughout the evening) Physical Exam Narrative Const: On vent. No apparent distress Cardio: Normal S1, S2 rate controlled Respiratory: No audible wheezing. Diminished breath sounds. : Indwelling De La Fuente with scant yellow urine in bag GI: Positive bowel sounds Extremities: Generalized edema noted bilateral lower legs, feet, arms and hands Nontunneled temporary right IJ HD catheter dressing clean, dry and intact Assessment & Plan Assessment/Plan (1) Cardiopulmonary arrest with successful resuscitation: (2) Septic shock: (3) CHEN (acute kidney injury): (4) GI bleed: PLAN: Plan - Initially nonoliguric CHEN likely pre-renal from septic shock (Staph aureus bacteremia and E. coli/staph aureus UTI), cardiopulmonary arrest with decreased renal perfusion. CHEN has evolved to ATN. -Patient has normal baseline creatinine. With ATN, the patient has become anuric. -Patient had temporary HD catheter placed 06/25. First HD on 06/25/2022 with no UF because of hypotension. -Second hemodialysis today with longer treatment. We are using low potassium dialysate because of hyperkalemia. -We will dialyze patient again tomorrow. -Unfortunately, we are unable to remove much fluid because of hypotension and tachycardia. -Continue to keep the patient off potassium supplements. -On antibiotics, cefazolin.
[2022-06-27] MEDS: Senna/Docusate Sodium 1 Tablet 2 TABLET GT (21:22)
[2022-06-28] VITALS (30 sets, daily range): BP systolic 81–115; BP diastolic 46–76; PULSE 127–168; RESP 12–24; TEMP 36.4–38.1; O2SAT 88–97
[2022-06-28] MEDS: 0.9% Saline Lock 10 ML Syringe IV (00:36)
[2022-06-28] MEDS: Hydrocortisone Sod Succinate 100 MG/2 ML Vial 50 MG IV ×2 (00:36→05:13)
[2022-06-28 03:33] LABS: Hematocrit 29.5 % (37-47); Hemoglobin 8.7 g/dL (12.0-15.0); Mean Corp Hgb Conc 29.5 g/dL (32-36); Mean Corpuscular Hgb 26.3 pg (27.0-32.0); Mean Corpuscular Volume 89.1 fL (81-99); Mean Platelet Vol. 12.7 fl (6.2-12.0); POSITIVE COUNT YES; POSITIVE DIFFERENTIAL YES; POSITIVE MORPHOLOGY YES; Platelet Count 257 K/mm3 (150-450); RBC Distribution Width CV 24.3 % (11.6-14.6); RBC Distribution Width SD 72.9 fl (35.1-43.9); Red Blood Count 3.31 M/mm3 (4.2-5.4)
[2022-06-28 03:44] LABS: Differential Indicated MANUAL DIFF
[2022-06-28 03:52] LABS: Lymphocyte 4 % (19-41); Metamyelocyte 2 % (0-1); Myelocyte 1 % (0-0); Neutrophil-Band 9 % (0-5); Neutrophil-Segmented 82 % (47-70); Total Cells Counted 100 (MANUAL DIFF)
[2022-06-28 03:53] LABS: Hypochromasia RARE; Monocyte 2 % (0-10); Nucleated Red Bld Cells,Manual 19 % (0-5); Platelet Estimate ADEQUATE (ADEQ); Polychromasia RARE
[2022-06-28 03:54] LABS: Anisocytosis 1+; Macrocytosis RARE; Microcytosis 1+
[2022-06-28 03:55] LABS: Absolute Lymphocyte Count 1.93 X10^3/uL (0.83-4.51); Absolute Neutrophil Count 43.9 X10^3/uL (2.0-7.7); Lymphocyte # 1.93 X10^3/ul (0.83-4.51); Neutrophil # 43.86 X10^3/uL (2.7-7.7)
[2022-06-28 03:57] LABS: Corrected WBC 48.2 K/mm3 (4.4-11.0)
[2022-06-28 04:01] LABS: ALB/GLOB Ratio 0.3 RATIO (0.9-2.4); AST(SGOT) 220 U/L (15-37); Alanine Aminotransfer ALT/SGPT 36 U/L (13-56); Albumin, Serum 1.3 g/dL (3.2-5.0); Alkaline Phosphatase 254 U/L (45-117); Anion Gap 12 (5-15); BUN 89 mg/dL (7-18); BUN/Creat Ratio 30.7 RATIO (10-20); Calcium,Total 6.5 mg/dL (8.5-10.1); Chloride 99 mmol/L (98-107); EST Glomerular Filtration Rate 18 mL/min (>60); Est Glom Filt Rate - Afr Amer 21 mL/min (>60); Estimated Creatinine Clearance 21.33 ml/min; Globulin 4.4 g/dL (2.2-4.2); Glucose 94 mg/dL (74-106); Potassium 5.5 mmol/L (3.5-5.1); Protein, Total 5.7 g/dL (6.4-8.2); Sodium Level 133 mmol/L (136-145)
[2022-06-28] MEDS: CHLORHEXIDINE GLUC 2% CLOTH 1 EACH TOWELETTE TOPICAL (05:13)
[2022-06-28] MEDS: Menthol/Lanolin/Calamine/Znox 113 GM Tube 1 APPLIC TOPICAL (05:14)
[2022-06-28] MEDS: TITRATION PARAMETER CHANGE 1 EACH IV ×2 (05:57→10:18)
--- NOTE | 2022-06-28 07:30 | CT_ITS ---
HISTORY: Seizure like activity. TECHNIQUE: Multiple axial images were obtained of the head without intravenous contrast. A radiation dose optimization technique was used for this scan. 238 images. COMPARISON: 06/20/2022, 01/23/2022. FINDINGS: BRAIN PARENCHYMA: No focal attenuation abnormality. No acute intra-axial hemorrhage. CSF SPACES: Cerebral ventricles, cortical sulci, and other extra-axial CSF spaces slightly decreased in size compared to prior. No midline shift, abnormal enlargement of the cerebral ventricles, or other effacement of the basal cisterns. No acute extra-axial hemorrhage. CALVARIUM: Intact. PARANASAL SINUSES AND MASTOID AIR CELLS: Mild fluid in the mastoid air cells. ORBITS: Unremarkable. CT/Brain/Head without Contrast IMPRESSION: Narrowing of the extra-axial CSF spaces compared to prior, possible cerebral edema without significant midline shift or other mass effect. No acute intracranial hemorrhage identified. Electronically Signed: Cecilia Snider MD at 8:16 EST ,
--- NOTE | 2022-06-28 07:31 | PCM.PN.INT ---
Assessment & Plan Assessment/Plan (1) Septic shock: PLAN: Plan RECOMMENDATIONS: 1. Continue assist-control mode mechanical ventilation. Wean FiO2 and PEEP to maintain saturations at or above 90%. 2. Continue vancomycin given gram-positive cocci in blood culture 3. Wean pressors as tolerated to maintain MAP greater than 65 4. Appreciate nephrology input. Anticipate hemodialysis today 5. Continue stress dose steroids. Add vasopressin to decrease beta agonist stimulation given A. fib with RVR 6. Spontaneous breathing and awakening trials per protocol 7. Continue PPI therapy as ordered. 8. Continue to monitor H&H and transfuse if hemoglobin drops below 7 g/dL. 9. Lactulose and rifaximin per GI recommendations. 10. Obtain CT head IMPRESSIONS: 1. Septic shock with multisystem organ failure The patient presented to the hospital with a number of vague musculoskeletal complaints. She ultimately suffered from a cardiac arrest on the morning of June 21 and was subsequently found to have staph bacteremia. The patient has went on to develop fulminant septic shock with multisystem organ failure requiring multiple vasopressors. Patient has been holding pressure on no Levophed for almost 24 hours. The patient will be continued on broad-spectrum antimicrobials. Cultures are showing both MSSA and E. coli. Antibiotics had been narrowed, but there is some concern for the selection of MRSA given gram-positive cocci on recent blood culture while on antibiotics for MSSA. Echocardiogram shows elevated pulmonary artery pressures of 40 mmHg, but EF is preserved at 60%. Patient is much more volume overloaded at this time, so pulmonary artery pressures are likely higher. She will be maintained on stress dose steroids, pending improvement in her hemodynamic status. Okay to transition to prednisolone if this will help her liver function. Defer to GI. Clinical suspicion for repeat hypotension secondary to acute kidney injury and subsequent dysregulation. We will add vasopressin given patient's A. fib with RVR. If found to be MSSA, high clinical suspicion for occult source such as endocarditis 2. Acute combined respiratory failure The patient does have findings on plain film chest imaging concerning for underlying infection. However, she remains on empiric broad-spectrum antimicrobials. Sputum culture is currently pending. Continue assist-control mode mechanical ventilation. Wean FiO2 and PEEP to maintain oxygen saturations at or above 90%. Patient significantly volume positive. Worsening chest x-ray likely secondary to volume status and an element of atelectasis given migration of the endotracheal tube to the yoanna. We will attempt to wean PEEP if able to get to 50% FiO2. This will likely require volume removal. We will transition bronchodilators to as needed given A. fib with RVR 3. Acute kidney injury Likely prerenal/ischemic ATN in the setting of #1. Continue supportive measures as noted above. Creatinine has worsened. Continue to monitor urine output. Patient will require renal replacement therapy. Appreciate nephrology input. Patient does have significant elevation of BUN with decreased urine output. Dialysis completed yesterday. 4. History of alcoholic hepatitis/chronic alcohol dependency Complicates care, management, recovery and prognosis. Continue supportive care per GI recommendations. TIME: 35 minutes of critical care time, independent of procedures, was spent addressing the patient's septic shock with multisystem organ failure, acute combined respiratory failure, acute kidney injury, alcoholic hepatitis, review of all data and collaboration with the care team. Subjective Subjective Patient did okay overnight. Patient continues to be febrile and tachycardic. Patient did have dialysis yesterday, but only 500 cc were removed. Patient is no longer responsive. Patient did have seizure-like activity yesterday and was initiated on propofol. No additional seizures have been noted. Objective Data Objective Data Vital Signs: Vital Signs Temp Pulse Resp BP Pulse Ox O2 Del Method O2 Flow Rate 36.8 C 127 H 12 115/59 L 90 Mechanical Ventilator 4 06/28/22 07:00 06/28/22 07:00 06/28/22 07:00 06/28/22 07:00 06/28/22 07:00 06/28/22 07:00 06/21/22 09:00 FiO2 65 06/28/22 07:00 Oxygen Flow Rate (L/min) 4 Oxygen Delivery Method Mechanical Ventilator Weight: 128.9 kg Body Mass Index (BMI) 40.3 Intake & Output: Intake and Output for Last 24 Hours 06/26/22 06/27/22 06/28/22 23:59 23:59 23:59 Intake Total 1925.03 / 1982.13 4054.63 / 4074.06 450.70 / 450.70 Output Total 250 / 375 2004 Balance 1675.03 / 1608.13 2049.63 / 2069.06 430.70 / 430.70 Lab / Micro Data Attestation: I reviewed the patient's lab results. 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 WBC 48.2 H*, RBC 3.31 L, Hgb 8.7 L, Hct 29.5 L, MCV 89.1 D, MCH 26.3 L, MCHC 29.5 L, RDW Std Deviation 72.9 H, RDW Coeff of Arnold 24.3 H, Plt Count 257, MPV 12.7 H, Neut % (Auto) Not Reportable, Absolute Neuts (auto) 43.9 H, Absolute Lymphs (auto) 1.93, Total Counted 100, Neutrophils % (Manual) 82 H, Band Neutrophils % 9 H, Lymphocytes % (Manual) 4 L, Monocytes % (Manual) 2, Metamyelocytes % 2 H, Myelocytes % 1 H, Nucleated RBCs/100 WBC 19 H, Diff Path Review May foll, Platelet Estimate ADEQUATE, Polychromasia RARE, Hypochromasia RARE, Anisocytosis 1+, Microcytosis 1+, Macrocytosis RARE 06/28/22 03:25: Sodium 133 L, Potassium 5.5 H, Chloride 99, Carbon Dioxide 22.0, Anion Gap 12, BUN 89 H, Creatinine 2.90 H, Estim Creat Clear Calc 21.33, Est GFR (MDRD) Af Amer 21 L, Est GFR (MDRD) Non-Af 18 L, BUN/Creatinine Ratio 30.7 H, Glucose 94, Calcium 6.5 L*, Total Bilirubin 8.70 H, AST 220 H, ALT 36, Alkaline Phosphatase 254 H, Total Protein 5.7 L, Albumin 1.3 L, Globulin 4.4 H, Albumin/Globulin Ratio 0.3 L Micro: Microbiology 06/25/22 14:45 Blood Culture (Wb) - Anticubital Left Blood Culture - Preliminary Staphylococcus aureus 06/24/22 10:15 Blood Culture (Wb) - Pic Blood Culture - Preliminary Staphylococcus aureus 06/21/22 14:00 Urine Catheter - De La Fuente Urine Culture - Final Escherichia coli Staphylococcus aureus 06/21/22 11:35 Blood Culture (Wb) - Other Blood Culture - Final Staphylococcus aureus 06/21/22 09:39 Sputum, Induced/Lukens Gram Stain - Final 06/21/22 09:39 Sputum, Induced/Lukens Respiratory Culture - Final Staphylococcus aureus Escherichia coli 06/21/22 11:35 Blood Culture (Wb) - Other Blood Culture - Final Staphylococcus aureus 06/21/22 15:43 Nasal Secretion SARS-CoV-2 Antigen (Rapid) - Final 06/21/22 14:00 Urine Catheter - Catheter Streptococcus pneumoniae Antigen (M - Final 06/21/22 14:00 Urine Catheter - [place] Fuente Legionella Antigen - Final 06/21/22 10:03 Mucosa - Nose - Final Rhythm Strip Rhythm Strip: A-fib Rate: 133 Ectopy: - (Significant ectopy noted throughout the evening) Physical Exam Const Constitutional Narrative: The patient is quite ill and toxic in appearance. She is intubated and mechanically ventilated. Anasarca noted General Appearance: ill appearing and patient mechanically ventilated HEENT normocephalic and head/scalp atraumatic Eyes PERRL Eyes Narrative: Still fights on eye examination Sclera: sclera abnormal Positive for bilateral Details: scleral injection and other (Icterus noted) Neck supple General: trachea midline Chest inspection of chest normal Resp Resp Narrative: Coarse mechanical breath sounds bilaterally, worse on the right. Breathing over the vent Auscultation: rhonchi and diminished lung sounds; Negative for rales or wheezes Cardio regular rate, regular rhythm, S1 normal heart sound, S2 normal heart sound and no murmurs Rate: tachycardic GI normal to inspection, nondistended, normoactive bowel sounds Inspection: anasarca present and abdominal distention Auscultation: normoactive bowel sounds Extremity no clubbing, cyanosis or edema General Extremity: edema Skin no rashes or lesions noted Neuro Sensorium / Orientation: sedated on vent Psych Mood & Affect: flat affect Charges/Coding Procedures Hospitalists Procedures: 16998 Critial Care 1st Hr
--- NOTE | 2022-06-28 08:25 | PN.HOSP_ITS ---
Subjective Subjective Follow-up on septic shock/acute cardiopulmonary arrest/acute GI bleed: Patient was seen and examined.?Patient had an episode of seizure-like activity last night; she was started on propofol. She had dialysis yesterday and 500mls was removed. She still having fever and remains tachycardic. Remains also hypotensive, vasopressin added to to Levophed. Objective Data Objective Data Vital Signs: Vital Signs Temp Pulse Resp BP Pulse Ox O2 Del Method O2 Flow Rate 98.2 F 127 H 12 115/59 L 90 Mechanical Ventilator 4 06/28/22 07:00 06/28/22 07:00 06/28/22 07:00 06/28/22 07:00 06/28/22 07:00 06/28/22 07:00 06/21/22 09:00 FiO2 65 06/28/22 07:00 Oxygen Flow Rate (L/min) 4 Oxygen Delivery Method Mechanical Ventilator Weight: 128.9 kg Body Mass Index (BMI) 40.3 Intake & Output: Intake and Output for Last 24 Hours 06/26/22 06/27/22 06/28/22 23:59 23:59 23:59 Intake Total 1925.03 / 1983.13 4054.63 / 4074.06 450.70 / 450.70 Output Total 250 / 375 2004 Balance 1675.03 / 1608.13 2049.63 / 2069.06 430.70 / 430.70 Lab / Micro Data Result Diagrams: 06/28/22 03:25 06/28/22 03:25 Labs: Laboratory Results - last 24 hr 06/26/22 03:50: Diff Path Review Reviewed 06/27/22 03:25: Diff Path Review Reviewed 06/27/22 03:25: Total Creatine Kinase 123, Triglycerides 335 H 06/28/22 03:25: 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, 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 WBC 48.2 H*, RBC 3.31 L, Hgb 8.7 L, Hct 29.5 L , MCV 89.1 D, MCH 26.3 L, MCHC 29.5 L, RDW Std Deviation 72.9 H, RDW Coeff of Arnold 24.3 H, Plt Count 257, MPV 12.7 H, Neut % (Auto) Not Reportable, Absolute Neuts (auto) 43.9 H, Absolute Lymphs (auto) 1.93, Total Counted 100, Neutrophils % (Manual) 82 H, Band Neutrophils % 9 H, Lymphocytes % (Manual) 4 L, Monocytes % (Manual) 2, Metamyelocytes % 2 H, Myelocytes % 1 H, Nucleated RBCs/100 WBC 19 H, Diff Path Review May foll, Platelet Estimate ADEQUATE, Polychromasia RARE, Hypochromasia RARE, Anisocytosis 1+, Microcytosis 1+, Macrocytosis RARE 06/28/22 03:25: Sodium 133 L, Potassium 5.5 H, Chloride 99, Carbon Dioxide 22.0, Anion Gap 12, BUN 89 H, Creatinine 2.90 H, Estim Creat Clear Calc 21.33, Est GFR (MDRD) Af Amer 21 L, Est GFR (MDRD) Non-Af 18 L, BUN/Creatinine Ratio 30.7 H, Glucose 94, Calcium 6.5 L*, Total Bilirubin 8.70 H, AST 220 H, ALT 36, Alkaline Phosphatase 254 H, Total Protein 5.7 L, Albumin 1.3 L, Globulin 4.4 H, Albumin/Globulin Ratio 0.3 L Micro: Microbiology 06/25/22 14:45 Blood Culture (Wb) - Anticubital Left Blood Culture - Preliminary Staphylococcus aureus 06/24/22 10:15 Blood Culture (Wb) - Pic Blood Culture - Preliminary Staphylococcus aureus 06/21/22 14:00 Urine Catheter - De [place] Fuente Urine Culture - Final Escherichia coli Staphylococcus aureus 06/21/22 11:35 Blood Culture (Wb) - Other Blood Culture - Final Staphylococcus aureus 06/21/22 09:39 Sputum, Induced/Lukens Gram Stain - Final 06/21/22 09:39 Sputum, Induced/Lukens Respiratory Culture - Final Staphylococcus aureus Escherichia coli 06/21/22 11:35 Blood Culture (Wb) - Other Blood Culture - Final Staphylococcus aureus 06/21/22 15:43 Nasal Secretion SARS-CoV-2 Antigen (Rapid) - Final 06/21/22 14:00 Urine Catheter - Catheter Streptococcus pneumoniae Antigen (M - Final 06/21/22 14:00 Urine Catheter - De [place] Fuente Legionella Antigen - Final 06/21/22 10:03 Mucosa - Nose - Final Radiography Diagnostic Testing: Radiology Impression Brain CT 06/28/22 07:30 IMPRESSION: Narrowing of the extra-axial CSF spaces compared to prior, possible cerebral edema without significant midline shift or other mass effect. No acute intracranial hemorrhage identified. Electronically Signed: Cecilia N. Tylor, MD at 8:16 EST , Rhythm Strip Rhythm Strip: A-fib Rate: 133 Ectopy: - (Significant ectopy noted throughout the evening) Physical Exam Narrative Physical exam: General: Sedated, intubated, on mechanical ventilator, anasarca, jaundiced++ HEENT: Atraumatic, ETT and OG tube in situ Oral: Moist Mucosa Neck: Supple Lungs: Diminished to auscultation Cardiovascular: HS I+II, regular, no murmurs Abdomen: Bowel Sounds Present, Soft, Non Tender Extremities:Bilateral pedal edema +2 Skin: No rashes, No breakdown Neurological: Grossly intact Psych/Mental Status: Appropriate Assessment & Plan Assessment/Plan (1) Cardiopulmonary arrest with successful resuscitation: (2) Septic shock: PLAN: Plan 1. Septic shock secondary to staph aureus bacteremia/E. coli/staph aureus UTI, pneumonia ,persistent Patient also with septic pulmonary emboli seen on CT of the abdomen/pelvis on 06/24/2022 Patient remains unstable, continue Levophed and vasopressin drips, cefazolin, IV hydrocortisone Urine cultures growing E. coli and staph aureus. Blood cultures growing MSSA 2. Hyperkalemia, improved to 5.5 with dialysis Continue with dialysis, will repeat labs in am 3. CHEN secondary to hepatorenal/ATN, started on dialysis 06/25/22 BUN/Cr 89/2.90, nephrology following Repeat labs in am 4. A. fib with RVR likely secondary to the above, persistent Continue on amiodarone drip 5. Acute GI bleed secondary to 2 gastric ulcers, s/p EGD on 06/24/22, Status post clipping over visible vessels Continue on octreotide, IV PPI BID 6. Anemia, acute blood loss, secondary to #3, s/p 2 units pRBCs Hb is 8.7, will continue to monitor 7. Acute hypoxic respiratory failure secondary to acute cardiopulmonary arrest Remains on mechanical ventilator; scientific advisor following 8. Acute cardiopulmonary arrest, likely multifactorial, will continue to monitor. Patient now with seizure-like activity, CT of the brain is pending 9. Acute combined respiratory metabolic acidosis, improved 10. Acute transaminitis, worsening, total bilirubin, AST, ALP worsening Will check ammonia levels GI following, continue rifaximin, will trend LFTs in am 11. Thrombocytopenia, acute on chronic, likely secondary to alcohol use, improving 12. Hepatic steatosis secondary to chronic alcohol use, continue lactulose, rifaximin GI following 13. DVT PPx- SCDS Charges/Coding Visit Charges Inpatient E&M: 52989 Subs Hosp L3
[2022-06-28] MEDS: Propofol 10MG/Ml 1,000 MG/100 ML Bottle 7.7 MG CONT INF (09:40)
[2022-06-28] MEDS: Chlorhexidine 15 ML PO (10:00)
[2022-06-28] MEDS: Amiodarone 360 MG in Dextrose 5% Viaflo Bag 192.8 ML 16.7 MG CONT INF (10:58)
--- NOTE | 2022-06-28 12:18 | DIALYSIS ---
Addendum entered by Michael Salas 06/28/22 12:55: cancelled note - duplicative. Original Note: 06/28/22, 13:00 Hemodialysis x 3.5 hours, net UF +100 - patient unable to tolerate UF despite two vasopressor gtts. [facility] patient care team informed and aware. Gave 100ml bolus x 1 r/t hypotension. Blood returned topatient at end of treatment. HD catheter ports closed with heparin (1000 units/ml x 1.3ml in each port). RN report at bedside to Lilly Horowitz
--- NOTE | 2022-06-28 12:22 | DIALYSIS ---
Addendum entered by Michael Salas 06/28/22 12:54: 06/28/22 Hemodialysis x 3.0 hours. Treatment stopped 30 minutes early r/t family decision to change g.o.c. to [employer]. Net UF +100 ml. Hypotensive (70s-80s/40s) with UF, despite two vasopressor gtts and amiodarone gtt. Gave 100ml NS bolus x1 for hypotension. [facility] care team informed and aware. Blood returned to patient at end of treatment. HD catheter ports closed with heparin (1000 units/ml x 1.3 ml x 2). RN report at bedside. Original Note: 06/28/22 Hemodialysis x 3.5 hours, net UF +100 ml. Hypotensive (70s-80s/40s) with UF, despite two vasopressor gtts and amiodarone gtt. Gave 100ml NS bolus x1 for hypotension. [facility] care team informed and aware. Blood returned to patient at end of treatment. HD catheter ports closed with heparin (1000 units/ml x 1.3 ml x 2). RN report at bedside.
--- NOTE | 2022-06-28 12:55 | PCM.PN.BLA ---
Progress Note CT scan of the brain done this morning was suggestive of cerebral edema Patient underwent dialysis; unable to remove any fluid Met with the family at the bedside; patient's overall prognosis and care discussed Her at the bedside agreed to withdraw care Comfort orders placed Time spent updating , rest of the family, discussing prognosis, answering questions, discussing the next steps of withdrawing of care and terminal weanin minutes Procedures Hospitalists Procedures: 99418 Advncd Care Plan 30 Min
--- NOTE | 2022-06-28 13:10 | CASEMGMT ---
SW Note SW called patient's Kit and left voice mail message requesting a time for family meeting with MD Purcell on Thursday or Thursday. SW updated RN. SW met with patient's daughter, Leia and patient's , Kit. Provided emotional support to family members. SW remain available to family if needs arise. Plan: Emotional support provided Soniya VELÁSQUEZ
[2022-06-28] MEDS: Heparin 10,000 UNITS/10 ML Vial IV (13:41)
--- NOTE | 2022-06-28 15:13 | PCM.DEATH ---
Preliminary Cause of Preliminary Cause of Preliminary Cause of : Septic shock Acute kidney injury/ATN Acute liver failure Cerebral edema All ongoing, worsening over 1 week Date of Admission: 06/20/22 Date of : 06/28/22 Principle Diagnosis Problem List: Active and Suspected Problems (Updated 06/24/22 @ 13:52 by GISELLE Sheffield) CHEN (acute kidney injury) (Acute) MSSA bacteremia (Acute) Coagulopathy (Acute) GI bleed (Acute) Septic shock (Acute) Cardiopulmonary arrest with successful resuscitation (Acute) Hepatomegaly (Acute) Thrombocytopenia (Acute) Alcoholic hepatitis (Acute) Alcohol abuse (Acute) Elevated liver enzymes (Acute) Debility (Acute) Hospital Course 56-year-old female with past medical history of hypertension, hyperlipidemia, who presented with multiple complaints of pain in her joints, nausea. Patient admitted that she had been drinking at least 1 large bottle of vodka every day. Patient was found to be mildly hypoxic, tachycardic, he had elevated liver enzymes. It was felt that her hypoxia was secondary to acute exacerbation of CHF. She was also started on Ativan taper for alcohol withdrawal. Patient was found to be hypoglycemic the next morning, she received D50. She subsequently was lethargic and tachycardic. She was transferred to the intensive care unit. She however had a cardiopulmonary arrest soon after she arrived in ICU. She was intubated and placed on mechanical ventilator. Patient had a long and tortuous hospital course in the ICU. Her blood cultures were growing staph aureus bacteremia and E. coli. She also had stepmothers and E. coli in her urine. She was on antibiotics. She became more hypotensive, started on Levophed and vasopressin, as well as hydrocortisone. Patient underwent EGD on 06/24/2022 for episodes of GI bleed, 2 gastric ulcers were found, status post clipping of the visible vessels. She was kept on octreotide, IV PPI twice daily. She did receive 2 units of packed RBCs. Patient did have worsening liver enzymes as well as acute kidney injury. Nephrology was consulted and patient was started on dialysis on 06/25/22. She was volume overloaded but could not take much fluid on account of worsening hypotension. Gastroenterology, intensive care, ID were consulted. On 06/28/22 [facility], patient was noted to have seizure-like activity. She did require some Ativan. CT of the brain done showed cerebral edema. Family elected to withdrawal care. Comfort orders were placed. Time of was 1447 HRs Visit Charges Inpatient E&M: 36329 Disch Hosp
--- NOTE | 2022-06-28 16:39 | NURSING ---
Patient noted to be without respirations, pulse and blood pressure at 1447. Verified by second RN, Cely Rollins
[2022-06-30 12:58] LABS: Pathologist Review Reviewed
== END 2022-06-28 16:15 | DRG 870 ==
LOC: ED 14:21 → PCU 14:40 → ICU 06-21 09:29
PROVIDERS: Family Medicine; Internal Medicine; Internal Medicine Critical Care Medicine; Internal Medicine Gastroenterology; Internal Medicine Nephrology; Nurse Practitioner Adult Health; Admitting Provider Student in an Organized Health Care Education/Training Program; Emergency Provider Student in an Organized Health Care Education/Training Program; PCP Family Medicine; Visit Provider Internal Medicine
PROC: 0DJ08ZZ Inspection of Upper Intestinal Tract, Via Natural or Artificial Opening Endoscopic (ICD-10-PCS; CPT 43235; principal; 2022-06-23 11:25)
DX: A41.01 Sepsis due to Methicillin susceptible Staphylococcus aureus (principal); J96.01 Acute respiratory failure with hypoxia; N17.0 Acute kidney failure with tubular necrosis; G93.6 Cerebral edema; K72.00 Acute and subacute hepatic failure without coma; R65.21 Severe sepsis with septic shock; K25.4 Chronic or unspecified gastric ulcer with hemorrhage; D62 Acute posthemorrhagic anemia; E87.21 Acute metabolic acidosis; I50.32 Chronic diastolic (congestive) heart failure; K76.6 Portal hypertension; D68.9 Coagulation defect, unspecified; F10.239 Alcohol dependence with withdrawal, unspecified; E87.4 Mixed disorder of acid-base balance; N30.00 Acute cystitis without hematuria; I48.0 Paroxysmal atrial fibrillation; E86.0 Dehydration; I46.9 Cardiac arrest, cause unspecified; I11.0 Hypertensive heart disease with heart failure; I48.91 Unspecified atrial fibrillation; D69.6 Thrombocytopenia, unspecified; E78.5 Hyperlipidemia, unspecified; K70.10 Alcoholic hepatitis without ascites; S80.01XA Contusion of right knee, initial encounter; M43.12 Spondylolisthesis, cervical region; S70.01XA Contusion of right hip, initial encounter; S40.011A Contusion of right shoulder, initial encounter; E16.2 Hypoglycemia, unspecified; E87.6 Hypokalemia; K76.0 Fatty (change of) liver, not elsewhere classified; E87.5 Hyperkalemia; M54.2 Cervicalgia; W19.XXXA Unspecified fall, initial encounter; E83.42 Hypomagnesemia; R74.01 Elevation of levels of liver transaminase levels; Z66 Do not resuscitate; Z87.891 Personal history of nicotine dependence; Z79.1 Long term (current) use of non-steroidal anti-inflammatories (NSAID); Z79.52 Long term (current) use of systemic steroids; B96.20 Unspecified Escherichia coli [E. coli] as the cause of diseases classified elsewhere; G89.29 Other chronic pain; Z86.73 Personal history of transient ischemic attack (TIA), and cerebral infarction without residual deficits
CPT/HCPCS: 31500; 31720; 36415; 36569; 36600; 70450; 71045; 72125; 73030; 73502; 73560; 74176; 76705; 80048; 80053; 80076; 80202; 80307; 81001; 82077; 82140; 82550; 82803; 82962; 83605; 83735; 84100; 84478; 84484; 84550; 85014; 85018; 85025; 85610; 85652; 86140; 86706; 86850; 86900; 86901; 86920; 86922; 87040; 87070; 87077; 87086; 87088; 87186; 87205; 87340; 87426; 87449; 87632; 90937; 92950; 93005; 93306; 93971; 94002; 94003; 94640; 97802; 97803; 99285; J7030; J7040; J7050; P9016; Q9957; A4216; C8929; G0257; J0610; J1940; J2405; J3010; J3490